=== PATIENT | female | born 1945 | race African-American/Black ===

== ENCOUNTER 2016-08-20 09:42 | Inpatient (IN) | payer MEDICARE, BC, OTHER ==
[2016-08-20] MEDS ORDERED: CEFTRIAXONE 1 GM/D5W RTU 50 ML IV ONE (09:44)
[2016-08-20] MEDS ORDERED: NORMAL SALINE 1000 ML 1,000 ML IV ONE (09:44)
[2016-08-20] MEDS ORDERED: NORMAL SALINE 1000 ML 1,000 ML IV PRN ×2 (09:45→19:50)
--- NOTE | 2016-08-20 09:45 | ER Document Report ---
ED Medical Screen (RME) - General Stated Complaint: FEVER AND BLOOD PRESSURE CONCERNS Time Seen by Provider: 08/20/16 09:44 Mode of Arrival: Wheelchair Information source: Patient, Relative Notes: 70-year-old female presents with history of diabetes with family's concern of fever and altered mental status I have greeted and performed a rapid initial assessment of this patient. A comprehensive ED assessment and evaluation of the patient, analysis of test results and completion of the medical decision making process will be conducted by additional ED providers. PHYSICAL EXAMINATION: GENERAL: Febrile but well-appearing, well-nourished and in no acute distress. HEAD: Atraumatic, normocephalic. EYES: Pupils equal round extraocular movements intact, conjunctiva are normal. ENT: Nares patent NECK: Normal range of motion LUNGS: No respiratory distress Musculoskeletal: Normal range of motion NEUROLOGICAL: Normal speech, normal gait. PSYCH: Normal mood, normal affect. SKIN: Warm, Dry, normal turgor, no rashes or lesions noted. TRAVEL OUTSIDE OF THE [place] IN LAST 30 DAYS: No - Related Data Allergies/Adverse Reactions: No Known Allergies Allergy (Unverified 11/02/15 00:22) Past Medical History - Past Medical History Cardiac Medical History: Reports: Hx Hypercholesterolemia, Hx Hypertension Endocrine Medical History: Reports: Hx Diabetes Mellitus Type 2 Past Surgical History: Reports: Hx Hysterectomy - Immunizations Hx Diphtheria, Pertussis, Tetanus Vaccination: Yes
[2016-08-20 10:18] LABS: ABSOLUTE BASOPHILS # (AUTO) 0.1 10^3/uL (0.0-0.2); ABSOLUTE EOSINOPHILS # (AUTO) 0.2 10^3/uL (0.0-0.6); ABSOLUTE LYMPHOCYTES (AUTO) 2.5 10^3/uL (0.5-4.7); ABSOLUTE NEUT (AUTO) 13.6 10^3/uL (1.7-8.2); BASOPHILS % (AUTO) 0.6 % (0-2); EOSINOPHILS % (AUTO) 1.2 % (0-6); HEMATOCRIT 30.3 % (36.0-47.0); HEMOGLOBIN 8.9 g/dL (12.0-15.5); HGB HCT DIFFERENCE -3.6; LYMPHOCYTES % (AUTO) 13.7 % (13-45); MEAN CORPUSCULAR HEMOGLOBIN 24.2 pg (27.0-33.4); MEAN CORPUSCULAR HGB CONC 29.5 g/dL (32.0-36.0); MEAN CORPUSCULAR VOLUME 82 fl (80-97); MONOCYTES % (AUTO) 10.7 % (3-13); RED BLOOD COUNT 3.69 10^6/uL (3.72-5.28); RED CELL DISTRIBUTION WIDTH 17.2 % (11.5-14.0); SEGMENTED NEUTROPHILS % (AUTO) 73.8 % (42-78); WHITE BLOOD COUNT 18.5 10^3/uL (4.0-10.5)
[2016-08-20 10:21] LABS: PROTHROMBIN TIME 13.6 SEC (11.4-15.4)
[2016-08-20 10:22] LABS: VENOUS BLOOD BASE EXCESS 3.2 mmol/L; VENOUS BLOOD HCO3 27.8 mmol/L (20-32); VENOUS BLOOD PCO2 42.8 mmHg (35-63); VENOUS BLOOD PH 7.43 (7.30-7.42)
--- NOTE | 2016-08-20 10:28 | ER Document Report ---
ED General - General Chief Complaint: Fever Stated Complaint: FEVER AND BLOOD PRESSURE CONCERNS Time Seen by Provider: 08/20/16 09:44 Mode of Arrival: Wheelchair Information source: Patient, Relative Notes: 70-year-old diabetic female presents with complaints of fever altered mental status from home. Patient appears to have been confused per family did not know that it was morning. she denies any nausea or vomiting TRAVEL OUTSIDE OF THE [place] IN LAST 30 DAYS: No - Related Data Allergies/Adverse Reactions: No Known Allergies Allergy (Unverified 11/02/15 00:22) Past Medical History - General Information source: Patient, Relative - Social History Smoking Status: Never Smoker Cigarette use (# per day): No Chew tobacco use (# tins/day): No Smoking Education Provided: No Family History: Reviewed & Not Pertinent Patient has suicidal ideation: No Patient has homicidal ideation: No - Past Medical History Cardiac Medical History: Reports: Hx Hypercholesterolemia, Hx Hypertension Endocrine Medical History: Reports: Hx Diabetes Mellitus Type 2 Renal/ Medical History: Denies: Hx Peritoneal Dialysis Past Surgical History: Reports: Hx Hysterectomy - Immunizations Hx Diphtheria, Pertussis, Tetanus Vaccination: Yes Review of Systems - Review of Systems Notes: REVIEW OF SYSTEMS: CONSTITUTIONAL : admitst ofevers and chills EENT: Denies eye, ear, throat, or mouth pain or symptoms. Denies nasal or sinus congestion or discharge. Denies throat, tongue, or mouth swelling or difficulty swallowing. CARDIOVASCULAR: Denies chest pain. Denies palpitations or racing or irregular heart beat. Denies ankle edema. RESPIRATORY: Denies cough, cold, or chest congestion. Denies shortness of breath, difficulty breathing, or wheezing. GASTROINTESTINAL: Denies abdominal pain or distention. Denies nausea, vomiting , or diarrhea. Denies blood in vomitus, stools, or per rectum. Denies black, tarry stools. Denies constipation. GENITOURINARY: Denies difficulty urinating, painful urination, burning, frequency, blood in urine, or discharge. FEMALE GENITOURINARY: Denies vaginal bleeding, heavy or abnormal periods, irregular periods. Denies vaginal discharge or odor. MUSCULOSKELETAL: Denies back or neck pain or stiffness. Denies joint pain or swelling. SKIN: Denies rash, lesions or sores. HEMATOLOGIC : Denies easy bruising or bleeding. LYMPHATIC: Denies swollen, enlarged glands. NEUROLOGICAL: confusion PSYCHIATRIC: Denies anxiety or stress. Denies depression, suicidal ideation, or homicidal ideation. ALL OTHER SYSTEMS REVIEWED AND NEGATIVE. PHYSICAL EXAMINATION: GENERAL: Febrile. HEAD: Atraumatic, normocephalic. EYES: Pupils equal round and reactive to light, extraocular movements intact, conjunctiva are normal. ENT: Nares patent, oropharynx clear without exudates. Moist mucous membranes. NECK: Normal range of motion, supple without lymphadenopathy LUNGS: Breath sounds clear to auscultation bilaterally and equal. No wheezes rales or rhonchi. HEART: Regular rate and rhythm without murmurs ABDOMEN: Soft, nontender, nondistended abdomen. No guarding, no rebound. No masses appreciated. Female : deferred Musculoskeletal: Normal range of motion, no pitting or edema. No cyanosis. NEUROLOGICAL: Cranial nerves grossly intact. Normal speech, normal gait. Normal sensory, motor exams PSYCH: Normal mood, normal affect. SKIN: Warm, Dry, normal turgor, no rashes or lesions noted. Dictation was performed using [employer] voice recognition software Physical Exam - Vital signs Vitals: Temp Pulse Resp BP Pulse Ox 102.4 F H 122 H 20 131/75 H 94 08/20/16 09:45 08/20/16 09:45 08/20/16 09:45 08/20/16 09:45 08/20/16 09:45 Course - Re-evaluation Re-evalutation: 08/20/16 11:28 Patient has met sirs criteria, does not appear to have an obvious source at this time but has a very high white count lactic acidosis, she will be treated medically and presumptively for pneumonia Patient given Tylenol antibiotics IV fluids - Vital Signs Vital signs: Temp Pulse Resp BP Pulse Ox 102.4 F H 122 H 17 137/77 H 92 08/20/16 09:45 08/20/16 09:45 08/20/16 11:01 08/20/16 11:01 08/20/16 11:01 - Laboratory Result Diagrams: 08/20/16 10:02 08/20/16 10:02 Laboratory results interpreted by me: 08/20/16 08/20/16 08/20/16 10:02 10:02 10:02 WBC 18.5 H RBC 3.69 L Hgb 8.9 L Hct 30.3 L MCH 24.2 L MCHC 29.5 L RDW 17.2 H Absolute Neutrophils 13.6 H Absolute Monocytes 2.0 H VBG pH Glucose 262 H Lactic Acid 2.4 H Calcium 10.6 H AST 62 H Alkaline Phosphatase 147 H Urine Protein Ur Leukocyte Esterase 08/20/16 08/20/16 10:02 10:45 WBC RBC Hgb Hct MCH MCHC RDW Absolute Neutrophils Absolute Monocytes VBG pH 7.43 H Glucose Lactic Acid Calcium AST Alkaline Phosphatase Urine Protein 30 H Ur Leukocyte Esterase TRACE H - Diagnostic Test Radiology reviewed: Image reviewed, Reports reviewed - EKG Interpretation by Ne EKG shows normal: Sinus rhythm, [place], Intervals Rate: Tachycardia Critical Care Note - Critical Care Note Total time excluding time spent on procedures (mins): 33 Comments: 33 minutes of critical care time spent in direct contact evaluating and reevaluating the patient, treating symptoms, reviewing labs and studies and speaking with family and consultants excluding any procedures Discharge - Discharge Clinical Impression: Increased lactic acid level Sepsis Qualifiers: Sepsis type: sepsis due to unspecified organism Qualified Code(s): A41.9 - Sepsis, unspecified organism Pneumonia Qualifiers: Pneumonia type: due to unspecified organism Laterality: unspecified laterality Lung location: unspecified part of lung Qualified Code(s): J18.9 - Pneumonia, unspecified organism Condition: Stable Disposition: ADMITTED INPATIENT Admitting Provider: Aditya Unit Admitted: [facility]
[2016-08-20 10:35] LABS: ALANINE AMINOTRANSFERASE 44 U/L (9-52); ALBUMIN 4.1 g/dL (3.5-5.0); ALKALINE PHOSPHATASE 147 U/L (38-126); ANION GAP 11 (5-19); ASPARTATE AMINO TRANSFERASE 62 U/L (14-36); BILIRUBIN,DIRECT 0.4 mg/dL (0.0-0.4); BILIRUBIN,TOTAL 1.1 mg/dL (0.2-1.3); BLOOD UREA NITROGEN 12 mg/dL (7-20); CALCIUM 10.6 mg/dL (8.4-10.2); CARBON DIOXIDE 28 mmol/L (22-30); CHLORIDE 99 mmol/L (98-107); CREATININE RESULT 0.82 mg/dL (0.52-1.25); GLUCOSE 262 mg/dL (75-110); POTASSIUM 4.7 mmol/L (3.6-5.0); TOTAL PROTEIN 8.1 g/dL (6.3-8.2)
--- NOTE | 2016-08-20 11:09 | RADIOLOGY REPORT (SQ) ---
EXAM DESCRIPTION: CHEST SINGLE VIEW COMPLETED DATE/TIME: 08/20/2016 10:49 am REASON FOR STUDY: fever COMPARISON: 07/14/2014, 05/02/2013 chest films EXAM PARAMETERS: NUMBER OF VIEWS: One view. TECHNIQUE: Single frontal radiographic view of the chest acquired. RADIATION DOSE: NA LIMITATIONS: None. FINDINGS: LUNGS AND PLEURA: No opacities, masses or pneumothorax. No pleural effusion. Benign calci fied granuloma right midlung. MEDIASTINUM AND HILAR STRUCTURES: No masses. Contour normal. HEART AND VASCULAR STRUCTURES: Heart normal in size. Normal vasculature. BONES: No acute findings. HARDWARE: None in the chest. OTHER: No other significant finding. IMPRESSION: NO ACUTE RADIOGRAPHIC FINDING IN THE CHEST. TECHNICAL DOCUMENTATION: JOB ID: [id number]
[2016-08-20 11:13] LABS: APPEARANCE,URINE SLIGHTLY-CLOUDY; BILIRUBIN,URINE NEGATIVE (NEGATIVE); GLUCOSE, URINE NEGATIVE (NEGATIVE); KETONES,URINE NEGATIVE (NEGATIVE); LEUKOCYTE ESTERASE,URINE TRACE (NEGATIVE); NITRITE,URINE NEGATIVE (NEGATIVE); PROTEIN,URINE 30 mg/dL (NEGATIVE); UROBILINOGEN,URINE NEGATIVE mg/dL (<2.0)
--- NOTE | 2016-08-20 12:58 | RADIOLOGY REPORT (SQ) ---
EXAM DESCRIPTION: CT FACIAL AREA WITH COMPLETED DATE/TIME: 08/20/2016 12:24 pm REASON FOR STUDY: fever COMPARISON: None. TECHNIQUE: Post contrast images through the facial bones and orbits windowed for bone and soft tissu e. Additional coronal and sagittal reconstructed images reviewed. All images stored on PACS. All CT scanners at this facility use dose modulation, iterative reconstruction, and/or weight based d osing when appropriate to reduce radiation dose to as low as reasonably achievable (ALARA). [facility]: Dose Right [facility]: CareDose [facility]: Dose Right [facility]: Teradose 4D [facility]: Wuzzuf CONTRAST TYPE AND DOSE: contrast/concentration: Isovue 370.00 mg/ml; Total Contrast Delivered: 50.0 ml; Total Saline Delivered: 50.0 ml RENAL FUNCTION: Creatinine 0.82 RADIATION DOSE: Up-to-date CT equipment and radiation dose reduction techniques were employed. CTDIv ol: 30.4 mGy. DLP: 610 mGy-cm. . LIMITATIONS: None. FINDINGS: FACIAL BONES: No fracture or bone lesion. ORBITS: Intact. No fracture. Symmetric intact globes and retroorbital soft tissues. PARANASAL SINUSES: No air-fluid levels worrisome for acute sinusitis. Minimal mucous membrane thicke andre roof left maxillary sinus. Left maxillary sinus outlet mildly narrowed by Lulú cell on grider l image 27. Pneumatized right middle terminate. Midline nasal septum. SOFT TISSUES: No mass or edema. No abnormal enhancement. INFERIOR BRAIN: Limited view. No acute findings. OTHER: There are dental caries along left lower incisor teeth, with periapical tooth root lucency wor risome for infection, best shown on axial images 17-21. IMPRESSION: No CT evidence of acute sinusitis. Dental caries along lower incisor teeth. Lateral left lower incisor has a periapical tooth root luce ncy worrisome for infection TECHNICAL DOCUMENTATION: JOB ID: [id number] Quality ID # [id number]: Final reports with documentation of one or more dose reduction techniques (e.g., Au tomated exposure control, adjustment of the mA and/or kV according to patient size, use of iterative reconstruction technique) 2010 [employer]- All Rights Reserved
--- NOTE | 2016-08-20 13:07 | EKG REPORT ---
SEVERITY:- ABNORMAL ECG - SINUS TACHYCARDIA LEFT AXIS DEVIATION NONSPECIFIC ST-T CHANGES- INFERIOR LEADS : Confirmed by: Isidoro Dobbs MD 20-Aug-2016 13:06:26
[2016-08-20] MEDS ORDERED: GLUCAGON,HUMAN RECOMB 1 MG INJ IM PRN (19:50)
[2016-08-20] MEDS ORDERED: DEXTROSE 50%-WATER 25 GM/50 ML DISP.SYRIN IV PRN ×2 (19:50)
[2016-08-20] MEDS ORDERED: DEXTROSE 40% GEL 15 GM TUBE PO PRN ×2 (19:50)
--- NOTE | 2016-08-20 20:19 | PDOC H&P ---
History of Present Illness Admission Date/PCP: 08/20/16 11:52 DAVID NORTON Patient complains of: Fever and altered mental status History of Present Illness: TRELL ISLAS is a 70 year old female known to my practice who was brought to he ED earlier today by family with above complaints. Family reported that patient demonstrated confusion and disorientation to time prior to arrival in the ED. No reported associated chest pain, difficulty with breathing nausea, vomiting, diarrhea or abdominal pain. Her initial evaluation in the ED was remarkable to elevated temperature at 102.4F, leukocytosis, abnormal urinalysis and facial CT scan suggestive of dental periapical infection. Patient demonstrated elevated blood glucose level. Her morbidities include DM type 2, HTN, and HLD. She was advised admission for further evaluation and management. Past Medical History Cardiac Medical History: Reports: Hyperlipidema, Hypertension Endocrine Medical History: Reports: Diabetes Mellitus Type 2 Past Surgical History Past Surgical History: Reports: Hysterectomy Social History Smoking Status: Never Smoker Family History Family History: Reviewed & Not Pertinent Parental Family History Reviewed: Yes Children Family History Reviewed: Yes Sibling(s) Family History Reviewed.: Yes Medication/Allergy Home Medications: Amox Tr/Potassium Clavulanate [Augmentin 875-125 mg Tablet] 05/02/13 Aspirin [Aspirin 81 mg Chewable Tablet] 05/02/13 Azithromycin [Zithromax 250 mg Tablet] 250 mg PO DAILY #6 tablet 05/02/13 Hydrocodone Bit/Homatropine [Hycodan Syrup 5-1.5 mg/ 5 ml Ud Cup] 5 ml PO ASDIR PRN #100 ml 05/02/13 Insulin NPH Hum/Reg Insulin Hm [Humulin 70/30 Kwikpen] 05/02/13 Lisinopril 05/02/13 Metformin HCl [Glucophage 500 mg Tablet] 500 mg PO BIDACBS #60 tab 05/02/13 Omeprazole 05/02/13 Pravastatin Sodium [Pravachol] 05/02/13 Hydrocodone Bit/Homatropine [Hycodan Syrup 5-1.5 mg/5 ml Ud Cup] 5 ml PO QHS # 60 ml 07/14/14 Allergies/Adverse Reactions: No Known Allergies Allergy (Unverified 11/02/15 00:22) Review of Systems Constitutional: PRESENT: chills, fever(s). ABSENT: as per HPI, anorexia, fatigue, headache(s), night sweats, weakness, weight gain, weight loss, other Eyes: PRESENT: visual disturbances Ears: ABSENT: hearing changes Nose, Mouth, and Throat: ABSENT: as per HPI, headache(s), mouth pain, sore throat, vertigo, other Cardiovascular: ABSENT: chest pain, dyspnea on exertion, edema, orthropnea, palpitations Respiratory: ABSENT: cough, hemoptysis Gastrointestinal: ABSENT: abdominal pain, constipation, diarrhea, hematemesis, hematochezia, nausea, vomiting Genitourinary: ABSENT: dysuria, hematuria Musculoskeletal: ABSENT: joint swelling Integumentary: ABSENT: rash, wounds Neurological: PRESENT: confusion. ABSENT: as per HPI, abnormal gait, abnormal movements, abnormal speech, convulsions, dizziness, focal weakness, frequent falls, lack of coordination, memory loss, numbness, paresthesias, restless legs , syncope, tingling, tremor(s), vertigo, weakness, other Psychiatric: ABSENT: anxiety, depression, homidical ideation, suicidal ideation Endocrine: ABSENT: cold intolerance, heat intolerance, polydipsia, polyuria Hematologic/Lymphatic: ABSENT: easy bleeding, easy bruising, lymphadenopathy Allergic/Immunologic: ABSENT: seasonal rhinorrhea Physical Exam Vital Signs: Temp Pulse Resp BP Pulse Ox 100.3 F 119 H 21 H 151/66 H 94 08/20/16 15:38 08/20/16 15:38 08/20/16 15:38 08/20/16 15:38 08/20/16 15:38 Intake & Output 08/19/16 08/20/16 08/21/16 06:59 06:59 06:59 Intake Total 240 Balance 240 Weight 106.1 kg General appearance: PRESENT: no acute distress, cooperative, obese Head exam: PRESENT: atraumatic, normocephalic Eye exam: PRESENT: conjunctiva pink, EOMI, PERRLA. ABSENT: scleral icterus Ear exam: PRESENT: normal external ear exam Mouth exam: PRESENT: moist, tongue midline Teeth exam: PRESENT: dental caries, dental tenderness, poor dentation Throat exam: ABSENT: post pharyngeal erythema, tonsillar erythema, tonsillar exudate, tonsillogmegaly, other Neck exam: PRESENT: full ROM. ABSENT: carotid bruit, JVD, lymphadenopathy, thyromegaly Respiratory exam: PRESENT: clear to auscultation [place] Cardiovascular exam: PRESENT: RRR. ABSENT: diastolic murmur, rubs, systolic murmur Pulses: PRESENT: normal dorsalis pedis pul, +2 pedal pulses bilateral Vascular exam: PRESENT: normal capillary refill GI/Abdominal exam: PRESENT: normal bowel sounds, soft. ABSENT: distended, guarding, mass, organolmegaly, rebound, tenderness Rectal exam: PRESENT: deferred Extremities exam: ABSENT: pedal edema Musculoskeletal exam: PRESENT: deformity - related to multiple joints involvement with arthritis Neurological exam: PRESENT: alert, awake, oriented to person, oriented to place , oriented to time, oriented to situation, CN II-XII grossly intact. ABSENT: motor sensory deficit Psychiatric exam: PRESENT: appropriate affect, normal mood. ABSENT: homicidal ideation, suicidal ideation Skin exam: PRESENT: dry, intact, warm. ABSENT: cyanosis, rash Results Laboratory Results: 08/20/16 14:24 Lactic Acid 2.2 H Impressions: Chest X-Ray 08/20/16 09:44 IMPRESSION: NO ACUTE RADIOGRAPHIC FINDING IN THE CHEST. Facial Bones CT 08/20/16 11:25 IMPRESSION: No CT evidence of acute sinusitis. Dental caries along lower incisor teeth. Lateral left lower incisor has a periapical tooth root lucency worrisome for infection Assessment & Plan - Diagnosis (1) SIRS due to infectious process without acute organ dysfunction Is this a current diagnosis for this admission?: YesPlan: See attending physician orders. (2) Probable sepsis Is this a current diagnosis for this admission?: YesPlan: See attending physician orders. (3) Infected dental carries Is this a current diagnosis for this admission?: YesPlan: See attending physician orders. (4) Toxic metabolic encephalopathy Is this a current diagnosis for this admission?: YesPlan: See attending physician orders. 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 (6) BMI 38.0-38.9,adult Is this a current diagnosis for this admission?: YesPlan: See attending physician orders. - Time Time Spent: Greater than 70 Minutes Medications reviewed and adjusted accordingly: Yes Anticipated discharge: Home Within: Other - Inpatient Certification Medical Necessity: Need Close Monitoring Due to Risk of Patient Decompensation, Need For IV Fluids, Need For Continuous Telemetry Monitoring, Need for IV Antibiotics, Risk of Complication if Not Cared For in Hospital Post Hospital Care: D/C Assistant Project Manager Documentation - Plan Summary Plan Summary: See attending physician orders.
[2016-08-20] MEDS ORDERED: INSULIN LISPRO 100 UNIT/ML 3 ML VIAL ONE (20:35)
[2016-08-20 20:36] LABS: PARTIAL THROMBOPLASTIN TIME 33.9 SEC (23.5-35.8)
[2016-08-20] MEDS: INSULIN LISPRO 100 UNIT/ML 3 ML VIAL SUBCUT PRN (20:52)
[2016-08-20] MEDS: ACETAMINOPHEN 325 MG TABLET PO PRN (20:52)
[2016-08-20] MEDS: AMPICILLIN SODIUM/SULBACTAM NA 3 GM in NORMAL SALINE 100 ML IV SCH (20:58)
[2016-08-20] MEDS ORDERED: ENOXAPARIN SODIUM INJ 40 MG/0.4 ML DISP.SYRIN SUBCUT ONE (21:30)
[2016-08-21] MEDS: AMPICILLIN SODIUM/SULBACTAM NA 3 GM in NORMAL SALINE 100 ML IV SCH ×4 (03:01→20:12)
[2016-08-21 05:14] LABS: ABSOLUTE BASOPHILS # (AUTO) 0.1 10^3/uL (0.0-0.2); ABSOLUTE EOSINOPHILS # (AUTO) 0.3 10^3/uL (0.0-0.6); ABSOLUTE LYMPHOCYTES (AUTO) 2.2 10^3/uL (0.5-4.7); BASOPHILS % (AUTO) 0.7 % (0-2); EOSINOPHILS % (AUTO) 2.5 % (0-6); HEMATOCRIT 26.5 % (36.0-47.0); HGB HCT DIFFERENCE -3.7; MEAN CORPUSCULAR HGB CONC 28.6 g/dL (32.0-36.0); MEAN CORPUSCULAR VOLUME 84 fl (80-97); MONOCYTES % (AUTO) 14.5 % (3-13); RED BLOOD COUNT 3.17 10^6/uL (3.72-5.28); RED CELL DISTRIBUTION WIDTH 17.1 % (11.5-14.0); SEGMENTED NEUTROPHILS % (AUTO) 66.3 % (42-78); WHITE BLOOD COUNT 13.6 10^3/uL (4.0-10.5)
[2016-08-21 05:27] LABS: HEMOGLOBIN 7.6 g/dL (12.0-15.5)
[2016-08-21 05:29] LABS: ALANINE AMINOTRANSFERASE 37 U/L (9-52); ALBUMIN 3.3 g/dL (3.5-5.0); ALKALINE PHOSPHATASE 113 U/L (38-126); ANION GAP 8 (5-19); ASPARTATE AMINO TRANSFERASE 38 U/L (14-36); BILIRUBIN,DIRECT 0.2 mg/dL (0.0-0.4); BILIRUBIN,TOTAL 0.9 mg/dL (0.2-1.3); BLOOD UREA NITROGEN 9 mg/dL (7-20); CALCIUM 9.9 mg/dL (8.4-10.2); CARBON DIOXIDE 26 mmol/L (22-30); CHLORIDE 105 mmol/L (98-107); CREATININE RESULT 0.75 mg/dL (0.52-1.25); GLUCOSE 323 mg/dL (75-110); POTASSIUM 4.7 mmol/L (3.6-5.0); SODIUM 138.8 mmol/L (137-145); TOTAL PROTEIN 6.8 g/dL (6.3-8.2)
[2016-08-21] MEDS: LANSOPRAZOLE 30 MG TAB.RAP.DR PO SCH (06:03)
[2016-08-21] MEDS ORDERED: FUROSEMIDE INJ/PF 20 MG/2 ML SDV IV PRN ×2 (06:11→13:55)
[2016-08-21] MEDS: ACETAMINOPHEN 325 MG TABLET PO PRN ×2 (08:18→15:24)
[2016-08-21] MEDS: INSULIN LISPRO 100 UNIT/ML 3 ML VIAL SUBCUT PRN ×3 (08:22→22:31)
[2016-08-21] MEDS: ENOXAPARIN SODIUM INJ 40 MG/0.4 ML DISP.SYRIN SUBCUT SCH (10:18)
--- NOTE | 2016-08-21 18:33 | PDOC PROGRESS REPORT ---
Subjective Progress Note for:: 08/21/16 Subjective:: Continue to have low grade fever. Remain on IV Unasyn coverage. Consulted with oral surgeon earlier today. hemoglobin reported less than 8gm/dL necessitating need for PRBC transfusion. No chest pain or difficulty with breathing. No nausea. vomiting or abdominal pain. Physical Exam Vital Signs: Temp Pulse Resp BP Pulse Ox 101.9 F H 113 H 18 149/79 H 96 08/21/16 17:24 08/21/16 17:24 08/21/16 17:24 08/21/16 17:24 08/21/16 17:24 Intake & Output 08/20/16 08/21/16 08/22/16 06:59 06:59 06:59 Intake Total 1301 1910 Balance 1301 1910 Weight 107.4 kg General appearance: PRESENT: no acute distress, cooperative, obese Head exam: PRESENT: atraumatic, normocephalic Eye exam: PRESENT: conjunctiva pink, EOMI, PERRLA. ABSENT: scleral icterus Mouth exam: PRESENT: moist, other - poor dentition with dental caries and infection Teeth exam: PRESENT: dental caries, dental tenderness, poor dentation Throat exam: ABSENT: post pharyngeal erythema, tonsillar erythema, tonsillar exudate, tonsillogmegaly, other Respiratory exam: PRESENT: clear to auscultation [place] Cardiovascular exam: PRESENT: RRR. ABSENT: diastolic murmur, rubs, systolic murmur GI/Abdominal exam: PRESENT: normal bowel sounds, soft. ABSENT: distended, guarding, mass, organolmegaly, rebound, tenderness Extremities exam: ABSENT: pedal edema Musculoskeletal exam: PRESENT: deformity - related to multiple joints involvment with arthritis Neurological exam: PRESENT: alert, awake, oriented to person, oriented to place , oriented to time, oriented to situation, CN II-XII grossly intact. ABSENT: motor sensory deficit Psychiatric exam: PRESENT: appropriate affect, normal mood. ABSENT: homicidal ideation, suicidal ideation Skin exam: PRESENT: dry, intact, warm. ABSENT: cyanosis, rash Results Laboratory Results: 08/21/16 04:57 08/21/16 04:57 08/21/16 08/21/16 08/21/16 04:57 04:57 04:57 WBC 13.6 H RBC 3.17 L Hgb 7.6 L Hct 26.5 L MCV 84 MCH 24.0 L MCHC 28.6 L RDW 17.1 H Plt Count 321 Seg Neutrophils % 66.3 Lymphocytes % 16.0 Monocytes % 14.5 H Eosinophils % 2.5 Basophils % 0.7 Absolute Neutrophils 9.0 H Absolute Lymphocytes 2.2 Absolute Monocytes 2.0 H Absolute Eosinophils 0.3 Absolute Basophils 0.1 Sodium 138.8 Potassium 4.7 Chloride 105 Carbon Dioxide 26 Anion Gap 8 BUN 9 Creatinine 0.75 Est GFR ( Amer) > 60 Est GFR (Non-Af Amer) > 60 Glucose 323 H Lactic Acid 1.1 Calcium 9.9 Total Bilirubin 0.9 AST 38 H ALT 37 Alkaline Phosphatase 113 Total Protein 6.8 Albumin 3.3 L Blood Type Antibody Screen 08/21/16 06:17 WBC RBC Hgb Hct MCV MCH MCHC RDW Plt Count Seg Neutrophils % Lymphocytes % Monocytes % Eosinophils % Basophils % Absolute Neutrophils Absolute Lymphocytes Absolute Monocytes Absolute Eosinophils Absolute Basophils Sodium Potassium Chloride Carbon Dioxide Anion Gap BUN Creatinine Est GFR ( Amer) Est GFR (Non-Af Amer) Glucose Lactic Acid Calcium Total Bilirubin AST ALT Alkaline Phosphatase Total Protein Albumin Blood Type A POSITIVE Antibody Screen NEGATIVE Impressions: Chest X-Ray 08/20/16 09:44 IMPRESSION: NO ACUTE RADIOGRAPHIC FINDING IN THE CHEST. Facial Bones CT 08/20/16 11:25 IMPRESSION: No CT evidence of acute sinusitis. Dental caries along lower incisor teeth. Lateral left lower incisor has a periapical tooth root lucency worrisome for infection Assessment & Plan - Diagnosis (1) SIRS due to infectious process without acute organ dysfunction Is this a current diagnosis for this admission?: YesPlan: Continue current antibiotic coverage with improvement in her leukocytosis. Follow up on blood culture findings. (2) Probable sepsis Is this a current diagnosis for this admission?: YesPlan: Continue current antibiotic coverage with improvement in her leukocytosis. Follow up on blood culture findings. Urine culture grew mixed urogenital thania with clinically insignificant colony count. (3) Infected dental carries Is this a current diagnosis for this admission?: YesPlan: Follow up with oral surgeon input. Maintain on IV Unasyn coverage. (4) Toxic metabolic encephalopathy Is this a current diagnosis for this admission?: YesPlan: Improved mental status. (5) Uncontrolled type 2 diabetes mellitus with complication Qualifiers: Diabetes mellitus fci insulin use: with fci use Qualified Code(s): E11.8 - Type 2 diabetes mellitus with unspecified complications; E11.65 - Type 2 diabetes mellitus with hyperglycemia Is this a current diagnosis for this admission?: YesPlan: Continue current medication management. Adjust dosing based on glycemic trend. (6) BMI 38.0-38.9,adult Is this a current diagnosis for this admission?: YesPlan: Continue current medication management. See attending physician orders. - Time Time Spent with patient: 25-34 minutes Medications reviewed and adjusted accordingly: Yes Anticipated discharge: Home Within: Other - Inpatient Certification Medical Necessity: Need Close Monitoring Due to Risk of Patient Decompensation, Need For IV Fluids, Need For Continuous Telemetry Monitoring, Need for IV Antibiotics, Risk of Complication if Not Cared For in Hospital Post Hospital Care: D/C [employer] Supervisor Documentation - Plan Summary Plan Summary: See attending physician orders.
[2016-08-21] MEDS ORDERED: TRAMADOL HCL 50 MG TABLET PO PRN (18:34)
[2016-08-21] MEDS ORDERED: NORMAL SALINE 1000 ML 1,000 ML IV PRN (18:35)
[2016-08-21 19:03] LABS: HEMATOCRIT 31.7 % (36.0-47.0); HEMOGLOBIN 9.4 g/dL (12.0-15.5); HGB HCT DIFFERENCE -3.5; MEAN CORPUSCULAR HEMOGLOBIN 25.1 pg (27.0-33.4); MEAN CORPUSCULAR HGB CONC 29.8 g/dL (32.0-36.0); MEAN CORPUSCULAR VOLUME 84 fl (80-97); RED BLOOD COUNT 3.76 10^6/uL (3.72-5.28); RED CELL DISTRIBUTION WIDTH 17.4 % (11.5-14.0); WHITE BLOOD COUNT 16.3 10^3/uL (4.0-10.5)
[2016-08-21] MEDS: EZETIMIBE 10 MG TABLET PO SCH (22:31)
[2016-08-22] MEDS: AMPICILLIN SODIUM/SULBACTAM NA 3 GM in NORMAL SALINE 100 ML IV SCH ×4 (03:36→22:15)
[2016-08-22] MEDS: ACETAMINOPHEN 325 MG TABLET PO PRN ×2 (03:59→15:32)
[2016-08-22 05:42] LABS: ABSOLUTE BASOPHILS # (AUTO) 0.1 10^3/uL (0.0-0.2); ABSOLUTE EOSINOPHILS # (AUTO) 0.3 10^3/uL (0.0-0.6); ABSOLUTE MONOCYTES (AUTO) 1.9 10^3/uL (0.1-1.4); ABSOLUTE NEUT (AUTO) 10.7 10^3/uL (1.7-8.2); BASOPHILS % (AUTO) 0.5 % (0-2); EOSINOPHILS % (AUTO) 2.1 % (0-6); LYMPHOCYTES % (AUTO) 13.2 % (13-45); MEAN CORPUSCULAR HEMOGLOBIN 25.2 pg (27.0-33.4); MEAN CORPUSCULAR HGB CONC 29.9 g/dL (32.0-36.0); MEAN CORPUSCULAR VOLUME 85 fl (80-97); MONOCYTES % (AUTO) 12.5 % (3-13); RED BLOOD COUNT 3.56 10^6/uL (3.72-5.28); RED CELL DISTRIBUTION WIDTH 17.1 % (11.5-14.0); SEGMENTED NEUTROPHILS % (AUTO) 71.7 % (42-78)
[2016-08-22] MEDS: INSULIN LISPRO 100 UNIT/ML 3 ML VIAL SUBCUT PRN ×4 (06:23→23:17)
[2016-08-22] MEDS: LANSOPRAZOLE 30 MG TAB.RAP.DR PO SCH (06:23)
[2016-08-22] MEDS: METFORMIN HCL 500 MG TABLET PO SCH ×2 (08:05→15:32)
[2016-08-22] MEDS: HUM INSULIN NPH/REG INSULIN HM 100 UNIT/1 ML 3 ML SUBCUT SCH ×2 (08:12→18:20)
[2016-08-22] MEDS: ASPIRIN 81 MG TABLET, CHEWABLE PO SCH (09:04)
[2016-08-22] MEDS: ENOXAPARIN SODIUM INJ 40 MG/0.4 ML DISP.SYRIN SUBCUT SCH (09:04)
[2016-08-22] MEDS: LOSARTAN POTASSIUM 50 MG TABLET PO SCH (09:06)
[2016-08-22] MEDS ORDERED: (PENDING PHARMACY ID) (Irbesartan [Avapro] 300 MG) PO SCH ×2 (10:00)
--- NOTE | 2016-08-22 19:42 | PDOC PROGRESS REPORT ---
Subjective Progress Note for:: 08/22/16 Subjective:: Patient reported episode of fever earlier this morning. Remain on IV Unasyn coverage. No chest pain or difficulty with breathing. No nausea. vomiting or abdominal pain. Physical Exam Vital Signs: Temp Pulse Resp BP Pulse Ox 102.2 F H 109 H 19 149/79 H 95 08/22/16 15:16 08/22/16 15:16 08/22/16 15:16 08/22/16 15:16 08/22/16 15:16 Intake & Output 08/21/16 08/22/16 08/23/16 06:59 06:59 06:59 Intake Total 1301 3132 828 Output Total 1 Balance 1301 3132 827 Weight 107.4 kg 106.2 kg Physical Exam: General appearance: PRESENT: no acute distress, cooperative, obese Head exam: PRESENT: atraumatic, normocephalic Eye exam: PRESENT: conjunctiva pink, EOMI, PERRLA. ABSENT: scleral icterus Mouth exam: PRESENT: moist, other - poor dentition with dental caries and infection Teeth exam: PRESENT: dental caries, dental tenderness, poor dentition Respiratory exam: PRESENT: clear to auscultation [place] Cardiovascular exam: PRESENT: RRR. ABSENT: diastolic murmur, rubs, systolic murmur GI/Abdominal exam: PRESENT: normal bowel sounds, soft. ABSENT: distended, guarding, mass, organomegaly, rebound, tenderness Extremities exam: ABSENT: pedal edema Musculoskeletal exam: PRESENT: deformity - related to multiple joints involvment with arthritis Neurological exam: PRESENT: alert, awake, oriented to person, oriented to place , oriented to time, oriented to situation, CN II-XII grossly intact. ABSENT: motor sensory deficit Psychiatric exam: PRESENT: appropriate affect, normal mood. ABSENT: homicidal ideation, suicidal ideation Skin exam: PRESENT: dry, intact, warm. ABSENT: cyanosis, rash Results Laboratory Results: 08/22/16 04:39 08/21/16 04:57 08/22/16 08/22/16 03:45 04:39 WBC 15.0 H RBC 3.56 L Hgb 9.0 L Hct 30.0 L MCV 85 MCH 25.2 L MCHC 29.9 L RDW 17.1 H Plt Count 297 Seg Neutrophils % 71.7 Lymphocytes % 13.2 Monocytes % 12.5 Eosinophils % 2.1 Basophils % 0.5 Absolute Neutrophils 10.7 H Absolute Lymphocytes 2.0 Absolute Monocytes 1.9 H Absolute Eosinophils 0.3 Absolute Basophils 0.1 Stool Occult Blood POSITIVE Impressions: Chest X-Ray 08/20/16 09:44 IMPRESSION: NO ACUTE RADIOGRAPHIC FINDING IN THE CHEST. Facial Bones CT 08/20/16 11:25 IMPRESSION: No CT evidence of acute sinusitis. Dental caries along lower incisor teeth. Lateral left lower incisor has a periapical tooth root lucency worrisome for infection Assessment & Plan - Diagnosis (1) SIRS due to infectious process without acute organ dysfunction Is this a current diagnosis for this admission?: YesPlan: Continue current antibiotic coverage. I will add IV Cleocin to her antibiotic regimen. Follow up on blood culture findings. (2) Probable sepsis Is this a current diagnosis for this admission?: YesPlan: Continue current antibiotic coverage with IV Unasyn and Cleocin coverage.Follow up on blood culture findings. (3) Infected dental carries Is this a current diagnosis for this admission?: YesPlan: Follow up with oral surgeon input. Maintain on IV Unasyn with addition of IV Cleocin coverage. (4) Toxic metabolic encephalopathy Is this a current diagnosis for this admission?: YesPlan: Improved mental status. 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 (6) BMI 38.0-38.9,adult Is this a current diagnosis for this admission?: Yes - Time Time Spent with patient: 25-34 minutes Medications reviewed and adjusted accordingly: Yes Anticipated discharge: Home Within: Other - Inpatient Certification Medical Necessity: Need Close Monitoring Due to Risk of Patient Decompensation, Need For IV Fluids, Need For Continuous Telemetry Monitoring, Need for IV Antibiotics, Risk of Complication if Not Cared For in Hospital Post Hospital Care: D/C Prestidigitator Documentation - Plan Summary Plan Summary: See attending physician orders.
[2016-08-22] MEDS ORDERED: CLINDAMYCIN 600 MG/D5W RTU 600 MG/50 ML RTUPB IV ONE (20:00)
[2016-08-22] MEDS: EZETIMIBE 10 MG TABLET PO SCH (22:19)
[2016-08-23] MEDS: CLINDAMYCIN 600 MG/D5W RTU 600 MG/50 ML RTUPB IV SCH ×3 (02:35→17:59)
[2016-08-23] MEDS: AMPICILLIN SODIUM/SULBACTAM NA 3 GM in NORMAL SALINE 100 ML IV SCH ×4 (04:34→21:35)
[2016-08-23] MEDS: LANSOPRAZOLE 30 MG TAB.RAP.DR PO SCH (05:18)
[2016-08-23 06:42] LABS: ABSOLUTE BASOPHILS # (AUTO) 0.1 10^3/uL (0.0-0.2); ABSOLUTE EOSINOPHILS # (AUTO) 0.3 10^3/uL (0.0-0.6); ABSOLUTE LYMPHOCYTES (AUTO) 2.2 10^3/uL (0.5-4.7); ABSOLUTE MONOCYTES (AUTO) 1.4 10^3/uL (0.1-1.4); ABSOLUTE NEUT (AUTO) 10.2 10^3/uL (1.7-8.2); BASOPHILS % (AUTO) 0.5 % (0-2); HEMATOCRIT 30.6 % (36.0-47.0); HEMOGLOBIN 9.1 g/dL (12.0-15.5); HGB HCT DIFFERENCE -3.3; LYMPHOCYTES % (AUTO) 15.7 % (13-45); MEAN CORPUSCULAR HEMOGLOBIN 25.1 pg (27.0-33.4); MEAN CORPUSCULAR HGB CONC 29.8 g/dL (32.0-36.0); MEAN CORPUSCULAR VOLUME 84 fl (80-97); MONOCYTES % (AUTO) 10.1 % (3-13); RED BLOOD COUNT 3.63 10^6/uL (3.72-5.28); RED CELL DISTRIBUTION WIDTH 17.5 % (11.5-14.0); SEGMENTED NEUTROPHILS % (AUTO) 71.7 % (42-78); WHITE BLOOD COUNT 14.3 10^3/uL (4.0-10.5)
[2016-08-23] MEDS: HUM INSULIN NPH/REG INSULIN HM 100 UNIT/1 ML 3 ML SUBCUT SCH ×2 (08:23→18:00)
[2016-08-23] MEDS: METFORMIN HCL 500 MG TABLET PO SCH ×2 (08:23→15:50)
[2016-08-23] MEDS: LOSARTAN POTASSIUM 50 MG TABLET PO SCH (10:15)
[2016-08-23] MEDS: ASPIRIN 81 MG TABLET, CHEWABLE PO SCH (10:16)
[2016-08-23] MEDS: ENOXAPARIN SODIUM INJ 40 MG/0.4 ML DISP.SYRIN SUBCUT SCH (10:16)
[2016-08-23] MEDS: INSULIN LISPRO 100 UNIT/ML 3 ML VIAL SUBCUT PRN ×2 (12:44→23:16)
--- NOTE | 2016-08-23 18:48 | PDOC PROGRESS REPORT ---
Subjective Progress Note for:: 08/23/16 Subjective:: Patient reported no fever or chills. She is currently on IV Unasyn and Cleocin coverage. No chest pain or difficulty with breathing. No nausea. vomiting or abdominal pain. Physical Exam Vital Signs: Temp Pulse Resp BP Pulse Ox 99.1 F 101 H 18 158/85 H 99 08/23/16 15:15 08/23/16 15:15 08/23/16 15:15 08/23/16 15:15 08/23/16 15:15 Intake & Output 08/22/16 08/23/16 08/24/16 06:59 06:59 06:59 Intake Total 3132 2161 118 Output Total 1 Balance 3132 2160 118 Weight 106.2 kg 105.46 kg 105.46 kg Physical Exam: General appearance: PRESENT: no acute distress, cooperative, obese Head exam: PRESENT: atraumatic, normocephalic Eye exam: PRESENT: conjunctiva pink, EOMI, PERRLA. ABSENT: scleral icterus Mouth exam: PRESENT: moist, other - poor dentition with dental caries and infection Teeth exam: PRESENT: dental caries, less dental tenderness to palpation, poor dentition Respiratory exam: PRESENT: clear to auscultation [place] Cardiovascular exam: PRESENT: RRR. ABSENT: diastolic murmur, rubs, systolic murmur GI/Abdominal exam: PRESENT: normal bowel sounds, soft. ABSENT: distended, guarding, mass, organomegaly, rebound, tenderness Extremities exam: ABSENT: pedal edema Musculoskeletal exam: PRESENT: deformity - related to multiple joints involvement with arthritis Neurological exam: PRESENT: alert, awake, oriented to person, oriented to place , oriented to time, oriented to situation, CN II-XII grossly intact. ABSENT: motor sensory deficit Psychiatric exam: PRESENT: appropriate affect, normal mood. ABSENT: homicidal ideation, suicidal ideation Skin exam: PRESENT: dry, intact, warm. ABSENT: cyanosis, rash Results Laboratory Results: 08/23/16 06:29 08/21/16 04:57 08/23/16 06:29 WBC 14.3 H RBC 3.63 L Hgb 9.1 L Hct 30.6 L MCV 84 MCH 25.1 L MCHC 29.8 L RDW 17.5 H Plt Count 306 Seg Neutrophils % 71.7 Lymphocytes % 15.7 Monocytes % 10.1 Eosinophils % 2.0 Basophils % 0.5 Absolute Neutrophils 10.2 H Absolute Lymphocytes 2.2 Absolute Monocytes 1.4 Absolute Eosinophils 0.3 Absolute Basophils 0.1 Impressions: Chest X-Ray 08/20/16 09:44 IMPRESSION: NO ACUTE RADIOGRAPHIC FINDING IN THE CHEST. Facial Bones CT 08/20/16 11:25 IMPRESSION: No CT evidence of acute sinusitis. Dental caries along lower incisor teeth. Lateral left lower incisor has a periapical tooth root lucency worrisome for infection Assessment & Plan - Diagnosis (1) SIRS due to infectious process without acute organ dysfunction Is this a current diagnosis for this admission?: Yes (2) Probable sepsis Is this a current diagnosis for this admission?: Yes (3) Infected dental carries Is this a current diagnosis for this admission?: Yes (4) Toxic metabolic encephalopathy Is this a current diagnosis for this admission?: Yes (5) Uncontrolled type 2 diabetes mellitus with complication Qualifiers: Diabetes mellitus chcf insulin use: with chcf use Qualified Code(s): E11.8 - Type 2 diabetes mellitus with unspecified complications; E11.65 - Type 2 diabetes mellitus with hyperglycemia Is this a current diagnosis for this admission?: Yes (6) BMI 38.0-38.9,adult Is this a current diagnosis for this admission?: Yes - Time Time Spent with patient: 25-34 minutes Medications reviewed and adjusted accordingly: Yes Anticipated discharge: Home with Homehealth Within: Other - Inpatient Certification Based on my medical assessment, after consideration of the patient's comorbidities, presenting symptoms, or acuity I expect that the services needed warrant INPATIENT care.: Yes I certify that my determination is in accordance with my understanding of Medicare's requirements for reasonable and necessary INPATIENT services [42 CFR 412.3e].: Yes Medical Necessity: Need Close Monitoring Due to Risk of Patient Decompensation, Need For IV Fluids, Need For Continuous Telemetry Monitoring, Need for IV Antibiotics, Risk of Complication if Not Cared For in Hospital Post Hospital Care: D/C Tectonophysicist Documentation - Plan Summary Plan Summary: Continue on current medication management. Follow up on culture findings.
[2016-08-23] MEDS: EZETIMIBE 10 MG TABLET PO SCH (21:34)
[2016-08-24] MEDS: CLINDAMYCIN 600 MG/D5W RTU 600 MG/50 ML RTUPB IV SCH ×3 (02:09→17:32)
[2016-08-24] MEDS: AMPICILLIN SODIUM/SULBACTAM NA 3 GM in NORMAL SALINE 100 ML IV SCH ×4 (03:17→21:13)
[2016-08-24] MEDS: LANSOPRAZOLE 30 MG TAB.RAP.DR PO SCH (05:10)
[2016-08-24] MEDS: ACETAMINOPHEN 325 MG TABLET PO PRN ×2 (07:12→17:36)
[2016-08-24] MEDS: HUM INSULIN NPH/REG INSULIN HM 100 UNIT/1 ML 3 ML SUBCUT SCH ×2 (08:17→17:33)
[2016-08-24] MEDS: METFORMIN HCL 500 MG TABLET PO SCH ×2 (08:17→15:11)
[2016-08-24] MEDS: LOSARTAN POTASSIUM 50 MG TABLET PO SCH (09:10)
[2016-08-24] MEDS: ASPIRIN 81 MG TABLET, CHEWABLE PO SCH (09:10)
[2016-08-24] MEDS: ENOXAPARIN SODIUM INJ 40 MG/0.4 ML DISP.SYRIN SUBCUT SCH (09:11)
[2016-08-24] MEDS: INSULIN LISPRO 100 UNIT/ML 3 ML VIAL SUBCUT PRN (12:37)
[2016-08-24 16:00] LABS: ABSOLUTE BASOPHILS # (AUTO) 0.1 10^3/uL (0.0-0.2); ABSOLUTE EOSINOPHILS # (AUTO) 0.5 10^3/uL (0.0-0.6); ABSOLUTE LYMPHOCYTES (AUTO) 2.3 10^3/uL (0.5-4.7); ABSOLUTE MONOCYTES (AUTO) 1.1 10^3/uL (0.1-1.4); ABSOLUTE NEUT (AUTO) 8.3 10^3/uL (1.7-8.2); BASOPHILS % (AUTO) 0.6 % (0-2); EOSINOPHILS % (AUTO) 3.9 % (0-6); HEMATOCRIT 31.6 % (36.0-47.0); HEMOGLOBIN 9.5 g/dL (12.0-15.5); HGB HCT DIFFERENCE -3.1; LYMPHOCYTES % (AUTO) 18.5 % (13-45); MEAN CORPUSCULAR HEMOGLOBIN 25.2 pg (27.0-33.4); MEAN CORPUSCULAR HGB CONC 30.1 g/dL (32.0-36.0); MEAN CORPUSCULAR VOLUME 84 fl (80-97); MONOCYTES % (AUTO) 9.1 % (3-13); RED BLOOD COUNT 3.78 10^6/uL (3.72-5.28); RED CELL DISTRIBUTION WIDTH 18.3 % (11.5-14.0); SEGMENTED NEUTROPHILS % (AUTO) 67.9 % (42-78); WHITE BLOOD COUNT 12.2 10^3/uL (4.0-10.5)
[2016-08-24 16:15] LABS: ALANINE AMINOTRANSFERASE 49 U/L (9-52); ALBUMIN 3.5 g/dL (3.5-5.0); ALKALINE PHOSPHATASE 115 U/L (38-126); ANION GAP 10 (5-19); ASPARTATE AMINO TRANSFERASE 45 U/L (14-36); BILIRUBIN,DIRECT 0.4 mg/dL (0.0-0.4); BILIRUBIN,TOTAL 0.7 mg/dL (0.2-1.3); BLOOD UREA NITROGEN 9 mg/dL (7-20); CALCIUM 10.3 mg/dL (8.4-10.2); CARBON DIOXIDE 30 mmol/L (22-30); CHLORIDE 105 mmol/L (98-107); CREATININE RESULT 0.75 mg/dL (0.52-1.25); GLUCOSE 86 mg/dL (75-110); POTASSIUM 4.1 mmol/L (3.6-5.0); SODIUM 145.3 mmol/L (137-145); TOTAL PROTEIN 7.4 g/dL (6.3-8.2)
--- NOTE | 2016-08-24 16:23 | PDOC PROGRESS REPORT ---
Subjective Progress Note for:: 08/24/16 Subjective:: No fever or chills. She is currently on IV Unasyn and Cleocin coverage. No chest pain or difficulty with breathing. No nausea. vomiting or abdominal pain. Her accucheck glucose level is showing improvement. Physical Exam Vital Signs: Temp Pulse Resp BP Pulse Ox 98.6 F 95 18 146/81 H 100 08/24/16 11:36 08/24/16 14:00 08/24/16 11:36 08/24/16 11:36 08/24/16 11:36 Intake & Output 08/23/16 08/24/16 08/25/16 06:59 06:59 06:59 Intake Total 2161 2976 Output Total 1 Balance 2160 2976 Weight 105.46 kg 105.233 kg Physical Exam: General appearance: PRESENT: no acute distress, cooperative, obese Head exam: PRESENT: atraumatic, normocephalic Eye exam: PRESENT: conjunctiva pink, EOMI, PERRLA. ABSENT: scleral icterus Mouth exam: PRESENT: moist, other - poor dentition with dental caries and infection Teeth exam: PRESENT: dental caries, less dental tenderness to palpation, poor dentition Respiratory exam: PRESENT: clear to auscultation [place] Cardiovascular exam: PRESENT: RRR. ABSENT: diastolic murmur, rubs, systolic murmur GI/Abdominal exam: PRESENT: normal bowel sounds, soft. ABSENT: distended, guarding, mass, organomegaly, rebound, tenderness Extremities exam: ABSENT: pedal edema Musculoskeletal exam: PRESENT: deformity - related to multiple joints involvement with arthritis Neurological exam: PRESENT: alert, awake, oriented to person, oriented to place , oriented to time, oriented to situation, CN II-XII grossly intact. ABSENT: motor sensory deficit Psychiatric exam: PRESENT: appropriate affect, normal mood. ABSENT: homicidal ideation, suicidal ideation Skin exam: PRESENT: dry, intact, warm. ABSENT: cyanosis, rash Results Laboratory Results: 08/24/16 15:49 08/24/16 15:49 08/24/16 08/24/16 15:49 15:49 WBC 12.2 H RBC 3.78 Hgb 9.5 L Hct 31.6 L MCV 84 MCH 25.2 L MCHC 30.1 L RDW 18.3 H Plt Count 321 Seg Neutrophils % 67.9 Lymphocytes % 18.5 Monocytes % 9.1 Eosinophils % 3.9 Basophils % 0.6 Absolute Neutrophils 8.3 H Absolute Lymphocytes 2.3 Absolute Monocytes 1.1 Absolute Eosinophils 0.5 Absolute Basophils 0.1 Sodium 145.3 H Potassium 4.1 Chloride 105 Carbon Dioxide 30 Anion Gap 10 BUN 9 Creatinine 0.75 Est GFR ( Amer) > 60 Est GFR (Non-Af Amer) > 60 Glucose 86 Calcium 10.3 H Total Bilirubin 0.7 AST 45 H ALT 49 Alkaline Phosphatase 115 Total Protein 7.4 Albumin 3.5 Impressions: Chest X-Ray 08/20/16 09:44 IMPRESSION: NO ACUTE RADIOGRAPHIC FINDING IN THE CHEST. Facial Bones CT 08/20/16 11:25 IMPRESSION: No CT evidence of acute sinusitis. Dental caries along lower incisor teeth. Lateral left lower incisor has a periapical tooth root lucency worrisome for infection Assessment & Plan - Diagnosis (1) SIRS due to infectious process without acute organ dysfunction Is this a current diagnosis for this admission?: Yes (2) Probable sepsis Is this a current diagnosis for this admission?: Yes (3) Infected dental carries Is this a current diagnosis for this admission?: Yes (4) Toxic metabolic encephalopathy Is this a current diagnosis for this admission?: Yes (5) Uncontrolled type 2 diabetes mellitus with complication Qualifiers: Diabetes mellitus penitentiary insulin use: with penitentiary use Qualified Code(s): E11.8 - Type 2 diabetes mellitus with unspecified complications; E11.65 - Type 2 diabetes mellitus with hyperglycemia Is this a current diagnosis for this admission?: Yes (6) BMI 38.0-38.9,adult Is this a current diagnosis for this admission?: Yes - Time Time Spent with patient: 25-34 minutes Medications reviewed and adjusted accordingly: Yes Anticipated discharge: Home Within: Other - Inpatient Certification Medical Necessity: Need Close Monitoring Due to Risk of Patient Decompensation, Need For IV Fluids, Need For Continuous Telemetry Monitoring, Need for IV Antibiotics, Risk of Complication if Not Cared For in Hospital 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 Maintain on all other current medication management with gradual improvement in her glycemic control.
[2016-08-24] MEDS: EZETIMIBE 10 MG TABLET PO SCH (21:17)
[2016-08-25] MEDS: CLINDAMYCIN 600 MG/D5W RTU 600 MG/50 ML RTUPB IV SCH ×3 (02:43→18:54)
[2016-08-25] MEDS: AMPICILLIN SODIUM/SULBACTAM NA 3 GM in NORMAL SALINE 100 ML IV SCH ×4 (03:24→22:17)
[2016-08-25] MEDS: LANSOPRAZOLE 30 MG TAB.RAP.DR PO SCH (10:20)
[2016-08-25] MEDS: ASPIRIN 81 MG TABLET, CHEWABLE PO SCH (10:22)
[2016-08-25] MEDS: LOSARTAN POTASSIUM 50 MG TABLET PO SCH (10:22)
[2016-08-25] MEDS: ENOXAPARIN SODIUM INJ 40 MG/0.4 ML DISP.SYRIN SUBCUT SCH (10:25)
[2016-08-25] MEDS: METFORMIN HCL 500 MG TABLET PO SCH ×2 (10:32→18:04)
[2016-08-25] MEDS: HUM INSULIN NPH/REG INSULIN HM 100 UNIT/1 ML 3 ML SUBCUT SCH ×2 (12:26→18:05)
--- NOTE | 2016-08-25 15:24 | PDOC PROGRESS REPORT ---
Subjective Progress Note for:: 08/25/16 Subjective:: She was seen by the bedside, she complained of abdominal pain in the right lower quadrant of the abdomen, she was admitted because of metabolic encephalopathy there was associated fever on admission. Sepsis was questioned as possible cause of the metabolic encephalopathy, the source of the infection was suspected to be dental in origin because she has dental caries. She is presently on IV antibiotic clindamycin and Unasyn Physical Exam Vital Signs: Temp Pulse Resp BP Pulse Ox 99.0 F 87 18 155/81 H 98 08/25/16 11:35 08/25/16 11:35 08/25/16 11:35 08/25/16 11:35 08/25/16 11:35 Intake & Output 08/24/16 08/25/16 08/26/16 06:59 06:59 06:59 Intake Total 2976 2640 Balance 2976 2640 Weight 105.233 kg 107.8 kg General appearance: PRESENT: no acute distress Eye exam: PRESENT: PERRLA Neck exam: PRESENT: full ROM Respiratory exam: PRESENT: clear to auscultation [place] Cardiovascular exam: PRESENT: +S1, +S2 GI/Abdominal exam: PRESENT: soft, tenderness Neurological exam: PRESENT: alert, CN II-XII grossly intact Results Laboratory Results: 08/24/16 15:49 08/24/16 15:49 08/24/16 08/24/16 15:49 15:49 WBC 12.2 H RBC 3.78 Hgb 9.5 L Hct 31.6 L MCV 84 MCH 25.2 L MCHC 30.1 L RDW 18.3 H Plt Count 321 Seg Neutrophils % 67.9 Lymphocytes % 18.5 Monocytes % 9.1 Eosinophils % 3.9 Basophils % 0.6 Absolute Neutrophils 8.3 H Absolute Lymphocytes 2.3 Absolute Monocytes 1.1 Absolute Eosinophils 0.5 Absolute Basophils 0.1 Sodium 145.3 H Potassium 4.1 Chloride 105 Carbon Dioxide 30 Anion Gap 10 BUN 9 Creatinine 0.75 Est GFR ( Amer) > 60 Est GFR (Non-Af Amer) > 60 Glucose 86 Calcium 10.3 H Total Bilirubin 0.7 AST 45 H ALT 49 Alkaline Phosphatase 115 Total Protein 7.4 Albumin 3.5 Impressions: Chest X-Ray 08/20/16 09:44 IMPRESSION: NO ACUTE RADIOGRAPHIC FINDING IN THE CHEST. Facial Bones CT 08/20/16 11:25 IMPRESSION: No CT evidence of acute sinusitis. Dental caries along lower incisor teeth. Lateral left lower incisor has a periapical tooth root lucency worrisome for infection Assessment & Plan - Diagnosis (1) Abdominal pain Qualifiers: Abdominal location: right lower quadrant Qualified Code(s): R10.31 - Right lower quadrant pain Plan: She has pain in the right lower quadrant the etiology of the pain is not clear CAT scan of the abdomen and pelvis to be ordered (2) Infected dental carries Is this a current diagnosis for this admission?: Yes (3) SIRS due to infectious process without acute organ dysfunction Is this a current diagnosis for this admission?: YesPlan: She will continue present IV antibiotic (4) Toxic metabolic encephalopathy Is this a current diagnosis for this admission?: YesPlan: Patient is presently oriented to time place and person there is no evidence of encephalopathy at this time
[2016-08-25] MEDS: NORMAL SALINE 1000 ML 1,000 ML IV PRN (18:52)
[2016-08-25] MEDS ORDERED: NYSTATIN TOPICAL POWDER 15 GM TP SCH (22:00)
[2016-08-25] MEDS: EZETIMIBE 10 MG TABLET PO SCH (22:14)
[2016-08-25] MEDS ORDERED: NYSTATIN OINTMENT 15 GM TUBE ONE (22:54)
[2016-08-26] MEDS: CLINDAMYCIN 600 MG/D5W RTU 600 MG/50 ML RTUPB IV SCH ×3 (01:58→17:35)
[2016-08-26] MEDS: AMPICILLIN SODIUM/SULBACTAM NA 3 GM in NORMAL SALINE 100 ML IV SCH ×4 (04:55→21:36)
[2016-08-26] MEDS: LANSOPRAZOLE 30 MG TAB.RAP.DR PO SCH (06:24)
[2016-08-26] MEDS: NORMAL SALINE 1000 ML 1,000 ML IV PRN (10:44)
[2016-08-26] MEDS: HUM INSULIN NPH/REG INSULIN HM 100 UNIT/1 ML 3 ML SUBCUT SCH ×2 (10:47→17:35)
[2016-08-26] MEDS: ASPIRIN 81 MG TABLET, CHEWABLE PO SCH (10:48)
[2016-08-26] MEDS: LOSARTAN POTASSIUM 50 MG TABLET PO SCH (10:48)
[2016-08-26] MEDS: ENOXAPARIN SODIUM INJ 40 MG/0.4 ML DISP.SYRIN SUBCUT SCH (10:49)
[2016-08-26] MEDS: METFORMIN HCL 500 MG TABLET PO SCH ×2 (10:51→17:30)
[2016-08-26] MEDS: NYSTATIN OINTMENT 15 GM TUBE TP SCH ×2 (10:58→17:37)
--- NOTE | 2016-08-26 14:26 | PDOC PROGRESS REPORT ---
Subjective Progress Note for:: 08/26/16 Subjective:: She was seen by the bedside, she complained of abdominal pain yesterday, she said the pain is resolved she feels much better. Physical Exam Vital Signs: Temp Pulse Resp BP Pulse Ox 98.6 F 87 18 166/89 H 98 08/26/16 11:02 08/26/16 14:00 08/26/16 11:02 08/26/16 11:02 08/26/16 11:02 Intake & Output 08/25/16 08/26/16 08/27/16 06:59 06:59 06:59 Intake Total 2640 3880 Balance 2640 3880 Weight 107.8 kg 107.4 kg General appearance: PRESENT: no acute distress Eye exam: PRESENT: PERRLA Respiratory exam: PRESENT: clear to auscultation [place] Cardiovascular exam: PRESENT: +S1, +S2 Neurological exam: PRESENT: alert, awake, oriented to person, oriented to place , oriented to time, oriented to situation, CN II-XII grossly intact. ABSENT: motor sensory deficit Results Laboratory Results: 08/24/16 15:49 08/24/16 15:49 Impressions: Chest X-Ray 08/20/16 09:44 IMPRESSION: NO ACUTE RADIOGRAPHIC FINDING IN THE CHEST. Facial Bones CT 08/20/16 11:25 IMPRESSION: No CT evidence of acute sinusitis. Dental caries along lower incisor teeth. Lateral left lower incisor has a periapical tooth root lucency worrisome for infection Assessment & Plan - Diagnosis (1) Abdominal pain Qualifiers: Abdominal location: right lower quadrant Qualified Code(s): R10.31 - Right lower quadrant pain (2) Infected dental carries Is this a current diagnosis for this admission?: Yes (3) SIRS due to infectious process without acute organ dysfunction Is this a current diagnosis for this admission?: Yes (4) Toxic metabolic encephalopathy Is this a current diagnosis for this admission?: Yes - Plan Summary Plan Summary: She will continue present treatment
[2016-08-26] MEDS: EZETIMIBE 10 MG TABLET PO SCH (21:37)
[2016-08-27] MEDS: NORMAL SALINE 1000 ML 1,000 ML IV PRN ×2 (01:42→17:54)
[2016-08-27] MEDS: CLINDAMYCIN 600 MG/D5W RTU 600 MG/50 ML RTUPB IV SCH ×3 (01:42→17:48)
[2016-08-27] MEDS: AMPICILLIN SODIUM/SULBACTAM NA 3 GM in NORMAL SALINE 100 ML IV SCH ×3 (03:44→17:29)
[2016-08-27] MEDS: LANSOPRAZOLE 30 MG TAB.RAP.DR PO SCH (06:33)
[2016-08-27] MEDS: METFORMIN HCL 500 MG TABLET PO SCH ×2 (08:43→17:55)
[2016-08-27 10:08] LABS: ABSOLUTE BASOPHILS # (AUTO) 0.1 10^3/uL (0.0-0.2); ABSOLUTE EOSINOPHILS # (AUTO) 0.6 10^3/uL (0.0-0.6); ABSOLUTE LYMPHOCYTES (AUTO) 1.8 10^3/uL (0.5-4.7); ABSOLUTE MONOCYTES (AUTO) 0.9 10^3/uL (0.1-1.4); ABSOLUTE NEUT (AUTO) 10.3 10^3/uL (1.7-8.2); BASOPHILS % (AUTO) 0.7 % (0-2); EOSINOPHILS % (AUTO) 4.1 % (0-6); HEMATOCRIT 30.2 % (36.0-47.0); HEMOGLOBIN 8.9 g/dL (12.0-15.5); HGB HCT DIFFERENCE -3.5; LYMPHOCYTES % (AUTO) 13.1 % (13-45); MEAN CORPUSCULAR HEMOGLOBIN 25.3 pg (27.0-33.4); MEAN CORPUSCULAR HGB CONC 29.6 g/dL (32.0-36.0); MEAN CORPUSCULAR VOLUME 85 fl (80-97); MONOCYTES % (AUTO) 6.8 % (3-13); RED BLOOD COUNT 3.54 10^6/uL (3.72-5.28); SEGMENTED NEUTROPHILS % (AUTO) 75.3 % (42-78); WHITE BLOOD COUNT 13.7 10^3/uL (4.0-10.5)
[2016-08-27] MEDS: HUM INSULIN NPH/REG INSULIN HM 100 UNIT/1 ML 3 ML SUBCUT SCH ×2 (10:27→17:51)
[2016-08-27] MEDS: ASPIRIN 81 MG TABLET, CHEWABLE PO SCH (10:29)
[2016-08-27] MEDS: LOSARTAN POTASSIUM 50 MG TABLET PO SCH (10:29)
[2016-08-27] MEDS: ENOXAPARIN SODIUM INJ 40 MG/0.4 ML DISP.SYRIN SUBCUT SCH (10:30)
[2016-08-27 10:33] LABS: ANION GAP 9 (5-19); BLOOD UREA NITROGEN 8 mg/dL (7-20); CALCIUM 10.1 mg/dL (8.4-10.2); CARBON DIOXIDE 28 mmol/L (22-30); CHLORIDE 106 mmol/L (98-107); GLUCOSE 157 mg/dL (75-110); POTASSIUM 4.3 mmol/L (3.6-5.0); SODIUM 143.2 mmol/L (137-145)
[2016-08-27] MEDS: NYSTATIN OINTMENT 15 GM TUBE TP SCH ×2 (10:36→17:53)
--- NOTE | 2016-08-27 18:15 | PDOC PROGRESS REPORT ---
Subjective Progress Note for:: 08/27/16 Subjective:: Patient reported issues with diarrhea and refusing Metformin administration. No abdominal pain, nausea or vomiting. No fever or chills. She is currently on IV Unasyn and Cleocin coverage. No chest pain or difficulty with breathing. Her accucheck continue to show improvement. Physical Exam Vital Signs: Temp Pulse Resp BP Pulse Ox 99.2 F 87 19 178/84 H 98 08/27/16 15:20 08/27/16 15:20 08/27/16 15:20 08/27/16 15:20 08/27/16 15:20 Intake & Output 08/26/16 08/27/16 08/28/16 06:59 06:59 06:59 Intake Total 3880 3481 118 Balance 3880 3481 118 Weight 107.4 kg 109 kg Physical Exam: General appearance: PRESENT: no acute distress, cooperative, obese Head exam: PRESENT: atraumatic, normocephalic Eye exam: PRESENT: conjunctiva pink, EOMI, PERRLA. ABSENT: scleral icterus Mouth exam: PRESENT: moist, other - poor dentition with dental caries and infection Teeth exam: PRESENT: dental caries, no significant dental tenderness to palpation, poor dentition Respiratory exam: PRESENT: clear to auscultation [place] Cardiovascular exam: PRESENT: RRR. ABSENT: diastolic murmur, rubs, systolic murmur GI/Abdominal exam: PRESENT: normal bowel sounds, soft. ABSENT: distended, guarding, mass, organomegaly, rebound, tenderness Extremities exam: ABSENT: pedal edema Musculoskeletal exam: PRESENT: deformity - related to multiple joints involvement with arthritis Neurological exam: PRESENT: alert, awake, oriented to person, oriented to place , oriented to time, oriented to situation, CN II-XII grossly intact. ABSENT: motor sensory deficit Psychiatric exam: PRESENT: appropriate affect, normal mood. ABSENT: homicidal ideation, suicidal ideation Skin exam: PRESENT: dry, intact, warm. ABSENT: cyanosis, rash Results Laboratory Results: 08/27/16 09:55 08/27/16 09:55 08/27/16 08/27/16 09:55 09:55 WBC 13.7 H RBC 3.54 L Hgb 8.9 L Hct 30.2 L MCV 85 MCH 25.3 L MCHC 29.6 L RDW 18.0 H Plt Count 325 Seg Neutrophils % 75.3 Lymphocytes % 13.1 Monocytes % 6.8 Eosinophils % 4.1 Basophils % 0.7 Absolute Neutrophils 10.3 H Absolute Lymphocytes 1.8 Absolute Monocytes 0.9 Absolute Eosinophils 0.6 Absolute Basophils 0.1 Sodium 143.2 Potassium 4.3 Chloride 106 Carbon Dioxide 28 Anion Gap 9 BUN 8 Creatinine 0.90 Est GFR ( Amer) > 60 Est GFR (Non-Af Amer) > 60 Glucose 157 H Calcium 10.1 Impressions: Chest X-Ray 08/20/16 09:44 IMPRESSION: NO ACUTE RADIOGRAPHIC FINDING IN THE CHEST. Facial Bones CT 08/20/16 11:25 IMPRESSION: No CT evidence of acute sinusitis. Dental caries along lower incisor teeth. 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 Qualified Code(s): E11.8 - Type 2 diabetes mellitus with unspecified complications; E11.65 - Type 2 diabetes mellitus with hyperglycemia Is this a current diagnosis for this admission?: Yes (6) BMI 38.0-38.9,adult Is this a current diagnosis for this admission?: Yes - Time Time Spent with patient: 25-34 minutes Medications reviewed and adjusted accordingly: Yes Anticipated discharge: Home with Homehealth Within: Other - Inpatient Certification Based on my medical assessment, after consideration of the patient's comorbidities, presenting symptoms, or acuity I expect that the services needed warrant INPATIENT care.: Yes I certify that my determination is in accordance with my understanding of Medicare's requirements for reasonable and necessary INPATIENT services [42 CFR 412.3e].: Yes Medical Necessity: Need Close Monitoring Due to Risk of Patient Decompensation, Need For IV Fluids, Need For Continuous Telemetry Monitoring, Need for IV Antibiotics, Risk of Complication if Not Cared For in Hospital Post Hospital Care: D/C Editor Managing Director Documentation - Plan Summary Plan Summary: Continue IV [place] and Unsayn coverage with persistent elevated leukocytosis. Obtain stool C. difficile toxin titer for further evaluation of her diarrhea. Repeat CBC with diff in AM. Encourage acceptance of her metformin when due for diabetes management.
[2016-08-27] MEDS: EZETIMIBE 10 MG TABLET PO SCH (22:05)
[2016-08-27] MEDS ORDERED: GUAIFENESIN SYRP 200 MG/10 ML UDC PO PRN (23:29)
[2016-08-27] MEDS: ACETAMINOPHEN 325 MG TABLET PO PRN (23:37)
[2016-08-28] MEDS: CLINDAMYCIN 600 MG/D5W RTU 600 MG/50 ML RTUPB IV SCH ×3 (01:04→17:47)
[2016-08-28] MEDS: LANSOPRAZOLE 30 MG TAB.RAP.DR PO SCH (05:04)
[2016-08-28] MEDS: NORMAL SALINE 1000 ML 1,000 ML IV PRN ×2 (05:20→16:04)
[2016-08-28 06:06] LABS: ABSOLUTE BASOPHILS # (AUTO) 0.1 10^3/uL (0.0-0.2); ABSOLUTE EOSINOPHILS # (AUTO) 0.4 10^3/uL (0.0-0.6); ABSOLUTE LYMPHOCYTES (AUTO) 1.9 10^3/uL (0.5-4.7); ABSOLUTE MONOCYTES (AUTO) 1.9 10^3/uL (0.1-1.4); ABSOLUTE NEUT (AUTO) 12.7 10^3/uL (1.7-8.2); BASOPHILS % (AUTO) 0.4 % (0-2); EOSINOPHILS % (AUTO) 2.3 % (0-6); HEMATOCRIT 30.8 % (36.0-47.0); HEMOGLOBIN 9.1 g/dL (12.0-15.5); HGB HCT DIFFERENCE -3.5; LYMPHOCYTES % (AUTO) 11.1 % (13-45); MEAN CORPUSCULAR HEMOGLOBIN 25.1 pg (27.0-33.4); MEAN CORPUSCULAR HGB CONC 29.5 g/dL (32.0-36.0); MEAN CORPUSCULAR VOLUME 85 fl (80-97); MONOCYTES % (AUTO) 11.1 % (3-13); RED BLOOD COUNT 3.62 10^6/uL (3.72-5.28); SEGMENTED NEUTROPHILS % (AUTO) 75.1 % (42-78); WHITE BLOOD COUNT 16.8 10^3/uL (4.0-10.5)
[2016-08-28 06:29] LABS: ANION GAP 10 (5-19); BLOOD UREA NITROGEN 8 mg/dL (7-20); CARBON DIOXIDE 28 mmol/L (22-30); CHLORIDE 105 mmol/L (98-107); CREATININE RESULT 0.73 mg/dL (0.52-1.25); GLUCOSE 132 mg/dL (75-110); POTASSIUM 4.2 mmol/L (3.6-5.0); SODIUM 142.8 mmol/L (137-145)
[2016-08-28] MEDS: HUM INSULIN NPH/REG INSULIN HM 100 UNIT/1 ML 3 ML SUBCUT SCH ×2 (08:23→17:47)
[2016-08-28] MEDS: METFORMIN HCL 500 MG TABLET PO SCH ×2 (08:23→15:58)
[2016-08-28] MEDS: ACETAMINOPHEN 325 MG TABLET PO PRN (08:27)
[2016-08-28] MEDS: ENOXAPARIN SODIUM INJ 40 MG/0.4 ML DISP.SYRIN SUBCUT SCH (09:28)
[2016-08-28] MEDS: NYSTATIN OINTMENT 15 GM TUBE TP SCH ×2 (09:28→17:47)
[2016-08-28] MEDS: ASPIRIN 81 MG TABLET, CHEWABLE PO SCH (09:28)
[2016-08-28] MEDS: METRONIDAZOLE 500 MG TABLET PO SCH ×2 (09:28→17:47)
[2016-08-28] MEDS: LOSARTAN POTASSIUM 50 MG TABLET PO SCH (09:28)
--- NOTE | 2016-08-28 13:50 | PDOC PROGRESS REPORT ---
Subjective Progress Note for:: 08/28/16 Subjective:: Patient reported improvement in her reported episodes of diarrhea. She reported some degree of upper abdominal discomfort earlier this morning. No nausea or vomiting. No fever or chills. She is currently on IV Unasyn and Cleocin coverage. No chest pain or difficulty with breathing. Her accucheck continue to show improvement. Physical Exam Vital Signs: Temp Pulse Resp BP Pulse Ox 99.2 F 88 12 141/72 H 99 08/28/16 11:19 08/28/16 11:19 08/28/16 11:19 08/28/16 11:19 08/28/16 11:19 Intake & Output 08/27/16 08/28/16 08/29/16 06:59 06:59 06:59 Intake Total 3481 3104 355 Output Total 100 800 Balance 3481 3004 -445 Weight 109 kg 107.7 kg Physical Exam: General appearance: PRESENT: no acute distress, cooperative, obese Head exam: PRESENT: atraumatic, normocephalic Eye exam: PRESENT: conjunctiva pink, EOMI, PERRLA. ABSENT: scleral icterus Mouth exam: PRESENT: moist, other - poor dentition with dental caries and infection Teeth exam: PRESENT: dental caries, no significant dental tenderness to palpation, poor dentition Respiratory exam: PRESENT: clear to auscultation [place] Cardiovascular exam: PRESENT: RRR. ABSENT: diastolic murmur, rubs, systolic murmur GI/Abdominal exam: PRESENT: normal bowel sounds, soft. ABSENT: distended, guarding, mass, organomegaly, rebound, tenderness Extremities exam: ABSENT: pedal edema Musculoskeletal exam: PRESENT: deformity - related to multiple joints involvement with arthritis Neurological exam: PRESENT: alert, awake, oriented to person, oriented to place , oriented to time, oriented to situation, CN II-XII grossly intact. ABSENT: motor sensory deficit Psychiatric exam: PRESENT: appropriate affect, normal mood. ABSENT: homicidal ideation, suicidal ideation Skin exam: PRESENT: dry, intact, warm. ABSENT: cyanosis, rash Results Laboratory Results: 08/28/16 05:23 08/28/16 05:23 08/28/16 08/28/16 05:23 05:23 WBC 16.8 H RBC 3.62 L Hgb 9.1 L Hct 30.8 L MCV 85 MCH 25.1 L MCHC 29.5 L RDW 18.0 H Plt Count 339 Seg Neutrophils % 75.1 Lymphocytes % 11.1 L Monocytes % 11.1 Eosinophils % 2.3 Basophils % 0.4 Absolute Neutrophils 12.7 H Absolute Lymphocytes 1.9 Absolute Monocytes 1.9 H Absolute Eosinophils 0.4 Absolute Basophils 0.1 Sodium 142.8 Potassium 4.2 Chloride 105 Carbon Dioxide 28 Anion Gap 10 BUN 8 Creatinine 0.73 Est GFR ( Amer) > 60 Est GFR (Non-Af Amer) > 60 Glucose 132 H Calcium 10.0 Impressions: Chest X-Ray 08/20/16 09:44 IMPRESSION: NO ACUTE RADIOGRAPHIC FINDING IN THE CHEST. Facial Bones CT 08/20/16 11:25 IMPRESSION: No CT evidence of acute sinusitis. Dental caries along lower incisor teeth. Lateral left lower incisor has a periapical tooth root lucency worrisome for infection Assessment & Plan - Diagnosis (1) SIRS due to infectious process without acute organ dysfunction Is this a current diagnosis for this admission?: Yes (2) Probable sepsis Is this a current diagnosis for this admission?: YesPlan: Continue current antibiotic coverage with IV Unasyn and Cleocin coverage. Source of her rebound leukocytosis remain unclear at this time. I will obtain stool C. difficile toxin induced diarrhea. Follow up on blood culture findings. (3) Infected dental carries Is this a current diagnosis for this admission?: Yes (4) Toxic metabolic encephalopathy Is this a current diagnosis for this admission?: Yes (5) Uncontrolled type 2 diabetes mellitus with complication Qualifiers: Diabetes mellitus color checker insulin use: with alf use Qualified Code(s): E11.8 - Type 2 diabetes mellitus with unspecified complications; E11.65 - Type 2 diabetes mellitus with hyperglycemia Is this a current diagnosis for this admission?: Yes (6) BMI 38.0-38.9,adult Is this a current diagnosis for this admission?: Yes - Time Time Spent with patient: 25-34 minutes Medications reviewed and adjusted accordingly: Yes Anticipated discharge: SNF Within: Other - Inpatient Certification Based on my medical assessment, after consideration of the patient's comorbidities, presenting symptoms, or acuity I expect that the services needed warrant INPATIENT care.: Yes I certify that my determination is in accordance with my understanding of Medicare's requirements for reasonable and necessary INPATIENT services [42 CFR 412.3e].: Yes Medical Necessity: Need Close Monitoring Due to Risk of Patient Decompensation, Need For IV Fluids, Need For Continuous Telemetry Monitoring, Risk of Complication if Not Cared For in Hospital Post Hospital Care: D/C Computer Systems Design Analyst Documentation - Plan Summary Plan Summary: Start on Metronidazole 500 mg p.o [id number]. Follow up on request for stool C. diificile toxin titile. Repeat CBC with differetial count in am,
[2016-08-28] MEDS: EZETIMIBE 10 MG TABLET PO SCH (21:53)
[2016-08-29] MEDS: CLINDAMYCIN 600 MG/D5W RTU 600 MG/50 ML RTUPB IV SCH ×3 (02:28→17:39)
[2016-08-29] MEDS: METRONIDAZOLE 500 MG TABLET PO SCH ×3 (02:29→17:39)
[2016-08-29] MEDS: NORMAL SALINE 1000 ML 1,000 ML IV PRN (02:29)
[2016-08-29] MEDS: ACETAMINOPHEN 325 MG TABLET PO PRN ×2 (02:32→13:47)
[2016-08-29] MEDS: LANSOPRAZOLE 30 MG TAB.RAP.DR PO SCH (05:32)
[2016-08-29] MEDS: METFORMIN HCL 500 MG TABLET PO SCH ×2 (08:03→15:53)
[2016-08-29] MEDS: HUM INSULIN NPH/REG INSULIN HM 100 UNIT/1 ML 3 ML SUBCUT SCH (08:38)
[2016-08-29] MEDS: LOSARTAN POTASSIUM 50 MG TABLET PO SCH (09:25)
[2016-08-29] MEDS: ASPIRIN 81 MG TABLET, CHEWABLE PO SCH (09:25)
[2016-08-29] MEDS: NYSTATIN OINTMENT 15 GM TUBE TP SCH ×2 (09:26→17:40)
[2016-08-29] MEDS: ENOXAPARIN SODIUM INJ 40 MG/0.4 ML DISP.SYRIN SUBCUT SCH (09:26)
[2016-08-29] MEDS ORDERED: HUM INSULIN NPH/REG INSULIN HM 100 UNIT/1 ML 3 ML SUBCUT SCH (19:06)
--- NOTE | 2016-08-29 20:25 | PDOC PROGRESS REPORT ---
Subjective Progress Note for:: 08/29/16 Subjective:: Patient continue to experience morning hypoglycemia on current management for her diabetes mellitus. She claimed continue episodes of diarrhea that she related to Metformin usage but she has been on Metformin prior to admission. No nausea or vomiting. No fever or chills. She is currently on IV Cleocin and oral Metronidazole coverage for concern of antibiotic associated diarrhea. No chest pain or difficulty with breathing. Physical Exam Vital Signs: Temp Pulse Resp BP Pulse Ox 98.5 F 91 18 158/73 H 96 08/29/16 15:24 08/29/16 19:00 08/29/16 15:24 08/29/16 15:24 08/29/16 15:24 Intake & Output 08/28/16 08/29/16 08/30/16 06:59 06:59 06:59 Intake Total 3104 3770 1700 Output Total 100 900 800 Balance 3004 2870 900 Weight 107.7 kg 108.8 kg Physical Exam: General appearance: PRESENT: no acute distress, cooperative, obese Head exam: PRESENT: atraumatic, normocephalic Eye exam: PRESENT: conjunctiva pink, EOMI, PERRLA. ABSENT: scleral icterus Mouth exam: PRESENT: moist, other - poor dentition with dental caries and infection Teeth exam: PRESENT: dental caries, no significant dental tenderness to palpation, poor dentition Respiratory exam: PRESENT: clear to auscultation [place] Cardiovascular exam: PRESENT: RRR. ABSENT: diastolic murmur, rubs, systolic murmur GI/Abdominal exam: PRESENT: normal bowel sounds, soft. ABSENT: distended, guarding, mass, organomegaly, rebound, tenderness Extremities exam: ABSENT: pedal edema Musculoskeletal exam: PRESENT: deformity - related to multiple joints involvement with arthritis Neurological exam: PRESENT: alert, awake, oriented to person, oriented to place , oriented to time, oriented to situation, CN II-XII grossly intact. ABSENT: motor sensory deficit Psychiatric exam: PRESENT: appropriate affect, normal mood. ABSENT: homicidal ideation, suicidal ideation Skin exam: PRESENT: dry, intact, warm. ABSENT: cyanosis, rash Results Laboratory Results: 08/28/16 05:23 08/28/16 05:23 Impressions: Chest X-Ray 08/20/16 09:44 IMPRESSION: NO ACUTE RADIOGRAPHIC FINDING IN THE CHEST. Facial Bones CT 08/20/16 11:25 IMPRESSION: No CT evidence of acute sinusitis. Dental caries along lower incisor teeth. Lateral left lower incisor has a periapical tooth root lucency worrisome for infection Assessment & Plan - Diagnosis (1) SIRS due to infectious process without acute organ dysfunction Is this a current diagnosis for this admission?: Yes (2) Probable sepsis Is this a current diagnosis for this admission?: Yes (3) Infected dental carries Is this a current diagnosis for this admission?: Yes (4) Toxic metabolic encephalopathy Is this a current diagnosis for this admission?: Yes (5) Uncontrolled type 2 diabetes mellitus with complication Qualifiers: Diabetes mellitus termite technician insulin use: with [facility] use Qualified Code(s): E11.8 - Type 2 diabetes mellitus with unspecified complications; E11.65 - Type 2 diabetes mellitus with hyperglycemia Is this a current diagnosis for this admission?: Yes (6) BMI 38.0-38.9,adult Is this a current diagnosis for this admission?: Yes - Time Time Spent with patient: 25-34 minutes Medications reviewed and adjusted accordingly: Yes Anticipated discharge: Home with Homehealth Within: Other - Inpatient Certification Based on my medical assessment, after consideration of the patient's comorbidities, presenting symptoms, or acuity I expect that the services needed warrant INPATIENT care.: Yes I certify that my determination is in accordance with my understanding of Medicare's requirements for reasonable and necessary INPATIENT services [42 CFR 412.3e].: Yes Medical Necessity: Need Close Monitoring Due to Risk of Patient Decompensation, Need For IV Fluids, Need For Continuous Telemetry Monitoring, Need for IV Antibiotics, Risk of Complication if Not Cared For in Hospital Post Hospital Care: D/C Solar Applications Development Engineer Documentation - Plan Summary Plan Summary: Decrease 70/30 insulin to 50 units at PM and maintain on 90 units in AM. Continue all other current diabetes mellitus medication management. D/C IV Cleocin and IV fluid therapy. Maintain on oral Metronidazole. Obtain CBC with diff, CMP, and repeat C.difficile toxin titer evaluation due to high suspicion for C. difficile colitis.
[2016-08-29] MEDS: EZETIMIBE 10 MG TABLET PO SCH (22:11)
[2016-08-30] MEDS: METRONIDAZOLE 500 MG TABLET PO SCH ×3 (01:21→17:15)
[2016-08-30] MEDS: LANSOPRAZOLE 30 MG TAB.RAP.DR PO SCH (05:41)
[2016-08-30 07:11] LABS: ABSOLUTE BASOPHILS # (AUTO) 0.1 10^3/uL (0.0-0.2); ABSOLUTE EOSINOPHILS # (AUTO) 0.6 10^3/uL (0.0-0.6); ABSOLUTE LYMPHOCYTES (AUTO) 2.4 10^3/uL (0.5-4.7); ABSOLUTE MONOCYTES (AUTO) 1.5 10^3/uL (0.1-1.4); ABSOLUTE NEUT (AUTO) 10.5 10^3/uL (1.7-8.2); BASOPHILS % (AUTO) 0.6 % (0-2); EOSINOPHILS % (AUTO) 3.9 % (0-6); HEMATOCRIT 28.4 % (36.0-47.0); HEMOGLOBIN 8.7 g/dL (12.0-15.5); HGB HCT DIFFERENCE -2.3; LYMPHOCYTES % (AUTO) 16.2 % (13-45); MEAN CORPUSCULAR HEMOGLOBIN 25.5 pg (27.0-33.4); MEAN CORPUSCULAR HGB CONC 30.8 g/dL (32.0-36.0); MEAN CORPUSCULAR VOLUME 83 fl (80-97); MONOCYTES % (AUTO) 9.7 % (3-13); RED BLOOD COUNT 3.43 10^6/uL (3.72-5.28); RED CELL DISTRIBUTION WIDTH 18.4 % (11.5-14.0); SEGMENTED NEUTROPHILS % (AUTO) 69.6 % (42-78)
[2016-08-30 07:21] LABS: ALANINE AMINOTRANSFERASE 47 U/L (9-52); ALBUMIN 3.4 g/dL (3.5-5.0); ALKALINE PHOSPHATASE 114 U/L (38-126); ANION GAP 11 (5-19); ASPARTATE AMINO TRANSFERASE 28 U/L (14-36); BILIRUBIN,DIRECT 0.3 mg/dL (0.0-0.4); BILIRUBIN,TOTAL 1.1 mg/dL (0.2-1.3); BLOOD UREA NITROGEN 6 mg/dL (7-20); CALCIUM 10.1 mg/dL (8.4-10.2); CARBON DIOXIDE 27 mmol/L (22-30); CHLORIDE 106 mmol/L (98-107); CREATININE RESULT 0.75 mg/dL (0.52-1.25); GLUCOSE 103 mg/dL (75-110); POTASSIUM 3.9 mmol/L (3.6-5.0); SODIUM 143.8 mmol/L (137-145); TOTAL PROTEIN 7.2 g/dL (6.3-8.2)
[2016-08-30] MEDS: HUM INSULIN NPH/REG INSULIN HM 100 UNIT/1 ML 3 ML SUBCUT SCH (08:28)
[2016-08-30] MEDS: METFORMIN HCL 500 MG TABLET PO SCH ×2 (08:28→16:16)
[2016-08-30] MEDS: ENOXAPARIN SODIUM INJ 40 MG/0.4 ML DISP.SYRIN SUBCUT SCH (09:32)
[2016-08-30] MEDS: LOSARTAN POTASSIUM 50 MG TABLET PO SCH (09:33)
[2016-08-30] MEDS: ASPIRIN 81 MG TABLET, CHEWABLE PO SCH (09:33)
[2016-08-30] MEDS: NYSTATIN OINTMENT 15 GM TUBE TP SCH ×2 (09:33→17:15)
[2016-08-30] MEDS: ACETAMINOPHEN 325 MG TABLET PO PRN (16:29)
--- NOTE | 2016-08-30 19:40 | PDOC PROGRESS REPORT ---
Subjective Progress Note for:: 08/30/16 Subjective:: Patient denied any diarrhea. No abdominal pain , nausea or vomiting. She remain on oral Metronidazole therapy. Her accuchek remain fairly satisfactory. No chest pain or difficulty with breathing. Physical Exam Vital Signs: Temp Pulse Resp BP Pulse Ox 98.3 F 90 18 167/79 H 98 08/30/16 15:14 08/30/16 15:14 08/30/16 15:14 08/30/16 15:14 08/30/16 15:14 Intake & Output 08/29/16 08/30/16 08/31/16 06:59 06:59 06:59 Intake Total 3770 2185 502 Output Total 900 1800 Balance 2870 385 502 Weight 108.8 kg 108 kg Physical Exam: General appearance: PRESENT: no acute distress, cooperative, obese Head exam: PRESENT: atraumatic, normocephalic Eye exam: PRESENT: conjunctiva pink, EOMI, PERRLA. ABSENT: scleral icterus Mouth exam: PRESENT: moist, other - poor dentition with dental caries and infection Teeth exam: PRESENT: dental caries, no significant dental tenderness to palpation, poor dentition Respiratory exam: PRESENT: clear to auscultation [place] Cardiovascular exam: PRESENT: RRR. ABSENT: diastolic murmur, rubs, systolic murmur GI/Abdominal exam: PRESENT: normal bowel sounds, soft. ABSENT: distended, guarding, mass, organomegaly, rebound, tenderness Extremities exam: ABSENT: pedal edema Musculoskeletal exam: PRESENT: deformity - related to multiple joints involvement with arthritis Neurological exam: PRESENT: alert, awake, oriented to person, oriented to place , oriented to time, oriented to situation, CN II-XII grossly intact. ABSENT: motor sensory deficit Psychiatric exam: PRESENT: appropriate affect, normal mood. ABSENT: homicidal ideation, suicidal ideation Skin exam: PRESENT: dry, intact, warm. ABSENT: cyanosis, rash Results Laboratory Results: 08/30/16 06:51 08/30/16 06:51 08/30/16 08/30/16 06:51 06:51 WBC 15.0 H RBC 3.43 L Hgb 8.7 L Hct 28.4 L MCV 83 MCH 25.5 L MCHC 30.8 L RDW 18.4 H Plt Count 385 Seg Neutrophils % 69.6 Lymphocytes % 16.2 Monocytes % 9.7 Eosinophils % 3.9 Basophils % 0.6 Absolute Neutrophils 10.5 H Absolute Lymphocytes 2.4 Absolute Monocytes 1.5 H Absolute Eosinophils 0.6 Absolute Basophils 0.1 Sodium 143.8 Potassium 3.9 Chloride 106 Carbon Dioxide 27 Anion Gap 11 BUN 6 L Creatinine 0.75 Est GFR ( Amer) > 60 Est GFR (Non-Af Amer) > 60 Glucose 103 Calcium 10.1 Total Bilirubin 1.1 AST 28 ALT 47 Alkaline Phosphatase 114 Total Protein 7.2 Albumin 3.4 L Impressions: Chest X-Ray 08/20/16 09:44 IMPRESSION: NO ACUTE RADIOGRAPHIC FINDING IN THE CHEST. Facial Bones CT 08/20/16 11:25 IMPRESSION: No CT evidence of acute sinusitis. Dental caries along lower incisor teeth. Lateral left lower incisor has a periapical tooth root lucency worrisome for infection Assessment & Plan - Diagnosis (1) SIRS due to infectious process without acute organ dysfunction Is this a current diagnosis for this admission?: Yes (2) Probable sepsis Is this a current diagnosis for this admission?: Yes (3) Infected dental carries Is this a current diagnosis for this admission?: Yes (4) Toxic metabolic encephalopathy Is this a current diagnosis for this admission?: Yes (5) Uncontrolled type 2 diabetes mellitus with complication Qualifiers: Diabetes mellitus buttermaker helper insulin use: with [facility] use Qualified Code(s): E11.8 - Type 2 diabetes mellitus with unspecified complications; E11.65 - Type 2 diabetes mellitus with hyperglycemia Is this a current diagnosis for this admission?: Yes (6) BMI 38.0-38.9,adult Is this a current diagnosis for this admission?: Yes - Time Time Spent with patient: 25-34 minutes Medications reviewed and adjusted accordingly: Yes Anticipated discharge: Home Within: Other - Inpatient Certification Medical Necessity: Need Close Monitoring Due to Risk of Patient Decompensation, Need For Continuous Telemetry Monitoring, Risk of Complication if Not Cared For in Hospital Post Hospital Care: D/C Material Flow Analyst Documentation - Plan Summary Plan Summary: Continue current medication management. Repeat CBC with diff in AM if leukocytosis show downward trend I will consider discharge home on oral Metronidazole therapy.
[2016-08-30] MEDS: EZETIMIBE 10 MG TABLET PO SCH (21:09)
[2016-08-31] MEDS: METRONIDAZOLE 500 MG TABLET PO SCH ×2 (01:24→09:33)
[2016-08-31] MEDS: LANSOPRAZOLE 30 MG TAB.RAP.DR PO SCH (05:30)
[2016-08-31 05:43] LABS: ABSOLUTE BASOPHILS # (AUTO) 0.1 10^3/uL (0.0-0.2); ABSOLUTE EOSINOPHILS # (AUTO) 0.6 10^3/uL (0.0-0.6); ABSOLUTE LYMPHOCYTES (AUTO) 3.1 10^3/uL (0.5-4.7); ABSOLUTE MONOCYTES (AUTO) 1.2 10^3/uL (0.1-1.4); BASOPHILS % (AUTO) 0.6 % (0-2); EOSINOPHILS % (AUTO) 4.1 % (0-6); HEMOGLOBIN 8.9 g/dL (12.0-15.5); HGB HCT DIFFERENCE -3.3; LYMPHOCYTES % (AUTO) 20.6 % (13-45); MEAN CORPUSCULAR HEMOGLOBIN 24.7 pg (27.0-33.4); MEAN CORPUSCULAR HGB CONC 29.7 g/dL (32.0-36.0); MEAN CORPUSCULAR VOLUME 83 fl (80-97); MONOCYTES % (AUTO) 8.3 % (3-13); RED BLOOD COUNT 3.61 10^6/uL (3.72-5.28); RED CELL DISTRIBUTION WIDTH 18.3 % (11.5-14.0); SEGMENTED NEUTROPHILS % (AUTO) 66.4 % (42-78); WHITE BLOOD COUNT 15.1 10^3/uL (4.0-10.5)
[2016-08-31] MEDS: HUM INSULIN NPH/REG INSULIN HM 100 UNIT/1 ML 3 ML SUBCUT SCH (07:45)
[2016-08-31] MEDS: METFORMIN HCL 500 MG TABLET PO SCH (07:45)
--- NOTE | 2016-08-31 08:31 | PDOC DISCHARGE SUMMARY ---
General - Admit/Disc Date/PCP Admission Date/Primary Care Provider: 08/20/16 19:47 DAVIDRICHARD NORTON Discharge Date: 08/31/16 - Discharge Diagnosis (1) SIRS due to infectious process without acute organ dysfunction Is this a current diagnosis for this admission?: Yes (2) Probable sepsis Is this a current diagnosis for this admission?: Yes (3) Infected dental carries Is this a current diagnosis for this admission?: Yes (4) Toxic metabolic encephalopathy Is this a current diagnosis for this admission?: Yes (5) Uncontrolled type 2 diabetes mellitus with complication Is this a current diagnosis for this admission?: Yes (6) BMI 38.0-38.9,adult Is this a current diagnosis for this admission?: Yes - Additional Information Discharge Diet: Cardiac, Diabetic Discharge Activity: Activity As Tolerated Home Medications: Acetaminophen [Tylenol Extra Strength 500 mg Tablet] 1,000 mg PO Q8HP PRN Aspirin [Aspirin 81 mg Chewable Tablet] 81 mg PO DAILY 08/21/16 Ezetimibe [Zetia 10 mg Tablet] 10 mg PO QHS 08/21/16 Hum Insulin NPH/Reg Insulin Hm [Novolin 70-30 100 Unit/ml Vial] 70 unit SQ QPM 08/21/16 Hum Insulin NPH/Reg Insulin Hm [Novolin 70-30 100 Unit/ml Vial] 90 unit SQ QAM 08/21/16 Irbesartan [Avapro] 300 mg PO DAILY 08/21/16 Metformin HCl [Glucophage] 500 mg PO BIDACBS 08/21/16 Tramadol HCl [Ultram 50 mg Tablet] 50 mg PO Q8HP PRN 08/21/16 Cephalexin Monohydrate [Keflex 500 mg Capsule] 500 mg PO BID #20 capsule Nystatin [Mycostatin Ointment 15 gm] 1 applic TP BID #45 gm 08/31/16 History of Present Illness History of Present Illness: TRELL ISLAS is a 70 year old female known to my practice who was brought to he ED earlier today by family with above complaints. Family reported that patient demonstrated confusion and disorientation to time prior to arrival in the ED. No reported associated chest pain, difficulty with breathing nausea, vomiting, diarrhea or abdominal pain. Her initial evaluation in the ED was remarkable to elevated temperature at 102.4F, leukocytosis, abnormal urinalysis and facial CT scan suggestive of dental periapical infection. Patient demonstrated elevated blood glucose level. Her morbidities include DM type 2, HTN, and HLD. She was advised admission for further evaluation and management. Hospital Course Hospital Course: Patient did respond to initial therapy with IV antibiotic and IV fluid hydration with resolution of her fever and improvement in her mental status alertness. Her hyperglycemia did improved. She was seen in consultation by Dr Marvin Griggs, dental surgeon, with recommendation to follow up in office upon discharge. Patient did expressed concern about financial limitations. There was concern for possible antibiotic associated diarrhea with initiated coverage of metronidazole but stool study was reported negative. Due to persistent low grade leukocytosis she will be discharged home on Keflex and she will be referred to Dr Griggs upon discharge. Follow up with me in office as instructed upon discharge. Physical Exam Vital Signs: Temp Pulse Resp BP Pulse Ox 98.8 F 92 19 164/86 H 96 08/31/16 07:52 08/31/16 07:52 08/31/16 07:52 08/31/16 07:52 08/31/16 07:52 Intake & Output 08/30/16 08/31/16 09/01/16 06:59 06:59 06:59 Intake Total 2185 507 Output Total 1800 Balance 385 507 Weight 107 kg Physical Exam: General appearance: PRESENT: no acute distress, cooperative, obese Head exam: PRESENT: atraumatic, normocephalic Eye exam: PRESENT: conjunctiva pink, EOMI, PERRLA. ABSENT: scleral icterus Mouth exam: PRESENT: moist, other - poor dentition with dental caries and infection Teeth exam: PRESENT: dental caries, no significant dental tenderness to palpation, poor dentition Respiratory exam: PRESENT: clear to auscultation [place] Cardiovascular exam: PRESENT: RRR. ABSENT: diastolic murmur, rubs, systolic murmur GI/Abdominal exam: PRESENT: normal bowel sounds, soft. ABSENT: distended, guarding, mass, organomegaly, rebound, tenderness Extremities exam: ABSENT: pedal edema Musculoskeletal exam: PRESENT: deformity - related to multiple joints involvement with arthritis Neurological exam: PRESENT: alert, awake, oriented to person, oriented to place , oriented to time, oriented to situation, CN II-XII grossly intact. ABSENT: motor sensory deficit Psychiatric exam: PRESENT: appropriate affect, normal mood. ABSENT: homicidal ideation, suicidal ideation Skin exam: PRESENT: dry, intact, warm. ABSENT: cyanosis, rash Results Laboratory Results: 08/31/16 05:17 08/30/16 06:51 08/31/16 05:17 WBC 15.1 H RBC 3.61 L Hgb 8.9 L Hct 30.0 L MCV 83 MCH 24.7 L MCHC 29.7 L RDW 18.3 H Plt Count 438 Seg Neutrophils % 66.4 Lymphocytes % 20.6 Monocytes % 8.3 Eosinophils % 4.1 Basophils % 0.6 Absolute Neutrophils 10.0 H Absolute Lymphocytes 3.1 Absolute Monocytes 1.2 Absolute Eosinophils 0.6 Absolute Basophils 0.1 Impressions: Chest X-Ray 08/20/16 09:44 IMPRESSION: NO ACUTE RADIOGRAPHIC FINDING IN THE CHEST. Facial Bones CT 08/20/16 11:25 IMPRESSION: No CT evidence of acute sinusitis. Dental caries along lower incisor teeth. Lateral left lower incisor has a periapical tooth root lucency worrisome for infection Qualifiers PATEINT BEING DISCHARGED WITH ANY OF THE FOLLOWING DIAGNOSIS?: No Plan Discharge Plan: Discharge home today. Follow up in office as instructed upon discharge. I emphasized follow up with Dr Griggs for further input into her dental periapical abscess or infection. Time Spent: Less than 30 Minutes
[2016-08-31 09:18] VITALS: BP 151/69
[2016-08-31] MEDS: ASPIRIN 81 MG TABLET, CHEWABLE PO SCH (09:33)
[2016-08-31] MEDS: LOSARTAN POTASSIUM 50 MG TABLET PO SCH (09:35)
[2016-08-31] MEDS: NYSTATIN OINTMENT 15 GM TUBE TP SCH (09:36)
[2016-08-31] MEDS: ENOXAPARIN SODIUM INJ 40 MG/0.4 ML DISP.SYRIN SUBCUT SCH (09:36)
== END 2016-08-31 10:00 | disposition home health service (06) | DRG 871 ==
LOC: ER 09:42 → UNDOADMIN 11:52 → EH 11:52 → 3S 12:47 → EH 19:47 → 3S 19:47
PROVIDERS: ADMIT Internal Medicine Geriatric Medicine; ATTEND Internal Medicine Geriatric Medicine
DX: A41.9 Sepsis, unspecified organism (principal); G92 Toxic encephalopathy; K04.7 Periapical abscess without sinus; K02.9 Dental caries, unspecified; E11.65 Type 2 diabetes mellitus with hyperglycemia; E78.5 Hyperlipidemia, unspecified; I10 Essential (primary) hypertension; Z68.39 Body mass index [BMI] 39.0-39.9, adult; Z79.4 Long term (current) use of insulin; Z79.82 Long term (current) use of aspirin; Z79.899 Other long term (current) drug therapy; Z90.710 Acquired absence of both cervix and uterus
CPT/HCPCS: 36415; 36430; 70487; 71010; 80048; 80053; 81001; 82272; 82803; 82962; 83036; 83605; 85025; 85027; 85610; 85730; 86850; 86900; 86901; 86920; 87040; 87086; 87493; 93005; 93010; 96361; 96365; 99291; J0295; J0696; J1650; J1815; J1940; J3490; J7030; P9016

== ENCOUNTER 2016-09-18 12:06 | Inpatient (IN) | payer MEDICARE, BC, OTHER ==
[2016-09-18] MEDS ORDERED: NORMAL SALINE 1000 ML 1,000 ML IV ONE (12:34)
[2016-09-18] MEDS ORDERED: ACETAMINOPHEN 325 MG TABLET PO ONE (12:34)
--- NOTE | 2016-09-18 12:36 | ER Document Report ---
ED Medical Screen (RME) - General Chief Complaint: General Weakness Stated Complaint: WEAKNESS Time Seen by Provider: 09/18/16 12:34 Notes: Patient presents with fever to 100.7. She also has had weakness and decreased appetite. She denies diarrhea or vomiting. She has had nausea. She denies any cough cold or congestion. No rashes. TRAVEL OUTSIDE OF THE [place] IN LAST 30 DAYS: No - Related Data Allergies/Adverse Reactions: No Known Allergies Allergy (Verified 09/18/16 12:18) Past Medical History - Past Medical History Cardiac Medical History: Reports: Hx Hypercholesterolemia, Hx Hypertension Endocrine Medical History: Reports: Hx Diabetes Mellitus Type 2 Renal/ Medical History: Denies: Hx Peritoneal Dialysis Past Surgical History: Reports: Hx Hysterectomy - Immunizations Hx Diphtheria, Pertussis, Tetanus Vaccination: Yes Physical Exam - Vital signs Vitals: Temp Pulse BP 100.7 F H 113 H 137/68 H 09/18/16 12:14 09/18/16 12:14 09/18/16 12:14 Course - Vital Signs Vital signs: Temp Pulse Resp BP Pulse Ox 100.7 F H 113 H 137/68 H 94 09/18/16 12:14 09/18/16 12:14 09/18/16 12:14 09/18/16 12:17
[2016-09-18 13:16] LABS: ABSOLUTE BASOPHILS # (AUTO) 0.1 10^3/uL (0.0-0.2); ABSOLUTE LYMPHOCYTES (AUTO) 1.8 10^3/uL (0.5-4.7); ABSOLUTE MONOCYTES (AUTO) 2.4 10^3/uL (0.1-1.4); ABSOLUTE NEUT (AUTO) 15.3 10^3/uL (1.7-8.2); BASOPHILS % (AUTO) 0.3 % (0-2); EOSINOPHILS % (AUTO) 0.1 % (0-6); HEMATOCRIT 31.5 % (36.0-47.0); HEMOGLOBIN 9.6 g/dL (12.0-15.5); HGB HCT DIFFERENCE -2.7; MEAN CORPUSCULAR HEMOGLOBIN 25.1 pg (27.0-33.4); MEAN CORPUSCULAR HGB CONC 30.5 g/dL (32.0-36.0); MEAN CORPUSCULAR VOLUME 82 fl (80-97); MONOCYTES % (AUTO) 12.4 % (3-13); RED BLOOD COUNT 3.83 10^6/uL (3.72-5.28); RED CELL DISTRIBUTION WIDTH 19.6 % (11.5-14.0); SEGMENTED NEUTROPHILS % (AUTO) 78.2 % (42-78); WHITE BLOOD COUNT 19.6 10^3/uL (4.0-10.5)
[2016-09-18 13:17] LABS: VENOUS BLOOD BASE EXCESS 3.8 mmol/L; VENOUS BLOOD HCO3 29.5 mmol/L (20-32); VENOUS BLOOD PH 7.4 (7.30-7.42)
[2016-09-18 13:40] LABS: ALANINE AMINOTRANSFERASE 46 U/L (9-52); ALBUMIN 3.7 g/dL (3.5-5.0); ALKALINE PHOSPHATASE 150 U/L (38-126); ANION GAP 13 (5-19); ASPARTATE AMINO TRANSFERASE 52 U/L (14-36); BILIRUBIN,DIRECT 0.5 mg/dL (0.0-0.4); BILIRUBIN,TOTAL 1.5 mg/dL (0.2-1.3); BLOOD UREA NITROGEN 12 mg/dL (7-20); CALCIUM 10.6 mg/dL (8.4-10.2); CARBON DIOXIDE 27 mmol/L (22-30); CHLORIDE 99 mmol/L (98-107); CREATININE RESULT 0.94 mg/dL (0.52-1.25); GLUCOSE 300 mg/dL (75-110); POTASSIUM 4.4 mmol/L (3.6-5.0); SODIUM 139.1 mmol/L (137-145); TOTAL PROTEIN 7.8 g/dL (6.3-8.2)
[2016-09-18 13:48] LABS: APPEARANCE,URINE CLEAR; BILIRUBIN,URINE NEGATIVE (NEGATIVE); GLUCOSE, URINE 50 mg/dL (NEGATIVE); KETONES,URINE NEGATIVE (NEGATIVE); LEUKOCYTE ESTERASE,URINE NEGATIVE (NEGATIVE); NITRITE,URINE NEGATIVE (NEGATIVE); PROTEIN,URINE 100 mg/dL (NEGATIVE); URINE SPECIFIC GRAVITY 1.025; UROBILINOGEN,URINE NEGATIVE mg/dL (<2.0)
--- NOTE | 2016-09-18 14:19 | ER Document Report ---
ED General - General Chief Complaint: General Weakness Stated Complaint: WEAKNESS Time Seen by Provider: 09/18/16 12:34 Notes: Shot gentleman patient is a 70-year-old female who returns emergency department complaining of weakness. Patient is poor historian and not cooperative during history and physical exam. Upon review of medical chart, patient has been here recently for sepsis secondary to dental infection. Patient's primary care physician is Dr. Burgess. During review of systems. Patient is also admits to abdominal pain that is generalized without any associated nausea, vomiting, diarrhea or constipation. She states that this is been on and off since her previous admission. TRAVEL OUTSIDE OF THE [place] IN LAST 30 DAYS: No - Related Data Allergies/Adverse Reactions: No Known Allergies Allergy (Verified 09/18/16 12:18) Home Medications: Current Home Medications Acetaminophen [Tylenol Extra Strength 500 mg Tablet] 2 tab PO DAILYP PRN [History] Aspirin [Aspirin 81 mg Chewable Tablet] 81 mg PO DAILY 09/18/16 [History] Clindamycin HCl 75 mg PO BID 09/18/16 [History] Esomeprazole Magnesium [Nexium] 40 mg PO QAM 09/18/16 [History] Ezetimibe [Zetia 10 mg Tablet] 10 mg PO QHS 09/18/16 [History] Insulin NPH Hum/Reg Insulin Hm [Novolin 70-30 100 Unit/ml Vial] 50 unit SQ QPM 09/18/16 [History] Insulin NPH Hum/Reg Insulin Hm [Novolin 70-30 100 Unit/ml Vial] 90 unit SQ QAM 09/18/16 [History] Irbesartan 300 mg PO DAILY 09/18/16 [History] Loratadine [Claritin 10 mg Tablet] 10 mg PO DAILY 09/18/16 [History] Metformin HCl [Glucophage] 500 mg PO BIDBS 09/18/16 [History] Past Medical History - Social History Smoking Status: Unknown if Ever Smoked Family History: Reviewed & Not Pertinent Patient has suicidal ideation: No Patient has homicidal ideation: No - Past Medical History Cardiac Medical History: Reports: Hx Hypercholesterolemia, Hx Hypertension Endocrine Medical History: Reports: Hx Diabetes Mellitus Type 2 Renal/ Medical History: Denies: Hx Peritoneal Dialysis Past Surgical History: Reports: Hx Hysterectomy - Immunizations Hx Diphtheria, Pertussis, Tetanus Vaccination: Yes Review of Systems - Review of Systems Constitutional: See HPI EENT: See HPI Gastrointestinal: See HPI -: Yes All other systems reviewed and negative Physical Exam - Vital signs Vitals: Temp Pulse BP 100.7 F H 113 H 137/68 H 09/18/16 12:14 09/18/16 12:14 09/18/16 12:14 - Notes Notes: PHYSICAL EXAM GENERAL: Alert, interacts well. HEAD: Normocephalic, atraumatic. EYES: Pupils equal, round, and reactive to light. Extraocular movements intact. ENT: Oral mucosa moist, tongue midline. Uvula midline. Airway patent. No evidence of tonsillar enlargement, peritonsillar abscess, retropharyngeal abscess. Poor dentition noted throughout without any obvious signs of abscess. NECK: Full range of motion. Supple. Trachea midline. LUNGS: Clear to auscultation bilaterally, no wheezes, rales, or rhonchi. No respiratory distress. HEART: Regular rate and rhythm. No murmurs, gallops, or rubs. ABDOMEN: Soft, nondistended, right and left lower quadrant tenderness to deep palpation. no guarding, rebound, or rigidity.. Bowel sounds present in all 4 quadrants. EXTREMITIES: Moves all 4 extremities spontaneously. No edema, radial and dorsalis pedis pulses 2/4 bilaterally. No cyanosis. NEUROLOGICAL: Alert and oriented x4. Normal speech. PSYCH: Normal affect, normal mood. SKIN: Warm, dry, normal turgor. No rashes or lesions noted. Course - Re-evaluation Re-evalutation: 09/18/16 16:20 Patient is a 70-year-old female who is hemodynamically stable, no acute distress and afebrile after Tylenol. Patient has been on p.o. antibiotics for dental infection and is not tolerating outpatient treatment. Patient with a white count of 19,000 without any associated sepsis. Patient received IV fluids and IV antibiotics in the emergency department. CT of the abdomen and pelvis was done to evaluate abdominal pain and shows concern for concerns of malignancy primarily from the colon. Patient was discussed with primary care physician Dr. Burgess who agreed to admit the patient and will review CT results. Resting comfortably in bed in this agreeable with plan. - Vital Signs Vital signs: Temp Pulse Resp BP Pulse Ox 99.1 F 95 16 138/68 H 99 09/18/16 16:15 09/18/16 16:15 09/18/16 16:15 09/18/16 16:15 09/18/16 16:15 - Laboratory Result Diagrams: 09/18/16 12:50 09/18/16 12:50 Laboratory results interpreted by me: 09/18/16 09/18/16 09/18/16 12:50 12:50 13:10 WBC 19.6 H Hgb 9.6 L Hct 31.5 L MCH 25.1 L MCHC 30.5 L RDW 19.6 H Seg Neutrophils % 78.2 H Lymphocytes % 9.0 L Absolute Neutrophils 15.3 H Absolute Monocytes 2.4 H Est GFR (Non-Af Amer) 59 L Glucose 300 H POC Glucose Calcium 10.6 H Total Bilirubin 1.5 H Direct Bilirubin 0.5 H AST 52 H Alkaline Phosphatase 150 H Urine Protein 100 H Urine Glucose (UA) 50 H Urine Ascorbic Acid 20 H 09/18/16 13:38 WBC Hgb Hct MCH MCHC RDW Seg Neutrophils % Lymphocytes % Absolute Neutrophils Absolute Monocytes Est GFR (Non-Af Amer) Glucose POC Glucose 297 H Calcium Total Bilirubin Direct Bilirubin AST Alkaline Phosphatase Urine Protein Urine Glucose (UA) Urine Ascorbic Acid - Diagnostic Test Radiology reviewed: Image reviewed, Reports reviewed - EKG Interpretation by Me EKG shows normal: Sinus rhythm Rate: Normal Rhythm: NSR When compared to previous EKG there are: No significant change Discharge - Discharge Clinical Impression: Dental abscess Abdominal pain Qualifiers: Abdominal location: right lower quadrant Qualified Code(s): R10.31 - Right lower quadrant pain Condition: Stable Disposition: ADMITTED INPATIENT Admitting Provider: Aditya Unit Admitted: Telemetry
--- NOTE | 2016-09-18 15:09 | RADIOLOGY REPORT (SQ) ---
EXAM DESCRIPTION: CHEST SINGLE VIEW COMPLETED DATE/TIME: 09/18/2016 2:34 pm REASON FOR STUDY: WBC count, tachycardia COMPARISON: None. EXAM PARAMETERS: NUMBER OF VIEWS: One view. TECHNIQUE: Single frontal radiographic view of the chest acquired. RADIATION DOSE: NA LIMITATIONS: Poor inspiration. FINDINGS: LUNGS AND PLEURA: Small calcified granuloma in the right mid lung laterally. No acute opa cities, masses or pneumothorax. No pleural effusion. MEDIASTINUM AND HILAR STRUCTURES: No masses. Contour normal. HEART AND VASCULAR STRUCTURES: Heart normal in size. Normal vasculature. BONES: No acute findings. HARDWARE: None in the chest. OTHER: No other significant finding. IMPRESSION: Poor inspiration without evidence of acute cardiopulmonary disease. TECHNICAL DOCUMENTATION: JOB ID: [id number]
--- NOTE | 2016-09-18 16:37 | RADIOLOGY REPORT (SQ) ---
EXAM DESCRIPTION: CT ABD/PELVIS WITH IV ONLY COMPLETED DATE/TIME: 09/18/2016 4:08 pm REASON FOR STUDY: RLQ tenderness, WBC and fever COMPARISON: None. TECHNIQUE: CT scan of the abdomen and pelvis performed using helical scanning technique with dynamic intravenous contrast injection. No oral contrast. Images reviewed with lung, soft tissue, and bone windows. Reconstructed coronal and sagittal MPR imag es reviewed. Delayed images for evaluation of the urinary system also acquired. All images stored on PACS. All CT scanners at this facility use dose modulation, iterative reconstruction, and/or weight based d osing when appropriate to reduce radiation dose to as low as reasonably achievable (ALARA). [facility]: Dose Right [facility]: CareDose [facility]: Dose Right [facility]: Teradose 4D [facility]: Olocity CONTRAST TYPE AND DOSE: contrast/concentration: Isovue 370.00 mg/ml; Total Contrast Delivered: 100.0 ml; Total Saline Delivered: 45.0 ml RENAL FUNCTION: Creatinine 0.94 RADIATION DOSE: Up-to-date CT equipment and radiation dose reduction techniques were employed. CTDIv ol: 19.9 - 20.8 mGy. DLP: 2003 mGy-cm.. LIMITATIONS: None. FINDINGS: LOWER CHEST: No significant findings. No nodules or infiltrates. LIVER: Multiple masses in the liver are present worrisome for metastatic disease, the largest is in t he right lobe liver inferiorly, 7.2 x 4.5 cm in size. Largest in the left lobe is lateral of the fal ciform ligament, 6 x 4.7 cm size. SPLEEN: Normal size. No focal lesions. PANCREAS: No masses. No significant calcifications. No adjacent inflammation or peripancreatic fluid collections. Pancreatic duct not dilated. GALLBLADDER: No identified stones by CT criteria. No inflammatory changes to suggest cholecystitis. ADRENAL GLANDS: Small bilateral adrenal nodules are present, 1.5 x 1.4 cm in diameter on the right, 1 .4 x 1.4 cm in diameter on the left. RIGHT KIDNEY AND URETER: No solid masses. 7 mm upper pole, 2 mm midpole, 6.5 mm lower pole right in trarenal nonobstructive stones, about 780 Hounsfield units in density No hydronephrosis or hydroure ter. LEFT KIDNEY AND URETER: No solid masses. 6 cm left midpole renal cortical cyst. Left upper pole 6 a nd 7 mm stones, left upper pole 1.2 cm stone, left lower pole 6 mm stone, all about 800 Hounsfield un its in density. No hydronephrosis or hydroureter. AORTA AND VESSELS: No aneurysm. No dissection. Renal arteries, SMA, celiac without stenosis. RETROPERITONEUM: No retroperitoneal adenopathy, hemorrhage or masses. BOWEL AND PERITONEAL CAVITY: In the right lower quadrant in the mesenteric fat, a 1.9 x 1.6 cm nodule is present on axial image 47, and a 2.7 x 2.3 cm nodule is present on axial image 50. These are bot h well demonstrated on coronal image 40. These are abnormal, and could reflect infected or inflamed right lower quadrant lymph nodes or right lower quadrant enlarged lymph nodes from metastatic disease . Adjacent to these nodules, there is abnormal wall thickening of the ascending colon, up to 14 mm i n thickness. This is worrisome for a primary colon tumor. Remainder of the gastrointestinal tract without oral contrast is otherwise unremarkable. APPENDIX: Normal. PELVIS: No mass. No free fluid. Normal bladder. Post hysterectomy ABDOMINAL WALL: No masses. No hernias. BONES: No significant or acute findings. OTHER: No other significant finding. IMPRESSION: Findings worrisome for metastatic disease to the liver, malignant lymph nodes of the rig ht lower quadrant, and a posterior wall ascending colon malignancy TECHNICAL DOCUMENTATION: JOB ID: [id number] Quality ID # [id number]: Final reports with documentation of one or more dose reduction techniques (e.g., Au tomated exposure control, adjustment of the mA and/or kV according to patient size, use of iterative reconstruction technique) 2010 [employer]- All Rights Reserved
[2016-09-18] MEDS ORDERED: CLINDAMYCIN 600 MG/D5W RTU 50 ML IV ONE (17:02)
[2016-09-18] MEDS ORDERED: NORMAL SALINE IV PRN ×2 (17:06)
[2016-09-18] MEDS ORDERED: NORMAL SALINE 1000 ML 1,000 ML IV PRN (17:53)
--- NOTE | 2016-09-18 19:03 | PDOC H&P ---
History of Present Illness Admission Date/PCP: 09/18/16 17:16 Patient complains of: General weakness History of Present Illness: TRELL ISLAS is a 70 year old female is known to my practice and was recently discharged from this hospital following presentation with dental infection and leukocytosis. She is awaiting call from referral to [facility] dental department. Patient reported that she fell at home yesterday and unable to get off the floor for about 6 hours. She reported to the Ed with complain of generalized weakness and temperature of 100.7F. She denied any headache, dizziness, focal weakness, chest pain, palpitation, difficulty with breathing, nausea, or vomiting. She reported right lower abdominal pain since presenting to the ED. Patient reported poor appetite and P.O intake. She denied any genitourinary symptoms suggestive of any infectious process. Her initial evaluation revealed significant leukocytosis and abnormal CT abdomen and pelvis suggestive of liver metastases and ascending colon abnormality with retroperitoneal adenopathy. She reported that her last colonoscopy was more than 10 years ago. Patient was advised admission to the hospital for further evaluation and management. Past Medical History Cardiac Medical History: Reports: Hyperlipidema, Hypertension Endocrine Medical History: Reports: Diabetes Mellitus Type 2 Past Surgical History Past Surgical History: Reports: Hysterectomy Social History Smoking Status: Never Smoker Family History Family History: Reviewed & Not Pertinent Parental Family History Reviewed: Yes Children Family History Reviewed: Yes Sibling(s) Family History Reviewed.: Yes Medication/Allergy Home Medications: Acetaminophen [Tylenol Extra Strength 500 mg Tablet] 2 tab PO DAILYP PRN Aspirin [Aspirin 81 mg Chewable Tablet] 81 mg PO DAILY 09/18/16 Clindamycin HCl 75 mg PO BID 09/18/16 Esomeprazole Magnesium [Nexium] 40 mg PO QAM 09/18/16 Ezetimibe [Zetia 10 mg Tablet] 10 mg PO QHS 09/18/16 Insulin NPH Hum/Reg Insulin Hm [Novolin 70-30 100 Unit/ml Vial] 50 unit SQ QPM 09/18/16 Insulin NPH Hum/Reg Insulin Hm [Novolin 70-30 100 Unit/ml Vial] 90 unit SQ QAM 09/18/16 Irbesartan 300 mg PO DAILY 09/18/16 Loratadine [Claritin 10 mg Tablet] 10 mg PO DAILY 09/18/16 Metformin HCl [Glucophage] 500 mg PO BIDBS 09/18/16 Allergies/Adverse Reactions: No Known Allergies Allergy (Verified 09/18/16 12:18) Review of Systems Constitutional: PRESENT: anorexia, fever(s), weakness. ABSENT: as per HPI, chills, fatigue, headache(s), night sweats, weight gain, weight loss, other Eyes: ABSENT: visual disturbances Ears: ABSENT: hearing changes Nose, Mouth, and Throat: ABSENT: as per HPI, headache(s), mouth pain, sore throat, vertigo, other Cardiovascular: ABSENT: chest pain, dyspnea on exertion, edema, orthropnea, palpitations Respiratory: ABSENT: cough, hemoptysis Gastrointestinal: PRESENT: abdominal pain. ABSENT: as per HPI, bloating, coffee ground emesis, constipation, diarrhea, dysphagia, heartburn, hematemesis , hematochezia, melena, nausea, vomiting, other Genitourinary: ABSENT: dysuria, hematuria Musculoskeletal: PRESENT: muscle weakness - genralized. ABSENT: as per HPI, back pain, deformity, joint swelling, other Integumentary: ABSENT: as per HPI, diaphoresis, erythema, lesions, pruritus, rash, wounds, other Neurological: PRESENT: weakness - generalized. ABSENT: as per HPI, abnormal gait, abnormal movements, abnormal speech, confusion, convulsions, dizziness, focal weakness, frequent falls, lack of coordination, memory loss, numbness, paresthesias, restless legs, syncope, tingling, tremor(s), vertigo, other Psychiatric: ABSENT: anxiety, depression, homidical ideation, suicidal ideation Endocrine: ABSENT: cold intolerance, heat intolerance, polydipsia, polyuria Hematologic/Lymphatic: ABSENT: easy bleeding, easy bruising, lymphadenopathy Allergic/Immunologic: ABSENT: seasonal rhinorrhea Physical Exam Vital Signs: Temp Pulse Resp BP Pulse Ox 99.1 F 95 16 138/68 H 99 09/18/16 16:15 09/18/16 16:15 09/18/16 16:15 09/18/16 16:15 09/18/16 16:15 General appearance: PRESENT: no acute distress, cooperative, disheveled, obese Head exam: PRESENT: atraumatic, normocephalic Eye exam: PRESENT: conjunctiva pink, EOMI, PERRLA. ABSENT: scleral icterus Ear exam: PRESENT: normal external ear exam Mouth exam: PRESENT: dry mucosa - fairly dry Teeth exam: PRESENT: dental caries, dental tenderness, poor dentation Throat exam: ABSENT: post pharyngeal erythema, tonsillar erythema, tonsillar exudate, tonsillogmegaly, other Neck exam: PRESENT: full ROM. ABSENT: carotid bruit, JVD, lymphadenopathy, thyromegaly Respiratory exam: PRESENT: clear to auscultation [place], decreased breath sounds - bilateral lung bases Cardiovascular exam: PRESENT: RRR. ABSENT: diastolic murmur, rubs, systolic murmur Pulses: PRESENT: normal dorsalis pedis pul, +2 pedal pulses bilateral Vascular exam: PRESENT: normal capillary refill GI/Abdominal exam: PRESENT: normal bowel sounds, soft, tenderness - RLQ region. ABSENT: distended, guarding, mass, organolmegaly, rebound Rectal exam: PRESENT: deferred Extremities exam: ABSENT: pedal edema Musculoskeletal exam: PRESENT: normal inspection Neurological exam: PRESENT: alert, awake, oriented to person, oriented to place , oriented to time, oriented to situation, CN II-XII grossly intact. ABSENT: motor sensory deficit Psychiatric exam: PRESENT: appropriate affect, normal mood. ABSENT: homicidal ideation, suicidal ideation Skin exam: PRESENT: dry, intact, warm. ABSENT: cyanosis, rash Results Laboratory Results: I reviewed [facility] lab results and form part of my medical decision making. Impressions: Chest X-Ray 09/18/16 13:56 IMPRESSION: Poor inspiration without evidence of acute cardiopulmonary disease. Abdomen/Pelvis CT 09/18/16 15:19 IMPRESSION: Findings worrisome for metastatic disease to the liver, malignant lymph nodes of the right lower quadrant, and a posterior wall ascending colon malignancy Assessment & Plan - Diagnosis (1) Infected dental carries Is this a current diagnosis for this admission?: YesPlan: See admitting attending physician orders. (2) Abdominal pain Qualifiers: Abdominal location: right lower quadrant Qualified Code(s): R10.31 - Right lower quadrant pain Is this a current diagnosis for this admission?: YesPlan: See admitting attending physician orders. (3) Uncontrolled type 2 diabetes mellitus with complication Qualifiers: Diabetes mellitus [facility] insulin use: with [facility] use Qualified Code(s): E11.8 - Type 2 diabetes mellitus with unspecified complications; E11.65 - Type 2 diabetes mellitus with hyperglycemia Is this a current diagnosis for this admission?: YesPlan: See admitting attending physician orders. (4) HTN (hypertension) Qualifiers: Hypertension type: essential hypertension Qualified Code(s): I10 - Essential (primary) hypertension Is this a current diagnosis for this admission?: YesPlan: See admitting attending physician orders. (5) HLD (hyperlipidemia) Qualifiers: Hyperlipidemia type: pure hypercholesterolemia Qualified Code(s): E78.00 - Pure hypercholesterolemia, unspecified; E78.0 - Pure hypercholesterolemia Is this a current diagnosis for this admission?: YesPlan: See admitting attending physician orders. (6) Obesity with body mass index (BMI) of 30.0 to 39.9 Is this a current diagnosis for this admission?: YesPlan: See admitting attending physician orders. - Time Time Spent: Greater than 70 Minutes Medications reviewed and adjusted accordingly: Yes Anticipated discharge: Home with Homehealth Within: Other - Inpatient Certification Based on my medical assessment, after consideration of the patient's comorbidities, presenting symptoms, or acuity I expect that the services needed warrant INPATIENT care.: Yes I certify that my determination is in accordance with my understanding of Medicare's requirements for reasonable and necessary INPATIENT services [42 CFR 412.3e].: Yes Medical Necessity: Need Close Monitoring Due to Risk of Patient Decompensation, Need For IV Fluids, Need For Continuous Telemetry Monitoring, Need for IV Antibiotics, Risk of Complication if Not Cared For in Hospital 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
[2016-09-18] MEDS ORDERED: GLUCAGON,HUMAN RECOMB 1 MG INJ IM PRN (19:06)
[2016-09-18] MEDS ORDERED: DEXTROSE 40% GEL 15 GM TUBE PO PRN ×2 (19:06)
[2016-09-18] MEDS ORDERED: DEXTROSE 50%-WATER 25 GM/50 ML DISP.SYRIN IV PRN ×2 (19:06)
[2016-09-18] MEDS ORDERED: ENOXAPARIN SODIUM INJ 40 MG/0.4 ML DISP.SYRIN SUBCUT ONE (20:00)
[2016-09-18 20:12] LABS: CREATINE KINASE 453 U/L (30-135)
[2016-09-18 20:21] LABS: CREATINE KINASE MB 1.69 ng/mL (<4.55)
[2016-09-18 20:22] LABS: TROPONIN I < 0.012 ng/mL
[2016-09-18 21:40] LABS: PROTHROMBIN TIME 15.9 SEC (11.4-15.4)
[2016-09-18 21:42] LABS: PARTIAL THROMBOPLASTIN TIME 41.1 SEC (23.5-35.8)
[2016-09-18] MEDS: NORMAL SALINE IV PRN (22:09)
[2016-09-18] MEDS: CLINDAMYCIN 600 MG/D5W RTU 50 ML IV SCH (22:09)
[2016-09-19] MEDS: LANSOPRAZOLE 30 MG TAB.RAP.DR PO SCH (05:49)
[2016-09-19] MEDS: CLINDAMYCIN 600 MG/D5W RTU 50 ML IV SCH (05:49)
[2016-09-19 06:52] LABS: ABSOLUTE BASOPHILS # (AUTO) 0.1 10^3/uL (0.0-0.2); ABSOLUTE EOSINOPHILS # (AUTO) 0.1 10^3/uL (0.0-0.6); ABSOLUTE LYMPHOCYTES (AUTO) 2.2 10^3/uL (0.5-4.7); ABSOLUTE NEUT (AUTO) 12.3 10^3/uL (1.7-8.2); BASOPHILS % (AUTO) 0.4 % (0-2); EOSINOPHILS % (AUTO) 0.3 % (0-6); HEMATOCRIT 26.5 % (36.0-47.0); HEMOGLOBIN 8.1 g/dL (12.0-15.5); HGB HCT DIFFERENCE -2.2; LYMPHOCYTES % (AUTO) 13.2 % (13-45); MEAN CORPUSCULAR HGB CONC 30.7 g/dL (32.0-36.0); MEAN CORPUSCULAR VOLUME 81 fl (80-97); MONOCYTES % (AUTO) 11.8 % (3-13); RED BLOOD COUNT 3.25 10^6/uL (3.72-5.28); RED CELL DISTRIBUTION WIDTH 19.5 % (11.5-14.0); SEGMENTED NEUTROPHILS % (AUTO) 74.3 % (42-78); WHITE BLOOD COUNT 16.5 10^3/uL (4.0-10.5)
[2016-09-19 07:04] LABS: ALANINE AMINOTRANSFERASE 44 U/L (9-52); ALBUMIN 2.9 g/dL (3.5-5.0); ALKALINE PHOSPHATASE 136 U/L (38-126); ANION GAP 9 (5-19); ASPARTATE AMINO TRANSFERASE 45 U/L (14-36); BILIRUBIN,DIRECT 0.4 mg/dL (0.0-0.4); BILIRUBIN,TOTAL 0.8 mg/dL (0.2-1.3); BLOOD UREA NITROGEN 9 mg/dL (7-20); CALCIUM 9.6 mg/dL (8.4-10.2); CARBON DIOXIDE 25 mmol/L (22-30); CHLORIDE 106 mmol/L (98-107); CREATININE RESULT 0.81 mg/dL (0.52-1.25); GLUCOSE 125 mg/dL (75-110); POTASSIUM 4.2 mmol/L (3.6-5.0); SODIUM 140.3 mmol/L (137-145); TOTAL PROTEIN 6.6 g/dL (6.3-8.2)
[2016-09-19] MEDS: NORMAL SALINE IV PRN (09:43)
[2016-09-19] MEDS: ENOXAPARIN SODIUM INJ 40 MG/0.4 ML DISP.SYRIN SUBCUT SCH (09:45)
[2016-09-19] MEDS: ACETAMINOPHEN 325 MG TABLET PO PRN ×2 (09:46→21:07)
--- NOTE | 2016-09-19 10:52 | EKG REPORT ---
SEVERITY:- ABNORMAL ECG - SINUS TACHYCARDIA LEFT AXIS DEVIATION PROBABLE LEFT VENTRICULAR HYPERTROPHY : Confirmed by: Chad Card 19-Sep-2016 10:51:59
[2016-09-19] MEDS: AMPICILLIN SODIUM/SULBACTAM NA 3 GM in NORMAL SALINE 100 ML IV SCH ×2 (13:49→17:16)
--- NOTE | 2016-09-19 15:23 | Physician Advisory Note ---
Physician Advisor ProgressNote .: [facility], I have reviewed the medical record for this patient. Physician Advisor Statement: Please consider documentin. "abd pain RLQ, suspect due to colon CA w/liver mets" [to better clarify attending concerns/pt acuity] 2. "anemia, likely of chronic Fe defic from chronic blood loss, due to colon CA " (or ....) Thanks! CK
[2016-09-19] MEDS ORDERED: PEG 3350/NA SULF,BICARB,CL/KCL 4000 ML PO ONE (17:00)
--- NOTE | 2016-09-19 20:17 | PDOC PROGRESS REPORT ---
Subjective Progress Note for:: 09/19/16 Subjective:: No chest pain or difficulty with breathing. Patient had episode of fever with temperature at 102.4F earlier this morning. Currently on IV Unasyn coverage. No nausea, vomiting or abdominal pain. Undergoing preparation for colonoscopy in view of abnormal CT scan abdomen and pelvic findings. Physical Exam Vital Signs: Temp Pulse Resp BP Pulse Ox 97.9 F 92 20 121/64 94 09/19/16 15:56 09/19/16 15:56 09/19/16 15:56 09/19/16 15:56 09/19/16 11:36 Intake & Output 09/18/16 09/19/16 09/20/16 06:59 06:59 06:59 Intake Total 1820 2740 Output Total 200 400 Balance 1620 2340 Weight 99.7 kg General appearance: PRESENT: no acute distress, cooperative, obese Head exam: PRESENT: atraumatic, normocephalic Eye exam: PRESENT: conjunctiva pink, EOMI, PERRLA. ABSENT: scleral icterus Mouth exam: PRESENT: moist Teeth exam: PRESENT: poor dentation Respiratory exam: PRESENT: clear to auscultation [place] Cardiovascular exam: PRESENT: RRR. ABSENT: diastolic murmur, rubs, systolic murmur GI/Abdominal exam: PRESENT: normal bowel sounds, soft. ABSENT: distended, guarding, mass, organolmegaly, rebound, tenderness Extremities exam: ABSENT: pedal edema Musculoskeletal exam: PRESENT: deformity - related to multiple joints involvement with arthritis Neurological exam: PRESENT: alert, awake, oriented to person, oriented to place , oriented to time, oriented to situation, CN II-XII grossly intact. ABSENT: motor sensory deficit Psychiatric exam: PRESENT: appropriate affect, normal mood. ABSENT: homicidal ideation, suicidal ideation Skin exam: PRESENT: dry, intact, warm. ABSENT: cyanosis, rash Results Laboratory Results: 09/19/16 05:53 09/19/16 05:53 09/19/16 09/19/16 05:53 05:53 WBC 16.5 H RBC 3.25 L Hgb 8.1 L Hct 26.5 L MCV 81 MCH 25.0 L MCHC 30.7 L RDW 19.5 H Plt Count 214 Seg Neutrophils % 74.3 Lymphocytes % 13.2 Monocytes % 11.8 Eosinophils % 0.3 Basophils % 0.4 Absolute Neutrophils 12.3 H Absolute Lymphocytes 2.2 Absolute Monocytes 2.0 H Absolute Eosinophils 0.1 Absolute Basophils 0.1 Sodium 140.3 Potassium 4.2 Chloride 106 Carbon Dioxide 25 Anion Gap 9 BUN 9 Creatinine 0.81 Est GFR ( Amer) > 60 Est GFR (Non-Af Amer) > 60 Glucose 125 H Calcium 9.6 Total Bilirubin 0.8 AST 45 H ALT 44 Alkaline Phosphatase 136 H Total Protein 6.6 Albumin 2.9 L Impressions: Chest X-Ray 09/18/16 13:56 IMPRESSION: Poor inspiration without evidence of acute cardiopulmonary disease. Abdomen/Pelvis CT 09/18/16 15:19 IMPRESSION: Findings worrisome for metastatic disease to the liver, malignant lymph nodes of the right lower quadrant, and a posterior wall ascending colon malignancy Assessment & Plan - Diagnosis (1) Infected dental carries Is this a current diagnosis for this admission?: YesPlan: Start on IV Unasyn 3gm q 6 hours. D/C Clindamycin. Maintain on Acetaminophen 650 mg po q4hrs prn for temp > 101F. Continue IV fluid support. (2) Abdominal pain Qualifiers: Abdominal location: right lower quadrant Qualified Code(s): R10.31 - Right lower quadrant pain Is this a current diagnosis for this admission?: YesPlan: Probably related to her abnormal abdomen/pelvic CT scan findings. Consult with Dr. Pierce regarding colonoscopy evaluation. Follow up on colonoscopy findings. (3) Uncontrolled type 2 diabetes mellitus with complication Qualifiers: Diabetes mellitus terminal carman insulin use: with prison use Qualified Code(s): E11.8 - Type 2 diabetes mellitus with unspecified complications; E11.65 - Type 2 diabetes mellitus with hyperglycemia Is this a current diagnosis for this admission?: YesPlan: Continue current management with Humalog sliding scale insulin coverage. (4) HTN (hypertension) Qualifiers: Hypertension type: essential hypertension Qualified Code(s): I10 - Essential (primary) hypertension Is this a current diagnosis for this admission?: YesPlan: See attending physician orders. (5) HLD (hyperlipidemia) Qualifiers: Hyperlipidemia type: pure hypercholesterolemia Qualified Code(s): E78.00 - Pure hypercholesterolemia, unspecified; E78.0 - Pure hypercholesterolemia Is this a current diagnosis for this admission?: YesPlan: See attending physician orders. (6) Obesity with body mass index (BMI) of 30.0 to 39.9 Is this a current diagnosis for this admission?: YesPlan: See attending physician orders. - Time Time Spent with patient: 35 or more minutes Medications reviewed and adjusted accordingly: Yes Anticipated discharge: Home Within: Other - Inpatient Certification Based on my medical assessment, after consideration of the patient's comorbidities, presenting symptoms, or acuity I expect that the services needed warrant INPATIENT care.: Yes I certify that my determination is in accordance with my understanding of Medicare's requirements for reasonable and necessary INPATIENT services [42 CFR 412.3e].: Yes Medical Necessity: Need Close Monitoring Due to Risk of Patient Decompensation, Need For IV Fluids, Need For Continuous Telemetry Monitoring, Need for IV Antibiotics, Risk of Complication if Not Cared For in Hospital Post Hospital Care: D/C Sweat Band Separator Documentation - Plan Summary Plan Summary: See attending physician orders. I had extensive discussion with patient and daughter at bedside during my consultation today. I did discussed her CT scan findings, current care plan, and pending colonoscopy for tomorrow.
[2016-09-19 21:37] LABS: ABSOLUTE EOSINOPHILS # (AUTO) 0.1 10^3/uL (0.0-0.6); ABSOLUTE LYMPHOCYTES (AUTO) 1.7 10^3/uL (0.5-4.7); ABSOLUTE MONOCYTES (AUTO) 1.4 10^3/uL (0.1-1.4); ABSOLUTE NEUT (AUTO) 10.4 10^3/uL (1.7-8.2); BASOPHILS % (AUTO) 0.2 % (0-2); EOSINOPHILS % (AUTO) 0.6 % (0-6); HEMATOCRIT 29.4 % (36.0-47.0); HEMOGLOBIN 8.9 g/dL (12.0-15.5); HGB HCT DIFFERENCE -2.7; LYMPHOCYTES % (AUTO) 12.2 % (13-45); MEAN CORPUSCULAR HGB CONC 30.2 g/dL (32.0-36.0); MEAN CORPUSCULAR VOLUME 83 fl (80-97); MONOCYTES % (AUTO) 10.1 % (3-13); RED BLOOD COUNT 3.56 10^6/uL (3.72-5.28); RED CELL DISTRIBUTION WIDTH 19.9 % (11.5-14.0); SEGMENTED NEUTROPHILS % (AUTO) 76.9 % (42-78); WHITE BLOOD COUNT 13.6 10^3/uL (4.0-10.5)
[2016-09-20] MEDS: AMPICILLIN SODIUM/SULBACTAM NA 3 GM in NORMAL SALINE 100 ML IV SCH ×4 (00:59→22:53)
[2016-09-20] MEDS: METRONIDAZOLE 500 MG/NS RTU 100 ML IV SCH ×4 (01:46→21:41)
[2016-09-20] MEDS: LANSOPRAZOLE 30 MG TAB.RAP.DR PO SCH (05:50)
[2016-09-20 07:07] LABS: ABSOLUTE BASOPHILS # (AUTO) 0.1 10^3/uL (0.0-0.2); ABSOLUTE EOSINOPHILS # (AUTO) 0.2 10^3/uL (0.0-0.6); ABSOLUTE LYMPHOCYTES (AUTO) 1.9 10^3/uL (0.5-4.7); ABSOLUTE MONOCYTES (AUTO) 1.3 10^3/uL (0.1-1.4); ABSOLUTE NEUT (AUTO) 10.1 10^3/uL (1.7-8.2); BASOPHILS % (AUTO) 0.5 % (0-2); EOSINOPHILS % (AUTO) 1.2 % (0-6); HEMATOCRIT 27.5 % (36.0-47.0); HEMOGLOBIN 8.6 g/dL (12.0-15.5); HGB HCT DIFFERENCE -1.7; MEAN CORPUSCULAR HEMOGLOBIN 25.5 pg (27.0-33.4); MEAN CORPUSCULAR HGB CONC 31.2 g/dL (32.0-36.0); MEAN CORPUSCULAR VOLUME 82 fl (80-97); MONOCYTES % (AUTO) 9.5 % (3-13); RED BLOOD COUNT 3.36 10^6/uL (3.72-5.28); RED CELL DISTRIBUTION WIDTH 20.1 % (11.5-14.0); SEGMENTED NEUTROPHILS % (AUTO) 74.8 % (42-78); WHITE BLOOD COUNT 13.5 10^3/uL (4.0-10.5)
[2016-09-20 07:14] LABS: PROTHROMBIN TIME 15.1 SEC (11.4-15.4)
[2016-09-20 07:15] LABS: PARTIAL THROMBOPLASTIN TIME 40.6 SEC (23.5-35.8)
[2016-09-20 07:32] LABS: ALANINE AMINOTRANSFERASE 60 U/L (9-52); ALBUMIN 3.1 g/dL (3.5-5.0); ALKALINE PHOSPHATASE 170 U/L (38-126); ANION GAP 10 (5-19); ASPARTATE AMINO TRANSFERASE 62 U/L (14-36); BILIRUBIN,DIRECT 0.4 mg/dL (0.0-0.4); BILIRUBIN,TOTAL 0.9 mg/dL (0.2-1.3); BLOOD UREA NITROGEN 6 mg/dL (7-20); CALCIUM 9.8 mg/dL (8.4-10.2); CARBON DIOXIDE 27 mmol/L (22-30); CHLORIDE 103 mmol/L (98-107); CREATININE RESULT 0.68 mg/dL (0.52-1.25); GLUCOSE 208 mg/dL (75-110); POTASSIUM 4.3 mmol/L (3.6-5.0); SODIUM 140.4 mmol/L (137-145); TOTAL PROTEIN 6.9 g/dL (6.3-8.2)
--- NOTE | 2016-09-20 08:20 | PDOC PROGRESS REPORT ---
Subjective Progress Note for:: 09/20/16 Subjective:: No chest pain or difficulty with breathing. She completed preparation for colonoscopy later today. There was episode of rectal bleeding last night during her preparation bowel evacuation process last night. Her hemoglobin remain stable thereafter. She had episode of fever with temperature at 102F thereafter. No nausea, vomiting or abdominal pain. Currently on IV Unasyn with added IV Metronidazole coverage. Physical Exam Vital Signs: Temp Pulse Resp BP Pulse Ox 99.3 F 98 18 137/66 H 98 09/20/16 03:36 09/20/16 07:00 09/20/16 03:36 09/20/16 03:36 09/20/16 03:36 Intake & Output 09/19/16 09/20/16 09/21/16 06:59 06:59 06:59 Intake Total 1820 5800 Output Total 200 400 Balance 1620 5400 Weight 99.7 kg Physical Exam: General appearance: PRESENT: no acute distress, cooperative, obese Head exam: PRESENT: atraumatic, normocephalic Eye exam: PRESENT: conjunctiva pink, EOMI, PERRLA. ABSENT: scleral icterus Mouth exam: PRESENT: moist Teeth exam: PRESENT: poor dentation Respiratory exam: PRESENT: clear to auscultation [place] Cardiovascular exam: PRESENT: RRR. ABSENT: diastolic murmur, rubs, systolic murmur GI/Abdominal exam: PRESENT: normal bowel sounds, soft. ABSENT: distended, guarding, mass, organomegaly, rebound, tenderness Extremities exam: ABSENT: pedal edema Musculoskeletal exam: PRESENT: deformity - related to multiple joints involvement with arthritis Neurological exam: PRESENT: alert, awake, oriented to person, oriented to place , oriented to time, oriented to situation, CN II-XII grossly intact. ABSENT: motor sensory deficit Psychiatric exam: PRESENT: appropriate affect, normal mood. ABSENT: homicidal ideation, suicidal ideation Skin exam: PRESENT: dry, intact, warm. ABSENT: cyanosis, rash Results Laboratory Results: 09/20/16 06:30 09/20/16 06:30 09/19/16 09/19/16 09/20/16 21:08 21:20 06:30 WBC 13.6 H 13.5 H RBC 3.56 L 3.36 L Hgb 8.9 L 8.6 L Hct 29.4 L 27.5 L MCV 83 82 MCH 25.0 L 25.5 L MCHC 30.2 L 31.2 L RDW 19.9 H 20.1 H Plt Count 236 242 Seg Neutrophils % 76.9 74.8 Lymphocytes % 12.2 L 14.0 Monocytes % 10.1 9.5 Eosinophils % 0.6 1.2 Basophils % 0.2 0.5 Absolute Neutrophils 10.4 H 10.1 H Absolute Lymphocytes 1.7 1.9 Absolute Monocytes 1.4 1.3 Absolute Eosinophils 0.1 0.2 Absolute Basophils 0.0 0.1 Sodium Potassium Chloride Carbon Dioxide Anion Gap BUN Creatinine Est GFR ( Amer) Est GFR (Non-Af Amer) Glucose Calcium Total Bilirubin AST ALT Alkaline Phosphatase Total Protein Albumin Blood Type A POSITIVE Antibody Screen NEGATIVE 09/20/16 06:30 WBC RBC Hgb Hct MCV MCH MCHC RDW Plt Count Seg Neutrophils % Lymphocytes % Monocytes % Eosinophils % Basophils % Absolute Neutrophils Absolute Lymphocytes Absolute Monocytes Absolute Eosinophils Absolute Basophils Sodium 140.4 Potassium 4.3 Chloride 103 Carbon Dioxide 27 Anion Gap 10 BUN 6 L Creatinine 0.68 Est GFR ( Amer) > 60 Est GFR (Non-Af Amer) > 60 Glucose 208 H Calcium 9.8 Total Bilirubin 0.9 AST 62 H ALT 60 H Alkaline Phosphatase 170 H Total Protein 6.9 Albumin 3.1 L Blood Type Antibody Screen Impressions: Chest X-Ray 09/18/16 13:56 IMPRESSION: Poor inspiration without evidence of acute cardiopulmonary disease. 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 insulin use: with usp use Qualified Code(s): E11.8 - Type 2 diabetes mellitus with unspecified complications; E11.65 - Type 2 diabetes mellitus with hyperglycemia Is this a current diagnosis for this admission?: Yes (4) HTN (hypertension) Qualifiers: Hypertension type: essential hypertension Qualified Code(s): I10 - Essential (primary) hypertension Is this a current diagnosis for this admission?: Yes (5) HLD (hyperlipidemia) Qualifiers: Hyperlipidemia type: pure hypercholesterolemia Qualified Code(s): E78.00 - Pure hypercholesterolemia, unspecified; E78.0 - Pure hypercholesterolemia Is this a current diagnosis for this admission?: Yes (6) Obesity with body mass index (BMI) of 30.0 to 39.9 Is this a current diagnosis for this admission?: Yes - Time Time Spent with patient: 25-34 minutes Medications reviewed and adjusted accordingly: Yes Anticipated discharge: Home with Homehealth Within: Other - Inpatient Certification Based on my medical assessment, after consideration of the patient's comorbidities, presenting symptoms, or acuity I expect that the services needed warrant INPATIENT care.: Yes I certify that my determination is in accordance with my understanding of Medicare's requirements for reasonable and necessary INPATIENT services [42 CFR 412.3e].: Yes Medical Necessity: Need Close Monitoring Due to Risk of Patient Decompensation, Need For IV Fluids, Need For Continuous Telemetry Monitoring, Need for IV Antibiotics, Risk of Complication if Not Cared For in Hospital Post Hospital Care: D/C Retail Grocer Documentation - Plan Summary Plan Summary: Continue with IV Unasyn and Metronidazole coverage. Follow up on colonoscopy findings. There may be need for PRBC transfusion after procedure if hemoglobin is less than 8gm/dL. Patient will be NPO after lunch today. Lovenox is currently on hold.
[2016-09-20] MEDS: ACETAMINOPHEN 325 MG TABLET PO PRN (11:42)
[2016-09-20] MEDS ORDERED: NALOXONE HCL INJ/PF 0.4 MG/1 ML SDV ONE (16:39)
[2016-09-20] MEDS ORDERED: FLUMAZENIL INJ 0.5 MG/5 ML VIAL IV ONE (16:40)
[2016-09-20] MEDS ORDERED: EPINEPHRINE INJ 1 MG/10 ML DISP.SYRIN ONE (16:40)
[2016-09-20] MEDS ORDERED: MIDAZOLAM 2 MG/2 ML INJ ONE (16:40)
[2016-09-20] MEDS ORDERED: GLUCAGON,HUMAN RECOMB 1 MG INJ ONE (16:40)
[2016-09-20] MEDS ORDERED: FENTANYL CITRATE INJ/PF 100 MCG/2 ML AMPUL ONE (16:40)
--- NOTE | 2016-09-20 19:08 | PDOC CONSULTATION ---
Consultation Consult Date: 09/19/16 History of Present Illness Admission Date/PCP: 09/18/16 19:03 History of Present Illness: This is a 70-year-old patient who was admitted on 09/18/2016 for generalized weakness. She was admitted to the hospital in August for a dental infection. On admission in August her hemoglobin was 9 and this time it was 9.6 with microcytosis. She admits to feeling tired and short of breath on exertion. She has also been having occasional right lower quadrant pain but denies rectal bleeding. Her stool was positive for occult blood in August. She had a CAT scan on the day of admission which showed multiple masses in the liver as large as 7.2 cm in the right lobe and 6 cm in the left lobe. She also had nodules in the right lower quadrant that may be lymph nodes. There was also an abnormal thickening of the ascending colon worrisome for a colonic tumor. Past Medical History Cardiac Medical History: Reports: Hyperlipidema, Hypertension Neurological Medical History: Denies: Seizures Endocrine Medical History: Reports: Diabetes Mellitus Type 2 Past Surgical History Past Surgical History: Reports: Hysterectomy Social History Smoking Status: Unknown if Ever Smoked Frequency of Alcohol Use: None Hx Recreational Drug Use: No Hx Prescription Drug Abuse: No - Advance Directive Resuscitation Status: Full Code Family History Family History: Reviewed & Not Pertinent Parental Family History Reviewed: No Children Family History Reviewed: NA Sibling(s) Family History Reviewed.: NA Medication/Allergy Home Medications: Acetaminophen [Tylenol Extra Strength 500 mg Tablet] 2 tab PO DAILYP PRN Aspirin [Aspirin 81 mg Chewable Tablet] 81 mg PO DAILY 09/18/16 Clindamycin HCl 75 mg PO BID 09/18/16 Esomeprazole Magnesium [Nexium] 40 mg PO QAM 09/18/16 Ezetimibe [Zetia 10 mg Tablet] 10 mg PO QHS 09/18/16 Insulin NPH Hum/Reg Insulin Hm [Novolin 70-30 100 Unit/ml Vial] 50 unit SQ QPM 09/18/16 Insulin NPH Hum/Reg Insulin Hm [Novolin 70-30 100 Unit/ml Vial] 90 unit SQ QAM 09/18/16 Irbesartan 300 mg PO DAILY 09/18/16 Loratadine [Claritin 10 mg Tablet] 10 mg PO DAILY 09/18/16 Metformin HCl [Glucophage] 500 mg PO BIDBS 09/18/16 Allergies/Adverse Reactions: No Known Allergies Allergy (Verified 09/18/16 12:18) Review of Systems All systems: reviewed and no additional remarkable complaints except as stated Physical Exam Vital Signs: Temp Pulse Resp BP Pulse Ox 98.6 F 88 23 H 124/56 L 97 09/20/16 18:00 09/20/16 19:00 09/20/16 19:00 09/20/16 19:00 09/20/16 19:00 Intake & Output 09/19/16 09/20/16 09/21/16 06:59 06:59 06:59 Intake Total 1820 5800 1350 Output Total 200 400 Balance 1620 5400 1350 Weight 99.7 kg Exam: General: Patient is alert. She is obese HEENT: There is some pallor but no jaundice. PERRLA. Oropharynx normal Respiratory: No chest deformity. No respiratory distress. Chest wall palpitation was unremarkable. Breath sounds were normal Cardiovascular: Heart sounds 1 and 2 normal with no murmurs. Abdominal: Not distended. Soft and nontender. Difficult to feel masses due to obesity Extremities: No edema Neurological: Alert and oriented x4. Grossly nonfocal. Normal speech Skin: No significant rash Psychological: Normal affect Results Laboratory Results: 09/20/16 06:30 09/20/16 06:30 09/19/16 09/19/16 09/20/16 21:08 21:20 06:30 WBC 13.6 H 13.5 H RBC 3.56 L 3.36 L Hgb 8.9 L 8.6 L Hct 29.4 L 27.5 L MCV 83 82 MCH 25.0 L 25.5 L MCHC 30.2 L 31.2 L RDW 19.9 H 20.1 H Plt Count 236 242 Seg Neutrophils % 76.9 74.8 Lymphocytes % 12.2 L 14.0 Monocytes % 10.1 9.5 Eosinophils % 0.6 1.2 Basophils % 0.2 0.5 Absolute Neutrophils 10.4 H 10.1 H Absolute Lymphocytes 1.7 1.9 Absolute Monocytes 1.4 1.3 Absolute Eosinophils 0.1 0.2 Absolute Basophils 0.0 0.1 Sodium Potassium Chloride Carbon Dioxide Anion Gap BUN Creatinine Est GFR ( Amer) Est GFR (Non-Af Amer) Glucose Calcium Total Bilirubin AST ALT Alkaline Phosphatase Total Protein Albumin Blood Type A POSITIVE Antibody Screen NEGATIVE 09/20/16 06:30 WBC RBC Hgb Hct MCV MCH MCHC RDW Plt Count Seg Neutrophils % Lymphocytes % Monocytes % Eosinophils % Basophils % Absolute Neutrophils Absolute Lymphocytes Absolute Monocytes Absolute Eosinophils Absolute Basophils Sodium 140.4 Potassium 4.3 Chloride 103 Carbon Dioxide 27 Anion Gap 10 BUN 6 L Creatinine 0.68 Est GFR ( Amer) > 60 Est GFR (Non-Af Amer) > 60 Glucose 208 H Calcium 9.8 Total Bilirubin 0.9 AST 62 H ALT 60 H Alkaline Phosphatase 170 H Total Protein 6.9 Albumin 3.1 L Blood Type Antibody Screen Impressions: Chest X-Ray 09/18/16 13:56 IMPRESSION: Poor inspiration without evidence of acute cardiopulmonary disease. Abdomen/Pelvis CT 09/18/16 15:19 IMPRESSION: Findings worrisome for metastatic disease to the liver, malignant lymph nodes of the right lower quadrant, and a posterior wall ascending colon malignancy Assessment & Plan - Diagnosis (1) Abnormal findings on diagnostic imaging of liver Is this a current diagnosis for this admission?: YesPlan: She has lesions in the liver suggestive of metastatic disease. Ascending colon is also abnormal on the CAT scan. She will undergo an EGD and colonoscopy looking for primary GI neoplasm. (2) Microcytic anemia Is this a current diagnosis for this admission?: YesPlan: She likely has iron deficiency anemia. Iron studies will be requested (3) Abnormal CT scan, gastrointestinal tract Is this a current diagnosis for this admission?: Yes (4) Heme positive stool Is this a current diagnosis for this admission?: Yes
--- NOTE | 2016-09-20 19:16 | Operative Report ---
Operative Report DATE OF SURGERY: 09/20/16 Operative Report: Pre-op diagnosis: Abnormal CAT scan of the liver and right colon Post-op diagnosis: 1. Normal EGD 2. Multiple large polyps in the cecum 3. Proximal ascending colon mass 4. Polyps in the transverse and descending colon 5. Pancolonic diverticulosis 6. Limited view of the colon Surgery: Upper endoscopy and Colonoscopy with polypectomy and biopsy Medications: Versed 2mg, Fentanyl 100mcg IV push Tissue removed: Multiple colon polyps Procedure: After informed consent obtained from patient, patient's pharynx was sprayed with Hurricane and conscious sedation was achieved. The upper endoscope was then inserted into the esophagus under direct vision and advanced into the stomach and further into the duodenum. Detailed examination of the duodenum, stomach and the esophagus was then performed. A digital rectal examination was performed and this was unremarkable. The colonoscope was inserted into the rectum and advanced to the cecum. The appendiceal orifice and the terminal ileum were both identified. The mucosa was examined into details as the colonoscope was slowly pulled out of the patient. View of the colon was moderately limited but no other large masses were identified except in the ascending colon. Patient tolerated the procedure well. Findings Esophagus: Normal Stomach: Normal Duodenum: Normal Cecum: Multiple polyps ranging from 1-2 cm. There were not removed Ascending colon: 4-5 cm firm mass in the proximal ascending colon. Biopsies were taken. Diverticuli were noted in the ascending and transverse colon Transverse colon: Three 6-13 mm polyps removed with a hot snare Descending colon: A 13 mm polyp removed with a hot snare Sigmoid colon: A few diverticuli noted Rectum: Normal except for internal hemorrhoids Plan: Surgical and oncology referral. Await pathology. OPERATION: .
[2016-09-21] MEDS: INSULIN LISPRO 100 UNIT/ML 3 ML VIAL SUBCUT PRN ×4 (00:03→22:00)
[2016-09-21] MEDS: AMPICILLIN SODIUM/SULBACTAM NA 3 GM in NORMAL SALINE 100 ML IV SCH ×5 (00:06→23:11)
[2016-09-21] MEDS: METRONIDAZOLE 500 MG/NS RTU 100 ML IV SCH ×4 (03:14→20:39)
[2016-09-21] MEDS: LANSOPRAZOLE 30 MG TAB.RAP.DR PO SCH (05:18)
[2016-09-21] MEDS: NORMAL SALINE 1000 ML 1,000 ML IV PRN (05:20)
[2016-09-21 06:05] LABS: ABSOLUTE BASOPHILS # (AUTO) 0.1 10^3/uL (0.0-0.2); ABSOLUTE EOSINOPHILS # (AUTO) 0.3 10^3/uL (0.0-0.6); ABSOLUTE LYMPHOCYTES (AUTO) 1.7 10^3/uL (0.5-4.7); ABSOLUTE MONOCYTES (AUTO) 1.2 10^3/uL (0.1-1.4); ABSOLUTE NEUT (AUTO) 7.2 10^3/uL (1.7-8.2); BASOPHILS % (AUTO) 0.8 % (0-2); EOSINOPHILS % (AUTO) 2.6 % (0-6); HEMOGLOBIN 8.8 g/dL (12.0-15.5); HGB HCT DIFFERENCE -1.6; LYMPHOCYTES % (AUTO) 16.4 % (13-45); MEAN CORPUSCULAR HEMOGLOBIN 25.7 pg (27.0-33.4); MEAN CORPUSCULAR HGB CONC 31.2 g/dL (32.0-36.0); MEAN CORPUSCULAR VOLUME 82 fl (80-97); MONOCYTES % (AUTO) 11.1 % (3-13); RED CELL DISTRIBUTION WIDTH 19.5 % (11.5-14.0); SEGMENTED NEUTROPHILS % (AUTO) 69.1 % (42-78); WHITE BLOOD COUNT 10.4 10^3/uL (4.0-10.5)
[2016-09-21 06:21] LABS: ALANINE AMINOTRANSFERASE 48 U/L (9-52); ALBUMIN 3.3 g/dL (3.5-5.0); ALKALINE PHOSPHATASE 147 U/L (38-126); ANION GAP 10 (5-19); ASPARTATE AMINO TRANSFERASE 43 U/L (14-36); BILIRUBIN,DIRECT 0.4 mg/dL (0.0-0.4); BILIRUBIN,TOTAL 0.5 mg/dL (0.2-1.3); BLOOD UREA NITROGEN 8 mg/dL (7-20); CALCIUM 9.9 mg/dL (8.4-10.2); CARBON DIOXIDE 27 mmol/L (22-30); CHLORIDE 104 mmol/L (98-107); CREATININE RESULT 0.74 mg/dL (0.52-1.25); GLUCOSE 233 mg/dL (75-110); POTASSIUM 4.1 mmol/L (3.6-5.0); SODIUM 140.7 mmol/L (137-145); TOTAL PROTEIN 7.3 g/dL (6.3-8.2)
[2016-09-21] MEDS: ENOXAPARIN SODIUM INJ 40 MG/0.4 ML DISP.SYRIN SUBCUT SCH (10:00)
--- NOTE | 2016-09-21 14:37 | CONSULTATION REPORT E ---
Consultation Report NAME: TRELL ISLAS : 1945 AGE: 70Y DATE: 09/21/2016 ROOM: 313 A TO: JARRETT JIMENES M.D. FROM: DAVID NORTON M.D. Requesting Physician REASON FOR REFERRAL: Probable colon cancer. CONSULTATION REPORT: The patient is a 70-year-old woman who was admitted into the hospital with complaints of lower abdominal pain. She had a CT scan of the abdomen done that unfortunately showed suspicious liver lesions. She had a colonoscopy done that showed multiple polyps involving her transverse and descending colon, proximal ascending colon mass, multiple large polyps in the cecum. A biopsy was done, results pending. She states that her abdominal pain started a few days ago. She has no chest pain. She also noticed blood in her stool, sometimes large. PAST MEDICAL HISTORY: Includes a history of diabetes, high blood pressure, hyperlipidemia. FAMILY HISTORY: Reviewed but nothing significant. PHYSICAL EXAMINATION: GENERAL: On exam she is an elderly woman. She is not acutely ill looking. ABDOMEN: Soft. Liver and spleen not palpably enlarged. EXTREMITIES: No edema. DIAGNOSTIC STUDIES: Her labs 09/19; white count was 16.5, hemoglobin 8.1, platelet count 214. Alk-phos 147. She had a chest x-ray done; poor inspiration without evidence of acute cardiopulmonary disease. Abdomen and pelvic CT findings worrisome for metastatic disease of the liver, lymph nodes in the right lower quadrant and a posterior wall ascending colon lesion. IMPRESSION AND PLAN: The patient is a 70-year-old woman who probably has metastatic colon cancer. Pathology from the colon mass biopsy is pending. I had a long discussion with her as well as her daughter at the bedside, I explained the findings on the colonoscopy in addition to the CT scan findings. I explained that she most probable has colon cancer with metastasis to the liver and this will be stage IV colon cancer. I explained that surgery would only be indicated if she has an obstructing mass or any obstructing mass. I explained the role of systemic chemotherapy, which is mainly palliative. However, with good response the median survival could be as much as 3 years. She is willing to receive chemotherapy, I explained that she would need to be stage with a PET CT which can be obtained as an outpatient. She would also benefit from a Port-A-Cath placement, it would be helpful if this can be placed while on this hospitalization. I reviewed chemotherapy regimens with them and I will discuss further as an outpatient. I will recommend obtaining a serum ferritin and also starting either on oral iron or IV iron to help improve her hemoglobin as she most probably is iron deficient. I thank you for this consultation and allowing me to be part of her care. DICTATING PHYSICIAN: JARRETT JIMENES M.D. [id number] [id number] ID: [id number] JOB#: [id number] ACCT: [id number] cc:JARRETT JIMENES M.D. >
[2016-09-21] MEDS: FERROUS SULFATE 325 MG TABLET PO SCH (17:49)
[2016-09-21] MEDS: ASCORBIC ACID 500 MG TABLET PO SCH (17:49)
--- NOTE | 2016-09-21 17:54 | PDOC PROGRESS REPORT ---
Subjective Progress Note for:: 09/21/16 Subjective:: No chest pain or difficulty with breathing. S/P EGD and colonoscopy that revealed normal EGD and ascending colon multiple polyps and significant mass. No nausea, vomiting or abdominal pain. No fever or chills. Currently on IV Unasyn and Metronidazole coverage. Physical Exam Vital Signs: Temp Pulse Resp BP Pulse Ox 98.7 F 89 20 130/60 H 98 09/21/16 15:38 09/21/16 15:38 09/21/16 15:38 09/21/16 15:38 09/21/16 15:38 Intake & Output 09/20/16 09/21/16 09/22/16 06:59 06:59 06:59 Intake Total 5800 2425 460 Output Total 400 0 100 Balance 5400 2425 360 Weight 105.3 kg Physical Exam: General appearance: PRESENT: no acute distress, cooperative, obese Head exam: PRESENT: atraumatic, normocephalic Eye exam: PRESENT: conjunctiva pink, EOMI, PERRLA. ABSENT: scleral icterus Mouth exam: PRESENT: moist Teeth exam: PRESENT: poor dentation Respiratory exam: PRESENT: clear to auscultation bilaterally. Cardiovascular exam: PRESENT: RRR. ABSENT: diastolic murmur, rubs, systolic murmur GI/Abdominal exam: PRESENT: normal bowel sounds, soft. ABSENT: distended, guarding, mass, organomegaly, rebound, tenderness Extremities exam: ABSENT: pedal edema Musculoskeletal exam: PRESENT: deformity - related to multiple joints involvement with arthritis Neurological exam: PRESENT: alert, awake, oriented to person, oriented to place , oriented to time, oriented to situation, CN II-XII grossly intact. ABSENT: motor sensory deficit Psychiatric exam: PRESENT: appropriate affect, normal mood. ABSENT: homicidal ideation, suicidal ideation Skin exam: PRESENT: dry, intact, warm. ABSENT: cyanosis, rash. Results Laboratory Results: 09/21/16 04:53 09/21/16 04:53 09/20/16 09/20/16 09/21/16 06:30 06:30 04:53 WBC 10.4 RBC 3.40 L Hgb 8.8 L Hct 28.0 L MCV 82 MCH 25.7 L MCHC 31.2 L RDW 19.5 H Plt Count 276 Seg Neutrophils % 69.1 Lymphocytes % 16.4 Monocytes % 11.1 Eosinophils % 2.6 Basophils % 0.8 Absolute Neutrophils 7.2 Absolute Lymphocytes 1.7 Absolute Monocytes 1.2 Absolute Eosinophils 0.3 Absolute Basophils 0.1 Retic Count (auto) 0.99 Absolute Retic 0.033 Sodium Potassium Chloride Carbon Dioxide Anion Gap BUN Creatinine Est GFR ( Amer) Est GFR (Non-Af Amer) Glucose Calcium Iron 12.0 L TIBC 268 % Saturation 4 Ferritin 83.90 Total Bilirubin AST ALT Alkaline Phosphatase Total Protein Albumin Vitamin B12 790.0 Folate 14.10 09/21/16 04:53 WBC RBC Hgb Hct MCV MCH MCHC RDW Plt Count Seg Neutrophils % Lymphocytes % Monocytes % Eosinophils % Basophils % Absolute Neutrophils Absolute Lymphocytes Absolute Monocytes Absolute Eosinophils Absolute Basophils Retic Count (auto) Absolute Retic Sodium 140.7 Potassium 4.1 Chloride 104 Carbon Dioxide 27 Anion Gap 10 BUN 8 Creatinine 0.74 Est GFR ( Amer) > 60 Est GFR (Non-Af Amer) > 60 Glucose 233 H Calcium 9.9 Iron TIBC % Saturation Ferritin Total Bilirubin 0.5 AST 43 H ALT 48 Alkaline Phosphatase 147 H Total Protein 7.3 Albumin 3.3 L Vitamin B12 Folate Impressions: Chest X-Ray 09/18/16 13:56 IMPRESSION: Poor inspiration without evidence of acute cardiopulmonary disease. Abdomen/Pelvis CT 09/18/16 15:19 IMPRESSION: Findings worrisome for metastatic disease to the liver, malignant lymph nodes of the right lower quadrant, and a posterior wall ascending colon malignancy Assessment & Plan - Diagnosis (1) Infected dental carries Is this a current diagnosis for this admission?: YesPlan: Maintain on IV Unasyn and Metronidazole coverage. Continue IV fluid support. (2) Abdominal pain Qualifiers: Abdominal location: right lower quadrant Qualified Code(s): R10.31 - Right lower quadrant pain Is this a current diagnosis for this admission?: YesPlan: Resolved presently. 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 (4) HTN (hypertension) Qualifiers: Hypertension type: essential hypertension Qualified Code(s): I10 - Essential (primary) hypertension Is this a current diagnosis for this admission?: YesPlan: See attending physician orders. (5) HLD (hyperlipidemia) Qualifiers: Hyperlipidemia type: pure hypercholesterolemia Qualified Code(s): E78.00 - Pure hypercholesterolemia, unspecified; E78.0 - Pure hypercholesterolemia Is this a current diagnosis for this admission?: YesPlan: See attending physician orders. (6) Obesity with body mass index (BMI) of 30.0 to 39.9 Is this a current diagnosis for this admission?: YesPlan: See attending physician orders. - Time Time Spent with patient: 35 or more minutes Medications reviewed and adjusted accordingly: Yes Anticipated discharge: Home Within: Other - Inpatient Certification Medical Necessity: Need Close Monitoring Due to Risk of Patient Decompensation, Need For IV Fluids, Need For Continuous Telemetry Monitoring, Need for IV Antibiotics, Risk of Complication if Not Cared For in Hospital Post Hospital Care: D/C Last Dipper Documentation - Plan Summary Plan Summary: See attending physician orders. Follow up on blood culture findings. If her blood culture is no growth x 5 days will consider port-a-cath placement before discharge home next week. I had extensive discussion with patient regarding care plan and possible port-a-cath placement before discharge.
[2016-09-21] MEDS: HUM INSULIN NPH/REG INSULIN HM 100 UNIT/1 ML 3 ML SUBCUT SCH (18:32)
[2016-09-21] MEDS: EZETIMIBE 10 MG TABLET PO SCH (20:53)
[2016-09-22] MEDS: METRONIDAZOLE 500 MG/NS RTU 100 ML IV SCH ×4 (03:26→21:12)
[2016-09-22] MEDS: AMPICILLIN SODIUM/SULBACTAM NA 3 GM in NORMAL SALINE 100 ML IV SCH ×3 (05:44→17:27)
[2016-09-22] MEDS: LANSOPRAZOLE 30 MG TAB.RAP.DR PO SCH (05:45)
[2016-09-22] MEDS: ASCORBIC ACID 500 MG TABLET PO SCH ×2 (09:06→17:27)
[2016-09-22] MEDS: METFORMIN HCL 500 MG TABLET PO SCH ×2 (09:06→17:27)
[2016-09-22] MEDS: FERROUS SULFATE 325 MG TABLET PO SCH ×2 (09:07→17:27)
[2016-09-22] MEDS: LOSARTAN POTASSIUM 50 MG TABLET PO SCH (09:07)
[2016-09-22] MEDS: ENOXAPARIN SODIUM INJ 40 MG/0.4 ML DISP.SYRIN SUBCUT SCH (09:08)
[2016-09-22] MEDS: HUM INSULIN NPH/REG INSULIN HM 100 UNIT/1 ML 3 ML SUBCUT SCH ×2 (09:17→17:35)
[2016-09-22] MEDS ORDERED: (PENDING PHARMACY ID) (Irbesartan [Irbesartan] 300 MG) PO SCH (10:00)
[2016-09-22] MEDS: ACETAMINOPHEN 325 MG TABLET PO PRN (11:12)
[2016-09-22] MEDS: INSULIN LISPRO 100 UNIT/ML 3 ML VIAL SUBCUT PRN (11:46)
--- NOTE | 2016-09-22 15:59 | PDOC PROGRESS REPORT ---
Subjective Progress Note for:: 09/22/16 Subjective:: Patient was seen by the bedside, presented diagnosed with stage IV colon cancer Physical Exam Vital Signs: Temp Pulse Resp BP Pulse Ox 98.8 F 94 20 143/65 H 95 09/22/16 10:58 09/22/16 14:00 09/22/16 10:58 09/22/16 10:58 09/22/16 10:58 Intake & Output 09/21/16 09/22/16 09/23/16 06:59 06:59 06:59 Intake Total 2425 3205 222 Output Total 0 400 Balance 2425 2805 222 Weight 105.3 kg 107.3 kg General appearance: PRESENT: no acute distress Eye exam: PRESENT: PERRLA Respiratory exam: PRESENT: clear to auscultation [place] Cardiovascular exam: PRESENT: +S1, +S2 GI/Abdominal exam: PRESENT: soft Neurological exam: PRESENT: alert Results Laboratory Results: 09/21/16 04:53 09/21/16 04:53 09/20/16 09/22/16 06:30 02:35 Transferrin 198 L Stool Occult Blood POSITIVE Impressions: Chest X-Ray 09/18/16 13:56 IMPRESSION: Poor inspiration without evidence of acute cardiopulmonary disease. Abdomen/Pelvis CT 09/18/16 15:19 IMPRESSION: Findings worrisome for metastatic disease to the liver, malignant lymph nodes of the right lower quadrant, and a posterior wall ascending colon malignancy Assessment & Plan - Diagnosis (1) Colon cancer metastasized to liver Is this a current diagnosis for this admission?: YesPlan: Continue treatment
[2016-09-22] MEDS: NORMAL SALINE 1000 ML 1,000 ML IV PRN (17:28)
[2016-09-22] MEDS: EZETIMIBE 10 MG TABLET PO SCH (21:12)
[2016-09-23] MEDS: AMPICILLIN SODIUM/SULBACTAM NA 3 GM in NORMAL SALINE 100 ML IV SCH ×5 (00:02→23:34)
[2016-09-23] MEDS: NORMAL SALINE 1000 ML 1,000 ML IV PRN (00:06)
[2016-09-23] MEDS: METRONIDAZOLE 500 MG/NS RTU 100 ML IV SCH ×4 (02:06→21:12)
[2016-09-23] MEDS: LANSOPRAZOLE 30 MG TAB.RAP.DR PO SCH (05:30)
[2016-09-23] MEDS: METFORMIN HCL 500 MG TABLET PO SCH ×2 (07:28→17:19)
[2016-09-23] MEDS: HUM INSULIN NPH/REG INSULIN HM 100 UNIT/1 ML 3 ML SUBCUT SCH ×2 (07:35→17:23)
[2016-09-23] MEDS: LOSARTAN POTASSIUM 50 MG TABLET PO SCH (09:30)
[2016-09-23] MEDS: FERROUS SULFATE 325 MG TABLET PO SCH ×2 (09:30→17:18)
[2016-09-23] MEDS: ASCORBIC ACID 500 MG TABLET PO SCH ×2 (09:30→17:18)
[2016-09-23] MEDS: ENOXAPARIN SODIUM INJ 40 MG/0.4 ML DISP.SYRIN SUBCUT SCH (09:31)
--- NOTE | 2016-09-23 12:15 | PDOC PROGRESS REPORT ---
Subjective Progress Note for:: 09/23/16 Subjective:: Patient was seen by the bedside, presented diagnosed with stage IV colon cancer Physical Exam Vital Signs: Temp Pulse Resp BP Pulse Ox 98.6 F 86 20 144/57 H 96 09/23/16 07:02 09/23/16 07:02 09/23/16 07:02 09/23/16 07:02 09/23/16 07:02 Intake & Output 09/22/16 09/23/16 09/24/16 06:59 06:59 06:59 Intake Total 3205 4595 Output Total 400 100 Balance 2805 4495 Weight 107.3 kg 108.2 kg General appearance: PRESENT: no acute distress Eye exam: PRESENT: PERRLA Respiratory exam: PRESENT: clear to auscultation [place] Cardiovascular exam: PRESENT: +S1, +S2 GI/Abdominal exam: PRESENT: soft Results Laboratory Results: 09/21/16 04:53 09/21/16 04:53 Impressions: Chest X-Ray 09/18/16 13:56 IMPRESSION: Poor inspiration without evidence of acute cardiopulmonary disease. Abdomen/Pelvis CT 09/18/16 15:19 IMPRESSION: Findings worrisome for metastatic disease to the liver, malignant lymph nodes of the right lower quadrant, and a posterior wall ascending colon malignancy Assessment & Plan - Diagnosis (1) Colon cancer metastasized to liver Is this a current diagnosis for this admission?: YesPlan: Continue treatment
[2016-09-23 12:42] LABS: ABSOLUTE BASOPHILS # (AUTO) 0.1 10^3/uL (0.0-0.2); ABSOLUTE EOSINOPHILS # (AUTO) 0.6 10^3/uL (0.0-0.6); ABSOLUTE LYMPHOCYTES (AUTO) 2.4 10^3/uL (0.5-4.7); ABSOLUTE MONOCYTES (AUTO) 1.2 10^3/uL (0.1-1.4); ABSOLUTE NEUT (AUTO) 10.2 10^3/uL (1.7-8.2); BASOPHILS % (AUTO) 0.7 % (0-2); EOSINOPHILS % (AUTO) 4.1 % (0-6); HEMATOCRIT 29.8 % (36.0-47.0); HEMOGLOBIN 9.1 g/dL (12.0-15.5); HGB HCT DIFFERENCE -2.5; LYMPHOCYTES % (AUTO) 16.8 % (13-45); MEAN CORPUSCULAR HEMOGLOBIN 25.1 pg (27.0-33.4); MEAN CORPUSCULAR HGB CONC 30.7 g/dL (32.0-36.0); MEAN CORPUSCULAR VOLUME 82 fl (80-97); RED BLOOD COUNT 3.64 10^6/uL (3.72-5.28); RED CELL DISTRIBUTION WIDTH 20.1 % (11.5-14.0); SEGMENTED NEUTROPHILS % (AUTO) 70.4 % (42-78); WHITE BLOOD COUNT 14.5 10^3/uL (4.0-10.5)
[2016-09-23 12:57] LABS: ALANINE AMINOTRANSFERASE 38 U/L (9-52); ALBUMIN 3.2 g/dL (3.5-5.0); ALKALINE PHOSPHATASE 153 U/L (38-126); ANION GAP 9 (5-19); ASPARTATE AMINO TRANSFERASE 32 U/L (14-36); BILIRUBIN,DIRECT 0.4 mg/dL (0.0-0.4); BILIRUBIN,TOTAL 0.7 mg/dL (0.2-1.3); BLOOD UREA NITROGEN 3 mg/dL (7-20); CALCIUM 10.3 mg/dL (8.4-10.2); CARBON DIOXIDE 29 mmol/L (22-30); CHLORIDE 103 mmol/L (98-107); CREATININE RESULT 0.62 mg/dL (0.52-1.25); GLUCOSE 139 mg/dL (75-110); POTASSIUM 3.9 mmol/L (3.6-5.0); SODIUM 141.1 mmol/L (137-145); TOTAL PROTEIN 7.1 g/dL (6.3-8.2)
[2016-09-23] MEDS: EZETIMIBE 10 MG TABLET PO SCH (21:12)
[2016-09-23] MEDS: BENZONATATE 100 MG CAPSULE PO SCH (21:12)
[2016-09-24] MEDS: METRONIDAZOLE 500 MG/NS RTU 100 ML IV SCH ×2 (03:32→08:46)
[2016-09-24] MEDS: LANSOPRAZOLE 30 MG TAB.RAP.DR PO SCH (05:09)
[2016-09-24] MEDS: AMPICILLIN SODIUM/SULBACTAM NA 3 GM in NORMAL SALINE 100 ML IV SCH ×4 (05:09→23:40)
[2016-09-24] MEDS: BENZONATATE 100 MG CAPSULE PO SCH ×3 (05:09→21:34)
[2016-09-24] MEDS: METFORMIN HCL 500 MG TABLET PO SCH ×2 (08:45→17:34)
[2016-09-24] MEDS: FERROUS SULFATE 325 MG TABLET PO SCH ×2 (08:45→17:34)
[2016-09-24] MEDS: HUM INSULIN NPH/REG INSULIN HM 100 UNIT/1 ML 3 ML SUBCUT SCH (08:46)
[2016-09-24] MEDS: ASCORBIC ACID 500 MG TABLET PO SCH ×2 (08:46→17:34)
[2016-09-24] MEDS: ENOXAPARIN SODIUM INJ 40 MG/0.4 ML DISP.SYRIN SUBCUT SCH (10:28)
[2016-09-24] MEDS: LOSARTAN POTASSIUM 50 MG TABLET PO SCH (10:28)
[2016-09-24] MEDS: METRONIDAZOLE 500 MG TABLET PO SCH ×2 (15:09→20:49)
--- NOTE | 2016-09-24 18:52 | PDOC PROGRESS REPORT ---
Subjective Progress Note for:: 09/24/16 Subjective:: Patient demonstrated episodes of hypoglycemia today. Insulin therapy on hold so far. Colon mass biopsy was reported as adenocarcinoma. No chest or difficulty with breathing. No nausea, vomiting or abdominal pain. No fever or chills. Currently on IV Unasyn and Metronidazole coverage. Physical Exam Vital Signs: Temp Pulse Resp BP Pulse Ox 98.4 F 91 18 159/76 H 97 09/24/16 11:27 09/24/16 11:27 09/24/16 11:27 09/24/16 11:27 09/24/16 11:27 Intake & Output 09/23/16 09/24/16 09/25/16 06:59 06:59 06:59 Intake Total 4589 2673 237 Output Total 100 475 Balance 4495 2198 237 Weight 108.2 kg 105 kg Physical Exam: General appearance: PRESENT: no acute distress, cooperative, obese Head exam: PRESENT: atraumatic, normocephalic Eye exam: PRESENT: conjunctiva pink, EOMI, PERRLA. ABSENT: scleral icterus Mouth exam: PRESENT: moist Teeth exam: PRESENT: poor dentition Respiratory exam: PRESENT: clear to auscultation bilaterally. Cardiovascular exam: PRESENT: RRR. ABSENT: diastolic murmur, rubs, systolic murmur GI/Abdominal exam: PRESENT: normal bowel sounds, soft. ABSENT: distended, guarding, mass, organomegaly, rebound, tenderness Extremities exam: ABSENT: pedal edema Musculoskeletal exam: PRESENT: deformity - related to multiple joints involvement with arthritis Neurological exam: PRESENT: alert, awake, oriented to person, oriented to place , oriented to time, oriented to situation, CN II-XII grossly intact. ABSENT: motor sensory deficit Psychiatric exam: PRESENT: appropriate affect, normal mood. ABSENT: homicidal ideation, suicidal ideation Skin exam: PRESENT: dry, intact, warm. ABSENT: cyanosis, rash. Results Laboratory Results: 09/23/16 12:37 09/23/16 12:37 Impressions: Chest X-Ray 09/18/16 13:56 IMPRESSION: Poor inspiration without evidence of acute cardiopulmonary disease. Abdomen/Pelvis CT 09/18/16 15:19 IMPRESSION: Findings worrisome for metastatic disease to the liver, malignant lymph nodes of the right lower quadrant, and a posterior wall ascending colon malignancy Assessment & Plan - Diagnosis (1) Infected dental carries Is this a current diagnosis for this admission?: YesPlan: There is persistent leukocytosis. Continue IV Unasyn and Metronidazole coverage. (2) Abdominal pain Qualifiers: Abdominal location: right lower quadrant Qualified Code(s): R10.31 - Right lower quadrant pain Is this a current diagnosis for this admission?: YesPlan: Resolved and most likely related to her ascending colon metastatic adenocarcinoma. 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 (4) HTN (hypertension) Qualifiers: Hypertension type: essential hypertension Qualified Code(s): I10 - Essential (primary) hypertension Is this a current diagnosis for this admission?: YesPlan: Continue on current medication management. (5) HLD (hyperlipidemia) Qualifiers: Hyperlipidemia type: pure hypercholesterolemia Qualified Code(s): E78.00 - Pure hypercholesterolemia, unspecified; E78.0 - Pure hypercholesterolemia Is this a current diagnosis for this admission?: YesPlan: Continue on current medication management. (6) Obesity with body mass index (BMI) of 30.0 to 39.9 Is this a current diagnosis for this admission?: YesPlan: Continue on current medication management. (7) Adenocarcinoma of colon metastatic to liver Is this a current diagnosis for this admission?: YesPlan: Patient pathology reported confirmed adenocarcinoma. In view of the CT scan findings suggestive of metastatic disease. I will request for surgical input regarding placement of Port-a-cath since blood culture has been no growth x 5 days. She will be schedule for outpatient PET scan evaluation upon discharge. - Time Time Spent with patient: 35 or more minutes Medications reviewed and adjusted accordingly: Yes Anticipated discharge: Home Within: Other - Inpatient Certification Medical Necessity: Need Close Monitoring Due to Risk of Patient Decompensation, Need For IV Fluids, Need For Continuous Telemetry Monitoring, Need for IV Antibiotics, Risk of Complication if Not Cared For in Hospital Post Hospital Care: D/C Sponge Packer Documentation - Plan Summary Plan Summary: I had extensive discussion with patient and daughter regarding pathology findings and care plan with intent to seek surgical input fpor port-a-cath placement and subsequent discharge in next 24-48 hours if her clinical condition remain stable.
[2016-09-24] MEDS: EZETIMIBE 10 MG TABLET PO SCH (21:32)
[2016-09-25] MEDS: METRONIDAZOLE 500 MG TABLET PO SCH ×4 (03:19→21:05)
[2016-09-25 04:57] LABS: ABSOLUTE BASOPHILS # (AUTO) 0.1 10^3/uL (0.0-0.2); ABSOLUTE EOSINOPHILS # (AUTO) 0.5 10^3/uL (0.0-0.6); ABSOLUTE MONOCYTES (AUTO) 1.2 10^3/uL (0.1-1.4); ABSOLUTE NEUT (AUTO) 8.5 10^3/uL (1.7-8.2); BASOPHILS % (AUTO) 0.9 % (0-2); EOSINOPHILS % (AUTO) 3.8 % (0-6); HEMATOCRIT 29.4 % (36.0-47.0); HEMOGLOBIN 8.9 g/dL (12.0-15.5); HGB HCT DIFFERENCE -2.7; MEAN CORPUSCULAR HGB CONC 30.2 g/dL (32.0-36.0); MEAN CORPUSCULAR VOLUME 83 fl (80-97); MONOCYTES % (AUTO) 9.5 % (3-13); RED BLOOD COUNT 3.55 10^6/uL (3.72-5.28); RED CELL DISTRIBUTION WIDTH 20.8 % (11.5-14.0); SEGMENTED NEUTROPHILS % (AUTO) 69.8 % (42-78); WHITE BLOOD COUNT 12.2 10^3/uL (4.0-10.5)
[2016-09-25 05:12] LABS: ALANINE AMINOTRANSFERASE 32 U/L (9-52); ALKALINE PHOSPHATASE 138 U/L (38-126); ANION GAP 8 (5-19); ASPARTATE AMINO TRANSFERASE 29 U/L (14-36); BILIRUBIN,DIRECT 0.3 mg/dL (0.0-0.4); BILIRUBIN,TOTAL 0.9 mg/dL (0.2-1.3); BLOOD UREA NITROGEN 4 mg/dL (7-20); CALCIUM 10.4 mg/dL (8.4-10.2); CARBON DIOXIDE 30 mmol/L (22-30); CHLORIDE 104 mmol/L (98-107); CREATININE RESULT 0.71 mg/dL (0.52-1.25); GLUCOSE 184 mg/dL (75-110); POTASSIUM 4.6 mmol/L (3.6-5.0); SODIUM 141.9 mmol/L (137-145); TOTAL PROTEIN 6.6 g/dL (6.3-8.2)
[2016-09-25] MEDS: LANSOPRAZOLE 30 MG TAB.RAP.DR PO SCH (05:18)
[2016-09-25] MEDS: BENZONATATE 100 MG CAPSULE PO SCH ×4 (05:18→21:07)
[2016-09-25] MEDS: AMPICILLIN SODIUM/SULBACTAM NA 3 GM in NORMAL SALINE 100 ML IV SCH ×4 (05:24→23:49)
[2016-09-25] MEDS ORDERED: DEXTROSE 5%-NORMAL SALINE 1,000 ML IV PRN (08:36)
[2016-09-25] MEDS: HUM INSULIN NPH/REG INSULIN HM 100 UNIT/1 ML 3 ML SUBCUT SCH ×2 (10:01→17:30)
[2016-09-25] MEDS: FERROUS SULFATE 325 MG TABLET PO SCH ×2 (10:05→18:20)
[2016-09-25] MEDS: ASCORBIC ACID 500 MG TABLET PO SCH ×2 (10:05→18:20)
[2016-09-25] MEDS: METFORMIN HCL 500 MG TABLET PO SCH ×2 (10:24→18:20)
[2016-09-25] MEDS: LOSARTAN POTASSIUM 50 MG TABLET PO SCH (10:25)
[2016-09-25] MEDS ORDERED: METRONIDAZOLE 500 MG/NS RTU 100 ML IV ONE (11:00)
[2016-09-25] MEDS ORDERED: LIDOCAINE 1% INJ-PF (10 MG/ML) 30 ML SDV ONE (13:43)
[2016-09-25] MEDS ORDERED: MIDAZOLAM 2 MG/2 ML INJ ONE (13:51)
[2016-09-25] MEDS ORDERED: PROPOFOL INJ 200 MG/20 ML VIAL IV ONE (13:52)
[2016-09-25] MEDS ORDERED: MEPERIDINE HCL/PF INJ 25 MG/1 ML DISP.SYRIN IV PRN (14:43)
[2016-09-25] MEDS ORDERED: OXYCODONE-ACETAMINOPHEN 5-325 MG TABLET PO PRN ×3 (14:43→16:00)
[2016-09-25] MEDS ORDERED: FENTANYL CITRATE INJ/PF 100 MCG/2 ML AMPUL IV PRN ×3 (14:43)
[2016-09-25] MEDS ORDERED: MORPHINE SULFATE 10 MG/ML INJ IV PRN (14:43)
[2016-09-25] MEDS ORDERED: PROMETHAZINE HCL INJ 25 MG/1 ML VIAL IV PRN ×2 (14:43)
[2016-09-25] MEDS ORDERED: DIPHENHYDRAMINE HCL 50 MG/ML VIAL IV PRN (14:43)
--- NOTE | 2016-09-25 16:18 | RADIOLOGY REPORT (SQ) ---
EXAM DESCRIPTION: CHEST SINGLE VIEW COMPLETED DATE/TIME: 09/25/2016 4:05 pm REASON FOR STUDY: POST OP PACU COMPARISON: AP chest 08/20/2016 EXAM PARAMETERS: NUMBER OF VIEWS: One view. TECHNIQUE: Single frontal radiographic view of the chest acquired. RADIATION DOSE: NA LIMITATIONS: None. FINDINGS: LUNGS AND PLEURA: No opacities, masses or pneumothorax. No pleural effusion. MEDIASTINUM AND HILAR STRUCTURES: No masses. Contour normal. HEART AND VASCULAR STRUCTURES: Mild cardiomegaly BONES: No acute findings. HARDWARE: Narrow right-sided permanent central line tip superior vena cava. No pneumothorax. OTHER: No other significant finding. IMPRESSION: No pneumothorax post right permanent central line placement with the tip in the superior vena cava. TECHNICAL DOCUMENTATION: JOB ID: [id number]
--- NOTE | 2016-09-25 16:45 | RADIOLOGY REPORT (SQ) ---
EXAM DESCRIPTION: FLUORO/CV PLACEMENT COMPLETED DATE/TIME: 09/25/2016 3:42 pm REASON FOR STUDY: PORTACATH COMPARISON: AP chest 09/18/2016 FLUOROSCOPY TIME: 2.7 minutes Multiple cine fluoro images saved to PACS. TECHNIQUE: Intra-operative images acquired during surgical procedure to evaluate progress. NUMBER OF IMAGES: Cine fluoroscopic images. LIMITATIONS: None. FINDINGS: Intra procedural imaging and fluoro during central venous catheter placement by the toyin griffin in the operating room. IMPRESSION: Intra procedural imaging and fluoro COMMENT: Quality ID [id number]: Final reports for procedures using fluoroscopy that document radiation exp osure indices, or exposure time and number of fluorographic images (if radiation exposure indices are not available) Please consult full operative report of the attending physician for description of the procedure. TECHNICAL DOCUMENTATION: JOB ID: [id number] [employer]- All Rights Reserved
--- NOTE | 2016-09-25 16:52 | OPERATIVE REPORT E ---
Operative Report NAME: TRELL ISLAS : 1945 AGE: 70Y DATE OF SURGERY: 09/25/2016 ROOM: 304 PREOPERATIVE DIAGNOSIS: Patient with carcinoma with metastasis, needed IV access for chemotherapy. POSTOPERATIVE DIAGNOSIS: Patient with carcinoma with metastasis, needed IV access for chemotherapy. OPERATION: Insertion of Port-a-Cath in the left internal jugular vein. SURGEON: JIMBO MORALES M.D. ANESTHESIA: Local MAC. INDICATION: This is a 70-year-old female who needed IV access for chemotherapy. The patient has metastatic carcinoma. DESCRIPTION OF PROCEDURE: The patient placed in supine position and the left neck and chest were then prepped and draped in the usual sterile fashion. IV sedation was given. Next, local anesthesia infiltrated along the left neck and on the left anterior chest. Local anesthesia was also infiltrated subcutaneous path between the potential neck incision and the chest incisions. Next, with the sterile ultrasound, the internal jugular vein was identified and subsequently punctured and guidewire passed through the needle into the superior vena cava under fluoroscopy. The guidewire initially appeared to be going back into the internal jugular vein and this was subsequently pulled back slowly and then redirected into the superior vena cava with the use of fluoroscopy. Next, incision made over the puncture site about 1.5 cm. Next, another incision made over the right anterior chest wall above the breast area where it was anesthetized and about a 2.5 cm long incision was made. An area just under the skin was dissected just below the incision and just above it. This was done to prepare for the housing of the Port-a-Cath. Next, a Port-a-Cath was then threaded from the chest incision to the neck incision underneath the skin. Next, the catheter was subsequently disconnected from the *------* connector tunneler. Next, a dilator and sheath were passed over the guidewire into the superior vena cava. The guidewire and dilator subsequently pulled out of the sheath and catheter was then inserted into the sheath towards the superior vena cava. The sheath was subsequently pulled out on its end and subsequently removed around the catheter. The catheter was positioned in an appropriate location between the right atrium and superior vena cava on fluoroscopy. Next, the other end of the catheter about the 24 cm kristina was subsequently divided and a Port-a-Cath housing connected to it. It was then placed under the skin and the Port-a-Cath subsequently accessed through the skin with a Uber needle and blood could easily be aspirated and heparin could be injected easily. Next, the skin incision on the right chest wall was subsequently reapproximated with 2-0 Vicryl. The skin was then closed with a running suture using 4-0 Vicryl undyed. The neck incision was then closed with 4-0 Vicryl undyed in a subcuticular manner. Sterile dressings were then placed. The patient tolerated the procedure well. [place], instruments and sponge counts were all correct times 3. Estimated blood loss was about 20 mL. The patient was brought to the recovery room in satisfactory condition. DICTATING PHYSICIAN: JIMBO MORALES M.D. [id number] PHY#: [id number] ID: [id number] JOB#: [id number] ACCT: [id number] cc:JIMBO MORALES M.D. >
--- NOTE | 2016-09-25 17:53 | PDOC PROGRESS REPORT ---
Subjective Progress Note for:: 09/25/16 Subjective:: Patient is s/p right internal jugular vein approach port-a-cath placement. Her accuchek have been slightly elevated so far today. She will resume oral feeding following NPO status for her procedure. No chest or difficulty with breathing. No nausea, vomiting or abdominal pain. No fever or chills. Currently on IV Unasyn and oral Metronidazole coverage. Physical Exam Vital Signs: Temp Pulse Resp BP Pulse Ox 98.7 F 91 19 175/81 H 96 09/25/16 16:49 09/25/16 16:49 09/25/16 16:49 09/25/16 16:49 09/25/16 16:49 Intake & Output 09/24/16 09/25/16 09/26/16 06:59 06:59 06:59 Intake Total 2673 2324 550 Output Total 475 1400 102 Balance 2198 924 448 Weight 105 kg 103.9 kg Physical Exam: General appearance: PRESENT: no acute distress, cooperative, obese Head exam: PRESENT: atraumatic, normocephalic Eye exam: PRESENT: conjunctiva pink, EOMI, PERRLA. ABSENT: scleral icterus Mouth exam: PRESENT: moist Teeth exam: PRESENT: poor dentition Respiratory exam: PRESENT: clear to auscultation bilaterally. Cardiovascular exam: PRESENT: RRR. ABSENT: diastolic murmur, rubs, systolic murmur GI/Abdominal exam: PRESENT: normal bowel sounds, soft. ABSENT: distended, guarding, mass, organomegaly, rebound, tenderness Extremities exam: ABSENT: pedal edema Musculoskeletal exam: PRESENT: deformity - related to multiple joints involvement with arthritis Neurological exam: PRESENT: alert, awake, oriented to person, oriented to place , oriented to time, oriented to situation, CN II-XII grossly intact. ABSENT: motor sensory deficit Psychiatric exam: PRESENT: appropriate affect, normal mood. ABSENT: homicidal ideation, suicidal ideation Skin exam: PRESENT: dry, intact, warm. Right neck region surgical site satisfactory. ABSENT: cyanosis, rash. Results Laboratory Results: 09/25/16 04:42 09/25/16 04:42 09/25/16 09/25/16 04:42 04:42 WBC 12.2 H RBC 3.55 L Hgb 8.9 L Hct 29.4 L MCV 83 MCH 25.0 L MCHC 30.2 L RDW 20.8 H Plt Count 519 H Seg Neutrophils % 69.8 Lymphocytes % 16.0 Monocytes % 9.5 Eosinophils % 3.8 Basophils % 0.9 Absolute Neutrophils 8.5 H Absolute Lymphocytes 2.0 Absolute Monocytes 1.2 Absolute Eosinophils 0.5 Absolute Basophils 0.1 Sodium 141.9 Potassium 4.6 Chloride 104 Carbon Dioxide 30 Anion Gap 8 BUN 4 L Creatinine 0.71 Est GFR ( Amer) > 60 Est GFR (Non-Af Amer) > 60 Glucose 184 H Calcium 10.4 H Total Bilirubin 0.9 AST 29 ALT 32 Alkaline Phosphatase 138 H Total Protein 6.6 Albumin 3.0 L Impressions: Abdomen/Pelvis CT 09/18/16 15:19 IMPRESSION: Findings worrisome for metastatic disease to the liver, malignant lymph nodes of the right lower quadrant, and a posterior wall ascending colon malignancy Guidance Fluoroscopy 09/25/16 15:37 IMPRESSION: Intra procedural imaging and fluoro Chest X-Ray 09/25/16 15:55 IMPRESSION: No pneumothorax post right permanent central line placement with the tip in the superior vena cava. 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 Qualified Code(s): E11.8 - Type 2 diabetes mellitus with unspecified complications; E11.65 - Type 2 diabetes mellitus with hyperglycemia Is this a current diagnosis for this admission?: Yes (4) HTN (hypertension) Qualifiers: Hypertension type: essential hypertension Qualified Code(s): I10 - Essential (primary) hypertension Is this a current diagnosis for this admission?: Yes (5) HLD (hyperlipidemia) Qualifiers: Hyperlipidemia type: pure hypercholesterolemia Qualified Code(s): E78.00 - Pure hypercholesterolemia, unspecified; E78.0 - Pure hypercholesterolemia Is this a current diagnosis for this admission?: Yes (6) Obesity with body mass index (BMI) of 30.0 to 39.9 Is this a current diagnosis for this admission?: Yes (7) Adenocarcinoma of colon metastatic to liver Is this a current diagnosis for this admission?: Yes - Time Time Spent with patient: 25-34 minutes Medications reviewed and adjusted accordingly: Yes Anticipated discharge: Home - Inpatient Certification Based on my medical assessment, after consideration of the patient's comorbidities, presenting symptoms, or acuity I expect that the services needed warrant INPATIENT care.: Yes I certify that my determination is in accordance with my understanding of Medicare's requirements for reasonable and necessary INPATIENT services [42 CFR 412.3e].: Yes Medical Necessity: Need Close Monitoring Due to Risk of Patient Decompensation, Need For IV Fluids, Need For Continuous Telemetry Monitoring, Need for IV Antibiotics, Need for Surgery, Risk of Complication if Not Cared For in Hospital Post Hospital Care: D/C Imaging Engineer Documentation - Plan Summary Plan Summary: See attending physician orders.
[2016-09-25] MEDS: EZETIMIBE 10 MG TABLET PO SCH (21:05)
[2016-09-25] MEDS: INSULIN LISPRO 100 UNIT/ML 3 ML VIAL SUBCUT PRN (22:00)
[2016-09-26] MEDS: METRONIDAZOLE 500 MG TABLET PO SCH ×3 (03:22→14:45)
[2016-09-26] MEDS: AMPICILLIN SODIUM/SULBACTAM NA 3 GM in NORMAL SALINE 100 ML IV SCH (05:40)
[2016-09-26] MEDS: LANSOPRAZOLE 30 MG TAB.RAP.DR PO SCH (05:41)
[2016-09-26] MEDS: FERROUS SULFATE 325 MG TABLET PO SCH ×2 (08:30→17:39)
[2016-09-26] MEDS: HUM INSULIN NPH/REG INSULIN HM 100 UNIT/1 ML 3 ML SUBCUT SCH ×2 (08:30→17:46)
[2016-09-26] MEDS: ASCORBIC ACID 500 MG TABLET PO SCH ×2 (08:30→17:39)
[2016-09-26] MEDS: METFORMIN HCL 500 MG TABLET PO SCH ×2 (08:30→17:39)
[2016-09-26] MEDS: LOSARTAN POTASSIUM 50 MG TABLET PO SCH (09:43)
[2016-09-26] MEDS: BENZONATATE 100 MG CAPSULE PO SCH (13:21)
[2016-09-26 18:29] VITALS: BP 151/80
--- NOTE | 2016-09-26 18:39 | PDOC DISCHARGE SUMMARY ---
General - Admit/Disc Date/PCP Admission Date/Primary Care Provider: 09/18/16 19:03 Discharge Date: 09/26/16 - Discharge Diagnosis (1) Adenocarcinoma of colon metastatic to liver Is this a current diagnosis for this admission?: Yes Summary: see attending physician notes. She is scheduled for outpatient PET scan on 09/30 and initiation of chemotherapy on 10/01/16. (2) Infected dental carries Is this a current diagnosis for this admission?: Yes Summary: Maintain on Metronidazole 500 mg po tid and Augmentin 875/125 mg po bid x 4 days. (3) Abdominal pain Is this a current diagnosis for this admission?: Yes Summary: Resolved. (4) Uncontrolled type 2 diabetes mellitus with complication Is this a current diagnosis for this admission?: Yes Summary: I had extensive discussion with patient regarding post discharge insulin management and adequate food intake. (5) HTN (hypertension) Is this a current diagnosis for this admission?: Yes Summary: Maintain on medication management. (6) HLD (hyperlipidemia) Is this a current diagnosis for this admission?: Yes Summary: Maintain on medication management. (7) Obesity with body mass index (BMI) of 30.0 to 39.9 Is this a current diagnosis for this admission?: Yes - Additional Information Resuscitation Status: Full Code Discharge Diet: Cardiac, Diabetic Discharge Activity: Activity As Tolerated Home Medications: Acetaminophen [Tylenol Extra Strength 500 mg Tablet] 2 tab PO DAILYP PRN Aspirin [Aspirin 81 mg Chewable Tablet] 81 mg PO DAILY 09/18/16 Esomeprazole Magnesium [Nexium] 40 mg PO QAM 09/18/16 Ezetimibe [Zetia 10 mg Tablet] 10 mg PO QHS 09/18/16 Insulin NPH Hum/Reg Insulin Hm [Novolin 70-30 100 Unit/ml Vial] 50 unit SQ QPM 09/18/16 Insulin NPH Hum/Reg Insulin Hm [Novolin 70-30 100 Unit/ml Vial] 90 unit SQ QAM 09/18/16 Irbesartan 300 mg PO DAILY 09/18/16 Loratadine [Claritin 10 mg Tablet] 10 mg PO DAILY 09/18/16 Metformin HCl [Glucophage] 500 mg PO BIDBS 09/18/16 Amoxicillin/Potassium Clav [Amox-Clav 875-125 mg Tablet] 1 each PO BID #8 tablet 08/16/17 Ascorbic Acid [Vitamin C 500 mg Tablet] 500 mg PO BIDPCBS #60 tablet 09/26/16 Ferrous Sulfate [Feosol 325 mg Tablet] 325 mg PO BIDPCBS #60 tablet 09/26/16 Metronidazole [Flagyl 500 mg Tablet] 500 mg PO Q8 #12 tablet 09/26/16 History of Present Illness History of Present Illness: TRELL ISLAS is a 70 year old female is known to my practice and was recently discharged from this hospital following presentation with dental infection and leukocytosis. She is awaiting call from referral to [facility] dental department. Patient reported that she fell at home yesterday and unable to get off the floor for about 6 hours. She reported to the Ed with complain of generalized weakness and temperature of 100.7F. She denied any headache, dizziness, focal weakness, chest pain, palpitation, difficulty with breathing, nausea, or vomiting. She reported right lower abdominal pain since presenting to the ED. Patient reported poor appetite and P.O intake. She denied any genitourinary symptoms suggestive of any infectious process. Her initial evaluation revealed significant leukocytosis and abnormal CT abdomen and pelvis suggestive of liver metastases and ascending colon abnormality with retroperitoneal adenopathy. She reported that her last colonoscopy was more than 10 years ago. Patient was advised admission to the hospital for further evaluation and management. Hospital Course Hospital Course: Patient's reported abdominal pain led to her abdomen and pelvis CT scan that revealed ascending colon and liver masses. She was seen in consultation by Dr Pierce, cardiovascular physician assistant, and eventually had EGD and Colonoscopy completed that confirmed ascending colon multiple polyps and significant mass lesion. Mass biopsy confirmed adenocarcinoma with assumed metastatic involvement of the liver as stage 4 disease. She was seen in consultation by Dr Duncan, oncologist , she is schedule for outpatient PET scan on 09/30/[address] Duncan at [facility] on 10/01/16 for initiation of chemotherapy. Her presenting fever and associated leukocytosis suggested persistence of her dental infection process. She was managed with IV Unasyn and Metronidazole with adequate response to therapy. Her blood culture was no growth x 5 days. She eventually had port-a-cath placement by Dr. Black, surgeon. She will be discharged home on 4 days of Metronidazole and Augmentin therapy. She will follow up with me in the office as instructed upon discharge. We will follow up on her preadmission referral to [facility] Dental Department on outpatient. Physical Exam Vital Signs: Temp Pulse Resp BP Pulse Ox 98.8 F 103 H 19 128/95 H 100 09/26/16 15:35 09/26/16 15:35 09/26/16 15:35 09/26/16 15:35 09/26/16 15:35 Intake & Output 09/25/16 09/26/16 09/27/16 06:59 06:59 06:59 Intake Total 2324 1347 240 Output Total 1400 102 300 Balance 924 1245 -60 Weight 103.9 kg Physical Exam: General appearance: PRESENT: no acute distress, cooperative, obese Head exam: PRESENT: atraumatic, normocephalic Eye exam: PRESENT: conjunctiva pink, EOMI, PERRLA. ABSENT: scleral icterus Mouth exam: PRESENT: moist Teeth exam: PRESENT: poor dentition Respiratory exam: PRESENT: clear to auscultation bilaterally. Cardiovascular exam: PRESENT: RRR. ABSENT: diastolic murmur, rubs, systolic murmur GI/Abdominal exam: PRESENT: normal bowel sounds, soft. ABSENT: distended, guarding, mass, organomegaly, rebound, tenderness Extremities exam: ABSENT: pedal edema Musculoskeletal exam: PRESENT: deformity - related to multiple joints involvement with arthritis Neurological exam: PRESENT: alert, awake, oriented to person, oriented to place , oriented to time, oriented to situation, CN II-XII grossly intact. ABSENT: motor sensory deficit Psychiatric exam: PRESENT: appropriate affect, normal mood. ABSENT: homicidal ideation, suicidal ideation Skin exam: PRESENT: dry, intact, warm. Right neck region surgical site satisfactory. ABSENT: cyanosis, rash. Results Laboratory Results: 09/25/16 04:42 09/25/16 04:42 Impressions: Abdomen/Pelvis CT 09/18/16 15:19 IMPRESSION: Findings worrisome for metastatic disease to the liver, malignant lymph nodes of the right lower quadrant, and a posterior wall ascending colon malignancy Guidance Fluoroscopy 09/25/16 15:37 IMPRESSION: Intra procedural imaging and fluoro Chest X-Ray 09/25/16 15:55 IMPRESSION: No pneumothorax post right permanent central line placement with the tip in the superior vena cava. Qualifiers PATEINT BEING DISCHARGED WITH ANY OF THE FOLLOWING DIAGNOSIS?: No Plan Discharge Plan: D/C home today. Follow up with me and Dr. Duncan as instructed upon discharge. She is aware of all her arranged appointments. Time Spent: Greater than 30 Minutes - More than 50% of my time was spent on medication reconcilliation and post discharge care plan.
== END 2016-09-26 20:15 | disposition home or self-care (01) | DRG 375 ==
LOC: ER 12:06 → UNDOADMIN 17:16 → EH 17:16 → 5 20:05 → 3W 09-20 22:47 → 3N 09-23 16:11
PROVIDERS: ADMIT Internal Medicine Geriatric Medicine; ATTEND Internal Medicine Geriatric Medicine
PROC: 0DJ08ZZ Inspection of Upper Intestinal Tract, Via Natural or Artificial Opening Endoscopic (ICD-10-PCS; 2016-09-20)
PROC: 0DBL8ZX Excision of Transverse Colon, Via Natural or Artificial Opening Endoscopic, Diagnostic (ICD-10-PCS; principal; 2016-09-20 18:00)
PROC: 0DBK8ZX Excision of Ascending Colon, Via Natural or Artificial Opening Endoscopic, Diagnostic (ICD-10-PCS; 2016-09-20 18:00)
PROC: 0DBM8ZX Excision of Descending Colon, Via Natural or Artificial Opening Endoscopic, Diagnostic (ICD-10-PCS; 2016-09-20 18:00)
PROC: 0JH60XZ Insertion of Tunneled Vascular Access Device into Chest Subcutaneous Tissue and Fascia, Open Approach (ICD-10-PCS; 2016-09-25)
PROC: 02HV33Z Insertion of Infusion Device into Superior Vena Cava, Percutaneous Approach (ICD-10-PCS; 2016-09-25)
DX: C18.2 Malignant neoplasm of ascending colon (principal); C78.7 Secondary malignant neoplasm of liver and intrahepatic bile duct; D12.0 Benign neoplasm of cecum; D12.4 Benign neoplasm of descending colon; D12.3 Benign neoplasm of transverse colon; K57.30 Diverticulosis of large intestine without perforation or abscess without bleeding; K02.9 Dental caries, unspecified; I10 Essential (primary) hypertension; E78.5 Hyperlipidemia, unspecified; E66.9 Obesity, unspecified; Z68.38 Body mass index [BMI] 38.0-38.9, adult; E11.65 Type 2 diabetes mellitus with hyperglycemia; Z79.4 Long term (current) use of insulin; Z79.899 Other long term (current) drug therapy; Z90.710 Acquired absence of both cervix and uterus
CPT/HCPCS: 36415; 43235; 45380; 45385; 532; 71010; 74177; 77001; 80053; 81001; 82272; 82550; 82553; 82607; 82728; 82746; 82803; 82962; 82977; 83540; 83550; 83605; 84466; 84484; 85025; 85045; 85610; 85730; 86850; 86900; 86901; 87040; 87086; 88305; 93005; 93010; 96360; 99285; C1766; C1788; J0171; J0295; J1610; J1642; J1650; J1815; J2250; J2310; J2704; J3010; J3490; J7030

== ENCOUNTER → 2016-09-30 | Outpatient (CLI) | payer MEDICARE, BC ==
--- NOTE | 2016-09-26 17:37 | PROGRESS NOTE E ---
Progress Note NAME: TRELL ISLAS : 1945 AGE: 70Y DATE: 09/26/2016 ROOM: SUBJECTIVE: The patient had a Port-A-Cath placed yesterday in the OR. Her chest x-ray looks good in that the catheter appears to be in the area of the superior vena cava with no pneumothorax. OBJECTIVE: The wound this morning looks good, and the incision sites are clean and dry. DICTATING PHYSICIAN: JIMBO MORALES M.D. [id number] PHY#: [id number] ID: [id number] JOB#: [id number] ACCT: [id number] cc:JIMBO MORALES M.D. >
--- NOTE | 2016-10-01 09:16 | RADIOLOGY REPORT (SQ) ---
EXAM DESCRIPTION: PET CT SKULL/THIGH COMPLETED DATE/TIME: 09/30/2016 7:53 pm REASON FOR STUDY: MALIGNANT NEOPLASM OF COLON C18.9 MALIGNANT NEOPLASM OF COLON, UNSPECIFIED COMPARISON: CT abdomen pelvis 09/18/2016 Right-sided permanent central line placement 09/25/2016 RADIONUCLIDE AND DOSE: 13.1 mCi F18 FDG The route of agent administration: Intravenous FASTING BLOOD SUGAR: 105 mg/dl CONTRAST TYPE AND DOSE: No CT contrast given. TECHNIQUE: Blood glucose level was verified. Above dose of FDG was injected intravenously. 2-D seg mented attenuation correction images were obtained from the base of the skull to the midthighs. Nonc ontrast CT images were obtained for attenuation correction and fusion with emission images. CT image s were performed without oral or intravenous contrast and are not sensitive for parenchymal lesions. A series of overlapping emission PET images were obtained. Images reviewed and manipulated at [facility] work station by the radiologist. Images stored on PACS. LIMITATIONS: None. FINDINGS: HEAD AND NECK: No areas of abnormal metabolic activity in the soft tissues of the head and neck. CHEST: No worrisome areas of abnormal metabolic activity in the chest. There is mild FDG uptake priti g the right jugular line permanent central venous catheter with SUV 3.6 which is likely reactive. ABDOMEN AND PELVIS: In the right lower quadrant, and descending colon mass is present with SUV of 8.5 . A hypermetabolic right lower quadrant mesenteric lymph node is present, 1.9 x 1.6 cm in size on axial image 163, with SUV of 4.0. The 2.8 x 2.3 cm right lower quadrant mesenteric lymph node seen on prior CT exam 09/18/2016 is non met abolic on today's study. There are multiple hypermetabolic liver lesions from metastatic disease, index lesion are as follows: Right lobe liver subdiaphragmatic surface axial image 104, 5.4 x 4.2 cm in size with SUV 7.4 Anterior left lobe liver near the falciform ligament axial image 117, 6 x 4.7 cm in size with SUV 7.9 Inferior right lobe liver axial image 139, 7.2 x 5 cm in size with SUV of 7.5. PROXIMAL LOWER EXTREMITIES: No areas of abnormal metabolic activity in the soft tissues of the lower extremities. BONES: No abnormal metabolic activity in the visualized skeleton. ADDITIONAL CT FINDINGS: Right-sided permanent central line tip superior vena cava. Calcified right u pper lobe granuloma and right hilar lymph nodes. Bilateral intrarenal nonobstructive kidney stones. 6.5 cm cyst left lower pole kidney. Post hysterectomy. OTHER: Blood pool background activity 1.3 SUV, liver parenchyma SUV 1.45 IMPRESSION: Malignant right colon lesion with malignant right lower quadrant adenopathy. Liver metastatic lesions TECHNICAL DOCUMENTATION: JOB ID: [id number] [employer]- All Rights Reserved
== END ==
LOC: RAD 16:41
PROVIDERS: ATTEND Internal Medicine Medical Oncology
DX: C18.9 Malignant neoplasm of colon, unspecified (principal)
CPT/HCPCS: 78815; A9552

== ENCOUNTER → 2017-02-17 | Outpatient (CLI) | payer MEDICARE, BC ==
--- NOTE | 2017-02-18 18:21 | RADIOLOGY REPORT (SQ) ---
EXAM DESCRIPTION: PET CT SKULL/THIGH COMPLETED DATE/TIME: 02/18/2017 9:28 am REASON FOR STUDY: COLON CANCER C78.5 SECONDARY MALIGNANT NEOPLASM OF LARGE INTESTINE AND RE COMPARISON: PET-CT 09/30/2016 CT abdomen pelvis 09/28/2016 CT abdomen pelvis [facility] report only, 11/14/2016 RADIONUCLIDE AND DOSE: 11.4 mCi F18 FDG The route of agent administration: Intravenous FASTING BLOOD SUGAR: 105 mg/dl CONTRAST TYPE AND DOSE: No CT contrast given. TECHNIQUE: Blood glucose level was verified. Above dose of FDG was injected intravenously. 2-D seg mented attenuation correction images were obtained from the base of the skull to the midthighs. Nonc ontrast CT images were obtained for attenuation correction and fusion with emission images. CT image s were performed without oral or intravenous contrast and are not sensitive for parenchymal lesions. A series of overlapping emission PET images were obtained. Images reviewed and manipulated at [facility] work station by the radiologist. Images stored on PACS. LIMITATIONS: None. FINDINGS: HEAD AND NECK: No areas of abnormal metabolic activity in the soft tissues of the head and neck. CHEST: No areas of abnormal metabolic activity in the chest. There is a 4 mm right upper lobe noncal cified granuloma on image 70, non metabolic. There is a 6 mm noncalcified nodule in the left superio r segment lower lobe adjacent to the major fissure axial image 65 also non metabolic. ABDOMEN AND PELVIS: Since the prior exams from September 2016, there has been treatment response in the abdomen and pelvis. Decrease in size and metabolic activity of multiple liver lesions. Findings are as follows: Low-density lesion in the sub- diaphragmatic surface right lobe liver now 3.5 x 1.8 cm in size with m inimal peripheral rim of activity SUV 5 (was 5.3 x 4.1 cm on 09/30/2016 with SUV 7.4) An ill-defined area of activity present in the left lobe liver near the falciform ligament, measuring about 2 cm in diameter with SUV 5.3 (was 6 x 4.7 cm in size with SUV 7.9 on 09/30/2016). In the inferior right lobe liver, an ill-defined 3 cm area of increased activity persists, with SUV 5 .8 (was 7.2 x 5 cm in size with SUV 7.5 on 09/30/2016). The increased metabolic activity along the ascending colon seen on 09/30/2016 is no longer identified. No right lower quadrant metabolically active adenopathy along the mesentery PROXIMAL LOWER EXTREMITIES: No areas of abnormal metabolic activity in the soft tissues of the lower extremities. BONES: No abnormal metabolic activity in the visualized skeleton. ADDITIONAL CT FINDINGS: Bilateral adrenal glands are nodular in contour without increased metabolic a ctivity. Right permanent central line tip superior vena cava. Calcified right hilar lymph nodes. B ilateral subcentimeter intrarenal nonobstructive calculi. 6.5 cm cyst left lower pole kidney. OTHER: Liver background activity 2.1 SUV. Blood pool background activity 1.8 SUV IMPRESSION: Treatment response. Decrease in size and number of liver lesions. Right colon lesion n o longer identified. TECHNICAL DOCUMENTATION: JOB ID: [id number] [employer]- All Rights Reserved
== END ==
LOC: RAD 16:30
PROVIDERS: ATTEND Internal Medicine Medical Oncology
DX: C78.5 Secondary malignant neoplasm of large intestine and rectum (principal)
CPT/HCPCS: 78815; A9552

== ENCOUNTER 2017-04-25 18:36 | Observation (INO) | payer MEDICARE, BC, OTHER ==
[2017-04-25] MEDS ORDERED: NORMAL SALINE 1000 ML 1,000 ML IV PRN (18:54)
[2017-04-25] MEDS ORDERED: DEXTROSE 40% GEL 15 GM TUBE PO PRN ×2 (19:17)
[2017-04-25] MEDS ORDERED: DEXTROSE 50%-WATER 25 GM/50 ML DISP.SYRIN IV PRN ×2 (19:17)
[2017-04-25] MEDS ORDERED: GLUCAGON,HUMAN RECOMB 1 MG INJ IM PRN (19:17)
--- NOTE | 2017-04-25 19:51 | PDOC H&P ---
History of Present Illness Admission Date/PCP: 04/25/17 18:36 DAVID NORTON MD Patient complains of: Elevated blood sugar History of Present Illness: TRELL ISLAS is a 71 year old female presented to the office earlier today with complain of elevated blood glucose over 600 mg/fL on her home accu-chek machine last night with fasting reading at 456mg/dL. She reported associated dizziness, sweating, urinary frequency, blurry vision, intermittent numbness and tingling sensation in feet. She claimed onset of sore throat and dry mouth two days prior to her presentation. She reported postural lightheadedness, generalized weakness, fatigue, and sinus pressure without any other rhinitis symptoms. She claimed associated abdominal pain, nausea, and dyspepsia related to her reflux problem. Patient reported worsening urinary incontinence. Her accu-chek in the office earlier today [id number] mg/dL. In view of her presenting symptoms constellation and hyperglycemic state she was advised hospitalization for further evaluation and management. Past Medical History Cardiac Medical History: Reports: Hyperlipidema, Hypertension Neurological Medical History: Denies: Seizures Endocrine Medical History: Reports: Diabetes Mellitus Type 2 Malignancy Medical History: Reports: Colorectal Cancer - with liver metastases and currently on chemotherapy. Psychiatric Medical History: Reports: Depression, General Anxiety Disorder Past Surgical History Past Surgical History: Reports: Hysterectomy Social History Information Source: Patient, Dr. Office Lives with: Family Smoking Status: Never Smoker Frequency of Alcohol Use: None Hx Recreational Drug Use: No Hx Prescription Drug Abuse: No - Advance Directive Resuscitation Status: Full Code Family History Family History: Reviewed & Not Pertinent Parental Family History Reviewed: Yes Children Family History Reviewed: Yes Sibling(s) Family History Reviewed.: Yes Medication/Allergy Home Medications: Acetaminophen [Tylenol Extra Strength 500 mg Tablet] 2 tab PO DAILYP PRN Aspirin [Aspirin 81 mg Chewable Tablet] 81 mg PO DAILY 09/18/16 Esomeprazole Magnesium [Nexium] 40 mg PO QAM 09/18/16 Ezetimibe [Zetia 10 mg Tablet] 10 mg PO QHS 09/18/16 Insulin NPH Hum/Reg Insulin Hm [Novolin 70-30 100 Unit/ml Vial] 50 unit SQ QPM 09/18/16 Insulin NPH Hum/Reg Insulin Hm [Novolin 70-30 100 Unit/ml Vial] 90 unit SQ QAM 09/18/16 Irbesartan 300 mg PO DAILY 09/18/16 Loratadine [Claritin 10 mg Tablet] 10 mg PO DAILY 09/18/16 Metformin HCl [Glucophage] 500 mg PO BIDBS 09/18/16 Amoxicillin/Potassium Clav [Amox-Clav 875-125 mg Tablet] 1 each PO BID #8 tablet 09/26/16 Ascorbic Acid [Vitamin C 500 mg Tablet] 500 mg PO BIDPCBS #60 tablet 09/26/16 Ferrous Sulfate [Feosol 325 mg Tablet] 325 mg PO BIDPCBS #60 tablet 09/26/16 Metronidazole [Flagyl 500 mg Tablet] 500 mg PO Q8 #12 tablet 09/26/16 Allergies/Adverse Reactions: No Known Allergies Allergy (Verified 09/18/16 12:18) Review of Systems All systems: reviewed and no additional remarkable complaints except as stated Ears: PRESENT: other - intermittent ear pain Physical Exam General appearance: PRESENT: obese Head exam: PRESENT: atraumatic, normocephalic Eye exam: PRESENT: conjunctiva pink, EOMI, PERRLA. ABSENT: scleral icterus Mouth exam: PRESENT: moist Teeth exam: PRESENT: dental caries, poor dentation Throat exam: ABSENT: post pharyngeal erythema, tonsillar erythema, tonsillar exudate, tonsillogmegaly, other Neck exam: PRESENT: full ROM. ABSENT: carotid bruit, JVD, lymphadenopathy, thyromegaly Respiratory exam: PRESENT: clear to auscultation [place] Cardiovascular exam: PRESENT: RRR. ABSENT: diastolic murmur, rubs, systolic murmur Pulses: PRESENT: normal dorsalis pedis pul, +2 pedal pulses bilateral Vascular exam: PRESENT: normal capillary refill. ABSENT: pallor GI/Abdominal exam: PRESENT: normal bowel sounds, soft. ABSENT: distended, guarding, mass, organolmegaly, rebound, tenderness Rectal exam: PRESENT: deferred Extremities exam: ABSENT: pedal edema Musculoskeletal exam: PRESENT: deformity - related to multiple joints involvement with arthritis Neurological exam: PRESENT: alert, awake, oriented to person, oriented to place , oriented to time, oriented to situation, CN II-XII grossly intact. ABSENT: motor sensory deficit Psychiatric exam: PRESENT: appropriate affect, normal mood. ABSENT: homicidal ideation, suicidal ideation Skin exam: PRESENT: dry, intact, warm. ABSENT: cyanosis, rash Results Laboratory Results: Pending at the time of my documentation. 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 (2) HTN (hypertension) Qualifiers: Hypertension type: essential hypertension Qualified Code(s): I10 - Essential (primary) hypertension Is this a current diagnosis for this admission?: Yes Plan: See admitting attending physician orders. (3) HLD (hyperlipidemia) Qualifiers: Hyperlipidemia type: pure hypercholesterolemia Qualified Code(s): E78.00 - Pure hypercholesterolemia, unspecified Is this a current diagnosis for this admission?: Yes Plan: See admitting attending physician orders. (4) Obesity with body mass index (BMI) of 30.0 to 39.9 Is this a current diagnosis for this admission?: Yes Plan: See admitting attending physician orders. (5) Adenocarcinoma of colon metastatic to liver Is this a current diagnosis for this admission?: Yes Plan: See admitting attending physician orders. - Time Time Spent: 50 to 70 Minutes Medications reviewed and adjusted accordingly: Yes Anticipated discharge: Home Within: within 48 hours - Plan Summary Plan Summary: See admitting attending physician orders.
[2017-04-25 20:40] LABS: HEMATOCRIT 31.2 % (36.0-47.0); HEMOGLOBIN 9.7 g/dL (12.0-15.5); MEAN CORPUSCULAR HGB CONC 31.1 g/dL (32.0-36.0); MEAN CORPUSCULAR VOLUME 103 fl (80-97); RED BLOOD COUNT 3.03 10^6/uL (3.72-5.28); RED CELL DISTRIBUTION WIDTH 17.5 % (11.5-14.0)
[2017-04-25 20:48] LABS: ALANINE AMINOTRANSFERASE 35 U/L (9-52); ALBUMIN 3.5 g/dL (3.5-5.0); ALKALINE PHOSPHATASE 169 U/L (38-126); ANION GAP 14 (5-19); ASPARTATE AMINO TRANSFERASE 26 U/L (14-36); BILIRUBIN,DIRECT 0.2 mg/dL (0.0-0.4); BILIRUBIN,TOTAL 1.7 mg/dL (0.2-1.3); BLOOD UREA NITROGEN 21 mg/dL (7-20); CALCIUM 10.2 mg/dL (8.4-10.2); CARBON DIOXIDE 29 mmol/L (22-30); CHLORIDE 92 mmol/L (98-107); GLUCOSE 330 mg/dL (75-110); SODIUM 134.8 mmol/L (137-145); TOTAL PROTEIN 5.8 g/dL (6.3-8.2)
[2017-04-25 21:08] LABS: WHITE BLOOD COUNT 61.5 10^3/uL (4.0-10.5)
[2017-04-25 21:09] LABS: PLATELET COUNT 95 10^3/uL (150-450)
[2017-04-25 21:18] LABS: ABSOLUTE LYMPHOCYTES# (MANUAL) 1.8 10^3/uL (0.5-4.7); ABSOLUTE NEUTROPHILS# (MANUAL) 59.7 10^3/uL (1.7-8.2); BAND NEUTROPHILS % (MANUAL) 1 % (3-5); BASOPHILS % (MANUAL) 0 % (0-2); EOSINOPHILS % (MANUAL) 0 % (0-6); LYMPHOCYTES % (MANUAL) 3 % (13-45); MONOCYTES % (MANUAL) 0 % (3-13); SEGMENTED NEUTROPHILS % (MAN) 96 % (42-78); TOTAL CELLS COUNTED 100
[2017-04-25 21:21] LABS: ANISOCYTOSIS 1+; PLATELET COMMENT DECREASED; POLYCHROMASIA SLIGHT; TOXIC GRANULATION 2+; TOXIC VACUOLATION PRESENT
[2017-04-25] MEDS ORDERED: INFLUENZA ADLT QUAD (36MOS+) 2017-18 VAC 0.5 ML SYR IM PRN (21:28)
[2017-04-25] MEDS: INSULIN LISPRO 100 UNIT/ML 3 ML VIAL SUBCUT PRN (23:42)
[2017-04-26 00:20] LABS: APPEARANCE,URINE CLEAR; BILIRUBIN,URINE NEGATIVE (NEGATIVE); COLOR,URINE YELLOW; GLUCOSE, URINE >=500 mg/dL (NEGATIVE); KETONES,URINE NEGATIVE (NEGATIVE); LEUKOCYTE ESTERASE,URINE NEGATIVE (NEGATIVE); NITRITE,URINE NEGATIVE (NEGATIVE); PROTEIN,URINE NEGATIVE (NEGATIVE); URINE SPECIFIC GRAVITY 1.013
[2017-04-26] MEDS ORDERED: LANSOPRAZOLE 30 MG TAB.RAP.DR PO SCH (06:00)
[2017-04-26] MEDS: INSULIN LISPRO 100 UNIT/ML 3 ML VIAL SUBCUT PRN ×2 (08:26→13:24)
[2017-04-26] MEDS ORDERED: ENOXAPARIN SODIUM INJ 40 MG/0.4 ML DISP.SYRIN SUBCUT SCH (10:00)
[2017-04-26] MEDS ORDERED: TRAMADOL HCL 50 MG TABLET PO PRN (15:03)
--- NOTE | 2017-04-26 15:27 | PDOC DISCHARGE SUMMARY ---
General - Admit/Disc Date/PCP Admission Date/Primary Care Provider: 04/25/17 18:36 JARRETT JIMENES MD Discharge Date: 04/26/17 - Discharge Diagnosis (1) Uncontrolled diabetes mellitus with hyperglycemia, with long-term current use of insulin Is this a current diagnosis for this admission?: Yes (2) HTN (hypertension) Is this a current diagnosis for this admission?: Yes (3) HLD (hyperlipidemia) Is this a current diagnosis for this admission?: Yes (4) Obesity with body mass index (BMI) of 30.0 to 39.9 Is this a current diagnosis for this admission?: Yes (5) Adenocarcinoma of colon metastatic to liver Is this a current diagnosis for this admission?: Yes - Additional Information Resuscitation Status: Full Code Discharge Diet: Cardiac, Diabetic Discharge Activity: Activity As Tolerated Prescriptions: Insulin Aspart [Novolog Flexpen] 0 unit SUBCUT .SLD SCALE #5 pen Home Medications: Ascorbic Acid [Vitamin C 500 mg Tablet] 500 mg PO BID 04/26/17 Cetirizine HCl [Zyrtec 10 mg Tablet] 10 mg PO DAILY 04/26/17 Ezetimibe [Zetia 10 mg Tablet] 10 mg PO QHS 04/26/17 Fluticasone Propionate [Flonase Nasal [place] 50 Mcg/[place] 16 gm] 2 sprays NASL DAILY 04/26/17 Granisetron HCl [Kytril] 1 mg PO DAILY 04/26/17 Hum Insulin NPH/Reg Insulin Hm [Novolin 70-30 100 Unit/ml Vial] 50 unit SQ QPM # 0 04/26/17 Hum Insulin NPH/Reg Insulin Hm [Novolin 70-30 100 Unit/ml Vial] 90 unit SQ QAM 04/26/17 Insulin Aspart [Novolog Flexpen] 0 unit SUBCUT .SLD SCALE #5 pen 04/26/17 Irbesartan [Avapro] 300 mg PO DAILY 04/26/17 Omeprazole 20 mg PO DAILY 04/26/17 Tramadol HCl [Ultram 50 mg Tablet] 50 mg PO Q6HP PRN 04/26/17 History of Present Illness Patient complains of: elevated blood sugar History of Present Illness: TRELL ISLAS is a 71 year old female presented to the office earlier today with complain of elevated blood glucose over 600 mg/fL on her home accu-chek machine last night with fasting reading at 456mg/dL. She reported associated dizziness, sweating, urinary frequency, blurry vision, intermittent numbness and tingling sensation in feet. She claimed onset of sore throat and dry mouth two days prior to her presentation. She reported postural lightheadedness, generalized weakness, fatigue, and sinus pressure without any other rhinitis symptoms. She claimed associated abdominal pain, nausea, and dyspepsia related to her reflux problem. Patient reported worsening urinary incontinence. Her accu-chek in the office earlier today [id number] mg/dL. In view of her presenting symptoms constellation and hyperglycemic state she was advised hospitalization for further evaluation and management. Hospital Course Hospital Course: Patient was managed with IV fluid infusion normal saline 2.5Liters so far. She was placed on sliding scale Humulog insulin therapy with her preadmission basal insulin therapy. It became obvious that she is not compliant with dietary restrictions. This may be accounting for her severe hyperglycemia. She demonstrated significant leukocytosis without any clinical indication of infection. I spoke with her nurse at [facility] regarding possible usage of colony stimulating factor. She received 6mg of Neulasta on . Patient insisted upon discharge home today despite adequate explanation of need for further evaluation and management. She was instructed on use of Novolog insulin premeal and HS sliding scale coverage management. I emphasized dietary compliance and she will be referred to [facility] Diabetic Teaching program. She will follow up in the office as instructed upon discharge. Physical Exam Vital Signs: Temp Pulse Resp BP Pulse Ox 98.1 F 92 17 120/68 95 04/26/17 11:55 04/26/17 14:00 04/26/17 11:55 04/26/17 11:55 04/26/17 11:55 Intake & Output 04/25/17 04/26/17 04/27/17 06:59 06:59 06:59 Intake Total 2450 Output Total 500 Balance 1950 Weight 92.5 kg General appearance: PRESENT: obese Head exam: PRESENT: atraumatic, normocephalic Eye exam: PRESENT: conjunctiva pink, EOMI, PERRLA. ABSENT: scleral icterus Mouth exam: PRESENT: moist Teeth exam: PRESENT: poor dentation Respiratory exam: PRESENT: clear to auscultation [place] Cardiovascular exam: PRESENT: RRR. ABSENT: diastolic murmur, rubs, systolic murmur GI/Abdominal exam: PRESENT: normal bowel sounds, soft. ABSENT: distended, guarding, mass, organolmegaly, rebound, tenderness Extremities exam: ABSENT: pedal edema Musculoskeletal exam: PRESENT: deformity - related to multiple joints involvement with arthritis Neurological exam: PRESENT: alert, awake, oriented to person, oriented to place , oriented to time, oriented to situation, CN II-XII grossly intact. ABSENT: motor sensory deficit Psychiatric exam: PRESENT: appropriate affect, normal mood. ABSENT: homicidal ideation, suicidal ideation Skin exam: PRESENT: dry, intact, warm. ABSENT: cyanosis, rash Results Laboratory Results: 04/25/17 20:10 04/25/17 20:10 04/25/17 04/25/17 04/25/17 20:10 20:10 23:45 WBC 61.5 H* RBC 3.03 L Hgb 9.7 L Hct 31.2 L MCV 103 H MCH 32.0 MCHC 31.1 L RDW 17.5 H Plt Count 95 L Seg Neutrophils % Not Reportable Lymphocytes % Not Reportable Monocytes % Not Reportable Eosinophils % Not Reportable Basophils % Not Reportable Absolute Neutrophils Not Reportable Absolute Lymphocytes Not Reportable Absolute Monocytes Not Reportable Absolute Eosinophils Not Reportable Absolute Basophils Not Reportable Sodium 134.8 L Potassium 4.0 Chloride 92 L Carbon Dioxide 29 Anion Gap 14 BUN 21 H Creatinine 0.81 Est GFR ( Amer) > 60 Est GFR (Non-Af Amer) > 60 Glucose 330 H Calcium 10.2 Total Bilirubin 1.7 H AST 26 ALT 35 Alkaline Phosphatase 169 H Total Protein 5.8 L Albumin 3.5 Urine Color YELLOW Urine Appearance CLEAR Urine pH 6.0 Ur Specific [place] 1.013 Urine Protein NEGATIVE Urine Glucose (UA) >=500 H Urine Ketones NEGATIVE Urine Blood NEGATIVE Urine Nitrite NEGATIVE Ur Leukocyte Esterase NEGATIVE Urine WBC (Auto) 5 Urine RBC (Auto) 1 Qualifiers - * PATEINT BEING DISCHARGED WITH ANY OF THE FOLLOWING DIAGNOSIS?: No Plan Discharge Plan: D/C home today with follow up in the office as instructed upon discharge. Time Spent: Greater than 30 Minutes - More than 50% of my time was spent in educating patient on home management of her Diabetes Mellitus and post discharge follow up plan.
[2017-04-26 16:02] VITALS: BP 111/63
[2017-04-26] MEDS ORDERED: HUM INSULIN NPH/REG INSULIN HM 100 UNIT/1 ML 3 ML SUBCUT SCH (18:00)
[2017-04-26] MEDS ORDERED: ASCORBIC ACID 500 MG TABLET PO SCH (18:00)
[2017-04-26] MEDS ORDERED: EZETIMIBE 10 MG TABLET PO SCH (22:00)
[2017-04-27] MEDS ORDERED: HUM INSULIN NPH/REG INSULIN HM 100 UNIT/1 ML 3 ML SUBCUT SCH (08:00)
[2017-04-27] MEDS ORDERED: (PENDING PHARMACY ID) (Irbesartan [Avapro] 300 MG) PO SCH (10:00)
[2017-04-27] MEDS ORDERED: GRANISETRON HCL 1 MG PO SCH (10:00)
[2017-04-27] MEDS ORDERED: LOSARTAN POTASSIUM 50 MG TABLET PO SCH (10:00)
[2017-04-27] MEDS ORDERED: CETIRIZINE 10 MG TABLET PO SCH (10:00)
[2017-04-27] MEDS ORDERED: FLUTICASONE NASAL SPRAY 50 MCG/SPRY 120 SPRAY/16 GM NASL SCH (10:00)
== END 2017-04-26 16:25 | disposition home or self-care (01) ==
LOC: 5 18:36
PROVIDERS: ADMIT Internal Medicine Geriatric Medicine; ATTEND Internal Medicine Geriatric Medicine
DX: E11.65 Type 2 diabetes mellitus with hyperglycemia (principal); I10 Essential (primary) hypertension; E78.00 Pure hypercholesterolemia, unspecified; E66.9 Obesity, unspecified; C80.1 Malignant (primary) neoplasm, unspecified; C78.7 Secondary malignant neoplasm of liver and intrahepatic bile duct; R20.0 Anesthesia of skin; R20.2 Paresthesia of skin; J02.9 Acute pharyngitis, unspecified; R32 Unspecified urinary incontinence; H92.09 Otalgia, unspecified ear; K21.9 Gastro-esophageal reflux disease without esophagitis; M13.89 Other specified arthritis, multiple sites; K02.9 Dental caries, unspecified; Z68.33 Body mass index [BMI] 33.0-33.9, adult; Z79.4 Long term (current) use of insulin; Z79.899 Other long term (current) drug therapy; Z90.710 Acquired absence of both cervix and uterus
CPT/HCPCS: 36415; 82962 ×2; 85025; 80053; 81001; A9270 ×3; J7030; G0378; G0379; J1815

== ENCOUNTER 2017-04-28 06:47 | Emergency (ER) | payer MEDICARE, BC, OTHER ==
--- NOTE | 2017-04-28 07:43 | ER Document Report ---
ED Head/Face/Scalp Injury - General Chief Complaint: Facial Injury Stated Complaint: FALL/FACE INJURY Time Seen by Provider: 04/28/17 07:40 Notes: She is a 71-year-old female who presents after she was walking to the bathroom this morning and tripped over a rug. She hit the front of her head. She initially has some epistaxis, but this has resolved. She denies LOC, blood thinner use, neck pain, blurry vision, focal weakness, numbness, tingling or open wounds. TRAVEL OUTSIDE OF THE [place] IN LAST 30 DAYS: No - Related Data Allergies/Adverse Reactions: No Known Allergies Allergy (Verified 09/18/16 12:18) Past Medical History - General Information source: Patient - Social History Smoking Status: Unknown if Ever Smoked Family History: Reviewed & Not Pertinent Patient has suicidal ideation: No Patient has homicidal ideation: No - Past Medical History Cardiac Medical History: Reports: Hx Hypercholesterolemia, Hx Hypertension Neurological Medical History: Denies: Hx Seizures Endocrine Medical History: Reports: Hx Diabetes Mellitus Type 2 Renal/ Medical History: Denies: Hx Peritoneal Dialysis Malignancy Medical History: Reports: Hx Colorectal Cancer - with liver metastases and currently on chemotherapy. Psychiatric Medical History: Reports: Hx Depression Past Surgical History: Reports: Hx Hysterectomy - Immunizations Hx Diphtheria, Pertussis, Tetanus Vaccination: Yes Review of Systems - Review of Systems Notes: REVIEW OF SYSTEMS: CONSTITUTIONAL: -fevers, -chills EENT: -eye pain, -difficulty swallowing, -nasal congestion, +epistaxis CARDIOVASCULAR: -chest pain, -syncope. RESPIRATORY: -cough, -SOB GASTROINTESTINAL: -abdominal pain, -nausea, -vomiting, -diarrhea GENITOURINARY: -dysuria, -hematuria MUSCULOSKELETAL: -back pain, -neck pain SKIN: -rash or skin lesions. HEMATOLOGIC: -easy bruising or bleeding. LYMPHATIC: -swollen, enlarged glands. NEUROLOGICAL: -altered mental status or loss of consciousness, +headache, - neurologic symptoms PSYCHIATRIC: -anxiety, -depression. ALL OTHER SYSTEMS REVIEWED AND NEGATIVE. Physical Exam - Vital signs Vitals: Resp 17 04/28/17 06:57 - Notes Notes: PHYSICAL EXAMINATION: GENERAL: Well-appearing, well-nourished and in no acute distress. HEAD: Large right forehead hematoma. EYES: Pupils equal round and reactive to light, extraocular movements intact, sclera anicteric, conjunctiva are normal. ENT: dried blood in nares, tenderness over right mandible. No malocclusion or loose teeth. nares patent, oropharynx clear without exudates. Moist mucous membranes. NECK: Normal range of motion, supple without lymphadenopathy LUNGS: Breath sounds clear to auscultation bilaterally and equal. No wheezes rales or rhonchi. HEART: Regular rate and rhythm without murmurs ABDOMEN: Soft, nontender, normoactive bowel sounds. No guarding, no rebound. No masses appreciated. EXTREMITIES: Normal range of motion, no pitting or edema. No cyanosis. NEUROLOGICAL: Cranial nerves grossly intact. Normal speech, normal gait. Normal sensory and motor exams. PSYCH: Normal mood, normal affect. SKIN: Warm, Dry, normal turgor, no rashes or lesions noted. Course - Re-evaluation Re-evalutation: Patient with mechanical fall. CT head shows a right forehead hematoma and an acute mildly displaced nasal fracture and no active epistaxis at this time. Instructed her about management and given return precautions. - Vital Signs Vital signs: Temp Pulse Resp BP Pulse Ox 14 106/69 96 04/28/17 08:25 04/28/17 07:01 04/28/17 08:25 - Diagnostic Test Radiology reviewed: Image reviewed, Reports reviewed Radiology results interpreted by me: CT Head: Right frontal scalp hematoma. No underlying skull fracture or acute intracranial changes CT Facial: Acute mildly depressed right nasal bone fracture. Right frontal scalp hematoma without underlying skull fracture Discharge - Discharge Clinical Impression: Traumatic hematoma of forehead Qualifiers: Encounter type: initial encounter Qualified Code(s): S00.83XA - Contusion of other part of head, initial encounter Nasal bone fracture Qualifiers: Encounter type: initial encounter Fracture type: closed Qualified Code(s): S02.2XXA - Fracture of nasal bones, initial encounter for closed fracture Condition: Stable Disposition: HOME, SELF-CARE Additional Instructions: Contusion Your injury has resulted in a contusion -- a crushing of the deep tissues. No injury to important structures was detected during the physician's exam. Contusions vary in the amount of pain they cause, and in the length of time required for healing. Typically, the area will become bruised, and will remain painful to touch for two or three weeks. However, most patients are back to working and playing within a few days. After the initial period of rest and cold-packs, your symptoms (together with the doctor's recommendations) will determine how rapidly you can get back to full activity. Usually this means "do what feels okay, but don't do things that hurt." If re-examination was recommended, it's important to follow up as instructed. Call the doctor or return any time if pain increases, if swelling becomes severe, if you develop numbness or weakness in an injured extremity, or if any other alarming symptoms occur. Fracture of the Nose You have a fractured nose. The examination shows no evidence that the nose needs to be "set" or operated on. However, the physician must recheck the nose once the swelling has decreased. The final decision about straightening of the bones or surgery can be made once the swelling resolves. This usually takes three to five days. Rest in a reclining chair. Cold pack the nose for the next 24 to 36 hours. Do not blow the nose. This may increase the swelling or cause further bleeding. If you have painful swelling inside the nose or exquisite tenderness when the tip of the nose is touched, you should call the doctor at once or return for re-evaluation. You should also contact the doctor if you develop fever, purulent nasal drainage, increasing pain in the face, or problems with vision. Referrals: DAVID NORTON MD [Primary Care Provider] - Follow up as needed KIRA NELSON DO [ASSOCIATE] - Follow up as needed
--- NOTE | 2017-04-28 08:33 | RADIOLOGY REPORT (SQ) ---
EXAM DESCRIPTION: CT HEAD WITHOUT COMPLETED DATE/TIME: 04/28/2017 8:04 am REASON FOR STUDY: fall, head and face injury COMPARISON: CT brain 11/22/2015 TECHNIQUE: Axial images acquired through the brain without intravenous contrast. Images reviewed wi th bone, brain and subdural windows. Images stored on PACS. All CT scanners at this facility use dose modulation, iterative reconstruction, and/or weight based d osing when appropriate to reduce radiation dose to as low as reasonably achievable (ALARA). [facility]: Dose Right [facility]: CareDose [facility]: Dose Right [facility]: Teradose 4D [facility]: Smart [employer] RADIATION DOSE: CT Rad equipment meets quality standard of care and radiation dose reduction techniq ues were employed. CTDIvol: 64.6 mGy. DLP: 1034 mGy-cm. mGy. LIMITATIONS: None. FINDINGS: VENTRICLES: Normal size and contour. CEREBRUM: No masses. No hemorrhage. No midline shift. No evidence for acute infarction. Normal gra y/white matter differentiation. No areas of low density in the white matter. CEREBELLUM: No masses. No hemorrhage. No alteration of density. No evidence for acute infarction. EXTRAAXIAL SPACES: No fluid collections. No masses. ORBITS AND GLOBE: No intra- or extraconal masses. Normal contour of globe without masses. CALVARIUM: No fracture. PARANASAL SINUSES: No fluid or mucosal thickening. SOFT TISSUES: Right frontal scalp swelling with hematoma. No underlying skull fracture or acute intr acranial changes. OTHER: No other significant finding. IMPRESSION: Right frontal scalp hematoma. No underlying skull fracture or acute intracranial change s EVIDENCE OF ACUTE STROKE: NO. COMMENT: Quality ID # [id number]: Final reports with documentation of one or more dose reduction techniques (e.g., Automated exposure control, adjustment of the mA and/or kV according to patient size, use of iterative reconstruction technique) TECHNICAL DOCUMENTATION: JOB ID: [id number] [employer]- All Rights Reserved Reading location - IP/workstation name: [email or web address]
--- NOTE | 2017-04-28 08:35 | RADIOLOGY REPORT (SQ) ---
EXAM DESCRIPTION: CT FACIAL AREA WITHOUT COMPLETED DATE/TIME: 04/28/2017 8:03 am REASON FOR STUDY: fall, head and face injury COMPARISON: CT brain same date CT facial bones 08/20/2016 TECHNIQUE: Noncontrasted images through the facial bones and orbits windowed for bone and soft tissu e. Additional coronal and sagittal reconstructed images reviewed. All images stored on PACS. All CT scanners at this facility use dose modulation, iterative reconstruction, and/or weight based d osing when appropriate to reduce radiation dose to as low as reasonably achievable (ALARA). [facility]: Dose Right [facility]: CareDose [facility]: Dose Right [facility]: Teradose 4D [facility]: Smart [employer] RADIATION DOSE: CT Rad equipment meets quality standard of care and radiation dose reduction techniq ues were employed. CTDIvol: 30.4 mGy. DLP: 564 mGy-cm. mGy. LIMITATIONS: None. FINDINGS: FACIAL BONES: Acute mildly depressed right nasal bone fracture is present, best shown on a xial images 46 through 51. No other facial fractures are identified ORBITS: Intact. No fracture. Symmetric intact globes and retroorbital soft tissues. PARANASAL SINUSES: Clear. No significant mucosal thickening, mass or fluid. No nasal polyps. Maxill dick sinus outlets are patent. SOFT TISSUES: Right frontal scalp hematoma without underlying skull fracture INFERIOR BRAIN: Limited view. No acute findings. OTHER: No other significant finding. IMPRESSION: Acute mildly depressed right nasal bone fracture Right frontal scalp hematoma without underlying skull fracture TECHNICAL DOCUMENTATION: JOB ID: [id number] Quality ID # [id number]: Final reports with documentation of one or more dose reduction techniques (e.g., Au tomated exposure control, adjustment of the mA and/or kV according to patient size, use of iterative reconstruction technique) 2010 [employer]- All Rights Reserved Reading location - IP/workstation name: [email or web address]
[2017-04-28 09:33] VITALS: BP 112/75
== END 2017-04-28 09:05 | disposition home or self-care (01) ==
LOC: ER 06:47
DX: S02.2XXA Fracture of nasal bones, initial encounter for closed fracture (principal); S00.83XA Contusion of other part of head, initial encounter; W01.0XXA Fall on same level from slipping, tripping and stumbling without subsequent striking against object, initial encounter; Y93.89 Activity, other specified; I10 Essential (primary) hypertension; E11.9 Type 2 diabetes mellitus without complications
CPT/HCPCS: 70450; 70486; 99284

== ENCOUNTER 2017-05-22 11:06 | Emergency (ER) | payer MEDICARE, BC, OTHER ==
[2017-05-22] MEDS ORDERED: ASPIRIN 81 MG TABLET, CHEWABLE PO ONE (11:50)
[2017-05-22 12:16] LABS: HEMATOCRIT 34.3 % (36.0-47.0); HEMOGLOBIN 10.5 g/dL (12.0-15.5); MEAN CORPUSCULAR HEMOGLOBIN 32.4 pg (27.0-33.4); MEAN CORPUSCULAR HGB CONC 30.5 g/dL (32.0-36.0); MEAN CORPUSCULAR VOLUME 106 fl (80-97); PLATELET COUNT 324 10^3/uL (150-450); RED BLOOD COUNT 3.23 10^6/uL (3.72-5.28); RED CELL DISTRIBUTION WIDTH 17.4 % (11.5-14.0)
--- NOTE | 2017-05-22 12:20 | ER Document Report ---
ED General - General Chief Complaint: General Weakness Stated Complaint: ABDOMINAL PAIN Time Seen by Provider: 05/22/17 11:24 Mode of Arrival: Medic Information source: Patient Notes: 71 yr old female hx diabetes, ca, presents after seeing dr alfredo and starting antibiotics yesteray and seeing dr sibley and reciving an injection began having weakness and epigastric pain. pt denies any fevers or chills, states she does not have an infection and is unsure why she is on antibiotics. pt denies any complaints except for the abd pain which she states has happened both times prior after injections from oncology. TRAVEL OUTSIDE OF THE [place] IN LAST 30 DAYS: No - HPI Onset: Just prior to arrival Onset/Duration: Sudden Quality of pain: Cramping Severity: Mild Pain Level: 1 Associated symptoms: Weakness, Other Exacerbated by: Other - medicaiton Relieved by: Denies Similar symptoms previously: Yes Recently seen / treated by doctor: Yes - Related Data Allergies/Adverse Reactions: No Known Allergies Allergy (Verified 05/22/17 11:51) Past Medical History - Social History Smoking Status: Never Smoker Cigarette use (# per day): No Chew tobacco use (# tins/day): No Smoking Education Provided: No Frequency of alcohol use: None Drug Abuse: None Family History: Reviewed & Not Pertinent Patient has suicidal ideation: No Patient has homicidal ideation: No - Past Medical History Cardiac Medical History: Reports: Hx Hypercholesterolemia, Hx Hypertension Neurological Medical History: Denies: Hx Seizures Endocrine Medical History: Reports: Hx Diabetes Mellitus Type 2 Renal/ Medical History: Denies: Hx Peritoneal Dialysis Malignancy Medical History: Reports: Hx Colorectal Cancer - with liver metastases and currently on chemotherapy. GI Medical History: Reports: Hx Gastroesophageal Reflux Disease Psychiatric Medical History: Reports: Hx Depression Past Surgical History: Reports: Hx Hysterectomy - Immunizations Hx Diphtheria, Pertussis, Tetanus Vaccination: Yes Review of Systems - Review of Systems Notes: REVIEW OF SYSTEMS: CONSTITUTIONAL : Denies fever, chills, or sweats. Denies recent illness. EENT: Denies eye, ear, throat, or mouth pain or symptoms. Denies nasal or sinus congestion or discharge. Denies throat, tongue, or mouth swelling or difficulty swallowing. CARDIOVASCULAR: Denies chest pain. Denies palpitations or racing or irregular heart beat. Denies ankle edema. RESPIRATORY: Denies cough, cold, or chest congestion. Denies shortness of breath, difficulty breathing, or wheezing. GASTROINTESTINAL:admits to epigastric pain . GENITOURINARY: Denies difficulty urinating, painful urination, burning, frequency, blood in urine, or discharge. FEMALE GENITOURINARY: Denies vaginal bleeding, heavy or abnormal periods, irregular periods. Denies vaginal discharge or odor. MUSCULOSKELETAL: Denies back or neck pain or stiffness. Denies joint pain or swelling. SKIN: Denies rash, lesions or sores. HEMATOLOGIC : Denies easy bruising or bleeding. LYMPHATIC: Denies swollen, enlarged glands. NEUROLOGICAL: admits ot weakness PSYCHIATRIC: Denies anxiety or stress. Denies depression, suicidal ideation, or homicidal ideation. ALL OTHER SYSTEMS REVIEWED AND NEGATIVE. PHYSICAL EXAMINATION: GENERAL: Well-appearing, well-nourished and in no acute distress. HEAD: Atraumatic, normocephalic. EYES: Pupils equal round and reactive to light, extraocular movements intact, conjunctiva are normal. ENT: Nares patent, oropharynx clear without exudates. Moist mucous membranes. NECK: Normal range of motion, supple without lymphadenopathy LUNGS: Breath sounds clear to auscultation bilaterally and equal. No wheezes rales or rhonchi. HEART: Regular rate and rhythm without murmurs ABDOMEN: Soft, nontender, nondistended abdomen. No guarding, no rebound. No masses appreciated. Female : deferred Musculoskeletal: Normal range of motion, no pitting or edema. No cyanosis. NEUROLOGICAL: Cranial nerves grossly intact. Normal speech, normal gait. Normal sensory, motor exams PSYCH: Normal mood, normal affect. SKIN: Warm, Dry, normal turgor, no rashes or lesions noted. Dictation was performed using [employer] voice recognition software Physical Exam - Vital signs Vitals: Temp Resp BP Pulse Ox 97.9 F 16 131/74 H 100 05/22/17 11:10 05/22/17 11:10 05/22/17 11:10 05/22/17 11:10 Course - Re-evaluation Re-evalutation: 05/22/17 12:25 pt overall looks well, i have paged dr alfredo to determine history 05/22/17 12:29 White count is 32.7 however patient states the injection she receives is to increase her white count 05/22/17 13:44 [address] did speak with Dr. Alfredo, he feels stable discharging this patient home, I agree as vitals are stables Patient and family are very happy with this plan Patient appears to be on Augmentin for diverticulitis 05/22/17 16:54 I spoke with daughter both she and patient are happy with this plan I requested that they follow-up with Dr. Alfredo tomorrow After performing a Medical Screening Examination, I estimate there is LOW risk for ACUTE APPENDICITIS, BOWEL OBSTRUCTION, ACUTE CHOLECYSTITIS, PERFORATED DIVERTICULITIS, INCARCERATED HERNIA, PANCREATITIS, PELVIC INFLAMMATORY DISEASE, PERFORATED ULCER, ECTOPIC , or TUBO-OVARIAN ABSCESS, thus I consider the discharge disposition reasonable. Also, there is no evidence or peritonitis , sepsis, or toxicity. I have reevaluated this patient multiple times and no significant life threatening changes are noted. The patient and I have discussed the diagnosis and risks, and we agree with discharging home with close follow-up with the understanding that symptoms and presentations can change. We also discussed returning to the Emergency Department immediately if new or worsening symptoms occur. We have discussed the symptoms which are most concerning (e.g., bloody stool, fever, changing or worsening pain, vomiting) that necessitate immediate return. - Vital Signs Vital signs: Temp Pulse Resp BP Pulse Ox 97.9 F 12 100/63 97 05/22/17 11:10 05/22/17 13:51 05/22/17 13:51 05/22/17 13:51 - Laboratory Result Diagrams: 05/22/17 11:15 05/22/17 11:15 Laboratory results interpreted by me: 05/22/17 05/22/17 05/22/17 11:12 11:15 11:15 WBC 32.7 H* RBC 3.23 L Hgb 10.5 L Hct 34.3 L MCV 106 H MCHC 30.5 L RDW 17.4 H Seg Neuts % (Manual) 92 H Lymphocytes % (Manual) 1 L Monocytes % (Manual) 1 L Abs Neuts (Manual) 31.7 H Abs Lymphs (Manual) 0.3 L BUN 25 H Glucose 309 H POC Glucose 308 H Calcium 10.5 H AST 42 H Discharge - Discharge Clinical Impression: Weakness Uncontrolled type 2 diabetes mellitus with complication Qualifiers: Diabetes mellitus long term care pharmacist insulin use: with halfway use Qualified Code(s): E11.8 - Type 2 diabetes mellitus with unspecified complications; E11.65 - Type 2 diabetes mellitus with hyperglycemia; E11.65 - Type 2 diabetes mellitus with hyperglycemia; E11.65 - Type 2 diabetes mellitus with hyperglycemia; E11.65 - Type 2 diabetes mellitus with hyperglycemia; 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
[2017-05-22 12:26] LABS: WHITE BLOOD COUNT 32.7 10^3/uL (4.0-10.5)
[2017-05-22 12:35] LABS: ALANINE AMINOTRANSFERASE 27 U/L (9-52); ALBUMIN 3.6 g/dL (3.5-5.0); ALKALINE PHOSPHATASE 103 U/L (38-126); ANION GAP 12 (5-19); ASPARTATE AMINO TRANSFERASE 42 U/L (14-36); BILIRUBIN,DIRECT 0.2 mg/dL (0.0-0.4); BILIRUBIN,TOTAL 0.6 mg/dL (0.2-1.3); BLOOD UREA NITROGEN 25 mg/dL (7-20); CALCIUM 10.5 mg/dL (8.4-10.2); CARBON DIOXIDE 27 mmol/L (22-30); CHLORIDE 100 mmol/L (98-107); CREATINE KINASE 79 U/L (30-135); GLUCOSE 309 mg/dL (75-110); SODIUM 138.6 mmol/L (137-145); TOTAL PROTEIN 6.7 g/dL (6.3-8.2)
[2017-05-22 12:47] LABS: CREATINE KINASE MB 2.01 ng/mL (<4.55)
[2017-05-22 12:48] LABS: TROPONIN I < 0.012 ng/mL
[2017-05-22] MEDS ORDERED: NORMAL SALINE 1000 ML 1,000 ML IV ONE (12:52)
[2017-05-22 13:02] LABS: ABSOLUTE LYMPHOCYTES# (MANUAL) 0.3 10^3/uL (0.5-4.7); ABSOLUTE MONOCYTES # (MANUAL) 0.3 10^3/uL (0.1-1.4); ABSOLUTE NEUTROPHILS# (MANUAL) 31.7 10^3/uL (1.7-8.2); ANISOCYTOSIS 2+; BAND NEUTROPHILS % (MANUAL) 5 % (3-5); BASOPHILS % (MANUAL) 0 % (0-2); EOSINOPHILS % (MANUAL) 1 % (0-6); LYMPHOCYTES % (MANUAL) 1 % (13-45); MONOCYTES % (MANUAL) 1 % (3-13); NUCLEATED RED BLOOD CELLS 1 /100 WBC (0); OVALOCYTES 1+; PLATELET CLUMPS PRESENT; POIKILOCYTOSIS 1+; POLYCHROMASIA 1+; ROULEAUX SLIGHT; SEGMENTED NEUTROPHILS % (MAN) 92 % (42-78); TEAR DROP CELLS SLIGHT; TOTAL CELLS COUNTED 100; TOXIC GRANULATION 2+; TOXIC VACUOLATION PRESENT
--- NOTE | 2017-05-22 13:03 | RADIOLOGY REPORT (SQ) ---
EXAM DESCRIPTION: CHEST SINGLE VIEW COMPLETED DATE/TIME: 05/22/2017 12:54 pm REASON FOR STUDY: weakness COMPARISON: Chest films 09/25/2016, 08/20/2016 EXAM PARAMETERS: NUMBER OF VIEWS: One view. TECHNIQUE: Single frontal radiographic view of the chest acquired. RADIATION DOSE: NA LIMITATIONS: None. FINDINGS: LUNGS AND PLEURA: No opacities, masses or pneumothorax. No pleural effusion. MEDIASTINUM AND HILAR STRUCTURES: No masses. Contour normal. HEART AND VASCULAR STRUCTURES: Stable mild cardiomegaly BONES: No acute findings. HARDWARE: Unchanged right-sided permanent central line with the tip in the superior vena cava OTHER: No other significant finding. IMPRESSION: No acute findings TECHNICAL DOCUMENTATION: JOB ID: [id number] [employer]- All Rights Reserved Reading location - IP/workstation name: [email or web address]
--- NOTE | 2017-05-22 14:03 | EKG REPORT ---
SEVERITY:- ABNORMAL ECG - SINUS RHYTHM ATRIAL PREMATURE COMPLEX LEFT ANTERIOR FASCICULAR BLOCK NONSPECIFIC T ABNORMALITIES, INFERIOR LEADS : Confirmed by: Isidoro Dobbs MD 22-May-2017 14:02:16
[2017-05-22 14:06] VITALS: BP 100/63
== END 2017-05-22 14:06 | disposition home or self-care (01) ==
LOC: ER 11:06
DX: E11.65 Type 2 diabetes mellitus with hyperglycemia (principal); Z79.4 Long term (current) use of insulin; R53.1 Weakness; R10.13 Epigastric pain; I10 Essential (primary) hypertension; E11.9 Type 2 diabetes mellitus without complications; D72.829 Elevated white blood cell count, unspecified; Z85.048 Personal history of other malignant neoplasm of rectum, rectosigmoid junction, and anus; Z85.05 Personal history of malignant neoplasm of liver
CPT/HCPCS: 93005; 99285; 96360; 36415; 82553; 82962; 82550; 85025; 80053; 84484; 71045; 93010; A9270; J7030

== ENCOUNTER → 2017-07-28 | Outpatient (CLI) | payer MEDICARE, BC ==
--- NOTE | 2017-07-29 19:06 | RADIOLOGY REPORT (SQ) ---
EXAM DESCRIPTION: PET CT SKULL/THIGH COMPLETED DATE/TIME: 07/28/2017 7:15 pm REASON FOR STUDY: COLON CANCER C18.9 MALIGNANT NEOPLASM OF COLON, UNSPECIFIED COMPARISON: CT abdomen pelvis 09/18/2016 PET-CT 09/30/2016, 02/17/2017 RADIONUCLIDE AND DOSE: 11.9 mCi F18 FDG The route of agent administration: Intravenous FASTING BLOOD SUGAR: 115 mg/dl CONTRAST TYPE AND DOSE: No CT contrast given. TECHNIQUE: Blood glucose level was verified. Above dose of FDG was injected intravenously. 2-D seg mented attenuation correction images were obtained from the base of the skull to the midthighs. Nonc ontrast CT images were obtained for attenuation correction and fusion with emission images. CT image s were performed without oral or intravenous contrast and are not sensitive for parenchymal lesions. A series of overlapping emission PET images were obtained. Images reviewed and manipulated at [facility] work station by the radiologist. Images stored on PACS. LIMITATIONS: None. FINDINGS: HEAD AND NECK: No areas of abnormal metabolic activity in the soft tissues of the head and neck. CHEST: No areas of abnormal metabolic activity in the chest. ABDOMEN AND PELVIS: Please note that the liver metastatic lesions described on 02/17/2017 are very diff icult to identify on the non contrasted CT images today for accurate size measurements. However, the re is still residual activity in the lesion in the right lobe liver subdiaphragmatic surface with SUV 5.7 (was SUV 5 on 02/17/2017). There is stable activity in the left lobe liver lesion near the falcif orm ligament with SUV of 5.3 (was SUV 5.3 on 02/17/2017). There is slight decrease in activity along t he inferior right lobe liver lesion with SUV 4.3 (was SUV 5.8 on 02/17/2017). PROXIMAL LOWER EXTREMITIES: No areas of abnormal metabolic activity in the soft tissues of the lower extremities. BONES: Diffuse increased metabolic activity throughout the bone marrow without gross lytic or blastic lesions. Marrow activity ranges from 4 [address] FINDINGS: Lung parenchymal granulomas, stable bilateral non metabolic adrenal nodules. Right permanent central line tip superior vena cava. Calcified right hilar lymph nodes. 6.5 cm cys t left lower pole kidney, 5 mm stone right lower pole kidney. OTHER: Liver background activity 1.95 SUV. Blood pool background activity 1.4 SUV IMPRESSION: Liver metastatic lesions have similar metabolic activity compared to 02/17/2017. Diffuse bone marrow activity likely chemotherapy effect. TECHNICAL DOCUMENTATION: JOB ID: [id number] [employer]- All Rights Reserved Reading location - IP/workstation name: [email or web address]
== END ==
LOC: RAD 16:26
PROVIDERS: ATTEND Internal Medicine Medical Oncology
DX: C18.9 Malignant neoplasm of colon, unspecified (principal); C78.7 Secondary malignant neoplasm of liver and intrahepatic bile duct
CPT/HCPCS: 78815; A9552

== ENCOUNTER 2017-08-06 13:00 | Emergency (ER) | payer MEDICARE, BC ==
[2017-08-06] MEDS ORDERED: NORMAL SALINE 1000 ML 1,000 ML IV ONE (13:26)
--- NOTE | 2017-08-06 13:30 | ER Document Report ---
ED Fall - General Chief Complaint: Fall Stated Complaint: TOE PAIN Time Seen by Provider: 08/06/17 13:22 Mode of Arrival: Ambulatory Information source: Patient Notes: Chief complaint: Head injury History of complain:( obtained from----patient) 71 years old female with a history of colon cancer undergoing chemotherapy, last 2 days she was getting ceftriaxone IV for left foot infection as well as fever at the oncology center. Today she was feeling dizzy and yesterday had a fall and injured her occiput. Therefore she was referred to the ED. She denies any current headache focal weakness numbness tingling sensation. Denies any neck pain neck stiffness. Denies any chest pain. Denies any difficulty in breathing. Denies any abdominal pain nausea vomiting. She is ambulatory Onset: Sudden Duration: Yesterday Severity: Mild to moderate Quality: Sharp Context: Frequent fall Exacerbating factor and relieving factors: Noncontributory REVIEW OF SYSTEMS: CONSTITUTIONAL : Denies fever, chills, or sweats. Denies recent illness. EENT: Denies eye, ear, throat, or mouth pain or symptoms. Denies nasal or sinus congestion or discharge. Denies throat, tongue, or mouth swelling or difficulty swallowing. CARDIOVASCULAR: Denies chest pain. Denies palpitations or racing or irregular heart beat. Denies ankle edema. RESPIRATORY: Denies cough, cold, or chest congestion. Denies shortness of breath, difficulty breathing, or wheezing. GASTROINTESTINAL: Denies distention. Denies nausea, vomiting, or diarrhea. Denies blood in vomitus, stools, or per rectum. Denies black, tarry stools. Denies constipation. GENITOURINARY: Denies difficulty urinating, painful urination, burning, frequency, blood in urine, or discharge. FEMALE GENITOURINARY: Denies vaginal bleeding, heavy or abnormal periods, irregular periods. Denies vaginal discharge or odor. MUSCULOSKELETAL: Denies back or neck pain or stiffness. Denies joint pain or swelling. SKIN: Denies rash, lesions or sores. HEMATOLOGIC : Denies easy bruising or bleeding. LYMPHATIC: Denies swollen, enlarged glands. NEUROLOGICAL: Denies confusion or altered mental status. Denies passing out or loss of consciousness. Denies dizziness or lightheadedness. Denies headache. Denies weakness or paralysis or loss of use of either side. Denies problems with gait or speech. Denies sensory loss, numbness, or tingling. Denies seizures. PSYCHIATRIC: Denies anxiety or stress. Denies depression, suicidal ideation, or homicidal ideation. ALL OTHER SYSTEMS REVIEWED AND NEGATIVE. PHYSICAL EXAMINATION: GENERAL: Well-appearing, well-nourished and in no acute distress. Obese HEAD: Atraumatic, normocephalic. EYES: Pupils equal round and reactive to light, extraocular movements intact, conjunctiva are normal. ENT: Nares patent, oropharynx clear without exudates. Moist mucous membranes. NECK: Normal range of motion-flexion extension abduction abduction. No cervical spinal process tenderness noted, supple without lymphadenopathy LUNGS: Breath sounds clear to auscultation bilaterally and equal. No wheezes rales or rhonchi. HEART: Regular rate and rhythm without murmurs ABDOMEN: Soft, nontender, nondistended abdomen. No guarding, no rebound. No masses appreciated. Examination of genitals-deferred Musculoskeletal: Normal range of motion, no pitting or edema. No cyanosis. NEUROLOGICAL: Cranial nerves grossly intact. Normal speech, normal gait. Normal sensory, motor exams. No focal neurological deficit no pronator drift. PSYCH: Normal mood, normal affect. SKIN: Warm, Dry, normal turgor, no rashes or lesions noted. Dictation was performed using [employer] voice recognition software TRAVEL OUTSIDE OF THE [place] IN LAST 30 DAYS: No - HPI Severity: Moderate Pain Level: 2 - Related data Allergies/Adverse Reactions: No Known Allergies Allergy (Verified 08/06/17 15:50) Past Medical History - General Information source: Patient - Social History Smoking Status: Former Smoker Cigarette use (# per day): No Chew tobacco use (# tins/day): No Smoking Education Provided: No Frequency of alcohol use: Rare Drug Abuse: None Lives with: Family Family History: Reviewed & Not Pertinent - Past Medical History Cardiac Medical History: Reports: Hx Hypercholesterolemia, Hx Hypertension Neurological Medical History: Denies: Hx Seizures Endocrine Medical History: Reports: Hx Diabetes Mellitus Type 2 Renal/ Medical History: Denies: Hx Peritoneal Dialysis Malignancy Medical History: Reports: Hx Colorectal Cancer - with liver metastases and currently on chemotherapy. GI Medical History: Reports: Hx Gastroesophageal Reflux Disease Psychiatric Medical History: Reports: Hx Depression Past Surgical History: Reports: Hx Hysterectomy - Immunizations Hx Diphtheria, Pertussis, Tetanus Vaccination: Yes Review of Systems - Review of Systems Notes: Dictated Physical Exam - Vital signs Vitals: Temp Pulse Resp BP Pulse Ox 98.4 F 86 16 130/59 H 97 08/06/17 14:08 08/06/17 14:08 08/06/17 14:08 08/06/17 14:08 08/06/17 14:08 - Notes Notes: Dictated Course - Vital Signs Vital signs: Temp Pulse Resp BP Pulse Ox 98.4 F 86 16 130/59 H 97 08/06/17 14:08 08/06/17 14:08 08/06/17 14:08 08/06/17 14:08 08/06/17 14:08 - Laboratory Result Diagrams: 08/06/17 13:48 08/06/17 13:48 Laboratory results interpreted by me: 08/06/17 08/06/17 13:48 13:48 WBC 14.1 H RBC 3.48 L Hgb 10.7 L Hct 34.1 L MCV 98 H MCHC 31.3 L RDW 20.4 H Absolute Neutrophils 10.4 H Absolute Monocytes 1.5 H Carbon Dioxide 31 H Glucose 235 H Total Bilirubin 2.0 H AST 38 H - Diagnostic Test Radiology reviewed: Reports reviewed - CT of the brain reported by radiologist as no acute bleed or pathology. Except lytic lesions in the skull Discharge - Discharge Clinical Impression: Colon cancer metastasized to liver, Adenocarcinoma of colon metastatic to liver , Toe infection Fall Qualifiers: Encounter type: initial encounter Qualified Code(s): W19.XXXA - Unspecified fall, initial encounter Condition: Fair Disposition: HOME, SELF-CARE Instructions: Head Injury Precautions ([facility]) Additional Instructions: Please follow-up with oncology tomorrow morning Referrals: JARRETT JIMENES MD [ACTIVE STAFF] - Follow up as needed
[2017-08-06 14:01] LABS: ABSOLUTE BASOPHILS # (AUTO) 0.1 10^3/uL (0.0-0.2); ABSOLUTE EOSINOPHILS # (AUTO) 0.2 10^3/uL (0.0-0.6); ABSOLUTE LYMPHOCYTES (AUTO) 1.9 10^3/uL (0.5-4.7); ABSOLUTE MONOCYTES (AUTO) 1.5 10^3/uL (0.1-1.4); ABSOLUTE NEUT (AUTO) 10.4 10^3/uL (1.7-8.2); BASOPHILS % (AUTO) 0.4 % (0-2); EOSINOPHILS % (AUTO) 1.2 % (0-6); HEMATOCRIT 34.1 % (36.0-47.0); HEMOGLOBIN 10.7 g/dL (12.0-15.5); LYMPHOCYTES % (AUTO) 13.7 % (13-45); MEAN CORPUSCULAR HEMOGLOBIN 30.7 pg (27.0-33.4); MEAN CORPUSCULAR HGB CONC 31.3 g/dL (32.0-36.0); MEAN CORPUSCULAR VOLUME 98 fl (80-97); MONOCYTES % (AUTO) 10.5 % (3-13); PLATELET COUNT 220 10^3/uL (150-450); RED BLOOD COUNT 3.48 10^6/uL (3.72-5.28); RED CELL DISTRIBUTION WIDTH 20.4 % (11.5-14.0); SEGMENTED NEUTROPHILS % (AUTO) 74.2 % (42-78); TOTAL CELLS COUNTED % (AUTO) 100 %; WHITE BLOOD COUNT 14.1 10^3/uL (4.0-10.5)
--- NOTE | 2017-08-06 14:15 | RADIOLOGY REPORT (SQ) ---
EXAM DESCRIPTION: CT HEAD WITHOUT COMPLETED DATE/TIME: 08/06/2017 1:49 pm REASON FOR STUDY: Head injury COMPARISON: PET-CT 07/28/2017 CT brain 04/28/2017 TECHNIQUE: Axial images acquired through the brain without intravenous contrast. Images reviewed wi th bone, brain and subdural windows. Additional sagittal and coronal reconstructions were generated. Images stored on PACS. All CT scanners at this facility use dose modulation, iterative reconstruction, and/or weight based d osing when appropriate to reduce radiation dose to as low as reasonably achievable (ALARA). [facility]: Dose Right [facility]: CareDose [facility]: Dose Right [facility]: Teradose 4D [facility]: [employer] RADIATION DOSE: CT Rad equipment meets quality standard of care and radiation dose reduction techniq ues were employed. CTDIvol: 53.2 mGy. DLP: 964 mGy-cm. mGy. LIMITATIONS: None. FINDINGS: VENTRICLES: Normal size and contour. CEREBRUM: No masses. No hemorrhage. No midline shift. No evidence for acute infarction. Normal gra y/white matter differentiation. No areas of low density in the white matter. CEREBELLUM: No masses. No hemorrhage. No alteration of density. No evidence for acute infarction. EXTRAAXIAL SPACES: No fluid collections. No masses. ORBITS AND GLOBE: No intra- or extraconal masses. Normal contour of globe without masses. CALVARIUM: Multiple tiny lytic lesions from patient's known metastatic colon cancer. No calvarial fr acture. PARANASAL SINUSES: No fluid or mucosal thickening. SOFT TISSUES: No mass or hematoma. OTHER: No other significant finding. IMPRESSION: No acute intracranial changes. Multiple tiny lytic lesions throughout the bony calvarium from patient's known metastatic colon cance r. EVIDENCE OF ACUTE STROKE: NO. COMMENT: Quality ID # [id number]: Final reports with documentation of one or more dose reduction techniques (e.g., Automated exposure control, adjustment of the mA and/or kV according to patient size, use of iterative reconstruction technique) TECHNICAL DOCUMENTATION: JOB ID: [id number] [employer]- All Rights Reserved Reading location - IP/workstation name: [email or web address]
[2017-08-06 14:24] LABS: ALANINE AMINOTRANSFERASE 30 U/L (9-52); ALBUMIN 3.7 g/dL (3.5-5.0); ALKALINE PHOSPHATASE 122 U/L (38-126); ANION GAP 8 (5-19); ASPARTATE AMINO TRANSFERASE 38 U/L (14-36); BILIRUBIN,DIRECT 0.4 mg/dL (0.0-0.4); BLOOD UREA NITROGEN 9 mg/dL (7-20); CALCIUM 10.1 mg/dL (8.4-10.2); CARBON DIOXIDE 31 mmol/L (22-30); CHLORIDE 102 mmol/L (98-107); GLUCOSE 235 mg/dL (75-110); POTASSIUM 4.2 mmol/L (3.6-5.0); TOTAL PROTEIN 6.7 g/dL (6.3-8.2)
[2017-08-06] MEDS ORDERED: CEFTRIAXONE 1 GM/D5W RTU 1 GM/50 ML RTUPB IV ONE (17:36)
[2017-08-06 18:41] VITALS: BP 130/63
== END 2017-08-06 18:41 | disposition home or self-care (01) ==
LOC: ER 13:00
DX: C18.9 Malignant neoplasm of colon, unspecified (principal); C78.7 Secondary malignant neoplasm of liver and intrahepatic bile duct; L08.9 Local infection of the skin and subcutaneous tissue, unspecified; S09.90XA Unspecified injury of head, initial encounter; W19.XXXA Unspecified fall, initial encounter; E78.00 Pure hypercholesterolemia, unspecified; I10 Essential (primary) hypertension; E11.9 Type 2 diabetes mellitus without complications; Z85.038 Personal history of other malignant neoplasm of large intestine; Z87.891 Personal history of nicotine dependence; Z90.710 Acquired absence of both cervix and uterus
CPT/HCPCS: 99284; 96361; 96365; 36415; 85025; 80053; 70450; J7030; J0696

== ENCOUNTER 2017-10-28 20:26 | Emergency (ER) | payer MEDICARE, BC ==
[2017-10-28 20:57] VITALS: BP 165/70
--- NOTE | 2017-10-28 21:24 | ER Document Report ---
ED Medical Screen (RME) - General Chief Complaint: Fall Injury Stated Complaint: BACK PAIN/FALL Time Seen by Provider: 10/28/17 21:18 Notes: 71-year-old female, chief complaint of pain on the front of her chest on both side with soreness in her ribs after a fall that occurred 4 days ago, she states she tripped and fell as a result of this, states initially she felt okay but the next day she started hurting badly and she has not improved. Reports pain with deep breaths. Denies head injury. Not on a blood thinner. TRAVEL OUTSIDE OF THE [place] IN LAST 30 DAYS: No - Related Data Allergies/Adverse Reactions: No Known Allergies Allergy (Verified 08/06/17 15:50) Past Medical History - Social History Frequency of alcohol use: None Drug Abuse: None - Past Medical History Cardiac Medical History: Reports: Hx Hypercholesterolemia, Hx Hypertension Neurological Medical History: Denies: Hx Seizures Endocrine Medical History: Reports: Hx Diabetes Mellitus Type 2 Renal/ Medical History: Denies: Hx Peritoneal Dialysis Malignancy Medical History: Reports: Hx Colorectal Cancer - with liver metastases and currently on chemotherapy. GI Medical History: Reports: Hx Gastroesophageal Reflux Disease Psychiatric Medical History: Reports: Hx Depression Past Surgical History: Reports: Hx Hysterectomy - Immunizations Hx Diphtheria, Pertussis, Tetanus Vaccination: Yes History of Influenza Vaccine for 11/2016 - 04/2017 Season: No Physical Exam - Vital signs Vitals: Temp Pulse Resp BP Pulse Ox 97.8 F 86 20 165/70 H 97 10/28/17 20:56 10/28/17 20:56 10/28/17 20:56 10/28/17 20:56 10/28/17 20:56 - Respiratory Respiratory status: No respiratory distress. No: Respiratory distress, Labored , Retractions, Tachypnea Chest status: Tender - Bilateral anterior chest wall tenderness with no noted ecchymosis, swelling, wounds, or other abnormality Breath sounds: Normal Course - Vital Signs Vital signs: Temp Pulse Resp BP Pulse Ox 97.8 F 86 20 165/70 H 97 10/28/17 20:56 10/28/17 20:56 10/28/17 20:56 10/28/17 20:56 10/28/17 20:56 Doctor's Discharge - Discharge Referrals: DAVID NORTON MD [Primary Care Provider] - Follow up as needed
--- NOTE | 2017-10-28 22:25 | RADIOLOGY REPORT (SQ) ---
EXAM DESCRIPTION: XR RIBS BILATERAL WITH CHEST. Fall four days ago, bilateral front rib pain. COMPLETED DATE/TME: 10/28/2017 21:22 CLINICAL HISTORY: 71 years, Female, fall, 4 days ago, bilateral front rib pain COMPARISON: Chest x-ray 05/22/2017 NUMBER OF VIEWS: Four TECHNIQUE: PA view of the chest, one AP and two oblique views of the ribs. LIMITATIONS: None. FINDINGS: Again noted, right chest port catheter. Visualized ribs show no evidence of acute fracture. Somewhat limited visualization of the bilateral 11th and 12th ribs. Cardiomediastinal silhouette is within normal limits. No lung consolidate. No pleural effusion. No pneumothorax. Calcified right lung granuloma projects at the level of the anterior right fifth rib. IMPRESSION: Visualized ribs show no evidence of acute fracture. 2011 [employer]- All Rights Reserved
--- NOTE | 2017-10-29 00:30 | ER Document Report ---
ED Fall - General Chief Complaint: Fall Injury Stated Complaint: BACK PAIN/FALL Time Seen by Provider: 10/28/17 21:18 Mode of Arrival: Ambulatory Information source: Patient Notes: 71-year-old female presented ED for complaint of rib pain to both sides. She states she has sore ribs after she fell 4 days ago. She states she tripped and fell over a suitcase because there was no lights on and she was trying to walk in the dark. She states she started hurting badly and had not improved so she came to the emergency room to get checked out. She states the pain is worse with deep breaths. She denies any head injuries. She denies being on any blood thinners. Patient is alert and oriented respirations are regular and nonlabored. She does complain of pain with deep breathing. She does have a history of colorectal cancer with liver metastases and currently on chemotherapy. She states she last took chemotherapy last week. TRAVEL OUTSIDE OF THE [place] IN LAST 30 DAYS: No - HPI Occurred: Other - 4 days ago Where: Other - 4 days ago Context: Tripped Associated symptoms: None Location of injury/pain: Other - Bilateral ribs Quality of pain: Sharp Severity: Moderate Pain Level: 4 - Related data Allergies/Adverse Reactions: No Known Allergies Allergy (Verified 08/06/17 15:50) Past Medical History - General Information source: Patient - Social History Smoking Status: Never Smoker Cigarette use (# per day): No Chew tobacco use (# tins/day): No Smoking Education Provided: No Frequency of alcohol use: None Drug Abuse: None Occupation: Retired Lives with: Alone Family History: Reviewed & Not Pertinent Patient has suicidal ideation: No Patient has homicidal ideation: No - Past Medical History Cardiac Medical History: Reports: Hx Hypercholesterolemia, Hx Hypertension Pulmonary Medical History: Reports: None EENT Medical History: Reports: None Neurological Medical History: Reports: None Endocrine Medical History: Reports: Hx Diabetes Mellitus Type 2 Renal/ Medical History: Reports: None Malignancy Medical History: Reports: Hx Colorectal Cancer - with liver metastases and currently on chemotherapy. GI Medical History: Reports: Hx Gastroesophageal Reflux Disease Musculoskeletal Medical History: Reports None Skin Medical History: Reports None Psychiatric Medical History: Reports: Hx Depression Traumatic Medical History: Reports: None Past Surgical History: Reports: Hx Hysterectomy - Immunizations Immunizations up to date: Yes Hx Diphtheria, Pertussis, Tetanus Vaccination: Yes Review of Systems - Review of Systems Constitutional: No symptoms reported EENT: No symptoms reported Cardiovascular: No symptoms reported Respiratory: No symptoms reported Gastrointestinal: No symptoms reported Genitourinary: No symptoms reported Female Genitourinary: No symptoms reported Musculoskeletal: No symptoms reported Skin: No symptoms reported Hematologic/Lymphatic: No symptoms reported Neurological/Psychological: No symptoms reported -: Yes All other systems reviewed and negative Physical Exam - Vital signs Vitals: Temp Pulse Resp BP Pulse Ox 97.8 F 86 20 165/70 H 97 10/28/17 20:56 10/28/17 20:56 10/28/17 20:56 10/28/17 20:56 10/28/17 20:56 Interpretation: Normal - General General appearance: Appears well, Alert - HEENT Head: Normocephalic, Atraumatic Eyes: Normal Pupils: PERRL - Respiratory Respiratory status: No respiratory distress Chest status: Tender, Pain with cough, Pain with deep breathing. No: Chest mass , Ecchymosis, No pleuritic chest pain, Accessory muscle use, Splinting, Other Breath sounds: Normal Chest palpation: Normal - Cardiovascular Rhythm: Regular Heart sounds: Normal auscultation Murmur: No - Abdominal Inspection: Normal Distension: No distension Bowel sounds: Normal Tenderness: Nontender Organomegaly: No organomegaly - Back Back: Normal, Nontender - Extremities General upper extremity: Normal inspection, Nontender, Normal color, Normal ROM , Normal temperature General lower extremity: Normal inspection, Nontender, Normal color, Normal ROM , Normal temperature, Normal weight bearing. No: Kaylie's sign - Neurological Neuro grossly intact: Yes Cognition: Normal Orientation: AAOx4 [place] Coma Scale Eye Opening: Spontaneous [place] Coma Scale Verbal: Oriented [place] Coma Scale Motor: Obeys Commands Elsa Coma Scale Total: 15 Speech: Normal Motor strength normal: LUE, RUE, LLE, RLE Sensory: Normal - Psychological Associated symptoms: Normal affect, Normal mood - Skin Skin Temperature: Warm Skin Moisture: Dry Skin Color: Normal Course - Re-evaluation Re-evalutation: 10/29/17 00:31 Lungs are clear to auscultation. She is breathing 20 times a minute sats are 97 -99. She is afebrile apical pulse was about 90. I will discharge the patient home with the instructions for an incentive spirometry to ensure that she does not develop pneumonia by not taking deep breaths. Patient was instructed to return to call her primary doctor tomorrow and schedule a follow-up appointment as soon as possible. Patient was instructed to use the incentive spirometer 10 times an hour while awake. - Vital Signs Vital signs: Temp Pulse Resp BP Pulse Ox 97.8 F 86 20 165/70 H 97 10/28/17 20:56 10/28/17 20:56 10/28/17 20:56 10/28/17 20:56 10/28/17 20:56 - Diagnostic Test Radiology reviewed: Image reviewed, Reports reviewed Discharge - Discharge Clinical Impression: Bilateral contusion of ribs Condition: Stable Disposition: HOME, SELF-CARE Additional Instructions: Rib Contusion You have been diagnosed as having bruised ribs. It will usually take a few weeks for these injured ribs to heal. You should cough or take a deep breath at least every hour or two to prevent lung complications. You should not engage in any strenuous physical activity until released by your physician. The usual rule is "if it hurts, don' t do it." Return if you develop any of the following: (1) Fever or chills. (2) Persistent cough, coughing up blood, or shortness of breath. (3) Increasing pain. (4) Weakness, lightheadedness, or fainting. You have been instructed on the use of an incentive spirometer. You need to use this 10 times every hour while awake. This helps to prevent pneumonia. You have also been instructed to call your primary doctor in follow-up within the next 2-3 days or as soon as possible. If you develop any cough and fever and or any other symptoms please call your primary doctor or return to the ED. Forms: Elevated Blood Pressure Referrals: DAVID NORTON MD [Primary Care Provider] - Follow up as needed
== END 2017-10-29 01:25 | disposition home or self-care (01) ==
LOC: ER 20:26
DX: S20.212A Contusion of left front wall of thorax, initial encounter (principal); S20.211A Contusion of right front wall of thorax, initial encounter; W01.0XXA Fall on same level from slipping, tripping and stumbling without subsequent striking against object, initial encounter; C78.7 Secondary malignant neoplasm of liver and intrahepatic bile duct; Z85.038 Personal history of other malignant neoplasm of large intestine
CPT/HCPCS: 71111; 99283

== ENCOUNTER 2017-11-05 01:46 | Inpatient (IN) | payer MEDICARE, BC, OTHER ==
[2017-11-05 04:00] LABS: HEMATOCRIT 33.9 % (36.0-47.0); HEMOGLOBIN 10.7 g/dL (12.0-15.5); MEAN CORPUSCULAR HEMOGLOBIN 31.4 pg (27.0-33.4); MEAN CORPUSCULAR HGB CONC 31.6 g/dL (32.0-36.0); MEAN CORPUSCULAR VOLUME 99 fl (80-97); PLATELET COUNT 143 10^3/uL (150-450); RED BLOOD COUNT 3.41 10^6/uL (3.72-5.28); RED CELL DISTRIBUTION WIDTH 21.9 % (11.5-14.0)
[2017-11-05 04:04] LABS: ALANINE AMINOTRANSFERASE 29 U/L (9-52); ALBUMIN 3.9 g/dL (3.5-5.0); ALKALINE PHOSPHATASE 158 U/L (38-126); ANION GAP 12 (5-19); ASPARTATE AMINO TRANSFERASE 70 U/L (14-36); BILIRUBIN,DIRECT 0.6 mg/dL (0.0-0.4); BILIRUBIN,TOTAL 1.6 mg/dL (0.2-1.3); BLOOD UREA NITROGEN 18 mg/dL (7-20); CALCIUM 9.8 mg/dL (8.4-10.2); CARBON DIOXIDE 26 mmol/L (22-30); CHLORIDE 100 mmol/L (98-107); POTASSIUM 4.9 mmol/L (3.6-5.0); SODIUM 137.5 mmol/L (137-145); TOTAL PROTEIN 7.2 g/dL (6.3-8.2)
[2017-11-05 04:17] LABS: GLUCOSE 424 mg/dL (75-110)
[2017-11-05 04:20] LABS: WHITE BLOOD COUNT 36.6 10^3/uL (4.0-10.5)
[2017-11-05 04:38] LABS: ABSOLUTE LYMPHOCYTES# (MANUAL) 0.4 10^3/uL (0.5-4.7); ABSOLUTE MONOCYTES # (MANUAL) 1.8 10^3/uL (0.1-1.4); ABSOLUTE NEUTROPHILS# (MANUAL) 34.4 10^3/uL (1.7-8.2); BASOPHILS % (MANUAL) 0 % (0-2); EOSINOPHILS % (MANUAL) 0 % (0-6); LYMPHOCYTES % (MANUAL) 1 % (13-45); MONOCYTES % (MANUAL) 5 % (3-13); SEGMENTED NEUTROPHILS % (MAN) 94 % (42-78); TOTAL CELLS COUNTED 100
--- NOTE | 2017-11-05 04:42 | ER Document Report ---
Doctor's Note Notes: 11/05/17 04:40 I performed a quick triage evaluation of the patient. Patient is a 72-year-old female presents with unclear complaint. Apparently her girlfriend called EMS because she was sitting on the floor and could not get up. Patient says she has weakness because of her cancer but it is difficult to tell if this weakness is worse than her usual baseline. When I asked her if she is always weak her answer is "I guess so". She has some epigastric pain and I asked her if this is new or if she always has she responds "probably". She denies fevers. She denies vomiting. She is on chemotherapy. I asked her if she is received recent Neulasta shot. She does not know the answer this. Blood work was ordered in triage. The only thing I suspect this far as her CBC which shows a very high white blood cell count. When I trimmed back her previous CBCs she does have recurrent high blood white blood cell count which I suspect could be related to the Neulasta injection however it is unclear if she has received this. Her oncologist is Dr. Duncan. She is slightly short of breath appearing on exam. Gautam are clear. Abdomen is soft and not distended and not exquisitely tender. I will have her placed on a monitor. I have ordered a chest x-ray. Remainder of her blood work is pending. Dictation of this chart was performed using voice recognition software; therefore, there may be some unintended grammatical errors.
[2017-11-05 04:57] LABS: OVALOCYTES SLIGHT; POIKILOCYTOSIS 1+; POLYCHROMASIA SLIGHT; TOXIC GRANULATION 1+
[2017-11-05 04:58] LABS: HELMET CELLS SLIGHT; PLATELET COMMENT ADEQUATE; STOMATOCYTES SLIGHT; TEAR DROP CELLS SLIGHT
[2017-11-05 05:08] LABS: APPEARANCE,URINE TURBID; BILIRUBIN,URINE NEGATIVE (NEGATIVE); COLOR,URINE AMBER; GLUCOSE, URINE >=500 mg/dL (NEGATIVE); KETONES,URINE TRACE mg/dL (NEGATIVE); LEUKOCYTE ESTERASE,URINE LARGE (NEGATIVE); NITRITE,URINE NEGATIVE (NEGATIVE); PROTEIN,URINE 100 mg/dL (NEGATIVE); URINE SPECIFIC GRAVITY 1.022; UROBILINOGEN,URINE NEGATIVE mg/dL (<2.0)
--- NOTE | 2017-11-05 05:20 | RADIOLOGY REPORT (SQ) ---
EXAM DESCRIPTION: XR CHEST 1 VIEW COMPLETED DATE/TME: 11/05/2017 04:40 CLINICAL HISTORY: 72 years, Female, dyspnea COMPARISON: None. NUMBER OF VIEWS: 10/28/2017 TECHNIQUE: AP view of the chest LIMITATIONS: None. FINDINGS: Lungs are clear. The heart is enlarged. There is no pneumothorax or pleural effusion. The right chest wall port is stable in position. IMPRESSION: No acute cardiopulmonary abnormality 2010 [employer]- All Rights Reserved
[2017-11-05] MEDS: NORMAL SALINE 1000 ML 1,000 ML IV PRN ×3 (05:24→16:44)
[2017-11-05 05:35] LABS: VENOUS BLOOD BASE EXCESS -1.9 mmol/L; VENOUS BLOOD HCO3 23.6 mmol/L (20-32); VENOUS BLOOD PCO2 43.6 mmHg (35-63); VENOUS BLOOD PH 7.35 (7.30-7.42)
[2017-11-05] MEDS ORDERED: CEFTRIAXONE INJ 1000 MG VIAL IV ONE (05:58)
--- NOTE | 2017-11-05 06:37 | ER Document Report ---
ED General - General Chief Complaint: High Blood Sugar Stated Complaint: HIGH BLOOD SUGAR Time Seen by Provider: 11/05/17 04:39 TRAVEL OUTSIDE OF THE [place] IN LAST 30 DAYS: No - HPI Notes: Patient is a 72-year-old female that presents to the emergency department for chief complaint of elevated blood glucose. HPI is limited because of patient's acute condition making her a poor historian. Patient denies any pain and states she is not sure why she is in the emergency room. She is not sure why she came into the emergency room or how she got here. She denies any chest pain, shortness of breath, nausea, vomiting, abdominal pain, numbness. She does states she feels very tired. Past Medical History: Cancer, diabetes Past Surgical History: Unknown Social History: Denies drugs alcohol and tobacco Family History: Reviewed and noncontributory for presenting illness Allergies: Reviewed, see documented allergy list. REVIEW OF SYSTEMS: CONSTITUTIONAL : Fatigue No fever No chills No diaphoresis No recent illness EENT: No vision changes No congestion No sore throat CARDIOVASCULAR: No chest pain No palpitations RESPIRATORY: No shortness of breath No cough No difficulty breathing GASTROINTESTINAL: No abdominal pain No nausea No vomiting No diarrhea GENITOURINARY: No dysuria No hematuria No difficulty urinating MUSCULOSKELETAL: No back pain No leg pain No arm pain SKIN: No rashes No lesions LYMPHATIC: No swollen, enlarged glands. NEUROLOGICAL: No lightheadedness No headache No weakness No paresthesias PSYCHIATRIC: No anxiety No depression PHYSICAL EXAMINATION: Vital signs reviewed, nursing noted reviewed. GENERAL: Well-appearing, well-nourished and in no acute distress. HEAD: Atraumatic, normocephalic. EYES: Eyes appear normal, extraocular movements intact, sclera anicteric, conjunctiva are normal. ENT: nares patent, oropharynx clear without exudates. Dry mucous membranes. NECK: Normal range of motion, supple without lymphadenopathy LUNGS: Breath sounds clear to auscultation bilaterally and equal. No wheezes rales or rhonchi. Mild tachypnea no accessory muscle use HEART: Tachycardic and rhythm without murmurs ABDOMEN: Soft, nontender, normoactive bowel sounds. No rebound, guarding, or rigidity. No masses appreciated. EXTREMITIES: Nontender, good range of motion, trace pretibial edema NEUROLOGICAL: No focal neurological deficits. Moves all extremities spontaneously Motor and sensory grossly intact on exam. PSYCH: Normal mood, normal affect. SKIN: Warm, Dry, normal turgor, no rashes or lesions noted on exposed skin - Related Data Allergies/Adverse Reactions: No Known Allergies Allergy (Verified 08/06/17 15:50) Past Medical History - Social History Smoking Status: Unknown if Ever Smoked Family History: Reviewed & Not Pertinent Patient has suicidal ideation: No Patient has homicidal ideation: No - Past Medical History Cardiac Medical History: Reports: Hx Hypercholesterolemia, Hx Hypertension Neurological Medical History: Denies: Hx Seizures Endocrine Medical History: Reports: Hx Diabetes Mellitus Type 2 Renal/ Medical History: Denies: Hx Peritoneal Dialysis Malignancy Medical History: Reports: Hx Colorectal Cancer - with liver metastases and currently on chemotherapy. GI Medical History: Reports: Hx Gastroesophageal Reflux Disease Psychiatric Medical History: Reports: Hx Depression Past Surgical History: Reports: Hx Hysterectomy - Immunizations Immunizations up to date: Yes Hx Diphtheria, Pertussis, Tetanus Vaccination: Yes Review of Systems - Review of Systems Notes: Dictated Physical Exam - Vital signs Vitals: Temp Pulse Resp BP Pulse Ox 98.2 F 101 H 22 H 123/59 L 91 L 11/05/17 02:16 11/05/17 02:16 11/05/17 02:16 11/05/17 02:16 11/05/17 02:16 - Notes Notes: Dictated Course - Re-evaluation Re-evalutation: 11/05/17 06:41 Vitals reviewed. Nursing notes reviewed. Patient is tachycardic and tachypneic with elevated WBC count consistent with sepsis. Patient's urinary tract infection was treated with Rocephin. She was given 2 L normal saline. Patient's 30 mL/kg dose is over 5500 L and I am concerned if she receives that much fluid she will go into pulmonary edema. She will be hydrated continuously until resuscitated. Patient has elevated glucose but is not in DKA. Patient will be admitted to the hospital for further management of her sepsis. Case discussed with admitting physician Dr. Mason. Patient stable at time of admission - Vital Signs Vital signs: Temp Pulse Resp BP Pulse Ox 98.2 F 101 H 22 H 123/59 L 91 L 11/05/17 02:16 11/05/17 02:16 11/05/17 02:16 11/05/17 02:16 11/05/17 02:16 - Laboratory Result Diagrams: 11/05/17 03:29 11/05/17 03:29 Laboratory results interpreted by me: 11/05/17 11/05/17 11/05/17 03:29 03:29 04:35 WBC 36.6 H* RBC 3.41 L Hgb 10.7 L Hct 33.9 L MCV 99 H MCHC 31.6 L RDW 21.9 H Plt Count 143 L Seg Neuts % (Manual) 94 H Lymphocytes % (Manual) 1 L Abs Neuts (Manual) 34.4 H Abs Lymphs (Manual) 0.4 L Abs Monocytes (Manual) 1.8 H Est GFR ( Amer) 59 L Est GFR (Non-Af Amer) 49 L Glucose 424 H* POC Glucose Lactic Acid Total Bilirubin 1.6 H Direct Bilirubin 0.6 H AST 70 H Alkaline Phosphatase 158 H Urine Protein 100 H Urine Glucose (UA) >=500 H Urine Ketones TRACE H Urine Blood SMALL H Ur Leukocyte Esterase LARGE H 11/05/17 11/05/17 05:01 05:20 WBC RBC Hgb Hct MCV MCHC RDW Plt Count Seg Neuts % (Manual) Lymphocytes % (Manual) Abs Neuts (Manual) Abs Lymphs (Manual) Abs Monocytes (Manual) Est GFR ( Amer) Est GFR (Non-Af Amer) Glucose POC Glucose 376 H Lactic Acid 5.2 H Total Bilirubin Direct Bilirubin AST Alkaline Phosphatase Urine Protein Urine Glucose (UA) Urine Ketones Urine Blood Ur Leukocyte Esterase Discharge - Discharge Clinical Impression: Severe sepsis, Lactic acidosis, Hyperglycemia, Delirium UTI (urinary tract infection) Qualifiers: Urinary tract infection type: site unspecified Hematuria presence: with hematuria Qualified Code(s): N39.0 - Urinary tract infection, site not specified Condition: Stable Disposition: ADMITTED INPATIENT Admitting Provider: [facility] Unit Admitted: Telemetry
[2017-11-05] MEDS ORDERED: GLUCAGON,HUMAN RECOMB 1 MG INJ IM PRN (08:47)
[2017-11-05] MEDS ORDERED: DEXTROSE 50%-WATER 25 GM/50 ML DISP.SYRIN IV PRN ×2 (08:47)
[2017-11-05] MEDS ORDERED: DEXTROSE 40% GEL 15 GM TUBE PO PRN ×2 (08:47)
[2017-11-05] MEDS ORDERED: CEFTRIAXONE 1 GM/D5W RTU 1 GM/50 ML RTUPB IV SCH (10:00)
[2017-11-05] MEDS: ENOXAPARIN SODIUM INJ 40 MG/0.4 ML DISP.SYRIN SUBCUT SCH (10:15)
[2017-11-05 11:35] LABS: PATH REVIEW PATHOLOGIST REVIEWED
[2017-11-05] MEDS: INSULIN LISPRO 100 UNIT/ML 3 ML VIAL SUBCUT PRN ×3 (13:07→22:16)
[2017-11-05] MEDS ORDERED: GRANISETRON HCL 1 MG PO PRN (18:08)
--- NOTE | 2017-11-05 18:38 | PDOC H&P ---
History of Present Illness Admission Date/PCP: 11/05/17 06:45 DAVID NORTON Patient complains of: Elevated blood glucose, generalized weakness History of Present Illness: TRELL ISLAS is a 72 year old female known to my practice who presented to the ED via EMS service activated by friend due to patient inability to get off the floor. Patient reported ongoing generalized weakness at the time of my evaluation. She denied any chest pain or difficulty with breathing. She was not definite about fever but admitted to always been chill. She is currently on chemotherapy infusion for metastatic colon cancer. She denied any diarrhea but admitted to nausea and occasional vomiting. She denied flank pain, definite dysuria, or hematuria.Her initial evaluation in the ED was significant for episodes of confusion and poor contribution to her acute illness. She appeared dehydrated with tachycardia and tachypnea. Her laboratory evaluation revealed abnormal urinalysis, significant hyperglycemia, and leukocytosis with lactic acidosis suggestive of sepsis. She was advised hospitalization for further evaluation and management. Her morbidities include metastatic colon cancer with liver involvement, Diabetes mellitus type 2, hypertension, hyperlipdemia, and mixed anxiety with depressive disorder. Past Medical History Cardiac Medical History: Reports: Hyperlipidema, Hypertension Neurological Medical History: Denies: Seizures Endocrine Medical History: Reports: Diabetes Mellitus Type 2 Malignancy Medical History: Reports: Colorectal Cancer - with liver metastases and currently on chemotherapy. GI Medical History: Reports: Gastroesophageal Reflux Disease Psychiatric Medical History: Reports: Depression Past Surgical History Past Surgical History: Reports: Hysterectomy Social History Smoking Status: Unknown if Ever Smoked Frequency of Alcohol Use: None Hx Recreational Drug Use: No Drugs: None Hx Prescription Drug Abuse: No - Advance Directive Resuscitation Status: Full Code Family History Family History: Reviewed & Not Pertinent Parental Family History Reviewed: Yes Children Family History Reviewed: Yes Sibling(s) Family History Reviewed.: Yes Medication/Allergy Home Medications: Fluticasone Propionate [Flonase Nasal [place] 50 Mcg/[place] 16 gm] 1 spray NASL DAILY 11/05/17 Granisetron HCl [Kytril] 1 mg PO Q12HP PRN 11/05/17 Hum Insulin NPH/Reg Insulin Hm [Novolin 70-30 100 Unit/ml Vial] 70 units SQ QPM 11/05/17 Hum Insulin NPH/Reg Insulin Hm [Novolin 70-30 100 Unit/ml Vial] 90 units SQ QAM 11/05/17 Insulin Aspart [Novolog Insulin (Aspart) 100 unit/mL] 0 unit SQ .SLIDING SCALE 11/05/17 Metoprolol Succinate [Toprol Xl 50 mg Tab.sr] 50 mg PO DAILY 11/05/17 Olmesartan Medoxomil [Benicar] 20 mg PO DAILY 11/05/17 Omeprazole 20 mg PO DAILY 11/05/17 Pegfilgrastim [Neulasta Inj 6 mg/0.6 ml Disp.syrin] 6 mg SQ .ASDIR 11/05/17 Polyethylene Glycol 3350 [Miralax Powder 17 gm/Packet] 17 gm PO DAILY 11/05/17 Tramadol HCl [Ultram 50 mg Tablet] 50 mg PO Q6HP PRN 11/05/17 Allergies/Adverse Reactions: No Known Allergies Allergy (Verified 08/06/17 15:50) Review of Systems Constitutional: PRESENT: chills, weakness Cardiovascular: ABSENT: chest pain, dyspnea on exertion, edema, orthropnea, palpitations Respiratory: ABSENT: cough, hemoptysis Gastrointestinal: ABSENT: abdominal pain, constipation, diarrhea, hematemesis, hematochezia, nausea, vomiting Genitourinary: ABSENT: difficulty urinating, dysuria, hematuria Musculoskeletal: PRESENT: deformity - related to arthritis Integumentary: ABSENT: rash, wounds Neurological: PRESENT: confusion Psychiatric: ABSENT: anxiety, depression, homidical ideation, suicidal ideation Endocrine: ABSENT: cold intolerance, heat intolerance, polydipsia, polyuria Hematologic/Lymphatic: ABSENT: easy bleeding, easy bruising, lymphadenopathy Allergic/Immunologic: ABSENT: seasonal rhinorrhea Physical Exam Vital Signs: Temp Pulse Resp BP Pulse Ox 98.2 F 98 21 H 128/63 H 100 11/05/17 13:01 11/05/17 15:07 11/05/17 14:01 11/05/17 14:01 11/05/17 14:01 Intake & Output 11/04/17 11/05/17 11/06/17 06:59 06:59 06:59 Intake Total 1999 Balance 1999 General appearance: PRESENT: no acute distress, disheveled, obese Head exam: PRESENT: atraumatic, normocephalic Eye exam: PRESENT: conjunctiva pink, EOMI, PERRLA. ABSENT: scleral icterus Ear exam: PRESENT: normal external ear exam Mouth exam: PRESENT: dry mucosa Teeth exam: PRESENT: poor dentation Throat exam: ABSENT: post pharyngeal erythema, tonsillar erythema, tonsillar exudate, tonsillogmegaly, other Neck exam: PRESENT: full ROM. ABSENT: carotid bruit, JVD, lymphadenopathy, thyromegaly Respiratory exam: PRESENT: clear to auscultation [place] Cardiovascular exam: PRESENT: RRR, +S1, +S2. ABSENT: diastolic murmur, rubs, systolic murmur Pulses: PRESENT: +1 pedal pulses bilateral Vascular exam: PRESENT: normal capillary refill. ABSENT: pallor GI/Abdominal exam: PRESENT: normal bowel sounds, soft. ABSENT: distended, guarding, mass, organolmegaly, rebound, tenderness Rectal exam: PRESENT: deferred Extremities exam: ABSENT: pedal edema Musculoskeletal exam: PRESENT: deformity - related to multiple joints involvement with arthritis Neurological exam: PRESENT: alert, awake, oriented to person, oriented to place , oriented to situation, CN II-XII grossly intact. ABSENT: oriented to time - intermittently, motor sensory deficit Psychiatric exam: PRESENT: agitated - occasionally and refuse appropriate nursing and medical billing assistant care Skin exam: PRESENT: dry, warm Results Laboratory Results: I reviewed her lab results on [facility] and form significant part of my medical decision making. Impressions: Chest X-Ray 11/05/17 04:40 IMPRESSION: No acute cardiopulmonary abnormality 2010 [employer]- All Rights Reserved Assessment & Plan - Diagnosis (1) Toxic metabolic encephalopathy Is this a current diagnosis for this admission?: Yes Plan: See admitting attending physician orders. (2) Lactic acidosis Is this a current diagnosis for this admission?: Yes Plan: See admitting attending physician orders. (3) UTI (urinary tract infection) Qualifiers: Urinary tract infection type: site unspecified Hematuria presence: with hematuria Qualified Code(s): N39.0 - Urinary tract infection, site not specified; R31.9 - Hematuria, unspecified; R31.9 - Hematuria, unspecified Is this a current diagnosis for this admission?: Yes Plan: See admitting attending physician orders. (4) Uncontrolled diabetes mellitus with hyperglycemia, with long-term current use of insulin Is this a current diagnosis for this admission?: Yes Plan: See admitting attending physician orders. (5) HLD (hyperlipidemia) Qualifiers: Hyperlipidemia type: unspecified Qualified Code(s): E78.5 - Hyperlipidemia , unspecified Is this a current diagnosis for this admission?: Yes Plan: See admitting attending physician orders. (6) HTN (hypertension) Qualifiers: Hypertension type: essential hypertension Qualified Code(s): I10 - Essential (primary) hypertension Is this a current diagnosis for this admission?: Yes Plan: See admitting attending physician orders. (7) Metastatic colon cancer to liver Is this a current diagnosis for this admission?: Yes Plan: See admitting attending physician orders. - Time Time Spent: 50 to 70 Minutes Medications reviewed and adjusted accordingly: Yes Anticipated discharge: Home with Homehealth Within: Other - Inpatient Certification Based on my medical assessment, after consideration of the patient's comorbidities, presenting symptoms, or acuity I expect that the services needed warrant INPATIENT care.: Yes I certify that my determination is in accordance with my understanding of Medicare's requirements for reasonable and necessary INPATIENT services [42 CFR 412.3e].: Yes Medical Necessity: Need Close Monitoring Due to Risk of Patient Decompensation, Need For IV Fluids, Need For Continuous Telemetry Monitoring, Need for IV Antibiotics, Risk of Complication if Not Cared For in Hospital Post Hospital Care: D/C Weld Inspector Documentation - Plan Summary Plan Summary: See admitting attending physician orders.
[2017-11-05] MEDS: LOSARTAN POTASSIUM 50 MG TABLET PO SCH (22:16)
[2017-11-06] MEDS: CEFTRIAXONE SODIUM 1,000 MG in NORMAL SALINE 50 ML IV SCH (06:08)
[2017-11-06 06:19] LABS: HEMOGLOBIN 9.7 g/dL (12.0-15.5); MEAN CORPUSCULAR HEMOGLOBIN 31.5 pg (27.0-33.4); MEAN CORPUSCULAR HGB CONC 32.3 g/dL (32.0-36.0); MEAN CORPUSCULAR VOLUME 98 fl (80-97); RED BLOOD COUNT 3.08 10^6/uL (3.72-5.28); WHITE BLOOD COUNT 17.6 10^3/uL (4.0-10.5)
[2017-11-06 06:45] LABS: PLATELET COUNT 88 10^3/uL (150-450)
[2017-11-06 06:46] LABS: ALANINE AMINOTRANSFERASE 30 U/L (9-52); ALBUMIN 3.1 g/dL (3.5-5.0); ALKALINE PHOSPHATASE 146 U/L (38-126); ANION GAP 6 (5-19); ASPARTATE AMINO TRANSFERASE 45 U/L (14-36); BILIRUBIN,DIRECT 0.6 mg/dL (0.0-0.4); BILIRUBIN,TOTAL 1.5 mg/dL (0.2-1.3); BLOOD UREA NITROGEN 17 mg/dL (7-20); CALCIUM 9.5 mg/dL (8.4-10.2); CARBON DIOXIDE 27 mmol/L (22-30); CHLORIDE 107 mmol/L (98-107); GLUCOSE 249 mg/dL (75-110); POTASSIUM 4.2 mmol/L (3.6-5.0); SODIUM 140.3 mmol/L (137-145); TOTAL PROTEIN 6.1 g/dL (6.3-8.2)
[2017-11-06 06:48] LABS: ABSOLUTE LYMPHOCYTES# (MANUAL) 0.5 10^3/uL (0.5-4.7); ABSOLUTE NEUTROPHILS# (MANUAL) 17.1 10^3/uL (1.7-8.2); BASOPHILS % (MANUAL) 0 % (0-2); EOSINOPHILS % (MANUAL) 0 % (0-6); LYMPHOCYTES % (MANUAL) 3 % (13-45); MONOCYTES % (MANUAL) 0 % (3-13); SEGMENTED NEUTROPHILS % (MAN) 97 % (42-78); TOTAL CELLS COUNTED 100
[2017-11-06 06:52] LABS: ANISOCYTOSIS 3+; OVALOCYTES SLIGHT; POIKILOCYTOSIS 1+; SCHISTOCYTES SLIGHT
[2017-11-06 06:53] LABS: PLATELET COMMENT DECREASED; TEAR DROP CELLS SLIGHT
[2017-11-06] MEDS: NORMAL SALINE 1000 ML 1,000 ML IV PRN ×2 (08:25→23:47)
[2017-11-06] MEDS: ENOXAPARIN SODIUM INJ 40 MG/0.4 ML DISP.SYRIN SUBCUT SCH (09:05)
[2017-11-06] MEDS: METOPROLOL SUCCINATE 50 MG TAB.SR.24H PO SCH (09:10)
[2017-11-06] MEDS: LANSOPRAZOLE 30 MG TAB.RAP.DR PO SCH (09:10)
[2017-11-06] MEDS: POLYETHYLENE GLYCOL 3350 POWDER 17 GM/1 PACKET PO SCH (09:10)
[2017-11-06] MEDS: FLUTICASONE NASAL SPRAY 50 MCG/SPRY 120 SPRAY/16 GM NASL SCH (09:10)
[2017-11-06] MEDS: LOSARTAN POTASSIUM 50 MG TABLET PO SCH (09:10)
[2017-11-06] MEDS: HUM INSULIN NPH/REG INSULIN HM 100 UNIT/1 ML 3 ML SUBCUT SCH ×2 (09:42→17:04)
[2017-11-06] MEDS ORDERED: (PENDING PHARMACY ID) (Olmesartan Medoxomil [Benicar] 20 MG) PO SCH (10:00)
[2017-11-06] MEDS: INSULIN LISPRO 100 UNIT/ML 3 ML VIAL SUBCUT PRN ×2 (12:02→17:36)
--- NOTE | 2017-11-06 14:55 | Physician Advisory Note ---
Physician Advisor ProgressNote .: Pursuant to the plan for [facility], I have reviewed the medical record for this patient. Physician Advisor Statement: Please document: 1. whether sepsis is ruled out or ruled in in this case, & what infxn caused it +: tachypnea & tachycardia (persistent) w/leukocytosis, lactate of 5.2, acute encephalopathy (tho' GCS 15/15), acute hyperbili (if not due to liver mets ), developing thrombocytopenia, IVF boluses given in ED -: both ED dr & attg document "NAD", no hypotension, lactate level not repeated, relatively low rate IVF on adm *Given BC (+) for GPC, it will be important to clearly document whether pt had "bacteremia without sepsis", or "sepsis due to GPC", or "BC was likely a contaminant". If sepsis is documented, there should be PE descriptive findings that support that dx. Discussion: pt w/immunosuppression due to ongoing chemotherapy for metastatic colon CA, in w/UTI, metabolic encephalopathy as described in H&P. Thanks! CK
--- NOTE | 2017-11-06 19:44 | PDOC PROGRESS REPORT ---
Subjective Progress Note for:: 11/06/17 Subjective:: More lucid and appropriate in responses. No fever or chills. No chest pain or difficulty with breathing but complain of generalized weakness. Completed chemotherapy infusion since last clinical evaluation. No nausea or vomiting. PO intake remain fair. Reason For Visit: UROSEPSIS,ALTERED MENTAL STATUS Physical Exam Vital Signs: Temp Pulse Resp BP Pulse Ox 99.7 F 92 18 170/82 H 94 11/06/17 16:00 11/06/17 16:00 11/06/17 16:00 11/06/17 16:00 11/06/17 16:00 Intake & Output 11/05/17 11/06/17 11/07/17 06:59 06:59 06:59 Intake Total 3708 568 Balance 3708 568 Weight 95 kg General appearance: PRESENT: no acute distress, obese Head exam: PRESENT: atraumatic, normocephalic Eye exam: PRESENT: conjunctiva pink, EOMI, PERRLA. ABSENT: scleral icterus Ear exam: PRESENT: normal external ear exam Mouth exam: PRESENT: moist Teeth exam: PRESENT: poor dentation Respiratory exam: PRESENT: clear to auscultation [place], decreased breath sounds - at lung bases Cardiovascular exam: PRESENT: RRR. ABSENT: diastolic murmur, rubs, systolic murmur Vascular exam: ABSENT: pallor GI/Abdominal exam: PRESENT: normal bowel sounds, soft. ABSENT: distended, guarding, mass, organolmegaly, rebound, tenderness Extremities exam: ABSENT: pedal edema Musculoskeletal exam: PRESENT: normal inspection Neurological exam: PRESENT: alert, awake, oriented to person, oriented to place , oriented to time, oriented to situation, CN II-XII grossly intact. ABSENT: motor sensory deficit Psychiatric exam: PRESENT: appropriate affect, normal mood. ABSENT: homicidal ideation, suicidal ideation Skin exam: PRESENT: dry, warm Results Laboratory Results: 11/06/17 04:44 11/06/17 04:44 11/06/17 11/06/17 04:44 04:44 WBC 17.6 H RBC 3.08 L Hgb 9.7 L Hct 30.0 L MCV 98 H MCH 31.5 MCHC 32.3 RDW 21.0 H Plt Count 88 L Seg Neutrophils % Not Reportable Lymphocytes % Not Reportable Monocytes % Not Reportable Eosinophils % Not Reportable Basophils % Not Reportable Absolute Neutrophils Not Reportable Absolute Lymphocytes Not Reportable Absolute Monocytes Not Reportable Absolute Eosinophils Not Reportable Absolute Basophils Not Reportable Sodium 140.3 Potassium 4.2 Chloride 107 Carbon Dioxide 27 Anion Gap 6 BUN 17 Creatinine 0.80 Est GFR ( Amer) > 60 Est GFR (Non-Af Amer) > 60 Glucose 249 H Calcium 9.5 Total Bilirubin 1.5 H AST 45 H ALT 30 Alkaline Phosphatase 146 H Total Protein 6.1 L Albumin 3.1 L Impressions: Chest X-Ray 11/05/17 04:40 IMPRESSION: No acute cardiopulmonary abnormality 2010 [employer]- All Rights Reserved Assessment & Plan - Diagnosis (1) UTI (urinary tract infection) Qualifiers: Urinary tract infection type: site unspecified Hematuria presence: with hematuria Qualified Code(s): N39.0 - Urinary tract infection, site not specified; R31.9 - Hematuria, unspecified; R31.9 - Hematuria, unspecified Is this a current diagnosis for this admission?: Yes Plan: Mixed urogenital thania but > 100,00 col / mL. Continue current antibiotic coverage pending further clarification in view of her associated leukocytosis. (2) Toxic metabolic encephalopathy Is this a current diagnosis for this admission?: Yes Plan: Improving. (3) Lactic acidosis Is this a current diagnosis for this admission?: Yes Plan: Probably related to sepsis. Blood culture revealed gram positive cocci in clusters but contamination is a concern. Her leukocytosis is resolving. (4) Uncontrolled diabetes mellitus with hyperglycemia, with long-term current use of insulin Is this a current diagnosis for this admission?: Yes (5) HLD (hyperlipidemia) Qualifiers: Hyperlipidemia type: unspecified Qualified Code(s): E78.5 - Hyperlipidemia , unspecified Is this a current diagnosis for this admission?: Yes (6) HTN (hypertension) Qualifiers: Hypertension type: essential hypertension Qualified Code(s): I10 - Essential (primary) hypertension Is this a current diagnosis for this admission?: Yes (7) Metastatic colon cancer to liver Is this a current diagnosis for this admission?: Yes Plan: Her abnormal liver enzymes are probably due to metastatic disease involvement. - Time Time Spent with patient: 25-34 minutes Medications reviewed and adjusted accordingly: Yes Anticipated discharge: Home Within: Other - Inpatient Certification Based on my medical assessment, after consideration of the patient's comorbidities, presenting symptoms, or acuity I expect that the services needed warrant INPATIENT care.: Yes I certify that my determination is in accordance with my understanding of Medicare's requirements for reasonable and necessary INPATIENT services [42 CFR 412.3e].: Yes Medical Necessity: Need Close Monitoring Due to Risk of Patient Decompensation, Need For IV Fluids, Need For Continuous Telemetry Monitoring, Need for IV Antibiotics, Risk of Complication if Not Cared For in Hospital Post Hospital Care: D/C Vendor Management Specialist Documentation - Plan Summary Plan Summary: See attending physician orders.
[2017-11-07] MEDS: CEFTRIAXONE SODIUM 1,000 MG in NORMAL SALINE 50 ML IV SCH (05:06)
[2017-11-07] MEDS: LANSOPRAZOLE 30 MG TAB.RAP.DR PO SCH (05:06)
[2017-11-07 05:21] LABS: ABSOLUTE EOSINOPHILS # (AUTO) 0.3 10^3/uL (0.0-0.6); ABSOLUTE LYMPHOCYTES (AUTO) 0.9 10^3/uL (0.5-4.7); ABSOLUTE MONOCYTES (AUTO) 0.2 10^3/uL (0.1-1.4); ABSOLUTE NEUT (AUTO) 8.7 10^3/uL (1.7-8.2); BASOPHILS % (AUTO) 0.1 % (0-2); EOSINOPHILS % (AUTO) 3.1 % (0-6); HEMATOCRIT 29.8 % (36.0-47.0); HEMOGLOBIN 9.6 g/dL (12.0-15.5); LYMPHOCYTES % (AUTO) 8.9 % (13-45); MEAN CORPUSCULAR HEMOGLOBIN 31.5 pg (27.0-33.4); MEAN CORPUSCULAR HGB CONC 32.1 g/dL (32.0-36.0); MEAN CORPUSCULAR VOLUME 98 fl (80-97); MONOCYTES % (AUTO) 2.1 % (3-13); RED BLOOD COUNT 3.04 10^6/uL (3.72-5.28); RED CELL DISTRIBUTION WIDTH 21.1 % (11.5-14.0); SEGMENTED NEUTROPHILS % (AUTO) 85.8 % (42-78); TOTAL CELLS COUNTED % (AUTO) 100 %; WHITE BLOOD COUNT 10.2 10^3/uL (4.0-10.5)
[2017-11-07 05:34] LABS: ALANINE AMINOTRANSFERASE 30 U/L (9-52); ALBUMIN 3.1 g/dL (3.5-5.0); ALKALINE PHOSPHATASE 134 U/L (38-126); ANION GAP 6 (5-19); ASPARTATE AMINO TRANSFERASE 34 U/L (14-36); BILIRUBIN,DIRECT 0.3 mg/dL (0.0-0.4); BILIRUBIN,TOTAL 1.1 mg/dL (0.2-1.3); BLOOD UREA NITROGEN 8 mg/dL (7-20); CALCIUM 10.3 mg/dL (8.4-10.2); CARBON DIOXIDE 28 mmol/L (22-30); CHLORIDE 109 mmol/L (98-107); GLUCOSE 84 mg/dL (75-110); PLATELET COUNT 76 10^3/uL (150-450); POTASSIUM 4.4 mmol/L (3.6-5.0); TOTAL PROTEIN 6.3 g/dL (6.3-8.2)
[2017-11-07] MEDS: HUM INSULIN NPH/REG INSULIN HM 100 UNIT/1 ML 3 ML SUBCUT SCH ×2 (08:36→18:45)
[2017-11-07] MEDS: ENOXAPARIN SODIUM INJ 40 MG/0.4 ML DISP.SYRIN SUBCUT SCH (09:16)
[2017-11-07] MEDS: POLYETHYLENE GLYCOL 3350 POWDER 17 GM/1 PACKET PO SCH (09:20)
[2017-11-07] MEDS: LOSARTAN POTASSIUM 50 MG TABLET PO SCH (09:20)
[2017-11-07] MEDS: FLUTICASONE NASAL SPRAY 50 MCG/SPRY 120 SPRAY/16 GM NASL SCH (09:20)
[2017-11-07] MEDS: METOPROLOL SUCCINATE 50 MG TAB.SR.24H PO SCH (09:20)
[2017-11-07] MEDS: NORMAL SALINE 1000 ML 1,000 ML IV PRN (13:40)
--- NOTE | 2017-11-07 18:41 | PDOC PROGRESS REPORT ---
Subjective Progress Note for:: 11/07/17 Subjective:: no chest pain or difficulty with breathing. Pre-breakfast accuchek continue to be low with need for resuscitation.No nausea, vomiting or abdominal pain. Reason For Visit: UROSEPSIS,ALTERED MENTAL STATUS Physical Exam Vital Signs: Temp Pulse Resp BP Pulse Ox 99.4 F 77 17 155/69 H 99 11/07/17 15:22 11/07/17 15:22 11/07/17 15:22 11/07/17 15:22 11/07/17 15:22 Intake & Output 11/06/17 11/07/17 11/08/17 06:59 06:59 06:59 Intake Total 3708 2683 1236 Balance 3708 2683 1236 Weight 95 kg 94.3 kg Physical Exam: General appearance: PRESENT: no acute distress, obese Head exam: PRESENT: atraumatic, normocephalic Eye exam: PRESENT: conjunctiva pink, EOMI, PERRLA. ABSENT: scleral icterus Ear exam: PRESENT: normal external ear exam Mouth exam: PRESENT: moist Teeth exam: PRESENT: poor dentation Respiratory exam: PRESENT: clear to auscultation [place], decreased breath sounds - at lung bases Cardiovascular exam: PRESENT: RRR. ABSENT: diastolic murmur, rubs, systolic murmur Vascular exam: ABSENT: pallor GI/Abdominal exam: PRESENT: normal bowel sounds, soft. ABSENT: distended, guarding, mass, organomegaly, rebound, tenderness Extremities exam: ABSENT: pedal edema Musculoskeletal exam: PRESENT: normal inspection Neurological exam: PRESENT: alert, awake, oriented to person, oriented to place , oriented to time, oriented to situation, CN II-XII grossly intact. ABSENT: motor sensory deficit Psychiatric exam: PRESENT: appropriate affect, normal mood. ABSENT: homicidal ideation, suicidal ideation Skin exam: PRESENT: dry, warm Results Laboratory Results: 11/07/17 05:10 11/07/17 05:10 11/07/17 11/07/17 11/07/17 05:10 05:10 05:10 WBC 10.2 RBC 3.04 L Hgb 9.6 L Hct 29.8 L MCV 98 H MCH 31.5 MCHC 32.1 RDW 21.1 H Plt Count 76 L Seg Neutrophils % 85.8 H Lymphocytes % 8.9 L Monocytes % 2.1 L Eosinophils % 3.1 Basophils % 0.1 Absolute Neutrophils 8.7 H Absolute Lymphocytes 0.9 Absolute Monocytes 0.2 Absolute Eosinophils 0.3 Absolute Basophils 0.0 Sodium 143.0 Potassium 4.4 Chloride 109 H Carbon Dioxide 28 Anion Gap 6 BUN 8 Creatinine 0.67 Est GFR ( Amer) > 60 Est GFR (Non-Af Amer) > 60 Glucose 84 Lactic Acid 1.1 Calcium 10.3 H Total Bilirubin 1.1 AST 34 ALT 30 Alkaline Phosphatase 134 H Total Protein 6.3 Albumin 3.1 L Impressions: Chest X-Ray 11/05/17 04:40 IMPRESSION: No acute cardiopulmonary abnormality 2010 [employer]- All Rights Reserved Assessment & Plan - Diagnosis (1) UTI (urinary tract infection) Qualifiers: Urinary tract infection type: site unspecified Hematuria presence: with hematuria Qualified Code(s): N39.0 - Urinary tract infection, site not specified; R31.9 - Hematuria, unspecified; R31.9 - Hematuria, unspecified Is this a current diagnosis for this admission?: Yes (2) Toxic metabolic encephalopathy Is this a current diagnosis for this admission?: Yes (3) Lactic acidosis Is this a current diagnosis for this admission?: Yes (4) Uncontrolled diabetes mellitus with hyperglycemia, with long-term current use of insulin Is this a current diagnosis for this admission?: Yes (5) HLD (hyperlipidemia) Qualifiers: Hyperlipidemia type: unspecified Qualified Code(s): E78.5 - Hyperlipidemia , unspecified Is this a current diagnosis for this admission?: Yes (6) HTN (hypertension) Qualifiers: Hypertension type: essential hypertension Qualified Code(s): I10 - Essential (primary) hypertension Is this a current diagnosis for this admission?: Yes (7) Metastatic colon cancer to liver Is this a current diagnosis for this admission?: Yes - Time Time Spent with patient: 25-34 minutes Medications reviewed and adjusted accordingly: Yes Anticipated discharge: Home with Homehealth Within: Other - Inpatient Certification Based on my medical assessment, after consideration of the patient's comorbidities, presenting symptoms, or acuity I expect that the services needed warrant INPATIENT care.: Yes I certify that my determination is in accordance with my understanding of Medicare's requirements for reasonable and necessary INPATIENT services [42 CFR 412.3e].: Yes Medical Necessity: Need Close Monitoring Due to Risk of Patient Decompensation, Need For IV Fluids, Need For Continuous Telemetry Monitoring, Need for IV Antibiotics, Risk of Complication if Not Cared For in Hospital 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 Follow up on blood culture final report. Consider changing to oral antibiotic before discharge home.
[2017-11-07] MEDS: INSULIN LISPRO 100 UNIT/ML 3 ML VIAL SUBCUT PRN (21:21)
[2017-11-08] MEDS: NORMAL SALINE 1000 ML 1,000 ML IV PRN ×2 (05:22→19:25)
[2017-11-08] MEDS: CEFTRIAXONE SODIUM 1,000 MG in NORMAL SALINE 50 ML IV SCH (05:23)
[2017-11-08] MEDS: LANSOPRAZOLE 30 MG TAB.RAP.DR PO SCH (05:23)
[2017-11-08] MEDS ORDERED: CEFTRIAXONE SODIUM 1,000 MG in DEXTROSE 5%-WATER 50 ML IV SCH (06:00)
[2017-11-08] MEDS: INSULIN LISPRO 100 UNIT/ML 3 ML VIAL SUBCUT PRN ×3 (08:44→16:35)
[2017-11-08] MEDS: ENOXAPARIN SODIUM INJ 40 MG/0.4 ML DISP.SYRIN SUBCUT SCH (09:31)
[2017-11-08] MEDS: POLYETHYLENE GLYCOL 3350 POWDER 17 GM/1 PACKET PO SCH (09:31)
[2017-11-08] MEDS: METOPROLOL SUCCINATE 50 MG TAB.SR.24H PO SCH (09:34)
[2017-11-08] MEDS: LOSARTAN POTASSIUM 50 MG TABLET PO SCH (09:34)
[2017-11-08] MEDS: FLUTICASONE NASAL SPRAY 50 MCG/SPRY 120 SPRAY/16 GM NASL SCH (09:34)
--- NOTE | 2017-11-08 15:03 | PDOC PROGRESS REPORT ---
Subjective Progress Note for:: 11/08/17 Subjective:: No chest pain or difficulty with breathing. No nausea, vomiting or abdominal pain. I discussed her blood culture finding with bacteriology staff, cannot confirm contamination due to only one set of blood culture was completed. Reason For Visit: UROSEPSIS,ALTERED MENTAL STATUS Physical Exam Vital Signs: Temp Pulse Resp BP Pulse Ox 98.5 F 80 17 165/83 H 100 11/08/17 12:09 11/08/17 14:00 11/08/17 12:09 11/08/17 12:09 11/08/17 12:09 Intake & Output 11/07/17 11/08/17 11/09/17 06:59 06:59 06:59 Intake Total 2683 2522 236 Balance 2683 2522 236 Weight 94.3 kg 93.7 kg Physical Exam: General appearance: PRESENT: no acute distress, obese Head exam: PRESENT: atraumatic, normocephalic Eye exam: PRESENT: conjunctiva pink, EOMI, PERRLA. ABSENT: scleral icterus Ear exam: PRESENT: normal external ear exam Mouth exam: PRESENT: moist Teeth exam: PRESENT: poor dentition Respiratory exam: PRESENT: clear to auscultation [place], decreased breath sounds - at lung bases Cardiovascular exam: PRESENT: RRR. ABSENT: diastolic murmur, rubs, systolic murmur Vascular exam: ABSENT: pallor GI/Abdominal exam: PRESENT: normal bowel sounds, soft. ABSENT: distended, guarding, mass, organomegaly, rebound, tenderness Extremities exam: ABSENT: pedal edema Musculoskeletal exam: PRESENT: normal inspection Neurological exam: PRESENT: alert, awake, oriented to person, oriented to place , oriented to time, oriented to situation, CN II-XII grossly intact. ABSENT: motor sensory deficit Psychiatric exam: PRESENT: appropriate affect, normal mood. ABSENT: homicidal ideation, suicidal ideation Skin exam: PRESENT: dry, warm Results Laboratory Results: 11/07/17 05:10 11/07/17 05:10 Impressions: Chest X-Ray 11/05/17 04:40 IMPRESSION: No acute cardiopulmonary abnormality 2010 [employer]- All Rights Reserved Assessment & Plan - Diagnosis (1) UTI (urinary tract infection) Qualifiers: Urinary tract infection type: site unspecified Hematuria presence: with hematuria Qualified Code(s): N39.0 - Urinary tract infection, site not specified; R31.9 - Hematuria, unspecified; R31.9 - Hematuria, unspecified Is this a current diagnosis for this admission?: Yes Plan: D/C IV Rocephin after today's dose infusion. (2) Toxic metabolic encephalopathy Is this a current diagnosis for this admission?: Yes (3) Lactic acidosis Is this a current diagnosis for this admission?: Yes (4) Uncontrolled diabetes mellitus with hyperglycemia, with long-term current use of insulin Is this a current diagnosis for this admission?: Yes Plan: Hypoglycemia resolved. I will decrease her Lantus insulin dosage but maintain on sliding scale with Humalog insulin. (5) HLD (hyperlipidemia) Qualifiers: Hyperlipidemia type: unspecified Qualified Code(s): E78.5 - Hyperlipidemia , unspecified Is this a current diagnosis for this admission?: Yes (6) HTN (hypertension) Qualifiers: Hypertension type: essential hypertension Qualified Code(s): I10 - Essential (primary) hypertension Is this a current diagnosis for this admission?: Yes (7) Metastatic colon cancer to liver Is this a current diagnosis for this admission?: Yes - Time Time Spent with patient: 25-34 minutes Medications reviewed and adjusted accordingly: Yes Anticipated discharge: Home Within: within 24 hours - Inpatient Certification Based on my medical assessment, after consideration of the patient's comorbidities, presenting symptoms, or acuity I expect that the services needed warrant INPATIENT care.: Yes I certify that my determination is in accordance with my understanding of Medicare's requirements for reasonable and necessary INPATIENT services [42 CFR 412.3e].: Yes Medical Necessity: Need Close Monitoring Due to Risk of Patient Decompensation, Need For IV Fluids, Need For Continuous Telemetry Monitoring, Need for IV Antibiotics, Risk of Complication if Not Cared For in Hospital 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
[2017-11-08] MEDS: HUM INSULIN NPH/REG INSULIN HM 100 UNIT/1 ML 3 ML SUBCUT SCH (16:35)
[2017-11-08] MEDS ORDERED: TRAMADOL HCL 50 MG TABLET PO PRN (20:20)
[2017-11-09] MEDS: LANSOPRAZOLE 30 MG TAB.RAP.DR PO SCH (05:30)
[2017-11-09] MEDS ORDERED: CEFTRIAXONE SODIUM 1,000 MG in DEXTROSE 5%-WATER 50 ML IV SCH (06:00)
[2017-11-09] MEDS: HUM INSULIN NPH/REG INSULIN HM 100 UNIT/1 ML 3 ML SUBCUT SCH (08:30)
[2017-11-09] MEDS: NORMAL SALINE 1000 ML 1,000 ML IV PRN (08:35)
[2017-11-09] MEDS: ENOXAPARIN SODIUM INJ 40 MG/0.4 ML DISP.SYRIN SUBCUT SCH (09:15)
[2017-11-09] MEDS: POLYETHYLENE GLYCOL 3350 POWDER 17 GM/1 PACKET PO SCH (09:31)
[2017-11-09] MEDS: LOSARTAN POTASSIUM 50 MG TABLET PO SCH (09:32)
[2017-11-09] MEDS: FLUTICASONE NASAL SPRAY 50 MCG/SPRY 120 SPRAY/16 GM NASL SCH (09:32)
[2017-11-09] MEDS: METOPROLOL SUCCINATE 50 MG TAB.SR.24H PO SCH (09:33)
[2017-11-09 13:05] VITALS: BP 154/69
--- NOTE | 2017-11-09 13:55 | PDOC DISCHARGE SUMMARY ---
General - Admit/Disc Date/PCP Admission Date/Primary Care Provider: 11/05/17 06:45 DAVID NORTON Discharge Date: 11/09/17 - Discharge Diagnosis (1) UTI (urinary tract infection) Is this a current diagnosis for this admission?: Yes (2) Toxic metabolic encephalopathy Is this a current diagnosis for this admission?: Yes (3) Lactic acidosis Is this a current diagnosis for this admission?: Yes (4) Uncontrolled diabetes mellitus with hyperglycemia, with long-term current use of insulin Is this a current diagnosis for this admission?: Yes (5) HLD (hyperlipidemia) Is this a current diagnosis for this admission?: Yes (6) HTN (hypertension) Is this a current diagnosis for this admission?: Yes (7) Metastatic colon cancer to liver Is this a current diagnosis for this admission?: Yes - Additional Information Resuscitation Status: Full Code Discharge Diet: Cardiac, Diabetic Discharge Activity: Activity As Tolerated, Slowly Increase Activity Home Medications: Fluticasone Propionate [Flonase Nasal [place] 50 Mcg/[place] 16 gm] 1 spray NASL DAILY 11/05/17 Granisetron HCl [Kytril] 1 mg PO Q12HP PRN 11/05/17 Hum Insulin NPH/Reg Insulin Hm [Novolin 70-30 100 Unit/ml Vial] 70 units SQ QPM 11/05/17 Hum Insulin NPH/Reg Insulin Hm [Novolin 70-30 100 Unit/ml Vial] 90 units SQ QAM 11/05/17 Insulin Aspart [Novolog Insulin (Aspart) 100 unit/mL] 0 unit SQ .SLIDING SCALE 11/05/17 Metoprolol Succinate [Toprol Xl 50 mg Tab.sr] 50 mg PO DAILY 11/05/17 Olmesartan Medoxomil [Benicar] 20 mg PO DAILY 11/05/17 Omeprazole 20 mg PO DAILY 11/05/17 Pegfilgrastim [Neulasta Inj 6 mg/0.6 ml Disp.syrin] 6 mg SQ .ASDIR 11/05/17 Polyethylene Glycol 3350 [Miralax Powder 17 gm/Packet] 17 gm PO DAILY 11/05/17 Tramadol HCl [Ultram 50 mg Tablet] 50 mg PO Q6HP PRN 11/05/17 History of Present Illness Patient complains of: Generalized debility, Leukocytosis History of Present Illness: TRELL ISLAS is a 72 year old female known to my practice who presented to the ED via EMS service activated by friend due to patient inability to get off the floor. Patient reported ongoing generalized weakness at the time of my evaluation. She denied any chest pain or difficulty with breathing. She was not definite about fever but admitted to always been chill. She is currently on chemotherapy infusion for metastatic colon cancer. She denied any diarrhea but admitted to nausea and occasional vomiting. She denied flank pain, definite dysuria, or hematuria.Her initial evaluation in the ED was significant for episodes of confusion and poor contribution to her acute illness. She appeared dehydrated with tachycardia and tachypnea. Her laboratory evaluation revealed abnormal urinalysis, significant hyperglycemia, and leukocytosis with lactic acidosis suggestive of sepsis. She was advised hospitalization for further evaluation and management. Her morbidities include metastatic colon cancer with liver involvement, Diabetes mellitus type 2, hypertension, hyperlipdemia, and mixed anxiety with depressive disorder. Hospital Course Hospital Course: Patient was managed with IV Rocephin for presumed bacterial infection with cystitis and possible sepsis due to severely elevated leukocytosis, generalized debility with abnormal urinalysis. Her final urine culture revealed mixed urogenital thania and blood culture x 1 set was remarkable for staphylococcus [place]. The later was considered contamination in view of her response to IV Rocephin coverage and resistance on sensitivity panel. Patient remain afebrile. No nausea or vomiting. She denied any UTI symptoms presently. she will be discharge home today with follow up appoint as instructed upon discharge. Physical Exam Vital Signs: Temp Pulse Resp BP Pulse Ox 98.2 F 80 12 154/69 H 100 11/09/17 11:10 11/09/17 11:10 11/09/17 11:10 11/09/17 13:02 11/09/17 11:10 Intake & Output 11/08/17 11/09/17 11/10/17 06:59 06:59 06:59 Intake Total 2522 1436 1694 Balance 2522 1436 1694 Weight 93.7 kg 91.7 kg Physical Exam: General appearance: PRESENT: no acute distress, obese Head exam: PRESENT: atraumatic, normocephalic Eye exam: PRESENT: conjunctiva pink, EOMI, PERRLA. ABSENT: scleral icterus Ear exam: PRESENT: normal external ear exam Mouth exam: PRESENT: moist Teeth exam: PRESENT: poor dentition Respiratory exam: PRESENT: clear to auscultation [place] Cardiovascular exam: PRESENT: RRR. ABSENT: diastolic murmur, rubs, systolic murmur Vascular exam: ABSENT: pallor GI/Abdominal exam: PRESENT: normal bowel sounds, soft. ABSENT: distended, guarding, mass, organomegaly, rebound, tenderness Extremities exam: ABSENT: pedal edema Musculoskeletal exam: PRESENT: normal inspection Neurological exam: PRESENT: alert, awake, oriented to person, oriented to place , oriented to time, oriented to situation, CN II-XII grossly intact. ABSENT: motor sensory deficit Psychiatric exam: PRESENT: appropriate affect, normal mood. ABSENT: homicidal ideation, suicidal ideation Skin exam: PRESENT: dry, warm Results Laboratory Results: 11/07/17 05:10 11/07/17 05:10 Impressions: Chest X-Ray 11/05/17 04:40 IMPRESSION: No acute cardiopulmonary abnormality 2010 [employer]- All Rights Reserved Qualifiers - * PATIENT BEING DISCHARGED WITH ANY OF THE FOLLOWING DIAGNOSIS: No Plan Discharge Plan: Discharge home today. Follow up with Dr. Duncan and myself as instructed upon discharge. Time Spent: Greater than 30 Minutes - care coordination and post discharge care plan.
== END 2017-11-09 15:15 | disposition home health service (06) | DRG 689 ==
LOC: ER 01:46 → EH 06:45 → 4W 15:05 → 3W 11-06 18:28
PROVIDERS: ADMIT Internal Medicine Geriatric Medicine; ATTEND Internal Medicine Geriatric Medicine
DX: N39.0 Urinary tract infection, site not specified (principal); G92 Toxic encephalopathy; E87.2 Acidosis; C78.7 Secondary malignant neoplasm of liver and intrahepatic bile duct; C19 Malignant neoplasm of rectosigmoid junction; E11.65 Type 2 diabetes mellitus with hyperglycemia; E78.00 Pure hypercholesterolemia, unspecified; I10 Essential (primary) hypertension; K21.9 Gastro-esophageal reflux disease without esophagitis; F41.8 Other specified anxiety disorders; Z79.4 Long term (current) use of insulin; Z79.899 Other long term (current) drug therapy
CPT/HCPCS: 36415; 71045; 80053; 81001; 82803; 82962; 83036; 83605; 84484; 85025; 87040; 87077; 87086; 87186; 96360; 99285; J0696; J1815; J3490

== ENCOUNTER 2017-12-17 23:16 | Emergency (ER) | payer MEDICARE ==
--- NOTE | 2017-12-18 00:02 | ER Document Report ---
ED Fall - General Chief Complaint: Fall Injury Stated Complaint: FALL Time Seen by Provider: 12/17/17 23:39 Mode of Arrival: Medic Information source: Patient Notes: 72-year-old female presented to ED for complaint of low back pain. She states she fell at home yesterday after slipping on the stairs. She states she did not fall on the day she came into the emergency room. She states that her knees and hips were hurting at home but they no longer hurt. She states she does have some low back pain. She states she took some Tylenol at 11 AM but has not had anything for pain or discomfort since then. She states she has a history of colon and liver cancer and takes chemo and does have an IV connected at this time. She states she has been taking chemo for a year. She states her oncologist is Dr. Duncan and her primary care doctor is Aditya. She is alert and oriented respirations regular and unlabored speaking in full sentences. She has no discomfort to palpation except for in her lower back and she said it does not hurt as much she is sedated at home. TRAVEL OUTSIDE OF THE [place] IN LAST 30 DAYS: No - HPI Occurred: Yesterday - States she fell on Saturday Where: Home Context: Slipped - On the steps Associated symptoms: None Location of injury/pain: Back - States her low back was hurting worse at home but it still hurts, Knee - As her knees were hurting at home as well as her right hip but they no longer hurt Quality of pain: Sharp Severity: Moderate Pain Level: 3 - Related data Allergies/Adverse Reactions: No Known Allergies Allergy (Verified 08/06/17 15:50) Past Medical History - General Information source: Patient - Social History Smoking Status: Never Smoker Frequency of alcohol use: None Drug Abuse: None Family History: Reviewed & Not Pertinent Patient has suicidal ideation: No Patient has homicidal ideation: No - Past Medical History Cardiac Medical History: Reports: Hx Hypercholesterolemia, Hx Hypertension Pulmonary Medical History: Reports: None EENT Medical History: Reports: None Neurological Medical History: Reports: None Endocrine Medical History: Reports: Hx Diabetes Mellitus Type 2 Renal/ Medical History: Reports: None Malignancy Medical History: Reports: Hx Colorectal Cancer - with liver metastases and currently on chemotherapy. GI Medical History: Reports: Hx Gastroesophageal Reflux Disease, Hx Colonoscopy Musculoskeletal Medical History: Reports Hx Musculoskeletal Deformity, Reports Hx Musculoskeletal Trauma Skin Medical History: Reports None Psychiatric Medical History: Reports: Hx Depression Traumatic Medical History: Reports: None Infectious Medical History: Reports: None Past Surgical History: Reports: Hx Hysterectomy, Hx Vascular Surgery - Port for chemo, Other - Biopsies of colon - Immunizations Immunizations up to date: Yes Hx Diphtheria, Pertussis, Tetanus Vaccination: Yes Review of Systems - Review of Systems Constitutional: No symptoms reported EENT: No symptoms reported Cardiovascular: No symptoms reported Respiratory: No symptoms reported Gastrointestinal: No symptoms reported Genitourinary: No symptoms reported Female Genitourinary: No symptoms reported Musculoskeletal: Back pain, Joint pain - She had knee and hip pain earlier but denies knee and hip pain at this time. She has full range of motion of her knees and hips Skin: No symptoms reported Hematologic/Lymphatic: No symptoms reported Neurological/Psychological: No symptoms reported -: Yes All other systems reviewed and negative Physical Exam - Vital signs Vitals: Temp Pulse Resp BP Pulse Ox 98.2 F 82 20 170/74 H 94 12/17/17 23:25 12/17/17 23:25 12/17/17 23:25 12/17/17 23:25 12/17/17 23:25 Interpretation: Hypertensive - General General appearance: Appears well, Alert - HEENT Head: Normocephalic, Atraumatic Eyes: Normal Pupils: PERRL - Respiratory Respiratory status: No respiratory distress Chest status: Nontender Breath sounds: Normal Chest palpation: Normal - Cardiovascular Rhythm: Regular Heart sounds: Normal auscultation Murmur: No - Abdominal Inspection: Healed incision, Morbidly Obese Distension: No distension Bowel sounds: Normal Tenderness: Nontender Organomegaly: No organomegaly - Back Back: Normal, Tender. No: Vertebra tenderness - Bilateral - Extremities General upper extremity: Normal inspection, Nontender, Normal color, Normal ROM , Normal temperature General lower extremity: Normal inspection, Nontender, Normal color, Normal ROM , Normal temperature, Normal weight bearing - Neurological Neuro grossly intact: Yes Cognition: Normal Orientation: AAOx4 [place] Coma Scale Eye Opening: Spontaneous [place] Coma Scale Verbal: Oriented Elsa Coma Scale Motor: Obeys Commands [place] Coma Scale Total: 15 Speech: Normal Motor strength normal: LUE, RUE, LLE, RLE Sensory: Normal - Psychological Associated symptoms: Normal affect, Normal mood - Skin Skin Temperature: Warm Skin Moisture: Dry Skin Color: Normal Course - Re-evaluation Re-evalutation: 12/18/17 01:25 Discussed lumbar spine x-ray with patient. I consulted Dr. Thurston for the x- ray results. He states we should get a CT abdomen pelvis. Patient states she was not going to get a CAT scan she did not need one and she did not want one. She states she had a PET scan in July and the doctor did not say she had anything then and she does not go to get a CAT scan now. She states she just wants to go home she is ready to go home. Patient does have chemotherapy running through a catheter which is what they saw as a nonspecific catheter. She does have colorectal cancer with liver metastases. And she did have a PET scan in July. Patient states she will call a cab to get home when I discharge her. And she states she is ready to go that she is feeling better. Patient was able to get from the bed to the commode only requiring help to get out of the hospital bed. Patient verbalizes understanding of need to follow-up with her primary doctor tomorrow and she states she will call them. Written report of the x-ray was given to patient to follow-up with her primary doctor. - Vital Signs Vital signs: Temp Pulse Resp BP Pulse Ox 98.2 F 78 15 140/87 H 99 12/18/17 01:46 12/18/17 01:46 12/18/17 01:46 12/18/17 01:46 12/18/17 01:46 - Diagnostic Test Radiology reviewed: Image reviewed, Reports reviewed Discharge - Discharge Clinical Impression: Fall Qualifiers: Encounter type: initial encounter Qualified Code(s): W19.XXXA - Unspecified fall, initial encounter Low back pain Qualifiers: Chronicity: chronic Back pain laterality: bilateral Sciatica presence: without sciatica Qualified Code(s): M54.5 - Low back pain Condition: Stable Disposition: HOME, SELF-CARE Additional Instructions: LOW BACK PAIN: Three out of every four people will have an episode of disabling back pain during their lifetime. Most commonly the pain is due to straining of the muscles and ligaments in the low back. Usual treatment includes: (1) Rest on a firm surface. Avoid lying on your stomach. (2) Ice pack the painful area. After a few days, gentle heat may be used intermittently to relax the area, or ice packs can be continued. (3) Medication may be needed -- muscle relaxers and antiinflammatory medicines are commonly used. (4) As the back improves, exercises are prescribed to strengthen the back and abdominal muscles. Your doctor will advise you on the proper care for your back at each stage in your recovery. You may be better in a few days -- or healing may take several weeks. If new symptoms of a "herniated disc" (radiation of pain, numbness, or tingling down the back of the leg or weakness in the leg) occur, you should be re-examined. Further testing may be necessary. Acetaminophen Acetaminophen may be taken for pain relief or fever control. It's much safer than aspirin, offering a wider range of "safe" dosages. It is safe during . Some brand names are Tylenol, Panadol, Datril, Anacin 3, Tempra, and Liquiprin. Acetaminophen can be repeated every four hours. The following are maximum recommended dosages: WEIGHT Dose Drops Elixir Chewable( 80mg) (LBS.) drprs=droppers tsp=teaspoon 6 40 mg .4 ml (1/2) 6-11 80 mg .8 ml (full) 1/2 tsp 1 tab 12-16 120 mg 1 1/2 drprs 3/4 tsp 1 1/2 tabs 17-23 160 mg 2 drprs 1 tsp 2 tabs 24-30 240 mg 3 drprs 1 1/2 tsp 3 tabs 30-35 320 mg 2 tsp 4 tabs 36-41 360 mg 2 1/4 tsp 4 1 /2 tabs 42-47 400 mg 2 1/2 tsp 5 tabs 48-53 480 mg 3 tsp 6 tabs 54-59 520 mg 3 1/4 tsp 6 1 /2 tabs 60-64 560 mg 3 1/2 tsp 7 tabs 65-70 600 mg 3 3/4 tsp 7 1 /2 tabs 71-76 640 mg 4 tsp 8 tabs 77-82 720 mg 4 1/2 tsp 9 tabs 83-88 800 mg 5 tsp 10 tabs >89 pounds or adults 650 mg to 900 mg Acetaminophen can be repeated every four hours. Maximum daily dose not to exceed 4000 mg. These maximum recommended dosages are slightly higher than the dosages written on the product container, but these dosages are very safe and well below the toxic dosage for acetaminophen. ICE PACKS: Apply ice packs frequently against the painful area. Many different schedules are recommended, such as "20 minutes on, 20 minutes off" or "one hour ice, two hours rest." If you need to work, you may need to go longer between ice treatments. You should plan to have the area ice packed AT LEAST one fourth of the time. The ice should be applied over the wrap, tape, or splint, or over a layer of cloth -- not directly against the skin. Some ice bags have a built-in cloth and can be put directly on the skin. WARM PACKS: After approximately two days, apply gentle heat (such as a heating pad or hot water bottle) for about 20 to 30 minutes about every two hours -- at least four times daily. Warmth and elevation will help you make a more rapid recovery , and will ease the pain considerably. Do not use HOT heat, and never apply heat for longer than 30 minutes. The continuous heat can invisibly damage skin and muscles -- even when no burn is seen on the surface. Damaged muscles can make you MORE sore. Call your doctor in the morning to schedule follow-up appointment for your low back pain. I have given you the x-ray results for you to discuss with your primary care doctor and your oncologist for them to decide if they need want to get a CAT scan that you refused tonight. FOLLOW-UP CARE: If you have been referred to a physician for follow-up care, call the physician s office for an appointment as you were instructed or within the next two days. If you experience worsening or a significant change in your symptoms, notify the physician immediately or return to the Emergency Department at any time for re-evaluation. Forms: Elevated Blood Pressure Referrals: DAVID NORTON MD [Primary Care Provider] - Follow up tomorrow
--- NOTE | 2017-12-18 00:43 | RADIOLOGY REPORT (SQ) ---
EXAM DESCRIPTION: XR LUMBAR SPINE ANTEROPOSTERIOR, LATERAL, AND OBLIQUES COMPLETED DATE/TME: 12/18/2017 00:02 CLINICAL HISTORY: 72 years Female, low back pain worse today COMPARISON: None. Findings: Normal alignment and curvature. Mild physiologic T11 anterior vertebral wedging. Mild disc desiccation. Mild lower lumbar spondylosis. Left paracentral pelvic clips. Possible left nephrolithiasis measures up to 1.2 cm each. Extraspinal structures are grossly intact. Partially imaged nonspecific catheter. IMPRESSION: No acute findings of XR LUMBAR SPINE ANTEROPOSTERIOR, LATERAL, AND OBLIQUES. Possible left nephrolithiasis. .
[2017-12-18 01:48] VITALS: BP 140/87
== END 2017-12-18 01:49 | disposition home or self-care (01) ==
LOC: ER 23:16
DX: M54.5 Low back pain (principal); W10.9XXA Fall (on) (from) unspecified stairs and steps, initial encounter; Y92.009 Unspecified place in unspecified non-institutional (private) residence as the place of occurrence of the external cause; I10 Essential (primary) hypertension; E11.9 Type 2 diabetes mellitus without complications
CPT/HCPCS: 72110; 99283

== ENCOUNTER 2017-12-25 03:56 | Emergency (ER) | payer MEDICARE, BC, OTHER ==
[2017-12-25] MEDS ORDERED: TRANEXAMIC ACID INJ/PF 1,000 MG/10 ML SDV IV ONE ×2 (05:18→06:54)
--- NOTE | 2017-12-25 06:37 | ER Document Report ---
ED General - General Stated Complaint: FLANK PAIN Time Seen by Provider: 12/25/17 06:31 Notes: Patient is a pleasant 72-year-old female with a history of colon cancer he receives chemotherapy weekly. Last chemotherapy was 1 week ago. She still having bloody nose tonight. Said continued bleeding therefore she came to the ER. Multiple skin on the right nare. She still having some blood come out of the left nares well. She is not feeling much blood going in the back of her throat. No difficulty breathing or swallowing. No other complaints at this time. Her oncologist is Dr. Duncan. TRAVEL OUTSIDE OF THE [place] IN LAST 30 DAYS: No - Related Data Allergies/Adverse Reactions: No Known Allergies Allergy (Verified 08/06/17 15:50) Past Medical History - Social History Smoking Status: Unknown if Ever Smoked Frequency of alcohol use: None Drug Abuse: None Family History: Reviewed & Not Pertinent - Past Medical History Cardiac Medical History: Reports: Hx Hypercholesterolemia, Hx Hypertension Neurological Medical History: Denies: Hx Seizures Endocrine Medical History: Reports: Hx Diabetes Mellitus Type 2 Renal/ Medical History: Denies: Hx Peritoneal Dialysis Malignancy Medical History: Reports: Hx Colorectal Cancer - with liver metastases and currently on chemotherapy. GI Medical History: Reports: Hx Gastroesophageal Reflux Disease, Hx Colonoscopy Musculoskeletal Medical History: Reports Hx Musculoskeletal Deformity, Reports Hx Musculoskeletal Trauma Psychiatric Medical History: Reports: Hx Depression Past Surgical History: Reports: Hx Hysterectomy, Hx Vascular Surgery - Port for chemo, Other - Biopsies of colon - Immunizations Immunizations up to date: Yes Hx Diphtheria, Pertussis, Tetanus Vaccination: Yes Review of Systems - Review of Systems Notes: My Normal Review Basic REVIEW OF SYSTEMS: CONSTITUTIONAL : Denies fever, chills, or sweats. Denies recent illness. EENT: Epistaxis. RESPIRATORY: Denies cough, cold, or chest congestion. Denies shortness of breath, difficulty breathing, or wheezing. GASTROINTESTINAL: Denies abdominal pain. Denies nausea, vomiting, or diarrhea. SKIN: Denies rash or skin lesions. HEMATOLOGIC : She is chemotherapy. NEUROLOGICAL: Denies altered mental status or loss of consciousness. ALL OTHER SYSTEMS REVIEWED AND NEGATIVE. Physical Exam - Notes Notes: General Appearance: Well nourished, alert, cooperative, no acute distress, no obvious discomfort. Well-appearing. Vitals: reviewed, See vital signs table. Eyes: PERRL, EOMI, Conjuctiva clear Mouth: No decreasd moisture Throat: No tonsillar inflammation, No airway obstruction, No lymphadenopathy Nares: Blood coming from mainly the right nare. Small no blood coming from left nares well. Large clot out of the right nare when patient blew her nose. Do not see an obvious anterior source. Neck: Supple, no neck tenderness Skin: warm, dry, appropriate color, no rash Neuro: speech clear, oriented x 3, normal affect, responds appropriately to questions. Course - Re-evaluation Re-evalutation: 12/25/17 06:35 Initially had patient blow her nose. We then packed the nose with a cotton ball soaked with lidocaine 2% with epinephrine. Left this in for 20 minutes. When I remove the cotton ball the bleeding had slowed but she still continue have a slow trickle. I therefore sprayed tranexamic acid into both nares and then placed a cotton ball soaked in tranexamic acid in the right nare. This was left in for 20 minutes and then removed. Patient still had a continuous slow trickle from the right nare. I therefore placed a Merocel packing in the right nare. Patient started having a bit of bleeding from the left nare and therefore there is no packing was placed in left nares well. Both packings have now been in for 30 minutes the patient has no further bleeding and feels well. Patient will be placed on Keflex. We will give her follow-up with ENT doctor. I informed her she must have the packing was removed within 2 days. If she cannot get into the ENT doctor's office within 2 days and she is to return to the ER for packing removal. She is to return to ER immediately if she has any fevers, severe pain, recurrent bleeding, or she feels unwell. Patient currently has no blood going in the back of her throat. Bleeding seems to be controlled. Patient agrees with plan and will be discharged home. Patient does have a leukocytosis. She says that her last white blood cell count was actually improved at 35. Today is 30 so it is continuing to improve so this is not an acute phase reaction. She does have some thrombocytopenia. Hemoglobin is 10 and therefore she does not require any transfusion. Dictation of this chart was performed using voice recognition software; therefore, there may be some unintended grammatical errors. Discharge - Discharge Clinical Impression: Epistaxis, Thrombocytopenia Condition: Good Disposition: HOME, SELF-CARE Additional Instructions: We have placed 2 nasal packings. These need to be removed within 48 hours. Please call the ENT doctor, Dr. Babcock, to be reevaluated for packing removal. If you cannot follow up with him by Saturday you should return to the ER and we will remove the packing. Please return to the ER immediately. Please take the antibiotic as prescribed. Please return to the ER immediately if you develop fevers, recurrent bleeding, or feel unwell. Prescriptions: Cephalexin Monohydrate [Keflex 500 mg Capsule] 500 mg PO BID #14 capsule Referrals: KIMANI BABCOCK MD [ACTIVE STAFF] - Follow up tomorrow (Please call office this morning to be seen tomorrow or early Saturday for packing removal)
[2017-12-25] MEDS ORDERED: LIDOCAINE 1%/EPINEPHRINE INJ 20 ML VIAL INJ ONE (06:56)
[2017-12-25 07:43] VITALS: BP 186/87
[2017-12-25 08:01] LABS: HEMATOCRIT 33.1 % (36.0-47.0); HEMOGLOBIN 10.4 g/dL (12.0-15.5); MEAN CORPUSCULAR HEMOGLOBIN 29.5 pg (27.0-33.4); MEAN CORPUSCULAR HGB CONC 31.3 g/dL (32.0-36.0); MEAN CORPUSCULAR VOLUME 94 fl (80-97); RED BLOOD COUNT 3.52 10^6/uL (3.72-5.28); RED CELL DISTRIBUTION WIDTH 20.6 % (11.5-14.0)
[2017-12-25 08:05] LABS: PLATELET COUNT 82 10^3/uL (150-450)
[2017-12-25 08:06] LABS: WHITE BLOOD COUNT 30.5 10^3/uL (4.0-10.5)
[2017-12-25 08:09] LABS: ABSOLUTE MONOCYTES # (MANUAL) 0.9 10^3/uL (0.1-1.4); ABSOLUTE NEUTROPHILS# (MANUAL) 25.6 10^3/uL (1.7-8.2); ANISOCYTOSIS 2+; BASOPHILS % (MANUAL) 0 % (0-2); EOSINOPHILS % (MANUAL) 0 % (0-6); LYMPHOCYTES % (MANUAL) 13 % (13-45); MONOCYTES % (MANUAL) 3 % (3-13); OVALOCYTES SLIGHT; PLATELET COMMENT DECREASED; PLATELET LARGE PRESENT; POIKILOCYTOSIS SLIGHT; SCHISTOCYTES SLIGHT; SEGMENTED NEUTROPHILS % (MAN) 84 % (42-78); TOTAL CELLS COUNTED 100; TOXIC GRANULATION SLIGHT
[2017-12-25 11:38] LABS: PATH REVIEW PATHOLOGIST REVIEWED
== END 2017-12-25 06:51 | disposition home or self-care (01) ==
LOC: ER 03:56
DX: R04.0 Epistaxis (principal); D69.6 Thrombocytopenia, unspecified; I10 Essential (primary) hypertension; E11.9 Type 2 diabetes mellitus without complications; C19 Malignant neoplasm of rectosigmoid junction; C78.7 Secondary malignant neoplasm of liver and intrahepatic bile duct; Z79.899 Other long term (current) drug therapy; D72.829 Elevated white blood cell count, unspecified
CPT/HCPCS: 99284; 36415; 85025; 30901; J3490

== ENCOUNTER 2018-02-03 10:34 | Inpatient (IN) | payer BC, MEDICARE ==
[2018-02-03] MEDS ORDERED: OXYMETAZOLINE HCL 0.05% NASAL SPRAY 15 ML BOTTLE NASL ONE ×2 (11:38→13:30)
--- NOTE | 2018-02-03 13:05 | ER Document Report ---
ED General - General Mode of Arrival: Ambulatory Information source: Patient TRAVEL OUTSIDE OF THE [place] IN LAST 30 DAYS: No <CLAUDIA MEJÍA - Last Filed: 02/03/18 13:46> <TOYA FALK - Last Filed: 02/03/18 17:14> - General Chief Complaint: Nose Bleed Stated Complaint: NOSE BLEED Time Seen by Provider: 02/03/18 11:04 Notes: Patient is a 72 year old female with colon cancer (currently on chemotherapy) presents to the emergency department complaining of a nosebleed onset yesterday evening. Patient states the bleeding has been constant since the onset and descends from the left nostril. She further mentions a large clot coming from left nostril. She states she had similar symptoms on 12/25/2017 and was discharged from this ED after having both nostril packed and given Afrin nasal spray. She was also instructed to follow up with ENT. Patient states she has not used the Afrin since the onset of her symptoms yesterday. Of significance, patient has a known history of low platelet count. (CLAUDIA MEJÍA) - Related Data Allergies/Adverse Reactions: No Known Allergies Allergy (Verified 02/03/18 10:34) Past Medical History - General Information source: Patient - Social History Smoking Status: Unknown if Ever Smoked Family History: Reviewed & Not Pertinent Patient has suicidal ideation: No Patient has homicidal ideation: No - Past Medical History Cardiac Medical History: Reports: Hx Hypercholesterolemia, Hx Hypertension Endocrine Medical History: Reports: Hx Diabetes Mellitus Type 2 Malignancy Medical History: Reports: Hx Colorectal Cancer - with liver metastases and currently on chemotherapy. GI Medical History: Reports: Hx Gastroesophageal Reflux Disease, Hx Colonoscopy Musculoskeletal Medical History: Reports Hx Musculoskeletal Deformity, Reports Hx Musculoskeletal Trauma Psychiatric Medical History: Reports: Hx Depression Past Surgical History: Reports: Hx Hysterectomy, Hx Vascular Surgery - Port for chemo, Other - Biopsies of colon - Immunizations Immunizations up to date: Yes Hx Diphtheria, Pertussis, Tetanus Vaccination: Yes <CLAUDIA MEJÍA - Last Filed: 02/03/18 13:46> Review of Systems - Review of Systems Constitutional: No symptoms reported EENT: See HPI Cardiovascular: No symptoms reported Respiratory: No symptoms reported Gastrointestinal: No symptoms reported Genitourinary: No symptoms reported Female Genitourinary: No symptoms reported Musculoskeletal: No symptoms reported Skin: No symptoms reported Hematologic/Lymphatic: No symptoms reported Neurological/Psychological: No symptoms reported -: Yes All other systems reviewed and negative <CLAUDIA MEJÍA - Last Filed: 02/03/18 13:46> Physical Exam <CLAUDIA MEJÍA - Last Filed: 02/03/18 13:46> - Vital signs Vitals: Temp Pulse Resp BP Pulse Ox 98.7 F 89 24 H 124/68 96 02/03/18 10:38 02/03/18 10:38 02/03/18 10:38 02/03/18 10:38 02/03/18 10:38 - Notes Notes: GENERAL: Alert, interacts well. No acute distress. HEAD: Normocephalic, atraumatic. EYES: Pupils equal, round, and reactive to light. Extraocular movements intact. ENT: Oral mucosa moist, tongue midline. Dried blood around left nostril, no active bleeding, no obvious source of bleeding. NECK: Full range of motion. Supple. Trachea midline. LUNGS: Clear to auscultation bilaterally, no wheezes, rales, or rhonchi. No respiratory distress. HEART: Regular rate and rhythm. No murmurs, gallops, or rubs. ABDOMEN: Soft. Obese, non-tender. Non-distended. Bowel sounds present in all 4 quadrants. EXTREMITIES: Moves all 4 extremities spontaneously. NEUROLOGICAL: Alert and oriented x3. Normal speech. PSYCH: Normal affect, normal mood. SKIN: Warm, dry, normal turgor. No rashes or lesions noted. (ALFONZOCLAUDIA) Course - Laboratory Result Diagrams: 02/03/18 13:30 02/03/18 13:30 <CLAUDIA MEJÍA - Last Filed: 02/03/18 13:46> - Laboratory Result Diagrams: 02/03/18 13:30 02/03/18 13:30 - Consults Dr. Hylton Time consulted: 17:07 Consulted provider: will see as inpatient <TOYA FALK - Last Filed: 02/03/18 17:14> - Re-evaluation Re-evalutation: 02/03/18 13:39 PROCEDURE: Afrin nose spray was sprayed into the left nostril. Afterwards an Afrin soaked cotton ball was twisted into torpedo shape and placed gently up into the nostril and left to ensure hemostasis. 02/03/18 16:37 On reexam, there was quite a lot of clot that had accumulated proximal to the cotton ball. This was removed initially by her gently blowing her nose and using forceps to pull it out, and then she sniffed vigorously and was able to spit out a clot approximately 2 by 3 cm x 1/2 cm. There was no further bleeding seen at that time. Another Afrin soaked cotton ball was placed in the nostril after bacitracin ointment had been placed into both nostrils. 02/03/18 16:39 The patient had reported passing blood per rectum when she went to the restroom after she had been triaged and initially treated in the PIT(physician in triage) area. A Hemoccult test was ordered for that specimen, however it appears that it was discarded and never read collected. I did a rectal exam on the patient, there was no stool, however up inside the rectum I did find small amount of maroon blood mixed in mucus. The patient's hemoglobin today is 9.1, and her platelet count is 124,000. 2 months ago just prior to receiving chemo, her hemoglobin was 10.7 with platelet count of 143,000. When she was seen here with noseedied on 12/25/2017, her hemoglobin was 10.4 with platelet count of 82,000. The patient has not had any further rectal bleeding reported and has not felt any urge to go to the restroom. The rectal exam showed only a very small amount of dark blood and mucus found as high up as my finger could go. This would suggest there has not been additional significant bleeding since the initial stool Hemoccult was ordered 5 hours ago. The patient is resistant to staying, the family wants her to stay, at this time they are discussing it over cell phones and in person. (TOYA FALK) - Vital Signs Vital signs: Temp Pulse Resp BP Pulse Ox 98.7 F 89 24 H 124/68 96 02/03/18 10:38 02/03/18 10:38 02/03/18 10:38 02/03/18 10:38 02/03/18 10:38 - Laboratory Laboratory results interpreted by me: 12/24/18 12/24/18 12/24/18 13:30 13:30 13:30 WBC 33.3 H* RBC 3.00 L Hgb 9.1 L Hct 29.1 L MCHC 31.4 L RDW 20.3 H Plt Count 124 L Seg Neuts % (Manual) 81 H Band Neutrophils % 1 L Lymphocytes % (Manual) 11 L Abs Neuts (Manual) 27.3 H Abs Monocytes (Manual) 2.3 H APTT 41.2 H Carbon Dioxide 33 H Alkaline Phosphatase 219 H Albumin 3.4 L Discharge <CLAUDIA MEJÍA - Last Filed: 02/03/18 13:46> - Discharge Admitting Provider: Aditya Unit Admitted: Telemetry - Dr. Hylton covering <TOYA FALK - Last Filed: 02/03/18 17:14> - Discharge Clinical Impression: Anterior epistaxis, Lower GI bleeding Condition: Stable Disposition: ADMITTED INPATIENT Referrals: DAVID NORTON MD [Primary Care Provider] - Follow up as needed Scribe Attestation: 02/03/18 13:40 I personally performed the services described in the documentation, reviewed and edited the documentation which was dictated to the scribe in my presence, and it accurately records my words and actions. (TOYA FALK) Scribe Documentation - Scribe Written by Heriberto:: Heriberto Gallegos, 02/03/2018 13:12 acting as scribe for :: Carlos <CLAUDIA MEJÍA - Last Filed: 02/03/18 13:46>
[2018-02-03 13:42] LABS: HEMATOCRIT 29.1 % (36.0-47.0); HEMOGLOBIN 9.1 g/dL (12.0-15.5); MEAN CORPUSCULAR HEMOGLOBIN 30.4 pg (27.0-33.4); MEAN CORPUSCULAR HGB CONC 31.4 g/dL (32.0-36.0); MEAN CORPUSCULAR VOLUME 97 fl (80-97); PLATELET COUNT 124 10^3/uL (150-450); RED CELL DISTRIBUTION WIDTH 20.3 % (11.5-14.0)
[2018-02-03 13:47] LABS: INTERNATIONAL RATION (INR) 1.04; PROTHROMBIN TIME 14.1 SEC (11.4-15.4)
[2018-02-03 13:48] LABS: PARTIAL THROMBOPLASTIN TIME 41.2 SEC (23.5-35.8)
[2018-02-03 13:57] LABS: ABSOLUTE LYMPHOCYTES# (MANUAL) 3.7 10^3/uL (0.5-4.7); ABSOLUTE MONOCYTES # (MANUAL) 2.3 10^3/uL (0.1-1.4); ABSOLUTE NEUTROPHILS# (MANUAL) 27.3 10^3/uL (1.7-8.2); BAND NEUTROPHILS % (MANUAL) 1 % (3-5); BASOPHILS % (MANUAL) 0 % (0-2); EOSINOPHILS % (MANUAL) 0 % (0-6); LYMPHOCYTES % (MANUAL) 11 % (13-45); MONOCYTES % (MANUAL) 7 % (3-13); SEGMENTED NEUTROPHILS % (MAN) 81 % (42-78); TOTAL CELLS COUNTED 100
[2018-02-03 13:58] LABS: ANISOCYTOSIS 2+; OVALOCYTES SLIGHT; PLATELET COMMENT DECREASED; POIKILOCYTOSIS SLIGHT; TOXIC GRANULATION 2+
[2018-02-03 14:02] LABS: ALANINE AMINOTRANSFERASE 19 U/L (9-52); ALBUMIN 3.4 g/dL (3.5-5.0); ALKALINE PHOSPHATASE 219 U/L (38-126); ANION GAP 6 (5-19); ASPARTATE AMINO TRANSFERASE 33 U/L (14-36); BILIRUBIN,DIRECT 0.2 mg/dL (0.0-0.4); BILIRUBIN,TOTAL 0.7 mg/dL (0.2-1.3); BLOOD UREA NITROGEN 12 mg/dL (7-20); CALCIUM 9.9 mg/dL (8.4-10.2); CARBON DIOXIDE 33 mmol/L (22-30); CHLORIDE 102 mmol/L (98-107); GLUCOSE 96 mg/dL (75-110); POTASSIUM 3.7 mmol/L (3.6-5.0); TOTAL PROTEIN 7.4 g/dL (6.3-8.2)
[2018-02-03 14:08] LABS: WHITE BLOOD COUNT 33.3 10^3/uL (4.0-10.5)
[2018-02-03] MEDS ORDERED: GRANISETRON HCL 1 MG PO PRN (20:06)
[2018-02-03] MEDS ORDERED: TRAMADOL HCL 50 MG TABLET PO PRN (20:06)
[2018-02-03] MEDS ORDERED: (PENDING PHARMACY ID) (Olmesartan/Hydrochlorothiazide [Olmesartan-Hctz 40-25 Mg Tab] 1 EAC PO SCH (20:15)
[2018-02-03] MEDS ORDERED: (PENDING PHARMACY ID) (Loratadine [Claritin] 10 MG) PO SCH (20:15)
[2018-02-03 20:28] LABS: LIPASE 95.7 U/L (23-300); PHOSPHORUS 2.8 mg/dL (2.5-4.5)
[2018-02-03 20:45] LABS: FREE T4 (FREE THYROXINE) 0.8 ng/dL (0.78-2.19)
--- NOTE | 2018-02-03 20:47 | ER Document Report ---
ED Medical Screen (RME) - General Chief Complaint: Nose Bleed Stated Complaint: NOSE BLEED Time Seen by Provider: 02/03/18 11:04 Mode of Arrival: Ambulatory TRAVEL OUTSIDE OF THE [place] IN LAST 30 DAYS: No - Related Data Allergies/Adverse Reactions: No Known Allergies Allergy (Verified 02/03/18 10:34) Past Medical History - Past Medical History Cardiac Medical History: Reports: Hx Hypercholesterolemia, Hx Hypertension Neurological Medical History: Denies: Hx Seizures Endocrine Medical History: Reports: Hx Diabetes Mellitus Type 2 Renal/ Medical History: Denies: Hx Peritoneal Dialysis Malignancy Medical History: Reports: Hx Colorectal Cancer - with liver metastases and currently on chemotherapy. GI Medical History: Reports: Hx Gastroesophageal Reflux Disease, Hx Colonoscopy Musculoskeltal Medical History: Reports Hx Musculoskeletal Deformity, Reports Hx Musculoskeletal Trauma Psychiatric Medical History: Reports: Hx Depression Past Surgical History: Reports: Hx Hysterectomy, Hx Vascular Surgery - Port for chemo, Other - Biopsies of colon - Immunizations Immunizations up to date: Yes Hx Diphtheria, Pertussis, Tetanus Vaccination: Yes History of Influenza Vaccine for 11/2016 - 04/2017 Season: No Physical Exam - Vital signs Vitals: Temp Pulse Resp BP Pulse Ox 98.7 F 89 24 H 124/68 96 02/03/18 10:38 02/03/18 10:38 02/03/18 10:38 02/03/18 10:38 02/03/18 10:38 Course - Re-evaluation Re-evalutation: 02/03/18 20:46 72-year-old female who presents for evaluation of epistaxis. Has had 2 episodes of epistaxis in the past once requiring evaluation. Attempted to initially evacuate a large clot from the patient's left nare. Large clot was evacuated and pressure was applied for approximately 10 minutes. After this time it was noteworthy that this patient then had a bloody bowel movement. Because she continued to have epistaxis and a bloody bowel movement will obtain labs including coags and a count. We will plan for patient undergo treatment with Afrin nasal spray. I have seen and evaluated this patient in rapid screening examination. I have initiated a workup. I plan for this patient undergo further evaluation and disposition determination by secondary provider. - Vital Signs Vital signs: Temp Pulse Resp BP Pulse Ox 98.6 F 81 22 H 109/56 L 96 02/03/18 19:37 02/03/18 19:37 02/03/18 19:37 02/03/18 19:37 02/03/18 19:37 - Laboratory Result Diagrams: 02/03/18 13:30 02/03/18 13:30 Laboratory results interpreted by me: 02/03/18 02/03/18 02/03/18 13:30 13:30 13:30 WBC 33.3 H* RBC 3.00 L Hgb 9.1 L Hct 29.1 L MCHC 31.4 L RDW 20.3 H Plt Count 124 L Seg Neuts % (Manual) 81 H Band Neutrophils % 1 L Lymphocytes % (Manual) 11 L Abs Neuts (Manual) 27.3 H Abs Monocytes (Manual) 2.3 H APTT 41.2 H Carbon Dioxide 33 H Magnesium Alkaline Phosphatase 219 H Albumin 3.4 L 02/03/18 13:30 WBC RBC Hgb Hct MCHC RDW Plt Count Seg Neuts % (Manual) Band Neutrophils % Lymphocytes % (Manual) Abs Neuts (Manual) Abs Monocytes (Manual) APTT Carbon Dioxide Magnesium 1.5 L Alkaline Phosphatase Albumin Doctor's Discharge - Discharge Clinical Impression: Anterior epistaxis, Lower GI bleeding Condition: Stable Disposition: ADMITTED INPATIENT
[2018-02-03 20:54] LABS: INTERNATIONAL RATION (INR) 1.06; PROTHROMBIN TIME 14.3 SEC (11.4-15.4)
[2018-02-03 20:55] LABS: PARTIAL THROMBOPLASTIN TIME 42.2 SEC (23.5-35.8)
[2018-02-03 21:00] LABS: THYROID STIMULATING HORMONE 1.65 uIU/mL (0.47-4.68)
[2018-02-03] MEDS: EZETIMIBE 10 MG TABLET PO SCH (22:30)
[2018-02-03] MEDS: LOSARTAN POTASSIUM 50 MG TABLET PO SCH (22:30)
[2018-02-03] MEDS: LANSOPRAZOLE 15 MG TAB.RAP.DR PO SCH (22:31)
[2018-02-03] MEDS: METOPROLOL SUCCINATE 50 MG TAB.SR.24H PO SCH (22:31)
[2018-02-03] MEDS: LORATADINE 10 MG TABLET PO SCH (22:35)
[2018-02-04] MEDS: LANSOPRAZOLE 15 MG TAB.RAP.DR PO SCH (05:46)
[2018-02-04 07:20] LABS: HEMATOCRIT 24.3 % (36.0-47.0); MEAN CORPUSCULAR HGB CONC 31.9 g/dL (32.0-36.0); MEAN CORPUSCULAR VOLUME 97 fl (80-97); RED CELL DISTRIBUTION WIDTH 21.1 % (11.5-14.0)
[2018-02-04 07:36] LABS: ALANINE AMINOTRANSFERASE 14 U/L (9-52); ALBUMIN 2.9 g/dL (3.5-5.0); ALKALINE PHOSPHATASE 190 U/L (38-126); ASPARTATE AMINO TRANSFERASE 28 U/L (14-36); BILIRUBIN,DIRECT 0.2 mg/dL (0.0-0.4); BILIRUBIN,TOTAL 0.6 mg/dL (0.2-1.3); BLOOD UREA NITROGEN 14 mg/dL (7-20); CALCIUM 9.3 mg/dL (8.4-10.2); CHOLESTEROL 92.68 mg/dL (0-200); GLUCOSE 200 mg/dL (75-110); POTASSIUM 4.3 mmol/L (3.6-5.0); TOTAL PROTEIN 6.7 g/dL (6.3-8.2); TRIGLYCERIDES 126 mg/dL (<150)
[2018-02-04 07:41] LABS: CARBON DIOXIDE 33 mmol/L (22-30); CHLORIDE 103 mmol/L (98-107); SODIUM 141.1 mmol/L (137-145)
[2018-02-04 07:47] LABS: DIRECT LDL 63 mg/dL (<100)
[2018-02-04 07:48] LABS: ANION GAP 5 (5-19)
[2018-02-04 07:53] LABS: PLATELET COUNT 105 10^3/uL (150-450)
[2018-02-04 08:06] LABS: ABSOLUTE LYMPHOCYTES# (MANUAL) 5.1 10^3/uL (0.5-4.7); ABSOLUTE MONOCYTES # (MANUAL) 2.2 10^3/uL (0.1-1.4); ABSOLUTE NEUTROPHILS# (MANUAL) 24.5 10^3/uL (1.7-8.2); BASOPHILS % (MANUAL) 0 % (0-2); EOSINOPHILS % (MANUAL) 0 % (0-6); LYMPHOCYTES % (MANUAL) 16 % (13-45); MONOCYTES % (MANUAL) 7 % (3-13); SEGMENTED NEUTROPHILS % (MAN) 77 % (42-78); TOTAL CELLS COUNTED 100; TOXIC GRANULATION 1+
[2018-02-04 08:07] LABS: ANISOCYTOSIS 3+; OVALOCYTES 1+; PLATELET COMMENT DECREASED; STOMATOCYTES SLIGHT
[2018-02-04 08:17] LABS: WHITE BLOOD COUNT 31.8 10^3/uL (4.0-10.5)
[2018-02-04 08:18] LABS: HEMOGLOBIN 7.7 g/dL (12.0-15.5)
[2018-02-04] MEDS: LOSARTAN POTASSIUM 50 MG TABLET PO SCH (09:29)
[2018-02-04] MEDS: METOPROLOL SUCCINATE 50 MG TAB.SR.24H PO SCH (09:29)
[2018-02-04] MEDS: LORATADINE 10 MG TABLET PO SCH (09:30)
[2018-02-04] MEDS ORDERED: LANSOPRAZOLE 15 MG TAB.RAP.DR PO ONE (10:00)
[2018-02-04 11:40] LABS: APPEARANCE,URINE SLIGHTLY-CLOUDY; BILIRUBIN,URINE NEGATIVE (NEGATIVE); COLOR,URINE YELLOW; GLUCOSE, URINE NEGATIVE (NEGATIVE); KETONES,URINE NEGATIVE (NEGATIVE); LEUKOCYTE ESTERASE,URINE TRACE (NEGATIVE); NITRITE,URINE NEGATIVE (NEGATIVE); PROTEIN,URINE NEGATIVE (NEGATIVE); URINE SPECIFIC GRAVITY 1.016
[2018-02-04 11:55] LABS: URINE AMPHETAMINES SCREEN NEGATIVE; URINE BARBITURATES SCREEN NEGATIVE; URINE BENZODIAZEPINES SCREEN NEGATIVE; URINE COCAINE SCREEN NEGATIVE; URINE MARIJUANA (THC) SCREEN NEGATIVE; URINE METHADONE SCREEN NEGATIVE; URINE PHENCYCLIDINE SCREEN NEGATIVE
--- NOTE | 2018-02-04 12:27 | PDOC H&P ---
History of Present Illness Admission Date/PCP: 02/03/18 17:18 DAVID NORTON History of Present Illness: TRELL ISLAS is a 72 year old female, she has history of type 2 diabetes mellitus, stage IV colon cancer on chemotherapy, she came to the emergency room for evaluation of nosebleed, this was her second ED visit for evaluation of nosebleed, she also had episode of rectal bleed when she was evaluated for a nosebleed, the PTT was drawn it was prolonged, the hemogram revealed leukocy tosis, most likely due to Neupogen that she gets for the chemotherapy. She has no abdominal pain, no vomiting, because of the rectal bleed and the epistasis it was felt that patient needed to be admitted for evaluation Past Medical History Cardiac Medical History: Reports: Hyperlipidema, Hypertension Neurological Medical History: Denies: Seizures Endocrine Medical History: Reports: Diabetes Mellitus Type 2 Malignancy Medical History: Reports: Colorectal Cancer - with liver metastases and currently on chemotherapy. GI Medical History: Reports: Gastroesophageal Reflux Disease Psychiatric Medical History: Reports: Depression Past Surgical History Past Surgical History: Reports: Hysterectomy, Vascular Surgery - Port for chemo, Other - Biopsies of colon Social History Smoking Status: Unknown if Ever Smoked Frequency of Alcohol Use: None Hx Recreational Drug Use: No Drugs: None Hx Prescription Drug Abuse: No - Advance Directive Resuscitation Status: Full Code Family History Family History: Reviewed & Not Pertinent Parental Family History Reviewed: Yes Children Family History Reviewed: Yes Sibling(s) Family History Reviewed.: Yes Medication/Allergy Home Medications: Granisetron HCl [Kytril] 1 mg PO Q12HP PRN 11/05/17 Hum Insulin NPH/Reg Insulin Hm [Novolin 70-30 100 Unit/ml Vial] 50 units SQ QPM 11/05/17 Hum Insulin NPH/Reg Insulin Hm [Novolin 70-30 100 Unit/ml Vial] 90 units SQ QAM 11/05/17 Metoprolol Succinate [Toprol Xl 50 mg Tab.sr] 50 mg PO DAILY 11/05/17 Omeprazole 20 mg PO DAILY 11/05/17 Pegfilgrastim [Neulasta Inj 6 mg/0.6 ml Disp.syrin] 6 mg SQ .ASDIR 11/05/17 Polyethylene Glycol 3350 [Miralax Powder 17 gm/Packet] 17 gm PO DAILY 11/05/17 Tramadol HCl [Ultram 50 mg Tablet] 50 mg PO Q6HP PRN 11/05/17 Cephalexin Monohydrate [Keflex 500 mg Capsule] 500 mg PO BID #14 capsule 12/25/17 Ezetimibe [Zetia 10 mg Tablet] 10 mg PO QHS 02/03/18 Loratadine [Claritin] 10 mg PO DAILY 02/03/18 Olmesartan/Hydrochlorothiazide [Olmesartan-Hctz 40-25 mg Tab] 1 each PO DAILY 02/03/18 Prochlorperazine Maleate [Compazine 10 mg Tablet] 10 mg PO Q6HP PRN 02/03/18 Allergies/Adverse Reactions: No Known Allergies Allergy (Verified 02/03/18 10:34) Review of Systems Constitutional: ABSENT: chills, fever(s), headache(s), weight gain, weight loss Eyes: ABSENT: visual disturbances Ears: ABSENT: hearing changes Nose, Mouth, and Throat: PRESENT: other - Epistasis Cardiovascular: ABSENT: chest pain, dyspnea on exertion, edema, orthropnea, palpitations Respiratory: ABSENT: cough, hemoptysis Gastrointestinal: PRESENT: hematochezia. ABSENT: abdominal pain, constipation, diarrhea, hematemesis, nausea, vomiting Genitourinary: ABSENT: dysuria, hematuria Musculoskeletal: ABSENT: joint swelling Integumentary: ABSENT: rash, wounds Neurological: ABSENT: abnormal gait, abnormal speech, confusion, dizziness, foc al weakness, syncope Psychiatric: ABSENT: anxiety, depression, homidical ideation, suicidal ideation Endocrine: ABSENT: cold intolerance, heat intolerance, menstrual abnormalities, polydipsia, polyuria Hematologic/Lymphatic: ABSENT: easy bleeding, easy bruising, lymphadenopathy Physical Exam Vital Signs: Temp Pulse Resp BP Pulse Ox 98.3 F 79 16 137/75 H 100 02/04/18 07:58 02/04/18 07:58 02/04/18 07:58 02/04/18 07:58 02/04/18 07:58 Intake & Output 02/03/18 02/04/18 02/05/18 06:59 06:59 06:59 Intake Total 350 Output Total 0 Balance 350 Weight 85.3 kg General appearance: PRESENT: no acute distress, well-developed, well-nourished Head exam: PRESENT: atraumatic, normocephalic Eye exam: PRESENT: conjunctiva pink, EOMI, PERRLA Ear exam: PRESENT: normal external ear exam Mouth exam: PRESENT: moist, tongue midline Neck exam: PRESENT: full ROM Respiratory exam: PRESENT: clear to auscultation [place] Cardiovascular exam: PRESENT: RRR, +S1, +S2 Pulses: PRESENT: normal dorsalis pedis pul, +2 pedal pulses bilateral Vascular exam: PRESENT: normal capillary refill GI/Abdominal exam: PRESENT: normal bowel sounds, soft Rectal exam: PRESENT: deferred Neurological exam: PRESENT: alert, awake, oriented to person, oriented to place, oriented to time, oriented to situation, CN II-XII grossly intact Psychiatric exam: PRESENT: appropriate affect, normal mood Skin exam: PRESENT: dry, intact, warm Results Laboratory Results: 02/04/18 06:59 02/04/18 06:59 02/03/18 02/03/18 02/03/18 13:30 13:30 13:30 WBC 33.3 H* RBC 3.00 L Hgb 9.1 L Hct 29.1 L MCV 97 MCH 30.4 MCHC 31.4 L RDW 20.3 H Plt Count 124 L Seg Neutrophils % Not Reportable Lymphocytes % Not Reportable Monocytes % Not Reportable Eosinophils % Not Reportable Basophils % Not Reportable Absolute Neutrophils Not Reportable Absolute Lymphocytes Not Reportable Absolute Monocytes Not Reportable Absolute Eosinophils Not Reportable Absolute Basophils Not Reportable Sodium 141.0 Potassium 3.7 Chloride 102 Carbon Dioxide 33 H Anion Gap 6 BUN 12 Creatinine 0.87 Est GFR ( Amer) > 60 Est GFR (Non-Af Amer) > 60 Glucose 96 Calcium 9.9 Phosphorus 2.8 Magnesium 1.5 L Total Bilirubin 0.7 AST 33 ALT 19 Alkaline Phosphatase 219 H Ammonia Total Protein 7.4 Albumin 3.4 L Triglycerides Cholesterol LDL Cholesterol Direct VLDL Cholesterol HDL Cholesterol Amylase 71 Lipase 95.7 TSH Free T4 Urine Color Urine Appearance Urine pH Ur Specific [place] Urine Protein Urine Glucose (UA) Urine Ketones Urine Blood Urine Nitrite Ur Leukocyte Esterase Urine WBC (Auto) Urine RBC (Auto) 02/03/18 02/03/18 02/04/18 13:30 20:20 06:59 WBC 31.8 H* RBC 2.50 L Hgb 7.7 L Hct 24.3 L MCV 97 MCH 31.0 MCHC 31.9 L RDW 21.1 H Plt Count 105 L Seg Neutrophils % Not Reportable Lymphocytes % Not Reportable Monocytes % Not Reportable Eosinophils % Not Reportable Basophils % Not Reportable Absolute Neutrophils Not Reportable Absolute Lymphocytes Not Reportable Absolute Monocytes Not Reportable Absolute Eosinophils Not Reportable Absolute Basophils Not Reportable Sodium Potassium Chloride Carbon Dioxide Anion Gap BUN Creatinine Est GFR ( Amer) Est GFR (Non-Af Amer) Glucose Calcium Phosphorus Magnesium Total Bilirubin AST ALT Alkaline Phosphatase Ammonia < 8.7 L Total Protein Albumin Triglycerides Cholesterol LDL Cholesterol Direct VLDL Cholesterol HDL Cholesterol Amylase Lipase TSH 1.65 Free T4 0.80 Urine Color Urine Appearance Urine pH Ur Specific [place] Urine Protein Urine Glucose (UA) Urine Ketones Urine Blood Urine Nitrite Ur Leukocyte Esterase Urine WBC (Auto) Urine RBC (Auto) 02/04/18 02/04/18 06:59 11:11 WBC RBC Hgb Hct MCV MCH MCHC RDW Plt Count Seg Neutrophils % Lymphocytes % Monocytes % Eosinophils % Basophils % Absolute Neutrophils Absolute Lymphocytes Absolute Monocytes Absolute Eosinophils Absolute Basophils Sodium 141.1 Potassium 4.3 Chloride 103 Carbon Dioxide 33 H Anion Gap 5 BUN 14 Creatinine 0.89 Est GFR ( Amer) > 60 Est GFR (Non-Af Amer) > 60 Glucose 200 H Calcium 9.3 Phosphorus Magnesium Total Bilirubin 0.6 AST 28 ALT 14 Alkaline Phosphatase 190 H Ammonia Total Protein 6.7 Albumin 2.9 L Triglycerides 126 Cholesterol 92.68 LDL Cholesterol Direct 63 VLDL Cholesterol 25.0 HDL Cholesterol 20 L Amylase Lipase TSH Free T4 Urine Color YELLOW Urine Appearance SLIGHTLY-CLOUDY Urine pH 6.0 Ur Specific [place] 1.016 Urine Protein NEGATIVE Urine Glucose (UA) NEGATIVE Urine Ketones NEGATIVE Urine Blood MODERATE H Urine Nitrite NEGATIVE Ur Leukocyte Esterase TRACE H Urine WBC (Auto) 6 Urine RBC (Auto) 5 02/03/18 02/03/18 02/04/18 13:30 13:30 01:07 Creatine Kinase 76 62 Troponin I < 0.012 02/04/18 02/04/18 02/04/18 01:07 06:59 06:59 Creatine Kinase 53 Troponin I < 0.012 < 0.012 Assessment & Plan - Diagnosis (1) Lower gastrointestinal bleed Is this a current diagnosis for this admission?: Yes Plan: She has large GI bleed with associated epistasis, the PTT is prolonged, she probably need FFP (2) Colon cancer Qualifiers: Colon location: unspecified part of colon Qualified Code(s): C18.9 - Malignant neoplasm of colon, unspecified Is this a current diagnosis for this admission?: Yes (3) Epistaxis not due to trauma Is this a current diagnosis for this admission?: Yes (4) Type 2 diabetes mellitus Qualifiers: 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
[2018-02-04] MEDS ORDERED: DEXTROSE 40% GEL 15 GM TUBE PO PRN (12:30)
[2018-02-04] MEDS ORDERED: DEXTROSE 40% GEL 15 GM TUBE X 2 PO PRN (12:30)
[2018-02-04] MEDS ORDERED: DEXTROSE 50%-WATER SYRINGE 12.5 GM/25 ML DOSE IV PRN (12:30)
[2018-02-04 13:17] LABS: HEMATOCRIT 25.3 % (36.0-47.0); MEAN CORPUSCULAR HEMOGLOBIN 30.4 pg (27.0-33.4); MEAN CORPUSCULAR HGB CONC 31.1 g/dL (32.0-36.0); MEAN CORPUSCULAR VOLUME 98 fl (80-97); PLATELET COUNT 109 10^3/uL (150-450); RED BLOOD COUNT 2.58 10^6/uL (3.72-5.28); RED CELL DISTRIBUTION WIDTH 21.2 % (11.5-14.0)
[2018-02-04 13:21] LABS: HEMOGLOBIN 7.9 g/dL (12.0-15.5)
[2018-02-04 13:22] LABS: WHITE BLOOD COUNT 37.7 10^3/uL (4.0-10.5)
[2018-02-04 13:34] LABS: ABSOLUTE LYMPHOCYTES# (MANUAL) 3.8 10^3/uL (0.5-4.7); ABSOLUTE MONOCYTES # (MANUAL) 3.4 10^3/uL (0.1-1.4); ABSOLUTE NEUTROPHILS# (MANUAL) 29.4 10^3/uL (1.7-8.2); ANISOCYTOSIS 2+; BAND NEUTROPHILS % (MANUAL) 6 % (3-5); BASOPHILS % (MANUAL) 0 % (0-2); EOSINOPHILS % (MANUAL) 3 % (0-6); LYMPHOCYTES % (MANUAL) 10 % (13-45); MONOCYTES % (MANUAL) 9 % (3-13); POLYCHROMASIA SLIGHT; SEGMENTED NEUTROPHILS % (MAN) 72 % (42-78); TOTAL CELLS COUNTED 100
[2018-02-04 13:35] LABS: PLATELET COMMENT ADEQUATE; STOMATOCYTES SLIGHT; TOXIC GRANULATION 1+; TOXIC VACUOLATION PRESENT
[2018-02-04] MEDS: INSULIN LISPRO 100 UNIT/ML 3 ML VIAL SUBCUT PRN (13:49)
[2018-02-04] MEDS ORDERED: NORMAL SALINE 250 ML IV PRN ×2 (14:35)
--- NOTE | 2018-02-04 14:38 | PDOC PROGRESS REPORT ---
Subjective Progress Note for:: 02/04/18 Subjective:: She was seen by the bedside she is still bleeding, Reason For Visit: HEMATOCHEZOA, METASTATIC COLON CANCER Physical Exam Vital Signs: Temp Pulse Resp BP Pulse Ox 98.1 F 80 17 130/73 H 99 02/04/18 12:16 02/04/18 12:16 02/04/18 12:16 02/04/18 12:16 02/04/18 12:16 Intake & Output 02/03/18 02/04/18 02/05/18 06:59 06:59 06:59 Intake Total 350 Output Total 0 Balance 350 Weight 85.3 kg General appearance: PRESENT: no acute distress Head exam: PRESENT: atraumatic, normocephalic Eye exam: PRESENT: conjunctiva pale Neck exam: PRESENT: full ROM Respiratory exam: PRESENT: clear to auscultation [place] Cardiovascular exam: PRESENT: RRR, +S1, +S2 Vascular exam: PRESENT: normal capillary refill GI/Abdominal exam: PRESENT: normal bowel sounds, soft Rectal exam: PRESENT: deferred Neurological exam: PRESENT: alert, awake, oriented to person, oriented to place, oriented to time, oriented to situation, CN II-XII grossly intact Psychiatric exam: PRESENT: appropriate affect, normal mood Skin exam: PRESENT: dry, intact, warm Results Laboratory Results: 02/04/18 12:43 02/04/18 06:59 02/03/18 02/03/18 02/03/18 13:30 13:30 20:20 WBC RBC Hgb Hct MCV MCH MCHC RDW Plt Count Seg Neutrophils % Lymphocytes % Monocytes % Eosinophils % Basophils % Absolute Neutrophils Absolute Lymphocytes Absolute Monocytes Absolute Eosinophils Absolute Basophils Sodium Potassium Chloride Carbon Dioxide Anion Gap BUN Creatinine Est GFR ( Amer) Est GFR (Non-Af Amer) Glucose Calcium Phosphorus 2.8 Magnesium 1.5 L Total Bilirubin AST ALT Alkaline Phosphatase Ammonia < 8.7 L Total Protein Albumin Triglycerides Cholesterol LDL Cholesterol Direct VLDL Cholesterol HDL Cholesterol Amylase 71 Lipase 95.7 TSH 1.65 Free T4 0.80 Urine Color Urine Appearance Urine pH Ur Specific [place] Urine Protein Urine Glucose (UA) Urine Ketones Urine Blood Urine Nitrite Ur Leukocyte Esterase Urine WBC (Auto) Urine RBC (Auto) 02/04/18 02/04/18 02/04/18 06:59 06:59 11:11 WBC 31.8 H* RBC 2.50 L Hgb 7.7 L Hct 24.3 L MCV 97 MCH 31.0 MCHC 31.9 L RDW 21.1 H Plt Count 105 L Seg Neutrophils % Not Reportable Lymphocytes % Not Reportable Monocytes % Not Reportable Eosinophils % Not Reportable Basophils % Not Reportable Absolute Neutrophils Not Reportable Absolute Lymphocytes Not Reportable Absolute Monocytes Not Reportable Absolute Eosinophils Not Reportable Absolute Basophils Not Reportable Sodium 141.1 Potassium 4.3 Chloride 103 Carbon Dioxide 33 H Anion Gap 5 BUN 14 Creatinine 0.89 Est GFR ( Amer) > 60 Est GFR (Non-Af Amer) > 60 Glucose 200 H Calcium 9.3 Phosphorus Magnesium Total Bilirubin 0.6 AST 28 ALT 14 Alkaline Phosphatase 190 H Ammonia Total Protein 6.7 Albumin 2.9 L Triglycerides 126 Cholesterol 92.68 LDL Cholesterol Direct 63 VLDL Cholesterol 25.0 HDL Cholesterol 20 L Amylase Lipase TSH Free T4 Urine Color YELLOW Urine Appearance SLIGHTLY-CLOUDY Urine pH 6.0 Ur Specific [place] 1.016 Urine Protein NEGATIVE Urine Glucose (UA) NEGATIVE Urine Ketones NEGATIVE Urine Blood MODERATE H Urine Nitrite NEGATIVE Ur Leukocyte Esterase TRACE H Urine WBC (Auto) 6 Urine RBC (Auto) 5 02/04/18 12:43 WBC 37.7 H* RBC 2.58 L Hgb 7.9 L Hct 25.3 L MCV 98 H MCH 30.4 MCHC 31.1 L RDW 21.2 H Plt Count 109 L Seg Neutrophils % Not Reportable Lymphocytes % Not Reportable Monocytes % Not Reportable Eosinophils % Not Reportable Basophils % Not Reportable Absolute Neutrophils Not Reportable Absolute Lymphocytes Not Reportable Absolute Monocytes Not Reportable Absolute Eosinophils Not Reportable Absolute Basophils Not Reportable Sodium Potassium Chloride Carbon Dioxide Anion Gap BUN Creatinine Est GFR ( Amer) Est GFR (Non-Af Amer) Glucose Calcium Phosphorus Magnesium Total Bilirubin AST ALT Alkaline Phosphatase Ammonia Total Protein Albumin Triglycerides Cholesterol LDL Cholesterol Direct VLDL Cholesterol HDL Cholesterol Amylase Lipase TSH Free T4 Urine Color Urine Appearance Urine pH Ur Specific [place] Urine Protein Urine Glucose (UA) Urine Ketones Urine Blood Urine Nitrite Ur Leukocyte Esterase Urine WBC (Auto) Urine RBC (Auto) 02/03/18 02/03/18 02/04/18 13:30 13:30 01:07 Creatine Kinase 76 62 Troponin I < 0.012 02/04/18 02/04/18 02/04/18 01:07 06:59 06:59 Creatine Kinase 53 Troponin I < 0.012 < 0.012 Assessment & Plan - Diagnosis (1) Lower gastrointestinal bleed Is this a current diagnosis for this admission?: Yes Plan: Consult surgery for colonoscopy (2) Colon cancer Qualifiers: Colon location: unspecified part of colon Qualified Code(s): C18.9 - Malignant neoplasm of colon, unspecified Is this a current diagnosis for this admission?: Yes (3) Epistaxis not due to trauma Is this a current diagnosis for this admission?: Yes (4) Type 2 diabetes mellitus Qualifiers: 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 Diabetes mellitus complication status: with neurologic complications Diabetes mellitus complication detail: with polyneuropathy Qualified Code(s): E11.42 - Type 2 diabetes mellitus with diabetic polyneuropathy; Z79.4 - residential (current) use of insulin Is this a current diagnosis for this admission?: Yes (5) Anemia Qualifiers: Anemia type: other cause Other causes of anemia: acute posthemorrhagic Qualified Code(s): D62 - Acute posthemorrhagic anemia Is this a current diagnosis for this admission?: Yes Plan: Transfused with red blood cells (6) Leukemoid reaction Is this a current diagnosis for this admission?: Yes Plan: This is due to Neupogen
--- NOTE | 2018-02-04 16:55 | PDOC CONSULTATION ---
Consultation Consult Date: 02/04/18 - lower gi bleeding with hx of metastatic colon cancer Consult reason:: R/o lower gi bleeding History of Present Illness Admission Date/PCP: 02/03/18 17:18 DAVID [facility] History of Present Illness: TRELL ISLAS is a 72 year old female with a known history of colon cancer presented in late 2016 with lower abdominal pain a CT scan was consistent with a colonic mass is she underwent colonoscopy which showed an ascending colon cancer she is now on chemotherapy. Over the last few weeks she is presented a number of times to the emergency room with moderate to severe epistaxis treated by nasal packing. She presented again two nights ago with a nosebleed and was admitted for obser vation she also reported some blood per rectum. She stated that she did swallow a large amount of blood when she had the nasal bleeding. because of A history of colon cancer and the rectal bleeding it was felt by her primary physician that she should be seen by surgery for possible colonoscopy and control bleeding if present. currently she has no complaints of nasal bleeding or rectal bleeding. Her last bowel movement was earlier today she noticed the stool to be dark in color and a few spots of blood she had a recent hemoglobins that have dropped from her admission 36 hours ago however remained stable for the last 24- hours Past Medical History Cardiac Medical History: Reports: Hyperlipidema, Hypertension Neurological Medical History: Denies: Seizures Endocrine Medical History: Reports: Diabetes Mellitus Type 2 Malignancy Medical History: Reports: Colorectal Cancer - with liver metastases and currently on chemotherapy. GI Medical History: Reports: Gastroesophageal Reflux Disease Psychiatric Medical History: Reports: Depression Past Surgical History Past Surgical History: Reports: Hysterectomy, Vascular Surgery - Port for chemo, Other - Biopsies of colon Social History Smoking Status: Unknown if Ever Smoked Frequency of Alcohol Use: None Hx Recreational Drug Use: No Drugs: None Hx Prescription Drug Abuse: No - Advance Directive Resuscitation Status: Full Code Family History Family History: Reviewed & Not Pertinent Parental Family History Reviewed: No Children Family History Reviewed: Unknown Sibling(s) Family History Reviewed.: Unknown Medication/Allergy Home Medications: Granisetron HCl [Kytril] 1 mg PO Q12HP PRN 11/05/17 Hum Insulin NPH/Reg Insulin Hm [Novolin 70-30 100 Unit/ml Vial] 50 units SQ QPM 11/05/17 Hum Insulin NPH/Reg Insulin Hm [Novolin 70-30 100 Unit/ml Vial] 90 units SQ QAM 11/05/17 Metoprolol Succinate [Toprol Xl 50 mg Tab.sr] 50 mg PO DAILY 11/05/17 Omeprazole 20 mg PO DAILY 11/05/17 Pegfilgrastim [Neulasta Inj 6 mg/0.6 ml Disp.syrin] 6 mg SQ .ASDIR 11/05/17 Polyethylene Glycol 3350 [Miralax Powder 17 gm/Packet] 17 gm PO DAILY 11/05/17 Tramadol HCl [Ultram 50 mg Tablet] 50 mg PO Q6HP PRN 11/05/17 Cephalexin Monohydrate [Keflex 500 mg Capsule] 500 mg PO BID #14 capsule 12/25/17 Ezetimibe [Zetia 10 mg Tablet] 10 mg PO QHS 02/03/18 Loratadine [Claritin] 10 mg PO DAILY 02/03/18 Olmesartan/Hydrochlorothiazide [Olmesartan-Hctz 40-25 mg Tab] 1 each PO DAILY 02/03/18 Prochlorperazine Maleate [Compazine 10 mg Tablet] 10 mg PO Q6HP PRN 02/03/18 Allergies/Adverse Reactions: No Known Allergies Allergy (Verified 02/03/18 10:34) Physical Exam Vital Signs: Temp Pulse Resp BP Pulse Ox 97.7 F 73 18 121/64 100 02/04/18 15:10 02/04/18 15:10 02/04/18 15:10 02/04/18 15:10 02/04/18 15:10 Intake & Output 02/03/18 02/04/18 02/05/18 06:59 06:59 06:59 Intake Total 350 360 Output Total 0 300 Balance 350 60 Weight 85.3 kg General appearance: PRESENT: no acute distress, cooperative Eye exam: PRESENT: PERRLA Mouth exam: PRESENT: dry mucosa Respiratory exam: PRESENT: clear to auscultation [place], symmetrical Cardiovascular exam: PRESENT: RRR GI/Abdominal exam: PRESENT: soft Rectal exam: PRESENT: normal rectal tone, other - no evidence of bleeding Extremities exam: PRESENT: full ROM Musculoskeletal exam: PRESENT: ambulatory Neurological exam: PRESENT: alert, awake, oriented to person, oriented to place, oriented to time, oriented to situation Skin exam: PRESENT: dry, warm Results Laboratory Results: 02/04/18 12:43 02/04/18 06:59 02/03/18 02/03/18 02/03/18 13:30 13:30 20:20 WBC RBC Hgb Hct MCV MCH MCHC RDW Plt Count Seg Neutrophils % Lymphocytes % Monocytes % Eosinophils % Basophils % Absolute Neutrophils Absolute Lymphocytes Absolute Monocytes Absolute Eosinophils Absolute Basophils Sodium Potassium Chloride Carbon Dioxide Anion Gap BUN Creatinine Est GFR ( Amer) Est GFR (Non-Af Amer) Glucose Calcium Phosphorus 2.8 Magnesium 1.5 L Total Bilirubin AST ALT Alkaline Phosphatase Ammonia < 8.7 L Total Protein Albumin Triglycerides Cholesterol LDL Cholesterol Direct VLDL Cholesterol HDL Cholesterol Amylase 71 Lipase 95.7 TSH 1.65 Free T4 0.80 Urine Color Urine Appearance Urine pH Ur Specific [place] Urine Protein Urine Glucose (UA) Urine Ketones Urine Blood Urine Nitrite Ur Leukocyte Esterase Urine WBC (Auto) Urine RBC (Auto) Blood Type Antibody Screen 02/04/18 02/04/18 02/04/18 06:59 06:59 11:11 WBC 31.8 H* RBC 2.50 L Hgb 7.7 L Hct 24.3 L MCV 97 MCH 31.0 MCHC 31.9 L RDW 21.1 H Plt Count 105 L Seg Neutrophils % Not Reportable Lymphocytes % Not Reportable Monocytes % Not Reportable Eosinophils % Not Reportable Basophils % Not Reportable Absolute Neutrophils Not Reportable Absolute Lymphocytes Not Reportable Absolute Monocytes Not Reportable Absolute Eosinophils Not Reportable Absolute Basophils Not Reportable Sodium 141.1 Potassium 4.3 Chloride 103 Carbon Dioxide 33 H Anion Gap 5 BUN 14 Creatinine 0.89 Est GFR ( Amer) > 60 Est GFR (Non-Af Amer) > 60 Glucose 200 H Calcium 9.3 Phosphorus Magnesium Total Bilirubin 0.6 AST 28 ALT 14 Alkaline Phosphatase 190 H Ammonia Total Protein 6.7 Albumin 2.9 L Triglycerides 126 Cholesterol 92.68 LDL Cholesterol Direct 63 VLDL Cholesterol 25.0 HDL Cholesterol 20 L Amylase Lipase TSH Free T4 Urine Color YELLOW Urine Appearance SLIGHTLY-CLOUDY Urine pH 6.0 Ur Specific [place] 1.016 Urine Protein NEGATIVE Urine Glucose (UA) NEGATIVE Urine Ketones NEGATIVE Urine Blood MODERATE H Urine Nitrite NEGATIVE Ur Leukocyte Esterase TRACE H Urine WBC (Auto) 6 Urine RBC (Auto) 5 Blood Type Antibody Screen 02/04/18 02/04/18 12:43 12:43 WBC 37.7 H* RBC 2.58 L Hgb 7.9 L Hct 25.3 L MCV 98 H MCH 30.4 MCHC 31.1 L RDW 21.2 H Plt Count 109 L Seg Neutrophils % Not Reportable Lymphocytes % Not Reportable Monocytes % Not Reportable Eosinophils % Not Reportable Basophils % Not Reportable Absolute Neutrophils Not Reportable Absolute Lymphocytes Not Reportable Absolute Monocytes Not Reportable Absolute Eosinophils Not Reportable Absolute Basophils Not Reportable Sodium Potassium Chloride Carbon Dioxide Anion Gap BUN Creatinine Est GFR ( Amer) Est GFR (Non-Af Amer) Glucose Calcium Phosphorus Magnesium Total Bilirubin AST ALT Alkaline Phosphatase Ammonia Total Protein Albumin Triglycerides Cholesterol LDL Cholesterol Direct VLDL Cholesterol HDL Cholesterol Amylase Lipase TSH Free T4 Urine Color Urine Appearance Urine pH Ur Specific [place] Urine Protein Urine Glucose (UA) Urine Ketones Urine Blood Urine Nitrite Ur Leukocyte Esterase Urine WBC (Auto) Urine RBC (Auto) Blood Type A POSITIVE Antibody Screen NEGATIVE 02/03/18 02/03/18 02/04/18 13:30 13:30 01:07 Creatine Kinase 76 62 Troponin I < 0.012 02/04/18 02/04/18 02/04/18 01:07 06:59 06:59 Creatine Kinase 53 Troponin I < 0.012 < 0.012 Assessment & Plan - Diagnosis (1) Anemia Qualifiers: Anemia type: other cause Other causes of anemia: acute posthemorrhagic Qualified Code(s): D62 - Acute posthemorrhagic anemia Is this a current diagnosis for this admission?: Yes (2) Colon cancer Qualifiers: Colon location: unspecified part of colon Qualified Code(s): C18.9 - Malignant neoplasm of colon, unspecified Is this a current diagnosis for this admission?: Yes (3) Epistaxis not due to trauma Is this a current diagnosis for this admission?: Yes - Time Time Spent: 50 to 70 Minutes - Plan Summary Plan Summary: Alejandra is a 72-year-old female who presents with epistaxis. Has a recently diagnosed metastatic colon cancer with metastasis to the liver. Currently undergoing palliative chemotherapy because she presented with recurrent epistaxis to the emergency room at the same time stated that she did have some blood per rectum by her primary care physician this morning he recommended a surgical consult for possible rectal bleeding because of the known a sending colon cancer. Current recommendations Recommend the patient that we make her n.p.o. and perform a bowel prep this evening for either colonoscopy later this evening after clearance already any retained stool or colonoscopy in the morning. Patient to that she now did not want to do the bowel prep now because she wants to have dinner with her family for [place] this evening in her hospital room. Her long discussion with the patient, she agreed to a bowel prep after her meal tonight with her family and would agree to a colonoscopy in the morning should she complete the bowel prep. Is also to be transfused 1 unit of packed red blood cells ordered by her primary physician. She will continue to follow for any emergent bleeding tonight none then we could proceed for a more elective colonoscopy tomorrow or
[2018-02-04] MEDS ORDERED: PEG 3350/NA SULF,BICARB,CL/KCL 4000 ML PO ONE (17:00)
[2018-02-04] MEDS: HUM INSULIN NPH/REG INSULIN HM 100 UNIT/1 ML 3 ML SUBCUT SCH (18:05)
[2018-02-04] MEDS ORDERED: PEG 3350/NA SULF,BICARB,CL/KCL 4000 ML ONE (20:14)
[2018-02-04] MEDS: EZETIMIBE 10 MG TABLET PO SCH (21:04)
[2018-02-05 00:05] LABS: HEMOGLOBIN 9.4 g/dL (12.0-15.5); MEAN CORPUSCULAR HEMOGLOBIN 30.1 pg (27.0-33.4); MEAN CORPUSCULAR HGB CONC 31.2 g/dL (32.0-36.0); MEAN CORPUSCULAR VOLUME 96 fl (80-97); PLATELET COUNT 119 10^3/uL (150-450); RED BLOOD COUNT 3.12 10^6/uL (3.72-5.28); RED CELL DISTRIBUTION WIDTH 20.9 % (11.5-14.0)
[2018-02-05 00:08] LABS: WHITE BLOOD COUNT 43.2 10^3/uL (4.0-10.5)
[2018-02-05] MEDS: LANSOPRAZOLE 15 MG TAB.RAP.DR PO SCH (05:23)
[2018-02-05 05:48] LABS: HEMATOCRIT 27.3 % (36.0-47.0); HEMOGLOBIN 8.7 g/dL (12.0-15.5); MEAN CORPUSCULAR HEMOGLOBIN 30.9 pg (27.0-33.4); MEAN CORPUSCULAR VOLUME 97 fl (80-97); PLATELET COUNT 117 10^3/uL (150-450); RED BLOOD COUNT 2.83 10^6/uL (3.72-5.28); RED CELL DISTRIBUTION WIDTH 21.3 % (11.5-14.0)
[2018-02-05 06:24] LABS: WHITE BLOOD COUNT 43.5 10^3/uL (4.0-10.5)
[2018-02-05 06:25] LABS: ABSOLUTE LYMPHOCYTES# (MANUAL) 3.5 10^3/uL (0.5-4.7); ABSOLUTE MONOCYTES # (MANUAL) 4.4 10^3/uL (0.1-1.4); ABSOLUTE NEUTROPHILS# (MANUAL) 35.2 10^3/uL (1.7-8.2); BAND NEUTROPHILS % (MANUAL) 4 % (3-5); BASOPHILS % (MANUAL) 0 % (0-2); EOSINOPHILS % (MANUAL) 1 % (0-6); LYMPHOCYTES % (MANUAL) 8 % (13-45); MONOCYTES % (MANUAL) 10 % (3-13); SEGMENTED NEUTROPHILS % (MAN) 77 % (42-78); TOTAL CELLS COUNTED 100
[2018-02-05 06:27] LABS: ANISOCYTOSIS 2+; POLYCHROMASIA SLIGHT; TOXIC GRANULATION 1+
[2018-02-05 06:28] LABS: OVALOCYTES SLIGHT; PLATELET COMMENT DECREASED; PLATELET LARGE PRESENT; POIKILOCYTOSIS SLIGHT
[2018-02-05] MEDS: HUM INSULIN NPH/REG INSULIN HM 100 UNIT/1 ML 3 ML SUBCUT SCH ×2 (07:34→17:18)
[2018-02-05] MEDS: LOSARTAN POTASSIUM 50 MG TABLET PO SCH (09:55)
[2018-02-05] MEDS: METOPROLOL SUCCINATE 50 MG TAB.SR.24H PO SCH (09:55)
[2018-02-05] MEDS: LORATADINE 10 MG TABLET PO SCH (09:55)
[2018-02-05] MEDS: NORMAL SALINE 1000 ML 1,000 ML IV PRN (14:13)
[2018-02-05 15:38] LABS: MEAN CORPUSCULAR HEMOGLOBIN 30.8 pg (27.0-33.4); MEAN CORPUSCULAR HGB CONC 32.1 g/dL (32.0-36.0); MEAN CORPUSCULAR VOLUME 96 fl (80-97); PLATELET COUNT 106 10^3/uL (150-450); RED CELL DISTRIBUTION WIDTH 20.7 % (11.5-14.0)
[2018-02-05 15:46] LABS: WHITE BLOOD COUNT 34.8 10^3/uL (4.0-10.5)
[2018-02-05] MEDS ORDERED: OXYMETAZOLINE HCL 0.05% NASAL SPRAY 15 ML BOTTLE NASL ONE (16:00)
[2018-02-05] MEDS ORDERED: NORMAL SALINE 250 ML IV PRN ×2 (17:00)
--- NOTE | 2018-02-05 19:09 | PDOC PROGRESS REPORT ---
Subjective Progress Note for:: 02/05/18 Subjective:: This is a 72-year-old female with recent episodes of hematochezia. The patient required 1 unit of packed red blood cells last night. Today, she reports several bowel movements, containing blood. At present the patient denies chest pain, shortness of breath, fevers, chills, orthostasis, malaise, fatigue, blurry vision, headache. Reason For Visit: HEMATOCHEZOA, METASTATIC COLON CANCER Physical Exam Vital Signs: Temp Pulse Resp BP Pulse Ox 98.7 F 84 17 141/65 H 98 02/05/18 11:31 02/05/18 14:00 02/05/18 11:31 02/05/18 11:31 02/05/18 11:31 Intake & Output 02/04/18 02/05/18 02/06/18 06:59 06:59 06:59 Intake Total 350 1260 Output Total 0 900 Balance 350 360 Weight 85.3 kg General appearance: PRESENT: no acute distress Head exam: PRESENT: atraumatic, normocephalic Eye exam: PRESENT: EOMI, PERRLA. ABSENT: scleral icterus Mouth exam: PRESENT: moist, neck supple Neck exam: ABSENT: meningismus, tenderness, thyromegaly, tracheal deviation Respiratory exam: PRESENT: clear to auscultation [place], unlabored. ABSENT: chest wall tenderness, tachypnea, wheezes Pulses: PRESENT: normal radial pulses GI/Abdominal exam: PRESENT: soft. ABSENT: distended, firm, guarding, tenderness Rectal exam: PRESENT: deferred Extremities exam: ABSENT: clubbing Neurological exam: PRESENT: alert, awake, oriented to person, oriented to place, oriented to time, oriented to situation, CN II-XII grossly intact Psychiatric exam: ABSENT: agitated, anxious, depressed Focused psych exam: ABSENT: delusional Skin exam: ABSENT: cyanosis, erythema, jaundice Results Laboratory Results: 02/05/18 15:03 02/04/18 06:59 02/04/18 02/04/18 02/05/18 12:43 23:49 04:58 WBC 43.2 H* 43.5 H* RBC 3.12 L 2.83 L Hgb 9.4 L 8.7 L Hct 30.0 L 27.3 L MCV 96 97 MCH 30.1 30.9 MCHC 31.2 L 32.0 RDW 20.9 H 21.3 H Plt Count 119 L 117 L Seg Neutrophils % Not Reportable Lymphocytes % Not Reportable Monocytes % Not Reportable Eosinophils % Not Reportable Basophils % Not Reportable Absolute Neutrophils Not Reportable Absolute Lymphocytes Not Reportable Absolute Monocytes Not Reportable Absolute Eosinophils Not Reportable Absolute Basophils Not Reportable Blood Type A POSITIVE Antibody Screen NEGATIVE 02/05/18 15:03 WBC 34.8 H* RBC 2.60 L Hgb 8.0 L Hct 25.0 L MCV 96 MCH 30.8 MCHC 32.1 RDW 20.7 H Plt Count 106 L Seg Neutrophils % Lymphocytes % Monocytes % Eosinophils % Basophils % Absolute Neutrophils Absolute Lymphocytes Absolute Monocytes Absolute Eosinophils Absolute Basophils Blood Type Antibody Screen 02/03/18 02/03/18 02/04/18 13:30 13:30 01:07 Creatine Kinase 76 62 Troponin I < 0.012 02/04/18 02/04/18 02/04/18 01:07 06:59 06:59 Creatine Kinase 53 Troponin I < 0.012 < 0.012 Assessment & Plan - Diagnosis (1) Anemia Qualifiers: Anemia type: other cause Other causes of anemia: acute posthemorrhagic Qualified Code(s): D62 - Acute posthemorrhagic anemia Is this a current diagnosis for this admission?: Yes (2) Lower GI bleeding Is this a current diagnosis for this admission?: Yes (3) History of colon cancer, stage IV Is this a current diagnosis for this admission?: Yes - Plan Summary Plan Summary: This is a 72-year-old female with a history of stage IV colon cancer. She has a known ascending colon lesion. She presented with rectal bleeding. She received 1 unit of packed red blood cells last night, and remained stable. Today, she began having significant/uncontrolled epistaxis. I will consult ENT for evaluation of this. I have also spoken with Dr. Duncan (the patient's oncologist) ensure that bleeding dyscrasias need not be investigated. I will order 1 unit of packed red blood cells and 1 unit of fresh frozen plasma for today. Continue close monitoring. If her bleeding continues, right hemicolectomy may be required. I have discussed this with the patient at length. She wishes to think about her options. I will revisit this conversation at a later time.
--- NOTE | 2018-02-05 19:38 | PDOC PROGRESS REPORT ---
Subjective Progress Note for:: 02/05/18 Subjective:: Patient continue to experience intermittent nose bleed. She was seen in consultation by ENT s/p cauterization. No fever or chills. No chest pain or difficulty with breathing. No nausea or vomiting. She completely Golytely prep for colonoscopy but most bowel movement were bloody material. Reason For Visit: HEMATOCHEZOA, METASTATIC COLON CANCER Physical Exam Vital Signs: Temp Pulse Resp BP Pulse Ox 98.7 F 81 17 141/65 H 98 02/05/18 11:31 02/05/18 19:00 02/05/18 11:31 02/05/18 11:31 02/05/18 11:31 Intake & Output 02/04/18 02/05/18 02/06/18 06:59 06:59 06:59 Intake Total 350 1260 0 Output Total 0 900 Balance 350 360 0 Weight 85.3 kg General appearance: PRESENT: obese Head exam: PRESENT: atraumatic, normocephalic Ear exam: PRESENT: normal external ear exam Mouth exam: PRESENT: moist Teeth exam: PRESENT: poor dentation Respiratory exam: PRESENT: clear to auscultation [place] Cardiovascular exam: PRESENT: RRR, +S1, +S2. ABSENT: diastolic murmur, systolic murmur Vascular exam: PRESENT: normal capillary refill, pallor GI/Abdominal exam: PRESENT: normal bowel sounds, tenderness - more of discomfort over RLQ region.. ABSENT: guarding, mass, organolmegaly, rebound Rectal exam: PRESENT: deferred Extremities exam: ABSENT: pedal edema Musculoskeletal exam: PRESENT: deformity - related to multiple joints involvement with arthritis Psychiatric exam: PRESENT: appropriate affect, normal mood. ABSENT: homicidal ideation, suicidal ideation Skin exam: PRESENT: dry, warm Results Laboratory Results: 02/05/18 15:03 02/04/18 06:59 02/04/18 02/04/18 02/05/18 12:43 23:49 04:58 WBC 43.2 H* 43.5 H* RBC 3.12 L 2.83 L Hgb 9.4 L 8.7 L Hct 30.0 L 27.3 L MCV 96 97 MCH 30.1 30.9 MCHC 31.2 L 32.0 RDW 20.9 H 21.3 H Plt Count 119 L 117 L Seg Neutrophils % Not Reportable Lymphocytes % Not Reportable Monocytes % Not Reportable Eosinophils % Not Reportable Basophils % Not Reportable Absolute Neutrophils Not Reportable Absolute Lymphocytes Not Reportable Absolute Monocytes Not Reportable Absolute Eosinophils Not Reportable Absolute Basophils Not Reportable Blood Type A POSITIVE Antibody Screen NEGATIVE 02/05/18 15:03 WBC 34.8 H* RBC 2.60 L Hgb 8.0 L Hct 25.0 L MCV 96 MCH 30.8 MCHC 32.1 RDW 20.7 H Plt Count 106 L Seg Neutrophils % Lymphocytes % Monocytes % Eosinophils % Basophils % Absolute Neutrophils Absolute Lymphocytes Absolute Monocytes Absolute Eosinophils Absolute Basophils Blood Type Antibody Screen 02/03/18 02/03/18 02/04/18 13:30 13:30 01:07 Creatine Kinase 76 62 Troponin I < 0.012 02/04/18 02/04/18 02/04/18 01:07 06:59 06:59 Creatine Kinase 53 Troponin I < 0.012 < 0.012 Assessment & Plan - Diagnosis (1) Epistaxis not due to trauma Is this a current diagnosis for this admission?: Yes Plan: s/p cauterization with cessation of bleeding presently. Patient will receive 2 units of PRBC transfusion later today. (2) Lower GI bleeding Is this a current diagnosis for this admission?: Yes Plan: Most likely from her ascending colon cancer site. If she continue to demonstrate persistent bleeding she will need surgical intervention. I did discuss case with Dr. Jim,, surgeon and in agreement with right hemicolectomy if medially indicated. She is currently receiving FFP transfusion and will receive 2 units of PRBC thereafter. We will follow her post transfusion CBC and coagulation indices. 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 (5) HTN (hypertension) Qualifiers: Hypertension type: essential hypertension Qualified Code(s): I10 - Essential (primary) hypertension Is this a current diagnosis for this admission?: Yes Plan: Maintain on all current medication management. (6) HLD (hyperlipidemia) Qualifiers: Hyperlipidemia type: unspecified Qualified Code(s): E78.5 - Hyperlipidemia, unspecified Is this a current diagnosis for this admission?: Yes Plan: Maintain on all current medication management. - Time Time Spent with patient: 25-34 minutes Medications reviewed and adjusted accordingly: Yes Anticipated discharge: Home with Homehealth Within: Other - Inpatient Certification Based on my medical assessment, after consideration of the patient's comorbidities, presenting symptoms, or acuity I expect that the services needed warrant INPATIENT care.: Yes I certify that my determination is in accordance with my understanding of Medicare's requirements for reasonable and necessary INPATIENT services [42 CFR 412.3e].: Yes Medical Necessity: Need Close Monitoring Due to Risk of Patient Decompensation, Need For IV Fluids, Need For Continuous Telemetry Monitoring, Need for Surgery, Risk of Complication if Not Cared For in Hospital Post Hospital Care: D/C [employer] Documentation - Plan Summary Plan Summary: See attending physician orders as per outlined care plan.
[2018-02-05] MEDS: OXYMETAZOLINE HCL 0.05% NASAL SPRAY 15 ML BOTTLE NASL SCH (21:28)
[2018-02-05] MEDS: EZETIMIBE 10 MG TABLET PO SCH (21:32)
[2018-02-05] MEDS: BACITRACIN ZINC OINTMENT 15 GM TOP SCH (21:32)
[2018-02-05] MEDS: INSULIN LISPRO 100 UNIT/ML 3 ML VIAL SUBCUT PRN (21:41)
[2018-02-06] MEDS: LANSOPRAZOLE 15 MG TAB.RAP.DR PO SCH (05:00)
[2018-02-06 05:09] LABS: HEMOGLOBIN 8.1 g/dL (12.0-15.5); MEAN CORPUSCULAR HEMOGLOBIN 30.6 pg (27.0-33.4); MEAN CORPUSCULAR HGB CONC 32.2 g/dL (32.0-36.0); MEAN CORPUSCULAR VOLUME 95 fl (80-97); RED BLOOD COUNT 2.63 10^6/uL (3.72-5.28); RED CELL DISTRIBUTION WIDTH 20.4 % (11.5-14.0); WHITE BLOOD COUNT 28.5 10^3/uL (4.0-10.5)
[2018-02-06 05:38] LABS: PLATELET COUNT 88 10^3/uL (150-450)
[2018-02-06 05:40] LABS: ABSOLUTE LYMPHOCYTES# (MANUAL) 2.6 10^3/uL (0.5-4.7); ABSOLUTE MONOCYTES # (MANUAL) 0.3 10^3/uL (0.1-1.4); ABSOLUTE NEUTROPHILS# (MANUAL) 25.4 10^3/uL (1.7-8.2); BASOPHILS % (MANUAL) 0 % (0-2); EOSINOPHILS % (MANUAL) 1 % (0-6); LYMPHOCYTES % (MANUAL) 9 % (13-45); MONOCYTES % (MANUAL) 1 % (3-13); SEGMENTED NEUTROPHILS % (MAN) 89 % (42-78); TOTAL CELLS COUNTED 100
[2018-02-06 05:41] LABS: PLATELET COMMENT DECREASED
[2018-02-06 05:43] LABS: ANISOCYTOSIS 2+; HYPOCHROMASIA 2+; PLATELET LARGE PRESENT; POLYCHROMASIA SLIGHT; SMUDGE CELLS PRESENT; TOXIC GRANULATION 2+; TOXIC VACUOLATION PRESENT
--- NOTE | 2018-02-06 07:30 | CONSULTATION REPORT E ---
[facility] ENT INPATIENT Consultation Report NAME: TRELL ISLAS : 1945 AGE: 72Y DATE: 02/05/2018 ROOM: 431 A TO: KIRA NELSON D.O. FROM: DAVID NORTON M.D. Requesting Physician CHIEF COMPLAINT: Acute recurrent epistaxis. HISTORY OF PRESENT ILLNESS: This is a 72-year-old -[place] female with history of colon cancer, currently receiving chemotherapy. The patient presented to the [facility] Emergency Room on 02/03/2018 complaining of a nosebleed, which began on 02/02. The patient states that the bleeding has been constant and is coming from the left nasal passage. She stated that she had similar nosebleed symptoms on 12/25/2017 and was seen in the [facility] Emergency Room with both nasal passages packed and was given Afrin as well. She followed up with a local ENT office to have the packs removed. In that setting no flexible endoscopy was performed and no nasal cautery was performed. Presently, the patient's left nasal bleeding stopped in the ER setting on 02/02 and the patient was admitted to the hospital for GI bleeding as well. Once admitted the patient's left nasal passage bleeding began again on 02/05. ENT was consulted for definitive management. MEDICATIONS: See the patient's inpatient medication list. ALLERGIES: No known drug allergies. PAST MEDICAL HISTORY: 1. Same as above/see HPI. 2. Hypertension. 3. Diabetes mellitus type 2. 4. GERD. 5. Hypercholesterolemia. 6. History of depression. PAST SURGICAL HISTORY: 1. Hysterectomy. 2. Vascular surgery. 3. Chemotherapy port. 4. Colon biopsies and endoscopy. REVIEW OF SYSTEMS: CONSTITUTIONAL: The symptoms reported. EENT: Acute recurrence epistaxis/see HPI. CARDIOVASCULAR: Hypertension. RESPIRATORY: No symptoms reported. GASTROINTESTINAL: GERD and colon cancer. GENITOURINARY: No symptoms reported. MUSCULOSKELETAL: No symptoms reported. SKIN: No symptoms reported. HEMATOLOGIC/LYMPHATIC: No symptoms reported. NEUROLOGIC/PSYCHOLOGICAL: No symptoms reported. PHYSICAL EXAMINATION: VITAL SIGNS: Were stable and the patient was afebrile. The patient was also noted to be normotensive. GENERAL: The patient is alert and oriented and in no apparent distress. HEAD: Normocephalic, atraumatic. EYES: Extraocular muscles are intact and there is no conjunctivitis. EARS: The left EAC is with complete cerumen impaction. The right EAC is clear and the right TM is intact and there is no middle ear effusion present. NOSE: Nasal septum deviation and turbinate hypertrophy. The right nasal passage was with dark clotted blood and crust and the left nasal passage was noted to be packed with Kleenex, soaked with Afrin with bright red blood was noted. The Kleenex was removed and the nasal passages were suctioned. Extensive right nasal passage dark clotted blood with mucus and crust was removed with no active bleeding noted. The left nasal passage was suctioned with extensive blood clots removed and brisk left septal bleeding in Little's area. The pack was replaced. At this point the patient was consented for nasal cautery with all of the risks and complications reviewed in detail, which she voiced an understanding of and agreed with and consent was obtained. This was followed by silver nitrate cautery, which controlled the acute bleeding. The patient was sprayed with Afrin nasal spray through each nasal passage prior to flexible endoscopy. At this point flexible fiberoptic endoscopy was performed with bright red blood clots noted on the left. There were no obvious masses or lesions noted. Additional suctioning was performed and there were 2 small left mid septal areas of bright red oozing. Silver nitrate cautery was applied to these areas as well. At this point additional suctioning and endoscopy was performed with no additional active bleeding noted. The flexible endoscope was withdrawn and bacitracin ointment was applied to each nasal passage. NECK: Supple and nontender. The patient was noted to have left base of neck fullness that was approximately 6 x 8 cm in size and was supple on palpation and appeared consistent with a lipoma process (the patient stated that she has had this entity at the left base of neck, which has been unchanged over the past 5 to 10 years and her [facility] is also aware of this process and has been monitoring). HEART: Regular rate and rhythm without murmur. LUNGS: Clear to auscultation bilaterally. SKIN: Warm, dry, and normal turgor with no rashes. NEUROLOGIC: Cranial nerves II through XII are grossly intact. The patient was able to communicate clearly and without difficulty. PROCEDURES: 1. Bilateral flexible fiberoptic transnasal endoscopy: After verbal consent for bilateral transnasal flexible endoscopy Afrin was administered, 2 sprays per nasal passage. This was followed by bilateral transnasal flexible endoscopy with findings as noted above. There were no complications. 2. Left nasal cautery with Silver Nitrate: After informed consent and site prep she underwent left nasal silver nitrate cautery at 3 locations. This was followed by placement of bacitracin ointment as noted above. There were no complications. LABORATORY DATA: From 02/03/2018; H and H was 9 and 29 respectively and the platelets were 124. ASSESSMENT: 1. Acute recurrent epistaxis. 2. Left complete cerumen impaction. 3. Nasal septal deviation. 4. Turbinate hypertrophy. PLAN: 1. The patient is status post uneventful bilateral flexible diagnostic transnasal endoscopy and left nasal cautery with silver nitrate at multiple locations. The patient will have Afrin nasal spray administered, 2 sprays b.i.d. along with bacitracin ointment administered to each nasal passage b.i.d. The patient will be followed by ENT. The nursing staff is aware to contact ENT as needed for any additional bleeding or questions or concerns. Total consult/face to face time with multiple procedures performed was 40 minutes. DICTATING PHYSICIAN: KIRA NELSON D.O. [id number] PHY#: [id number] ID: [id number] JOB#: [id number] ACCT: [id number] cc:KIRA NELSON D.O. > MTDD
--- NOTE | 2018-02-06 11:11 | PDOC PROGRESS REPORT ---
Subjective Subjective:: Patient reports no further bleeding from her nose and or rectum; subsequent to her visit at bedside, the nurse reports she had bleeding of both sides. Reason For Visit: GI BLEED Physical Exam Vital Signs: Temp Pulse Resp BP Pulse Ox 98.7 F 81 19 156/57 H 100 02/06/18 09:04 02/06/18 09:04 02/06/18 09:04 02/06/18 09:04 02/06/18 09:04 Intake & Output 02/05/18 02/06/18 02/07/18 06:59 06:59 06:59 Intake Total 1260 1020 Output Total 900 Balance 360 1020 General appearance: PRESENT: no acute distress GI/Abdominal exam: PRESENT: other - Abdomen completely benign no peritoneal signs no rigidity Results Laboratory Results: 02/06/18 04:54 02/04/18 06:59 02/04/18 02/05/18 02/06/18 12:43 15:03 04:54 WBC 34.8 H* 28.5 H RBC 2.60 L 2.63 L Hgb 8.0 L 8.1 L Hct 25.0 L 25.0 L MCV 96 95 MCH 30.8 30.6 MCHC 32.1 32.2 RDW 20.7 H 20.4 H Plt Count 106 L 88 L Seg Neutrophils % Not Reportable Lymphocytes % Not Reportable Monocytes % Not Reportable Eosinophils % Not Reportable Basophils % Not Reportable Absolute Neutrophils Not Reportable Absolute Lymphocytes Not Reportable Absolute Monocytes Not Reportable Absolute Eosinophils Not Reportable Absolute Basophils Not Reportable Blood Type A POSITIVE Antibody Screen NEGATIVE 02/04/18 11:11 Clean Catch Midstream Urine Culture - Final Mixed Urogenital Tiffanie 02/03/18 02/03/18 02/04/18 13:30 13:30 01:07 Creatine Kinase 76 62 Troponin I < 0.012 02/04/18 02/04/18 02/04/18 01:07 06:59 06:59 Creatine Kinase 53 Troponin I < 0.012 < 0.012 Assessment & Plan - Diagnosis (2) Lower GI bleeding Is this a current diagnosis for this admission?: Yes Plan: Impression: Concern patient has recurrent bleeding from multiple mucosal sources; persisting leukocytosis likely due to Neupogen; decreasing platelets. Recommendations: 1. I believe patient's bleeding diathesis is a systemic problem rather than organ-specific 2. We will discuss with the primary care team management strategies going forward; patient herself would like to continue to be aggressive with her m edical care.
[2018-02-06] MEDS: HUM INSULIN NPH/REG INSULIN HM 100 UNIT/1 ML 3 ML SUBCUT SCH ×2 (12:16→18:51)
[2018-02-06] MEDS: BACITRACIN ZINC OINTMENT 15 GM TOP SCH ×2 (12:22→23:38)
[2018-02-06] MEDS: OXYMETAZOLINE HCL 0.05% NASAL SPRAY 15 ML BOTTLE NASL SCH ×2 (12:22→23:37)
[2018-02-06] MEDS: LOSARTAN POTASSIUM 50 MG TABLET PO SCH (12:23)
[2018-02-06] MEDS: LORATADINE 10 MG TABLET PO SCH (12:23)
[2018-02-06] MEDS: INSULIN LISPRO 100 UNIT/ML 3 ML VIAL SUBCUT PRN (12:58)
--- NOTE | 2018-02-06 19:00 | PDOC PROGRESS REPORT ---
Subjective Progress Note for:: 02/06/18 Subjective:: Patient reported no recurrent nose bleed but had expectoration of old blood earlier today. She continue to have intermittent lower GI bleeding episodes. She reported preceding RLQ region abdominal pain associated with passage of blood. No nausea or vomiting. Tolerating oral feeding. No difficulty with breathing or chest pain. No fever or chills. Reason For Visit: GI BLEED Physical Exam Vital Signs: Temp Pulse Resp BP Pulse Ox 97.4 F 78 19 148/50 H 99 02/06/18 15:40 02/06/18 15:40 02/06/18 15:40 02/06/18 15:40 02/06/18 15:40 Intake & Output 02/05/18 02/06/18 02/07/18 06:59 06:59 06:59 Intake Total 1260 1020 Output Total 900 Balance 360 1020 General appearance: PRESENT: no acute distress Head exam: PRESENT: atraumatic, normocephalic Eye exam: PRESENT: conjunctiva pink, EOMI, PERRLA. ABSENT: scleral icterus Ear exam: PRESENT: normal external ear exam Mouth exam: PRESENT: moist Teeth exam: PRESENT: poor dentation Respiratory exam: PRESENT: clear to auscultation [place], decreased breath sounds - at lung bases Cardiovascular exam: PRESENT: RRR. ABSENT: diastolic murmur, rubs, systolic murmur Vascular exam: PRESENT: normal capillary refill, pallor GI/Abdominal exam: PRESENT: normal bowel sounds, soft. ABSENT: distended, guarding, mass, organolmegaly, rebound, tenderness Extremities exam: ABSENT: pedal edema Musculoskeletal exam: PRESENT: deformity - related to multiple joints involvement with arthritis Neurological exam: PRESENT: alert, awake, oriented to person, oriented to place, oriented to time, oriented to situation, CN II-XII grossly intact. ABSENT: motor sensory deficit Psychiatric exam: PRESENT: appropriate affect, normal mood. ABSENT: homicidal ideation, suicidal ideation Skin exam: PRESENT: dry, warm Results Laboratory Results: 02/06/18 04:54 02/04/18 06:59 02/04/18 02/06/18 12:43 04:54 WBC 28.5 H RBC 2.63 L Hgb 8.1 L Hct 25.0 L MCV 95 MCH 30.6 MCHC 32.2 RDW 20.4 H Plt Count 88 L Seg Neutrophils % Not Reportable Lymphocytes % Not Reportable Monocytes % Not Reportable Eosinophils % Not Reportable Basophils % Not Reportable Absolute Neutrophils Not Reportable Absolute Lymphocytes Not Reportable Absolute Monocytes Not Reportable Absolute Eosinophils Not Reportable Absolute Basophils Not Reportable Blood Type A POSITIVE Antibody Screen NEGATIVE 02/04/18 11:11 Clean Catch Midstream Urine Culture - Final Mixed Urogenital Tiffanie 02/03/18 02/03/18 02/04/18 13:30 13:30 01:07 Creatine Kinase 76 62 Troponin I < 0.012 02/04/18 02/04/18 02/04/18 01:07 06:59 06:59 Creatine Kinase 53 Troponin I < 0.012 < 0.012 Assessment & Plan - Diagnosis (1) Epistaxis not due to trauma Is this a current diagnosis for this admission?: Yes (2) Lower GI bleeding Is this a current diagnosis for this admission?: Yes (4) Type 2 diabetes mellitus Qualifiers: Diabetes mellitus roasterman insulin use: with detention use Diabetes mellitus complication status: with neurologic complications Diabetes mellitus complication detail: with polyneuropathy Qualified Code(s): E11.42 - Type 2 di abetes mellitus with diabetic polyneuropathy; Z79.4 - roasterman (current) use of insulin Is this a current diagnosis for this admission?: Yes (5) HTN (hypertension) Qualifiers: Hypertension type: essential hypertension Qualified Code(s): I10 - Essential (primary) hypertension Is this a current diagnosis for this admission?: Yes (6) HLD (hyperlipidemia) Qualifiers: Hyperlipidemia type: unspecified Qualified Code(s): E78.5 - Hyperlipidemia, unspecified Is this a current diagnosis for this admission?: Yes - Time Time Spent with patient: 25-34 minutes Medications reviewed and adjusted accordingly: Yes Anticipated discharge: Home with Homehealth Within: Other - Inpatient Certification Based on my medical assessment, after consideration of the patient's comorbidities, presenting symptoms, or acuity I expect that the services needed warrant INPATIENT care.: Yes I certify that my determination is in accordance with my understanding of Medicare's requirements for reasonable and necessary INPATIENT services [42 CFR 412.3e].: Yes Medical Necessity: Need Close Monitoring Due to Risk of Patient Decompensation, Need For Continuous Telemetry Monitoring, Need for Surgery, Risk of Complication if Not Cared For in Hospital Post Hospital Care: D/C [employer] Documentation - Plan Summary Plan Summary: Continue current medication management. Obtain CBC stat. Obtain bleeding scan. Consider PRBC transfusion if her Hgb level is below 8.0 gm/dL. Surgical input appreciated.
[2018-02-06 19:33] LABS: HEMATOCRIT 24.5 % (36.0-47.0); HEMOGLOBIN 8.1 g/dL (12.0-15.5); MEAN CORPUSCULAR VOLUME 94 fl (80-97); RED CELL DISTRIBUTION WIDTH 19.9 % (11.5-14.0); WHITE BLOOD COUNT 29.1 10^3/uL (4.0-10.5)
[2018-02-06 19:49] LABS: PLATELET COUNT 93 10^3/uL (150-450)
[2018-02-06 19:51] LABS: ABSOLUTE LYMPHOCYTES# (MANUAL) 4.9 10^3/uL (0.5-4.7); ABSOLUTE MONOCYTES # (MANUAL) 0.3 10^3/uL (0.1-1.4); ABSOLUTE NEUTROPHILS# (MANUAL) 23.3 10^3/uL (1.7-8.2); BASOPHILS % (MANUAL) 0 % (0-2); EOSINOPHILS % (MANUAL) 2 % (0-6); LYMPHOCYTES % (MANUAL) 17 % (13-45); MONOCYTES % (MANUAL) 1 % (3-13); SEGMENTED NEUTROPHILS % (MAN) 80 % (42-78); TOTAL CELLS COUNTED 100
[2018-02-06 19:53] LABS: ANISOCYTOSIS 2+; BURR CELLS SLIGHT; PLATELET COMMENT DECREASED; POIKILOCYTOSIS SLIGHT; POLYCHROMASIA SLIGHT
[2018-02-06 19:54] LABS: TOXIC GRANULATION 1+
[2018-02-06] MEDS: SODIUM CHLORIDE NASAL SPRAY 44 ML NASL SCH (23:37)
--- NOTE | 2018-02-06 23:37 | RADIOLOGY REPORT (SQ) ---
EXAM DESCRIPTION: NM GASTROINTESTINAL BLEEDING COMPLETED DATE/TME: 02/06/2018 00:00 CLINICAL HISTORY: 72 years, Female, Recurrent lower GI bleeding COMPARISON: None. RADIONUCLIDE AND DOSE: 30 millicuries of technetium labeled Ultratag RBC. ADDITIONAL DRUGS AND DOSES: None TECHNIQUE: Images were obtained in the frontal projection. Flow images were obtained at the rate of two second per frame, followed by delayed imaging done at the rate of two minutes per frame for a total of 60 minutes LIMITATIONS: None. FINDINGS: There is physiologic tracer uptake in the liver, visualized cardiac chambers, IVC and the abdominal aorta and the bilateral common iliac vessels. There is no area of abnormal tracer excretion in the distribution of large bowel which increases in intensity over time or shows antegrade or retrograde movement in the large bowel to suggest active lower GI bleeding. There are few faint areas of irregular tracer presence in the proximal large bowel along the inferior margin of the liver which can be seen in an infectious process like acute diverticulitis IMPRESSION: There is no area of abnormal tracer excretion in the distribution of large bowel which increases in intensity over time or shows antegrade or retrograde movement in the large bowel to suggest active lower GI bleeding There are few faint areas of irregular tracer presence in the proximal large bowel along the inferior margin of the liver which can be seen in an infectious process like acute diverticulitis Delayed imaging can be obtained at 24 hours, following tracer injection time, to look for any delayed intermittent bleeding in the lower GI tract. copyright 2010 [employer]- All Rights Reserved
[2018-02-06] MEDS: EZETIMIBE 10 MG TABLET PO SCH (23:38)
[2018-02-06] MEDS: METOPROLOL SUCCINATE 50 MG TAB.SR.24H PO SCH (23:38)
[2018-02-07] MEDS: LANSOPRAZOLE 15 MG TAB.RAP.DR PO SCH (06:36)
[2018-02-07] MEDS: HUM INSULIN NPH/REG INSULIN HM 100 UNIT/1 ML 3 ML SUBCUT SCH ×2 (09:26→17:42)
[2018-02-07] MEDS: METOPROLOL SUCCINATE 50 MG TAB.SR.24H PO SCH ×2 (09:54→21:50)
[2018-02-07] MEDS: BACITRACIN ZINC OINTMENT 15 GM TOP SCH ×2 (09:56→21:51)
[2018-02-07] MEDS: OXYMETAZOLINE HCL 0.05% NASAL SPRAY 15 ML BOTTLE NASL SCH ×2 (09:56→21:51)
[2018-02-07] MEDS: SODIUM CHLORIDE NASAL SPRAY 44 ML NASL SCH ×2 (09:57→21:51)
[2018-02-07] MEDS: LOSARTAN POTASSIUM 50 MG TABLET PO SCH (09:57)
[2018-02-07] MEDS: LORATADINE 10 MG TABLET PO SCH (09:57)
--- NOTE | 2018-02-07 10:48 | PDOC PROGRESS REPORT ---
Subjective Progress Note for:: 02/07/18 Subjective:: No bloody BM last night or this am. Denies abdominal Pains Reason For Visit: GI BLEED Physical Exam Vital Signs: Temp Pulse Resp BP Pulse Ox 97.9 F 76 19 144/71 H 100 02/07/18 08:41 02/07/18 08:41 02/07/18 08:41 02/07/18 08:41 02/07/18 08:41 Intake & Output 02/06/18 02/07/18 02/08/18 06:59 06:59 06:59 Intake Total 1020 975 Balance 1020 975 Weight 85.3 kg Exam: Abdomen is soft and non tender Results Laboratory Results: 02/06/18 19:22 02/04/18 06:59 02/06/18 19:22 WBC 29.1 H RBC 2.60 L Hgb 8.1 L Hct 24.5 L MCV 94 MCH 31.0 MCHC 33.0 RDW 19.9 H Plt Count 93 L Seg Neutrophils % Not Reportable Lymphocytes % Not Reportable Monocytes % Not Reportable Eosinophils % Not Reportable Basophils % Not Reportable Absolute Neutrophils Not Reportable Absolute Lymphocytes Not Reportable Absolute Monocytes Not Reportable Absolute Eosinophils Not Reportable Absolute Basophils Not Reportable 02/04/18 11:11 Clean Catch Midstream Urine Culture - Final Mixed Urogenital Tiffanie 02/03/18 02/03/18 02/04/18 13:30 13:30 01:07 Creatine Kinase 76 62 Troponin I < 0.012 02/04/18 02/04/18 02/04/18 01:07 06:59 06:59 Creatine Kinase 53 Troponin I < 0.012 < 0.012 Impressions: GI Bleed Scan Nuclear Medicine 02/06/18 00:00 IMPRESSION: There is no area of abnormal tracer excretion in the distribution of large bowel which increases in intensity over time or shows antegrade or retrograde movement in the large bowel to suggest active lower GI bleeding There are few faint areas of irregular tracer presence in the proximal large bowel along the inferior margin of the liver which can be seen in an infectious process like acute diverticulitis Delayed imaging can be obtained at 24 hours, following tracer injection time, to look for any delayed intermittent bleeding in the lower GI tract. copyright 2010 [employer]- All Rights Reserved Assessment & Plan - Diagnosis (1) Anemia Qualifiers: Anemia type: other cause Other causes of anemia: acute posthemorrhagic Qualified Code(s): D62 - Acute posthemorrhagic anemia Is this a current diagnosis for this admission?: Yes (2) Anterior epistaxis Is this a current diagnosis for this admission?: Yes (3) Colon cancer Qualifiers: Colon location: unspecified part of colon Qualified Code(s): C18.9 - Malignant neoplasm of colon, unspecified Is this a current diagnosis for this admission?: Yes (4) History of colon cancer, stage IV Is this a current diagnosis for this admission?: Yes - Time Time Spent with patient: 15-24 minutes - Plan Summary Plan Summary: Gi bleeding appears resolved at this time Will sign off.
--- NOTE | 2018-02-07 18:17 | PDOC PROGRESS REPORT ---
Subjective Progress Note for:: 02/07/18 Subjective:: Patient continue to experience intermittent lower GI bleeding. Her bleeding scan suggested possible pathologic process in the ascending colon region. No nausea or vomiting. No chest pain or difficult with breathing. No nose bleed since last clinical evaluation. No fever or chills. Reason For Visit: GI BLEED Physical Exam Vital Signs: Temp Pulse Resp BP Pulse Ox 97.9 F 79 16 122/56 L 100 02/07/18 15:38 02/07/18 15:38 02/07/18 15:38 02/07/18 15:38 02/07/18 15:38 Intake & Output 02/06/18 02/07/18 02/08/18 06:59 06:59 06:59 Intake Total 1020 975 Balance 1020 975 Weight 85.3 kg Results Laboratory Results: 02/06/18 19:22 02/04/18 06:59 02/06/18 19:22 WBC 29.1 H RBC 2.60 L Hgb 8.1 L Hct 24.5 L MCV 94 MCH 31.0 MCHC 33.0 RDW 19.9 H Plt Count 93 L Seg Neutrophils % Not Reportable Lymphocytes % Not Reportable Monocytes % Not Reportable Eosinophils % Not Reportable Basophils % Not Reportable Absolute Neutrophils Not Reportable Absolute Lymphocytes Not Reportable Absolute Monocytes Not Reportable Absolute Eosinophils Not Reportable Absolute Basophils Not Reportable 02/03/18 02/03/18 02/04/18 13:30 13:30 01:07 Creatine Kinase 76 62 Troponin I < 0.012 02/04/18 02/04/18 02/04/18 01:07 06:59 06:59 Creatine Kinase 53 Troponin I < 0.012 < 0.012 Impressions: GI Bleed Scan Nuclear Medicine 02/06/18 00:00 IMPRESSION: There is no area of abnormal tracer excretion in the distribution of large bowel which increases in intensity over time or shows antegrade or retrograde movement in the large bowel to suggest active lower GI bleeding There are few faint areas of irregular tracer presence in the proximal large bowel along the inferior margin of the liver which can be seen in an infectious process like acute diverticulitis Delayed imaging can be obtained at 24 hours, following tracer injection time, to look for any delayed intermittent bleeding in the lower GI tract. copyright 2011 [employer]- All Rights Reserved Assessment & Plan - Diagnosis (1) Epistaxis not due to trauma Is this a current diagnosis for this admission?: Yes (2) Lower GI bleeding Is this a current diagnosis for this admission?: Yes (4) Type 2 diabetes mellitus Qualifiers: Diabetes mellitus chcf insulin use: with termite control servicer use Diabetes mellitus complication status: with neurologic complications Diabetes mellitus complication detail: with polyneuropathy Qualified Code(s): E11.42 - Type 2 diabetes mellitus with diabetic polyneuropathy; Z79.4 - nursing home (current) use of insulin Is this a current diagnosis for this admission?: Yes (5) HTN (hypertension) Qualifiers: Hypertension type: essential hypertension Qualified Code(s): I10 - Essential (primary) hypertension Is this a current diagnosis for this admission?: Yes (6) HLD (hyperlipidemia) Qualifiers: Hyperlipidemia type: unspecified Qualified Code(s): E78.5 - Hyperlipidemia, unspecified Is this a current diagnosis for this admission?: Yes - Time Time Spent with patient: 25-34 minutes Medications reviewed and adjusted accordingly: Yes Anticipated discharge: Home with Homehealth Within: Other - Inpatient Certification Based on my medical assessment, after consideration of the patient's comorbidities, presenting symptoms, or acuity I expect that the services needed warrant INPATIENT care.: Yes I certify that my determination is in accordance with my understanding of Medicare's requirements for reasonable and necessary INPATIENT services [42 CFR 412.3e].: Yes Medical Necessity: Need For IV Fluids, Need For Continuous Telemetry Monitoring, Need for Surgery, Risk of Complication if Not Cared For in Hospital, Risk of Diagnosis Which Will Require Inpatient Eval/Care/Monitoring Post Hospital Care: D/C Assistant Offset Press Operator Documentation - Plan Summary Plan Summary: We will obtain delayed bleeding scan and discussed with Dr. Black national van truck driver surgicalist regarding further evaluation as indicated. Repeat CBC and BMP.
[2018-02-07 19:18] LABS: HEMATOCRIT 23.4 % (36.0-47.0); MEAN CORPUSCULAR HEMOGLOBIN 31.4 pg (27.0-33.4); MEAN CORPUSCULAR HGB CONC 32.4 g/dL (32.0-36.0); MEAN CORPUSCULAR VOLUME 97 fl (80-97); RED BLOOD COUNT 2.41 10^6/uL (3.72-5.28); RED CELL DISTRIBUTION WIDTH 20.6 % (11.5-14.0); WHITE BLOOD COUNT 21.3 10^3/uL (4.0-10.5)
[2018-02-07 19:37] LABS: PLATELET COUNT 95 10^3/uL (150-450)
[2018-02-07 19:42] LABS: ABSOLUTE LYMPHOCYTES# (MANUAL) 2.6 10^3/uL (0.5-4.7); ABSOLUTE MONOCYTES # (MANUAL) 0.4 10^3/uL (0.1-1.4); ABSOLUTE NEUTROPHILS# (MANUAL) 18.3 10^3/uL (1.7-8.2); BAND NEUTROPHILS % (MANUAL) 1 % (3-5); BASOPHILS % (MANUAL) 0 % (0-2); EOSINOPHILS % (MANUAL) 0 % (0-6); LYMPHOCYTES % (MANUAL) 12 % (13-45); MONOCYTES % (MANUAL) 2 % (3-13); SEGMENTED NEUTROPHILS % (MAN) 85 % (42-78); TOTAL CELLS COUNTED 100
[2018-02-07 19:43] LABS: PLATELET COMMENT DECREASED
[2018-02-07 19:45] LABS: ANISOCYTOSIS 2+; OVALOCYTES SLIGHT; PLATELET LARGE PRESENT; POIKILOCYTOSIS SLIGHT; POLYCHROMASIA SLIGHT; TEAR DROP CELLS SLIGHT; TOXIC GRANULATION 1+
[2018-02-07 19:50] LABS: HEMOGLOBIN 7.6 g/dL (12.0-15.5)
[2018-02-07] MEDS: INSULIN LISPRO 100 UNIT/ML 3 ML VIAL SUBCUT PRN (21:49)
[2018-02-07] MEDS: EZETIMIBE 10 MG TABLET PO SCH (21:50)
[2018-02-08] MEDS: LANSOPRAZOLE 15 MG TAB.RAP.DR PO SCH (05:11)
[2018-02-08] MEDS: NORMAL SALINE 1000 ML 1,000 ML IV PRN ×2 (05:16→22:31)
[2018-02-08 08:10] LABS: INTERNATIONAL RATION (INR) 1.08; PROTHROMBIN TIME 14.5 SEC (11.4-15.4)
[2018-02-08 08:17] LABS: ABSOLUTE EOSINOPHILS # (AUTO) 0.1 10^3/uL (0.0-0.6); ABSOLUTE LYMPHOCYTES (AUTO) 2.2 10^3/uL (0.5-4.7); ABSOLUTE MONOCYTES (AUTO) 1.5 10^3/uL (0.1-1.4); ABSOLUTE NEUT (AUTO) 15.8 10^3/uL (1.7-8.2); BASOPHILS % (AUTO) 0.2 % (0-2); EOSINOPHILS % (AUTO) 0.6 % (0-6); HEMATOCRIT 28.3 % (36.0-47.0); HEMOGLOBIN 9.5 g/dL (12.0-15.5); LYMPHOCYTES % (AUTO) 11.1 % (13-45); MEAN CORPUSCULAR HEMOGLOBIN 30.5 pg (27.0-33.4); MEAN CORPUSCULAR HGB CONC 33.5 g/dL (32.0-36.0); MONOCYTES % (AUTO) 7.7 % (3-13); RED BLOOD COUNT 3.11 10^6/uL (3.72-5.28); RED CELL DISTRIBUTION WIDTH 20.2 % (11.5-14.0); SEGMENTED NEUTROPHILS % (AUTO) 80.4 % (42-78); TOTAL CELLS COUNTED % (AUTO) 100 %; WHITE BLOOD COUNT 19.7 10^3/uL (4.0-10.5)
[2018-02-08 08:28] LABS: ANION GAP 6 (5-19); BLOOD UREA NITROGEN 7 mg/dL (7-20); CALCIUM 9.3 mg/dL (8.4-10.2); CARBON DIOXIDE 25 mmol/L (22-30); CHLORIDE 110 mmol/L (98-107); GLUCOSE 164 mg/dL (75-110); POTASSIUM 3.9 mmol/L (3.6-5.0); SODIUM 140.8 mmol/L (137-145)
[2018-02-08] MEDS: HUM INSULIN NPH/REG INSULIN HM 100 UNIT/1 ML 3 ML SUBCUT SCH ×2 (08:29→17:55)
[2018-02-08 09:03] LABS: MEAN CORPUSCULAR VOLUME 91 fl (80-97); PLATELET COUNT 92 10^3/uL (150-450)
[2018-02-08] MEDS: LOSARTAN POTASSIUM 50 MG TABLET PO SCH (09:39)
[2018-02-08] MEDS: LORATADINE 10 MG TABLET PO SCH (09:41)
[2018-02-08] MEDS: OXYMETAZOLINE HCL 0.05% NASAL SPRAY 15 ML BOTTLE NASL SCH ×2 (09:41→22:30)
[2018-02-08] MEDS: SODIUM CHLORIDE NASAL SPRAY 44 ML NASL SCH ×2 (09:41→22:30)
[2018-02-08] MEDS: BACITRACIN ZINC OINTMENT 15 GM TOP SCH ×2 (09:42→22:30)
--- NOTE | 2018-02-08 09:57 | PDOC PROGRESS REPORT ---
Subjective Progress Note for:: 02/08/18 Subjective:: Had a small amount blood tinged stool at 3 am. Given 2 units PRBC with Hb increased from 7.6 to 9.4 Feels comfortable. Mild discomfort RLQ and back. Reason For Visit: GI BLEED Physical Exam Vital Signs: Temp Pulse Resp BP Pulse Ox 98.1 F 79 16 149/69 H 99 02/08/18 07:21 02/08/18 07:21 02/08/18 07:21 02/08/18 07:21 02/08/18 07:21 Intake & Output 02/07/18 02/08/18 02/09/18 06:59 06:59 06:59 Intake Total 975 2498 Balance 975 2498 Weight 85.3 kg 85.3 kg Exam: abd is soft non tender Results Laboratory Results: 02/08/18 07:43 02/08/18 07:43 02/07/18 02/07/18 02/07/18 18:30 19:09 20:49 WBC Cancelled 21.3 H RBC Cancelled 2.41 L Hgb Cancelled 7.6 L Hct Cancelled 23.4 L MCV Cancelled 97 MCH Cancelled 31.4 MCHC Cancelled 32.4 RDW Cancelled 20.6 H Plt Count Cancelled 95 L Seg Neutrophils % Cancelled Not Reportable Lymphocytes % Cancelled Not Reportable Monocytes % Cancelled Not Reportable Eosinophils % Cancelled Not Reportable Basophils % Cancelled Not Reportable Absolute Neutrophils Cancelled Not Reportable Absolute Lymphocytes Cancelled Not Reportable Absolute Monocytes Cancelled Not Reportable Absolute Eosinophils Cancelled Not Reportable Absolute Basophils Cancelled Not Reportable Sodium Potassium Chloride Carbon Dioxide Anion Gap BUN Creatinine Est GFR ( Amer) Est GFR (Non-Af Amer) Glucose Calcium Blood Type A POSITIVE Antibody Screen NEGATIVE 02/08/18 02/08/18 07:43 07:43 WBC 19.7 H RBC 3.11 L Hgb 9.5 L Hct 28.3 L MCV 91 D MCH 30.5 MCHC 33.5 RDW 20.2 H Plt Count 92 L Seg Neutrophils % 80.4 H Lymphocytes % 11.1 L Monocytes % 7.7 Eosinophils % 0.6 Basophils % 0.2 Absolute Neutrophils 15.8 H Absolute Lymphocytes 2.2 Absolute Monocytes 1.5 H Absolute Eosinophils 0.1 Absolute Basophils 0.0 Sodium 140.8 Potassium 3.9 Chloride 110 H Carbon Dioxide 25 Anion Gap 6 BUN 7 Creatinine 0.63 Est GFR ( Amer) > 60 Est GFR (Non-Af Amer) > 60 Glucose 164 H Calcium 9.3 Blood Type Antibody Screen 02/03/18 02/03/18 02/04/18 13:30 13:30 01:07 Creatine Kinase 76 62 Troponin I < 0.012 02/04/18 02/04/18 02/04/18 01:07 06:59 06:59 Creatine Kinase 53 Troponin I < 0.012 < 0.012 Impressions: GI Bleed Scan Nuclear Medicine 02/06/18 00:00 IMPRESSION: There is no area of abnormal tracer excretion in the distribution of large bowel which increases in intensity over time or shows antegrade or retrograde movement in the large bowel to suggest active lower GI bleeding There are few faint areas of irregular tracer presence in the proximal large bowel along the inferior margin of the liver which can be seen in an infectious process like acute diverticulitis Delayed imaging can be obtained at 24 hours, following tracer injection time, to look for any delayed intermittent bleeding in the lower GI tract. copyright 2011 [employer]- All Rights Reserved Assessment & Plan - Diagnosis (1) Anemia Qualifiers: Anemia type: other cause Other causes of anemia: acute posthemorrhagic Qualified Code(s): D62 - Acute posthemorrhagic anemia Is this a current diagnosis for this admission?: Yes (2) Anterior epistaxis Is this a current diagnosis for this admission?: Yes (3) Colon cancer Qualifiers: Colon location: unspecified part of colon Qualified Code(s): C18.9 - Malignant neoplasm of colon, unspecified Is this a current diagnosis for this admission?: Yes (4) History of colon cancer, stage IV Is this a current diagnosis for this admission?: Yes - Time Time Spent with patient: 15-24 minutes - Inpatient Certification Medical Necessity: Need For IV Fluids, Risk of Complication if Not Cared For in Hospital - Plan Summary Plan Summary: Will continue clear liquids today and place on modified bowel prep tomorrow for colonoscopy by Dr Rossi Saturday. Continue monitor H/H
--- NOTE | 2018-02-08 13:24 | PDOC PROGRESS REPORT ---
Subjective Progress Note for:: 02/08/18 Subjective:: This patient still having some blood in the stools a couple of bowel movements seen by the general surgery today scheduled for colonoscopy on a Saturday and as needed blood transfusions Patient is denied any abdominal pain no nausea no no chest pain no short of breath Reason For Visit: GI BLEED Physical Exam Vital Signs: Temp Pulse Resp BP Pulse Ox 98.3 F 77 16 137/67 H 99 02/08/18 11:08 02/08/18 11:08 02/08/18 11:08 02/08/18 11:08 02/08/18 11:08 Intake & Output 02/07/18 02/08/18 02/09/18 06:59 06:59 06:59 Intake Total 975 2498 Balance 975 2498 Weight 85.3 kg 85.3 kg General appearance: PRESENT: no acute distress, well-developed, well-nourished Head exam: PRESENT: atraumatic, normocephalic Eye exam: PRESENT: conjunctiva pink, EOMI, PERRLA. ABSENT: scleral icterus Ear exam: PRESENT: normal external ear exam Mouth exam: PRESENT: moist, tongue midline Neck exam: PRESENT: full ROM. ABSENT: carotid bruit, JVD, lymphadenopathy, thyromegaly Respiratory exam: PRESENT: clear to auscultation [place] Cardiovascular exam: PRESENT: RRR. ABSENT: diastolic murmur, rubs, systolic murmur Pulses: PRESENT: normal dorsalis pedis pul, +2 pedal pulses bilateral Vascular exam: PRESENT: normal capillary refill GI/Abdominal exam: PRESENT: normal bowel sounds, soft. ABSENT: distended, guarding, mass, organolmegaly, rebound, tenderness Rectal exam: PRESENT: deferred Extremities exam: ABSENT: pedal edema Neurological exam: PRESENT: alert, awake, oriented to person, oriented to place, oriented to time, oriented to situation, CN II-XII grossly intact. ABSENT: motor sensory deficit Psychiatric exam: PRESENT: appropriate affect, normal mood. ABSENT: homicidal ideation, suicidal ideation Skin exam: PRESENT: dry, intact, warm. ABSENT: cyanosis, rash Results Laboratory Results: 02/08/18 07:43 02/08/18 07:43 02/07/18 02/07/18 02/07/18 18:30 19:09 20:49 WBC Cancelled 21.3 H RBC Cancelled 2.41 L Hgb Cancelled 7.6 L Hct Cancelled 23.4 L MCV Cancelled 97 MCH Cancelled 31.4 MCHC Cancelled 32.4 RDW Cancelled 20.6 H Plt Count Cancelled 95 L Seg Neutrophils % Cancelled Not Reportable Lymphocytes % Cancelled Not Reportable Monocytes % Cancelled Not Reportable Eosinophils % Cancelled Not Reportable Basophils % Cancelled Not Reportable Absolute Neutrophils Cancelled Not Reportable Absolute Lymphocytes Cancelled Not Reportable Absolute Monocytes Cancelled Not Reportable Absolute Eosinophils Cancelled Not Reportable Absolute Basophils Cancelled Not Reportable Sodium Potassium Chloride Carbon Dioxide Anion Gap BUN Creatinine Est GFR ( Amer) Est GFR (Non-Af Amer) Glucose Calcium Blood Type A POSITIVE Antibody Screen NEGATIVE 02/08/18 02/08/18 07:43 07:43 WBC 19.7 H RBC 3.11 L Hgb 9.5 L Hct 28.3 L MCV 91 D MCH 30.5 MCHC 33.5 RDW 20.2 H Plt Count 92 L Seg Neutrophils % 80.4 H Lymphocytes % 11.1 L Monocytes % 7.7 Eosinophils % 0.6 Basophils % 0.2 Absolute Neutrophils 15.8 H Absolute Lymphocytes 2.2 Absolute Monocytes 1.5 H Absolute Eosinophils 0.1 Absolute Basophils 0.0 Sodium 140.8 Potassium 3.9 Chloride 110 H Carbon Dioxide 25 Anion Gap 6 BUN 7 Creatinine 0.63 Est GFR ( Amer) > 60 Est GFR (Non-Af Amer) > 60 Glucose 164 H Calcium 9.3 Blood Type Antibody Screen 02/03/18 02/03/18 02/04/18 13:30 13:30 01:07 Creatine Kinase 76 62 Troponin I < 0.012 02/04/18 02/04/18 02/04/18 01:07 06:59 06:59 Creatine Kinase 53 Troponin I < 0.012 < 0.012 Impressions: GI Bleed Scan Nuclear Medicine 02/06/18 00:00 IMPRESSION: There is no area of abnormal tracer excretion in the distribution of large bowel which increases in intensity over time or shows antegrade or retrograde movement in the large bowel to suggest active lower GI bleeding There are few faint areas of irregular tracer presence in the proximal large bowel along the inferior margin of the liver which can be seen in an infectious process like acute diverticulitis Delayed imaging can be obtained at 24 hours, following tracer injection time, to look for any delayed intermittent bleeding in the lower GI tract. copyright 2010 [employer]- All Rights Reserved Assessment & Plan - Diagnosis (1) Lower GI bleeding Is this a current diagnosis for this admission?: Yes Plan: Will continues to follow with the general surgery We will check the CBC every 8 hours We will do the as needed blood transfusions (2) Anemia Qualifiers: Anemia type: other cause Other causes of anemia: acute posthemorrhagic Qualified Code(s): D62 - Acute posthemorrhagic anemia Is this a current diagnosis for this admission?: Yes (3) History of colon cancer, stage IV Is this a current diagnosis for this admission?: Yes (4) HLD (hyperlipidemia) Qualifiers: Hyperlipidemia type: unspecified Qualified Code(s): E78.5 - Hyperlipidemia, unspecified Is this a current diagnosis for this admission?: Yes (5) HTN (hypertension) Qualifiers: Hypertension type: essential hypertension Qualified Code(s): I10 - Essential (primary) hypertension Is this a current diagnosis for this admission?: Yes - Time Time Spent with patient: 15-24 minutes Medications reviewed and adjusted accordingly: Yes Anticipated discharge: Other Within: Other - Plan Summary Plan Summary: Keep patient n.p.o. or clear liquid diets follow with the surgery closely monitor the patient's CBC
[2018-02-08 16:03] LABS: HEMATOCRIT 26.8 % (36.0-47.0); HEMOGLOBIN 8.8 g/dL (12.0-15.5); MEAN CORPUSCULAR HEMOGLOBIN 30.4 pg (27.0-33.4); MEAN CORPUSCULAR VOLUME 92 fl (80-97); RED CELL DISTRIBUTION WIDTH 19.6 % (11.5-14.0); WHITE BLOOD COUNT 21.9 10^3/uL (4.0-10.5)
[2018-02-08 16:25] LABS: PLATELET COUNT 89 10^3/uL (150-450)
[2018-02-08] MEDS ORDERED: ONDANSETRON HCL INJ/PF 4 MG/2 ML SDV IV PRN (18:38)
--- NOTE | 2018-02-08 21:07 | PDOC PROGRESS REPORT ---
Subjective Progress Note for:: 02/07/18 - Acute recurrent epistaxis Subjective:: 72-year-old Afro-[place]inamese female who was seen and evaluated for acute recurrent epistaxis. ENT evaluation to include bilateral transnasal flexible endoscopy and left nasal silver nitrate cautery at multiple locations followed by twice daily nasal saline, bacitracin ointment, and Afrin use. The patient and nursing staff report no additional epistaxis. Reason For Visit: GI BLEED History of acute recurrent epistaxis. Physical Exam Vital Signs: Temp Pulse Resp BP Pulse Ox 98.2 F 79 16 149/62 H 100 02/08/18 15:52 02/08/18 19:00 02/08/18 15:52 02/08/18 15:52 02/08/18 15:52 Intake & Output 02/07/18 02/08/18 02/09/18 06:59 06:59 06:59 Intake Total 975 2498 518 Balance 975 2498 518 Weight 85.3 kg 85.3 kg General appearance: PRESENT: no acute distress, cooperative Head exam: PRESENT: normocephalic, other - No epistaxis or blood clots noted Neurological exam: PRESENT: alert, altered, awake, oriented to person, oriented to place, oriented to time, CN II-XII grossly intact Skin exam: PRESENT: warm Results Laboratory Results: 02/08/18 15:35 02/08/18 07:43 02/07/18 02/08/18 02/08/18 20:49 07:43 07:43 WBC 19.7 H RBC 3.11 L Hgb 9.5 L Hct 28.3 L MCV 91 D MCH 30.5 MCHC 33.5 RDW 20.2 H Plt Count 92 L Seg Neutrophils % 80.4 H Lymphocytes % 11.1 L Monocytes % 7.7 Eosinophils % 0.6 Basophils % 0.2 Absolute Neutrophils 15.8 H Absolute Lymphocytes 2.2 Absolute Monocytes 1.5 H Absolute Eosinophils 0.1 Absolute Basophils 0.0 Sodium 140.8 Potassium 3.9 Chloride 110 H Carbon Dioxide 25 Anion Gap 6 BUN 7 Creatinine 0.63 Est GFR ( Amer) > 60 Est GFR (Non-Af Amer) > 60 Glucose 164 H Calcium 9.3 Blood Type A POSITIVE Antibody Screen NEGATIVE 02/08/18 15:35 WBC 21.9 H RBC 2.90 L Hgb 8.8 L Hct 26.8 L MCV 92 MCH 30.4 MCHC 33.0 RDW 19.6 H Plt Count 89 L Seg Neutrophils % Lymphocytes % Monocytes % Eosinophils % Basophils % Absolute Neutrophils Absolute Lymphocytes Absolute Monocytes Absolute Eosinophils Absolute Basophils Sodium Potassium Chloride Carbon Dioxide Anion Gap BUN Creatinine Est GFR ( Amer) Est GFR (Non-Af Amer) Glucose Calcium Blood Type Antibody Screen 02/03/18 20:20 Blood Blood Culture - Final NO GROWTH IN 5 DAYS 02/03/18 02/03/18 02/04/18 13:30 13:30 01:07 Creatine Kinase 76 62 Troponin I < 0.012 02/04/18 02/04/18 02/04/18 01:07 06:59 06:59 Creatine Kinase 53 Troponin I < 0.012 < 0.012 Impressions: GI Bleed Scan Nuclear Medicine 02/06/18 00:00 IMPRESSION: There is no area of abnormal tracer excretion in the distribution of large bowel which increases in intensity over time or shows antegrade or retrograde movement in the large bowel to suggest active lower GI bleeding There are few faint areas of irregular tracer presence in the proximal large bowel along the inferior margin of the liver which can be seen in an infectious process like acute diverticulitis Delayed imaging can be obtained at 24 hours, following tracer injection time, to look for any delayed intermittent bleeding in the lower GI tract. copyright 2011 [employer]- All Rights Reserved Assessment & Plan - Diagnosis (1) Anemia Qualifiers: Anemia type: other cause Other causes of anemia: acute posthemorrhagic Qualified Code(s): D62 - Acute posthemorrhagic anemia Is this a current diagnosis for this admission?: Yes (2) Anterior epistaxis Is this a current diagnosis for this admission?: Yes - Time Time Spent with patient: Less than 15 minutes - Plan Summary Plan Summary: 72-year-old Afro-[place]inamese female who was seen and evaluated for acute recurrent epistaxis. ENT evaluation to include bilateral transnasal flexible endoscopy and left nasal silver nitrate cautery at multiple locations followed by twice daily nasal saline, bacitracin ointment, and Afrin use. The patient and nursing staff report no additional epistaxis. ENT is available as needed and the patient and nursing staff are aware that the patient will plan to follow-up with Dr. Mckeon in ENT at [address] [place] [address] , [place], [place] 4-6 weeks following the left nasal cautery.
[2018-02-08] MEDS: METOPROLOL SUCCINATE 50 MG TAB.SR.24H PO SCH (22:30)
[2018-02-08] MEDS: EZETIMIBE 10 MG TABLET PO SCH (22:30)
[2018-02-08 22:46] LABS: HEMATOCRIT 26.6 % (36.0-47.0); HEMOGLOBIN 8.7 g/dL (12.0-15.5); MEAN CORPUSCULAR HEMOGLOBIN 30.7 pg (27.0-33.4); MEAN CORPUSCULAR HGB CONC 32.9 g/dL (32.0-36.0); MEAN CORPUSCULAR VOLUME 93 fl (80-97); RED BLOOD COUNT 2.85 10^6/uL (3.72-5.28); RED CELL DISTRIBUTION WIDTH 20.5 % (11.5-14.0); WHITE BLOOD COUNT 19.5 10^3/uL (4.0-10.5)
[2018-02-08 22:59] LABS: PLATELET COUNT 87 10^3/uL (150-450)
[2018-02-09 06:06] LABS: HEMATOCRIT 25.1 % (36.0-47.0); HEMOGLOBIN 8.4 g/dL (12.0-15.5); MEAN CORPUSCULAR HGB CONC 33.5 g/dL (32.0-36.0); MEAN CORPUSCULAR VOLUME 93 fl (80-97); RED CELL DISTRIBUTION WIDTH 20.3 % (11.5-14.0); WHITE BLOOD COUNT 16.3 10^3/uL (4.0-10.5)
[2018-02-09 06:17] LABS: PLATELET COUNT 87 10^3/uL (150-450)
[2018-02-09] MEDS: LANSOPRAZOLE 15 MG TAB.RAP.DR PO SCH (06:27)
[2018-02-09] MEDS: HUM INSULIN NPH/REG INSULIN HM 100 UNIT/1 ML 3 ML SUBCUT SCH ×2 (08:45→18:18)
[2018-02-09] MEDS: LOSARTAN POTASSIUM 50 MG TABLET PO SCH (11:07)
[2018-02-09] MEDS: LORATADINE 10 MG TABLET PO SCH (11:07)
[2018-02-09] MEDS: SODIUM CHLORIDE NASAL SPRAY 44 ML NASL SCH ×2 (11:07→21:29)
[2018-02-09] MEDS: OXYMETAZOLINE HCL 0.05% NASAL SPRAY 15 ML BOTTLE NASL SCH ×2 (11:08→21:28)
[2018-02-09] MEDS: BACITRACIN ZINC OINTMENT 15 GM TOP SCH ×2 (11:10→21:28)
--- NOTE | 2018-02-09 11:56 | PDOC PROGRESS REPORT ---
Subjective Progress Note for:: 02/09/18 Subjective:: This patient still having some blood in the stools a couple of bowel movements seen by the general surgery today scheduled for colonoscopy on a Saturday and as needed blood transfusions Patient is denied any abdominal pain no nausea no no chest pain no short of breath Reason For Visit: GI BLEED Physical Exam Vital Signs: Temp Pulse Resp BP Pulse Ox 99.1 F 72 16 150/66 H 99 02/09/18 07:48 02/09/18 07:48 02/09/18 07:48 02/09/18 07:48 02/09/18 07:48 Intake & Output 02/08/18 02/09/18 02/10/18 06:59 06:59 06:59 Intake Total 2498 2684 Balance 2498 2684 Weight 85.3 kg General appearance: PRESENT: no acute distress Head exam: PRESENT: atraumatic, normocephalic Eye exam: PRESENT: PERRLA Ear exam: PRESENT: normal external ear exam Mouth exam: PRESENT: moist, tongue midline Neck exam: PRESENT: full ROM. ABSENT: carotid bruit, JVD, lymphadenopathy, thyromegaly Respiratory exam: PRESENT: clear to auscultation [place] Cardiovascular exam: PRESENT: +S1, +S2 Pulses: PRESENT: normal dorsalis pedis pul, +2 pedal pulses bilateral Vascular exam: PRESENT: normal capillary refill GI/Abdominal exam: PRESENT: normal bowel sounds Rectal exam: PRESENT: deferred Extremities exam: ABSENT: pedal edema Neurological exam: PRESENT: alert Psychiatric exam: PRESENT: appropriate affect, normal mood. ABSENT: homicidal ideation, suicidal ideation Skin exam: PRESENT: dry, intact, warm. ABSENT: cyanosis, rash Results Laboratory Results: 02/09/18 04:13 02/08/18 07:43 02/08/18 02/08/18 02/09/18 15:35 22:36 04:13 WBC 21.9 H 19.5 H 16.3 H RBC 2.90 L 2.85 L 2.70 L Hgb 8.8 L 8.7 L 8.4 L Hct 26.8 L 26.6 L 25.1 L MCV 92 93 93 MCH 30.4 30.7 31.0 MCHC 33.0 32.9 33.5 RDW 19.6 H 20.5 H 20.3 H Plt Count 89 L 87 L 87 L 02/03/18 22:00 Blood Blood Culture - Final NO GROWTH IN 5 DAYS 02/03/18 20:20 Blood Blood Culture - Final NO GROWTH IN 5 DAYS 02/03/18 02/03/18 02/04/18 13:30 13:30 01:07 Creatine Kinase 76 62 Troponin I < 0.012 02/04/18 02/04/18 02/04/18 01:07 06:59 06:59 Creatine Kinase 53 Troponin I < 0.012 < 0.012 Impressions: GI Bleed Scan Nuclear Medicine 02/06/18 00:00 IMPRESSION: There is no area of abnormal tracer excretion in the distribution of large bowel which increases in intensity over time or shows antegrade or retrograde movement in the large bowel to suggest active lower GI bleeding There are few faint areas of irregular tracer presence in the proximal large bowel along the inferior margin of the liver which can be seen in an infectious process like acute diverticulitis Delayed imaging can be obtained at 24 hours, following tracer injection time, to look for any delayed intermittent bleeding in the lower GI tract. copyright 2011 [employer]- All Rights Reserved Assessment & Plan - Diagnosis (1) Lower GI bleeding Is this a current diagnosis for this admission?: Yes Plan: Will continues to follow with the general surgery We will check the CBC every 8 hours We will do the as needed blood transfusions (2) Anemia Qualifiers: Anemia type: other cause Other causes of anemia: acute posthemorrhagic Qualified Code(s): D62 - Acute posthemorrhagic anemia Is this a current diagnosis for this admission?: Yes (3) History of colon cancer, stage IV Is this a current diagnosis for this admission?: Yes (4) HLD (hyperlipidemia) Qualifiers: Hyperlipidemia type: unspecified Qualified Code(s): E78.5 - Hyperlipidemia, unspecified Is this a current diagnosis for this admission?: Yes (5) HTN (hypertension) Qualifiers: Hypertension type: essential hypertension Qualified Code(s): I10 - Essential (primary) hypertension Is this a current diagnosis for this admission?: Yes - Time Time Spent with patient: 15-24 minutes Medications reviewed and adjusted accordingly: Yes Anticipated discharge: Other - Plan Summary Plan Summary: As per discussed with the surgery most likely up from the cancer GI bleed patient is scheduled for the endoscopy by Dr. Rossi tomorrow
--- NOTE | 2018-02-09 14:29 | PDOC PROGRESS REPORT ---
Subjective Progress Note for:: 02/09/18 Subjective:: no abdominal pains but has an episode of bloody BM this am. Reason For Visit: GI BLEED Physical Exam Vital Signs: Temp Pulse Resp BP Pulse Ox 98.4 F 77 16 135/66 H 100 02/09/18 11:15 02/09/18 11:15 02/09/18 11:15 02/09/18 11:15 02/09/18 11:15 Intake & Output 02/08/18 02/09/18 02/10/18 06:59 06:59 06:59 Intake Total 2498 2684 Balance 2498 2684 Weight 85.3 kg Exam: abdomen is soft and non tender. Results Laboratory Results: 02/09/18 04:13 02/08/18 07:43 02/08/18 02/08/18 02/09/18 15:35 22:36 04:13 WBC 21.9 H 19.5 H 16.3 H RBC 2.90 L 2.85 L 2.70 L Hgb 8.8 L 8.7 L 8.4 L Hct 26.8 L 26.6 L 25.1 L MCV 92 93 93 MCH 30.4 30.7 31.0 MCHC 33.0 32.9 33.5 RDW 19.6 H 20.5 H 20.3 H Plt Count 89 L 87 L 87 L 02/03/18 22:00 Blood Blood Culture - Final NO GROWTH IN 5 DAYS 02/03/18 20:20 Blood Blood Culture - Final NO GROWTH IN 5 DAYS 02/03/18 02/03/18 02/04/18 13:30 13:30 01:07 Creatine Kinase 76 62 Troponin I < 0.012 02/04/18 02/04/18 02/04/18 01:07 06:59 06:59 Creatine Kinase 53 Troponin I < 0.012 < 0.012 Impressions: GI Bleed Scan Nuclear Medicine 02/06/18 00:00 IMPRESSION: There is no area of abnormal tracer excretion in the distribution of large bowel which increases in intensity over time or shows antegrade or retrograde movement in the large bowel to suggest active lower GI bleeding There are few faint areas of irregular tracer presence in the proximal large bowel along the inferior margin of the liver which can be seen in an infectious process like acute diverticulitis Delayed imaging can be obtained at 24 hours, following tracer injection time, to look for any delayed intermittent bleeding in the lower GI tract. copyright 2010 [employer]- All Rights Reserved Assessment & Plan - Diagnosis (1) Anemia Qualifiers: Anemia type: other cause Other causes of anemia: acute posthemorrhagic Qualified Code(s): D62 - Acute posthemorrhagic anemia Is this a current diagnosis for this admission?: Yes (2) Anterior epistaxis Is this a current diagnosis for this admission?: Yes (3) Colon cancer Qualifiers: Colon location: unspecified part of colon Qualified Code(s): C18.9 - Malignant neoplasm of colon, unspecified Is this a current diagnosis for this admission?: Yes (4) History of colon cancer, stage IV Is this a current diagnosis for this admission?: Yes - Time Time Spent with patient: 15-24 minutes - Plan Summary Plan Summary: Will schedule colonoscopy tomorrow with Dr Rossi Will place on bowel prep today
[2018-02-09] MEDS: PEG 3350/NA SULF,BICARB,CL/KCL 4000 ML PO ONE ×2 (17:42→18:20)
[2018-02-09] MEDS: NORMAL SALINE 1000 ML 1,000 ML IV PRN (18:16)
[2018-02-09] MEDS: METOPROLOL SUCCINATE 50 MG TAB.SR.24H PO SCH (21:28)
[2018-02-09] MEDS: EZETIMIBE 10 MG TABLET PO SCH (21:28)
[2018-02-10] MEDS: LANSOPRAZOLE 15 MG TAB.RAP.DR PO SCH (05:16)
[2018-02-10] MEDS: GLUCAGON,HUMAN RECOMB 1 MG INJ IM PRN (07:53)
[2018-02-10] MEDS: HUM INSULIN NPH/REG INSULIN HM 100 UNIT/1 ML 3 ML SUBCUT SCH ×2 (08:15→19:01)
--- NOTE | 2018-02-10 08:15 | PDOC PROGRESS REPORT ---
Subjective Progress Note for:: 02/10/18 Subjective:: Patient is awaiting colonoscopy today. Remain NPO presently. GI bleeding is less as reported by patient and nursing staff. No difficulty with breathing. No chest pain. Reason For Visit: GI BLEED Physical Exam Vital Signs: Temp Pulse Resp BP Pulse Ox 98.2 F 76 17 146/65 H 100 02/10/18 08:00 02/10/18 08:00 02/10/18 08:00 02/10/18 08:00 02/10/18 08:00 Intake & Output 02/09/18 02/10/18 02/11/18 06:59 06:59 06:59 Intake Total 2684 2699 Output Total 975 Balance 2684 1724 Weight 79.3 kg Physical Exam: General appearance: PRESENT: no acute distress Head exam: PRESENT: atraumatic, normocephalic Eye exam: PRESENT: conjunctiva pink, EOMI, PERRLA. ABSENT: pallor, scleral icterus Ear exam: PRESENT: normal external ear exam Mouth exam: PRESENT: moist Teeth exam: PRESENT: poor dentition Respiratory exam: PRESENT: clear to auscultation china, decreased breath sounds - at lung bases Cardiovascular exam: PRESENT: RRR. ABSENT: diastolic murmur, rubs, systolic murmur GI/Abdominal exam: PRESENT: normal bowel sounds, soft. ABSENT: distended, guarding, mass, organomegaly, rebound, tenderness Extremities exam: ABSENT: pedal edema Musculoskeletal exam: PRESENT: deformity - related to multiple joints invo lvement with arthritis Neurological exam: PRESENT: alert, awake, oriented to person, oriented to place, oriented to time, oriented to situation, CN II-XII grossly intact. ABSENT: motor sensory deficit Psychiatric exam: PRESENT: appropriate affect, normal mood. ABSENT: homicidal ideation, suicidal ideation Skin exam: PRESENT: dry, warm Results Laboratory Results: 02/09/18 04:13 02/08/18 07:43 02/03/18 02/03/18 02/04/18 13:30 13:30 01:07 Creatine Kinase 76 62 Troponin I < 0.012 02/04/18 02/04/18 02/04/18 01:07 06:59 06:59 Creatine Kinase 53 Troponin I < 0.012 < 0.012 Impressions: GI Bleed Scan Nuclear Medicine 02/06/18 00:00 IMPRESSION: There is no area of abnormal tracer excretion in the distribution of large bowel which increases in intensity over time or shows antegrade or retrograde movement in the large bowel to suggest active lower GI bleeding There are few faint areas of irregular tracer presence in the proximal large bowel along the inferior margin of the liver which can be seen in an infectious process like acute diverticulitis Delayed imaging can be obtained at 24 hours, following tracer injection time, to look for any delayed intermittent bleeding in the lower GI tract. copyright 2010 [employer]- All Rights Reserved Assessment & Plan - Diagnosis (1) Epistaxis not due to trauma Is this a current diagnosis for this admission?: Yes (2) Lower GI bleeding Is this a current diagnosis for this admission?: Yes (4) Type 2 diabetes mellitus Qualifiers: Diabetes mellitus half-way insulin use: with manager long term care use Diabetes mellitus complication status: with neurologic complications Diabetes mellitus complication detail: with polyneuropathy Qualified Code(s): E11.42 - Type 2 diabetes mellitus with diabetic polyneuropathy; Z79.4 - manager long term care (current) use of insulin Is this a current diagnosis for this admission?: Yes (5) HTN (hypertension) Qualifiers: Hypertension type: essential hypertension Qualified Code(s): I10 - Essential (primary) hypertension Is this a current diagnosis for this admission?: Yes (6) HLD (hyperlipidemia) Qualifiers: Hyperlipidemia type: unspecified Qualified Code(s): E78.5 - Hyperlipidemia, unspecified Is this a current diagnosis for this admission?: Yes - Time Time Spent with patient: 25-34 minutes Medications reviewed and adjusted accordingly: Yes Anticipated discharge: Home with Homehealth Within: Other - Inpatient Certification Based on my medical assessment, after consideration of the patient's comorbidities, presenting symptoms, or acuity I expect that the services needed warrant INPATIENT care.: Yes I certify that my determination is in accordance with my understanding of Medicare's requirements for reasonable and necessary INPATIENT services [42 CFR 412.3e].: Yes Medical Necessity: Need Close Monitoring Due to Risk of Patient Decompensation, Need For IV Fluids, Need For Continuous Telemetry Monitoring, Need for Surgery, Risk of Complication if Not Cared For in Hospital Post Hospital Care: D/C Director Erp Documentation - Plan Summary Plan Summary: I discussed case with Dr. Rossi, surgicalist, on duty today. Plan is for colonoscopy with subsequent plan regarding ascending colon cancer and abnormality on the bleeding scan. Continue all other current medication management.
--- NOTE | 2018-02-10 09:25 | PDOC PROGRESS REPORT ---
Subjective Progress Note for:: 02/10/18 Subjective:: Patient anxious about undergoing colonoscopy, and more anxious to undergo an operation. She is by herself. She is continued to have bloody bowel movements, thick maroon colored; she did complete the majority of her second prescription of PEG solution. Reason For Visit: GI BLEED Physical Exam Vital Signs: Temp Pulse Resp BP Pulse Ox 98.2 F 76 17 146/65 H 100 02/10/18 08:00 02/10/18 08:00 02/10/18 08:00 02/10/18 08:00 02/10/18 08:00 Intake & Output 02/09/18 02/10/18 02/11/18 06:59 06:59 06:59 Intake Total 2684 2699 Output Total 975 Balance 2684 1724 Weight 79.3 kg General appearance: PRESENT: no acute distress, other - Walking around in the hospital room GI/Abdominal exam: PRESENT: other - Soft nontender no peritoneal signs no rigidity Results Laboratory Results: 02/09/18 04:13 02/08/18 07:43 02/03/18 02/03/18 02/04/18 13:30 13:30 01:07 Creatine Kinase 76 62 Troponin I < 0.012 02/04/18 02/04/18 02/04/18 01:07 06:59 06:59 Creatine Kinase 53 Troponin I < 0.012 < 0.012 Impressions: GI Bleed Scan Nuclear Medicine 02/06/18 00:00 IMPRESSION: There is no area of abnormal tracer excretion in the distribution of large bowel which increases in intensity over time or shows antegrade or retrograde movement in the large bowel to suggest active lower GI bleeding There are few faint areas of irregular tracer presence in the proximal large bowel along the inferior margin of the liver which can be seen in an infectious process like acute diverticulitis Delayed imaging can be obtained at 24 hours, following tracer injection time, to look for any delayed intermittent bleeding in the lower GI tract. copyright 2010 [employer]- All Rights Reserved Assessment & Plan - Diagnosis (1) Anterior epistaxis Is this a current diagnosis for this admission?: Yes (2) Lower GI bleeding Is this a current diagnosis for this admission?: Yes Plan: Impression: Persisting lower GI bleed likely from known right colonic malignancy, status post 4units packed red cells and 2 units FFP this hospita lization. Recommendations: 1. Patient's coagulation parameters show a slight increase in PTT; platelets hovering in the mid to upper 80s. Hemoglobin stable at 8.5 after 2 unit transfusion this weekend. SHe is hemodynamically stable. 2. Nonetheless patient continues to bleed likely from the right colon tumor, despite optimal medical management, she will require at least a right hemicolectomy. I have suggested colonoscopy to ensure the left colon is free of significant pathologic disease. I explained this to her and I believe she understands. She is going to get in touch with her family to discuss plans for today. 3. I explained the risks of a colonoscopy including bleeding, bowel injury. I believe she understands and agrees to proceed.
[2018-02-10] MEDS ORDERED: ONDANSETRON HCL INJ/PF 4 MG/2 ML SDV ONE ×2 (09:53→14:19)
[2018-02-10] MEDS ORDERED: DIPHENHYDRAMINE HCL 50 MG/ML VIAL ONE (09:53)
[2018-02-10] MEDS ORDERED: NALOXONE HCL INJ/PF 0.4 MG/1 ML SDV ONE (09:54)
[2018-02-10] MEDS ORDERED: GLUCAGON,HUMAN RECOMB 1 MG INJ ONE (09:54)
[2018-02-10] MEDS ORDERED: EPINEPHRINE INJ 1 MG/10 ML DISP.SYRIN ONE (09:54)
[2018-02-10] MEDS ORDERED: FLUMAZENIL INJ 0.5 MG/5 ML VIAL ONE (09:54)
[2018-02-10] MEDS: MIDAZOLAM 2 MG/2 ML INJ ONE ×4 (10:29→11:03)
[2018-02-10] MEDS: FENTANYL CITRATE INJ/PF 100 MCG/2 ML AMPUL ONE ×3 (10:31→10:45)
[2018-02-10] MEDS ORDERED: AMPICILLIN SOD/SULBACTAM 3 GM VIAL IV ONE (11:24)
[2018-02-10] MEDS ORDERED: MIDAZOLAM 2 MG/2 ML INJ ONE (11:29)
[2018-02-10] MEDS ORDERED: FENTANYL CITRATE INJ/PF 250 MCG/5 ML AMPULE ONE (11:29)
[2018-02-10] MEDS ORDERED: HYDROMORPHONE HCL INJ/PF 2 MG/ML AMPULE ONE (11:29)
[2018-02-10] MEDS ORDERED: PROPOFOL INJ 200 MG/20 ML VIAL IV ONE (11:30)
[2018-02-10] MEDS ORDERED: ACETAMINOPHEN 1,000 MG/100 ML RTUPB IV ONE (11:30)
--- NOTE | 2018-02-10 11:33 | Operative Report ---
Operative Report DATE OF SURGERY: 02/10/18 PREOPERATIVE DIAGNOSIS: Acute gastrointestinal bleeding from the right colon POSTOPERATIVE DIAGNOSIS: Same with active bleeding from the known adenocarcinoma of the ascending colon ; scattered diverticulosis OPERATION: 1. Total colonoscopy to cecum. 2. Photodocumentation. SURGEON: DARREN WHITMORE ANESTHESIA: Moderate Sedation TISSUE REMOVED OR ALTERED: None COMPLICATIONS: None ESTIMATED BLOOD LOSS: Difficult to estimate; 200 cc INTRAOPERATIVE FINDINGS: See below PROCEDURE: Patient was taken from the fourth floor to the endoscopy suite where monitoring devices were attached. Surgical timeout was conducted. Patient is placed on left lateral cubitus position. Rectal exam revealed no palpable pathology. Flexible pediatric scope was advanced approximately 60 cm through the anorectal canal of the left colon. Unfortunately the scope was not performed satisfactorily due to malfunctioning insufflation. The scope was withdrawn and a replacement scope was reinserted into the anal rectal canal, providing adequate visualization all the way to the cecum. This was a limited study due to the profound amount of clot, confined blood, and active bleeding from the primary source which was the ascending colon. In the ascending colon just distal to the cecum was an irregular tumor occupying a portion of the wall of the bowel. It was not obstructive. There were several active clot sitting on different portions of the tumor. Photos were taken. The scope was withdrawn through the length of the colon where multiple diverticulum were identified. It was difficult to ascertain whether there was in fact bleeding from any of the other sites of the colon, specifically scattered diverticula. No other tumor identified however. Certainly the majority of the active bleeding clot was coming from the right colon tumor. Scope was withdrawn with the patient's anus. She tolerated procedure well. The remainder of the colon showed no evidence of stricture or gross tumor. Impression: Active bleeding from right colon tumor in need of surgical intervention Conditions: 1. Proceed with exploratory laparotomy, right colectomy possible subtotal colectomy, open, today. 2. Prepared blood bank accordingly for blood transfusions and FFP; will place central line in operating room. 3. We will convey findings and emergent plan for surgery to patient when she awakens, as well as next of kin.
[2018-02-10] MEDS ORDERED: AMPICILLIN SODIUM/SULBACTAM NA 3 GM in NORMAL SALINE 100 ML IV PRN (11:48)
[2018-02-10] MEDS ORDERED: BUPIVACAINE HCL 0.25 % INJ/PF (2.5 MG/1 ML) 30 ML VIAL ONE (12:10)
[2018-02-10 12:29] LABS: HEMATOCRIT 23.6 % (36.0-47.0); MEAN CORPUSCULAR HEMOGLOBIN 30.6 pg (27.0-33.4); MEAN CORPUSCULAR HGB CONC 32.3 g/dL (32.0-36.0); MEAN CORPUSCULAR VOLUME 95 fl (80-97); PLATELET COUNT 110 10^3/uL (150-450); RED BLOOD COUNT 2.49 10^6/uL (3.72-5.28); RED CELL DISTRIBUTION WIDTH 20.4 % (11.5-14.0); WHITE BLOOD COUNT 18.3 10^3/uL (4.0-10.5)
[2018-02-10 12:32] LABS: HEMOGLOBIN 7.6 g/dL (12.0-15.5)
[2018-02-10] MEDS ORDERED: NEOSTIGMINE METHYLSULFATE 10 MG/10 ML VIAL ONE (14:19)
[2018-02-10] MEDS ORDERED: ROCURONIUM BROMIDE INJ 50 MG/5 ML VIAL IV ONE (14:19)
[2018-02-10] MEDS ORDERED: GLYCOPYRROLATE 1 MG/5 ML SYRINGE ONE (14:19)
[2018-02-10] MEDS ORDERED: SUCCINYLCHOLINE CHLORIDE INJ 200 MG/10 ML VIAL ONE (14:19)
[2018-02-10] MEDS ORDERED: DEXAMETHASONE SOD PHOSPHATE INJ 4 MG/1 ML VIAL ONE (14:19)
[2018-02-10] MEDS ORDERED: FENTANYL CITRATE INJ/PF 100 MCG/2 ML AMPUL IV PRN ×3 (14:26)
[2018-02-10] MEDS ORDERED: MEPERIDINE HCL/PF INJ 25 MG/1 ML DISP.SYRIN IV PRN (14:26)
[2018-02-10] MEDS ORDERED: PROMETHAZINE HCL INJ 25 MG/1 ML VIAL IV PRN (14:26)
[2018-02-10] MEDS ORDERED: DIPHENHYDRAMINE HCL 50 MG/ML VIAL IV PRN (14:26)
[2018-02-10] MEDS ORDERED: BUPIVACAINE INJ/PF LIPOSOME/PF 266 MG/20 ML SDV ONE (14:32)
--- NOTE | 2018-02-10 16:32 | Operative Report ---
Nonrecallable Operative Report DATE OF SURGERY: 02/10/18 PREOPERATIVE DIAGNOSIS: Acute gastrointestinal hemorrhage from right colon adenocarcinoma POSTOPERATIVE DIAGNOSIS: Same with intra-abdominal adhesions and residual metastatic colon carcinoma to the liver, and mesentery OPERATION: 1. Exploratory laparotomy. 2. Open right hemicolectomy with stapled ileo-transverse colonic anastomosis. 3. Placement of drain in the pelvis. 4. Lysis of adhesions SURGEON: DARREN ROSSI 1ST CONSTRUCTION EQUIPMENT MECHANIC: KAITLYNN MONZON ANESTHESIA: GA TISSUE REMOVED OR ALTERED: Right: COMPLICATIONS: None ESTIMATED BLOOD LOSS: 250 cc INTRAOPERATIVE FINDINGS: See below PROCEDURE: The patient was taken to the preop holding area to the main operating room and general anesthesia was induced. Hernandez catheter was inserted with return of clear urine. Additional intravenous access was established. The arms were abducted legs tucked in the supine position and the abdomen prepped and draped sterile fashion. Surgical plan surgical timeout were conducted. The abdomen was opened through a standard midline incision above and below the umbilicus. There was significant scar tissue from previous pelvic laparotomy likely related to hysterectomy. There were Ethibond and Prolene sutures removed as encountered. The peritoneal cavity was sharply entered, and we immediately encountered dense diffuse adhesions. The majority of these were taken down from the omentum to the anterior abdominal wall using a combination of sharp and blunt dissection. This took approximately 22 minutes. Once the omentum was freed up, we are able to get the Bookwalter retractor into the abdominal cavity and provide exposure. Findings are significant for diffuse known metastatic disease to the right lobe of the liver with facet as well as deeper parenchymal involvement based on visual and manual inspection. Several small spots throughout the small bowel mesentery suggestive of metastatic deposits. In the right mesocolon there were thick firm lymph nodes consistent with metastatic disease. Once we got adequate exposure to the free peritoneal space, we proceeded to perform the open right hemicolectomy. The ileocolic tissue is tethered to the posterior and right pelvic wall and these adhesions were taken down between a combination of sharp, LigaSure dissection. The white line of Toldt was opened and the entire peritoneal reflection opened up. The right colon was mobilized off the retroperitoneum. A suitable site for transection of the transverse colon was chosen to the right of the middle colic vessels. A portion of the greater omentum was opened using the LigaSure device. We now had the terminal ileum mobilized up out of the pelvis. The terminal ileum was divided with a single firing of the ENMANUEL 55 stapler. The transverse colon was now divided at the point of clearing of the greater omentum. It was divided with the ENMANUEL 50 stapler. Because of the evidence of no metastatic disease, I felt that an expeditious resection of the right mesocolon was appropriate and so this was affected using a combination of LigaSure and 0 Vicryl ties. The specimen was passed off the table, and at the conclusion the operation inspected by Dr. Rossi and the medical student. It was opened transversely throughout its length, and the tumor in the cecum appreciated. At this point we brought the terminal ileum adjacent to the mid transverse colon to affect a [id number], functional and staple anastomosis. The antimesenteric sides of the bowel and colon were brought together with 3-0 Vicryl suture. A lithotomy and an enterotomy were made, and a single firing of the ENMANUEL 55 stapler in effect created the anastomosis. The common openings were then closed with a single firing of the T a 60 stapler. This affected the anastomosis, bringing the 2 signs of bowel together without tension. Blood supply was felt to be brisk. There was never any doubt about the viability of the most tissue. The mesenteric defect was closed with a running 3-0 Vicryl suture. At this point the operation there was some oozing from the retroperitoneal surfaces; any mechanical bleeding was negligible and handled with electrocautery. The patient remained hemodynamically stable. During the course of the case the patient did receive 2 units of packed cells and 2 units FFP. We elected to place a drain, large Arturo, the right lower quadrant and this was secured to the skin with 2-0 Prolene suture. At this point we felt the operation was complete. The nasogastric tube had been removed. No evidence of small bowel obstruction. Sponge and needle counts are correct. The midline incision was closed with 2 double-stranded #1 PDS sutures. 20 cc of full-strength Exparel was injected into the subcutaneous tissue. Abdominal binder was placed. Patient tolerated procedure well, extubated, taken recovery in stable condition.
--- NOTE | 2018-02-10 16:34 | EKG REPORT ---
SEVERITY:- ABNORMAL ECG - SINUS RHYTHM LEFT AXIS DEVIATION PROBABLE LEFT VENTRICULAR HYPERTROPHY : Confirmed by: Cynthia Valencia MD 10-Feb-2018 16:33:44
[2018-02-10 17:05] LABS: HEMATOCRIT 30.8 % (36.0-47.0); MEAN CORPUSCULAR HEMOGLOBIN 30.8 pg (27.0-33.4); MEAN CORPUSCULAR HGB CONC 33.4 g/dL (32.0-36.0); MEAN CORPUSCULAR VOLUME 92 fl (80-97); RED BLOOD COUNT 3.33 10^6/uL (3.72-5.28); RED CELL DISTRIBUTION WIDTH 17.6 % (11.5-14.0); WHITE BLOOD COUNT 29.1 10^3/uL (4.0-10.5)
[2018-02-10 17:07] LABS: HEMOGLOBIN 10.3 g/dL (12.0-15.5); PLATELET COUNT 98 10^3/uL (150-450)
[2018-02-10 17:18] LABS: INTERNATIONAL RATION (INR) 1.05; PROTHROMBIN TIME 14.3 SEC (11.4-15.4)
[2018-02-10 17:19] LABS: PARTIAL THROMBOPLASTIN TIME 30.4 SEC (23.5-35.8)
[2018-02-10] MEDS: LORATADINE 10 MG TABLET PO SCH (19:00)
[2018-02-10] MEDS: OXYMETAZOLINE HCL 0.05% NASAL SPRAY 15 ML BOTTLE NASL SCH (19:00)
[2018-02-10] MEDS: BACITRACIN ZINC OINTMENT 15 GM TOP SCH (19:00)
[2018-02-10] MEDS: SODIUM CHLORIDE NASAL SPRAY 44 ML NASL SCH (19:01)
[2018-02-10] MEDS: LOSARTAN POTASSIUM 50 MG TABLET PO SCH (19:01)
[2018-02-10] MEDS ORDERED: ONDANSETRON HCL INJ/PF 4 MG/2 ML SDV IV PRN (21:03)
[2018-02-10] MEDS ORDERED: KETOROLAC TROMETHAMINE INJ/PF 30 MG/1 ML SDV IV PRN (21:03)
[2018-02-10] MEDS: MORPHINE SULFATE 10 MG/ML INJ IV PRN (22:09)
[2018-02-10] MEDS: EZETIMIBE 10 MG TABLET PO SCH (22:21)
[2018-02-10] MEDS: METOPROLOL SUCCINATE 50 MG TAB.SR.24H PO SCH (22:22)
[2018-02-11] MEDS: OXYMETAZOLINE HCL 0.05% NASAL SPRAY 15 ML BOTTLE NASL SCH ×3 (00:05→21:23)
[2018-02-11] MEDS: BACITRACIN ZINC OINTMENT 15 GM TOP SCH ×3 (00:07→21:24)
[2018-02-11] MEDS: SODIUM CHLORIDE NASAL SPRAY 44 ML NASL SCH ×3 (00:08→21:24)
[2018-02-11] MEDS: ACETAMINOPHEN INJ/PF 1000 MG/100 ML SDV IV SCH ×5 (00:53→22:59)
[2018-02-11] MEDS: MORPHINE SULFATE 10 MG/ML INJ IV PRN ×2 (05:04→23:12)
[2018-02-11] MEDS: LANSOPRAZOLE 15 MG TAB.RAP.DR PO SCH (05:42)
[2018-02-11 05:56] LABS: HEMATOCRIT 28.6 % (36.0-47.0); HEMOGLOBIN 9.7 g/dL (12.0-15.5); MEAN CORPUSCULAR HEMOGLOBIN 31.1 pg (27.0-33.4); MEAN CORPUSCULAR HGB CONC 33.8 g/dL (32.0-36.0); MEAN CORPUSCULAR VOLUME 92 fl (80-97); PLATELET COUNT 127 10^3/uL (150-450); RED BLOOD COUNT 3.11 10^6/uL (3.72-5.28); RED CELL DISTRIBUTION WIDTH 17.5 % (11.5-14.0); WHITE BLOOD COUNT 28.5 10^3/uL (4.0-10.5)
[2018-02-11 07:12] LABS: ABSOLUTE LYMPHOCYTES# (MANUAL) 1.1 10^3/uL (0.5-4.7); ABSOLUTE MONOCYTES # (MANUAL) 0.6 10^3/uL (0.1-1.4); ABSOLUTE NEUTROPHILS# (MANUAL) 26.8 10^3/uL (1.7-8.2); BASOPHILS % (MANUAL) 0 % (0-2); EOSINOPHILS % (MANUAL) 0 % (0-6); LYMPHOCYTES % (MANUAL) 4 % (13-45); MONOCYTES % (MANUAL) 2 % (3-13); SEGMENTED NEUTROPHILS % (MAN) 94 % (42-78); TOTAL CELLS COUNTED 100
[2018-02-11 07:19] LABS: ANISOCYTOSIS 1+; POIKILOCYTOSIS 1+; TOXIC GRANULATION 1+; TOXIC VACUOLATION PRESENT
[2018-02-11 07:20] LABS: OVALOCYTES 1+; PLATELET COMMENT ADEQUATE; SCHISTOCYTES 1+; TEAR DROP CELLS SLIGHT
[2018-02-11] MEDS: HUM INSULIN NPH/REG INSULIN HM 100 UNIT/1 ML 3 ML SUBCUT SCH ×2 (08:58→18:35)
--- NOTE | 2018-02-11 10:53 | PDOC PROGRESS REPORT ---
Subjective Progress Note for:: 02/11/18 Subjective:: Patient day 1 post Open right hemicolectomy with stapled ileo-transverse colonic anastomosis intervention for her recurrent ascending colon metastatic adenocarcinoma. She is lucid and appropriate in responses. She denied any significant abdominal pain. no chest pain or difficulty with breathing. Reason For Visit: GI BLEED Physical Exam Vital Signs: Temp Pulse Resp BP Pulse Ox 98.8 F 81 19 164/67 H 99 02/11/18 08:45 02/11/18 08:45 02/11/18 08:45 02/11/18 08:45 02/11/18 08:45 Intake & Output 02/10/18 02/11/18 02/12/18 06:59 06:59 06:59 Intake Total 2699 6535 Output Total 975 5416 Balance 1724 1119 Weight 79.3 kg General appearance: PRESENT: no acute distress, obese Head exam: PRESENT: atraumatic, normocephalic Eye exam: PRESENT: conjunctiva pink, EOMI, PERRLA. ABSENT: scleral icterus Ear exam: PRESENT: normal external ear exam Mouth exam: PRESENT: moist Teeth exam: PRESENT: poor dentation Respiratory exam: PRESENT: clear to auscultation [place], decreased breath sounds - at lung bases Cardiovascular exam: PRESENT: RRR. ABSENT: diastolic murmur, rubs, systolic murmur GI/Abdominal exam: PRESENT: hypoactive bowel sounds Gentrourinary exam: PRESENT: indwelling catheter Neurological exam: PRESENT: alert, awake, oriented to person, oriented to place, oriented to time, oriented to situation, CN II-XII grossly intact. ABSENT: motor sensory deficit Psychiatric exam: PRESENT: appropriate affect, normal mood. ABSENT: homicidal ideation, suicidal ideation Skin exam: PRESENT: dry, warm, other - surgical site dressing okay with abdominal band in use. Results Laboratory Results: 02/11/18 05:08 02/08/18 07:43 02/07/18 02/10/18 02/10/18 20:49 12:12 16:24 WBC 18.3 H 29.1 H RBC 2.49 L 3.33 L Hgb 7.6 L 10.3 L D Hct 23.6 L 30.8 L MCV 95 92 MCH 30.6 30.8 MCHC 32.3 33.4 RDW 20.4 H 17.6 H Plt Count 110 L 98 L Seg Neutrophils % Lymphocytes % Monocytes % Eosinophils % Basophils % Absolute Neutrophils Absolute Lymphocytes Absolute Monocytes Absolute Eosinophils Absolute Basophils Blood Type A POSITIVE Antibody Screen NEGATIVE 02/11/18 05:08 WBC 28.5 H RBC 3.11 L Hgb 9.7 L Hct 28.6 L MCV 92 MCH 31.1 MCHC 33.8 RDW 17.5 H Plt Count 127 L Seg Neutrophils % Not Reportable Lymphocytes % Not Reportable Monocytes % Not Reportable Eosinophils % Not Reportable Basophils % Not Reportable Absolute Neutrophils Not Reportable Absolute Lymphocytes Not Reportable Absolute Monocytes Not Reportable Absolute Eosinophils Not Reportable Absolute Basophils Not Reportable Blood Type Antibody Screen 02/03/18 02/03/18 02/04/18 13:30 13:30 01:07 Creatine Kinase 76 62 Troponin I < 0.012 02/04/18 02/04/18 02/04/18 01:07 06:59 06:59 Creatine Kinase 53 Troponin I < 0.012 < 0.012 Impressions: GI Bleed Scan Nuclear Medicine 02/06/18 00:00 IMPRESSION: There is no area of abnormal tracer excretion in the distribution of large bowel which increases in intensity over time or shows antegrade or retrograde movement in the large bowel to suggest active lower GI bleeding There are few faint areas of irregular tracer presence in the proximal large bowel along the inferior margin of the liver which can be seen in an infectious process like acute diverticulitis Delayed imaging can be obtained at 24 hours, following tracer injection time, to look for any delayed intermittent bleeding in the lower GI tract. copyright 2011 [employer]- All Rights Reserved Assessment & Plan - Diagnosis (1) Epistaxis not due to trauma Is this a current diagnosis for this admission?: Yes (2) Lower GI bleeding Is this a current diagnosis for this admission?: Yes (4) Type 2 diabetes mellitus Qualifiers: Diabetes mellitus moth exterminator insulin use: with moth exterminator use Diabetes mellitus complication status: with neurologic complications Diabetes mellitus complication detail: with polyneuropathy Qualified Code(s): E11.42 - Type 2 diabetes mellitus with diabetic polyneuropathy; Z79.4 - exterminator (current) use of insulin Is this a current diagnosis for this admission?: Yes (5) HTN (hypertension) Qualifiers: Hypertension type: essential hypertension Qualified Code(s): I10 - Essential (primary) hypertension Is this a current diagnosis for this admission?: Yes (6) HLD (hyperlipidemia) Qualifiers: Hyperlipidemia type: unspecified Qualified Code(s): E78.5 - Hyperlipidemia, unspecified Is this a current diagnosis for this admission?: Yes - Time Time Spent with patient: 25-34 minutes Medications reviewed and adjusted accordingly: Yes Anticipated discharge: Home with Homehealth Within: Other - Inpatient Certification Based on my medical assessment, after consideration of the patient's comorbidities, presenting symptoms, or acuity I expect that the services needed warrant INPATIENT care.: Yes I certify that my determination is in accordance with my understanding of Medicare's requirements for reasonable and necessary INPATIENT services [42 CFR 412.3e].: Yes Medical Necessity: Need Close Monitoring Due to Risk of Patient Decompensation, Need For IV Fluids, Need For Continuous Telemetry Monitoring, Need for Surgery, Risk of Complication if Not Cared For in Hospital Post Hospital Care: D/C Evp Managing Director Documentation - Plan Summary Plan Summary: I discussed case with Dr. Rossi, surgeon on the case, patient can start on cl ear liquid diet today. We will attempt bed to chair if tolerated. Consider d/c gross cath if patient achieve adequate mobility today. Continue all current medication management.
--- NOTE | 2018-02-11 11:16 | PDOC PROGRESS REPORT ---
Subjective Subjective:: Patient now 12 hours status post exploratory laparotomy, right hemicolectomy, open, for acute uncontrolled bleeding from the right colonic tumor. She is done well overnight has adequate pain control hemodynamically stable moderate amount of serosanguineous drainage from her Ata-Gandara drain in adequate urine Reason For Visit: GI BLEED Physical Exam Vital Signs: Temp Pulse Resp BP Pulse Ox 98.8 F 81 19 164/67 H 99 02/11/18 08:45 02/11/18 08:45 02/11/18 08:45 02/11/18 08:45 02/11/18 08:45 Intake & Output 02/10/18 02/11/18 02/12/18 06:59 06:59 06:59 Intake Total 2699 6535 Output Total 975 5416 Balance 1724 1119 Weight 79.3 kg General appearance: PRESENT: no acute distress GI/Abdominal exam: PRESENT: other - Abdominal binder in place; decreasing serous drainage from the DELROY drain. Appropriate tenderness. Results Laboratory Results: 02/11/18 05:08 02/08/18 07:43 02/07/18 02/10/18 02/10/18 20:49 12:12 16:24 WBC 18.3 H 29.1 H RBC 2.49 L 3.33 L Hgb 7.6 L 10.3 L D Hct 23.6 L 30.8 L MCV 95 92 MCH 30.6 30.8 MCHC 32.3 33.4 RDW 20.4 H 17.6 H Plt Count 110 L 98 L Seg Neutrophils % Lymphocytes % Monocytes % Eosinophils % Basophils % Absolute Neutrophils Absolute Lymphocytes Absolute Monocytes Absolute Eosinophils Absolute Basophils Blood Type A POSITIVE Antibody Screen NEGATIVE 02/11/18 05:08 WBC 28.5 H RBC 3.11 L Hgb 9.7 L Hct 28.6 L MCV 92 MCH 31.1 MCHC 33.8 RDW 17.5 H Plt Count 127 L Seg Neutrophils % Not Reportable Lymphocytes % Not Reportable Monocytes % Not Reportable Eosinophils % Not Reportable Basophils % Not Reportable Absolute Neutrophils Not Reportable Absolute Lymphocytes Not Reportable Absolute Monocytes Not Reportable Absolute Eosinophils Not Reportable Absolute Basophils Not Reportable Blood Type Antibody Screen 02/03/18 02/03/18 02/04/18 13:30 13:30 01:07 Creatine Kinase 76 62 Troponin I < 0.012 02/04/18 02/04/1802/04/18 01:07 06:59 06:59 Creatine Kinase 53 Troponin I < 0.012 < 0.012 Impressions: GI Bleed Scan Nuclear Medicine 02/06/18 00:00 IMPRESSION: There is no area of abnormal tracer excretion in the distribution of large bowel which increases in intensity over time or shows antegrade or retrograde movement in the large bowel to suggest active lower GI bleeding There are few faint areas of irregular tracer presence in the proximal large bowel along the inferior margin of the liver which can be seen in an infectious process like acute diverticulitis Delayed imaging can be obtained at 24 hours, following tracer injection time, to look for any delayed intermittent bleeding in the lower GI tract. copyright 2010 [employer]- All Rights Reserved Assessment & Plan - Diagnosis (1) Anterior epistaxis Is this a current diagnosis for this admission?: Yes (2) Lower GI bleeding Is this a current diagnosis for this admission?: Yes Plan: Impression: Status post open right hemicolectomy, doing well, no complications, appropriate satisfactory progress thus far. Recommendations: 1. Out of bed to chair 2. Consider Hernandez catheter removal later today 3. Surgical sips of clear liquids only. 4. Leave pelvic drain in place.
[2018-02-11] MEDS: LOSARTAN POTASSIUM 50 MG TABLET PO SCH (12:49)
[2018-02-11] MEDS: LORATADINE 10 MG TABLET PO SCH (12:49)
[2018-02-11] MEDS: METOPROLOL SUCCINATE 50 MG TAB.SR.24H PO SCH (21:22)
[2018-02-11] MEDS: INSULIN LISPRO 100 UNIT/ML 3 ML VIAL SUBCUT PRN (21:23)
[2018-02-11] MEDS: EZETIMIBE 10 MG TABLET PO SCH (21:23)
[2018-02-12] MEDS: MORPHINE SULFATE 10 MG/ML INJ IV PRN ×3 (02:12→21:47)
[2018-02-12] MEDS: ACETAMINOPHEN INJ/PF 1000 MG/100 ML SDV IV SCH ×3 (05:09→18:08)
[2018-02-12] MEDS: LANSOPRAZOLE 15 MG TAB.RAP.DR PO SCH (05:09)
[2018-02-12] MEDS: NORMAL SALINE 1000 ML 1,000 ML IV PRN (07:16)
--- NOTE | 2018-02-12 08:01 | PDOC PROGRESS REPORT ---
Subjective Progress Note for:: 02/12/18 Subjective:: Tolerating clear liquid diet. No bowel movement or flatus so far. No nausea or vomiting. No fever or chills. No chest pain or difficulty with breathing. Reason For Visit: GI BLEED Physical Exam Vital Signs: Temp Pulse Resp BP Pulse Ox 97.9 F 74 19 160/68 H 100 02/12/18 04:40 02/12/18 07:00 02/11/18 16:00 02/12/18 04:40 02/12/18 04:40 Intake & Output 02/11/18 02/12/18 02/13/18 06:59 06:59 06:59 Intake Total 6535 784 Output Total 5491 2230 Balance 1119 -1446 Physical Exam: General appearance: PRESENT: no acute distress, obese Head exam: PRESENT: atraumatic, normocephalic Eye exam: PRESENT: conjunctiva pink, EOMI, PERRLA. ABSENT: scleral icterus Ear exam: PRESENT: normal external ear exam Mouth exam: PRESENT: moist Teeth exam: PRESENT: poor dentation Respiratory exam: PRESENT: clear to auscultation [place], decreased breath sounds - at lung bases Cardiovascular exam: PRESENT: RRR. ABSENT: diastolic murmur, rubs, systolic murmur GI/Abdominal exam: PRESENT: hypoactive bowel sounds Gentrourinary exam: PRESENT: indwelling catheter Neurological exam: PRESENT: alert, awake, oriented to person, oriented to place, oriented to time, oriented to situation, CN II-XII grossly intact. ABSENT: motor sensory deficit Psychiatric exam: PRESENT: appropriate affect, normal mood. ABSENT: homicidal ideation, suicidal ideation Skin exam: PRESENT: dry, warm, other - surgical site dressing okay with abdominal band in use. Results Laboratory Results: 02/07/18 20:49 Blood Type A POSITIVE Antibody Screen NEGATIVE 02/03/18 02/03/18 02/04/18 13:30 13:30 01:07 Creatine Kinase 76 62 Troponin I < 0.012 02/04/18 02/04/18 02/04/18 01:07 06:59 06:59 Creatine Kinase 53 Troponin I < 0.012 < 0.012 Impressions: GI Bleed Scan Nuclear Medicine 02/06/18 00:00 IMPRESSION: There is no area of abnormal tracer excretion in the distribution of large bowel which increases in intensity over time or shows antegrade or retrograde movement in the large bowel to suggest active lower GI bleeding There are few faint areas of irregular tracer presence in the proximal large bowel along the inferior margin of the liver which can be seen in an infectious process like acute diverticulitis Delayed imaging can be obtained at 24 hours, following tracer injection time, to look for any delayed intermittent bleeding in the lower GI tract. copyright 2010 [email or web address]- All Rights Reserved Assessment & Plan - Diagnosis (1) Epistaxis not due to trauma Is this a current diagnosis for this admission?: Yes (2) Lower GI bleeding Is this a current diagnosis for this admission?: Yes (4) Type 2 diabetes mellitus Qualifiers: Diabetes mellitus senior care insulin use: with terminal operations manager use Diabetes mellitus complication status: with neurologic complications Diabetes mellitus complication detail: with polyneuropathy Qualified Code(s): E11.42 - Type 2 diabetes mellitus with diabetic polyneuropathy; Z79.4 - [facility] (current) use of insulin Is this a current diagnosis for this admission?: Yes (5) HTN (hypertension) Qualifiers: Hypertension type: essential hypertension Qualified Code(s): I10 - Essential (primary) hypertension Is this a current diagnosis for this admission?: Yes (6) HLD (hyperlipidemia) Qualifiers: Hyperlipidemia type: unspecified Qualified Code(s): E78.5 - Hyperlipidemia, unspecified Is this a current diagnosis for this admission?: Yes - Time Time Spent with patient: 25-34 minutes Medications reviewed and adjusted accordingly: Yes Anticipated discharge: Home with Homehealth Within: Other - Inpatient Certification Based on my medical assessment, after consideration of the patient's comorbidities, presenting symptoms, or acuity I expect that the services needed warrant INPATIENT care.: Yes I certify that my determination is in accordance with my understanding of Medicare's requirements for reasonable and necessary INPATIENT services [42 CFR 412.3e].: Yes Medical Necessity: Significant Comorbidiites Make Outpatient Treatment Too Risky, Need Close Monitoring Due to Risk of Patient Decompensation, Need For IV Fluids, Need For Continuous Telemetry Monitoring, Risk of Complication if Not Cared For in Hospital Post Hospital Care: D/C Party Bus Driver Documentation - Plan Summary Plan Summary: Continue current medication management. D/C Hernandez catheter. Encouraged bed to chair transfer. PT evaluation for ambulatory safety.
[2018-02-12 08:04] LABS: HEMATOCRIT 27.9 % (36.0-47.0); HEMOGLOBIN 9.4 g/dL (12.0-15.5); MEAN CORPUSCULAR HEMOGLOBIN 31.1 pg (27.0-33.4); MEAN CORPUSCULAR HGB CONC 33.6 g/dL (32.0-36.0); MEAN CORPUSCULAR VOLUME 93 fl (80-97); PLATELET COUNT 118 10^3/uL (150-450); RED BLOOD COUNT 3.01 10^6/uL (3.72-5.28); RED CELL DISTRIBUTION WIDTH 18.4 % (11.5-14.0); WHITE BLOOD COUNT 20.1 10^3/uL (4.0-10.5)
[2018-02-12 08:16] LABS: ALANINE AMINOTRANSFERASE 14 U/L (9-52); ALBUMIN 2.8 g/dL (3.5-5.0); ALKALINE PHOSPHATASE 136 U/L (38-126); ANION GAP 7 (5-19); ASPARTATE AMINO TRANSFERASE 31 U/L (14-36); BILIRUBIN,DIRECT 0.3 mg/dL (0.0-0.4); BILIRUBIN,TOTAL 1.3 mg/dL (0.2-1.3); BLOOD UREA NITROGEN 5 mg/dL (7-20); CALCIUM 9.1 mg/dL (8.4-10.2); CARBON DIOXIDE 27 mmol/L (22-30); CHLORIDE 109 mmol/L (98-107); GLUCOSE 159 mg/dL (75-110); POTASSIUM 3.4 mmol/L (3.6-5.0); SODIUM 142.6 mmol/L (137-145); TOTAL PROTEIN 6.3 g/dL (6.3-8.2)
[2018-02-12 08:37] LABS: ABSOLUTE LYMPHOCYTES# (MANUAL) 1.4 10^3/uL (0.5-4.7); ABSOLUTE MONOCYTES # (MANUAL) 1.6 10^3/uL (0.1-1.4); ABSOLUTE NEUTROPHILS# (MANUAL) 16.9 10^3/uL (1.7-8.2); BAND NEUTROPHILS % (MANUAL) 1 % (3-5); BASOPHILS % (MANUAL) 0 % (0-2); EOSINOPHILS % (MANUAL) 1 % (0-6); LYMPHOCYTES % (MANUAL) 7 % (13-45); MONOCYTES % (MANUAL) 8 % (3-13); SEGMENTED NEUTROPHILS % (MAN) 83 % (42-78); TOTAL CELLS COUNTED 100
[2018-02-12 08:39] LABS: ANISOCYTOSIS 1+; PLATELET LARGE PRESENT; POLYCHROMASIA 1+; TOXIC GRANULATION SLIGHT
[2018-02-12] MEDS: HUM INSULIN NPH/REG INSULIN HM 100 UNIT/1 ML 3 ML SUBCUT SCH ×2 (08:39→18:17)
[2018-02-12 08:40] LABS: PLATELET COMMENT DECREASED
[2018-02-12] MEDS: LOSARTAN POTASSIUM 50 MG TABLET PO SCH (09:47)
[2018-02-12] MEDS: LORATADINE 10 MG TABLET PO SCH (09:47)
[2018-02-12] MEDS: SODIUM CHLORIDE NASAL SPRAY 44 ML NASL SCH ×2 (09:49→22:07)
[2018-02-12] MEDS: OXYMETAZOLINE HCL 0.05% NASAL SPRAY 15 ML BOTTLE NASL SCH ×2 (09:50→22:07)
[2018-02-12] MEDS: BACITRACIN ZINC OINTMENT 15 GM TOP SCH (09:51)
[2018-02-12] MEDS: POTASSIUM CHLORIDE 10 MEQ CAPSULE.ER PO SCH ×2 (18:08→21:46)
[2018-02-12] MEDS: METOPROLOL SUCCINATE 50 MG TAB.SR.24H PO SCH (21:47)
[2018-02-12] MEDS: EZETIMIBE 10 MG TABLET PO SCH (21:47)
--- NOTE | 2018-02-12 21:58 | PDOC PROGRESS REPORT ---
Subjective Progress Note for:: 02/12/18 Reason For Visit: GI BLEED Physical Exam Vital Signs: Temp Pulse Resp BP Pulse Ox 97.6 F 64 16 152/64 H 100 02/12/18 19:25 02/12/18 19:25 02/12/18 16:33 02/12/18 19:25 02/12/18 19:25 Intake & Output 02/11/18 02/12/18 02/13/18 06:59 06:59 06:59 Intake Total 6535 784 621 Output Total 5427 2230 415 Balance 1119 -1446 206 General appearance: PRESENT: no acute distress, cooperative GI/Abdominal exam: PRESENT: soft - Abdominal incision examined clean and dry without any evidence of drainage. The Ata-Gandara drain has minimal serosanguineous drainage. Gentrourinary exam: PRESENT: indwelling catheter - The Hernandez catheter has been removed. Results Laboratory Results: 02/12/18 06:30 02/12/18 06:30 02/07/18 02/12/18 02/12/18 20:49 06:30 06:30 WBC 20.1 H RBC 3.01 L Hgb 9.4 L Hct 27.9 L MCV 93 MCH 31.1 MCHC 33.6 RDW 18.4 H Plt Count 118 L Seg Neutrophils % Not Reportable Lymphocytes % Not Reportable Monocytes % Not Reportable Eosinophils % Not Reportable Basophils % Not Reportable Absolute Neutrophils Not Reportable Absolute Lymphocytes Not Reportable Absolute Monocytes Not Reportable Absolute Eosinophils Not Reportable Absolute Basophils Not Reportable Sodium 142.6 Potassium 3.4 L Chloride 109 H Carbon Dioxide 27 Anion Gap 7 BUN 5 L Creatinine 0.60 Est GFR ( Amer) > 60 Est GFR (Non-Af Amer) > 60 Glucose 159 H Calcium 9.1 Magnesium Total Bilirubin 1.3 AST 31 ALT 14 Alkaline Phosphatase 136 H Total Protein 6.3 Albumin 2.8 L Blood Type A POSITIVE Antibody Screen NEGATIVE 02/12/18 06:30 WBC RBC Hgb Hct MCV MCH MCHC RDW Plt Count Seg Neutrophils % Lymphocytes % Monocytes % Eosinophils % Basophils % Absolute Neutrophils Absolute Lymphocytes Absolute Monocytes Absolute Eosinophils Absolute Basophils Sodium Potassium Chloride Carbon Dioxide Anion Gap BUN Creatinine Est GFR ( Amer) Est GFR (Non-Af Amer) Glucose Calcium Magnesium 1.5 L Total Bilirubin AST ALT Alkaline Phosphatase Total Protein Albumin Blood Type Antibody Screen 02/03/18 02/03/18 02/04/18 13:30 13:30 01:07 Creatine Kinase 76 62 Troponin I < 0.012 02/04/18 02/04/18 02/04/18 01:07 06:59 06:59 Creatine Kinase 53 Troponin I < 0.012 < 0.012 Impressions: GI Bleed Scan Nuclear Medicine 02/06/18 00:00 IMPRESSION: There is no area of abnormal tracer excretion in the distribution of large bowel which increases in intensity over time or shows antegrade or retrograde movement in the large bowel to suggest active lower GI bleeding There are few faint areas of irregular tracer presence in the proximal large bowel along the inferior margin of the liver which can be seen in an infectious process like acute diverticulitis Delayed imaging can be obtained at 24 hours, following tracer injection time, to look for any delayed intermittent bleeding in the lower GI tract. copyright 2010 [employer]- All Rights Reserved Assessment & Plan - Diagnosis (1) Anemia Qualifiers: Anemia type: other cause Other causes of anemia: acute posthemorrhagic Qualified Code(s): D62 - Acute posthemorrhagic anemia Is this a current diagnosis for this admission?: Yes (2) Colon cancer Qualifiers: Colon location: unspecified part of colon Qualified Code(s): C18.9 - Malignant neoplasm of colon, unspecified Is this a current diagnosis for this admission?: Yes (3) Epistaxis not due to trauma Is this a current diagnosis for this admission?: Yes - Plan Summary Plan Summary: Plan is to remove Ata-Gandara drain continue patient on clear liquid diet until passing flatus
[2018-02-13] MEDS: ACETAMINOPHEN INJ/PF 1000 MG/100 ML SDV IV SCH ×4 (02:45→17:38)
[2018-02-13] MEDS: MORPHINE SULFATE 10 MG/ML INJ IV PRN ×3 (03:48→17:38)
[2018-02-13] MEDS: LANSOPRAZOLE 15 MG TAB.RAP.DR PO SCH (05:42)
[2018-02-13] MEDS: DEXTROSE 50%-WATER SYRINGE 25 GM/50 ML DOSE IV PRN (06:03)
[2018-02-13] MEDS: NORMAL SALINE 1000 ML 1,000 ML IV PRN (06:10)
--- NOTE | 2018-02-13 08:00 | PDOC PROGRESS REPORT ---
Subjective Progress Note for:: 02/13/18 Subjective:: Tolerating clear liquid diet. No bowel movement or flatus so far. No significant abdominal pain. No nausea or vomiting. No fever or chills. Denied chest pain or difficulty with breathing. Reason For Visit: GI BLEED Physical Exam Vital Signs: Temp Pulse Resp BP Pulse Ox 97.8 F 63 19 138/77 H 99 02/13/18 00:00 02/13/18 02:00 02/13/18 00:00 02/13/18 00:00 02/13/18 00:00 Intake & Output 02/12/18 02/13/18 02/14/18 06:59 06:59 06:59 Intake Total 784 1947 Output Total 2230 425 Balance -1446 1522 Results Laboratory Results: 02/12/18 06:30 02/12/18 06:30 02/07/18 02/12/18 02/12/18 20:49 06:30 06:30 WBC 20.1 H RBC 3.01 L Hgb 9.4 L Hct 27.9 L MCV 93 MCH 31.1 MCHC 33.6 RDW 18.4 H Plt Count 118 L Seg Neutrophils % Not Reportable Lymphocytes % Not Reportable Monocytes % Not Reportable Eosinophils % Not Reportable Basophils % Not Reportable Absolute Neutrophils Not Reportable Absolute Lymphocytes Not Reportable Absolute Monocytes Not Reportable Absolute Eosinophils Not Reportable Absolute Basophils Not Reportable Sodium 142.6 Potassium 3.4 L Chloride 109 H Carbon Dioxide 27 Anion Gap 7 BUN 5 L Creatinine 0.60 Est GFR ( Amer) > 60 Est GFR (Non-Af Amer) > 60 Glucose 159 H Calcium 9.1 Magnesium Total Bilirubin 1.3 AST 31 ALT 14 Alkaline Phosphatase 136 H Total Protein 6.3 Albumin 2.8 L Blood Type A POSITIVE Antibody Screen NEGATIVE 02/12/18 06:30 WBC RBC Hgb Hct MCV MCH MCHC RDW Plt Count Seg Neutrophils % Lymphocytes % Monocytes % Eosinophils % Basophils % Absolute Neutrophils Absolute Lymphocytes Absolute Monocytes Absolute Eosinophils Absolute Basophils Sodium Potassium Chloride Carbon Dioxide Anion Gap BUN Creatinine Est GFR ( Amer) Est GFR (Non-Af Amer) Glucose Calcium Magnesium 1.5 L Total Bilirubin AST ALT Alkaline Phosphatase Total Protein Albumin Blood Type Antibody Screen 02/03/18 02/03/18 02/04/18 13:30 13:30 01:07 Creatine Kinase 76 62 Troponin I < 0.012 12/25/18 12/25/18 12/25/18 01:07 06:59 06:59 Creatine Kinase 53 Troponin I < 0.012 < 0.012 Impressions: GI Bleed Scan Nuclear Medicine 02/06/18 00:00 IMPRESSION: There is no area of abnormal tracer excretion in the distribution of large bowel which increases in intensity over time or shows antegrade or retrograde movement in the large bowel to suggest active lower GI bleeding There are few faint areas of irregular tracer presence in the proximal large bowel along the inferior margin of the liver which can be seen in an infectious process like acute diverticulitis Delayed imaging can be obtained at 24 hours, following tracer injection time, to look for any delayed intermittent bleeding in the lower GI tract. 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 helper insulin use: with skilled nursing use Diabetes mellitus complication status: with neurologic complications Diabetes mellitus complication detail: with polyneuropathy Qualified Code(s): E11.42 - Type 2 diabetes mellitus with diabetic polyneuropathy; Z79.4 - shelter (current) use of insulin Is this a current diagnosis for this admission?: Yes (5) HTN (hypertension) Qualifiers: Hypertension type: essential hypertension Qualified Code(s): I10 - Essential (primary) hypertension Is this a current diagnosis for this admission?: Yes (6) HLD (hyperlipidemia) Qualifiers: Hyperlipidemia type: unspecified Qualified Code(s): E78.5 - Hyperlipidemia, unspecified Is this a current diagnosis for this admission?: Yes - Time Time Spent with patient: 25-34 minutes Medications reviewed and adjusted accordingly: Yes Anticipated discharge: Home with Homehealth Within: Other - Inpatient Certification Based on my medical assessment, after consideration of the patient's comorbidities, presenting symptoms, or acuity I expect that the services needed warrant INPATIENT care.: Yes I certify that my determination is in accordance with my understanding of Medicare's requirements for reasonable and necessary INPATIENT services [42 CFR 412.3e].: Yes Medical Necessity: Need Close Monitoring Due to Risk of Patient Decompensation, Need For Continuous Telemetry Monitoring, Risk of Complication if Not Cared For in Hospital Post Hospital Care: D/C Food Sanitarian Documentation - Plan Summary Plan Summary: Continue current medication management. Maintain on clear liquid diet pending flatus or bowel movement. Encourage ambulation efforts.
[2018-02-13] MEDS: HUM INSULIN NPH/REG INSULIN HM 100 UNIT/1 ML 3 ML SUBCUT SCH ×2 (08:33→17:39)
[2018-02-13] MEDS: LORATADINE 10 MG TABLET PO SCH (12:05)
[2018-02-13] MEDS: LOSARTAN POTASSIUM 50 MG TABLET PO SCH (12:10)
[2018-02-13] MEDS: OXYMETAZOLINE HCL 0.05% NASAL SPRAY 15 ML BOTTLE NASL SCH ×2 (12:11→21:25)
[2018-02-13] MEDS: SODIUM CHLORIDE NASAL SPRAY 44 ML NASL SCH ×2 (12:12→21:26)
--- NOTE | 2018-02-13 17:11 | PDOC PROGRESS REPORT ---
Subjective Progress Note for:: 02/13/18 Reason For Visit: GI BLEED Physical Exam Vital Signs: Temp Pulse Resp BP Pulse Ox 98.4 F 69 15 162/64 H 99 02/13/18 11:23 02/13/18 11:23 02/13/18 11:23 02/13/18 11:23 02/13/18 11:23 Intake & Output 02/12/18 02/13/18 02/14/18 06:59 06:59 06:59 Intake Total 784 1947 Output Total 2230 425 Balance -1446 1522 Results Laboratory Results: 02/12/18 06:30 02/12/18 06:30 02/12/18 06:30 Magnesium 1.5 L 02/03/18 02/03/18 02/04/18 13:30 13:30 01:07 Creatine Kinase 76 62 Troponin I < 0.012 02/04/18 02/04/18 02/04/18 01:07 06:59 06:59 Creatine Kinase 53 Troponin I < 0.012 < 0.012 Impressions: GI Bleed Scan Nuclear Medicine 02/06/18 00:00 IMPRESSION: There is no area of abnormal tracer excretion in the distribution of large bowel which increases in intensity over time or shows antegrade or retrograde movement in the large bowel to suggest active lower GI bleeding There are few faint areas of irregular tracer presence in the proximal large bowel along the inferior margin of the liver which can be seen in an infectious process like acute diverticulitis Delayed imaging can be obtained at 24 hours, following tracer injection time, to look for any delayed intermittent bleeding in the lower GI tract. copyright 2010 [employer]- All Rights Reserved Assessment & Plan - Diagnosis (1) Anemia Qualifiers: Anemia type: other cause Other causes of anemia: acute posthemorrhagic Qualified Code(s): D62 - Acute posthemorrhagic anemia Is this a current diagnosis for this admission?: Yes (2) Lower GI bleeding Is this a current diagnosis for this admission?: Yes (3) History of colon cancer, stage IV Is this a current diagnosis for this admission?: Yes - Plan Summary Plan Summary: This is a 72-year-old female status post exploratory laparotomy and right hemicolectomy for a bleeding right-sided colon tumor. The patient has had no further bleeding since surgery. The patient is tolerating clear liquids. She denies nausea, vomiting, or distention. She still denies flatus. I will advance her to full liquids. I am awaiting bowel function to advance her diet any further. Ambulate. Pulmonary toilet.
[2018-02-13] MEDS: METOPROLOL SUCCINATE 50 MG TAB.SR.24H PO SCH (21:26)
[2018-02-13] MEDS: EZETIMIBE 10 MG TABLET PO SCH (21:27)
[2018-02-14] MEDS: MORPHINE SULFATE 10 MG/ML INJ IV PRN ×3 (02:09→17:19)
[2018-02-14] MEDS: NORMAL SALINE 1000 ML 1,000 ML IV PRN (03:18)
[2018-02-14] MEDS: LANSOPRAZOLE 15 MG TAB.RAP.DR PO SCH (05:09)
[2018-02-14] MEDS: ACETAMINOPHEN INJ/PF 1000 MG/100 ML SDV IV SCH (05:37)
[2018-02-14] MEDS ORDERED: KETOROLAC TROMETHAMINE INJ/PF 30 MG/1 ML SDV IV PRN (07:30)
--- NOTE | 2018-02-14 08:36 | PDOC PROGRESS REPORT ---
Subjective Progress Note for:: 02/14/18 Subjective:: Patient reported bowel movement today. Tolerating oral feeding on clear liquid diet. No significant abdominal pain, nausea, or vomiting. No chest pain or difficulty with breathing. Reason For Visit: GI BLEED Physical Exam Vital Signs: Temp Pulse Resp BP Pulse Ox 100.4 F 83 16 160/70 H 100 02/14/18 08:00 02/14/18 08:00 02/14/18 08:00 02/14/18 08:00 02/14/18 08:00 Intake & Output 02/13/18 02/14/18 02/15/18 06:59 06:59 06:59 Intake Total 1947 1504 Output Total 425 1 Balance 1522 1503 Physical Exam: General appearance: PRESENT: no acute distress, obese Head exam: PRESENT: atraumatic, normocephalic Eye exam: PRESENT: conjunctiva pink, EOMI, PERRLA. ABSENT: pallor, scleral icterus Ear exam: PRESENT: normal external ear exam Mouth exam: PRESENT: moist Teeth exam: PRESENT: poor dentition Respiratory exam: PRESENT: clear to auscultation [place], decreased breath sounds - at lung bases Cardiovascular exam: PRESENT: RRR. ABSENT: diastolic murmur, rubs, systolic murmur GI/Abdominal exam: PRESENT: normal bowel sounds, soft, nontender. Neurological exam: PRESENT: alert, awake, oriented to person, oriented to place, oriented to time, oriented to situation, CN II-XII grossly intact. ABSENT: motor sensory deficit Psychiatric exam: PRESENT: appropriate affect, normal mood. ABSENT: homicidal ideation, suicidal ideation Skin exam: PRESENT: dry, warm, other - surgical site dressing okay with abdominal band in use. Results Laboratory Results: 02/12/18 06:30 02/12/18 06:30 02/03/18 02/03/18 02/04/18 13:30 13:30 01:07 Creatine Kinase 76 62 Troponin I < 0.012 02/04/18 02/04/18 02/04/18 01:07 06:59 06:59 Creatine Kinase 53 Troponin I < 0.012 < 0.012 Impressions: GI Bleed Scan Nuclear Medicine 02/06/18 00:00 IMPRESSION: There is no area of abnormal tracer excretion in the distribution of large bowel which increases in intensity over time or shows antegrade or retrograde movement in the large bowel to suggest active lower GI bleeding There are few faint areas of irregular tracer presence in the proximal large bowel along the inferior margin of the liver which can be seen in an infectious process like acute diverticulitis Delayed imaging can be obtained at 24 hours, following tracer injection time, to look for any delayed intermittent bleeding in the lower GI tract. 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 Diabetes mellitus complication status: with neurologic complications Diabetes mellitus complication detail: with polyneuropathy Qualified Code(s): E11.42 - Type 2 diabetes mellitus with diabetic polyneuropathy; Z79.4 - [facility] (current) use of insulin Is this a current diagnosis for this admission?: Yes (5) HTN (hypertension) Qualifiers: Hypertension type: essential hypertension Qualified Code(s): I10 - Essential (primary) hypertension Is this a current diagnosis for this admission?: Yes (6) HLD (hyperlipidemia) Qualifiers: Hyperlipidemia type: unspecified Qualified Code(s): E78.5 - Hyperlipidemia, unspecified Is this a current diagnosis for this admission?: Yes - Time Time Spent with patient: 25-34 minutes Medications reviewed and adjusted accordingly: Yes Anticipated discharge: Home with Homehealth Within: Other - Inpatient Certification Based on my medical assessment, after consideration of the patient's jaren rbidities, presenting symptoms, or acuity I expect that the services needed warrant INPATIENT care.: Yes I certify that my determination is in accordance with my understanding of Medicare's requirements for reasonable and necessary INPATIENT services [42 CFR 412.3e].: Yes Medical Necessity: Need Close Monitoring Due to Risk of Patient Decompensation, Need For IV Fluids, Need For Continuous Telemetry Monitoring, Need for Pain Control, Risk of Complication if Not Cared For in Hospital Post Hospital Care: D/C Predator Control Trapper Documentation - Plan Summary Plan Summary: Continue current medication management. Advance diet to full liquid at dinner. Obtain CBC with diff, CMP in am.
[2018-02-14] MEDS: SODIUM CHLORIDE NASAL SPRAY 44 ML NASL SCH ×2 (09:12→21:15)
[2018-02-14] MEDS: OXYMETAZOLINE HCL 0.05% NASAL SPRAY 15 ML BOTTLE NASL SCH ×2 (09:12→21:15)
[2018-02-14] MEDS: LOSARTAN POTASSIUM 50 MG TABLET PO SCH (09:12)
[2018-02-14] MEDS: LORATADINE 10 MG TABLET PO SCH (09:12)
[2018-02-14] MEDS: HUM INSULIN NPH/REG INSULIN HM 100 UNIT/1 ML 3 ML SUBCUT SCH ×2 (09:14→17:07)
[2018-02-14] MEDS ORDERED: KETOROLAC TROMETHAMINE 10 MG TABLET PO PRN (10:10)
--- NOTE | 2018-02-14 10:13 | PDOC PROGRESS REPORT ---
Subjective Progress Note for:: 02/14/18 Subjective:: Sitting in chair, tolerating clear liquid; voiding; drains out. Reason For Visit: GI BLEED Physical Exam Vital Signs: Temp Pulse Resp BP Pulse Ox 100.4 F 83 16 160/70 H 100 02/14/18 08:00 02/14/18 08:00 02/14/18 08:00 02/14/18 08:00 02/14/18 08:00 Intake & Output 02/13/18 02/14/18 02/15/18 06:59 06:59 06:59 Intake Total 1947 1504 Output Total 425 1 Balance 1522 1503 General appearance: PRESENT: no acute distress GI/Abdominal exam: PRESENT: other - Abdomen soft midline dressing approximated olivia intact. No peritoneal signs no rigidity Results Laboratory Results: 02/12/18 06:30 02/12/18 06:30 02/03/18 02/03/18 02/04/18 13:30 13:30 01:07 Creatine Kinase 76 62 Troponin I < 0.012 02/04/18 02/04/18 02/04/18 01:07 06:59 06:59 Creatine Kinase 53 Troponin I < 0.012 < 0.012 Impressions: GI Bleed Scan Nuclear Medicine 02/06/18 00:00 IMPRESSION: There is no area of abnormal tracer excretion in the distribution of large bowel which increases in intensity over time or shows antegrade or retrograde movement in the large bowel to suggest active lower GI bleeding There are few faint areas of irregular tracer presence in the proximal large bowel along the inferior margin of the liver which can be seen in an infectious process like acute diverticulitis Delayed imaging can be obtained at 24 hours, following tracer injection time, to look for any delayed intermittent bleeding in the lower GI tract. copyright 2010 [employer]- All Rights Reserved Assessment & Plan - Diagnosis (1) Anterior epistaxis Is this a current diagnosis for this admission?: Yes (2) Lower GI bleeding Is this a current diagnosis for this admission?: Yes Plan: Patient now 4 days status post exploratory laparotomy, right hemicolectomy for bleeding right colonic tumor, tolerating clear liquids; no definitive stool. Recommendations: 1. Advance diet 2. Switch to p.o. pain medication 3. Shower; increased ambulation
[2018-02-14] MEDS: TRAMADOL HCL 50 MG TABLET PO PRN (10:46)
[2018-02-14] MEDS: INSULIN LISPRO 100 UNIT/ML 3 ML VIAL SUBCUT PRN (14:20)
[2018-02-14] MEDS: DOCUSATE SODIUM 100 MG CAPSULE PO SCH (17:11)
[2018-02-14] MEDS: EZETIMIBE 10 MG TABLET PO SCH (21:15)
[2018-02-14] MEDS: METOPROLOL SUCCINATE 50 MG TAB.SR.24H PO SCH (21:15)
[2018-02-15] MEDS: TRAMADOL HCL 50 MG TABLET PO PRN ×3 (04:07→18:24)
[2018-02-15] MEDS: MORPHINE SULFATE 10 MG/ML INJ IV PRN (05:26)
[2018-02-15] MEDS: LANSOPRAZOLE 15 MG TAB.RAP.DR PO SCH (05:26)
[2018-02-15 05:47] LABS: ABSOLUTE BASOPHILS # (AUTO) 0.1 10^3/uL (0.0-0.2); ABSOLUTE EOSINOPHILS # (AUTO) 0.1 10^3/uL (0.0-0.6); ABSOLUTE LYMPHOCYTES (AUTO) 1.2 10^3/uL (0.5-4.7); ABSOLUTE MONOCYTES (AUTO) 1.3 10^3/uL (0.1-1.4); ABSOLUTE NEUT (AUTO) 11.7 10^3/uL (1.7-8.2); BASOPHILS % (AUTO) 0.6 % (0-2); EOSINOPHILS % (AUTO) 0.6 % (0-6); HEMATOCRIT 26.4 % (36.0-47.0); HEMOGLOBIN 8.7 g/dL (12.0-15.5); LYMPHOCYTES % (AUTO) 8.5 % (13-45); MEAN CORPUSCULAR VOLUME 94 fl (80-97); MONOCYTES % (AUTO) 9.3 % (3-13); PLATELET COUNT 126 10^3/uL (150-450); RED BLOOD COUNT 2.81 10^6/uL (3.72-5.28); RED CELL DISTRIBUTION WIDTH 21.1 % (11.5-14.0); TOTAL CELLS COUNTED % (AUTO) 100 %; WHITE BLOOD COUNT 14.4 10^3/uL (4.0-10.5)
[2018-02-15 06:11] LABS: ALANINE AMINOTRANSFERASE 26 U/L (9-52); ALBUMIN 2.6 g/dL (3.5-5.0); ALKALINE PHOSPHATASE 154 U/L (38-126); ASPARTATE AMINO TRANSFERASE 72 U/L (14-36); BILIRUBIN,DIRECT 0.2 mg/dL (0.0-0.4); BILIRUBIN,TOTAL 1.4 mg/dL (0.2-1.3); BLOOD UREA NITROGEN 5 mg/dL (7-20); CALCIUM 9.3 mg/dL (8.4-10.2); GLUCOSE 67 mg/dL (75-110); POTASSIUM 3.5 mmol/L (3.6-5.0); TOTAL PROTEIN 6.1 g/dL (6.3-8.2)
[2018-02-15] MEDS: DEXTROSE 50%-WATER SYRINGE 25 GM/50 ML DOSE IV PRN (06:11)
[2018-02-15 06:16] LABS: CARBON DIOXIDE 28 mmol/L (22-30); CHLORIDE 111 mmol/L (98-107); SODIUM 142.9 mmol/L (137-145)
[2018-02-15 06:19] LABS: ANION GAP 4 (5-19)
[2018-02-15 07:03] LABS: ANISOCYTOSIS 3+; OVALOCYTES SLIGHT; POIKILOCYTOSIS 1+; SCHISTOCYTES SLIGHT; TEAR DROP CELLS SLIGHT; TOXIC GRANULATION SLIGHT
[2018-02-15 07:04] LABS: PLATELET COMMENT ADEQUATE
[2018-02-15] MEDS: HUM INSULIN NPH/REG INSULIN HM 100 UNIT/1 ML 3 ML SUBCUT SCH ×2 (07:25→17:13)
[2018-02-15] MEDS: LOSARTAN POTASSIUM 50 MG TABLET PO SCH (09:01)
[2018-02-15] MEDS: LORATADINE 10 MG TABLET PO SCH (09:01)
[2018-02-15] MEDS: DOCUSATE SODIUM 100 MG CAPSULE PO SCH ×2 (09:01→18:20)
[2018-02-15] MEDS: NORMAL SALINE 1000 ML 1,000 ML IV PRN (09:01)
[2018-02-15] MEDS: SODIUM CHLORIDE NASAL SPRAY 44 ML NASL SCH ×2 (09:03→21:31)
[2018-02-15] MEDS: OXYMETAZOLINE HCL 0.05% NASAL SPRAY 15 ML BOTTLE NASL SCH ×2 (09:03→21:31)
--- NOTE | 2018-02-15 09:50 | PDOC PROGRESS REPORT ---
Subjective Progress Note for:: 02/15/18 Reason For Visit: GI BLEED Physical Exam Vital Signs: Temp Pulse Resp BP Pulse Ox 98.6 F 88 20 180/87 H 98 02/15/18 09:06 02/15/18 09:06 02/15/18 09:06 02/15/18 09:06 02/15/18 09:06 Intake & Output 02/14/18 02/15/18 02/16/18 06:59 06:59 06:59 Intake Total 1504 1472 Output Total 1 Balance 1503 1472 Weight 88.6 kg General appearance: PRESENT: no acute distress, cooperative GI/Abdominal exam: PRESENT: soft - abd soft, non tender wound healing well olivia intact. Results Laboratory Results: 02/15/18 05:23 02/15/18 05:23 02/14/18 02/15/18 02/15/18 16:15 05:23 05:23 WBC 14.4 H RBC 2.81 L Hgb 8.7 L Hct 26.4 L MCV 94 MCH 31.0 MCHC 33.0 RDW 21.1 H Plt Count 126 L Seg Neutrophils % 81.0 H Lymphocytes % 8.5 L Monocytes % 9.3 Eosinophils % 0.6 Basophils % 0.6 Absolute Neutrophils 11.7 H Absolute Lymphocytes 1.2 Absolute Monocytes 1.3 Absolute Eosinophils 0.1 Absolute Basophils 0.1 Sodium 142.9 Potassium 3.5 L Chloride 111 H Carbon Dioxide 28 Anion Gap 4 L BUN 5 L Creatinine 0.54 Est GFR ( Amer) > 60 Est GFR (Non-Af Amer) > 60 Glucose 67 L Calcium 9.3 Magnesium 1.5 L Total Bilirubin 1.4 H AST 72 H ALT 26 Alkaline Phosphatase 154 H Total Protein 6.1 L Albumin 2.6 L 02/03/18 02/03/18 02/04/18 13:30 13:30 01:07 Creatine Kinase 76 62 Troponin I < 0.012 02/04/18 02/04/18 02/04/18 01:07 06:59 06:59 Creatine Kinase 53 Troponin I < 0.012 < 0.012 Impressions: GI Bleed Scan Nuclear Medicine 02/06/18 00:00 IMPRESSION: There is no area of abnormal tracer excretion in the distribution of large bowel which increases in intensity over time or shows antegrade or retrograde movement in the large bowel to suggest active lower GI bleeding There are few faint areas of irregular tracer presence in the proximal large bowel along the inferior margin of the liver which can be seen in an infectious process like acute diverticulitis Delayed imaging can be obtained at 24 hours, following tracer injection time, to look for any delayed intermittent bleeding in the lower GI tract. copyright 2010 [employer]- All Rights Reserved Assessment & Plan - Diagnosis (1) Anemia Qualifiers: Anemia type: other cause Other causes of anemia: acute posthemorrhagic Qualified Code(s): D62 - Acute posthemorrhagic anemia Is this a current diagnosis for this admission?: Yes (2) Colon cancer Qualifiers: Colon location: unspecified part of colon Qualified Code(s): C18.9 - Malignant neoplasm of colon, unspecified Is this a current diagnosis for this admission?: Yes (3) Epistaxis not due to trauma Is this a current diagnosis for this admission?: Yes - Plan Summary Plan Summary: pt now stable no further rectal bleeding has had return of bowel function wbc trending down no further surgical intervention planned stables should be removed in 4-5 days pt will need a f/u in [facility] after discharge for staple removal please call surgicalist for any further problems/questions
--- NOTE | 2018-02-15 12:11 | PDOC PROGRESS REPORT ---
Subjective Progress Note for:: 02/15/18 Subjective:: Tolerating oral feeding on full liquid diet. No bowel movement since last evaluation. No chest pain or difficulty with breathing. No recurrent nasal bleeding. No fever or chills. Reason For Visit: GI BLEED Physical Exam Vital Signs: Temp Pulse Resp BP Pulse Ox 98.6 F 88 20 180/87 H 98 02/15/18 09:06 02/15/18 09:06 02/15/18 09:06 02/15/18 09:06 02/15/18 09:06 Intake & Output 02/14/18 02/15/18 02/16/18 06:59 06:59 06:59 Intake Total 1504 1472 Output Total 1 Balance 1503 1472 Weight 88.6 kg Physical Exam: General appearance: PRESENT: no acute distress, obese Head exam: PRESENT: atraumatic, normocephalic Eye exam: PRESENT: conjunctiva pink, EOMI, PERRLA. ABSENT: pallor, scleral icterus Ear exam: PRESENT: normal external ear exam Mouth exam: PRESENT: moist Teeth exam: PRESENT: poor dentition Respiratory exam: PRESENT: clear to auscultation [place], decreased breath sounds - at lung bases Cardiovascular exam: PRESENT: RRR. ABSENT: diastolic murmur, rubs, systolic murmur GI/Abdominal exam: PRESENT: normal bowel sounds, soft, nontender. Surgical site satisfactory with olivia. Neurological exam: PRESENT: alert, awake, oriented to person, oriented to place, oriented to time, oriented to situation, CN II-XII grossly intact. ABSENT: motor sensory deficit Psychiatric exam: PRESENT: appropriate affect, normal mood. ABSENT: homicidal ideation, suicidal ideation Skin exam: PRESENT: dry, warm, other - surgical site dressing okay with abdominal band in use. Results Laboratory Results: 02/15/18 05:23 02/15/18 05:23 02/14/18 02/15/18 02/15/18 16:15 05:23 05:23 WBC 14.4 H RBC 2.81 L Hgb 8.7 L Hct 26.4 L MCV 94 MCH 31.0 MCHC 33.0 RDW 21.1 H Plt Count 126 L Seg Neutrophils % 81.0 H Lymphocytes % 8.5 L Monocytes % 9.3 Eosinophils % 0.6 Basophils % 0.6 Absolute Neutrophils 11.7 H Absolute Lymphocytes 1.2 Absolute Monocytes 1.3 Absolute Eosinophils 0.1 Absolute Basophils 0.1 Sodium 142.9 Potassium 3.5 L Chloride 111 H Carbon Dioxide 28 Anion Gap 4 L BUN 5 L Creatinine 0.54 Est GFR ( Amer) > 60 Est GFR (Non-Af Amer) > 60 Glucose 67 L Calcium 9.3 Magnesium 1.5 L Total Bilirubin 1.4 H AST 72 H ALT 26 Alkaline Phosphatase 154 H Total Protein 6.1 L Albumin 2.6 L 02/03/18 02/03/18 02/04/18 13:30 13:30 01:07 Creatine Kinase 76 62 Troponin I < 0.012 02/04/18 02/04/18 02/04/18 01:07 06:59 06:59 Creatine Kinase 53 Troponin I < 0.012 < 0.012 Impressions: GI Bleed Scan Nuclear Medicine 02/06/18 00:00 IMPRESSION: There is no area of abnormal tracer excretion in the distribution of large bowel which increases in intensity over time or shows antegrade or retrograde movement in the large bowel to suggest active lower GI bleeding There are few faint areas of irregular tracer presence in the proximal large bowel along the inferior margin of the liver which can be seen in an infectious process like acute diverticulitis Delayed imaging can be obtained at 24 hours, following tracer injection time, to look for any delayed intermittent bleeding in the lower GI tract. copyright 2011 [employer]- All Rights Reserved Assessment & Plan - Diagnosis (1) Epistaxis not due to trauma Is this a current diagnosis for this admission?: Yes (2) Lower GI bleeding Is this a current diagnosis for this admission?: Yes (4) Type 2 diabetes mellitus Qualifiers: Diabetes mellitus alf insulin use: with alf use Diabetes mellitus complication status: with neurologic complications Diabetes mellitus complication detail: with polyneuropathy Qualified Code(s): E11.42 - Type 2 diabetes mellitus with diabetic polyneuropathy; Z79.4 - [facility] (current) use of insulin Is this a current diagnosis for this admission?: Yes Plan: Advance diet to soft today with intent to mechanical soft tomorrow. Continue all other current medication management. (5) HTN (hypertension) Qualifiers: Hypertension type: essential hypertension Qualified Code(s): I10 - Essential (primary) hypertension Is this a current diagnosis for this admission?: Yes Plan: I will increase her Losartan to 100 mg po daily from tomorrow. She will receive extra 50 mg dose today due to elevated blood pressure. (6) HLD (hyperlipidemia) Qualifiers: Hyperlipidemia type: unspecified Qualified Code(s): E78.5 - Hyperlipidemia, unspecified Is this a current diagnosis for this admission?: Yes - Time Time Spent with patient: 25-34 minutes Medications reviewed and adjusted accordingly: Yes Anticipated discharge: Home with Homehealth Within: Other - Inpatient Certification Based on my medical assessment, after consideration of the patient's comorbidities, presenting symptoms, or acuity I expect that the services needed warrant INPATIENT care.: Yes I certify that my determination is in accordance with my understanding of Medicare's requirements for reasonable and necessary INPATIENT services [42 CFR 412.3e].: Yes Medical Necessity: Need Close Monitoring Due to Risk of Patient Decompensation, Need For IV Fluids, Need For Continuous Telemetry Monitoring, Risk of Complication if Not Cared For in Hospital Post Hospital Care: D/C Boarding Kennel Or Cattery Operator Documentation - Plan Summary Plan Summary: Continue current medication management. Advance diet to soft diet today. Surgical consult input noted.
[2018-02-15] MEDS ORDERED: LOSARTAN POTASSIUM 50 MG TABLET PO ONE (12:45)
[2018-02-15] MEDS: EZETIMIBE 10 MG TABLET PO SCH (21:30)
[2018-02-15] MEDS: METOPROLOL SUCCINATE 50 MG TAB.SR.24H PO SCH (21:30)
[2018-02-16] MEDS: NORMAL SALINE 1000 ML 1,000 ML IV PRN ×2 (02:48→16:06)
[2018-02-16] MEDS: TRAMADOL HCL 50 MG TABLET PO PRN (02:48)
[2018-02-16] MEDS: LANSOPRAZOLE 15 MG TAB.RAP.DR PO SCH (05:25)
[2018-02-16] MEDS: HUM INSULIN NPH/REG INSULIN HM 100 UNIT/1 ML 3 ML SUBCUT SCH ×2 (07:23→17:20)
[2018-02-16] MEDS: DOCUSATE SODIUM 100 MG CAPSULE PO SCH ×2 (09:04→17:52)
[2018-02-16] MEDS: LORATADINE 10 MG TABLET PO SCH (09:04)
[2018-02-16] MEDS: OXYMETAZOLINE HCL 0.05% NASAL SPRAY 15 ML BOTTLE NASL SCH ×2 (09:05→21:26)
[2018-02-16] MEDS: LOSARTAN POTASSIUM 50 MG TABLET PO SCH (09:05)
[2018-02-16] MEDS: SODIUM CHLORIDE NASAL SPRAY 44 ML NASL SCH ×2 (09:05→21:26)
--- NOTE | 2018-02-16 09:41 | PDOC PROGRESS REPORT ---
Subjective Progress Note for:: 02/16/18 Reason For Visit: GI BLEED Physical Exam Vital Signs: Temp Pulse Resp BP Pulse Ox 99.2 F 90 20 173/75 H 100 02/16/18 08:42 02/16/18 08:42 02/16/18 08:42 02/16/18 08:42 02/16/18 08:42 Intake & Output 02/15/18 02/16/18 02/17/18 06:59 06:59 06:59 Intake Total 1472 2297 Balance 1472 2297 Weight 88.6 kg 85.4 kg GI/Abdominal exam: PRESENT: soft - abd wound clean dry + bs Results Laboratory Results: 02/15/18 05:23 02/15/18 05:23 02/03/18 02/03/18 02/04/18 13:30 13:30 01:07 Creatine Kinase 76 62 Troponin I < 0.012 02/04/18 02/04/18 02/04/18 01:07 06:59 06:59 Creatine Kinase 53 Troponin I < 0.012 < 0.012 Impressions: GI Bleed Scan Nuclear Medicine 02/06/18 00:00 IMPRESSION: There is no area of abnormal tracer excretion in the distribution of large bowel which increases in intensity over time or shows antegrade or retrograde movement in the large bowel to suggest active lower GI bleeding There are few faint areas of irregular tracer presence in the proximal large bowel along the inferior margin of the liver which can be seen in an infectious process like acute diverticulitis Delayed imaging can be obtained at 24 hours, following tracer injection time, to look for any delayed intermittent bleeding in the lower GI tract. copyright 2010 [employer]- All Rights Reserved Assessment & Plan - Diagnosis (1) Anemia Qualifiers: Anemia type: other cause Other causes of anemia: acute posthemorrhagic Qualified Code(s): D62 - Acute posthemorrhagic anemia Is this a current diagnosis for this admission?: Yes (2) Colon cancer Qualifiers: Colon location: unspecified part of colon Qualified Code(s): C18.9 - Malignant neoplasm of colon, unspecified Is this a current diagnosis for this admission?: Yes (3) Epistaxis not due to trauma Is this a current diagnosis for this admission?: Yes - Plan Summary Plan Summary: pt has been stable from surgery standpoint wound healing well pt has return of bowel function no evidence of bleeding pt will need stapes removed in 2-3 days ok to f/u in surgery clinic if discharged please reconsult surgicalist for any other problems.
[2018-02-16] MEDS ORDERED: LOSARTAN POTASSIUM 50 MG TABLET PO SCH (10:00)
--- NOTE | 2018-02-16 11:27 | PDOC PROGRESS REPORT ---
Subjective Progress Note for:: 02/16/18 Subjective:: No chest pain or difficulty with breathing. No recurrent nasal bleeding. No fever or chills. Tolerating oral feeding on full liquid diet. Reason For Visit: GI BLEED Physical Exam Vital Signs: Temp Pulse Resp BP Pulse Ox 99.2 F 90 20 173/75 H 100 02/16/18 08:42 02/16/18 08:42 02/16/18 08:42 02/16/18 08:42 02/16/18 08:42 Intake & Output 02/15/18 02/16/18 02/17/18 06:59 06:59 06:59 Intake Total 1472 2297 Balance 1472 2297 Weight 88.6 kg 85.4 kg Physical Exam: General appearance: PRESENT: no acute distress, obese Head exam: PRESENT: atraumatic, normocephalic Eye exam: PRESENT: conjunctiva pink, EOMI, PERRLA. ABSENT: pallor, scleral icterus Ear exam: PRESENT: normal external ear exam Mouth exam: PRESENT: moist Teeth exam: PRESENT: poor dentition Respiratory exam: PRESENT: clear to auscultation [place], decreased breath sounds - at lung bases Cardiovascular exam: PRESENT: RRR. ABSENT: diastolic murmur, rubs, systolic murmur GI/Abdominal exam: PRESENT: normal bowel sounds, soft, nontender. Surgical site satisfactory with olivia. Neurological exam: PRESENT: alert, awake, oriented to person, oriented to place, oriented to time, oriented to situation, CN II-XII grossly intact. ABSENT: motor sensory deficit Psychiatric exam: PRESENT: appropriate affect, normal mood. ABSENT: homicidal ideation, suicidal ideation Skin exam: PRESENT: dry, warm, other - surgical site dressing okay with abdominal band in use. Results Laboratory Results: 02/15/18 05:23 02/15/18 05:23 02/03/18 02/03/18 02/04/18 13:30 13:30 01:07 Creatine Kinase 76 62 Troponin I < 0.012 02/04/18 02/04/18 02/04/18 01:07 06:59 06:59 Creatine Kinase 53 Troponin I < 0.012 < 0.012 Impressions: GI Bleed Scan Nuclear Medicine 02/06/18 00:00 IMPRESSION: There is no area of abnormal tracer excretion in the distribution of large bowel which increases in intensity over time or shows antegrade or retrograde movement in the large bowel to suggest active lower GI bleeding There are few faint areas of irregular tracer presence in the proximal large bowel along the inferior margin of the liver which can be seen in an infectious process like acute diverticulitis Delayed imaging can be obtained at 24 hours, following tracer injection time, to look for any delayed intermittent bleeding in the lower GI tract. copyright 2011 [employer]- All Rights Reserved Assessment & Plan - Diagnosis (1) Epistaxis not due to trauma Is this a current diagnosis for this admission?: Yes (2) Lower GI bleeding Is this a current diagnosis for this admission?: Yes (4) Type 2 diabetes mellitus Qualifiers: Diabetes mellitus senior care insulin use: with terminal worker use Diabetes mellitus complication status: with neurologic complications Diabetes mellitus complication detail: with polyneuropathy Qualified Code(s): E11.42 - Type 2 diabetes mellitus with diabetic polyneuropathy; Z79.4 - skilled nursing (current) use of insulin Is this a current diagnosis for this admission?: Yes (5) HTN (hypertension) Qualifiers: Hypertension type: essential hypertension Qualified Code(s): I10 - Essential (primary) hypertension Is this a current diagnosis for this admission?: Yes (6) HLD (hyperlipidemia) Qualifiers: Hyperlipidemia type: unspecified Qualified Code(s): E78.5 - Hyperlipidemia, unspecified Is this a current diagnosis for this admission?: Yes - Time Time Spent with patient: 25-34 minutes Medications reviewed and adjusted accordingly: Yes Anticipated discharge: Home with Homehealth Within: Other - Inpatient Certification Based on my medical assessment, after consideration of the patient's co morbidities, presenting symptoms, or acuity I expect that the services needed warrant INPATIENT care.: Yes I certify that my determination is in accordance with my understanding of Medicare's requirements for reasonable and necessary INPATIENT services [42 CFR 412.3e].: Yes Medical Necessity: Need Close Monitoring Due to Risk of Patient Decompensation, Need For IV Fluids, Need For Continuous Telemetry Monitoring, Need for Surgery, Risk of Complication if Not Cared For in Hospital Post Hospital Care: D/C Sewage Plant Supervisor Documentation - Plan Summary Plan Summary: Advance diet to soft consistency. Continue all other current medication management. Resume insulin therapy in view of her hyperglycemia and advance diet at this time.
[2018-02-16] MEDS: EZETIMIBE 10 MG TABLET PO SCH (21:24)
[2018-02-16] MEDS: METOPROLOL SUCCINATE 50 MG TAB.SR.24H PO SCH (21:24)
[2018-02-17] MEDS: TRAMADOL HCL 50 MG TABLET PO PRN ×3 (03:57→19:01)
[2018-02-17] MEDS: LANSOPRAZOLE 15 MG TAB.RAP.DR PO SCH (06:09)
[2018-02-17] MEDS: HUM INSULIN NPH/REG INSULIN HM 100 UNIT/1 ML 3 ML SUBCUT SCH ×2 (08:28→19:01)
[2018-02-17] MEDS: LOSARTAN POTASSIUM 50 MG TABLET PO SCH (09:23)
[2018-02-17] MEDS: LORATADINE 10 MG TABLET PO SCH (09:23)
[2018-02-17] MEDS: DOCUSATE SODIUM 100 MG CAPSULE PO SCH ×2 (09:23→19:01)
[2018-02-17 09:24] LABS: ABSOLUTE EOSINOPHILS # (AUTO) 0.1 10^3/uL (0.0-0.6); ABSOLUTE LYMPHOCYTES (AUTO) 1.4 10^3/uL (0.5-4.7); ABSOLUTE MONOCYTES (AUTO) 1.4 10^3/uL (0.1-1.4); ABSOLUTE NEUT (AUTO) 11.7 10^3/uL (1.7-8.2); BASOPHILS % (AUTO) 0.2 % (0-2); EOSINOPHILS % (AUTO) 0.7 % (0-6); HEMATOCRIT 26.1 % (36.0-47.0); HEMOGLOBIN 8.6 g/dL (12.0-15.5); LYMPHOCYTES % (AUTO) 9.6 % (13-45); MEAN CORPUSCULAR HEMOGLOBIN 30.7 pg (27.0-33.4); MEAN CORPUSCULAR VOLUME 93 fl (80-97); MONOCYTES % (AUTO) 9.4 % (3-13); PLATELET COUNT 138 10^3/uL (150-450); RED BLOOD COUNT 2.81 10^6/uL (3.72-5.28); SEGMENTED NEUTROPHILS % (AUTO) 80.1 % (42-78); TOTAL CELLS COUNTED % (AUTO) 100 %; WHITE BLOOD COUNT 14.6 10^3/uL (4.0-10.5)
[2018-02-17] MEDS: OXYMETAZOLINE HCL 0.05% NASAL SPRAY 15 ML BOTTLE NASL SCH ×2 (09:24→21:28)
[2018-02-17] MEDS: SODIUM CHLORIDE NASAL SPRAY 44 ML NASL SCH ×2 (09:25→21:29)
[2018-02-17 09:49] LABS: ALANINE AMINOTRANSFERASE 13 U/L (9-52); ALBUMIN 2.7 g/dL (3.5-5.0); ALKALINE PHOSPHATASE 163 U/L (38-126); ANION GAP 5 (5-19); ASPARTATE AMINO TRANSFERASE 30 U/L (14-36); BILIRUBIN,DIRECT 0.3 mg/dL (0.0-0.4); BILIRUBIN,TOTAL 1.5 mg/dL (0.2-1.3); BLOOD UREA NITROGEN 4 mg/dL (7-20); CALCIUM 9.6 mg/dL (8.4-10.2); CARBON DIOXIDE 30 mmol/L (22-30); CHLORIDE 107 mmol/L (98-107); GLUCOSE 192 mg/dL (75-110); POTASSIUM 3.4 mmol/L (3.6-5.0); SODIUM 141.6 mmol/L (137-145); TOTAL PROTEIN 6.6 g/dL (6.3-8.2)
--- NOTE | 2018-02-17 10:05 | PDOC PROGRESS REPORT ---
Subjective Subjective:: Patient tolerating diet, moving bowels; had some blood old per stool. Reason For Visit: GI BLEED Physical Exam Vital Signs: Temp Pulse Resp BP Pulse Ox 98.5 F 83 22 H 181/71 H 100 02/17/18 07:39 02/17/18 07:39 02/17/18 07:39 02/17/18 07:39 02/17/18 07:39 Intake & Output 02/16/18 02/17/18 02/18/18 06:59 06:59 06:59 Intake Total 2297 1169 Balance 2297 1169 Weight 85.4 kg General appearance: PRESENT: no acute distress, other - Patient a little depressed GI/Abdominal exam: PRESENT: other - Abdomen soft nontender; I have instructed elias mortensen to remove one half olivia. Results Laboratory Results: 02/17/18 09:07 02/17/18 09:07 02/17/18 02/17/18 09:07 09:07 WBC 14.6 H RBC 2.81 L Hgb 8.6 L Hct 26.1 L MCV 93 MCH 30.7 MCHC 33.0 RDW 20.0 H Plt Count 138 L Seg Neutrophils % 80.1 H Lymphocytes % 9.6 L Monocytes % 9.4 Eosinophils % 0.7 Basophils % 0.2 Absolute Neutrophils 11.7 H Absolute Lymphocytes 1.4 Absolute Monocytes 1.4 Absolute Eosinophils 0.1 Absolute Basophils 0.0 Sodium 141.6 Potassium 3.4 L Chloride 107 Carbon Dioxide 30 Anion Gap 5 BUN 4 L Creatinine 0.52 Est GFR ( Amer) > 60 Est GFR (Non-Af Amer) > 60 Glucose 192 H Calcium 9.6 Total Bilirubin 1.5 H AST 30 ALT 13 Alkaline Phosphatase 163 H Total Protein 6.6 Albumin 2.7 L 02/03/18 02/03/18 02/04/18 13:30 13:30 01:07 Creatine Kinase 76 62 Troponin I < 0.012 02/04/18 02/04/18 02/04/18 01:07 06:59 06:59 Creatine Kinase 53 Troponin I < 0.012 < 0.012 Impressions: GI Bleed Scan Nuclear Medicine 02/06/18 00:00 IMPRESSION: There is no area of abnormal tracer excretion in the distribution of large bowel which increases in intensity over time or shows antegrade or retrograde movement in the large bowel to suggest active lower GI bleeding There are few faint areas of irregular tracer presence in the proximal large bowel along the inferior margin of the liver which can be seen in an infectious process like acute diverticulitis Delayed imaging can be obtained at 24 hours, following tracer injection time, to look for any delayed intermittent bleeding in the lower GI tract. 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 Recommendations: 1. Patient can be discharged home 2. Follow-up with Dr. En[facility] surgical clinic in 1-2 weeks for complete staple removal. 3. Patient to follow-up with medical oncology for continued salvage chemotherapy
--- NOTE | 2018-02-17 12:50 | PDOC PROGRESS REPORT ---
Subjective Progress Note for:: 02/17/18 Subjective:: Patient continue to refuse her basal insulin administration. Her diet have been advance and tolerated. No fever or chills. No chest pain or difficulty with breathing. Reason For Visit: GI BLEED Physical Exam Vital Signs: Temp Pulse Resp BP Pulse Ox 98.4 F 92 18 170/68 H 100 02/17/18 11:08 02/17/18 11:08 02/17/18 11:08 02/17/18 11:08 02/17/18 11:08 Intake & Output 02/16/18 02/17/18 02/18/18 06:59 06:59 06:59 Intake Total 2297 1169 Balance 2297 1169 Weight 85.4 kg Physical Exam: General appearance: PRESENT: no acute distress, obese Head exam: PRESENT: atraumatic, normocephalic Eye exam: PRESENT: conjunctiva pink, EOMI, PERRLA. ABSENT: pallor, scleral icterus Ear exam: PRESENT: normal external ear exam Mouth exam: PRESENT: moist Teeth exam: PRESENT: poor dentition Respiratory exam: PRESENT: clear to auscultation [place], decreased breath sounds - at lung bases Cardiovascular exam: PRESENT: RRR. ABSENT: diastolic murmur, rubs, systolic murmur GI/Abdominal exam: PRESENT: normal bowel sounds, soft, nontender. Surgical site satisfactory with olivia. Neurological exam: PRESENT: alert, awake, oriented to person, oriented to place, oriented to time, oriented to situation, CN II-XII grossly intact. ABSENT: motor sensory deficit Psychiatric exam: PRESENT: appropriate affect, normal mood. ABSENT: homicidal ideation, suicidal ideation Skin exam: PRESENT: dry, warm, other - surgical site dressing okay with abdominal band in use. Results Laboratory Results: 02/17/18 09:07 02/17/18 09:07 02/17/18 02/17/18 09:07 09:07 WBC 14.6 H RBC 2.81 L Hgb 8.6 L Hct 26.1 L MCV 93 MCH 30.7 MCHC 33.0 RDW 20.0 H Plt Count 138 L Seg Neutrophils % 80.1 H Lymphocytes % 9.6 L Monocytes % 9.4 Eosinophils % 0.7 Basophils % 0.2 Absolute Neutrophils 11.7 H Absolute Lymphocytes 1.4 Absolute Monocytes 1.4 Absolute Eosinophils 0.1 Absolute Basophils 0.0 Sodium 141.6 Potassium 3.4 L Chloride 107 Carbon Dioxide 30 Anion Gap 5 BUN 4 L Creatinine 0.52 Est GFR ( Amer) > 60 Est GFR (Non-Af Amer) > 60 Glucose 192 H Calcium 9.6 Total Bilirubin 1.5 H AST 30 ALT 13 Alkaline Phosphatase 163 H Total Protein 6.6 Albumin 2.7 L 02/03/18 02/03/18 02/04/18 13:30 13:30 01:07 Creatine Kinase 76 62 Troponin I < 0.012 02/04/18 02/04/18 02/04/18 01:07 06:59 06:59 Creatine Kinase 53 Troponin I < 0.012 < 0.012 Impressions: GI Bleed Scan Nuclear Medicine 02/06/18 00:00 IMPRESSION: There is no area of abnormal tracer excretion in the distribution of large bowel which increases in intensity over time or shows antegrade or retrograde movement in the large bowel to suggest active lower GI bleeding There are few faint areas of irregular tracer presence in the proximal large bowel along the inferior margin of the liver which can be seen in an infectious process like acute diverticulitis Delayed imaging can be obtained at 24 hours, following tracer injection time, to look for any delayed intermittent bleeding in the lower GI tract. copyright 2010 [employer]- All Rights Reserved Assessment & Plan - Diagnosis (1) Epistaxis not due to trauma Is this a current diagnosis for this admission?: Yes (2) Lower GI bleeding Is this a current diagnosis for this admission?: Yes (4) Type 2 diabetes mellitus Qualifiers: Diabetes mellitus ad terminal makeup operator insulin use: with residential use Diabetes mellitus complication status: with neurologic complications Diabetes mellitus complication detail: with polyneuropathy Qualified Code(s): E11.42 - Type 2 diabetes mellitus with diabetic polyneuropathy; Z79.4 - [facility] (current) use of insulin Is this a current diagnosis for this admission?: Yes (5) HTN (hypertension) Qualifiers: Hypertension type: essential hypertension Qualified Code(s): I10 - Essential (primary) hypertension Is this a current diagnosis for this admission?: Yes (6) HLD (hyperlipidemia) Qualifiers: Hyperlipidemia type: unspecified Qualified Code(s): E78.5 - Hyperlipidemia, unspecified Is this a current diagnosis for this admission?: Yes - Time Time Spent with patient: 25-34 minutes Medications reviewed and adjusted accordingly: Yes Anticipated discharge: Home with Homehealth Within: Other - Inpatient Certification Based on my medical assessment, after consideration of the patient's comorbidities, presenting symptoms, or acuity I expect that the services needed warrant INPATIENT care.: Yes I certify that my determination is in accordance with my understanding of Medicare's requirements for reasonable and necessary INPATIENT services [42 CFR 412.3e].: Yes Medical Necessity: Need Close Monitoring Due to Risk of Patient Decompensation, Need For Continuous Telemetry Monitoring, Risk of Complication if Not Cared For in Hospital Post Hospital Care: D/C Black Studies Professor Documentation - Plan Summary Plan Summary: Continue current medication management. Emphasized need for medication compliance. Possible discharge home tomorrow with hospital bed and SECURITY SYSTEMS SALES REPRESENTATIVE services.
[2018-02-17] MEDS: INSULIN LISPRO 100 UNIT/ML 3 ML VIAL SUBCUT PRN (15:32)
[2018-02-17] MEDS: METOPROLOL SUCCINATE 50 MG TAB.SR.24H PO SCH (21:28)
[2018-02-17] MEDS: EZETIMIBE 10 MG TABLET PO SCH (21:29)
[2018-02-18] MEDS: LANSOPRAZOLE 15 MG TAB.RAP.DR PO SCH (05:38)
[2018-02-18] MEDS: GLUCAGON,HUMAN RECOMB 1 MG INJ IM PRN (06:44)
[2018-02-18] MEDS: ACETAMINOPHEN 325 MG TABLET PO PRN ×2 (08:35→15:25)
[2018-02-18 09:19] LABS: HEMATOCRIT 26.4 % (36.0-47.0); HEMOGLOBIN 8.6 g/dL (12.0-15.5); MEAN CORPUSCULAR HEMOGLOBIN 30.6 pg (27.0-33.4); MEAN CORPUSCULAR HGB CONC 32.8 g/dL (32.0-36.0); MEAN CORPUSCULAR VOLUME 93 fl (80-97); PLATELET COUNT 139 10^3/uL (150-450); RED BLOOD COUNT 2.83 10^6/uL (3.72-5.28); RED CELL DISTRIBUTION WIDTH 19.5 % (11.5-14.0); WHITE BLOOD COUNT 20.6 10^3/uL (4.0-10.5)
--- NOTE | 2018-02-18 09:21 | RADIOLOGY REPORT (SQ) ---
EXAM DESCRIPTION: CHEST SINGLE VIEW COMPLETED DATE/TIME: 02/18/2018 9:11 am REASON FOR STUDY: Fever COMPARISON: 11/05/2017. NUMBER OF VIEWS: One view. TECHNIQUE: Single frontal radiographic view of the chest acquired. LIMITATIONS: None. FINDINGS: LUNGS AND PLEURA: No opacities, masses or pneumothorax. No pleural effusion. MEDIASTINUM AND HILAR STRUCTURES: No masses. Contour normal. HEART AND VASCULAR STRUCTURES: Heart enlarged without failure. Normal vasculature. BONES: No acute findings. HARDWARE: Vascular port. OTHER: No other significant finding. IMPRESSION: STABLE CARDIOMEGALY. NO ACUTE FINDINGS. TECHNICAL DOCUMENTATION: JOB ID: [id number] [employer]- All Rights Reserved Reading location - IP/workstation name: [email or web address]
[2018-02-18 09:35] LABS: ALANINE AMINOTRANSFERASE 10 U/L (9-52); ALBUMIN 2.7 g/dL (3.5-5.0); ALKALINE PHOSPHATASE 172 U/L (38-126); ANION GAP 8 (5-19); ASPARTATE AMINO TRANSFERASE 39 U/L (14-36); BILIRUBIN,DIRECT 0.3 mg/dL (0.0-0.4); BILIRUBIN,TOTAL 1.3 mg/dL (0.2-1.3); BLOOD UREA NITROGEN 5 mg/dL (7-20); CALCIUM 9.5 mg/dL (8.4-10.2); CARBON DIOXIDE 29 mmol/L (22-30); CHLORIDE 103 mmol/L (98-107); GLUCOSE 119 mg/dL (75-110); POTASSIUM 3.2 mmol/L (3.6-5.0); SODIUM 139.5 mmol/L (137-145); TOTAL PROTEIN 6.6 g/dL (6.3-8.2)
[2018-02-18 09:57] LABS: ABSOLUTE LYMPHOCYTES# (MANUAL) 0.4 10^3/uL (0.5-4.7); ABSOLUTE MONOCYTES # (MANUAL) 0.4 10^3/uL (0.1-1.4); ABSOLUTE NEUTROPHILS# (MANUAL) 19.8 10^3/uL (1.7-8.2); BAND NEUTROPHILS % (MANUAL) 2 % (3-5); BASOPHILS % (MANUAL) 0 % (0-2); EOSINOPHILS % (MANUAL) 0 % (0-6); LYMPHOCYTES % (MANUAL) 2 % (13-45); MONOCYTES % (MANUAL) 2 % (3-13); SEGMENTED NEUTROPHILS % (MAN) 94 % (42-78); TOTAL CELLS COUNTED 100
[2018-02-18 10:00] LABS: ANISOCYTOSIS 2+; PLATELET COMMENT DECREASED; POLYCHROMASIA SLIGHT
[2018-02-18] MEDS: HUM INSULIN NPH/REG INSULIN HM 100 UNIT/1 ML 3 ML SUBCUT SCH (10:10)
[2018-02-18] MEDS: OXYMETAZOLINE HCL 0.05% NASAL SPRAY 15 ML BOTTLE NASL SCH ×2 (10:12→21:43)
[2018-02-18] MEDS: PIPERACILLIN SODIUM/TAZOBACTAM 3.375 GM in NORMAL SALINE 100 ML IV SCH ×3 (10:15→21:45)
[2018-02-18] MEDS: LOSARTAN POTASSIUM 50 MG TABLET PO SCH (10:16)
[2018-02-18] MEDS: LORATADINE 10 MG TABLET PO SCH (10:16)
[2018-02-18] MEDS: NORMAL SALINE 1000 ML 1,000 ML IV PRN (10:16)
[2018-02-18] MEDS: DOCUSATE SODIUM 100 MG CAPSULE PO SCH ×2 (10:16→18:26)
[2018-02-18] MEDS: SODIUM CHLORIDE NASAL SPRAY 44 ML NASL SCH ×2 (15:25→21:44)
--- NOTE | 2018-02-18 17:24 | PDOC PROGRESS REPORT ---
Subjective Progress Note for:: 02/18/18 Subjective:: Patient's discharge is delayed due to development of fever with temperature at 101.9F this morning. Also, her accuchek was 60 mg/dL. She received oral resuscitation with IM Glucagon for her hypoglycemia. No chest pain or difficulty with breathing. No nausea or vomiting. She denied any significant abdominal pain. Reason For Visit: GI BLEED Physical Exam Vital Signs: Temp Pulse Resp BP Pulse Ox 101.9 F H 88 16 173/58 H 97 02/18/18 07:43 02/18/18 07:43 02/18/18 07:43 02/18/18 07:43 02/18/18 07:43 Intake & Output 02/17/18 02/18/18 02/19/18 06:59 06:59 06:59 Intake Total 1169 717 Balance 1169 717 Weight 85.4 kg General appearance: PRESENT: no acute distress Head exam: PRESENT: atraumatic, normocephalic Eye exam: PRESENT: conjunctiva pink, EOMI, PERRLA. ABSENT: scleral icterus Ear exam: PRESENT: normal external ear exam Mouth exam: PRESENT: moist Teeth exam: PRESENT: dental caries, poor dentation Respiratory exam: PRESENT: clear to auscultation [place], decreased breath sounds - at lung bases Cardiovascular exam: PRESENT: RRR. ABSENT: diastolic murmur, rubs, systolic murmur Vascular exam: ABSENT: pallor GI/Abdominal exam: PRESENT: normal bowel sounds, soft, tenderness - around surgical wound site with multiple olivia in situ.. ABSENT: distended, guarding, mass, organolmegaly, rebound Extremities exam: ABSENT: pedal edema Neurological exam: PRESENT: alert, awake, oriented to person, oriented to place, oriented to time, oriented to situation, CN II-XII grossly intact. ABSENT: motor sensory deficit Psychiatric exam: PRESENT: appropriate affect, normal mood. ABSENT: homicidal ideation, suicidal ideation Skin exam: PRESENT: dry, warm Results Laboratory Results: 02/17/18 09:07 02/17/18 09:07 02/17/18 02/17/18 09:07 09:07 WBC 14.6 H RBC 2.81 L Hgb 8.6 L Hct 26.1 L MCV 93 MCH 30.7 MCHC 33.0 RDW 20.0 H Plt Count 138 L Seg Neutrophils % 80.1 H Lymphocytes % 9.6 L Monocytes % 9.4 Eosinophils % 0.7 Basophils % 0.2 Absolute Neutrophils 11.7 H Absolute Lymphocytes 1.4 Absolute Monocytes 1.4 Absolute Eosinophils 0.1 Absolute Basophils 0.0 Sodium 141.6 Potassium 3.4 L Chloride 107 Carbon Dioxide 30 Anion Gap 5 BUN 4 L Creatinine 0.52 Est GFR ( Amer) > 60 Est GFR (Non-Af Amer) > 60 Glucose 192 H Calcium 9.6 Total Bilirubin 1.5 H AST 30 ALT 13 Alkaline Phosphatase 163 H Total Protein 6.6 Albumin 2.7 L 02/03/18 02/03/18 02/04/18 13:30 13:30 01:07 Creatine Kinase 76 62 Troponin I < 0.012 02/04/18 02/04/18 02/04/18 01:07 06:59 06:59 Creatine Kinase 53 Troponin I < 0.012 < 0.012 Impressions: GI Bleed Scan Nuclear Medicine 02/06/18 00:00 IMPRESSION: There is no area of abnormal tracer excretion in the distribution of large bowel which increases in intensity over time or shows antegrade or retrograde movement in the large bowel to suggest active lower GI bleeding There are few faint areas of irregular tracer presence in the proximal large bowel along the inferior margin of the liver which can be seen in an infectious process like acute diverticulitis Delayed imaging can be obtained at 24 hours, following tracer injection time, to look for any delayed intermittent bleeding in the lower GI tract. 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 Is this a current diagnosis for this admission?: Yes (5) HTN (hypertension) Qualifiers: Hypertension type: essential hypertension Qualified Code(s): I10 - Essential (primary) hypertension Is this a current diagnosis for this admission?: Yes (6) HLD (hyperlipidemia) Qualifiers: Hyperlipidemia type: unspecified Qualified Code(s): E78.5 - Hyperlipidemia, unspecified Is this a current diagnosis for this admission?: Yes (7) Fever of unknown origin (FUO) Is this a current diagnosis for this admission?: Yes Plan: Obtain sepsis workup in view of her recent surgery, associated abdominal pain, and leukocytosis. Start on empiric antibiotic coverage with Zosyn for possible intra-abdominal pathology. 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 - Time Time Spent with patient: 25-34 minutes Medications reviewed and adjusted accordingly: Yes Anticipated discharge: Home with Homehealth Within: Other - Inpatient Certification Based on my medical assessment, after consideration of the patient's comorbidities, presenting symptoms, or acuity I expect that the services needed warrant INPATIENT care.: Yes I certify that my determination is in accordance with my understanding of Medicare's requirements for reasonable and necessary INPATIENT services [42 CFR 412.3e].: Yes Medical Necessity: Need Close Monitoring Due to Risk of Patient Decompensation, Need For IV Fluids, Need For Continuous Telemetry Monitoring, Need for IV Antibiotics, Need for Surgery, Risk of Complication if Not Cared For in Hospital 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
[2018-02-18 17:57] LABS: APPEARANCE,URINE CLEAR; BILIRUBIN,URINE NEGATIVE (NEGATIVE); COLOR,URINE YELLOW; GLUCOSE, URINE NEGATIVE (NEGATIVE); KETONES,URINE TRACE mg/dL (NEGATIVE); LEUKOCYTE ESTERASE,URINE TRACE (NEGATIVE); NITRITE,URINE NEGATIVE (NEGATIVE); PROTEIN,URINE 100 mg/dL (NEGATIVE); URINE SPECIFIC GRAVITY 1.027
[2018-02-18] MEDS: AMLODIPINE BESYLATE 5 MG TABLET PO SCH (18:26)
[2018-02-18] MEDS: TRAMADOL HCL 50 MG TABLET PO PRN (19:11)
[2018-02-18] MEDS: ENOXAPARIN SODIUM INJ 40 MG/0.4 ML DISP.SYRIN SUBCUT SCH (19:12)
[2018-02-18] MEDS: POTASSIUM CHLORIDE 10 MEQ CAPSULE.ER PO SCH ×2 (19:12→21:42)
[2018-02-18] MEDS: EZETIMIBE 10 MG TABLET PO SCH (21:42)
[2018-02-18] MEDS: METOPROLOL SUCCINATE 50 MG TAB.SR.24H PO SCH (21:43)
[2018-02-19] MEDS: PIPERACILLIN SODIUM/TAZOBACTAM 3.375 GM in NORMAL SALINE 100 ML IV SCH ×4 (02:43→21:00)
[2018-02-19] MEDS: LANSOPRAZOLE 15 MG TAB.RAP.DR PO SCH (05:24)
[2018-02-19 06:04] LABS: ABSOLUTE EOSINOPHILS # (AUTO) 0.1 10^3/uL (0.0-0.6); ABSOLUTE LYMPHOCYTES (AUTO) 0.8 10^3/uL (0.5-4.7); ABSOLUTE MONOCYTES (AUTO) 1.2 10^3/uL (0.1-1.4); ABSOLUTE NEUT (AUTO) 12.1 10^3/uL (1.7-8.2); BASOPHILS % (AUTO) 0.2 % (0-2); EOSINOPHILS % (AUTO) 0.5 % (0-6); HEMATOCRIT 22.8 % (36.0-47.0); LYMPHOCYTES % (AUTO) 5.9 % (13-45); MEAN CORPUSCULAR HEMOGLOBIN 30.3 pg (27.0-33.4); MEAN CORPUSCULAR HGB CONC 32.4 g/dL (32.0-36.0); MEAN CORPUSCULAR VOLUME 93 fl (80-97); MONOCYTES % (AUTO) 8.3 % (3-13); PLATELET COUNT 117 10^3/uL (150-450); RED BLOOD COUNT 2.44 10^6/uL (3.72-5.28); RED CELL DISTRIBUTION WIDTH 19.6 % (11.5-14.0); SEGMENTED NEUTROPHILS % (AUTO) 85.1 % (42-78); TOTAL CELLS COUNTED % (AUTO) 100 %; WHITE BLOOD COUNT 14.3 10^3/uL (4.0-10.5)
[2018-02-19 06:14] LABS: HEMOGLOBIN 7.4 g/dL (12.0-15.5)
[2018-02-19 06:20] LABS: BLOOD UREA NITROGEN 7 mg/dL (7-20); CALCIUM 8.9 mg/dL (8.4-10.2); CARBON DIOXIDE 29 mmol/L (22-30); CHLORIDE 107 mmol/L (98-107); GLUCOSE 157 mg/dL (75-110); SODIUM 139.7 mmol/L (137-145)
[2018-02-19 06:24] LABS: ANION GAP 5 (5-19)
[2018-02-19] MEDS: HUM INSULIN NPH/REG INSULIN HM 100 UNIT/1 ML 3 ML SUBCUT SCH (07:37)
[2018-02-19] MEDS: OXYMETAZOLINE HCL 0.05% NASAL SPRAY 15 ML BOTTLE NASL SCH ×2 (10:54→21:01)
[2018-02-19] MEDS: DOCUSATE SODIUM 100 MG CAPSULE PO SCH ×2 (10:57→17:49)
[2018-02-19] MEDS: AMLODIPINE BESYLATE 5 MG TABLET PO SCH ×2 (10:57→21:03)
[2018-02-19] MEDS: LORATADINE 10 MG TABLET PO SCH (10:57)
[2018-02-19] MEDS: LOSARTAN POTASSIUM 50 MG TABLET PO SCH (10:57)
[2018-02-19] MEDS: SODIUM CHLORIDE NASAL SPRAY 44 ML NASL SCH ×2 (10:57→21:01)
[2018-02-19] MEDS: ENOXAPARIN SODIUM INJ 40 MG/0.4 ML DISP.SYRIN SUBCUT SCH (10:58)
[2018-02-19] MEDS: TRAMADOL HCL 50 MG TABLET PO PRN (13:48)
--- NOTE | 2018-02-19 17:49 | PDOC PROGRESS REPORT ---
Subjective Progress Note for:: 02/19/18 Subjective:: Patient denied any chest pain or difficulty with breathing. No recurrent fever or chills. Appetite and p.o intake remain a challenge. no nausea, vomiting or abdominal pain. Reason For Visit: GI BLEED Physical Exam Vital Signs: Temp Pulse Resp BP Pulse Ox 98.7 F 85 16 159/71 H 100 02/19/18 03:33 02/19/18 03:33 02/19/18 03:33 02/19/18 03:33 02/19/18 03:33 Intake & Output 02/18/18 02/19/18 02/20/18 06:59 06:59 06:59 Intake Total 717 991 Output Total 200 Balance 717 791 Weight 85.4 kg 85.4 kg Physical Exam: General appearance: PRESENT: no acute distress Head exam: PRESENT: atraumatic, normocephalic Eye exam: PRESENT: conjunctiva pink, EOMI, PERRLA. ABSENT: pallor, scleral icterus Ear exam: PRESENT: normal external ear exam Mouth exam: PRESENT: moist Teeth exam: PRESENT: dental caries, poor dentition Respiratory exam: PRESENT: clear to auscultation [place], decreased breath sounds - at lung bases Cardiovascular exam: PRESENT: RRR. ABSENT: diastolic murmur, rubs, systolic murmur GI/Abdominal exam: PRESENT: normal bowel sounds, soft, less tenderness - around surgical wound site with multiple olivia in situ. ABSENT: distended, guarding, mass, organomegaly, rebound Extremities exam: ABSENT: pedal edema Neurological exam: PRESENT: alert, awake, oriented to person, oriented to place, oriented to time, oriented to situation, CN II-XII grossly intact. ABSENT: motor sensory deficit Psychiatric exam: PRESENT: appropriate affect, normal mood. ABSENT: homicidal ideation, suicidal ideation Skin exam: PRESENT: dry, warm Results Laboratory Results: 02/19/18 04:49 02/19/18 04:49 02/18/18 02/18/18 02/18/18 08:45 08:45 08:45 WBC 20.6 H RBC 2.83 L Hgb 8.6 L Hct 26.4 L MCV 93 MCH 30.6 MCHC 32.8 RDW 19.5 H Plt Count 139 L Seg Neutrophils % Not Reportable Lymphocytes % Not Reportable Monocytes % Not Reportable Eosinophils % Not Reportable Basophils % Not Reportable Absolute Neutrophils Not Reportable Absolute Lymphocytes Not Reportable Absolute Monocytes Not Reportable Absolute Eosinophils Not Reportable Absolute Basophils Not Reportable Sodium 139.5 Potassium 3.2 L Chloride 103 Carbon Dioxide 29 Anion Gap 8 BUN 5 L Creatinine 0.53 Est GFR ( Amer) > 60 Est GFR (Non-Af Amer) > 60 Glucose 119 H Calcium 9.5 Magnesium 1.6 Total Bilirubin 1.3 AST 39 H ALT 10 Alkaline Phosphatase 172 H Total Protein 6.6 Albumin 2.7 L Urine Color Urine Appearance Urine pH Ur Specific Badger Urine Protein Urine Glucose (UA) Urine Ketones Urine Blood Urine Nitrite Ur Leukocyte Esterase Urine WBC (Auto) Urine RBC (Auto) 02/18/18 02/19/18 02/19/18 17:16 04:49 04:49 WBC 14.3 H RBC 2.44 L Hgb 7.4 L Hct 22.8 L MCV 93 MCH 30.3 MCHC 32.4 RDW 19.6 H Plt Count 117 L Seg Neutrophils % 85.1 H Lymphocytes % 5.9 L Monocytes % 8.3 Eosinophils % 0.5 Basophils % 0.2 Absolute Neutrophils 12.1 H Absolute Lymphocytes 0.8 Absolute Monocytes 1.2 Absolute Eosinophils 0.1 Absolute Basophils 0.0 Sodium 139.7 Potassium 4.0 Chloride 107 Carbon Dioxide 29 Anion Gap 5 BUN 7 Creatinine 0.53 Est GFR ( Amer) > 60 Est GFR (Non-Af Amer) > 60 Glucose 157 H Calcium 8.9 Magnesium Total Bilirubin AST ALT Alkaline Phosphatase Total Protein Albumin Urine Color YELLOW Urine Appearance CLEAR Urine pH 5.0 Ur Specific Badger 1.027 Urine Protein 100 H Urine Glucose (UA) NEGATIVE Urine Ketones TRACE H Urine Blood NEGATIVE Urine Nitrite NEGATIVE Ur Leukocyte Esterase TRACE H Urine WBC (Auto) 10 Urine RBC (Auto) 3 02/03/18 02/03/18 02/04/18 13:30 13:30 01:07 Creatine Kinase 76 62 Troponin I < 0.012 02/04/18 02/04/18 02/04/18 01:07 06:59 06:59 Creatine Kinase 53 Troponin I < 0.012 < 0.012 Impressions: GI Bleed Scan Nuclear Medicine 02/06/18 00:00 IMPRESSION: There is no area of abnormal tracer excretion in the distribution of large bowel which increases in intensity over time or shows antegrade or retrograde movement in the large bowel to suggest active lower GI bleeding There are few faint areas of irregular tracer presence in the proximal large bowel along the inferior margin of the liver which can be seen in an infectious process like acute diverticulitis Delayed imaging can be obtained at 24 hours, following tracer injection time, to look for any delayed intermittent bleeding in the lower GI tract. copyright 2010 [employer]- All Rights Reserved Chest X-Ray 02/18/18 00:00 IMPRESSION: STABLE CARDIOMEGALY. NO ACUTE FINDINGS. Assessment & Plan - Diagnosis (1) Epistaxis not due to trauma Is this a current diagnosis for this admission?: Yes (2) Lower GI bleeding Is this a current diagnosis for this admission?: Yes (4) Type 2 diabetes mellitus Qualifiers: Diabetes mellitus termite helper insulin use: with fdc use Diabetes mellitus complication status: with neurologic complications Diabetes mellitus complication detail: with polyneuropathy Qualified Code(s): E11.42 - Type 2 diabetes mellitus with diabetic polyneuropathy; Z79.4 - alf (current) use of insulin Is this a current diagnosis for this admission?: Yes (5) HTN (hypertension) Qualifiers: Hypertension type: essential hypertension Qualified Code(s): I10 - Essential (primary) hypertension Is this a current diagnosis for this admission?: Yes (6) HLD (hyperlipidemia) Qualifiers: Hyperlipidemia type: unspecified Qualified Code(s): E78.5 - Hyperlipidemia, unspecified Is this a current diagnosis for this admission?: Yes (7) Fever of unknown origin (FUO) Is this a current diagnosis for this admission?: Yes (8) Hypoglycemia associated with diabetes Is this a current diagnosis for this admission?: Yes - Time Time Spent with patient: 25-34 minutes Medications reviewed and adjusted accordingly: Yes Anticipated discharge: Home with Homehealth Within: Other - Inpatient Certification Based on my medical assessment, after consideration of the patient's comorbidities, presenting symptoms, or acuity I expect that the services needed warrant INPATIENT care.: Yes I certify that my determination is in accordance with my understanding of Medicare's requirements for reasonable and necessary INPATIENT services [42 CFR 412.3e].: Yes Medical Necessity: Need Close Monitoring Due to Risk of Patient Decompensation, Need For IV Fluids, Need For Continuous Telemetry Monitoring, Need for IV Antibiotics, Need for Surgery, Risk of Complication if Not Cared For in Hospital 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 Blood culture is growing gram negative kimberly in 1 bottle set. Maintain on all other current medication management. Patient will be transfused 2 units PRBC today due to significant drop in her hemoglobin. she denied any nasal or lower GI bleed.
[2018-02-19] MEDS: ACETAMINOPHEN 325 MG TABLET PO PRN (18:13)
[2018-02-19] MEDS: INSULIN LISPRO 100 UNIT/ML 3 ML VIAL SUBCUT PRN ×2 (19:07→22:02)
[2018-02-19] MEDS ORDERED: FUROSEMIDE 20 MG TABLET PO ONE (20:15)
[2018-02-19] MEDS ORDERED: FUROSEMIDE INJ/PF 20 MG/2 ML SDV IV ONE (20:30)
[2018-02-19] MEDS: METOPROLOL SUCCINATE 50 MG TAB.SR.24H PO SCH (21:01)
[2018-02-19] MEDS: EZETIMIBE 10 MG TABLET PO SCH (21:01)
[2018-02-20] MEDS: PIPERACILLIN SODIUM/TAZOBACTAM 3.375 GM in NORMAL SALINE 100 ML IV SCH ×4 (03:13→23:17)
[2018-02-20] MEDS: LANSOPRAZOLE 15 MG TAB.RAP.DR PO SCH (05:15)
[2018-02-20] MEDS: NORMAL SALINE 1000 ML 1,000 ML IV PRN (05:18)
[2018-02-20] MEDS: HUM INSULIN NPH/REG INSULIN HM 100 UNIT/1 ML 3 ML SUBCUT SCH (09:05)
[2018-02-20] MEDS: OXYMETAZOLINE HCL 0.05% NASAL SPRAY 15 ML BOTTLE NASL SCH ×2 (09:23→23:08)
[2018-02-20] MEDS: LOSARTAN POTASSIUM 50 MG TABLET PO SCH (09:35)
[2018-02-20] MEDS: LORATADINE 10 MG TABLET PO SCH (09:35)
[2018-02-20] MEDS: AMLODIPINE BESYLATE 5 MG TABLET PO SCH ×2 (09:35→23:17)
[2018-02-20] MEDS: DOCUSATE SODIUM 100 MG CAPSULE PO SCH ×2 (09:35→17:04)
[2018-02-20] MEDS: ENOXAPARIN SODIUM INJ 40 MG/0.4 ML DISP.SYRIN SUBCUT SCH (09:36)
[2018-02-20] MEDS: SODIUM CHLORIDE NASAL SPRAY 44 ML NASL SCH ×2 (09:38→23:08)
[2018-02-20] MEDS: INSULIN LISPRO 100 UNIT/ML 3 ML VIAL SUBCUT PRN ×2 (12:07→16:32)
[2018-02-20] MEDS: TRAMADOL HCL 50 MG TABLET PO PRN (16:37)
--- NOTE | 2018-02-20 18:39 | PDOC PROGRESS REPORT ---
Subjective Progress Note for:: 02/20/18 Subjective:: Patient denied any chest pain or difficulty with breathing. No recurrent fever or chills. No nausea, vomiting or abdominal pain. She reported some improvement in her food intake. Remain on IV Zosyn therapy. Blood culture grew beta lactamase positive Bacteroides Fragilis. Patient was transfused 2 units PRBC since last clinical evaluation. Reason For Visit: GI BLEED Physical Exam Vital Signs: Temp Pulse Resp BP Pulse Ox 98.2 F 84 20 170/68 H 100 02/20/18 16:00 02/20/18 16:00 02/20/18 16:00 02/20/18 16:00 02/20/18 16:00 Intake & Output 02/19/18 02/20/18 02/21/18 06:59 06:59 06:59 Intake Total 1990 1693 466 Output Total 200 300 625 Balance 1791 1393 -159 Weight 85.4 kg 85.4 kg Physical Exam: General appearance: PRESENT: no acute distress Head exam: PRESENT: atraumatic, normocephalic Eye exam: PRESENT: conjunctiva pink, EOMI, PERRLA. ABSENT: pallor, scleral icterus Ear exam: PRESENT: normal external ear exam Mouth exam: PRESENT: moist Teeth exam: PRESENT: dental caries, poor dentition Respiratory exam: PRESENT: clear to auscultation [place], decreased breath sounds - at lung bases Cardiovascular exam: PRESENT: RRR. ABSENT: diastolic murmur, rubs, systolic murmur GI/Abdominal exam: PRESENT: normal bowel sounds, soft, less tenderness - around surgical wound site with multiple olivia in situ. ABSENT: distended, guarding, mass, organomegaly, rebound Extremities exam: ABSENT: pedal edema Neurological exam: PRESENT: alert, awake, oriented to person, oriented to place, oriented to time, oriented to situation, CN II-XII grossly intact. ABSENT: motor sensory deficit Psychiatric exam: PRESENT: appropriate affect, normal mood. ABSENT: homicidal ideation, suicidal ideation Skin exam: PRESENT: dry, warm Results Laboratory Results: 02/19/18 04:49 02/19/18 04:49 02/19/18 10:39 Blood Type A POSITIVE Antibody Screen NEGATIVE 02/18/18 08:45 Blood Blood Culture - Final Bacteroides Fragilis Group 12/24/18 12/24/18 12/25/18 13:30 13:30 01:07 Creatine Kinase 76 62 Troponin I < 0.012 02/04/18 02/04/18 02/04/18 01:07 06:59 06:59 Creatine Kinase 53 Troponin I < 0.012 < 0.012 Impressions: GI Bleed Scan Nuclear Medicine 02/06/18 00:00 IMPRESSION: There is no area of abnormal tracer excretion in the distribution of large bowel which increases in intensity over time or shows antegrade or retrograde movement in the large bowel to suggest active lower GI bleeding There are few faint areas of irregular tracer presence in the proximal large bowel along the inferior margin of the liver which can be seen in an infectious process like acute diverticulitis Delayed imaging can be obtained at 24 hours, following tracer injection time, to look for any delayed intermittent bleeding in the lower GI tract. copyright 2011 [employer]- All Rights Reserved Chest X-Ray 02/18/18 00:00 IMPRESSION: STABLE CARDIOMEGALY. NO ACUTE FINDINGS. 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 Is this a current diagnosis for this admission?: Yes (5) HTN (hypertension) Qualifiers: Hypertension type: essential hypertension Qualified Code(s): I10 - Essential (primary) hypertension Is this a current diagnosis for this admission?: Yes (6) HLD (hyperlipidemia) Qualifiers: Hyperlipidemia type: unspecified Qualified Code(s): E78.5 - Hyperlipidemia, unspecified Is this a current diagnosis for this admission?: Yes (7) Fever of unknown origin (FUO) Is this a current diagnosis for this admission?: Yes (8) Hypoglycemia associated with diabetes Is this a current diagnosis for this admission?: Yes - Time Time Spent with patient: 25-34 minutes Medications reviewed and adjusted accordingly: Yes Anticipated discharge: Home with Homehealth Within: Other - Inpatient Certification Based on my medical assessment, after consideration of the patient's comorbidities, presenting symptoms, or acuity I expect that the services needed warrant INPATIENT care.: Yes I certify that my determination is in accordance with my understanding of Medicare's requirements for reasonable and necessary INPATIENT services [42 CFR 412.3e].: Yes Medical Necessity: Need Close Monitoring Due to Risk of Patient Decompensation, Need For IV Fluids, Need For Continuous Telemetry Monitoring, Need for IV Antibiotics, Risk of Complication if Not Cared For in Hospital 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 Obtain CBC with diff and BMP. Saline lock IV access. Continue all other current medication management.
[2018-02-20] MEDS: HYDROCHLOROTHIAZIDE 25 MG TABLET PO SCH (23:16)
[2018-02-20] MEDS: EZETIMIBE 10 MG TABLET PO SCH (23:17)
[2018-02-20] MEDS: METOPROLOL SUCCINATE 50 MG TAB.SR.24H PO SCH (23:17)
[2018-02-21] MEDS: ACETAMINOPHEN 325 MG TABLET PO PRN (03:43)
[2018-02-21] MEDS: TRAMADOL HCL 50 MG TABLET PO PRN (03:44)
[2018-02-21] MEDS: LANSOPRAZOLE 15 MG TAB.RAP.DR PO SCH (05:18)
[2018-02-21] MEDS: PIPERACILLIN SODIUM/TAZOBACTAM 3.375 GM in NORMAL SALINE 100 ML IV SCH ×3 (05:20→14:18)
[2018-02-21 06:26] LABS: ABSOLUTE EOSINOPHILS # (AUTO) 0.1 10^3/uL (0.0-0.6); ABSOLUTE LYMPHOCYTES (AUTO) 1.4 10^3/uL (0.5-4.7); ABSOLUTE MONOCYTES (AUTO) 1.2 10^3/uL (0.1-1.4); ABSOLUTE NEUT (AUTO) 10.4 10^3/uL (1.7-8.2); BASOPHILS % (AUTO) 0.3 % (0-2); EOSINOPHILS % (AUTO) 1.1 % (0-6); HEMATOCRIT 29.6 % (36.0-47.0); LYMPHOCYTES % (AUTO) 10.3 % (13-45); MEAN CORPUSCULAR HEMOGLOBIN 30.7 pg (27.0-33.4); MEAN CORPUSCULAR HGB CONC 33.5 g/dL (32.0-36.0); MEAN CORPUSCULAR VOLUME 91 fl (80-97); MONOCYTES % (AUTO) 9.2 % (3-13); PLATELET COUNT 115 10^3/uL (150-450); RED BLOOD COUNT 3.23 10^6/uL (3.72-5.28); RED CELL DISTRIBUTION WIDTH 18.1 % (11.5-14.0); SEGMENTED NEUTROPHILS % (AUTO) 79.1 % (42-78); TOTAL CELLS COUNTED % (AUTO) 100 %; WHITE BLOOD COUNT 13.2 10^3/uL (4.0-10.5)
[2018-02-21 06:28] LABS: HEMOGLOBIN 9.9 g/dL (12.0-15.5)
[2018-02-21 06:45] LABS: ANION GAP 5 (5-19); BLOOD UREA NITROGEN 5 mg/dL (7-20); CALCIUM 9.7 mg/dL (8.4-10.2); CARBON DIOXIDE 30 mmol/L (22-30); CHLORIDE 104 mmol/L (98-107); GLUCOSE 176 mg/dL (75-110); POTASSIUM 3.4 mmol/L (3.6-5.0); SODIUM 138.7 mmol/L (137-145)
[2018-02-21] MEDS: HUM INSULIN NPH/REG INSULIN HM 100 UNIT/1 ML 3 ML SUBCUT SCH (08:49)
--- NOTE | 2018-02-21 08:52 | PDOC DISCHARGE SUMMARY ---
General - Admit/Disc Date/PCP Admission Date/Primary Care Provider: 02/03/18 17:18 DAVID NORTON Discharge Date: 02/21/18 - Discharge Diagnosis (1) Epistaxis not due to trauma Is this a current diagnosis for this admission?: Yes (2) Lower GI bleeding Is this a current diagnosis for this admission?: Yes (4) Type 2 diabetes mellitus Is this a current diagnosis for this admission?: Yes (5) HTN (hypertension) Is this a current diagnosis for this admission?: Yes (6) HLD (hyperlipidemia) Is this a current diagnosis for this admission?: Yes (7) Fever of unknown origin (FUO) Is this a current diagnosis for this admission?: Yes (8) Hypoglycemia associated with diabetes Is this a current diagnosis for this admission?: Yes - Additional Information Resuscitation Status: Full Code Prescriptions: Amlodipine Besylate [Norvasc 5 mg Tablet] 5 mg PO Q12 #60 tablet Losartan/Hydrochlorothiazide [Losartan-Hctz 100-25 mg Tab] 1 each PO DAILY #30 tablet Metronidazole [Flagyl 500 mg Tablet] 500 mg PO TID #30 tablet Home Medications: Granisetron HCl [Kytril] 1 mg PO Q12HP PRN 11/05/17 Metoprolol Succinate [Toprol Xl 50 mg Tab.sr] 50 mg PO QHS 11/05/17 Omeprazole 20 mg PO DAILY 11/05/17 Pegfilgrastim [Neulasta Inj 6 mg/0.6 ml Disp.syrin] 6 mg SQ .ASDIR 11/05/17 Polyethylene Glycol 3350 [Miralax Powder 17 gm/Packet] 17 gm PO DAILY 11/05/17 Tramadol HCl [Ultram 50 mg Tablet] 50 mg PO Q6HP PRN 11/05/17 Ezetimibe [Zetia 10 mg Tablet] 10 mg PO QHS 02/03/18 Loratadine [Claritin] 10 mg PO DAILY 02/03/18 Olmesartan/Hydrochlorothiazide [Olmesartan-Hctz 40-25 mg Tab] 1 each PO DAILY 02/03/18 Prochlorperazine Maleate [Compazine 10 mg Tablet] 10 mg PO Q6HP PRN 02/03/18 Amlodipine Besylate [Norvasc 5 mg Tablet] 5 mg PO Q12 #60 tablet 02/21/18 Hum Insulin NPH/Reg Insulin Hm [Novolin 70-30 100 Unit/ml Vial] 50 units SQ QAM #0 02/21/18 Losartan/Hydrochlorothiazide [Losartan-Hctz 100-25 mg Tab] 1 each PO DAILY #30 tablet 02/21/18 Metronidazole [Flagyl 500 mg Tablet] 500 mg PO TID #30 tablet 02/21/18 History of Present Illness History of Present Illness: TRELL ISLAS is a 72 year old female Hospital Course Hospital Course: She was admitted for lower GI bleeding as well as nasal bleeding. She was seen by the ENT team with eventual cauterization of her bleeding nasal vessel. Due to persistence of her lower GI bleed and bleeding scan suggestion of right colon cancer site as source of bleeding her colonoscopy did confirm this findings and she eventually had right hemicolectomy with end to end anastomosis. Post operative period was complicated by fever and work up did revealed Bacteroides Fragilis septicemia. she was managed with IV Zosyn and discharge home on oral Flagyl for 10 days. Her Lantus insulin will be adjusted gradually on outpatient as her food intake improves. She will follow up with Dr Rossi, surgeon, Dr Duncan, oncologist and myself in the office as instructed upon discharge. Physical Exam Vital Signs: Temp Pulse Resp BP Pulse Ox 98.0 F 77 18 154/67 H 97 02/21/18 03:38 02/21/18 03:38 02/21/18 03:38 02/21/18 03:38 02/21/18 03:38 Intake & Output 02/20/18 02/21/18 02/22/18 06:59 06:59 06:59 Intake Total 1693 3781 100 Output Total 300 1075 Balance 1393 2706 100 Weight 85.4 kg 74.8 kg Physical Exam: General appearance: PRESENT: no acute distress Head exam: PRESENT: atraumatic, normocephalic Eye exam: PRESENT: conjunctiva pink, EOMI, PERRLA. ABSENT: pallor, scleral icterus Ear exam: PRESENT: normal external ear exam Mouth exam: PRESENT: moist Teeth exam: PRESENT: dental caries, poor dentition Respiratory exam: PRESENT: clear to auscultation [place], decreased breath sounds - at lung bases Cardiovascular exam: PRESENT: RRR. ABSENT: diastolic murmur, rubs, systolic murmur GI/Abdominal exam: PRESENT: normal bowel sounds, soft, less tenderness - around surgical wound site healing satisfactorily with multiple olivia in situ. ABSENT: distended, guarding, mass, organomegaly, rebound Extremities exam: ABSENT: pedal edema Neurological exam: PRESENT: alert, awake, oriented to person, oriented to place, oriented to time, oriented to situation, CN II-XII grossly intact. ABSENT: motor sensory deficit Psychiatric exam: PRESENT: appropriate affect, normal mood. ABSENT: homicidal ideation, suicidal ideation Skin exam: PRESENT: dry, warm Results Laboratory Results: 02/21/18 05:44 02/21/18 05:44 02/21/18 02/21/18 05:44 05:44 WBC 13.2 H RBC 3.23 L Hgb 9.9 L D Hct 29.6 L MCV 91 MCH 30.7 MCHC 33.5 RDW 18.1 H Plt Count 115 L Seg Neutrophils % 79.1 H Lymphocytes % 10.3 L Monocytes % 9.2 Eosinophils % 1.1 Basophils % 0.3 Absolute Neutrophils 10.4 H Absolute Lymphocytes 1.4 Absolute Monocytes 1.2 Absolute Eosinophils 0.1 Absolute Basophils 0.0 Sodium 138.7 Potassium 3.4 L Chloride 104 Carbon Dioxide 30 Anion Gap 5 BUN 5 L Creatinine 0.50 L Est GFR ( Amer) > 60 Est GFR (Non-Af Amer) > 60 Glucose 176 H Calcium 9.7 02/18/18 08:45 Blood Blood Culture - Final Bacteroides Fragilis Group 02/03/18 02/03/18 02/04/18 13:30 13:30 01:07 Creatine Kinase 76 62 Troponin I < 0.012 02/04/18 02/04/18 02/04/18 01:07 06:59 06:59 Creatine Kinase 53 Troponin I < 0.012 < 0.012 Impressions: GI Bleed Scan Nuclear Medicine 02/06/18 00:00 IMPRESSION: There is no area of abnormal tracer excretion in the distribution of large bowel which increases in intensity over time or shows antegrade or retrograde movement in the large bowel to suggest active lower GI bleeding There are few faint areas of irregular tracer presence in the proximal large bowel along the inferior margin of the liver which can be seen in an infectious process like acute diverticulitis Delayed imaging can be obtained at 24 hours, following tracer injection time, to look for any delayed intermittent bleeding in the lower GI tract. copyright 2010 [employer]- All Rights Reserved Chest X-Ray 02/18/18 00:00 IMPRESSION: STABLE CARDIOMEGALY. NO ACUTE FINDINGS. Qualifiers - * PATIENT BEING DISCHARGED WITH ANY OF THE FOLLOWING DIAGNOSIS: No Plan Discharge Plan: D/C home today. Follow up with Dakota Guillermo and myself as instructed upon discharge.
[2018-02-21] MEDS: POTASSIUM CHLORIDE 10 MEQ CAPSULE.ER PO SCH ×2 (09:00→14:08)
[2018-02-21] MEDS: OXYMETAZOLINE HCL 0.05% NASAL SPRAY 15 ML BOTTLE NASL SCH (10:14)
[2018-02-21] MEDS: ENOXAPARIN SODIUM INJ 40 MG/0.4 ML DISP.SYRIN SUBCUT SCH (10:15)
[2018-02-21] MEDS: LORATADINE 10 MG TABLET PO SCH (10:19)
[2018-02-21] MEDS: DOCUSATE SODIUM 100 MG CAPSULE PO SCH (10:19)
[2018-02-21] MEDS: SODIUM CHLORIDE NASAL SPRAY 44 ML NASL SCH (10:19)
[2018-02-21] MEDS: HYDROCHLOROTHIAZIDE 25 MG TABLET PO SCH (10:19)
[2018-02-21] MEDS: LOSARTAN POTASSIUM 50 MG TABLET PO SCH (10:20)
[2018-02-21] MEDS: AMLODIPINE BESYLATE 5 MG TABLET PO SCH (10:20)
[2018-02-21 13:13] VITALS: BP 152/72
== END 2018-02-21 17:15 | disposition home health service (06) | DRG 329 ==
LOC: ER 10:34 → EH 17:18 → 4S 20:55
PROVIDERS: ADMIT Internal Medicine Geriatric Medicine; ATTEND Internal Medicine Geriatric Medicine
PROC: 30233N1 Transfusion of Nonautologous Red Blood Cells into Peripheral Vein, Percutaneous Approach (ICD-10-PCS; 2018-02-04)
PROC: 30233K1 Transfusion of Nonautologous Frozen Plasma into Peripheral Vein, Percutaneous Approach (ICD-10-PCS; 2018-02-05)
PROC: 30233N1 Transfusion of Nonautologous Red Blood Cells into Peripheral Vein, Percutaneous Approach (ICD-10-PCS; 2018-02-05)
PROC: 093K8ZZ Control Bleeding in Nasal Mucosa and Soft Tissue, Via Natural or Artificial Opening Endoscopic (ICD-10-PCS; 2018-02-06)
PROC: 30233N1 Transfusion of Nonautologous Red Blood Cells into Peripheral Vein, Percutaneous Approach (ICD-10-PCS; 2018-02-07)
PROC: 0DNU0ZZ Release Omentum, Open Approach (ICD-10-PCS; 2018-02-10)
PROC: 0DJD8ZZ Inspection of Lower Intestinal Tract, Via Natural or Artificial Opening Endoscopic (ICD-10-PCS; 2018-02-10)
PROC: 30233N1 Transfusion of Nonautologous Red Blood Cells into Peripheral Vein, Percutaneous Approach (ICD-10-PCS; 2018-02-10)
PROC: 30233K1 Transfusion of Nonautologous Frozen Plasma into Peripheral Vein, Percutaneous Approach (ICD-10-PCS; 2018-02-10)
PROC: 30233R1 Transfusion of Nonautologous Platelets into Peripheral Vein, Percutaneous Approach (ICD-10-PCS; 2018-02-10)
PROC: 0DTF0ZZ Resection of Right Large Intestine, Open Approach (ICD-10-PCS; principal; 2018-02-10 10:00)
PROC: 30233N1 Transfusion of Nonautologous Red Blood Cells into Peripheral Vein, Percutaneous Approach (ICD-10-PCS; 2018-02-19)
PROC: 3E0234Z Introduction of Serum, Toxoid and Vaccine into Muscle, Percutaneous Approach (ICD-10-PCS; 2018-02-21)
DX: C18.2 Malignant neoplasm of ascending colon (principal); A41.89 Other specified sepsis; K92.2 Gastrointestinal hemorrhage, unspecified; C78.7 Secondary malignant neoplasm of liver and intrahepatic bile duct; C77.8 Secondary and unspecified malignant neoplasm of lymph nodes of multiple regions; C78.6 Secondary malignant neoplasm of retroperitoneum and peritoneum; D62 Acute posthemorrhagic anemia; R04.0 Epistaxis; K66.0 Peritoneal adhesions (postprocedural) (postinfection); E11.42 Type 2 diabetes mellitus with diabetic polyneuropathy; E11.649 Type 2 diabetes mellitus with hypoglycemia without coma; I10 Essential (primary) hypertension; K21.9 Gastro-esophageal reflux disease without esophagitis; E78.00 Pure hypercholesterolemia, unspecified; H61.22 Impacted cerumen, left ear; J34.2 Deviated nasal septum; J34.3 Hypertrophy of nasal turbinates; B96.6 Bacteroides fragilis [B. fragilis] as the cause of diseases classified elsewhere; F32.9 Major depressive disorder, single episode, unspecified; Z79.4 Long term (current) use of insulin; Z79.891 Long term (current) use of opiate analgesic; Z79.899 Other long term (current) drug therapy; Z23 Encounter for immunization
CPT/HCPCS: 00790; 36415; 36430; 45378; 71045; 78278; 80048; 80053; 80061; 80307; 81001; 82140; 82150; 82550; 82962; 83036; 83690; 83735; 84100; 84439; 84443; 84484; 85025; 85027; 85610; 85730; 86850; 86900; 86901; 86920; 87040; 87077; 87086; 88309; 90471; 90686; 93005; 93010; 99284; A9560; C9290; G0008; J0131; J0171; J0295; J0330; J1100; J1170; J1200; J1610; J1642; J1650; J1815; J1885; J1940; J2250; J2270; J2310; J2405; J2543; J2704; J3010; J3490; J7030; P9016; P9017; P9035; Q9969

== ENCOUNTER 2018-02-28 13:29 | Inpatient (IN) | payer MEDICARE ==
[2018-02-28 15:31] LABS: ABSOLUTE BASOPHILS # (AUTO) 0.1 10^3/uL (0.0-0.2); ABSOLUTE LYMPHOCYTES (AUTO) 1.2 10^3/uL (0.5-4.7); ABSOLUTE MONOCYTES (AUTO) 1.4 10^3/uL (0.1-1.4); ABSOLUTE NEUT (AUTO) 13.8 10^3/uL (1.7-8.2); BASOPHILS % (AUTO) 0.4 % (0-2); EOSINOPHILS % (AUTO) 0.2 % (0-6); HEMATOCRIT 32.4 % (36.0-47.0); HEMOGLOBIN 10.6 g/dL (12.0-15.5); LYMPHOCYTES % (AUTO) 7.3 % (13-45); MEAN CORPUSCULAR HGB CONC 32.8 g/dL (32.0-36.0); MEAN CORPUSCULAR VOLUME 91 fl (80-97); MONOCYTES % (AUTO) 8.3 % (3-13); PLATELET COUNT 215 10^3/uL (150-450); RED BLOOD COUNT 3.54 10^6/uL (3.72-5.28); RED CELL DISTRIBUTION WIDTH 17.9 % (11.5-14.0); SEGMENTED NEUTROPHILS % (AUTO) 83.8 % (42-78); TOTAL CELLS COUNTED % (AUTO) 100 %; WHITE BLOOD COUNT 16.4 10^3/uL (4.0-10.5)
[2018-02-28 15:51] LABS: ALANINE AMINOTRANSFERASE 22 U/L (9-52); ALBUMIN 3.4 g/dL (3.5-5.0); ALKALINE PHOSPHATASE 183 U/L (38-126); ANION GAP 9 (5-19); ASPARTATE AMINO TRANSFERASE 97 U/L (14-36); BILIRUBIN,DIRECT 0.3 mg/dL (0.0-0.4); BILIRUBIN,TOTAL 1.1 mg/dL (0.2-1.3); BLOOD UREA NITROGEN 8 mg/dL (7-20); CARBON DIOXIDE 31 mmol/L (22-30); CHLORIDE 98 mmol/L (98-107); GLUCOSE 167 mg/dL (75-110); POTASSIUM 3.7 mmol/L (3.6-5.0); SODIUM 138.4 mmol/L (137-145); TOTAL PROTEIN 8.3 g/dL (6.3-8.2)
[2018-02-28] MEDS: NORMAL SALINE 1000 ML 1,000 ML IV PRN (16:32)
[2018-02-28] MEDS: LOSARTAN POTASSIUM 50 MG TABLET PO SCH (17:29)
[2018-02-28] MEDS: POLYETHYLENE GLYCOL 3350 POWDER 17 GM/1 PACKET PO SCH (17:29)
[2018-02-28] MEDS: LORATADINE 10 MG TABLET PO SCH (17:29)
[2018-02-28] MEDS: LANSOPRAZOLE 30 MG TAB.RAP.DR PO SCH (17:29)
[2018-02-28] MEDS ORDERED: HYDROCHLOROTHIAZIDE 25 MG TABLET PO SCH (17:30)
[2018-02-28] MEDS ORDERED: ENOXAPARIN SODIUM INJ 40 MG/0.4 ML DISP.SYRIN SUBCUT ONE (17:40)
[2018-02-28] MEDS: PIPERACILLIN SODIUM/TAZOBACTAM 3.375 GM in NORMAL SALINE 100 ML IV SCH ×2 (18:06→23:41)
--- NOTE | 2018-02-28 18:23 | PDOC H&P ---
History of Present Illness Admission Date/PCP: 02/28/18 13:29 DAVID MONTANEZILANACHELA Patient complains of: Dizziness and not feeling well History of Present Illness: TRELL ISLAS is a 72 year old female who was recently discharged from this hospital after admission for GI bleed that led to right hemicolectomy of ascending colon metastatic cancer with end-to-end anastomosis. She developed Bacteroides Fragilis septicemia thereafter which was adequately treated with IV Zosyn and subsequently discharged home on oral Metronidazole therapy. Unfortunately the patient did not fill this prescription. Upon her post acute care office follow up I spoke with her visiting nurse staff from [facility] who confirmed her noncompliant with treatment. Attempt was made to restart her on oral Flagyl with new electronic prescription sent to her pharmacy on 02/26/18 but remain unfilled.She was brought to my office today by her daughter with claim of recurrent episodes dizziness and difficulty with ambulation and self care at home. Patient appeared acutely ill despite her chronic debility. Daughter reported that patient cannot support self while standing, nausea, headache and increase confusion. Her initial evaluation revealed demonstrable elevated blood pressure with tachycardia and leukocytosis. She was advised hospitalization for further evaluation and treatment. Her morbidities include hypertension, diabetes mellitus type 2, HLD, GERD, metastatic colon cancer s/p right hemicolectomy with end-to-end anastomosis, and depression. Past Medical History Cardiac Medical History: Reports: Hyperlipidema, Hypertension Neurological Medical History: Denies: Seizures Endocrine Medical History: Reports: Diabetes Mellitus Type 2 Malignancy Medical History: Reports: Colorectal Cancer - with liver metastases and currently on chemotherapy. GI Medical History: Reports: Gastroesophageal Reflux Disease Psychiatric Medical History: Reports: Depression Past Surgical History Past Surgical History: Reports: Hysterectomy, Vascular Surgery - Port for chemo, Other - Biopsies of colon Social History Smoking Status: Never Smoker Frequency of Alcohol Use: None Hx Recreational Drug Use: No Drugs: None Hx Prescription Drug Abuse: No - Advance Directive Resuscitation Status: Full Code Family History Family History: Reviewed & Not Pertinent Parental Family History Reviewed: Yes Children Family History Reviewed: Yes Sibling(s) Family History Reviewed.: Yes Medication/Allergy Home Medications: Metoprolol Succinate [Toprol Xl 50 mg Tab.sr] 50 mg PO QHS 11/05/17 Omeprazole 20 mg PO DAILY 11/05/17 Polyethylene Glycol 3350 [Miralax Powder 17 gm/Packet] 17 gm PO DAILY 11/05/17 Loratadine [Claritin] 10 mg PO DAILY 02/03/18 Amlodipine Besylate [Norvasc 5 mg Tablet] 5 mg PO Q12 #60 tablet 02/21/18 Losartan/Hydrochlorothiazide [Losartan-Hctz 100-25 mg Tab] 1 each PO DAILY #30 tablet 02/21/18 Hum Insulin NPH/Reg Insulin Hm [Novolin 70-30 100 Unit/ml Vial] 50 units SQ WBRKFST 02/28/18 Insulin Aspart Prot/Insuln Asp [Novolog Mix 70-30 Flexpen Syrn] 50 unit SQ WSUPPER 02/28/18 Metformin HCl [Glucophage 500 mg Tablet] 500 mg PO BIDACBS 02/28/18 Allergies/Adverse Reactions: pioglitazone [From Actos] Allergy (Unverified 02/28/18 14:38) pravastatin Allergy (Unverified 02/28/18 14:38) simvastatin Allergy (Verified 02/28/18 17:15) Review of Systems Constitutional: PRESENT: anorexia, headache(s), weakness Eyes: PRESENT: visual disturbances Ears: PRESENT: hearing changes Nose, Mouth, and Throat: PRESENT: headache(s) Cardiovascular: ABSENT: chest pain, dyspnea on exertion, edema, orthropnea, palpitations Respiratory: ABSENT: cough, hemoptysis Gastrointestinal: PRESENT: nausea. ABSENT: as per HPI, abdominal pain, bloating, coffee ground emesis, constipation, diarrhea, dysphagia, heartburn, hematemesis, hematochezia, melena, vomiting, other Genitourinary: ABSENT: dysuria, hematuria Musculoskeletal: PRESENT: muscle weakness - generalized. ABSENT: as per HPI, back pain, deformity, joint swelling, other Integumentary: ABSENT: rash, wounds Neurological: ABSENT: abnormal gait, abnormal speech, confusion, dizziness, focal weakness, syncope Psychiatric: ABSENT: anxiety, depression, homidical ideation, suicidal ideation Endocrine: ABSENT: cold intolerance, heat intolerance, polydipsia, polyuria Hematologic/Lymphatic: ABSENT: easy bleeding, easy bruising, lymphadenopathy Allergic/Immunologic: ABSENT: seasonal rhinorrhea Physical Exam Vital Signs: Temp Pulse Resp BP Pulse Ox 98.6 F 97 22 H 165/84 H 95 02/28/18 14:16 02/28/18 15:10 02/28/18 14:16 02/28/18 14:16 02/28/18 14:16 Intake & Output 02/27/18 02/28/18 03/01/18 06:59 06:59 06:59 Weight 82.4 kg General appearance: PRESENT: disheveled, obese Head exam: PRESENT: atraumatic, normocephalic Eye exam: PRESENT: conjunctiva pink, EOMI, PERRLA. ABSENT: scleral icterus Ear exam: PRESENT: normal external ear exam Mouth exam: PRESENT: moist Teeth exam: PRESENT: poor dentation Neck exam: PRESENT: full ROM. ABSENT: carotid bruit, JVD, lymphadenopathy, thyromegaly Respiratory exam: PRESENT: clear to auscultation [place], decreased breath sounds - at lung bases Cardiovascular exam: PRESENT: +S1, +S2, tachycardia. ABSENT: diastolic murmur, systolic murmur Pulses: PRESENT: +1 pedal pulses bilateral Vascular exam: PRESENT: normal capillary refill. ABSENT: pallor GI/Abdominal exam: PRESENT: normal bowel sounds, soft, other - surgical wound healing satisfactorily. Sheng in situ.. ABSENT: distended, guarding, mass, organolmegaly, rebound, tenderness Rectal exam: PRESENT: deferred Extremities exam: ABSENT: pedal edema Musculoskeletal exam: PRESENT: deformity - due to multiple jpoints involvement with arthritis. Neurological exam: PRESENT: alert, awake, oriented to person, oriented to place, oriented to time, oriented to situation, CN II-XII grossly intact. ABSENT: motor sensory deficit Psychiatric exam: PRESENT: appropriate affect, normal mood. ABSENT: homicidal ideation, suicidal ideation Skin exam: PRESENT: dry, warm Results Laboratory Results: 02/28/18 15:21 02/28/18 15:21 02/28/18 02/28/18 15:21 15:21 WBC 16.4 H RBC 3.54 L Hgb 10.6 L Hct 32.4 L MCV 91 MCH 30.0 MCHC 32.8 RDW 17.9 H Plt Count 215 Seg Neutrophils % 83.8 H Lymphocytes % 7.3 L Monocytes % 8.3 Eosinophils % 0.2 Basophils % 0.4 Absolute Neutrophils 13.8 H Absolute Lymphocytes 1.2 Absolute Monocytes 1.4 Absolute Eosinophils 0.0 Absolute Basophils 0.1 Sodium 138.4 Potassium 3.7 Chloride 98 Carbon Dioxide 31 H Anion Gap 9 BUN 8 Creatinine 0.73 Est GFR ( Amer) > 60 Est GFR (Non-Af Amer) > 60 Glucose 167 H Calcium 10.0 Total Bilirubin 1.1 AST 97 H ALT 22 Alkaline Phosphatase 183 H Total Protein 8.3 H Albumin 3.4 L Assessment & Plan - Diagnosis (1) Bacterial infection due to Bacteroides fragilis Is this a current diagnosis for this admission?: Yes Plan: Start on IV Zosyn coverage. Follow up on blood culture findings. (2) Uncontrolled diabetes mellitus with hyperglycemia, with long-term current use of insulin Is this a current diagnosis for this admission?: Yes Plan: Maintain on Humalog insulin sliding scale coverage ACHS. Continue on preadmission medication management regimen. (3) HTN (hypertension) Qualifiers: Hypertension type: essential hypertension Qualified Code(s): I10 - Essential (primary) hypertension Is this a current diagnosis for this admission?: Yes Plan: Continue on preadmission medication management regimen. (4) HLD (hyperlipidemia) Qualifiers: Hyperlipidemia type: unspecified Qualified Code(s): E78.5 - Hyperlipidemia, unspecified Is this a current diagnosis for this admission?: Yes Plan: Continue on preadmission medication management regimen. (5) GERD (gastroesophageal reflux disease) Qualifiers: Esophagitis presence: without esophagitis Qualified Code(s): K21.9 - Gastro-esophageal reflux disease without esophagitis Is this a current diagnosis for this admission?: Yes Plan: Continue on preadmission medication management regimen. (6) History of colon cancer, stage IV Is this a current diagnosis for this admission?: Yes Plan: Continue on preadmission medication management regimen. Request surgical evaluation for her staple removal. (7) Obesity with body mass index (BMI) of 30.0 to 39.9 Is this a current diagnosis for this admission?: Yes Plan: Continue efforts at dietary control and diabetes mellitus management. - Time Time Spent: 50 to 70 Minutes Medications reviewed and adjusted accordingly: Yes Anticipated discharge: SNF - for rehabilitation. Within: Other - Inpatient Certification Based on my medical assessment, after consideration of the patient's comorbidities, presenting symptoms, or acuity I expect that the services needed warrant INPATIENT care.: Yes I certify that my determination is in accordance with my understanding of Medicare's requirements for reasonable and necessary INPATIENT services [42 CFR 412.3e].: Yes Medical Necessity: Significant Comorbidiites Make Outpatient Treatment Too Risky, Need Close Monitoring Due to Risk of Patient Decompensation, Need For IV Fluids, Need For Continuous Telemetry Monitoring, Need for IV Antibiotics, Risk of Complication if Not Cared For in Hospital, Risk of Diagnosis Which Will Require Inpatient Eval/Care/Monitoring Post Hospital Care: D/C or Transfer Summary - Plan Summary Plan Summary: See admitting attending physician orders as per above outlined care plan.
[2018-02-28] MEDS ORDERED: DEXTROSE 40% GEL 15 GM TUBE PO PRN ×2 (18:26)
[2018-02-28] MEDS ORDERED: DEXTROSE 50%-WATER 25 GM/50 ML DISP.SYRIN IV PRN ×2 (18:26)
[2018-02-28] MEDS ORDERED: GLUCAGON,HUMAN RECOMB 1 MG INJ IM PRN (18:26)
[2018-02-28] MEDS: AMLODIPINE BESYLATE 5 MG TABLET PO SCH (23:04)
[2018-02-28] MEDS: METOPROLOL SUCCINATE 50 MG TAB.SR.24H PO SCH (23:04)
[2018-03-01] MEDS: NORMAL SALINE 1000 ML 1,000 ML IV PRN ×2 (03:00→17:04)
[2018-03-01] MEDS ORDERED: LANSOPRAZOLE 15 MG TAB.RAP.DR PO SCH (06:00)
[2018-03-01] MEDS: PIPERACILLIN SODIUM/TAZOBACTAM 3.375 GM in NORMAL SALINE 100 ML IV SCH ×3 (06:54→17:00)
[2018-03-01] MEDS: LANSOPRAZOLE 30 MG TAB.RAP.DR PO SCH (06:54)
[2018-03-01] MEDS: METFORMIN HCL 500 MG TABLET PO SCH ×2 (08:38→17:00)
[2018-03-01] MEDS: ACETAMINOPHEN 325 MG TABLET PO PRN ×3 (08:38→21:39)
[2018-03-01] MEDS: HUM INSULIN NPH/REG INSULIN HM 100 UNIT/1 ML 3 ML SUBCUT SCH (08:38)
[2018-03-01] MEDS: INSULIN LISPRO 100 UNIT/ML 3 ML VIAL SUBCUT PRN ×2 (08:39→13:31)
[2018-03-01 10:00] LABS: HEMATOCRIT 30.3 % (36.0-47.0); MEAN CORPUSCULAR HEMOGLOBIN 30.1 pg (27.0-33.4); MEAN CORPUSCULAR HGB CONC 33.1 g/dL (32.0-36.0); MEAN CORPUSCULAR VOLUME 91 fl (80-97); PLATELET COUNT 189 10^3/uL (150-450); RED BLOOD COUNT 3.32 10^6/uL (3.72-5.28); RED CELL DISTRIBUTION WIDTH 17.2 % (11.5-14.0); WHITE BLOOD COUNT 17.8 10^3/uL (4.0-10.5)
[2018-03-01] MEDS ORDERED: (PENDING PHARMACY ID) (Loratadine [Claritin] 10 MG) PO SCH (10:00)
[2018-03-01] MEDS ORDERED: (PENDING PHARMACY ID) (Losartan/Hydrochlorothiazide [Losartan-Hctz 100-25 Mg Tab] 1 EACH) PO SCH (10:00)
[2018-03-01] MEDS: POLYETHYLENE GLYCOL 3350 POWDER 17 GM/1 PACKET PO SCH (10:11)
[2018-03-01] MEDS: ENOXAPARIN SODIUM INJ 40 MG/0.4 ML DISP.SYRIN SUBCUT SCH (10:11)
[2018-03-01] MEDS: LOSARTAN POTASSIUM 50 MG TABLET PO SCH (10:11)
[2018-03-01] MEDS: AMLODIPINE BESYLATE 5 MG TABLET PO SCH ×2 (10:11→21:38)
[2018-03-01] MEDS: LORATADINE 10 MG TABLET PO SCH (10:11)
[2018-03-01 10:19] LABS: ALANINE AMINOTRANSFERASE 27 U/L (9-52); ALBUMIN 3.1 g/dL (3.5-5.0); ALKALINE PHOSPHATASE 178 U/L (38-126); ANION GAP 8 (5-19); ASPARTATE AMINO TRANSFERASE 87 U/L (14-36); BILIRUBIN,DIRECT 0.4 mg/dL (0.0-0.4); BILIRUBIN,TOTAL 1.5 mg/dL (0.2-1.3); BLOOD UREA NITROGEN 10 mg/dL (7-20); CALCIUM 9.4 mg/dL (8.4-10.2); CARBON DIOXIDE 28 mmol/L (22-30); CHLORIDE 100 mmol/L (98-107); GLUCOSE 260 mg/dL (75-110); POTASSIUM 3.7 mmol/L (3.6-5.0); SODIUM 135.5 mmol/L (137-145); TOTAL PROTEIN 7.7 g/dL (6.3-8.2)
--- NOTE | 2018-03-01 10:36 | PDOC PROGRESS REPORT ---
Subjective Progress Note for:: 03/01/18 Subjective:: This is a 72-year-old patient recently admitting in the hospital for the GI bleed with a history of the colon cancer with the metastatic disease and underwent for the colectomy admitting in the hospital because of patient not feeling well and patient initial evaluation since the elevated white count and leukocytosis and tachycardia and Dr. Burgess admitted because of the infections Patient was started on IV Zosyn Patient's consulted to surgery and suggest to remove the staple and waiting for other evaluations patient is denied any chest pain denied any shortness of the breath Patient is denied any abdominal pain no nausea no vomiting Reason For Visit: SEPTICEMIA DUE TO BACTEROIDES FRAGILIS, MET COLON Physical Exam Vital Signs: Temp Pulse Resp BP Pulse Ox 98.4 F 91 16 156/68 H 96 03/01/18 07:27 03/01/18 07:27 03/01/18 07:27 03/01/18 07:27 03/01/18 07:27 Intake & Output 02/28/18 03/01/18 03/02/18 06:59 06:59 06:59 Intake Total 1823 100 Balance 1823 100 Weight 82 kg General appearance: PRESENT: no acute distress Head exam: PRESENT: atraumatic, normocephalic Eye exam: PRESENT: conjunctiva pink, EOMI, PERRLA. ABSENT: scleral icterus Ear exam: PRESENT: normal external ear exam Mouth exam: PRESENT: moist, tongue midline Neck exam: PRESENT: full ROM. ABSENT: carotid bruit, JVD, lymphadenopathy, thyromegaly Respiratory exam: PRESENT: clear to auscultation [place] Cardiovascular exam: PRESENT: RRR. ABSENT: diastolic murmur, rubs, systolic murmur Pulses: PRESENT: normal dorsalis pedis pul, +2 pedal pulses bilateral Vascular exam: PRESENT: normal capillary refill GI/Abdominal exam: PRESENT: normal bowel sounds, soft. ABSENT: distended, g uarding, mass, organolmegaly, rebound, tenderness Additonal comments: Staple is intact Rectal exam: PRESENT: deferred Neurological exam: PRESENT: alert, awake, oriented to person, oriented to place, oriented to time, oriented to situation, CN II-XII grossly intact. ABSENT: motor sensory deficit Psychiatric exam: PRESENT: appropriate affect, normal mood. ABSENT: homicidal ideation, suicidal ideation Skin exam: PRESENT: dry, intact, warm. ABSENT: cyanosis, rash Results Laboratory Results: 03/01/18 09:46 03/01/18 09:46 02/28/18 02/28/18 03/01/18 15:21 15:21 09:46 WBC 16.4 H 17.8 H RBC 3.54 L 3.32 L Hgb 10.6 L 10.0 L Hct 32.4 L 30.3 L MCV 91 91 MCH 30.0 30.1 MCHC 32.8 33.1 RDW 17.9 H 17.2 H Plt Count 215 189 Seg Neutrophils % 83.8 H Lymphocytes % 7.3 L Monocytes % 8.3 Eosinophils % 0.2 Basophils % 0.4 Absolute Neutrophils 13.8 H Absolute Lymphocytes 1.2 Absolute Monocytes 1.4 Absolute Eosinophils 0.0 Absolute Basophils 0.1 Sodium 138.4 Potassium 3.7 Chloride 98 Carbon Dioxide 31 H Anion Gap 9 BUN 8 Creatinine 0.73 Est GFR ( Amer) > 60 Est GFR (Non-Af Amer) > 60 Glucose 167 H Calcium 10.0 Total Bilirubin 1.1 AST 97 H ALT 22 Alkaline Phosphatase 183 H Total Protein 8.3 H Albumin 3.4 L 03/01/18 09:46 WBC RBC Hgb Hct MCV MCH MCHC RDW Plt Count Seg Neutrophils % Lymphocytes % Monocytes % Eosinophils % Basophils % Absolute Neutrophils Absolute Lymphocytes Absolute Monocytes Absolute Eosinophils Absolute Basophils Sodium 135.5 L Potassium 3.7 Chloride 100 Carbon Dioxide 28 Anion Gap 8 BUN 10 Creatinine 0.84 Est GFR ( Amer) > 60 Est GFR (Non-Af Amer) > 60 Glucose 260 H Calcium 9.4 Total Bilirubin 1.5 H AST 87 H ALT 27 Alkaline Phosphatase 178 H Total Protein 7.7 Albumin 3.1 L Assessment & Plan - Diagnosis (1) Bacterial infection due to Bacteroides fragilis Is this a current diagnosis for this admission?: Yes Plan: Continues to IV Zosyn Will wait for the blood culture and urine culture Also get a chest x-ray (2) GERD (gastroesophageal reflux disease) Qualifiers: Esophagitis presence: without esophagitis Qualified Code(s): K21.9 - Gastro-esophageal reflux disease without esophagitis Is this a current diagnosis for this admission?: Yes (3) Anemia Qualifiers: Anemia type: other cause Other causes of anemia: acute posthemorrhagic Qualified Code(s): D62 - Acute posthemorrhagic anemia Is this a current diagnosis for this admission?: Yes (4) Colon cancer Qualifiers: Colon location: unspecified part of colon Qualified Code(s): C18.9 - Malignant neoplasm of colon, unspecified Is this a current diagnosis for this admission?: Yes (5) HTN (hypertension) Qualifiers: Hypertension type: essential hypertension Qualified Code(s): I10 - Essential (primary) hypertension Is this a current diagnosis for this admission?: Yes (6) Type 2 diabetes mellitus Qualifiers: 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: with chcf use Diabetes mellitus complication status: with neurologic complications Diabetes mellitus complication detail: with polyneuropathy Qualified Code(s): E11.42 - Type 2 diabetes mellitus with diabetic polyneuropathy; 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
--- NOTE | 2018-03-01 11:49 | RADIOLOGY REPORT (SQ) ---
EXAM DESCRIPTION: CHEST SINGLE VIEW COMPLETED DATE/TIME: 03/01/2018 11:35 am REASON FOR STUDY: SEPSIS COMPARISON: 02/18/2018. NUMBER OF VIEWS: One view. TECHNIQUE: Single frontal radiographic view of the chest acquired. LIMITATIONS: None. FINDINGS: LUNGS AND PLEURA: No opacities, masses or pneumothorax. No pleural effusion. MEDIASTINUM AND HILAR STRUCTURES: No masses. Contour normal. HEART AND VASCULAR STRUCTURES: Heart enlarged without failure. Normal vasculature. BONES: No acute findings. Chronic changes in the spine. HARDWARE: Vascular port. OTHER: No other significant finding. IMPRESSION: STABLE CARDIOMEGALY. NO ACUTE FINDINGS. TECHNICAL DOCUMENTATION: JOB ID: [id number] [employer]- All Rights Reserved Reading location - IP/workstation name: [email or web address]
[2018-03-01] MEDS: METOPROLOL SUCCINATE 50 MG TAB.SR.24H PO SCH (21:38)
[2018-03-02] MEDS: PIPERACILLIN SODIUM/TAZOBACTAM 3.375 GM in NORMAL SALINE 100 ML IV SCH ×5 (00:50→23:21)
[2018-03-02] MEDS: LANSOPRAZOLE 30 MG TAB.RAP.DR PO SCH (05:33)
[2018-03-02 06:45] LABS: ABSOLUTE EOSINOPHILS # (AUTO) 0.1 10^3/uL (0.0-0.6); ABSOLUTE LYMPHOCYTES (AUTO) 1.4 10^3/uL (0.5-4.7); ABSOLUTE MONOCYTES (AUTO) 2.1 10^3/uL (0.1-1.4); ABSOLUTE NEUT (AUTO) 15.2 10^3/uL (1.7-8.2); BASOPHILS % (AUTO) 0.2 % (0-2); EOSINOPHILS % (AUTO) 0.3 % (0-6); HEMATOCRIT 28.4 % (36.0-47.0); HEMOGLOBIN 9.3 g/dL (12.0-15.5); LYMPHOCYTES % (AUTO) 7.6 % (13-45); MEAN CORPUSCULAR HEMOGLOBIN 29.5 pg (27.0-33.4); MEAN CORPUSCULAR HGB CONC 32.7 g/dL (32.0-36.0); MEAN CORPUSCULAR VOLUME 90 fl (80-97); MONOCYTES % (AUTO) 11.1 % (3-13); PLATELET COUNT 147 10^3/uL (150-450); RED BLOOD COUNT 3.14 10^6/uL (3.72-5.28); RED CELL DISTRIBUTION WIDTH 17.4 % (11.5-14.0); SEGMENTED NEUTROPHILS % (AUTO) 80.8 % (42-78); TOTAL CELLS COUNTED % (AUTO) 100 %; WHITE BLOOD COUNT 18.8 10^3/uL (4.0-10.5)
[2018-03-02 07:02] LABS: ANION GAP 7 (5-19); BLOOD UREA NITROGEN 9 mg/dL (7-20); CALCIUM 9.3 mg/dL (8.4-10.2); CARBON DIOXIDE 28 mmol/L (22-30); CHLORIDE 104 mmol/L (98-107); GLUCOSE 64 mg/dL (75-110); POTASSIUM 3.5 mmol/L (3.6-5.0); SODIUM 138.8 mmol/L (137-145)
[2018-03-02] MEDS: METFORMIN HCL 500 MG TABLET PO SCH ×2 (09:54→15:15)
[2018-03-02] MEDS: HUM INSULIN NPH/REG INSULIN HM 100 UNIT/1 ML 3 ML SUBCUT SCH (09:54)
--- NOTE | 2018-03-02 09:59 | RADIOLOGY REPORT (SQ) ---
EXAM DESCRIPTION: CT ABD/PELVIS WITH IV ONLY COMPLETED DATE/TIME: 03/02/2018 9:37 am REASON FOR STUDY: abd pain COMPARISON: PET-CT dated 07/28/2017. TECHNIQUE: CT scan of the abdomen and pelvis performed using helical scanning technique with dynamic intravenous contrast injection. No oral contrast. Images reviewed with lung, soft tissue, and bone windows. Reconstructed coronal and sagittal MPR images reviewed. Delayed images for evaluation of the urinary system also acquired. All images stored on PACS. All CT scanners at this facility use dose modulation, iterative reconstruction, and/or weight based d osing when appropriate to reduce radiation dose to as low as reasonably achievable (ALARA). [facility]: Dose Right [facility]: CareDose [facility]: Dose Right [facility]: Teradose 4D [facility]: [employer] CONTRAST TYPE AND DOSE: contrast/concentration: Isovue 350.00 mg/ml; Total Contrast Delivered: 91.0 ml; Total Saline Delivered: 30.1 ml RENAL FUNCTION: BUN 9 creatinine 0.68. RADIATION DOSE: CT Rad equipment meets quality standard of care and radiation dose reduction techniq ues were employed. CTDIvol: 14.2 - 17.9 mGy. DLP: 1654 mGy-cm.. LIMITATIONS: None. FINDINGS: LOWER CHEST: Stable small nodule in the right the lungs, calcified granuloma on prior PET- CT. LIVER: Normal size. Multiple metastatic lesions which have increased in size. No dilated ducts. SPLEEN: Normal size. No focal lesions. PANCREAS: No masses. No significant calcifications. No adjacent inflammation or peripancreatic fluid collections. Pancreatic duct not dilated. GALLBLADDER: No identified stones by CT criteria. No inflammatory changes to suggest cholecystitis. ADRENAL GLANDS: Bilateral adrenal nodules. RIGHT KIDNEY AND URETER: No solid masses. Small calyceal calculi. 3 mm calculus in the proximal ur eter. No hydronephrosis or hydroureter. LEFT KIDNEY AND URETER: Cortical cyst. No solid masses. Multiple nonobstructing calculi. No hydr onephrosis or hydroureter. AORTA AND VESSELS: No aneurysm. No dissection. Renal arteries, SMA, celiac without stenosis. RETROPERITONEUM: No retroperitoneal adenopathy, hemorrhage or masses. BOWEL AND PERITONEAL CAVITY: Surgical changes in the right lower quadrant. Tubular fluid collections adjacent to the surgical site. No significant free fluid. APPENDIX: Surgically absent. PELVIS: No mass. No free fluid. Normal bladder. ABDOMINAL WALL: No masses. No hernias. BONES: No significant or acute findings. OTHER: No other significant finding. IMPRESSION: 1. SURGICAL CHANGES IN THE RIGHT LOWER QUADRANT. TUBULAR FLUID COLLECTIONS MAY REPRESENT FLUID FILLE D LOOPS OF BOWEL ALTHOUGH CANNOT EXCLUDE POSTOPERATIVE FLUID COLLECTIONS. IF THERE IS CLINICAL HUSSEIN RN, REPEAT CT SCAN WITH ORAL CONTRAST MAY BE HELPFUL. 2. HEPATIC METASTASES WHICH HAVE WORSENED SINCE JULY 2017. 3. NONOBSTRUCTING CALCULI IN BOTH KIDNEYS. 3 MM CALCULUS IN THE PROXIMAL RIGHT URETER WITH NO SIGNIF ICANT HYDRONEPHROSIS. CORTICAL CYST IN THE LEFT KIDNEY. 4. NO OTHER SIGNIFICANT FINDINGS. TECHNICAL DOCUMENTATION: JOB ID: [id number] Quality ID # [id number]: Final reports with documentation of one or more dose reduction techniques (e.g., Au tomated exposure control, adjustment of the mA and/or kV according to patient size, use of iterative reconstruction technique) 2010 [employer]- All Rights Reserved Reading location - IP/workstation name: [email or web address]
[2018-03-02] MEDS: AMLODIPINE BESYLATE 5 MG TABLET PO SCH ×2 (10:13→21:58)
[2018-03-02] MEDS: LORATADINE 10 MG TABLET PO SCH (10:13)
[2018-03-02] MEDS: POLYETHYLENE GLYCOL 3350 POWDER 17 GM/1 PACKET PO SCH (10:14)
[2018-03-02] MEDS: ENOXAPARIN SODIUM INJ 40 MG/0.4 ML DISP.SYRIN SUBCUT SCH (10:14)
[2018-03-02] MEDS: LOSARTAN POTASSIUM 50 MG TABLET PO SCH (10:14)
--- NOTE | 2018-03-02 13:39 | PDOC PROGRESS REPORT ---
Subjective Progress Note for:: 03/02/18 Subjective:: Patient is currently doing fair Order the CT scan today reviewed with the general surgery and suggest tomorrow repeat the CT scan with oral contrast Patient is denied any abdominal pain No chest pain no short of breath Reason For Visit: SEPTICEMIA DUE TO BACTEROIDES FRAGILIS, MET COLON Physical Exam Vital Signs: Temp Pulse Resp BP Pulse Ox 98.3 F 90 20 144/64 H 96 03/02/18 12:45 03/02/18 12:45 03/02/18 12:45 03/02/18 12:45 03/02/18 12:45 Intake & Output 03/01/18 03/02/18 03/03/18 06:59 06:59 06:59 Intake Total 1823 3326 326 Output Total 100 300 Balance 1823 3226 26 Weight 82 kg 80.5 kg General appearance: PRESENT: no acute distress, well-developed, well-nourished Head exam: PRESENT: atraumatic, normocephalic Eye exam: PRESENT: conjunctiva pink, EOMI, PERRLA. ABSENT: scleral icterus Ear exam: PRESENT: normal external ear exam Mouth exam: PRESENT: moist, tongue midline Neck exam: PRESENT: full ROM. ABSENT: carotid bruit, JVD, lymphadenopathy, thyromegaly Respiratory exam: PRESENT: clear to auscultation [place] Cardiovascular exam: PRESENT: RRR. ABSENT: diastolic murmur, rubs, systolic murmur Vascular exam: PRESENT: normal capillary refill GI/Abdominal exam: PRESENT: normal bowel sounds, soft. ABSENT: distended, guarding, mass, organolmegaly, rebound, tenderness Rectal exam: PRESENT: deferred Neurological exam: PRESENT: alert, awake, oriented to person, oriented to place. ABSENT: motor sensory deficit Psychiatric exam: PRESENT: appropriate affect, normal mood. ABSENT: homicidal ideation, suicidal ideation Skin exam: PRESENT: dry, intact, warm. ABSENT: cyanosis, rash Results Laboratory Results: 03/02/18 05:17 03/02/18 05:17 03/02/18 03/02/18 05:17 05:17 WBC 18.8 H RBC 3.14 L Hgb 9.3 L Hct 28.4 L MCV 90 MCH 29.5 MCHC 32.7 RDW 17.4 H Plt Count 147 L Seg Neutrophils % 80.8 H Lymphocytes % 7.6 L Monocytes % 11.1 Eosinophils % 0.3 Basophils % 0.2 Absolute Neutrophils 15.2 H Absolute Lymphocytes 1.4 Absolute Monocytes 2.1 H Absolute Eosinophils 0.1 Absolute Basophils 0.0 Sodium 138.8 Potassium 3.5 L Chloride 104 Carbon Dioxide 28 Anion Gap 7 BUN 9 Creatinine 0.68 Est GFR ( Amer) > 60 Est GFR (Non-Af Amer) > 60 Glucose 64 L Calcium 9.3 Impressions: Chest X-Ray 03/01/18 00:00 IMPRESSION: STABLE CARDIOMEGALY. NO ACUTE FINDINGS. Abdomen/Pelvis CT 03/02/18 00:00 IMPRESSION: 1. SURGICAL CHANGES IN THE RIGHT LOWER QUADRANT. TUBULAR FLUID COLLECTIONS MAY REPRESENT FLUID FILLED LOOPS OF BOWEL ALTHOUGH CANNOT EXCLUDE POSTOPERATIVE FLUID COLLECTIONS. IF THERE IS CLINICAL CONCERN, REPEAT CT SCAN WITH ORAL CONTRAST MAY BE HELPFUL. 2. HEPATIC METASTASES WHICH HAVE WORSENED SINCE JULY 2017. 3. NONOBSTRUCTING CALCULI IN BOTH KIDNEYS. 3 MM CALCULUS IN THE PROXIMAL RIGHT URETER WITH NO SIGNIFICANT HYDRONEPHROSIS. CORTICAL CYST IN THE LEFT KIDNEY. 4. NO OTHER SIGNIFICANT FINDINGS. Assessment & Plan - Diagnosis (1) Bacterial infection due to Bacteroides fragilis Is this a current diagnosis for this admission?: Yes Plan: Continues to IV Zosyn Will wait for the blood culture and urine culture Also get a chest x-ray (2) GERD (gastroesophageal reflux disease) Qualifiers: Esophagitis presence: without esophagitis Qualified Code(s): K21.9 - Gastro-esophageal reflux disease without esophagitis Is this a current diagnosis for this admission?: Yes (3) Anemia Qualifiers: Anemia type: other cause Other causes of anemia: acute posthemorrhagic Qualified Code(s): D62 - Acute posthemorrhagic anemia Is this a current diagnosis for this admission?: Yes (4) Colon cancer Qualifiers: Colon location: unspecified part of colon Qualified Code(s): C18.9 - Malignant neoplasm of colon, unspecified Is this a current diagnosis for this admission?: Yes (5) HTN (hypertension) Qualifiers: Hypertension type: essential hypertension Qualified Code(s): I10 - Essential (primary) hypertension Is this a current diagnosis for this admission?: Yes (6) Type 2 diabetes mellitus Qualifiers: Diabetes mellitus care home insulin use: with care home use Diabetes mellitus complication status: with neurologic complications Diabetes mellitus complication detail: with polyneuropathy Qualified Code(s): E11.42 - Type 2 diabetes mellitus with diabetic polyneuropathy; 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
[2018-03-02] MEDS: ACETAMINOPHEN 325 MG TABLET PO PRN (15:24)
--- NOTE | 2018-03-02 17:11 | PDOC CONSULTATION ---
Consultation Consult Date: 03/02/18 Consult reason:: sepsis History of Present Illness Admission Date/PCP: 02/28/18 13:29 DAVID ERROL History of Present Illness: TRELL ISLAS is a 72 year old female s/p right hemicolectomy in January for right colon cancer. Her postop course was complicated by B. Fragilis sepsis (positive blood cx), treated appropriately with IV antibiotics. On discharge, she was prescribed oral antibiotics, but she has been very poorly compliant; recently, there has been a deterioration of her conditions and she was admitted on 02/28/18. Admission blood work revealed an elevated WBC (increased to 16K today). The CT scan A/P with IV contrast only done today, reveals a tubular fluid collection in the RLQ; however, the Radiologist could not differenciate it from a loop of bowel. Currently, she reports some unsteadiness while ambulating, but no other symptoms such as fever, chills, cold sweats, problems with urination or defecation. She reports good appetite. Past Medical History Cardiac Medical History: Reports: Hyperlipidema, Hypertension Neurological Medical History: Denies: Seizures Endocrine Medical History: Reports: Diabetes Mellitus Type 2 Malignancy Medical History: Reports: Colorectal Cancer - with liver metastases and currently on chemotherapy. GI Medical History: Reports: Gastroesophageal Reflux Disease Psychiatric Medical History: Reports: Depression Past Surgical History Past Surgical History: Reports: Hysterectomy, Vascular Surgery - Port for chemo, Other - Biopsies of colon Social History Smoking Status: Never Smoker Frequency of Alcohol Use: None Hx Recreational Drug Use: No Drugs: None Hx Prescription Drug Abuse: No - Advance Directive Resuscitation Status: Full Code Family History Family History: Reviewed & Not Pertinent Parental Family History Reviewed: No Children Family History Reviewed: No Sibling(s) Family History Reviewed.: No Medication/Allergy Home Medications: Metoprolol Succinate [Toprol Xl 50 mg Tab.sr] 50 mg PO QHS 11/05/17 Omeprazole 20 mg PO DAILY 11/05/17 Polyethylene Glycol 3350 [Miralax Powder 17 gm/Packet] 17 gm PO DAILY 11/05/17 Loratadine [Claritin] 10 mg PO DAILY 02/03/18 Amlodipine Besylate [Norvasc 5 mg Tablet] 5 mg PO Q12 #60 tablet 02/21/18 Losartan/Hydrochlorothiazide [Losartan-Hctz 100-25 mg Tab] 1 each PO DAILY #30 tablet 02/21/18 Hum Insulin NPH/Reg Insulin Hm [Novolin 70-30 100 Unit/ml Vial] 50 units SQ WBRKFST 02/28/18 Insulin Aspart Prot/Insuln Asp [Novolog Mix 70-30 Flexpen Syrn] 50 unit SQ WSUPPER 02/28/18 Metformin HCl [Glucophage 500 mg Tablet] 500 mg PO BIDACBS 02/28/18 Allergies/Adverse Reactions: pioglitazone [From luciernaos] Allergy (Verified 02/28/18 18:05) pravastatin Allergy (Verified 02/28/18 18:05) simvastatin Allergy (Verified 02/28/18 17:15) Physical Exam Vital Signs: Temp Pulse Resp BP Pulse Ox 98.9 F 96 24 H 151/79 H 100 03/02/18 15:20 03/02/18 15:20 03/02/18 15:20 03/02/18 15:20 03/02/18 15:20 Intake & Output 03/01/18 03/02/18 03/03/18 06:59 06:59 06:59 Intake Total 1823 3326 326 Output Total 100 300 Balance 1823 3226 26 Weight 82 kg 80.5 kg General appearance: PRESENT: no acute distress, cooperative Eye exam: PRESENT: EOMI Mouth exam: PRESENT: dry mucosa, neck supple Neck exam: PRESENT: full ROM Respiratory exam: PRESENT: clear to auscultation [place] Cardiovascular exam: PRESENT: RRR GI/Abdominal exam: PRESENT: normal bowel sounds, soft, tenderness - in the RLQ, other - surgical wound C/D/I Results Laboratory Results: 03/02/18 05:17 03/02/18 05:17 03/02/18 03/02/18 05:17 05:17 WBC 18.8 H RBC 3.14 L Hgb 9.3 L Hct 28.4 L MCV 90 MCH 29.5 MCHC 32.7 RDW 17.4 H Plt Count 147 L Seg Neutrophils % 80.8 H Lymphocytes % 7.6 L Monocytes % 11.1 Eosinophils % 0.3 Basophils % 0.2 Absolute Neutrophils 15.2 H Absolute Lymphocytes 1.4 Absolute Monocytes 2.1 H Absolute Eosinophils 0.1 Absolute Basophils 0.0 Sodium 138.8 Potassium 3.5 L Chloride 104 Carbon Dioxide 28 Anion Gap 7 BUN 9 Creatinine 0.68 Est GFR ( Amer) > 60 Est GFR (Non-Af Amer) > 60 Glucose 64 L Calcium 9.3 Impressions: Chest X-Ray 03/01/18 00:00 IMPRESSION: STABLE CARDIOMEGALY. NO ACUTE FINDINGS. Abdomen/Pelvis CT 03/02/18 00:00 IMPRESSION: 1. SURGICAL CHANGES IN THE RIGHT LOWER QUADRANT. TUBULAR FLUID COLLECTIONS MAY REPRESENT FLUID FILLED LOOPS OF BOWEL ALTHOUGH CANNOT EXCLUDE POSTOPERATIVE FLUID COLLECTIONS. IF THERE IS CLINICAL CONCERN, REPEAT CT SCAN WITH ORAL C ONTRAST MAY BE HELPFUL. 2. HEPATIC METASTASES WHICH HAVE WORSENED SINCE JULY 2017. 3. NONOBSTRUCTING CALCULI IN BOTH KIDNEYS. 3 MM CALCULUS IN THE PROXIMAL RIGHT URETER WITH NO SIGNIFICANT HYDRONEPHROSIS. CORTICAL CYST IN THE LEFT KIDNEY. 4. NO OTHER SIGNIFICANT FINDINGS. Assessment & Plan - Diagnosis (2) Bacterial infection due to Bacteroides fragilis Is this a current diagnosis for this admission?: Yes - Plan Summary Plan Summary: A/ 1) S/p right hemicolectomy (02/10/19) for neoplasia 2) Postoperative B. Fragilis sepsis, treated appropriately with IV abx 3) Poor post-discharge compliance (patient did not take her prescribed oral abx) 4) Unsteadiness 5) CT scan A/P (IV contrast only) significant for RLQ fluid collection vs. loop of bowel 6) Leukocytosis (16K), increased during hospitalization P/ NPO after MN CT scan A/P with oral contrast only in AM Possible, IR drainage of RLQ fluid collection if it is identified on CT scan
[2018-03-02] MEDS ORDERED: DEXTROSE 50%-WATER 25 GM/50 ML DISP.SYRIN IV PRN ×2 (17:12)
[2018-03-02] MEDS ORDERED: DEXTROSE 40% GEL 15 GM TUBE PO PRN ×2 (17:12)
[2018-03-02] MEDS ORDERED: GLUCAGON,HUMAN RECOMB 1 MG INJ SUBCUT PRN (17:12)
[2018-03-02 17:58] LABS: INTERNATIONAL RATION (INR) 1.32
[2018-03-02 17:59] LABS: PARTIAL THROMBOPLASTIN TIME 54.7 SEC (23.5-35.8)
[2018-03-02] MEDS: METOPROLOL SUCCINATE 50 MG TAB.SR.24H PO SCH (21:58)
[2018-03-03] MEDS: LANSOPRAZOLE 30 MG TAB.RAP.DR PO SCH (05:00)
[2018-03-03] MEDS: PIPERACILLIN SODIUM/TAZOBACTAM 3.375 GM in NORMAL SALINE 100 ML IV SCH ×3 (05:05→17:05)
[2018-03-03] MEDS: NORMAL SALINE 1000 ML 1,000 ML IV PRN ×2 (05:06→18:19)
[2018-03-03 06:07] LABS: ABSOLUTE LYMPHOCYTES (AUTO) 1.4 10^3/uL (0.5-4.7); ABSOLUTE MONOCYTES (AUTO) 1.3 10^3/uL (0.1-1.4); ABSOLUTE NEUT (AUTO) 10.8 10^3/uL (1.7-8.2); BASOPHILS % (AUTO) 0.3 % (0-2); EOSINOPHILS % (AUTO) 0.2 % (0-6); HEMATOCRIT 28.4 % (36.0-47.0); HEMOGLOBIN 9.3 g/dL (12.0-15.5); LYMPHOCYTES % (AUTO) 10.7 % (13-45); MEAN CORPUSCULAR HEMOGLOBIN 29.7 pg (27.0-33.4); MEAN CORPUSCULAR HGB CONC 32.7 g/dL (32.0-36.0); MEAN CORPUSCULAR VOLUME 91 fl (80-97); MONOCYTES % (AUTO) 9.3 % (3-13); PLATELET COUNT 144 10^3/uL (150-450); RED BLOOD COUNT 3.14 10^6/uL (3.72-5.28); SEGMENTED NEUTROPHILS % (AUTO) 79.5 % (42-78); TOTAL CELLS COUNTED % (AUTO) 100 %; WHITE BLOOD COUNT 13.5 10^3/uL (4.0-10.5)
[2018-03-03 06:25] LABS: ANION GAP 7 (5-19); BLOOD UREA NITROGEN 7 mg/dL (7-20); CALCIUM 9.4 mg/dL (8.4-10.2); CARBON DIOXIDE 27 mmol/L (22-30); CHLORIDE 105 mmol/L (98-107); GLUCOSE 145 mg/dL (75-110); POTASSIUM 3.6 mmol/L (3.6-5.0); SODIUM 138.8 mmol/L (137-145)
[2018-03-03] MEDS: METFORMIN HCL 500 MG TABLET PO SCH ×2 (07:27→15:23)
[2018-03-03] MEDS: HUM INSULIN NPH/REG INSULIN HM 100 UNIT/1 ML 3 ML SUBCUT SCH (08:48)
[2018-03-03] MEDS: POLYETHYLENE GLYCOL 3350 POWDER 17 GM/1 PACKET PO SCH (09:24)
[2018-03-03] MEDS: LORATADINE 10 MG TABLET PO SCH (09:24)
[2018-03-03] MEDS: AMLODIPINE BESYLATE 5 MG TABLET PO SCH ×2 (09:24→21:21)
[2018-03-03] MEDS: LOSARTAN POTASSIUM 50 MG TABLET PO SCH (09:24)
--- NOTE | 2018-03-03 10:03 | PDOC PROGRESS REPORT ---
Subjective Progress Note for:: 03/03/18 Subjective:: This is a 72-year-old female admitted with failure to thrive and malaise. She was found to have a likely intra-abdominal abscess on CT scan. Today, the patient denies chest pain, shortness of breath, fevers, chills, nausea, vomiting, dizziness, blurry vision. She does report feeling somewhat weak, fatigued, with malaise. Reason For Visit: SEPTICEMIA DUE TO BACTEROIDES FRAGILIS, MET COLON Physical Exam Vital Signs: Temp Pulse Resp BP Pulse Ox 99.9 F 91 24 H 149/76 H 99 03/03/18 07:29 03/03/18 07:29 03/03/18 07:29 03/03/18 07:29 03/03/18 07:29 Intake & Output 03/02/18 03/03/18 03/04/18 06:59 06:59 06:59 Intake Total 3326 1155 Output Total 100 550 Balance 3226 605 Weight 80.5 kg 80.2 kg General appearance: PRESENT: no acute distress Head exam: PRESENT: atraumatic, normocephalic Eye exam: PRESENT: EOMI. ABSENT: scleral icterus Mouth exam: PRESENT: neck supple Teeth exam: PRESENT: poor dentation Neck exam: ABSENT: meningismus, tenderness, thyromegaly, tracheal deviation Respiratory exam: PRESENT: clear to auscultation [place]. ABSENT: chest wall tenderness Pulses: PRESENT: normal radial pulses Vascular exam: PRESENT: normal capillary refill GI/Abdominal exam: PRESENT: soft, tenderness - mild. ABSENT: distended, guarding, rebound Rectal exam: PRESENT: deferred Extremities exam: ABSENT: clubbing Musculoskeletal exam: ABSENT: deformity Neurological exam: PRESENT: alert, awake, oriented to person, oriented to place, oriented to time, oriented to situation Psychiatric exam: ABSENT: agitated, anxious, depressed Focused psych exam: ABSENT: delusional Skin exam: ABSENT: cyanosis, erythema, jaundice Results Laboratory Results: 03/03/18 05:30 03/03/18 05:30 03/03/18 03/03/18 05:30 05:30 WBC 13.5 H RBC 3.14 L Hgb 9.3 L Hct 28.4 L MCV 91 MCH 29.7 MCHC 32.7 RDW 18.0 H Plt Count 144 L Seg Neutrophils % 79.5 H Lymphocytes % 10.7 L Monocytes % 9.3 Eosinophils % 0.2 Basophils % 0.3 Absolute Neutrophils 10.8 H Absolute Lymphocytes 1.4 Absolute Monocytes 1.3 Absolute Eosinophils 0.0 Absolute Basophils 0.0 Sodium 138.8 Potassium 3.6 Chloride 105 Carbon Dioxide 27 Anion Gap 7 BUN 7 Creatinine 0.61 Est GFR ( Amer) > 60 Est GFR (Non-Af Amer) > 60 Glucose 145 H Calcium 9.4 Impressions: Chest X-Ray 03/01/18 00:00 IMPRESSION: STABLE CARDIOMEGALY. NO ACUTE FINDINGS. Abdomen/Pelvis CT 03/02/18 00:00 IMPRESSION: 1. SURGICAL CHANGES IN THE RIGHT LOWER QUADRANT. TUBULAR FLUID COLLECTIONS MAY REPRESENT FLUID FILLED LOOPS OF BOWEL ALTHOUGH CANNOT EXCLUDE POSTOPERATIVE FLUID COLLECTIONS. IF THERE IS CLINICAL CONCERN, REPEAT CT SCAN WITH ORAL CONTRAST MAY BE HELPFUL. 2. HEPATIC METASTASES WHICH HAVE WORSENED SINCE JULY 2017. 3. NONOBSTRUCTING CALCULI IN BOTH KIDNEYS. 3 MM CALCULUS IN THE PROXIMAL RIGHT URETER WITH NO SIGNIFICANT HYDRONEPHROSIS. CORTICAL CYST IN THE LEFT KIDNEY. 4. NO OTHER SIGNIFICANT FINDINGS. Assessment & Plan - Diagnosis (1) Intra-abdominal abscess post-procedure Is this a current diagnosis for this admission?: Yes (2) Metastatic colon cancer to liver Is this a current diagnosis for this admission?: Yes - Plan Summary Plan Summary: This is a 72-year-old female with a history of bacteremia after colon resection. I believe the patient has an intra-abdominal abscess, after reviewing her admission CT scan. The patient is due for a repeat CT scan with oral contrast to help delineate the boundaries of the abscess better. If the abscess can be adequately identified, percutaneous drainage would be the treatment of choice. Continue medical management for now. Continue Zosyn. I do not anticipate surgical intervention will be necessary. I will continue to follow this patient closely with you.
[2018-03-03] MEDS ORDERED: MIDAZOLAM 2 MG/2 ML INJ ONE (11:14)
[2018-03-03] MEDS ORDERED: LIDOCAINE 1% INJ-PF (10 MG/ML) 30 ML SDV ONE (11:15)
[2018-03-03] MEDS ORDERED: FENTANYL CITRATE INJ/PF 100 MCG/2 ML AMPUL ONE (11:15)
--- NOTE | 2018-03-03 12:15 | RADIOLOGY REPORT (SQ) ---
EXAM DESCRIPTION: CT ABD/PELVIS ORAL ONLY COMPLETED DATE/TIME: 03/03/2018 11:32 am REASON FOR STUDY: r/o fluid collection RLQ seen in previous CT scan COMPARISON: CT abdomen pelvis 03/02/2018, PET-CT 07/28/2017, 02/17/2017 TECHNIQUE: CT scan of the abdomen and pelvis performed without intravenous contrast. Patient drank oral contrast. Images reviewed with lung, soft tissue, and bone windows. Reconstructed coronal and sagittal MPR imag es reviewed. All images stored on PACS. All CT scanners at this facility use dose modulation, iterative reconstruction, and/or weight based d osing when appropriate to reduce radiation dose to as low as reasonably achievable (ALARA). [facility]: Dose Right [facility]: CareDose [facility]: Dose Right [facility]: Teradose 4D [facility]: Smart [employer] RADIATION DOSE: CT Rad equipment meets quality standard of care and radiation dose reduction techniq ues were employed. CTDIvol: 16.2 mGy. DLP: 850 mGy-cm.mGy. LIMITATIONS: None. FINDINGS: In the right lower quadrant, a complex multiloculated fluid collection worrisome for absce ss is present, measuring about 9 cm transverse by 3 cm AP x 7 cm craniocaudad. This is better visual ized than on prior CT exam 03/02/2018 because of the oral contrast. No free intraperitoneal air or fluid. LOWER CHEST: No significant findings. No nodules or infiltrates. NON-CONTRASTED LIVER, SPLEEN, ADRENALS: Unchanged liver metastatic lesions. Spleen, adrenal glands u nremarkable PANCREAS: No masses. No peripancreatic inflammatory changes. GALLBLADDER: No identified stones by CT criteria. No inflammatory changes to suggest cholecystitis. RIGHT KIDNEY AND URETER: No suspicious masses. Assessment limited by lack of IV contrast. 2 to 3 mm right mid and lower pole intrarenal nonobstructive stones. 3 mm proximal right ureteral stone coron al image 57. No hydronephrosis or hydroureter. LEFT KIDNEY AND URETER: No suspicious masses. Assessment limited by lack of IV contrast. 6 cm cyst l eft mid pole kidney. Multiple left intrarenal nonobstructive stones up to 10 mm in diameter. No hy dronephrosis or hydroureter. AORTA AND RETROPERITONEUM: No aneurysm. No retroperitoneal masses or adenopathy. BOWEL AND PERITONEAL CAVITY: Oral contrast throughout the gastrointestinal tract. Abscess in the rig ht lower quadrant along the right hemicolectomy surgical bed. There is inflammatory change in the ri ght lower quadrant mesenteries and several small lymph nodes which could be reactive or metastatic. APPENDIX: Surgically absent PELVIS, BLADDER, AND ABDOMINAL WALL:No abnormal masses. No free fluid. Bladder normal. Post hysterec jarad. Old surgical clips left pelvis BONES: Diffuse degenerative disc changes OTHER: No other significant finding. IMPRESSION: Right lower quadrant abscess, better visualized on the current study due to oral contras t. Percutaneous drainage planned for later today COMMENT: Quality ID # [id number]: Final reports with documentation of one or more dose reduction techniques (e.g., Automated exposure control, adjustment of the mA and/or kV according to patient size, use of iterative reconstruction technique) TECHNICAL DOCUMENTATION: JOB ID: [id number] [employer]- All Rights Reserved Reading location - IP/workstation name: [email or web address]
--- NOTE | 2018-03-03 13:19 | RADIOLOGY REPORT (SQ) ---
EXAM DESCRIPTION: CT GUIDED PERCUT DRAIN W/CATH COMPLETED DATE/TIME: 03/03/2018 12:07 pm REASON FOR STUDY: drainage RLQ abdominal fluid IF identified on CT COMPARISON: CT abdomen pelvis 03/03/2018, 03/02/2018 PET-CT 02/17/2017 TECHNIQUE: After obtaining informed consent and explaining the risks and benefits of conscious sedat ion,the patient agreed to the procedure. The patient was brought to the CT suite and was placed supin e on the CT gurney. The patient was prepped and draped in the usual sterile fashion . Axial images w ere obtained for targeting of theright lower quadrant abscess. An appropriate access site was selecte d. IV conscious sedation was administered and physician direction by the registered nurse using 1 millig aurelia of Versed and 100 micrograms of fentanyl. Physiologic monitoring was provided before, during, an d after sedation. The total sedation time was 32 minutes. Documentation face to face time, the performing proceduralist, spent monitoring the patient: 12minute s. Time out was performed. After skin prep and local lidocaine for skin and deep tissue anesthesia, an 18 gauge single wall nee dle was used to access the right lower quadrant abscess cavity. Prompt return own of current drainag e, specimens were sent the lab for Gram stain culture and sensitivity. At this point, a 0.38 guidewi re was through the 18 gauge needle into the right lower quadrant abscess cavity. The tract was dilat ed with 6 Romanian and 10 Romanian dilators. A 10 Romanian locking pigtail catheter was placed, with the p igtail loop in the right lower quadrant abscess cavity. No immediate postprocedure complications. T he right lower quadrant drainage catheter was secured to the patient's skin with a sterile dressing. Catheter should be flushed with 10 mL of sterile saline acute shift, catheter outlet should be recor ded in the nurse's notes and on the catheter drainage vacuum accordion bag. Total of 8.[address] fluoro was used. [address] Fluoroscopic images were obtained and saved to PACS. All CT scanners at this facility use dose modulation, iterative reconstruction, and/or weight based d osing when appropriate to reduce radiation dose to as low as reasonably achievable (ALARA). [facility]: Dose Right [facility]: CareDose [facility]: Dose Right [facility]: Teradose 4D [facility]: [employer] RADIATION DOSE: CT Rad equipment meets quality standard of care and radiation dose reduction techniq ues were employed. CTDIvol: 4.0 - 20.0 mGy. DLP: 913 mGy-cm. mGy. LIMITATIONS: None. FINDINGS: CT guided right lower quadrant abscess catheter drainage with 10 Romanian locking pigtail ca theter. IV conscious sedation. IMPRESSION: CT GUIDED RIGHT LOWER QUADRANT ABSCESS DRAINAGE. GRAM STAIN AND CULTURES PENDING. NO IMMEDIATE COMPLICATIONS. COMMENT: Patient medication list reviewed:Yes- Quality ID# [id number]:Eligible professional attests to docu menting in the medical record they obtained, updated, or reviewed the patient's current medications.. Quality ID 145: Final reports for procedures using fluoroscopy that document radiation exposure lucila lynette, or exposure time and number of fluorographic images (if radiation exposure indices are not avail able) TECHNICAL DOCUMENTATION: JOB ID: [id number] Quality ID # [id number]: Final reports with documentation of one or more dose reduction techniques (e.g., A utomated exposure control, adjustment of the mA and/or kV according to patient size, use of iterative reconstruction technique) 2010 [employer]- All Rights Reserved Reading location - IP/workstation name: [email or web address]
--- NOTE | 2018-03-03 13:55 | PDOC PROGRESS REPORT ---
Subjective Progress Note for:: 03/03/18 Subjective:: Patient is s/p right quadrant CT guided abscess drainage procedure. She denied any chest pain or shortness of breath. No nausea, vomiting, or abdominal pain. No reported fever or chills. Reason For Visit: SEPTICEMIA DUE TO BACTEROIDES FRAGILIS, MET COLON Physical Exam Vital Signs: Temp Pulse Resp BP Pulse Ox 98.7 F 90 20 155/70 H 98 03/03/18 13:07 03/03/18 13:07 03/03/18 13:07 03/03/18 13:07 03/03/18 13:07 Intake & Output 03/02/18 03/03/18 03/04/18 06:59 06:59 06:59 Intake Total 3326 1155 100 Output Total 100 550 Balance 3226 605 100 Weight 80.5 kg 80.2 kg General appearance: PRESENT: no acute distress Head exam: PRESENT: atraumatic, normocephalic Eye exam: PRESENT: conjunctiva pink, EOMI, PERRLA. ABSENT: scleral icterus Ear exam: PRESENT: normal external ear exam Mouth exam: PRESENT: moist Teeth exam: PRESENT: poor dentation Respiratory exam: PRESENT: clear to auscultation [place], decreased breath sounds - at lung bases Cardiovascular exam: PRESENT: RRR. ABSENT: diastolic murmur, rubs, systolic murmur Vascular exam: ABSENT: pallor GI/Abdominal exam: PRESENT: normal bowel sounds, soft, other - RLU drainage tube in situ. ABSENT: distended, guarding, mass, organolmegaly, rebound, tenderness Extremities exam: ABSENT: pedal edema Musculoskeletal exam: PRESENT: deformity - related to multiple joints involvement with arthritis Neurological exam: PRESENT: alert, awake, oriented to person, oriented to place, oriented to time, oriented to situation, CN II-XII grossly intact. ABSENT: [place] r sensory deficit Psychiatric exam: PRESENT: appropriate affect, normal mood. ABSENT: homicidal ideation, suicidal ideation Skin exam: PRESENT: dry, warm Results Laboratory Results: 03/03/18 05:30 03/03/18 05:30 03/03/18 03/03/18 05:30 05:30 WBC 13.5 H RBC 3.14 L Hgb 9.3 L Hct 28.4 L MCV 91 MCH 29.7 MCHC 32.7 RDW 18.0 H Plt Count 144 L Seg Neutrophils % 79.5 H Lymphocytes % 10.7 L Monocytes % 9.3 Eosinophils % 0.2 Basophils % 0.3 Absolute Neutrophils 10.8 H Absolute Lymphocytes 1.4 Absolute Monocytes 1.3 Absolute Eosinophils 0.0 Absolute Basophils 0.0 Sodium 138.8 Potassium 3.6 Chloride 105 Carbon Dioxide 27 Anion Gap 7 BUN 7 Creatinine 0.61 Est GFR ( Amer) > 60 Est GFR (Non-Af Amer) > 60 Glucose 145 H Calcium 9.4 03/01/18 10:30 Clean Catch Midstream Urine Culture - Final Mixed Urogenital Tiffanie Impressions: Chest X-Ray 03/01/18 00:00 IMPRESSION: STABLE CARDIOMEGALY. NO ACUTE FINDINGS. Percutaneous Drainage 03/03/18 00:00 IMPRESSION: CT GUIDED RIGHT LOWER QUADRANT ABSCESS DRAINAGE. GRAM STAIN AND CULTURES PENDING. NO IMMEDIATE COMPLICATIONS. Abdomen/Pelvis CT 03/03/18 08:00 IMPRESSION: Right lower quadrant abscess, better visualized on the current study due to oral contrast. Percutaneous drainage planned for later today Assessment & Plan - Diagnosis (1) Bacterial infection due to Bacteroides fragilis Is this a current diagnosis for this admission?: Yes (2) Uncontrolled diabetes mellitus with hyperglycemia, with long-term current use of insulin Is this a current diagnosis for this admission?: Yes (3) HTN (hypertension) Qualifiers: Hypertension type: essential hypertension Qualified Code(s): I10 - Essential (primary) hypertension Is this a current diagnosis for this admission?: Yes (4) HLD (hyperlipidemia) Qualifiers: Hyperlipidemia type: unspecified Qualified Code(s): E78.5 - Hyperlipidemia, unspecified Is this a current diagnosis for this admission?: Yes (5) GERD (gastroesophageal reflux disease) Qualifiers: Esophagitis presence: without esophagitis Qualified Code(s): K21.9 - Gastro-esophageal reflux disease without esophagitis Is this a current diagnosis for this admission?: Yes (6) History of colon cancer, stage IV Is this a current diagnosis for this admission?: Yes (7) Obesity with body mass index (BMI) of 30.0 to 39.9 Is this a current diagnosis for this admission?: Yes (8) Intra-abdominal abscess post-procedure Is this a current diagnosis for this admission?: Yes Plan: Continue current management with drainage intervention and antibiotic coverage. Follow up on drainage specimen gram stain and culture findings. - Time Time Spent with patient: 25-34 minutes Medications reviewed and adjusted accordingly: Yes Anticipated discharge: Home with Homehealth Within: Other - Inpatient Certification Based on my medical assessment, after consideration of the patient's comorbidities, presenting symptoms, or acuity I expect that the services needed warrant INPATIENT care.: Yes I certify that my determination is in accordance with my understanding of Medicare's requirements for reasonable and necessary INPATIENT services [42 CFR 412.3e].: Yes Medical Necessity: Need Close Monitoring Due to Risk of Patient Decompensation, Need For IV Fluids, Need For Continuous Telemetry Monitoring, Need for IV Antibiotics, Need for Surgery, Risk of Complication if Not Cared For in Hospital, Risk of Diagnosis Which Will Require Inpatient Eval/Care/Monitoring Post Hospital Care: 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 follow up on gram stain and culture findings of drainage specimen.
[2018-03-03] MEDS: ACETAMINOPHEN 325 MG TABLET PO PRN (15:39)
[2018-03-03] MEDS: METOPROLOL SUCCINATE 50 MG TAB.SR.24H PO SCH (21:24)
[2018-03-04] MEDS: PIPERACILLIN SODIUM/TAZOBACTAM 3.375 GM in NORMAL SALINE 100 ML IV SCH ×5 (01:12→23:46)
[2018-03-04] MEDS: LANSOPRAZOLE 30 MG TAB.RAP.DR PO SCH (05:49)
[2018-03-04 05:59] LABS: ABSOLUTE LYMPHOCYTES (AUTO) 1.4 10^3/uL (0.5-4.7); ABSOLUTE NEUT (AUTO) 7.4 10^3/uL (1.7-8.2); BASOPHILS % (AUTO) 0.3 % (0-2); EOSINOPHILS % (AUTO) 0.5 % (0-6); HEMATOCRIT 28.5 % (36.0-47.0); HEMOGLOBIN 9.4 g/dL (12.0-15.5); LYMPHOCYTES % (AUTO) 13.9 % (13-45); MEAN CORPUSCULAR HGB CONC 32.9 g/dL (32.0-36.0); MEAN CORPUSCULAR VOLUME 91 fl (80-97); MONOCYTES % (AUTO) 9.8 % (3-13); PLATELET COUNT 141 10^3/uL (150-450); RED BLOOD COUNT 3.13 10^6/uL (3.72-5.28); RED CELL DISTRIBUTION WIDTH 17.8 % (11.5-14.0); SEGMENTED NEUTROPHILS % (AUTO) 75.5 % (42-78); TOTAL CELLS COUNTED % (AUTO) 100 %; WHITE BLOOD COUNT 9.8 10^3/uL (4.0-10.5)
[2018-03-04 06:21] LABS: ANION GAP 6 (5-19); BLOOD UREA NITROGEN 7 mg/dL (7-20); CALCIUM 9.2 mg/dL (8.4-10.2); CARBON DIOXIDE 27 mmol/L (22-30); CHLORIDE 106 mmol/L (98-107); GLUCOSE 152 mg/dL (75-110); POTASSIUM 3.6 mmol/L (3.6-5.0)
--- NOTE | 2018-03-04 07:37 | PDOC PROGRESS REPORT ---
Subjective Progress Note for:: 03/04/18 Subjective:: Patient denied any fever or chills. No nausea, vomiting or abdominal pain. Remain on IV Zosyn coverage. Drainage specimen culture no growth to date. No chest pain or difficulty with breathing. Reason For Visit: SEPTICEMIA DUE TO BACTEROIDES FRAGILIS, MET COLON Physical Exam Vital Signs: Temp Pulse Resp BP Pulse Ox 98.0 F 79 19 149/59 H 100 03/04/18 04:00 03/04/18 04:00 03/04/18 04:00 03/04/18 04:00 03/04/18 04:00 Intake & Output 03/03/18 03/04/18 03/05/18 06:59 06:59 06:59 Intake Total 1155 1918 Output Total 550 10 Balance 605 1918 -10 Weight 80.2 kg 82.6 kg Physical Exam: General appearance: PRESENT: no acute distress Head exam: PRESENT: atraumatic, normocephalic Eye exam: PRESENT: conjunctiva pink, EOMI, PERRLA. ABSENT: pallor, scleral icterus Ear exam: PRESENT: normal external ear exam Mouth exam: PRESENT: moist Teeth exam: PRESENT: poor dentation Respiratory exam: PRESENT: clear to auscultation [place], decreased breath sounds - at lung bases Cardiovascular exam: PRESENT: RRR. ABSENT: diastolic murmur, rubs, systolic murmur GI/Abdominal exam: PRESENT: normal bowel sounds, soft, other - RLU drainage tube in situ. ABSENT: distended, guarding, mass, organolmegaly, rebound, tenderness Extremities exam: ABSENT: pedal edema Musculoskeletal exam: PRESENT: deformity - related to multiple joints involvement with arthritis Neurological exam: PRESENT: alert, awake, oriented to person, oriented to place, oriented to time, oriented to situation, CN II-XII grossly intact. ABSENT: motor sensory deficit Psychiatric exam: PRESENT: appropriate affect, normal mood. ABSENT: homicidal ideation, suicidal ideation Skin exam: PRESENT: dry, warm Results Laboratory Results: 03/04/18 04:51 03/04/18 04:51 03/04/18 03/04/18 04:51 04:51 WBC 9.8 RBC 3.13 L Hgb 9.4 L Hct 28.5 L MCV 91 MCH 30.0 MCHC 32.9 RDW 17.8 H Plt Count 141 L Seg Neutrophils % 75.5 Lymphocytes % 13.9 Monocytes % 9.8 Eosinophils % 0.5 Basophils % 0.3 Absolute Neutrophils 7.4 Absolute Lymphocytes 1.4 Absolute Monocytes 1.0 Absolute Eosinophils 0.0 Absolute Basophils 0.0 Sodium 139.0 Potassium 3.6 Chloride 106 Carbon Dioxide 27 Anion Gap 6 BUN 7 Creatinine 0.59 Est GFR ( Amer) > 60 Est GFR (Non-Af Amer) > 60 Glucose 152 H Calcium 9.2 03/01/18 10:30 Clean Catch Midstream Urine Culture - Final Mixed Urogenital Tiffanie Impressions: Chest X-Ray 03/01/18 00:00 IMPRESSION: STABLE CARDIOMEGALY. NO ACUTE FINDINGS. Percutaneous Drainage 03/03/18 00:00 IMPRESSION: CT GUIDED RIGHT LOWER QUADRANT ABSCESS DRAINAGE. GRAM STAIN AND CULTURES PENDING. NO IMMEDIATE COMPLICATIONS. Abdomen/Pelvis CT 03/03/18 08:00 IMPRESSION: Right lower quadrant abscess, better visualized on the current study due to oral contrast. Percutaneous drainage planned for later today Assessment & Plan - Diagnosis (1) Bacterial infection due to Bacteroides fragilis Is this a current diagnosis for this admission?: Yes (2) Uncontrolled diabetes mellitus with hyperglycemia, with long-term current use of insulin Is this a current diagnosis for this admission?: Yes (3) HTN (hypertension) Qualifiers: Hypertension type: essential hypertension Qualified Code(s): I10 - Essential (primary) hypertension Is this a current diagnosis for this admission?: Yes (4) HLD (hyperlipidemia) Qualifiers: Hyperlipidemia type: unspecified Qualified Code(s): E78.5 - Hyperlipidemia, unspecified Is this a current diagnosis for this admission?: Yes (5) GERD (gastroesophageal reflux disease) Qualifiers: Esophagitis presence: without esophagitis Qualified Code(s): K21.9 - Gastro-esophageal reflux disease without esophagitis Is this a current diagnosis for this admission?: Yes (6) History of colon cancer, stage IV Is this a current diagnosis for this admission?: Yes (7) Obesity with body mass index (BMI) of 30.0 to 39.9 Is this a current diagnosis for this admission?: Yes (8) Intra-abdominal abscess post-procedure Is this a current diagnosis for this admission?: Yes - Time Time Spent with patient: 25-34 minutes Medications reviewed and adjusted accordingly: Yes Anticipated discharge: SNF Within: Other - Inpatient Certification Based on my medical assessment, after consideration of the patient's comorbidities, presenting symptoms, or acuity I expect that the services needed warrant INPATIENT care.: Yes I certify that my determination is in accordance with my understanding of Medicare's requirements for reasonable and necessary INPATIENT services [42 CFR 412.3e].: Yes Medical Necessity: Need Close Monitoring Due to Risk of Patient Decompensation, Need For IV Fluids, Need For Continuous Telemetry Monitoring, Need for IV Antibiotics, Risk of Complication if Not Cared For in Hospital Post Hospital Care: D/C or Transfer Summary - Plan Summary Plan Summary: Continue current medication management. Follow up on culture findings.
[2018-03-04] MEDS: INSULIN LISPRO 100 UNIT/ML 3 ML VIAL SUBCUT PRN (08:42)
[2018-03-04] MEDS: HUM INSULIN NPH/REG INSULIN HM 100 UNIT/1 ML 3 ML SUBCUT SCH (08:44)
[2018-03-04] MEDS: METFORMIN HCL 500 MG TABLET PO SCH ×2 (08:45→16:05)
[2018-03-04] MEDS: AMLODIPINE BESYLATE 5 MG TABLET PO SCH ×2 (09:20→21:28)
[2018-03-04] MEDS: LOSARTAN POTASSIUM 50 MG TABLET PO SCH (09:20)
[2018-03-04] MEDS: LORATADINE 10 MG TABLET PO SCH (09:20)
[2018-03-04] MEDS: POLYETHYLENE GLYCOL 3350 POWDER 17 GM/1 PACKET PO SCH (09:21)
[2018-03-04] MEDS: NORMAL SALINE 1000 ML 1,000 ML IV PRN (09:22)
[2018-03-04] MEDS: ACETAMINOPHEN 325 MG TABLET PO PRN (16:07)
[2018-03-04] MEDS: METOPROLOL SUCCINATE 50 MG TAB.SR.24H PO SCH (21:28)
--- NOTE | 2018-03-04 21:30 | PDOC PROGRESS REPORT ---
Subjective Progress Note for:: 03/04/18 Subjective:: Denies any significant pains. Post IR drainage of RLQ abscess 03/02/18 Reason For Visit: SEPTICEMIA DUE TO BACTEROIDES FRAGILIS, MET COLON Physical Exam Vital Signs: Temp Pulse Resp BP Pulse Ox 97.2 F 84 19 159/72 H 100 03/04/18 16:08 03/04/18 16:08 03/04/18 16:08 03/04/18 16:08 03/04/18 16:08 Intake & Output 03/03/18 03/04/18 03/05/18 06:59 06:59 06:59 Intake Total 1155 1918 1579 Output Total 550 70 Balance 605 1918 1509 Weight 80.2 kg 82.6 kg Exam: Abdomen is soft and mild tenderness RLQ. Catheter drainage about 30 ccs purulent material. Results Laboratory Results: 03/04/18 04:51 03/04/18 04:51 03/04/18 03/04/18 04:51 04:51 WBC 9.8 RBC 3.13 L Hgb 9.4 L Hct 28.5 L MCV 91 MCH 30.0 MCHC 32.9 RDW 17.8 H Plt Count 141 L Seg Neutrophils % 75.5 Lymphocytes % 13.9 Monocytes % 9.8 Eosinophils % 0.5 Basophils % 0.3 Absolute Neutrophils 7.4 Absolute Lymphocytes 1.4 Absolute Monocytes 1.0 Absolute Eosinophils 0.0 Absolute Basophils 0.0 Sodium 139.0 Potassium 3.6 Chloride 106 Carbon Dioxide 27 Anion Gap 6 BUN 7 Creatinine 0.59 Est GFR ( Amer) > 60 Est GFR (Non-Af Amer) > 60 Glucose 152 H Calcium 9.2 Impressions: Chest X-Ray 03/01/18 00:00 IMPRESSION: STABLE CARDIOMEGALY. NO ACUTE FINDINGS. Percutaneous Drainage 03/03/18 00:00 IMPRESSION: CT GUIDED RIGHT LOWER QUADRANT ABSCESS DRAINAGE. GRAM STAIN AND CULTURES PENDING. NO IMMEDIATE COMPLICATIONS. Abdomen/Pelvis CT 03/03/18 08:00 IMPRESSION: Right lower quadrant abscess, better visualized on the current study due to oral contrast. Percutaneous drainage planned for later today Assessment & Plan - Time Time Spent with patient: 15-24 minutes - Inpatient Certification Medical Necessity: Need for IV Antibiotics - Plan Summary Plan Summary: Continue IV antibiotics Await C/S
[2018-03-05] MEDS: NORMAL SALINE 1000 ML 1,000 ML IV PRN (03:10)
[2018-03-05] MEDS: LANSOPRAZOLE 30 MG TAB.RAP.DR PO SCH (05:05)
[2018-03-05] MEDS: PIPERACILLIN SODIUM/TAZOBACTAM 3.375 GM in NORMAL SALINE 100 ML IV SCH ×3 (05:05→17:23)
--- NOTE | 2018-03-05 08:04 | PDOC PROGRESS REPORT ---
Subjective Progress Note for:: 03/05/18 Subjective:: Patient denied any fever or chills. No nausea, vomiting or abdominal pain. Remain on IV Zosyn coverage. No chest pain or difficulty with breathing. Reason For Visit: SEPTICEMIA DUE TO BACTEROIDES FRAGILIS, MET COLON Physical Exam Vital Signs: Temp Pulse Resp BP Pulse Ox 99.2 F 86 19 156/69 H 97 03/05/18 03:50 03/05/18 03:50 03/04/18 20:00 03/05/18 03:50 03/05/18 03:50 Intake & Output 03/04/18 03/05/18 03/06/18 06:59 06:59 06:59 Intake Total 191 2779 Output Total 70 Balance 1917 2709 Weight 82.6 kg 83.2 kg Physical Exam: General appearance: PRESENT: no acute distress Head exam: PRESENT: atraumatic, normocephalic Eye exam: PRESENT: conjunctiva pink, EOMI, PERRLA. ABSENT: pallor, scleral icte kristen Ear exam: PRESENT: normal external ear exam Mouth exam: PRESENT: moist Teeth exam: PRESENT: poor dentition Respiratory exam: PRESENT: clear to auscultation [place], decreased breath sounds - at lung bases Cardiovascular exam: PRESENT: RRR. ABSENT: diastolic murmur, rubs, systolic murmur GI/Abdominal exam: PRESENT: normal bowel sounds, soft, other - RLU drainage tube in situ. ABSENT: distended, guarding, mass, organomegaly, rebound, tenderness Extremities exam: ABSENT: pedal edema Musculoskeletal exam: PRESENT: deformity - related to multiple joints involvement with arthritis Neurological exam: PRESENT: alert, awake, oriented to person, oriented to place, oriented to time, oriented to situation, CN II-XII grossly intact. ABSENT: motor sensory deficit Psychiatric exam: PRESENT: appropriate affect, normal mood. ABSENT: homicidal ideation, suicidal ideation Skin exam: PRESENT: dry, warm Results Laboratory Results: 03/04/18 04:51 03/04/18 04:51 Impressions: Chest X-Ray 03/01/18 00:00 IMPRESSION: STABLE CARDIOMEGALY. NO ACUTE FINDINGS. Percutaneous Drainage 03/03/18 00:00 IMPRESSION: CT GUIDED RIGHT LOWER QUADRANT ABSCESS DRAINAGE. GRAM STAIN AND CULTURES PENDING. NO IMMEDIATE COMPLICATIONS. Abdomen/Pelvis CT 01/21/19 08:00 IMPRESSION: Right lower quadrant abscess, better visualized on the current study due to oral contrast. Percutaneous drainage planned for later today Assessment & Plan - Diagnosis (1) Bacterial infection due to Bacteroides fragilis Is this a current diagnosis for this admission?: Yes (2) Uncontrolled diabetes mellitus with hyperglycemia, with long-term current use of insulin Is this a current diagnosis for this admission?: Yes (3) HTN (hypertension) Qualifiers: Hypertension type: essential hypertension Qualified Code(s): I10 - Essential (primary) hypertension Is this a current diagnosis for this admission?: Yes (4) HLD (hyperlipidemia) Qualifiers: Hyperlipidemia type: unspecified Qualified Code(s): E78.5 - Hyperlipidemia, unspecified Is this a current diagnosis for this admission?: Yes (5) GERD (gastroesophageal reflux disease) Qualifiers: Esophagitis presence: without esophagitis Qualified Code(s): K21.9 - Gastro-esophageal reflux disease without esophagitis Is this a current diagnosis for this admission?: Yes (6) History of colon cancer, stage IV Is this a current diagnosis for this admission?: Yes (7) Obesity with body mass index (BMI) of 30.0 to 39.9 Is this a current diagnosis for this admission?: Yes (8) Intra-abdominal abscess post-procedure Is this a current diagnosis for this admission?: Yes - Time Time Spent with patient: 25-34 minutes Medications reviewed and adjusted accordingly: Yes Anticipated discharge: SNF Within: Other - Inpatient Certification Based on my medical assessment, after consideration of the patient's comorbidities, presenting symptoms, or acuity I expect that the services needed warrant INPATIENT care.: Yes I certify that my determination is in accordance with my understanding of Medicare's requirements for reasonable and necessary INPATIENT services [42 CFR 412.3e].: Yes Medical Necessity: Significant Comorbidiites Make Outpatient Treatment Too Risky, Need Close Monitoring Due to Risk of Patient Decompensation, Need For IV Fluids, Need For Continuous Telemetry Monitoring, Need for IV Antibiotics, Need for Surgery, Risk of Complication if Not Cared For in Hospital, Risk of Diagnosis Which Will Require Inpatient Eval/Care/Monitoring Post Hospital Care: D/C or Transfer Summary - Plan Summary Plan Summary: Drained abscess grew E.coli susceptible to Zosyn. She will remain on IV antibiotic support. Follow up on blood culture findings. encourage mobility with walker assistance.
[2018-03-05] MEDS: HUM INSULIN NPH/REG INSULIN HM 100 UNIT/1 ML 3 ML SUBCUT SCH (08:51)
[2018-03-05] MEDS: ACETAMINOPHEN 325 MG TABLET PO PRN (08:51)
[2018-03-05] MEDS: METFORMIN HCL 500 MG TABLET PO SCH ×2 (08:51→15:28)
[2018-03-05] MEDS: LOSARTAN POTASSIUM 50 MG TABLET PO SCH (09:21)
[2018-03-05] MEDS: AMLODIPINE BESYLATE 5 MG TABLET PO SCH ×2 (09:22→21:14)
[2018-03-05] MEDS: LORATADINE 10 MG TABLET PO SCH (09:58)
[2018-03-05] MEDS: POLYETHYLENE GLYCOL 3350 POWDER 17 GM/1 PACKET PO SCH (09:59)
--- NOTE | 2018-03-05 12:00 | PDOC PROGRESS REPORT ---
Subjective Progress Note for:: 03/05/18 Subjective:: no complaints. no abdominal pains Reason For Visit: SEPTICEMIA DUE TO BACTEROIDES FRAGILIS, MET COLON Physical Exam Vital Signs: Temp Pulse Resp BP Pulse Ox 99.4 F 84 18 177/72 H 99 03/05/18 07:29 03/05/18 07:29 03/05/18 07:29 03/05/18 07:29 03/05/18 07:29 Intake & Output 03/04/18 03/05/18 03/06/18 06:59 06:59 06:59 Intake Total 1918 2779 Output Total 70 Balance 1918 2709 Weight 82.6 kg 83.2 kg Exam: abdomen is soft and non tender. Small amount of drainage drain site about 5 ccs Results Laboratory Results: 03/04/18 04:51 03/04/18 04:51 Impressions: Chest X-Ray 03/01/18 00:00 IMPRESSION: STABLE CARDIOMEGALY. NO ACUTE FINDINGS. Percutaneous Drainage 03/03/18 00:00 IMPRESSION: CT GUIDED RIGHT LOWER QUADRANT ABSCESS DRAINAGE. GRAM STAIN AND CULTURES PENDING. NO IMMEDIATE COMPLICATIONS. Abdomen/Pelvis CT 03/03/18 08:00 IMPRESSION: Right lower quadrant abscess, better visualized on the current study due to oral contrast. Percutaneous drainage planned for later today Assessment & Plan - Time Time Spent with patient: 15-24 minutes - Inpatient Certification Medical Necessity: Need for IV Antibiotics - Plan Summary Plan Summary: Continue drain and IV antibiotics
--- NOTE | 2018-03-05 16:54 | Progress Note ---
Provider Note Provider Note: ID Consult Note Asked to review patient's chart by Pharmacy. Pt not seen or examined. Ms. 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 She returned to the hospital on 02/28/18 with c/o dizziness and was found to have RLQ TTP, tachycardia and leukocytosis. Blood cultures were obtained, which have remained negative, and empirically Zosyn was started. CT of the abdomen and pelvis with PO contrast showed findings c/w abscess in RLQ along the R hemicolectomy surgical bed, and a pigtail catheter was placed on 03/03/18. Preliminarily culture from the abscess material has been reported as showing growth of E coli. Impression/Recommendations Although only E coli has been identified thus far, pt was on antibiotics when cx was obtained, the results are preliminary, and this is likely to be polymicrobial in nature. Continuing Zosyn is reasonable, although I doubt that antipseudomonal activity per se is needed. Rocephin IV plus PO Flagyl is also an acceptable alternative. If adequate source control has been achieved with percutaneous drain placement, duration of therapy should be limited to 4-7 days. Matthew Moreno MD [facility] pager [phone]
[2018-03-05] MEDS: METOPROLOL SUCCINATE 50 MG TAB.SR.24H PO SCH (21:14)
[2018-03-06] MEDS: PIPERACILLIN SODIUM/TAZOBACTAM 3.375 GM in NORMAL SALINE 100 ML IV SCH ×5 (00:37→23:12)
[2018-03-06] MEDS: NORMAL SALINE 1000 ML 1,000 ML IV PRN (00:42)
[2018-03-06] MEDS: LANSOPRAZOLE 30 MG TAB.RAP.DR PO SCH (05:07)
--- NOTE | 2018-03-06 08:06 | PDOC PROGRESS REPORT ---
Subjective Progress Note for:: 03/06/18 Reason For Visit: SEPTICEMIA DUE TO BACTEROIDES FRAGILIS, MET COLON rlq abscess post rt hemicolectomy s/p ir drain Physical Exam Vital Signs: Temp Pulse Resp BP Pulse Ox 97.5 F 83 20 154/75 H 100 03/05/18 23:22 03/06/18 02:00 03/05/18 20:01 03/05/18 23:22 03/05/18 23:22 Intake & Output 03/05/18 03/06/18 03/07/18 06:59 06:59 06:59 Intake Total 2779 1854 Output Total 70 30 Balance 2709 1824 Weight 83.2 kg 82.1 kg General appearance: PRESENT: no acute distress Respiratory exam: PRESENT: clear to auscultation [place] GI/Abdominal exam: PRESENT: soft - abd soft, sl tenderness in rlq + bs drain in place with seropuriulent drainage., tenderness Results Laboratory Results: 03/04/18 04:51 03/04/18 04:51 02/28/18 17:00 Blood Blood Culture - Final NO GROWTH IN 5 DAYS 02/28/18 15:21 Blood Blood Culture - Final NO GROWTH IN 5 DAYS Impressions: Chest X-Ray 03/01/18 00:00 IMPRESSION: STABLE CARDIOMEGALY. NO ACUTE FINDINGS. Percutaneous Drainage 03/03/18 00:00 IMPRESSION: CT GUIDED RIGHT LOWER QUADRANT ABSCESS DRAINAGE. GRAM STAIN AND CULTURES PENDING. NO IMMEDIATE COMPLICATIONS. Abdomen/Pelvis CT 03/03/18 08:00 IMPRESSION: Right lower quadrant abscess, better visualized on the current study due to oral contrast. Percutaneous drainage planned for later today Assessment & Plan - Inpatient Certification Medical Necessity: Need for IV Antibiotics - Plan Summary Plan Summary: pt s/p ir drain now avery po wbc wnl pain controlled drain still with seropurulent drainage recommend, ok from surgery standpt for dc home with drain in place drain can be removed in 5-7 days in sugery clinic if pt is discharged.
[2018-03-06] MEDS: HUM INSULIN NPH/REG INSULIN HM 100 UNIT/1 ML 3 ML SUBCUT SCH (09:05)
[2018-03-06] MEDS: METFORMIN HCL 500 MG TABLET PO SCH ×2 (09:05→15:04)
[2018-03-06] MEDS: AMLODIPINE BESYLATE 5 MG TABLET PO SCH ×2 (09:17→21:17)
[2018-03-06] MEDS: POLYETHYLENE GLYCOL 3350 POWDER 17 GM/1 PACKET PO SCH (09:18)
[2018-03-06] MEDS: LORATADINE 10 MG TABLET PO SCH (09:18)
[2018-03-06] MEDS: LOSARTAN POTASSIUM 50 MG TABLET PO SCH (09:18)
--- NOTE | 2018-03-06 17:35 | PDOC PROGRESS REPORT ---
Subjective Progress Note for:: 03/06/18 Subjective:: Patient denied any fever or chills. Left lower abdominal pain persist. Drainage in situ with increase content. No nausea or vomiting. PO intake remain poor with episodes of hypoglycemia. Remain on IV Zosyn coverage. No chest pain or difficulty with breathing. Reason For Visit: SEPTICEMIA DUE TO BACTEROIDES FRAGILIS, MET COLON Physical Exam Vital Signs: Temp Pulse Resp BP Pulse Ox 98.5 F 89 20 156/75 H 100 03/06/18 14:52 03/06/18 14:52 03/06/18 14:52 03/06/18 14:52 03/06/18 14:52 Intake & Output 03/05/18 03/06/18 03/07/18 06:59 06:59 06:59 Intake Total 2779 1854 100 Output Total 70 30 Balance 2709 1824 100 Weight 83.2 kg 82.1 kg Physical Exam: General appearance: PRESENT: no acute distress Head exam: PRESENT: atraumatic, normocephalic Eye exam: PRESENT: conjunctiva pink, EOMI, PERRLA. ABSENT: pallor, scleral icterus Ear exam: PRESENT: normal external ear exam Mouth exam: PRESENT: moist Teeth exam: PRESENT: poor dentition Respiratory exam: PRESENT: clear to auscultation [place], decreased breath sounds - at lung bases Cardiovascular exam: PRESENT: RRR. ABSENT: diastolic murmur, rubs, systolic murmur GI/Abdominal exam: PRESENT: normal bowel sounds, soft, tenderness to palpation over RLQ region other - RLU drainage tube in situ. ABSENT: distended, guarding, mass, organomegaly, rebound Extremities exam: ABSENT: pedal edema Musculoskeletal exam: PRESENT: deformity - related to multiple joints involvement with arthritis Neurological exam: PRESENT: alert, awake, oriented to person, oriented to place, oriented to time, oriented to situation, CN II-XII grossly intact. ABSENT: motor sensory deficit Psychiatric exam: PRESENT: appropriate affect, normal mood. ABSENT: homicidal ideation, suicidal ideation Skin exam: PRESENT: dry, warm Results Laboratory Results: 03/04/18 04:51 03/04/18 04:51 02/28/18 17:00 Blood Blood Culture - Final NO GROWTH IN 5 DAYS 02/28/18 15:21 Blood Blood Culture - Final NO GROWTH IN 5 DAYS Impressions: Chest X-Ray 03/01/18 00:00 IMPRESSION: STABLE CARDIOMEGALY. NO ACUTE FINDINGS. Percutaneous Drainage 03/03/18 00:00 IMPRESSION: CT GUIDED RIGHT LOWER QUADRANT ABSCESS DRAINAGE. GRAM STAIN AND CULTURES PENDING. NO IMMEDIATE COMPLICATIONS. Abdomen/Pelvis CT 03/03/18 08:00 IMPRESSION: Right lower quadrant abscess, better visualized on the current study due to oral contrast. Percutaneous drainage planned for later today Assessment & Plan - Diagnosis (1) Bacterial infection due to Bacteroides fragilis Is this a current diagnosis for this admission?: Yes (2) Uncontrolled diabetes mellitus with hyperglycemia, with long-term current use of insulin Is this a current diagnosis for this admission?: Yes (3) HTN (hypertension) Qualifiers: Hypertension type: essential hypertension Qualified Code(s): I10 - Essential (primary) hypertension Is this a current diagnosis for this admission?: Yes (4) HLD (hyperlipidemia) Qualifiers: Hyperlipidemia type: unspecified Qualified Code(s): E78.5 - Hyperlipidemia, unspecified Is this a current diagnosis for this admission?: Yes (5) GERD (gastroesophageal reflux disease) Qualifiers: Esophagitis presence: without esophagitis Qualified Code(s): K21.9 - Gastro-esophageal reflux disease without esophagitis Is this a current diagnosis for this admission?: Yes (6) History of colon cancer, stage IV Is this a current diagnosis for this admission?: Yes (7) Obesity with body mass index (BMI) of 30.0 to 39.9 Is this a current diagnosis for this admission?: Yes (8) Intra-abdominal abscess post-procedure Is this a current diagnosis for this admission?: Yes - Time Time Spent with patient: 25-34 minutes Medications reviewed and adjusted accordingly: Yes Anticipated discharge: SNF - Awaiting response from SNF. - Inpatient Certification Based on my medical assessment, after consideration of the patient's comorbidities, presenting symptoms, or acuity I expect that the services needed warrant INPATIENT care.: Yes I certify that my determination is in accordance with my understanding of Medicare's requirements for reasonable and necessary INPATIENT services [42 CFR 412.3e].: Yes Medical Necessity: Need Close Monitoring Due to Risk of Patient Decompensation, Need For IV Fluids, Need For Continuous Telemetry Monitoring, Need for IV Antibiotics, Risk of Complication if Not Cared For in Hospital, Risk of Diagnosis Which Will Require Inpatient Eval/Care/Monitoring Post Hospital Care: D/C or Transfer Summary - Plan Summary Plan Summary: Continue IV Zosyn coverage. D/C all diabetic medication except sliding scale Humolog insulin coverage pending improvement in oral intake. follow up on efforts at disposition.
[2018-03-06] MEDS: METOPROLOL SUCCINATE 50 MG TAB.SR.24H PO SCH (21:17)
[2018-03-07] MEDS: PIPERACILLIN SODIUM/TAZOBACTAM 3.375 GM in NORMAL SALINE 100 ML IV SCH ×2 (05:24→11:51)
[2018-03-07] MEDS: LANSOPRAZOLE 30 MG TAB.RAP.DR PO SCH (05:31)
[2018-03-07] MEDS: HUM INSULIN NPH/REG INSULIN HM 100 UNIT/1 ML 3 ML SUBCUT SCH (08:49)
[2018-03-07] MEDS: METFORMIN HCL 500 MG TABLET PO SCH ×2 (08:49→16:16)
[2018-03-07] MEDS: POLYETHYLENE GLYCOL 3350 POWDER 17 GM/1 PACKET PO SCH (09:23)
[2018-03-07] MEDS: LOSARTAN POTASSIUM 50 MG TABLET PO SCH (09:23)
[2018-03-07] MEDS: AMLODIPINE BESYLATE 5 MG TABLET PO SCH ×2 (09:24→21:16)
[2018-03-07] MEDS: LORATADINE 10 MG TABLET PO SCH (09:24)
[2018-03-07] MEDS: NORMAL SALINE 1000 ML 1,000 ML IV PRN (11:54)
--- NOTE | 2018-03-07 16:36 | PDOC PROGRESS REPORT ---
Subjective Progress Note for:: 03/07/18 Subjective:: Patient denied any chest pain, difficulty with breathing, fever or chills. There is continued episodes of low blood glucose level. Her Novolin 70/30 insulin remain on hold. Left lower abdominal pain persist. No nausea or vomiting. PO intake remain poor. She reported poor strength and difficult participation in physical therapy session today. Drainage in situ with increase content. Remain on IV Zosyn coverage. Reason For Visit: SEPTICEMIA DUE TO BACTEROIDES FRAGILIS, MET COLON Physical Exam Vital Signs: Temp Pulse Resp BP Pulse Ox 97.8 F 88 18 154/73 H 98 03/07/18 07:28 03/07/18 14:00 03/07/18 07:28 03/07/18 07:28 03/07/18 07:28 Intake & Output 03/06/18 03/07/18 03/08/18 06:59 06:59 06:59 Intake Total 1854 1784 Output Total 30 Balance 1824 1784 Weight 82.1 kg 87.1 kg Physical Exam: General appearance: PRESENT: no acute distress Head exam: PRESENT: atraumatic, normocephalic Eye exam: PRESENT: conjunctiva pink, EOMI, PERRLA. ABSENT: pallor, scleral icterus Ear exam: PRESENT: normal external ear exam Mouth exam: PRESENT: moist Teeth exam: PRESENT: poor dentition Respiratory exam: PRESENT: clear to auscultation [place], decreased breath sounds - at lung bases Cardiovascular exam: PRESENT: RRR. ABSENT: diastolic murmur, rubs, systolic murmur GI/Abdominal exam: PRESENT: normal bowel sounds, soft, tenderness to palpation over RLQ region other - RLQ drainage tube in situ with about 35 cc of blody collection. ABSENT: distended, guarding, mass, organomegaly, rebound Extremities exam: ABSENT: pedal edema Musculoskeletal exam: PRESENT: deformity - related to multiple joints involvement with arthritis Neurological exam: PRESENT: alert, awake, oriented to person, oriented to place, oriented to time, oriented to situation, CN II-XII grossly intact. ABSENT: motor sensory deficit Psychiatric exam: PRESENT: appropriate affect, normal mood. ABSENT: homicidal ideation, suicidal ideation Skin exam: PRESENT: dry, warm Results Laboratory Results: 03/04/18 04:51 03/04/18 04:51 03/03/18 12:05 Abdomen - Abscess Gram Stain - Final 03/03/18 12:05 Abdomen - Abscess Body Fluid Culture - Final Escherichia Coli Bacteroides Fragilis Group Impressions: Chest X-Ray 03/01/18 00:00 IMPRESSION: STABLE CARDIOMEGALY. NO ACUTE FINDINGS. Percutaneous Drainage 03/03/18 00:00 IMPRESSION: CT GUIDED RIGHT LOWER QUADRANT ABSCESS DRAINAGE. GRAM STAIN AND CULTURES PENDING. NO IMMEDIATE COMPLICATIONS. Abdomen/Pelvis CT 03/03/18 08:00 IMPRESSION: Right lower quadrant abscess, better visualized on the current study due to oral contrast. Percutaneous drainage planned for later today Assessment & Plan - Diagnosis (1) Bacterial infection due to Bacteroides fragilis Is this a current diagnosis for this admission?: Yes (2) Uncontrolled diabetes mellitus with hyperglycemia, with long-term current use of insulin Is this a current diagnosis for this admission?: Yes (3) HTN (hypertension) Qualifiers: Hypertension type: essential hypertension Qualified Code(s): I10 - Essential (primary) hypertension Is this a current diagnosis for this admission?: Yes (4) HLD (hyperlipidemia) Qualifiers: Hyperlipidemia type: unspecified Qualified Code(s): E78.5 - Hyperlipidemia, unspecified Is this a current diagnosis for this admission?: Yes (5) GERD (gastroesophageal reflux disease) Qualifiers: Esophagitis presence: without esophagitis Qualified Code(s): K21.9 - Gastro-esophageal reflux disease without esophagitis Is this a current diagnosis for this admission?: Yes (6) History of colon cancer, stage IV Is this a current diagnosis for this admission?: Yes (7) Obesity with body mass index (BMI) of 30.0 to 39.9 Is this a current diagnosis for this admission?: Yes (8) Intra-abdominal abscess post-procedure Is this a current diagnosis for this admission?: Yes - Time Time Spent with patient: 25-34 minutes Medications reviewed and adjusted accordingly: Yes Anticipated discharge: SNF - for short term rehabilitation. Awaiting response from [facility] regarding referral. - Inpatient Certification Based on my medical assessment, after consideration of the patient's comorbidities, presenting symptoms, or acuity I expect that the services needed warrant INPATIENT care.: Yes I certify that my determination is in accordance with my understanding of Medicare's requirements for reasonable and necessary INPATIENT services [42 CFR 412.3e].: Yes Medical Necessity: Need Close Monitoring Due to Risk of Patient Decompensation, Need For IV Fluids, Need For Continuous Telemetry Monitoring, Need for IV Antibiotics, Need for Surgery, Risk of Complication if Not Cared For in Hospital Post Hospital Care: D/C or Transfer Summary - Plan Summary Plan Summary: Continue current antibiotic therapy. Follow up on possible transfer to SNF for short term rehabilitation.
--- NOTE | 2018-03-07 20:22 | PDOC PROGRESS REPORT ---
Subjective Progress Note for:: 03/07/18 Subjective:: Denies pains Reason For Visit: SEPTICEMIA DUE TO BACTEROIDES FRAGILIS, MET COLON Physical Exam Vital Signs: Temp Pulse Resp BP Pulse Ox 97.8 F 88 18 154/73 H 98 03/07/18 07:28 03/07/18 14:00 03/07/18 07:28 03/07/18 07:28 03/07/18 07:28 Intake & Output 03/06/18 03/07/18 03/08/18 06:59 06:59 06:59 Intake Total 1854 1784 460 Output Total 30 Balance 1824 1784 460 Weight 82.1 kg 87.1 kg Exam: abdomen is soft with mild tenderness along RLQ drainage catheter Results Laboratory Results: 03/04/18 04:51 03/04/18 04:51 03/03/18 12:05 Abdomen - Abscess Gram Stain - Final 03/03/18 12:05 Abdomen - Abscess Body Fluid Culture - Final Escherichia Coli Bacteroides Fragilis Group Impressions: Chest X-Ray 03/01/18 00:00 IMPRESSION: STABLE CARDIOMEGALY. NO ACUTE FINDINGS. Percutaneous Drainage 03/03/18 00:00 IMPRESSION: CT GUIDED RIGHT LOWER QUADRANT ABSCESS DRAINAGE. GRAM STAIN AND CULTURES PENDING. NO IMMEDIATE COMPLICATIONS. Abdomen/Pelvis CT 03/03/18 08:00 IMPRESSION: Right lower quadrant abscess, better visualized on the current study due to oral contrast. Percutaneous drainage planned for later today Assessment & Plan - Time Time Spent with patient: 15-24 minutes - Inpatient Certification Medical Necessity: Need for IV Antibiotics - Plan Summary Plan Summary: Leave drainage catheter over weekend continue IV antibiotic therapy
[2018-03-07] MEDS: METOPROLOL SUCCINATE 50 MG TAB.SR.24H PO SCH (21:16)
[2018-03-07] MEDS: INSULIN LISPRO 100 UNIT/ML 3 ML VIAL SUBCUT PRN (22:42)
[2018-03-08] MEDS: ACETAMINOPHEN 325 MG TABLET PO PRN (05:05)
[2018-03-08] MEDS: LANSOPRAZOLE 30 MG TAB.RAP.DR PO SCH (05:05)
[2018-03-08] MEDS: NORMAL SALINE 1000 ML 1,000 ML IV PRN (05:13)
[2018-03-08] MEDS: HUM INSULIN NPH/REG INSULIN HM 100 UNIT/1 ML 3 ML SUBCUT SCH (08:28)
[2018-03-08] MEDS: METFORMIN HCL 500 MG TABLET PO SCH ×2 (08:28→17:04)
--- NOTE | 2018-03-08 09:19 | PDOC PROGRESS REPORT ---
Subjective Progress Note for:: 03/08/18 Reason For Visit: SEPTICEMIA DUE TO BACTEROIDES FRAGILIS, MET COLON Physical Exam Vital Signs: Temp Pulse Resp BP Pulse Ox 98.8 F 77 17 149/70 H 100 03/08/18 07:43 03/08/18 07:43 03/08/18 07:43 03/08/18 07:43 03/08/18 07:43 Intake & Output 03/07/18 03/08/18 03/09/18 06:59 06:59 06:59 Intake Total 1784 1800 Balance 1784 1800 Weight 87.1 kg 89.1 kg General appearance: PRESENT: no acute distress, cooperative GI/Abdominal exam: PRESENT: soft - drain in place, min serous output Neurological exam: PRESENT: alert Skin exam: PRESENT: dry Results Laboratory Results: 03/04/18 04:51 03/04/18 04:51 03/03/18 12:05 Abdomen - Abscess Gram Stain - Final 03/03/18 12:05 Abdomen - Abscess Body Fluid Culture - Final Escherichia Coli Bacteroides Fragilis Group Impressions: Chest X-Ray 03/01/18 00:00 IMPRESSION: STABLE CARDIOMEGALY. NO ACUTE FINDINGS. Percutaneous Drainage 03/03/18 00:00 IMPRESSION: CT GUIDED RIGHT LOWER QUADRANT ABSCESS DRAINAGE. GRAM STAIN AND CULTURES PENDING. NO IMMEDIATE COMPLICATIONS. Abdomen/Pelvis CT 03/03/18 08:00 IMPRESSION: Right lower quadrant abscess, better visualized on the current study due to oral contrast. Percutaneous drainage planned for later today Assessment & Plan - Plan Summary Plan Summary: afeb vss pt avery po intake having nl bm's drain op min last few days wbc wnl abx completed last pm plan will repeat ct of abd, no contrast if abscess resolved, will dc drain
[2018-03-08] MEDS: LOSARTAN POTASSIUM 50 MG TABLET PO SCH (10:46)
[2018-03-08] MEDS: POLYETHYLENE GLYCOL 3350 POWDER 17 GM/1 PACKET PO SCH (10:46)
[2018-03-08] MEDS: AMLODIPINE BESYLATE 5 MG TABLET PO SCH ×2 (10:46→21:32)
[2018-03-08] MEDS: LORATADINE 10 MG TABLET PO SCH (10:46)
--- NOTE | 2018-03-08 18:31 | PDOC PROGRESS REPORT ---
Subjective Progress Note for:: 03/08/18 Subjective:: Patient seen by the bedside, history of colon cancer, stage IV, she was admitted for the management of abdominal abscess, she was seen by the bedside today she has no new complaints Reason For Visit: SEPTICEMIA DUE TO BACTEROIDES FRAGILIS, MET COLON Physical Exam Vital Signs: Temp Pulse Resp BP Pulse Ox 98.5 F 82 20 153/74 H 100 03/08/18 11:39 03/08/18 11:39 03/08/18 11:39 03/08/18 11:39 03/08/18 11:39 Intake & Output 03/07/18 03/08/18 03/09/18 06:59 06:59 06:59 Intake Total 1784 1800 420 Balance 1784 1800 420 Weight 87.1 kg 89.1 kg General appearance: PRESENT: no acute distress Eye exam: PRESENT: PERRLA Respiratory exam: PRESENT: clear to auscultation [place] Cardiovascular exam: PRESENT: +S1, +S2 GI/Abdominal exam: PRESENT: soft Neurological exam: PRESENT: alert Results Laboratory Results: 03/04/18 04:51 03/04/18 04:51 Impressions: Chest X-Ray 03/01/18 00:00 IMPRESSION: STABLE CARDIOMEGALY. NO ACUTE FINDINGS. Percutaneous Drainage 03/03/18 00:00 IMPRESSION: CT GUIDED RIGHT LOWER QUADRANT ABSCESS DRAINAGE. GRAM STAIN AND CULTURES PENDING. NO IMMEDIATE COMPLICATIONS. Abdomen/Pelvis CT 03/03/18 08:00 IMPRESSION: Right lower quadrant abscess, better visualized on the current study due to oral contrast. Percutaneous drainage planned for later today Assessment & Plan - Diagnosis (1) Sepsis Qualifiers: Sepsis type: sepsis due to unspecified organism Qualified Code(s): A41.9 - Sepsis, unspecified organism Is this a current diagnosis for this admission?: Yes (2) Bacterial infection due to Bacteroides fragilis Is this a current diagnosis for this admission?: Yes (3) Toxic metabolic encephalopathy Is this a current diagnosis for this admission?: Yes (4) Type 2 diabetes mellitus Qualifiers: Diabetes mellitus vermin exterminator insulin use: with jail use Diabetes mellitus complication status: with neurologic complications Diabetes mellitus complication detail: with polyneuropathy Qualified Code(s): E11.42 - Type 2 diabetes mellitus with diabetic polyneuropathy; Z79.4 - 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 control 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
--- NOTE | 2018-03-08 20:18 | RADIOLOGY REPORT (SQ) ---
EXAM DESCRIPTION: CT ABDOMEN PELVIS WITHOUT IV CONTRAST COMPLETED DATE/TME: 03/08/2018 00:00 CLINICAL HISTORY: 72 years, Female, f/u abd abscess Compared to CT abdomen dated 03/03/2018. This exam was performed according to our departmental dose-optimization program which includes automated exposure control, adjustment of the mA and/or kVp according to patient size and/or use of iterative reconstruction technique where applicable. FINDINGS: Visualized lung bases demonstrate mild right pleural effusion. Liver, spleen, pancreas, adrenal glands appear intact. No hydronephrosis or biliary dilatation. Multiple bilateral nonobstructive renal calculi. Left renal 5.8 cm cyst. No dilated loops of bowel to suggest obstruction. Mild inflammation in the right lower quadrant. Right lower quadrant drainage catheter is in place in the previously seen right lower quadrant fluid collection. It appears appropriately placed. Previously noted fluid collection has essentially resolved. No new fluid collections. The bladder is unremarkable. No abdominal or pelvic lymphadenopathy. Abdominal aorta is mildly calcified without aneurysm. IMPRESSION: Significant improvement in right lower quadrant fluid collection with drainage catheter in place. No new fluid collections.
[2018-03-08] MEDS: METOPROLOL SUCCINATE 50 MG TAB.SR.24H PO SCH (21:32)
[2018-03-09] MEDS: METOPROLOL SUCCINATE 50 MG TAB.SR.24H PO SCH ×2 (03:51→21:26)
[2018-03-09] MEDS: AMLODIPINE BESYLATE 5 MG TABLET PO SCH ×3 (03:54→21:26)
[2018-03-09] MEDS: LANSOPRAZOLE 30 MG TAB.RAP.DR PO SCH (05:59)
[2018-03-09] MEDS: METFORMIN HCL 500 MG TABLET PO SCH ×2 (09:25→16:40)
[2018-03-09] MEDS: HUM INSULIN NPH/REG INSULIN HM 100 UNIT/1 ML 3 ML SUBCUT SCH (09:25)
[2018-03-09] MEDS: POLYETHYLENE GLYCOL 3350 POWDER 17 GM/1 PACKET PO SCH (09:33)
[2018-03-09] MEDS: LOSARTAN POTASSIUM 50 MG TABLET PO SCH (09:33)
[2018-03-09] MEDS: LORATADINE 10 MG TABLET PO SCH (09:33)
--- NOTE | 2018-03-09 10:26 | PDOC PROGRESS REPORT ---
Subjective Progress Note for:: 03/09/18 Reason For Visit: SEPTICEMIA DUE TO BACTEROIDES FRAGILIS, MET COLON abdominal abscess Physical Exam Vital Signs: Temp Pulse Resp BP Pulse Ox 99.3 F 101 H 18 160/75 H 99 03/09/18 07:22 03/09/18 07:22 03/09/18 07:22 03/09/18 07:22 03/09/18 07:22 Intake & Output 03/08/18 03/09/18 03/10/18 06:59 06:59 06:59 Intake Total 1800 538 Output Total 20 Balance 1800 518 Weight 89.1 kg 88.5 kg GI/Abdominal exam: PRESENT: soft - abd soft, non tender + bs Results Laboratory Results: 03/04/18 04:51 03/04/18 04:51 Impressions: Chest X-Ray 03/01/18 00:00 IMPRESSION: STABLE CARDIOMEGALY. NO ACUTE FINDINGS. Percutaneous Drainage 03/03/18 00:00 IMPRESSION: CT GUIDED RIGHT LOWER QUADRANT ABSCESS DRAINAGE. GRAM STAIN AND CULTURES PENDING. NO IMMEDIATE COMPLICATIONS. Abdomen/Pelvis CT 03/08/18 00:00 IMPRESSION: Significant improvement in right lower quadrant fluid collection with drainage catheter in place. No new fluid collections. Assessment & Plan - Diagnosis (2) Intra-abdominal abscess post-procedure Is this a current diagnosis for this admission?: Yes - Plan Summary Plan Summary: repeat ct reviewd no further fluid collection abd abscess resolved will dc drain please reconsult surgery as necessary.
--- NOTE | 2018-03-09 16:32 | PDOC PROGRESS REPORT ---
Subjective Progress Note for:: 03/09/18 Subjective:: There is no new complaints Reason For Visit: SEPTICEMIA DUE TO BACTEROIDES FRAGILIS, MET COLON Physical Exam Vital Signs: Temp Pulse Resp BP Pulse Ox 99.9 F 102 H 20 152/74 H 97 03/09/18 11:03 03/09/18 11:03 03/09/18 11:03 03/09/18 11:03 03/09/18 11:03 Intake & Output 03/08/18 03/09/18 03/10/18 06:59 06:59 06:59 Intake Total 1800 538 Output Total 20 Balance 1800 518 Weight 89.1 kg 88.5 kg General appearance: PRESENT: no acute distress Eye exam: PRESENT: PERRLA Respiratory exam: PRESENT: clear to auscultation [place] Cardiovascular exam: PRESENT: +S1, +S2 GI/Abdominal exam: PRESENT: soft Results Laboratory Results: 03/04/18 04:51 03/04/18 04:51 Impressions: Chest X-Ray 03/01/18 00:00 IMPRESSION: STABLE CARDIOMEGALY. NO ACUTE FINDINGS. Percutaneous Drainage 03/03/18 00:00 IMPRESSION: CT GUIDED RIGHT LOWER QUADRANT ABSCESS DRAINAGE. GRAM STAIN AND CULTURES PENDING. NO IMMEDIATE COMPLICATIONS. Abdomen/Pelvis CT 03/08/18 00:00 IMPRESSION: Significant improvement in right lower quadrant fluid collection with drainage catheter in place. No new fluid collections. Assessment & Plan - Diagnosis (1) Sepsis Qualifiers: Sepsis type: sepsis due to unspecified organism Qualified Code(s): A41.9 - Sepsis, unspecified organism Is this a current diagnosis for this admission?: Yes (2) Bacterial infection due to Bacteroides fragilis Is this a current diagnosis for this admission?: Yes (3) Toxic metabolic encephalopathy Is this a current diagnosis for this admission?: Yes (4) Type 2 diabetes mellitus Qualifiers: Diabetes mellitus terminal carman insulin use: with terminal carman use Diabetes jenna litus complication status: with neurologic complications Diabetes mellitus complication detail: with polyneuropathy Qualified Code(s): E11.42 - Type 2 diabetes mellitus with diabetic polyneuropathy; Z79.4 - alf (current) use of insulin Is this a current diagnosis for this admission?: Yes (5) UTI (urinary tract infection) Qualifiers: Urinary tract infection type: site unspecified Hematuria presence: with hematuria Qualified Code(s): N39.0 - Urinary tract infection, site not specified; R31.9 - Hematuria, unspecified; R31.9 - Hematuria, unspecified Is this a current diagnosis for this admission?: Yes (6) Uncontrolled diabetes mellitus with hyperglycemia, with long-term current use of insulin Is this a current diagnosis for this admission?: Yes
[2018-03-10] MEDS: LANSOPRAZOLE 30 MG TAB.RAP.DR PO SCH ×2 (05:46→06:40)
--- NOTE | 2018-03-10 06:49 | PDOC PROGRESS REPORT ---
Subjective Progress Note for:: 03/10/18 Subjective:: Patient denied any chest pain, difficulty with breathing, fever or chills. No nausea or vomiting. PO intake remain poor. Reason For Visit: SEPTICEMIA DUE TO BACTEROIDES FRAGILIS, MET COLON Physical Exam Vital Signs: Temp Pulse Resp BP Pulse Ox 98.1 F 101 H 15 153/78 H 99 03/10/18 03:37 03/10/18 03:37 03/10/18 03:37 03/10/18 03:37 03/10/18 03:37 Intake & Output 03/08/18 03/09/18 03/10/18 06:59 06:59 06:59 Intake Total 1800 538 437 Output Total 20 Balance 1800 518 437 Weight 89.1 kg 88.5 kg 87.8 kg Physical Exam: General appearance: PRESENT: no acute distress Head exam: PRESENT: atraumatic, normocephalic Eye exam: PRESENT: conjunctiva pink, EOMI, PERRLA. ABSENT: pallor, scleral icterus Ear exam: PRESENT: normal external ear exam Mouth exam: PRESENT: moist Teeth exam: PRESENT: poor dentition Respiratory exam: PRESENT: clear to auscultation [place], decreased breath sounds - at lung bases Cardiovascular exam: PRESENT: RRR. ABSENT: diastolic murmur, rubs, systolic murmur GI/Abdominal exam: PRESENT: normal bowel sounds, soft, tenderness to palpation over RLQ region. ABSENT: distended, guarding, mass, organomegaly, rebound Extremities exam: ABSENT: pedal edema Musculoskeletal exam: PRESENT: deformity - related to multiple joints involvement with arthritis Neurological exam: PRESENT: alert, awake, oriented to person, oriented to place, oriented to time, oriented to situation, CN II-XII grossly intact. ABSENT: motor sensory deficit Psychiatric exam: PRESENT: appropriate affect, normal mood. ABSENT: homicidal ideation, suicidal ideation Skin exam: PRESENT: dry, warm Results Laboratory Results: 03/04/18 04:51 03/04/18 04:51 Impressions: Chest X-Ray 03/01/18 00:00 IMPRESSION: STABLE CARDIOMEGALY. NO ACUTE FINDINGS. Percutaneous Drainage 03/03/18 00:00 IMPRESSION: CT GUIDED RIGHT LOWER QUADRANT ABSCESS DRAINAGE. GRAM STAIN AND CULTURES PENDING. NO IMMEDIATE COMPLICATIONS. Abdomen/Pelvis CT 03/08/18 00:00 IMPRESSION: Significant improvement in right lower quadrant fluid collection with drainage catheter in place. No new fluid collections. Assessment & Plan - Diagnosis (1) Bacterial infection due to Bacteroides fragilis Is this a current diagnosis for this admission?: Yes (2) Uncontrolled diabetes mellitus with hyperglycemia, with long-term current use of insulin Is this a current diagnosis for this admission?: Yes (3) HTN (hypertension) Qualifiers: Hypertension type: essential hypertension Qualified Code(s): I10 - Essential (primary) hypertension Is this a current diagnosis for this admission?: Yes (4) HLD (hyperlipidemia) Qualifiers: Hyperlipidemia type: unspecified Qualified Code(s): E78.5 - Hyperlipidemia, unspecified Is this a current diagnosis for this admission?: Yes (5) GERD (gastroesophageal reflux disease) Qualifiers: Esophagitis presence: without esophagitis Qualified Code(s): K21.9 - Gastro-esophageal reflux disease without esophagitis Is this a current diagnosis for this admission?: Yes (6) History of colon cancer, stage IV Is this a current diagnosis for this admission?: Yes (7) Obesity with body mass index (BMI) of 30.0 to 39.9 Is this a current diagnosis for this admission?: Yes (8) Intra-abdominal abscess post-procedure Is this a current diagnosis for this admission?: Yes - Time Time Spent with patient: 25-34 minutes Medications reviewed and adjusted accordingly: Yes Anticipated discharge: SNF Within: Other - Inpatient Certification Based on my medical assessment, after consideration of the patient's comorbidit ies, presenting symptoms, or acuity I expect that the services needed warrant INPATIENT care.: Yes I certify that my determination is in accordance with my understanding of [employer]'s requirements for reasonable and necessary INPATIENT services [42 CFR 412.3e].: Yes Medical Necessity: Need Close Monitoring Due to Risk of Patient Decompensation, Need For IV Fluids, Need For Continuous Telemetry Monitoring, Risk of Complication if Not Cared For in Hospital Post Hospital Care: D/C or Transfer Summary - Plan Summary Plan Summary: Continue current medication management. Follow up on SNF transfer for short term rehabilitation.
[2018-03-10 07:38] LABS: ABSOLUTE LYMPHOCYTES (AUTO) 1.5 10^3/uL (0.5-4.7); ABSOLUTE MONOCYTES (AUTO) 1.2 10^3/uL (0.1-1.4); ABSOLUTE NEUT (AUTO) 9.6 10^3/uL (1.7-8.2); BASOPHILS % (AUTO) 0.4 % (0-2); EOSINOPHILS % (AUTO) 0.4 % (0-6); HEMATOCRIT 26.9 % (36.0-47.0); HEMOGLOBIN 8.8 g/dL (12.0-15.5); MEAN CORPUSCULAR HEMOGLOBIN 29.8 pg (27.0-33.4); MEAN CORPUSCULAR HGB CONC 32.9 g/dL (32.0-36.0); MEAN CORPUSCULAR VOLUME 90 fl (80-97); MONOCYTES % (AUTO) 9.7 % (3-13); PLATELET COUNT 156 10^3/uL (150-450); RED BLOOD COUNT 2.97 10^6/uL (3.72-5.28); RED CELL DISTRIBUTION WIDTH 18.5 % (11.5-14.0); SEGMENTED NEUTROPHILS % (AUTO) 77.5 % (42-78); TOTAL CELLS COUNTED % (AUTO) 100 %; WHITE BLOOD COUNT 12.4 10^3/uL (4.0-10.5)
[2018-03-10 07:57] LABS: ALANINE AMINOTRANSFERASE 12 U/L (9-52); ALBUMIN 2.8 g/dL (3.5-5.0); ALKALINE PHOSPHATASE 174 U/L (38-126); ANION GAP 6 (5-19); ASPARTATE AMINO TRANSFERASE 53 U/L (14-36); BILIRUBIN,DIRECT 0.5 mg/dL (0.0-0.4); BLOOD UREA NITROGEN 6 mg/dL (7-20); CALCIUM 9.5 mg/dL (8.4-10.2); CARBON DIOXIDE 26 mmol/L (22-30); CHLORIDE 108 mmol/L (98-107); GLUCOSE 158 mg/dL (75-110); POTASSIUM 3.9 mmol/L (3.6-5.0); SODIUM 140.4 mmol/L (137-145); TOTAL PROTEIN 7.4 g/dL (6.3-8.2)
[2018-03-10] MEDS: POLYETHYLENE GLYCOL 3350 POWDER 17 GM/1 PACKET PO SCH (09:53)
[2018-03-10] MEDS: LOSARTAN POTASSIUM 50 MG TABLET PO SCH (09:53)
[2018-03-10] MEDS: AMLODIPINE BESYLATE 5 MG TABLET PO SCH ×2 (09:53→22:21)
[2018-03-10] MEDS: METFORMIN HCL 500 MG TABLET PO SCH ×2 (09:53→15:04)
[2018-03-10] MEDS: HUM INSULIN NPH/REG INSULIN HM 100 UNIT/1 ML 3 ML SUBCUT SCH (09:53)
[2018-03-10] MEDS: LORATADINE 10 MG TABLET PO SCH (09:53)
[2018-03-10] MEDS: AMOXICILLIN TR/POT CLAVULANATE 500-125 MG TAB PO SCH ×2 (15:04→22:21)
[2018-03-10] MEDS: INSULIN LISPRO 100 UNIT/ML 3 ML VIAL SUBCUT PRN (16:40)
[2018-03-10] MEDS: NORMAL SALINE 1000 ML 1,000 ML IV PRN (16:40)
[2018-03-10] MEDS: METOPROLOL SUCCINATE 50 MG TAB.SR.24H PO SCH (22:22)
[2018-03-11] MEDS: NORMAL SALINE 1000 ML 1,000 ML IV PRN ×2 (04:30→20:07)
[2018-03-11] MEDS: AMOXICILLIN TR/POT CLAVULANATE 500-125 MG TAB PO SCH ×3 (06:48→21:34)
[2018-03-11] MEDS: LANSOPRAZOLE 30 MG TAB.RAP.DR PO SCH (06:48)
--- NOTE | 2018-03-11 08:21 | PDOC PROGRESS REPORT ---
Subjective Progress Note for:: 03/11/18 Subjective:: Patient denied any chest pain, difficulty with breathing, fever or chills. No nausea or vomiting. PO intake remain poor. There is persistent hyperglycemia and managed with sliding scale Humalog insulin due to her poor intake. Reason For Visit: SEPTICEMIA DUE TO BACTEROIDES FRAGILIS, MET COLON Physical Exam Vital Signs: Temp Pulse Resp BP Pulse Ox 99.9 F 108 H 19 152/70 H 97 03/11/18 08:00 03/11/18 08:00 03/11/18 08:00 03/11/18 08:00 03/11/18 08:00 Intake & Output 03/10/18 03/11/18 03/12/18 06:59 06:59 06:59 Intake Total 437 1659 Balance 437 1659 Weight 87.8 kg 89.2 kg Physical Exam: General appearance: PRESENT: no acute distress Head exam: PRESENT: atraumatic, normocephalic Eye exam: PRESENT: conjunctiva pink, EOMI, PERRLA. ABSENT: pallor, scleral icterus Ear exam: PRESENT: normal external ear exam Mouth exam: PRESENT: moist Teeth exam: PRESENT: poor dentition Respiratory exam: PRESENT: clear to auscultation [place], decreased breath sounds - at lung bases Cardiovascular exam: PRESENT: RRR. ABSENT: diastolic murmur, rubs, systolic murmur GI/Abdominal exam: PRESENT: normal bowel sounds, soft, minimal tenderness to palpation over RLQ region to palpation. Drain site dressing okay ABSENT: dist ended, guarding, mass, organomegaly, rebound Extremities exam: ABSENT: pedal edema Musculoskeletal exam: PRESENT: deformity - related to multiple joints involvement with arthritis Neurological exam: PRESENT: alert, awake, oriented to person, oriented to place, oriented to time, oriented to situation, CN II-XII grossly intact. ABSENT: motor sensory deficit Psychiatric exam: PRESENT: appropriate affect, normal mood. ABSENT: homicidal ideation, suicidal ideation Skin exam: PRESENT: dry, warm Results Laboratory Results: 03/10/18 07:10 03/10/18 07:10 Impressions: Chest X-Ray 03/01/18 00:00 IMPRESSION: STABLE CARDIOMEGALY. NO ACUTE FINDINGS. Percutaneous Drainage 03/03/18 00:00 IMPRESSION: CT GUIDED RIGHT LOWER QUADRANT ABSCESS DRAINAGE. GRAM STAIN AND CULTURES PENDING. NO IMMEDIATE COMPLICATIONS. Abdomen/Pelvis CT 03/08/18 00:00 IMPRESSION: Significant improvement in right lower quadrant fluid collection with drainage catheter in place. No new fluid collections. Assessment & Plan - Diagnosis (1) Bacterial infection due to Bacteroides fragilis Is this a current diagnosis for this admission?: Yes (2) Uncontrolled diabetes mellitus with hyperglycemia, with long-term current use of insulin Is this a current diagnosis for this admission?: Yes (3) HTN (hypertension) Qualifiers: Hypertension type: essential hypertension Qualified Code(s): I10 - Essential (primary) hypertension Is this a current diagnosis for this admission?: Yes (4) HLD (hyperlipidemia) Qualifiers: Hyperlipidemia type: unspecified Qualified Code(s): E78.5 - Hyperlipidemia, unspecified Is this a current diagnosis for this admission?: Yes (5) GERD (gastroesophageal reflux disease) Qualifiers: Esophagitis presence: without esophagitis Qualified Code(s): K21.9 - Gastro-esophageal reflux disease without esophagitis Is this a current diagnosis for this admission?: Yes (6) History of colon cancer, stage IV Is this a current diagnosis for this admission?: Yes (7) Obesity with body mass index (BMI) of 30.0 to 39.9 Is this a current diagnosis for this admission?: Yes (8) Intra-abdominal abscess post-procedure Is this a current diagnosis for this admission?: Yes - Time Time Spent with patient: 25-34 minutes Medications reviewed and adjusted accordingly: Yes Anticipated discharge: SNF Within: Other - Inpatient Certification Based on my medical assessment, after consideration of the patient's comorbidities, presenting symptoms, or acuity I expect that the services needed warrant INPATIENT care.: Yes I certify that my determination is in accordance with my understanding of Medicare's requirements for reasonable and necessary INPATIENT services [42 CFR 412.3e].: Yes Medical Necessity: Need Close Monitoring Due to Risk of Patient Decompensation, Need For IV Fluids, Need For Continuous Telemetry Monitoring, Risk of Co mplication if Not Cared For in Hospital Post Hospital Care: D/C or Transfer Summary - Plan Summary Plan Summary: Continue current medication management. Obtain CBC in am. Follow up with cyber intel planner regarding [facility] since 03/06/2018.
[2018-03-11] MEDS: HUM INSULIN NPH/REG INSULIN HM 100 UNIT/1 ML 3 ML SUBCUT SCH (08:56)
[2018-03-11] MEDS: ACETAMINOPHEN 325 MG TABLET PO PRN (09:00)
[2018-03-11] MEDS: METFORMIN HCL 500 MG TABLET PO SCH ×2 (09:00→16:00)
[2018-03-11] MEDS: LOSARTAN POTASSIUM 50 MG TABLET PO SCH (09:00)
[2018-03-11] MEDS: POLYETHYLENE GLYCOL 3350 POWDER 17 GM/1 PACKET PO SCH (09:01)
[2018-03-11] MEDS: AMLODIPINE BESYLATE 5 MG TABLET PO SCH ×2 (09:01→21:47)
[2018-03-11] MEDS: LORATADINE 10 MG TABLET PO SCH (09:01)
[2018-03-11 09:20] LABS: ABSOLUTE LYMPHOCYTES (AUTO) 1.3 10^3/uL (0.5-4.7); ABSOLUTE MONOCYTES (AUTO) 1.2 10^3/uL (0.1-1.4); BASOPHILS % (AUTO) 0.2 % (0-2); EOSINOPHILS % (AUTO) 0.1 % (0-6); HEMOGLOBIN 8.9 g/dL (12.0-15.5); LYMPHOCYTES % (AUTO) 9.3 % (13-45); MEAN CORPUSCULAR HEMOGLOBIN 29.8 pg (27.0-33.4); MEAN CORPUSCULAR VOLUME 90 fl (80-97); MONOCYTES % (AUTO) 8.6 % (3-13); PLATELET COUNT 139 10^3/uL (150-450); RED BLOOD COUNT 2.99 10^6/uL (3.72-5.28); RED CELL DISTRIBUTION WIDTH 18.1 % (11.5-14.0); SEGMENTED NEUTROPHILS % (AUTO) 81.8 % (42-78); TOTAL CELLS COUNTED % (AUTO) 100 %; WHITE BLOOD COUNT 13.5 10^3/uL (4.0-10.5)
[2018-03-11] MEDS: INSULIN LISPRO 100 UNIT/ML 3 ML VIAL SUBCUT SCH ×3 (14:30→21:45)
[2018-03-11] MEDS: METOPROLOL SUCCINATE 50 MG TAB.SR.24H PO SCH (21:47)
[2018-03-12] MEDS: AMOXICILLIN TR/POT CLAVULANATE 500-125 MG TAB PO SCH ×3 (05:33→21:30)
[2018-03-12] MEDS: LANSOPRAZOLE 30 MG TAB.RAP.DR PO SCH (05:34)
--- NOTE | 2018-03-12 07:58 | PDOC PROGRESS REPORT ---
Subjective Progress Note for:: 03/12/18 Subjective:: Patient denied any chest pain, difficulty with breathing, fever or chills. No nausea or vomiting. PO intake remain poor. Reason For Visit: SEPTICEMIA DUE TO BACTEROIDES FRAGILIS, MET COLON Physical Exam Vital Signs: Temp Pulse Resp BP Pulse Ox 97.8 F 100 18 155/72 H 97 03/12/18 04:12 03/12/18 07:00 03/12/18 04:12 03/12/18 04:12 03/12/18 04:12 Intake & Output 03/11/18 03/12/18 03/13/18 06:59 06:59 06:59 Intake Total 1659 2200 Balance 1659 2200 Weight 89.2 kg 89.8 kg Physical Exam: General appearance: PRESENT: no acute distress Head exam: PRESENT: atraumatic, normocephalic Eye exam: PRESENT: conjunctiva pink, EOMI, PERRLA. ABSENT: pallor, scleral icterus Respiratory exam: PRESENT: clear to auscultation [place], decreased breath sounds - at lung bases Cardiovascular exam: PRESENT: RRR. ABSENT: diastolic murmur, rubs, systolic murmur GI/Abdominal exam: PRESENT: normal bowel sounds, soft. ABSENT: distended, guarding, mass, organomegaly, rebound Extremities exam: ABSENT: pedal edema Neurological exam: PRESENT: alert, awake, oriented to person, oriented to place, oriented to time, oriented to situation, CN II-XII grossly intact. ABSENT: motor sensory deficit Psychiatric exam: PRESENT: appropriate affect, normal mood. ABSENT: homicidal ideation, suicidal ideation Skin exam: PRESENT: dry, warm Results Laboratory Results: 03/11/18 09:04 03/10/18 07:10 03/11/18 09:04 WBC 13.5 H RBC 2.99 L Hgb 8.9 L Hct 27.0 L MCV 90 MCH 29.8 MCHC 33.0 RDW 18.1 H Plt Count 139 L Seg Neutrophils % 81.8 H Lymphocytes % 9.3 L Monocytes % 8.6 Eosinophils % 0.1 Basophils % 0.2 Absolute Neutrophils 11.0 H Absolute Lymphocytes 1.3 Absolute Monocytes 1.2 Absolute Eosinophils 0.0 Absolute Basophils 0.0 Impressions: Chest X-Ray 03/01/18 00:00 IMPRESSION: STABLE CARDIOMEGALY. NO ACUTE FINDINGS. Percutaneous Drainage 03/03/18 00:00 IMPRESSION: CT GUIDED RIGHT LOWER QUADRANT ABSCESS DRAINAGE. GRAM STAIN AND CULTURES PENDING. NO IMMEDIATE COMPLICATIONS. Abdomen/Pelvis CT 03/08/18 00:00 IMPRESSION: Significant improvement in right lower quadrant fluid collection with drainage catheter in place. No new fluid collections. Assessment & Plan - Diagnosis (1) Bacterial infection due to Bacteroides fragilis Is this a current diagnosis for this admission?: Yes (2) Uncontrolled diabetes mellitus with hyperglycemia, with long-term current use of insulin Is this a current diagnosis for this admission?: Yes (3) HTN (hypertension) Qualifiers: Hypertension type: essential hypertension Qualified Code(s): I10 - Essential (primary) hypertension Is this a current diagnosis for this admission?: Yes (4) HLD (hyperlipidemia) Qualifiers: Hyperlipidemia type: unspecified Qualified Code(s): E78.5 - Hyperlipidemia, unspecified Is this a current diagnosis for this admission?: Yes (5) GERD (gastroesophageal reflux disease) Qualifiers: Esophagitis presence: without esophagitis Qualified Code(s): K21.9 - Gastro-esophageal reflux disease without esophagitis Is this a current diagnosis for this admission?: Yes (6) History of colon cancer, stage IV Is this a current diagnosis for this admission?: Yes (7) Obesity with body mass index (BMI) of 30.0 to 39.9 Is this a current diagnosis for this admission?: Yes (8) Intra-abdominal abscess post-procedure Is this a current diagnosis for this admission?: Yes - Time Time Spent with patient: 25-34 minutes Medications reviewed and adjusted accordingly: Yes Anticipated discharge: SNF Within: Other - Inpatient Certification Based on my medical assessment, after consideration of the patient's comorbidities, presenting symptoms, or acuity I expect that the services needed warrant INPATIENT care.: Yes I certify that my determination is in accordance with my understanding of Medicare's requirements for reasonable and necessary INPATIENT services [42 CFR 412.3e].: Yes Medical Necessity: Need Close Monitoring Due to Risk of Patient Decompensation, Need For IV Fluids, Need For Continuous Telemetry Monitoring, Risk of Complication if Not Cared For in Hospital Post Hospital Care: D/C or Transfer Summary - Plan Summary Plan Summary: Continue current mediation management.Awaiting SNF placement for short term rehabilitation.
[2018-03-12] MEDS ORDERED: NORMAL SALINE 1000 ML 1,000 ML IV PRN (07:59)
[2018-03-12] MEDS: POLYETHYLENE GLYCOL 3350 POWDER 17 GM/1 PACKET PO SCH (10:46)
[2018-03-12] MEDS: METFORMIN HCL 500 MG TABLET PO SCH ×2 (10:50→17:35)
[2018-03-12] MEDS: LORATADINE 10 MG TABLET PO SCH (10:50)
[2018-03-12] MEDS: LOSARTAN POTASSIUM 50 MG TABLET PO SCH (10:51)
[2018-03-12] MEDS: HUM INSULIN NPH/REG INSULIN HM 100 UNIT/1 ML 3 ML SUBCUT SCH (10:51)
[2018-03-12] MEDS: AMLODIPINE BESYLATE 5 MG TABLET PO SCH ×2 (10:51→21:30)
[2018-03-12] MEDS: INSULIN LISPRO 100 UNIT/ML 3 ML VIAL SUBCUT SCH ×4 (10:52→21:30)
[2018-03-12] MEDS: ACETAMINOPHEN 325 MG TABLET PO PRN (11:51)
[2018-03-12] MEDS: METOPROLOL SUCCINATE 50 MG TAB.SR.24H PO SCH (21:30)
[2018-03-13] MEDS: LANSOPRAZOLE 30 MG TAB.RAP.DR PO SCH (05:19)
[2018-03-13] MEDS: AMOXICILLIN TR/POT CLAVULANATE 500-125 MG TAB PO SCH ×2 (05:19→14:12)
--- NOTE | 2018-03-13 07:38 | PDOC TRANSFER SUMMARY ---
General - Admit/Disc Date/PCP Admission Date/Primary Care Provider: 02/28/18 13:29 DAVID NORTON Discharge Date: 03/13/18 - Discharge Diagnosis (1) Bacterial infection due to Bacteroides fragilis Is this a current diagnosis for this admission?: Yes (2) Uncontrolled diabetes mellitus with hyperglycemia, with long-term current use of insulin Is this a current diagnosis for this admission?: Yes (3) HTN (hypertension) Is this a current diagnosis for this admission?: Yes (4) HLD (hyperlipidemia) Is this a current diagnosis for this admission?: Yes (5) GERD (gastroesophageal reflux disease) Is this a current diagnosis for this admission?: Yes (6) History of colon cancer, stage IV Is this a current diagnosis for this admission?: Yes (7) Obesity with body mass index (BMI) of 30.0 to 39.9 Is this a current diagnosis for this admission?: Yes (8) Intra-abdominal abscess post-procedure Is this a current diagnosis for this admission?: Yes - Additional Information Resuscitation Status: Full Code Discharge Diet: Cardiac, Diabetic Discharge Activity: Activity As Tolerated, Slowly Increase Activity, Supervised Activity Prescriptions: Amox Tr/Potassium Clavulanate [Augmentin "500" Tablet] 1 tab PO Q8 #14 tablet Home Medications: Metoprolol Succinate [Toprol Xl 50 mg Tab.sr] 50 mg PO QHS 11/05/17 Omeprazole 20 mg PO DAILY 11/05/17 Polyethylene Glycol 3350 [Miralax Powder 17 gm/Packet] 17 gm PO DAILY 11/05/17 Loratadine [Claritin] 10 mg PO DAILY 02/03/18 Amlodipine Besylate [Norvasc 5 mg Tablet] 5 mg PO Q12 #60 tablet 02/21/18 Losartan/Hydrochlorothiazide [Losartan-Hctz 100-25 mg Tab] 1 each PO DAILY #30 tablet 02/21/18 Hum Insulin NPH/Reg Insulin Hm [Novolin 70-30 100 Unit/ml Vial] 50 units SQ [id number] 02/28/18 Insulin Aspart Prot/Insuln Asp [Novolog Mix 70-30 Flexpen Syrn] 50 unit SQ WSUPPER 02/28/18 Metformin HCl [Glucophage 500 mg Tablet] 500 mg PO BIDACBS 02/28/18 Amox Tr/Potassium Clavulanate [Augmentin "500" Tablet] 1 tab PO Q8 #14 tablet 03/12/18 History of Present Illness Admission Date/PCP: 02/28/18 13:29 DAVIDRICHARD NORTON History of Present Illness: TRELL ISLAS is a 72 year old female who was recently discharged from this hospital after admission for GI bleed that led to right hemicolectomy of ascending colon metastatic cancer with end-to-end anastomosis. She developed Bacteroides Fragilis septicemia thereafter which was adequately treated with IV Zosyn and subsequently discharged home on oral Metronidazole therapy. Unfortu nately the patient did not fill this prescription. Upon her post acute care office follow up I spoke with her visiting nurse staff from [facility] who confirmed her noncompliant with treatment. Attempt was made to restart her on oral Flagyl with new electronic prescription sent to her pharmacy on 02/26/18 but remain unfilled.She was brought to my office today by her daughter with claim of recurrent episodes dizziness and difficulty with ambulation and self care at home. Patient appeared acutely ill despite her chronic debility. Daughter reported that patient cannot support self while standing, nausea, headache and increase confusion. Her initial evaluation revealed demonstrable elevated blood pressure with tachycardia and leukocytosis. She was advised hospitalization for further evaluation and treatment. Her morbidities include hypertension, diabetes mellitus type 2, Hyperlipidemia, GastroEsophageal Reflux Disease, metastatic colon cancer s/p right hemicolectomy with end-to-end anas tomosis, and depression. Hospital Course Hospital Course: Patient was admitted on 02/28/18 due to worsening leukocytosis and generalized health condition. She was not compliant with use of prior immediate discharged antibiotic therapy. Her further evaluation with abdominal/pelvic CT scan revealed right sided intra-abdominal fluid collection necessitating CT guided drainage on 03/03/18. Culture of the aspirate revealed E. coli. She was adequately covered with IV Zosyn since admission with associated improvement in her leukocytosis. She was transiently off antibiotic coverage follow normalization of the WBC with repeat CT scan of the abdomen and pelvis showing improvement in the right sided intra-abdominal fluid collection. In view of her persistent RLQ tenderness to palpation she was restarted on oral Augmentin based on culture and sensitivity findings. Her WBC showed some upward trend but she remain afebrile. Her oral intake have been poor with need to hold her diabetic medication and maintain her on Humalog insulin sliding scale coverage. She will be discharged to [facility] today for short term rehabilitation and maintain on oral Augment for seven more days. She will follow up with me in the office [facility]. Physical Exam Vital Signs: Temp Pulse Resp BP Pulse Ox 98.8 F 92 20 154/70 H 98 03/13/18 03:44 03/13/18 03:44 03/13/18 03:44 03/13/18 03:44 03/13/18 03:44 Intake & Output 03/12/18 03/13/18 03/14/18 06:59 06:59 06:59 Intake Total 3200 260 Balance 3200 260 Weight 89.8 kg 78.4 kg General appearance: PRESENT: no acute distress Head exam: PRESENT: atraumatic, normocephalic Eye exam: PRESENT: conjunctiva pink, EOMI, PERRLA. ABSENT: pallor, scleral icterus Ear exam: PRESENT: normal external ear exam Mouth exam: PRESENT: moist Teeth exam: PRESENT: poor dentition Respiratory exam: PRESENT: clear to auscultation [place], decreased breath sounds - at lung bases Cardiovascular exam: PRESENT: RRR. ABSENT: diastolic murmur, rubs, systolic murmur GI/Abdominal exam: PRESENT: normal bowel sounds, soft, Drain site dressing okay ABSENT: distended, guarding, mass, organomegaly, rebound Extremities exam: ABSENT: pedal edema Musculoskeletal exam: PRESENT: deformity - related to multiple joints in volvement with arthritis Neurological exam: PRESENT: alert, awake, oriented to person, oriented to place, oriented to time, oriented to situation, CN II-XII grossly intact. ABSENT: motor sensory deficit Psychiatric exam: PRESENT: appropriate affect, normal mood. ABSENT: homicidal ideation, suicidal ideation Skin exam: PRESENT: dry, warm Results Laboratory Results: 03/11/18 09:04 03/10/18 07:10 Impressions: Chest X-Ray 03/01/18 00:00 IMPRESSION: STABLE CARDIOMEGALY. NO ACUTE FINDINGS. Percutaneous Drainage 03/03/18 00:00 IMPRESSION: CT GUIDED RIGHT LOWER QUADRANT ABSCESS DRAINAGE. GRAM STAIN AND CULTURES PENDING. NO IMMEDIATE COMPLICATIONS. Abdomen/Pelvis CT 03/08/18 00:00 IMPRESSION: Significant improvement in right lower quadrant fluid collection with drainage catheter in place. No new fluid collections. Transfer Plan - Disposition Transfer Plan: Transfer to [facility] for short term rehabilitation. Qualifiers - * PATIENT BEING DISCHARGED WITH ANY OF THE FOLLOWING DIAGNOSIS: No Plan Discharge Plan: Transfer to [facility] for short term rehabilitation. Follow up in tne office upon discharge from the SNF. Patient may benefit from home health services upon discharge from the prison facility.
[2018-03-13] MEDS: INSULIN LISPRO 100 UNIT/ML 3 ML VIAL SUBCUT SCH ×2 (08:50→13:52)
[2018-03-13] MEDS: HUM INSULIN NPH/REG INSULIN HM 100 UNIT/1 ML 3 ML SUBCUT SCH (08:50)
[2018-03-13] MEDS: POLYETHYLENE GLYCOL 3350 POWDER 17 GM/1 PACKET PO SCH (10:05)
[2018-03-13] MEDS: METFORMIN HCL 500 MG TABLET PO SCH (10:08)
[2018-03-13] MEDS: LOSARTAN POTASSIUM 50 MG TABLET PO SCH (10:08)
[2018-03-13] MEDS: LORATADINE 10 MG TABLET PO SCH (10:08)
[2018-03-13] MEDS: AMLODIPINE BESYLATE 5 MG TABLET PO SCH (10:08)
[2018-03-13 12:53] VITALS: BP 159/73
== END 2018-03-13 14:54 | DRG 862 ==
LOC: 4N 13:29
PROVIDERS: ADMIT Internal Medicine Geriatric Medicine; ATTEND Internal Medicine Geriatric Medicine
PROC: 0W9G30Z Drainage of Peritoneal Cavity with Drainage Device, Percutaneous Approach (ICD-10-PCS; principal; 2018-03-03)
DX: T81.43XA Infection following a procedure, organ and space surgical site, initial encounter (principal); K65.1 Peritoneal abscess; G92 Toxic encephalopathy; C18.2 Malignant neoplasm of ascending colon; C78.7 Secondary malignant neoplasm of liver and intrahepatic bile duct; D62 Acute posthemorrhagic anemia; N39.0 Urinary tract infection, site not specified; B96.6 Bacteroides fragilis [B. fragilis] as the cause of diseases classified elsewhere; B96.20 Unspecified Escherichia coli [E. coli] as the cause of diseases classified elsewhere; R62.7 Adult failure to thrive; E11.65 Type 2 diabetes mellitus with hyperglycemia; E11.42 Type 2 diabetes mellitus with diabetic polyneuropathy; I10 Essential (primary) hypertension; E78.5 Hyperlipidemia, unspecified; K21.9 Gastro-esophageal reflux disease without esophagitis; F32.9 Major depressive disorder, single episode, unspecified; Y83.2 Surgical operation with anastomosis, bypass or graft as the cause of abnormal reaction of the patient, or of later complication, without mention of misadventure at the time of the procedure; Y92.098 Other place in other non-institutional residence as the place of occurrence of the external cause; Z68.28 Body mass index [BMI] 28.0-28.9, adult; Z90.49 Acquired absence of other specified parts of digestive tract; Z79.84 Long term (current) use of oral hypoglycemic drugs; Z79.4 Long term (current) use of insulin; Z79.899 Other long term (current) drug therapy; Z91.14 Patient's other noncompliance with medication regimen
CPT/HCPCS: 36415; 71045; 74176; 74177; 75989; 80048; 80053; 82962; 85025; 85027; 85610; 85730; 87040; 87070; 87075; 87077; 87086; 87186; 87205; C1729; C1769; C1894; J1650; J1815; J2250; J2543; J3010; J3490; J7030

== ENCOUNTER 2018-03-19 22:02 | Inpatient (IN) | payer MEDICARE ==
[2018-03-19] MEDS ORDERED: DEXTROSE 5%-1/2 NORMAL SALINE 1,000 ML IV ONE (22:36)
--- NOTE | 2018-03-19 22:37 | ER Document Report ---
ED General - General Stated Complaint: BLOOD SUGAR PROBLEMS Time Seen by Provider: 03/19/18 22:35 Notes: 72-year-old female to emergency department chief complaint of hypoglycemia. Patient lives in a group home. Followed by Dr. Burgess. Blood sugar began dropping earlier today. She was given multiple doses of glucagon. EMS arrived. Placed her on a dextrose drip. Blood sugar came up but now coming down again. TRAVEL OUTSIDE OF THE [place] IN LAST 30 DAYS: No - HPI Onset: This evening Onset/Duration: Gradual Quality of pain: No pain - Related Data Allergies/Adverse Reactions: pioglitazone [From Actos] Allergy (Verified 02/28/18 18:05) pravastatin Allergy (Verified 02/28/18 18:05) simvastatin Allergy (Verified 02/28/18 17:15) Past Medical History - General Information source: [facility] Records - Social History Smoking Status: Unknown if Ever Smoked Frequency of alcohol use: None Lives with: [facility] Family History: Reviewed & Not Pertinent - Past Medical History Cardiac Medical History: Reports: Hx Hypercholesterolemia, Hx Hypertension Neurological Medical History: Denies: Hx Seizures Endocrine Medical History: Reports: Hx Diabetes Mellitus Type 2 Renal/ Medical History: Denies: Hx Peritoneal Dialysis Malignancy Medical History: Reports: Hx Colorectal Cancer - with liver metastases and currently on chemotherapy. GI Medical History: Reports: Hx Gastroesophageal Reflux Disease, Hx Colonoscopy Musculoskeletal Medical History: Reports Hx Musculoskeletal Deformity, Reports Hx Musculoskeletal Trauma Psychiatric Medical History: Reports: Hx Depression Past Surgical History: Reports: Hx Hysterectomy, Hx Vascular Surgery - Port for chemo, Other - Biopsies of colon - Immunizations Immunizations up to date: Yes Hx Diphtheria, Pertussis, Tetanus Vaccination: Yes Review of Systems - Review of Systems -: Yes ROS unobtainable due to patient's medical condition - Patient is sleepy and hypoglycemic Physical Exam - Vital signs Vitals: Pulse Ox 97 03/19/18 22:08 Interpretation: Normal - General General appearance: Lethargic - HEENT Head: Normocephalic, Atraumatic Eyes: Normal Pupils: PERRL - Respiratory Respiratory status: No respiratory distress Chest status: Nontender Breath sounds: Normal Chest palpation: Normal - Cardiovascular Rhythm: Regular Heart sounds: Normal auscultation Murmur: No - Abdominal Inspection: Normal Distension: No distension Bowel sounds: Normal Tenderness: Nontender Organomegaly: No organomegaly - Back Back: Normal, Nontender - Extremities General upper extremity: Normal inspection, Nontender, Normal color, Normal ROM, Normal temperature General lower extremity: Normal inspection, Nontender, Normal color, Normal ROM, Normal temperature. No: Kaylie's sign - Neurological Cognition: Normal [place] Coma Scale Verbal: Confused Elsa Coma Scale Motor: Obeys Commands Sensory: Normal - Skin Skin Temperature: Warm Skin Moisture: Dry Skin Color: Normal, Other - Does have some stage I decubitus on the buttocks but no open sores or lesions. Course - Re-evaluation Re-evalutation: 03/20/18 04:47 Patient's blood sugar remains low. Amp of D50 given. Dextrose drip started. Consulted with Dr. Burgess. Will admit at this time. - Vital Signs Vital signs: Temp Pulse Resp BP Pulse Ox 98.6 F 25 H 143/75 H 95 03/20/18 03:00 03/20/18 03:01 03/20/18 03:01 03/20/18 03:01 - Laboratory Result Diagrams: 03/20/18 00:15 03/20/18 00:15 Laboratory results interpreted by me: 03/19/18 03/20/18 03/20/18 23:48 00:15 00:15 WBC 12.9 H RBC 3.06 L Hgb 8.9 L Hct 27.5 L RDW 19.5 H Plt Count 77 L Lymphocytes % 12.1 L Absolute Neutrophils 10.0 H Potassium 3.2 L Carbon Dioxide 33 H Total Bilirubin 1.6 H AST 255 H Alkaline Phosphatase 271 H Creatine Kinase 312 H Total Protein 8.6 H Albumin 3.2 L Urine Protein 100 H Urine Blood SMALL H Urine Bilirubin SMALL H Urine Urobilinogen 4.0 H - EKG Interpretation by [place] EKG shows normal: Sinus rhythm, Intervals. abnormal: [place] - Left axis deviation, QRS Complexes - LVH, ST-T Waves - Flattening of the T waves in the anterior lateral leads Discharge - Discharge Clinical Impression: Hypoglycemia Condition: Good Disposition: ADMITTED OBSERVATION Admitting Provider: Aditya Unit Admitted: Telemetry
[2018-03-20 00:19] LABS: APPEARANCE,URINE SLIGHTLY-CLOUDY; BILIRUBIN,URINE SMALL (NEGATIVE); COLOR,URINE AMBER; GLUCOSE, URINE NEGATIVE (NEGATIVE); KETONES,URINE NEGATIVE (NEGATIVE); LEUKOCYTE ESTERASE,URINE NEGATIVE (NEGATIVE); NITRITE,URINE NEGATIVE (NEGATIVE); PROTEIN,URINE 100 mg/dL (NEGATIVE); URINE SPECIFIC GRAVITY 1.021
[2018-03-20 00:38] LABS: ABSOLUTE LYMPHOCYTES (AUTO) 1.6 10^3/uL (0.5-4.7); ABSOLUTE MONOCYTES (AUTO) 1.3 10^3/uL (0.1-1.4); BASOPHILS % (AUTO) 0.4 % (0-2); HEMATOCRIT 27.5 % (36.0-47.0); HEMOGLOBIN 8.9 g/dL (12.0-15.5); LYMPHOCYTES % (AUTO) 12.1 % (13-45); MEAN CORPUSCULAR HEMOGLOBIN 29.1 pg (27.0-33.4); MEAN CORPUSCULAR HGB CONC 32.4 g/dL (32.0-36.0); MEAN CORPUSCULAR VOLUME 90 fl (80-97); MONOCYTES % (AUTO) 9.8 % (3-13); RED BLOOD COUNT 3.06 10^6/uL (3.72-5.28); RED CELL DISTRIBUTION WIDTH 19.5 % (11.5-14.0); SEGMENTED NEUTROPHILS % (AUTO) 77.7 % (42-78); TOTAL CELLS COUNTED % (AUTO) 100 %; WHITE BLOOD COUNT 12.9 10^3/uL (4.0-10.5)
[2018-03-20 00:47] LABS: ALANINE AMINOTRANSFERASE 39 U/L (9-52); ALBUMIN 3.2 g/dL (3.5-5.0); ALKALINE PHOSPHATASE 271 U/L (38-126); ANION GAP 5 (5-19); ASPARTATE AMINO TRANSFERASE 255 U/L (14-36); BILIRUBIN,DIRECT 0.4 mg/dL (0.0-0.4); BILIRUBIN,TOTAL 1.6 mg/dL (0.2-1.3); BLOOD UREA NITROGEN 10 mg/dL (7-20); CALCIUM 10.1 mg/dL (8.4-10.2); CARBON DIOXIDE 33 mmol/L (22-30); CHLORIDE 104 mmol/L (98-107); CREATINE KINASE 312 U/L (30-135); GLUCOSE 85 mg/dL (75-110); POTASSIUM 3.2 mmol/L (3.6-5.0); SODIUM 142.1 mmol/L (137-145); TOTAL PROTEIN 8.6 g/dL (6.3-8.2)
[2018-03-20 00:56] LABS: PLATELET COUNT 77 10^3/uL (150-450)
[2018-03-20] MEDS ORDERED: DEXTROSE 50%-WATER 25 GM/50 ML DISP.SYRIN IV ONE (01:14)
[2018-03-20] MEDS ORDERED: PIPERACILLIN SODIUM/TAZOBACTAM 3.375 GM in NORMAL SALINE 100 ML IV ONE ×2 (06:45→08:00)
[2018-03-20] MEDS ORDERED: DEXTROSE 40% GEL 15 GM TUBE PO PRN ×2 (07:59)
[2018-03-20] MEDS ORDERED: DEXTROSE 50%-WATER 25 GM/50 ML DISP.SYRIN IV PRN ×2 (07:59)
[2018-03-20] MEDS ORDERED: GLUCAGON,HUMAN RECOMB 1 MG INJ IM PRN (07:59)
[2018-03-20] MEDS: INSULIN LISPRO 100 UNIT/ML 3 ML VIAL SUBCUT SCH ×4 (08:55→22:44)
[2018-03-20] MEDS: LANSOPRAZOLE 30 MG TAB.RAP.DR PO SCH (08:56)
[2018-03-20] MEDS: NORMAL SALINE 1000 ML 1,000 ML IV PRN (10:08)
--- NOTE | 2018-03-20 11:09 | EKG REPORT ---
SEVERITY:- ABNORMAL ECG - SINUS RHYTHM LEFT AXIS DEVIATION LEFT VENTRICULAR HYPERTROPHY BORDERLINE T ABNORMALITIES, INFERIOR LEADS : Confirmed by: Chad Card 20-Mar-2018 11:08:52
[2018-03-20] MEDS: ACETAMINOPHEN 650 MG SUPP.RECT PR PRN (11:57)
[2018-03-20] MEDS ORDERED: PIPERACILLIN SODIUM/TAZOBACTAM 3.375 GM in NORMAL SALINE 100 ML IV SCH (12:00)
[2018-03-20] MEDS: PIPERACILLIN SODIUM/TAZOBACTAM 3.375 GM in NORMAL SALINE 100 ML IV SCH ×2 (16:00→21:29)
[2018-03-20] MEDS ORDERED: ONDANSETRON HCL INJ/PF 4 MG/2 ML SDV IV PRN (18:51)
--- NOTE | 2018-03-20 18:51 | PDOC H&P ---
History of Present Illness Admission Date/PCP: 03/20/18 07:57 DAVID NORTON History of Present Illness: TRELL ISLAS is a 72 year old female patient known to my practice who was recently transferred to [facility] for short term rehabilitation. Patient morbidities include metastatic colon cancer with liver involvement. she had right hemicolectomy with end to end anastomosis due to persistent bleeding. She was brought back to the ED due to persistent hypoglycemia. There was no signi ficant history of her medication administration regarding diabetes mellitus management but family reported poor oral intake due to poor appetite. No [id number] fever, chills, nausea or vomiting. No abdominal pain. She was discharged to SNF recently on oral Augmentin therapy. Due to persistence of hypo glycemia despite administration of IV glucose solution and several doses of Glucagon. Her initial evaluation in the ED revealed leukocytosis which was comparatively better than at her last hospitalization discharge, elevated serum Lactic acid level, hypokalemia, and POC hypoglycemia. Her morbidities include Hypertension, Hyperlipidemia, Diabetes Mellitus Type 2, Colorectal Cancer - with liver metastases, Gastroesophageal Reflux Disease, Osteoarthritis and Depression.She was advised hospitalization for further evaluation and management. Past Medical History Cardiac Medical History: Reports: Hyperlipidema, Hypertension Neurological Medical History: Denies: Seizures Endocrine Medical History: Reports: Diabetes Mellitus Type 2 Malignancy Medical History: Reports: Colorectal Cancer - with liver metastases and currently on chemotherapy. GI Medical History: Reports: Gastroesophageal Reflux Disease Psychiatric Medical History: Reports: Depression Past Surgical History Past Surgical History: Reports: Hysterectomy, Vascular Surgery - Port for chemo, Other - Biopsies of colon Social History Lives with: Intermediate Smoking Status: Unknown if Ever Smoked Frequency of Alcohol Use: None Hx Recreational Drug Use: No Drugs: None Hx Prescription Drug Abuse: No - Advance Directive Resuscitation Status: Do Not Resuscitate Family History Family History: Reviewed & Not Pertinent Parental Family History Reviewed: Yes Children Family History Reviewed: Yes Sibling(s) Family History Reviewed.: Yes Medication/Allergy Home Medications: Abhr Suppository 1 supp SD Q4HP PRN 03/20/18 Acetaminophen [Tylenol 650 mg Supp] 650 mg SD Q4HP PRN 03/20/18 Ezetimibe [Zetia 10 mg Tablet] 10 mg PO QHS 03/20/18 Furosemide [Lasix 40 mg Tablet] 40 mg PO Q12HP PRN 03/20/18 Glucagon,Human Recombinant [Glucagon Emergency Kit] 1 mg SQ DAILYP PRN 03/20/18 Haloperidol [Haldol 1 mg Tablet] 1 mg PO Q4HP PRN 03/20/18 Haloperidol [Haldol 1 mg Tablet] 1 mg SD Q4HP PRN 03/20/18 Haloperidol [Haldol 1 mg Tablet] 1 mg SL Q4HP PRN 03/20/18 Hum Insulin NPH/Reg Insulin Hm [Novolin 70-30 100 Unit/ml Vial] 50 unit SQ QHS 03/20/18 Hum Insulin NPH/Reg Insulin Hm [Novolin 70-30 100 Unit/ml Vial] 90 unit SQ QAM 03/20/18 Insulin Aspart [Novolog Insulin (Aspart) 100 unit/mL] 0 unit SQ .SLIDING SCALE 03/20/18 Lorazepam [Ativan 0.5 mg Tablet] 0.5 mg PO Q4HP PRN 03/20/18 Lorazepam [Ativan 0.5 mg Tablet] 0.5 mg PO Q4HP PRN 03/20/18 Lorazepam [Ativan 0.5 mg Tablet] 0.5 mg SL Q4HP PRN 03/20/18 Metoprolol Succinate [Toprol Xl 50 mg Tab.sr] 50 mg PO DAILY 03/20/18 Morphine Sulfate [Roxanol] 0.25 ml PO Q1HP PRN 03/20/18 Morphine Sulfate [Roxanol] 0.25 ml SL Q1HP PRN 03/20/18 Omeprazole 20 mg PO DAILY 03/20/18 Prochlorperazine Maleate [Compazine 10 mg Tablet] 10 mg PO Q6HP PRN 03/20/18 Prochlorperazine [Compazine] 25 mg SD Q12HP PRN 03/20/18 Tramadol HCl [Ultram 50 mg Tablet] 50 mg PO Q6HP PRN 03/20/18 Allergies/Adverse Reactions: pioglitazone [From Actos] Allergy (Verified 02/28/18 18:05) pravastatin Allergy (Verified 02/28/18 18:05) simvastatin Allergy (Verified 02/28/18 17:15) Review of Systems Constitutional: ABSENT: chills, fever(s), headache(s), weight gain, weight loss Eyes: PRESENT: visual disturbances Ears: PRESENT: hearing changes Nose, Mouth, and Throat: ABSENT: as per HPI, headache(s), mouth pain, sore throat, vertigo, other Cardiovascular: ABSENT: chest pain, dyspnea on exertion, edema, orthropnea, palpitations Respiratory: ABSENT: cough, hemoptysis Gastrointestinal: PRESENT: other - anorexia. ABSENT: abdominal pain, constipation, diarrhea, hematemesis, hematochezia, nausea, vomiting Genitourinary: ABSENT: dysuria, hematuria Musculoskeletal: PRESENT: muscle weakness - generalized. ABSENT: joint swelling Integumentary: ABSENT: rash, wounds Neurological: PRESENT: weakness Endocrine: ABSENT: cold intolerance, heat intolerance, polydipsia, polyuria Hematologic/Lymphatic: ABSENT: easy bleeding, easy bruising, lymphadenopathy Allergic/Immunologic: PRESENT: seasonal rhinorrhea Physical Exam Vital Signs: Temp Pulse Resp BP Pulse Ox 98.4 F 111 H 18 125/66 97 03/20/18 15:36 03/20/18 15:36 03/20/18 15:36 03/20/18 15:36 03/20/18 15:36 Intake & Output 03/19/18 03/20/18 03/21/18 06:59 06:59 06:59 Intake Total 490 200 Output Total 200 Balance 490 0 Weight 80.1 kg 80.1 kg General appearance: PRESENT: disheveled, hard of hearing, mild distress - chronically ill looking, obese Head exam: PRESENT: atraumatic, normocephalic Eye exam: PRESENT: conjunctiva pink, EOMI, PERRLA. ABSENT: scleral icterus Ear exam: PRESENT: normal external ear exam Mouth exam: PRESENT: dry mucosa - fairly dry Teeth exam: PRESENT: poor dentation Neck exam: PRESENT: full ROM. ABSENT: carotid bruit, JVD, lymphadenopathy, thyromegaly Respiratory exam: PRESENT: clear to auscultation [place], decreased breath sounds - at lung bases Cardiovascular exam: PRESENT: RRR. ABSENT: diastolic murmur, rubs, systolic murmur Vascular exam: ABSENT: pallor GI/Abdominal exam: PRESENT: normal bowel sounds, soft. ABSENT: distended, guarding, mass, organolmegaly, rebound, tenderness Rectal exam: PRESENT: deferred Extremities exam: ABSENT: pedal edema Musculoskeletal exam: PRESENT: deformity - due to multiple joints involvement with arthritis. ABSENT: ambulatory Neurological exam: PRESENT: alert, awake Psychiatric exam: PRESENT: appropriate affect, normal mood. ABSENT: homicidal ideation, suicidal ideation Skin exam: PRESENT: dry, warm Results Laboratory Results: 03/20/18 00:15 03/20/18 00:15 03/19/18 03/20/18 03/20/18 23:48 00:15 00:15 WBC 12.9 H RBC 3.06 L Hgb 8.9 L Hct 27.5 L MCV 90 MCH 29.1 MCHC 32.4 RDW 19.5 H Plt Count 77 L Seg Neutrophils % 77.7 Lymphocytes % 12.1 L Monocytes % 9.8 Eosinophils % 0.0 Basophils % 0.4 Absolute Neutrophils 10.0 H Absolute Lymphocytes 1.6 Absolute Monocytes 1.3 Absolute Eosinophils 0.0 Absolute Basophils 0.0 Sodium 142.1 Potassium 3.2 L Chloride 104 Carbon Dioxide 33 H Anion Gap 5 BUN 10 Creatinine 0.55 Est GFR ( Amer) > 60 Est GFR (Non-Af Amer) > 60 Glucose 85 Lactic Acid Calcium 10.1 Total Bilirubin 1.6 H AST 255 H ALT 39 Alkaline Phosphatase 271 H Total Protein 8.6 H Albumin 3.2 L Urine Color CAITLIN Urine Appearance SLIGHTLY-CLOUDY Urine pH 6.0 Ur Specific Romeo 1.021 Urine Protein 100 H Urine Glucose (UA) NEGATIVE Urine Ketones NEGATIVE Urine Blood SMALL H Urine Nitrite NEGATIVE Ur Leukocyte Esterase NEGATIVE Urine WBC (Auto) 6 Urine RBC (Auto) 13 03/20/18 03/20/18 01:34 05:30 WBC RBC Hgb Hct MCV MCH MCHC RDW Plt Count Seg Neutrophils % Lymphocytes % Monocytes % Eosinophils % Basophils % Absolute Neutrophils Absolute Lymphocytes Absolute Monocytes Absolute Eosinophils Absolute Basophils Sodium Potassium Chloride Carbon Dioxide Anion Gap BUN Creatinine Est GFR ( Amer) Est GFR (Non-Af Amer) Glucose Lactic Acid 3.1 H 4.0 H Calcium Total Bilirubin AST ALT Alkaline Phosphatase Total Protein Albumin Urine Color Urine Appearance Urine pH Ur Specific Romeo Urine Protein Urine Glucose (UA) Urine Ketones Urine Blood Urine Nitrite Ur Leukocyte Esterase Urine WBC (Auto) Urine RBC (Auto) 03/20/18 03/20/18 00:15 00:15 Creatine Kinase 312 H Troponin I < 0.012 Assessment & Plan - Diagnosis (1) Hypoglycemia associated with diabetes Is this a current diagnosis for this admission?: Yes Plan: PAtient was maintained on IV D5W until her POC [id number] revealed persistent hyperglycemia. She will be maintained on normal saline infusion therapy and sliding scale humalog insulin therapy. (2) Lactic acidosis Is this a current diagnosis for this admission?: Yes Plan: Patient's lactic acidosis indicate probable sepsis. Her persistent hypoglycemia maybe due to the sepsis process. She will be started on IV antibiotic therapy and IV fluid support. (3) Probable sepsis Is this a current diagnosis for this admission?: Yes Plan: Follow up on blood and urine culture findings. She was started on IV Zosyn empirical coverage. (4) Adult failure to thrive syndrome Is this a current diagnosis for this admission?: Yes Plan: This maybe due to her poor appetite. She had episode of vomiting at dinner time today. I will start on Megace 200 mg p.o daily and Zbec vitamin. Encourage oral supplementation and Beneprotein support. (5) Metastatic colon cancer to liver Is this a current diagnosis for this admission?: Yes Plan: Continue supportive care. I had extensive discussion with patient and family at bedside regarding resuscitation. Presently patient decided to be DNR status during this hospitalization. (6) Type 2 diabetes mellitus Qualifiers: Diabetes mellitus fdc insulin use: with fdc use Diabetes mellitus complication status: with neurologic complications Diabetes mellitus complication detail: with polyneuropathy Qualified Code(s): E11.42 - Type 2 diabetes mellitus with diabetic polyneuropathy; Z79.4 - prison (current) use of insulin Is this a current diagnosis for this admission?: Yes Plan: Continue medication management as her oral food intake improves. (7) HTN (hypertension) Qualifiers: Hypertension type: essential hypertension Qualified Code(s): I10 - Essential (primary) hypertension Is this a current diagnosis for this admission?: Yes Plan: Continue to monitor her blood pressure and restart her antiHTN medication as indicated. (8) HLD (hyperlipidemia) Qualifiers: Hyperlipidemia type: unspecified Qualified Code(s): E78.5 - Hyperlipidemia, unspecified Is this a current diagnosis for this admission?: Yes Plan: Restart her medication management as her oral intake improves. (9) GERD (gastroesophageal reflux disease) Qualifiers: Esophagitis presence: without esophagitis Qualified Code(s): K21.9 - Gastro-esophageal reflux disease without esophagitis Is this a current diagnosis for this admission?: Yes Plan: Maintain on PUD prophylactic therapy with Lansoprazole. - Time Time Spent: 50 to 70 Minutes Medications reviewed and adjusted accordingly: Yes Anticipated discharge: SNF Within: Other - Inpatient Certification Based on my medical assessment, after consideration of the patient's c omorbidities, presenting symptoms, or acuity I expect that the services needed warrant INPATIENT care.: Yes I certify that my determination is in accordance with my understanding of Medicare's requirements for reasonable and necessary INPATIENT services [42 CFR 412.3e].: Yes Medical Necessity: Significant Comorbidiites Make Outpatient Treatment Too Risky, Need Close Monitoring Due to Risk of Patient Decompensation, Need For IV Fluids, Need For Continuous Telemetry Monitoring, Need for IV Antibiotics, Risk of Complication if Not Cared For in Hospital, Risk of Diagnosis Which Will Require Inpatient Eval/Care/Monitoring Post Hospital Care: D/C or Transfer Summary - Plan Summary Plan Summary: See admitting attending physician orders as per above outlined care plan. I will change her status to full inpatient at this time.
[2018-03-20] MEDS: MEGESTROL ACETATE SUSP 400 MG/10 ML UDCUP PO SCH (20:00)
[2018-03-20] MEDS: POTASSI CL 20 MEQ/50 ML RIDER 20 MEQ/50 ML RTUPB IV SCH ×2 (20:08→22:06)
[2018-03-21] MEDS: POTASSI CL 20 MEQ/50 ML RIDER 20 MEQ/50 ML RTUPB IV SCH (00:13)
[2018-03-21] MEDS: NORMAL SALINE 1000 ML 1,000 ML IV PRN ×2 (00:15→12:31)
[2018-03-21] MEDS: PIPERACILLIN SODIUM/TAZOBACTAM 3.375 GM in NORMAL SALINE 100 ML IV SCH ×4 (02:55→21:42)
[2018-03-21] MEDS: LANSOPRAZOLE 30 MG TAB.RAP.DR PO SCH (05:05)
[2018-03-21] MEDS: INSULIN LISPRO 100 UNIT/ML 3 ML VIAL SUBCUT SCH ×4 (08:00→22:21)
[2018-03-21 08:47] LABS: BLOOD UREA NITROGEN 10 mg/dL (7-20); CALCIUM 8.3 mg/dL (8.4-10.2); GLUCOSE 122 mg/dL (75-110); POTASSIUM 3.8 mmol/L (3.6-5.0)
[2018-03-21 09:02] LABS: CARBON DIOXIDE 30 mmol/L (22-30); CHLORIDE 111 mmol/L (98-107); SODIUM 144.1 mmol/L (137-145)
[2018-03-21 09:07] LABS: ANION GAP 3 (5-19)
[2018-03-21] MEDS: MULTIVIT-STRESS FORMULA/ZINC TABLET PO SCH (09:59)
[2018-03-21] MEDS: MEGESTROL ACETATE SUSP 400 MG/10 ML UDCUP PO SCH (09:59)
[2018-03-21] MEDS: ACETAMINOPHEN 650 MG SUPP.RECT PR PRN (10:11)
--- NOTE | 2018-03-21 16:01 | PDOC PROGRESS REPORT ---
Subjective Progress Note for:: 03/21/18 Subjective:: No more vomiting but appetite and PO intake remain poor. No nausea, fever or chills. No abdominal pain., No chest pain or difficulty with breathing. Remain on IV Zosyn coverage for probable sepsis. Reason For Visit: PERSISTENT HYPOGLYCEMIA;PROBABLE SEPSIS;FAILURE TO Physical Exam Vital Signs: Temp Pulse Resp BP Pulse Ox 97.8 F 108 H 28 H 122/55 L 96 03/21/18 11:15 03/21/18 11:15 03/21/18 11:15 03/21/18 11:15 03/21/18 11:15 Intake & Output 03/20/18 03/21/18 03/22/18 06:59 06:59 06:59 Intake Total 490 2502 1070 Output Total 1000 200 Balance 490 1502 870 Weight 80.1 kg 78.7 kg General appearance: PRESENT: no acute distress Head exam: PRESENT: atraumatic, normocephalic Eye exam: PRESENT: conjunctiva pink, EOMI, PERRLA. ABSENT: scleral icterus Ear exam: PRESENT: normal external ear exam Mouth exam: PRESENT: moist Teeth exam: PRESENT: poor dentation Respiratory exam: PRESENT: clear to auscultation [place], decreased breath sounds - at lung bases Cardiovascular exam: PRESENT: RRR. ABSENT: diastolic murmur, rubs, systolic murmur Vascular exam: ABSENT: pallor GI/Abdominal exam: PRESENT: normal bowel sounds, soft. ABSENT: distended, guarding, mass, organolmegaly, rebound, tenderness Extremities exam: PRESENT: other - generalized weakness from poor calorie intake.. ABSENT: pedal edema Musculoskeletal exam: PRESENT: deformity - related to multiple joints involvement with arthritis. ABSENT: tenderness Neurological exam: PRESENT: alert, awake Psychiatric exam: PRESENT: appropriate affect, normal mood. ABSENT: homicidal ideation, suicidal ideation Results Laboratory Results: 03/20/18 00:15 03/21/18 08:08 03/20/18 03/21/18 00:15 08:08 Sodium 144.1 Potassium 3.8 Chloride 111 H Carbon Dioxide 30 Anion Gap 3 L BUN 10 Creatinine 0.59 Est GFR ( Amer) > 60 Est GFR (Non-Af Amer) > 60 Glucose 122 H Calcium 8.3 L Magnesium 1.9 03/20/18 03/20/18 00:15 00:15 Creatine Kinase 312 H Troponin I < 0.012 Assessment & Plan - Diagnosis (1) Hypoglycemia associated with diabetes Is this a current diagnosis for this admission?: Yes (2) Lactic acidosis Is this a current diagnosis for this admission?: Yes (3) Probable sepsis Is this a current diagnosis for this admission?: Yes (4) Adult failure to thrive syndrome Is this a current diagnosis for this admission?: Yes (5) Metastatic colon cancer to liver Is this a current diagnosis for this admission?: Yes (6) Type 2 diabetes mellitus Qualifiers: Diabetes mellitus quality intern insulin use: with quality intern use Diabetes mellitus complication status: with neurologic complications Diabetes mellitus complication detail: with polyneuropathy Qualified Code(s): E11.42 - Type 2 diabetes mellitus with diabetic polyneuropathy; 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 Is this a current diagnosis for this admission?: Yes (7) HTN (hypertension) Qualifiers: Hypertension type: essential hypertension Qualified Code(s): I10 - Essential (primary) hypertension Is this a current diagnosis for this admission?: Yes (8) HLD (hyperlipidemia) Qualifiers: Hyperlipidemia type: unspecified Qualified Code(s): E78.5 - Hyperlipidemia, unspecified Is this a current diagnosis for this admission?: Yes (9) GERD (gastroesophageal reflux disease) Qualifiers: Esophagitis presence: without esophagitis Qualified Code(s): K21.9 - Gastro-esophageal reflux disease without esophagitis Is this a current diagnosis for this admission?: Yes - Time Time Spent with patient: 25-34 minutes Medications reviewed and adjusted accordingly: Yes Anticipated discharge: SNF - for short term rehabilitation Within: Other - Inpatient Certification Based on my medical assessment, after consideration of the patient's comorbidities, presenting symptoms, or acuity I expect that the services needed warrant INPATIENT care.: Yes I certify that my determination is in accordance with my understanding of Medicare's requirements for reasonable and necessary INPATIENT services [42 CFR 412.3e].: Yes Medical Necessity: Significant Comorbidiites Make Outpatient Treatment Too Risky, Need Close Monitoring Due to Risk of Patient Decompensation, Need For IV Fluids, Need For Continuous Telemetry Monitoring, Need for IV Antibiotics, Risk of Complication if Not Cared For in Hospital, Risk of Diagnosis Which Will Require Inpatient Eval/Care/Monitoring Post Hospital Care: D/C or Transfer Summary - Plan Summary Plan Summary: Continue current medication management. Liberalized food intake. Follow u on blood and urine culture findings.
[2018-03-22] MEDS: PIPERACILLIN SODIUM/TAZOBACTAM 3.375 GM in NORMAL SALINE 100 ML IV SCH ×4 (02:06→20:47)
[2018-03-22] MEDS: NORMAL SALINE 1000 ML 1,000 ML IV PRN ×2 (02:09→20:56)
[2018-03-22] MEDS: LANSOPRAZOLE 30 MG TAB.RAP.DR PO SCH (05:10)
[2018-03-22 05:23] LABS: ABSOLUTE LYMPHOCYTES (AUTO) 0.9 10^3/uL (0.5-4.7); ABSOLUTE MONOCYTES (AUTO) 0.8 10^3/uL (0.1-1.4); ABSOLUTE NEUT (AUTO) 7.4 10^3/uL (1.7-8.2); BASOPHILS % (AUTO) 0.2 % (0-2); EOSINOPHILS % (AUTO) 0.1 % (0-6); HEMATOCRIT 22.1 % (36.0-47.0); LYMPHOCYTES % (AUTO) 9.8 % (13-45); MEAN CORPUSCULAR HEMOGLOBIN 29.8 pg (27.0-33.4); MEAN CORPUSCULAR HGB CONC 32.8 g/dL (32.0-36.0); MEAN CORPUSCULAR VOLUME 91 fl (80-97); MONOCYTES % (AUTO) 8.6 % (3-13); RED BLOOD COUNT 2.44 10^6/uL (3.72-5.28); RED CELL DISTRIBUTION WIDTH 20.1 % (11.5-14.0); SEGMENTED NEUTROPHILS % (AUTO) 81.3 % (42-78); TOTAL CELLS COUNTED % (AUTO) 100 %
[2018-03-22 05:44] LABS: ALANINE AMINOTRANSFERASE 35 U/L (9-52); ALBUMIN 2.3 g/dL (3.5-5.0); ALKALINE PHOSPHATASE 227 U/L (38-126); ANION GAP 5 (5-19); ASPARTATE AMINO TRANSFERASE 99 U/L (14-36); BILIRUBIN,DIRECT 1.2 mg/dL (0.0-0.4); BILIRUBIN,TOTAL 2.2 mg/dL (0.2-1.3); BLOOD UREA NITROGEN 9 mg/dL (7-20); CALCIUM 8.3 mg/dL (8.4-10.2); CARBON DIOXIDE 28 mmol/L (22-30); CHLORIDE 111 mmol/L (98-107); GLUCOSE 227 mg/dL (75-110); POTASSIUM 3.6 mmol/L (3.6-5.0); TOTAL PROTEIN 6.7 g/dL (6.3-8.2)
[2018-03-22 06:19] LABS: PLATELET COUNT 33 10^3/uL (150-450)
[2018-03-22 06:23] LABS: HEMOGLOBIN 7.3 g/dL (12.0-15.5)
[2018-03-22] MEDS: MEGESTROL ACETATE SUSP 400 MG/10 ML UDCUP PO SCH (09:25)
[2018-03-22] MEDS: MULTIVIT-STRESS FORMULA/ZINC TABLET PO SCH (09:25)
[2018-03-22] MEDS: INSULIN LISPRO 100 UNIT/ML 3 ML VIAL SUBCUT SCH ×3 (09:26→23:16)
--- NOTE | 2018-03-22 20:30 | PDOC PROGRESS REPORT ---
Subjective Progress Note for:: 03/22/18 Subjective:: Patient seen by the bedside ,she has no new complaints Reason For Visit: PERSISTENT HYPOGLYCEMIA;PROBABLE SEPSIS;FAILURE TO Physical Exam Vital Signs: Temp Pulse Resp BP Pulse Ox 98.2 F 103 H 18 140/72 H 98 03/22/18 15:00 03/22/18 15:00 03/22/18 15:00 03/22/18 15:00 03/22/18 15:00 Intake & Output 03/21/18 03/22/18 03/23/18 06:59 06:59 06:59 Intake Total 2502 3136 100 Output Total 1000 1150 775 Balance 1502 1986 -675 Weight 78.7 kg 79.3 kg General appearance: PRESENT: no acute distress Eye exam: PRESENT: PERRLA Respiratory exam: PRESENT: clear to auscultation [place] Cardiovascular exam: PRESENT: +S1, +S2 GI/Abdominal exam: PRESENT: soft Neurological exam: PRESENT: alert Results Laboratory Results: 03/22/18 04:29 03/22/18 04:29 03/22/18 03/22/18 04:29 04:29 WBC 9.0 RBC 2.44 L Hgb 7.3 L Hct 22.1 L MCV 91 MCH 29.8 MCHC 32.8 RDW 20.1 H Plt Count 33 L Seg Neutrophils % 81.3 H Lymphocytes % 9.8 L Monocytes % 8.6 Eosinophils % 0.1 Basophils % 0.2 Absolute Neutrophils 7.4 Absolute Lymphocytes 0.9 Absolute Monocytes 0.8 Absolute Eosinophils 0.0 Absolute Basophils 0.0 Sodium 144.0 Potassium 3.6 Chloride 111 H Carbon Dioxide 28 Anion Gap 5 BUN 9 Creatinine 0.49 L Est GFR ( Amer) > 60 Est GFR (Non-Af Amer) > 60 Glucose 227 H Calcium 8.3 L Total Bilirubin 2.2 H AST 99 H ALT 35 Alkaline Phosphatase 227 H Total Protein 6.7 Albumin 2.3 L 03/19/18 23:48 Catheterized Urine Urine Culture - Final NO GROWTH 2 DAYS 03/20/18 03/20/18 00:15 00:15 Creatine Kinase 312 H Troponin I < 0.012 Assessment & Plan - Diagnosis (1) Hypoglycemia Is this a current diagnosis for this admission?: Yes Plan: Continue the same treatment (2) Colon cancer Qualifiers: Colon location: unspecified part of colon Qualified Code(s): C18.9 - Malignant neoplasm of colon, unspecified Is this a current diagnosis for this admission?: Yes
[2018-03-23] MEDS: PIPERACILLIN SODIUM/TAZOBACTAM 3.375 GM in NORMAL SALINE 100 ML IV SCH ×4 (03:29→21:03)
[2018-03-23] MEDS: LANSOPRAZOLE 30 MG TAB.RAP.DR PO SCH (05:00)
[2018-03-23] MEDS: INSULIN LISPRO 100 UNIT/ML 3 ML VIAL SUBCUT SCH ×4 (07:39→21:31)
[2018-03-23] MEDS: MEGESTROL ACETATE SUSP 400 MG/10 ML UDCUP PO SCH (09:01)
[2018-03-23] MEDS: MULTIVIT-STRESS FORMULA/ZINC TABLET PO SCH (09:01)
--- NOTE | 2018-03-23 09:47 | RADIOLOGY REPORT (SQ) ---
EXAM DESCRIPTION: CHEST SINGLE VIEW COMPLETED DATE/TIME: 03/23/2018 9:10 am REASON FOR STUDY: possible aspiration COMPARISON: 03/01/2018. FINDINGS: Single-view chest AP portable upright. Low lung volumes with resultant vascular crowding. Stable cardiomediastinal silhouette. No developing pulmonary infiltrates. Overall stable appearance of the chest. Right port remains in place, unchanged. TECHNICAL DOCUMENTATION: JOB ID: [id number] Reading location - IP/workstation name: [email or web address]
[2018-03-23] MEDS: NORMAL SALINE 1000 ML 1,000 ML IV PRN ×2 (11:00→21:04)
[2018-03-23 13:51] LABS: ABSOLUTE LYMPHOCYTES (AUTO) 1.4 10^3/uL (0.5-4.7); ABSOLUTE MONOCYTES (AUTO) 0.7 10^3/uL (0.1-1.4); BASOPHILS % (AUTO) 0.1 % (0-2); EOSINOPHILS % (AUTO) 0.3 % (0-6); LYMPHOCYTES % (AUTO) 14.9 % (13-45); MEAN CORPUSCULAR HEMOGLOBIN 29.6 pg (27.0-33.4); MEAN CORPUSCULAR HGB CONC 33.1 g/dL (32.0-36.0); MEAN CORPUSCULAR VOLUME 89 fl (80-97); MONOCYTES % (AUTO) 7.4 % (3-13); RED BLOOD COUNT 2.24 10^6/uL (3.72-5.28); RED CELL DISTRIBUTION WIDTH 19.6 % (11.5-14.0); SEGMENTED NEUTROPHILS % (AUTO) 77.3 % (42-78); TOTAL CELLS COUNTED % (AUTO) 100 %; WHITE BLOOD COUNT 9.1 10^3/uL (4.0-10.5)
[2018-03-23 14:14] LABS: HEMOGLOBIN 6.6 g/dL (12.0-15.5); PLATELET COUNT 21 10^3/uL (150-450)
--- NOTE | 2018-03-23 14:33 | PDOC PROGRESS REPORT ---
Subjective Progress Note for:: 03/23/18 Subjective:: Patient seen by the bedside she has stage IV colon cancer, the lab work from today demonstrated severe anemia, hemoglobin 6.6, platelet count 20,000 this most likely myelosuppression from chemotherapy, she be transfused with packed red blood cells, no immediate need for Platelet transfusion at this time there is no bleeding from any site Reason For Visit: PERSISTENT HYPOGLYCEMIA;PROBABLE SEPSIS;FAILURE TO Physical Exam Vital Signs: Temp Pulse Resp BP Pulse Ox 97.8 F 103 H 18 158/81 H 97 03/23/18 11:02 03/23/18 11:02 03/23/18 07:09 03/23/18 11:02 03/23/18 11:02 Intake & Output 03/22/18 03/23/18 03/24/18 06:59 06:59 06:59 Intake Total 3136 1400 100 Output Total 1150 1175 350 Balance 1985 225 -250 Weight 79.3 kg 80 kg General appearance: PRESENT: no acute distress Eye exam: PRESENT: PERRLA Respiratory exam: PRESENT: clear to auscultation [place] Cardiovascular exam: PRESENT: +S1, +S2 GI/Abdominal exam: PRESENT: soft Neurological exam: PRESENT: alert Results Laboratory Results: 03/23/18 13:20 03/22/18 04:29 03/23/18 13:20 WBC 9.1 RBC 2.24 L Hgb 6.6 L Hct 20.0 L MCV 89 MCH 29.6 MCHC 33.1 RDW 19.6 H Plt Count 21 L* Seg Neutrophils % 77.3 Lymphocytes % 14.9 Monocytes % 7.4 Eosinophils % 0.3 Basophils % 0.1 Absolute Neutrophils 7.0 Absolute Lymphocytes 1.4 Absolute Monocytes 0.7 Absolute Eosinophils 0.0 Absolute Basophils 0.0 03/19/18 23:48 Catheterized Urine Urine Culture - Final NO GROWTH 2 DAYS 03/20/18 03/20/18 00:15 00:15 Creatine Kinase 312 H Troponin I < 0.012 Assessment & Plan - Diagnosis (1) Hypoglycemia Is this a current diagnosis for this admission?: Yes (2) Colon cancer Qualifiers: Colon location: unspecified part of colon Qualified Code(s): C18.9 - Malignant neoplasm of colon, unspecified Is this a current diagnosis for this admission?: Yes (3) Thrombocytopenia Is this a current diagnosis for this admission?: Yes Plan: Transfuse platelet (4) Anemia Qualifiers: Anemia type: other cause Other causes of anemia: acute posthemorrhagic Qualified Code(s): D62 - Acute posthemorrhagic anemia Is this a current diagnosis for this admission?: Yes Plan: Transfuse 2 units of PRBC
[2018-03-24] MEDS: PIPERACILLIN SODIUM/TAZOBACTAM 3.375 GM in NORMAL SALINE 100 ML IV SCH (03:57)
[2018-03-24] MEDS: LANSOPRAZOLE 30 MG TAB.RAP.DR PO SCH (05:27)
[2018-03-24 05:43] LABS: ABSOLUTE LYMPHOCYTES (AUTO) 1.4 10^3/uL (0.5-4.7); ABSOLUTE MONOCYTES (AUTO) 0.7 10^3/uL (0.1-1.4); ABSOLUTE NEUT (AUTO) 7.7 10^3/uL (1.7-8.2); BASOPHILS % (AUTO) 0.2 % (0-2); EOSINOPHILS % (AUTO) 0.4 % (0-6); HEMATOCRIT 26.6 % (36.0-47.0); LYMPHOCYTES % (AUTO) 14.3 % (13-45); MEAN CORPUSCULAR HEMOGLOBIN 29.9 pg (27.0-33.4); MEAN CORPUSCULAR HGB CONC 33.5 g/dL (32.0-36.0); MEAN CORPUSCULAR VOLUME 89 fl (80-97); MONOCYTES % (AUTO) 7.1 % (3-13); RED BLOOD COUNT 2.98 10^6/uL (3.72-5.28); RED CELL DISTRIBUTION WIDTH 17.8 % (11.5-14.0); TOTAL CELLS COUNTED % (AUTO) 100 %; WHITE BLOOD COUNT 9.9 10^3/uL (4.0-10.5)
[2018-03-24 05:56] LABS: HEMOGLOBIN 8.9 g/dL (12.0-15.5)
[2018-03-24 06:06] LABS: PLATELET COUNT 20 10^3/uL (150-450)
--- NOTE | 2018-03-24 07:44 | PDOC PROGRESS REPORT ---
Subjective Progress Note for:: 03/24/18 Subjective:: Generalized deconditioning persist. She reported increase oral intake and improvement in her appetite. There is worsening anemia and thrombocytopenia which may be due to myelosuppression from Zosyn. No fever or chills. No abdominal pain, nausea or vomiting. Reason For Visit: PERSISTENT HYPOGLYCEMIA;PROBABLE SEPSIS;FAILURE TO Physical Exam Vital Signs: Temp Pulse Resp BP Pulse Ox 98.4 F 82 20 174/82 H 100 03/24/18 03:55 03/24/18 03:55 03/24/18 03:55 03/24/18 03:55 03/24/18 01:42 Intake & Output 03/23/18 03/24/18 03/25/18 06:59 06:59 06:59 Intake Total 1400 2805 Output Total 1175 1350 Balance 225 1455 Weight 80 kg 82.6 kg Physical Exam: General appearance: PRESENT: no acute distress Head exam: PRESENT: atraumatic, normocephalic Eye exam: PRESENT: conjunctiva pink, EOMI, PERRLA. ABSENT: scleral icterus Ear exam: PRESENT: normal external ear exam Mouth exam: PRESENT: moist Teeth exam: PRESENT: poor dentation Respiratory exam: PRESENT: clear to auscultation [place], decreased breath sounds - at lung bases Cardiovascular exam: PRESENT: RRR. ABSENT: diastolic murmur, rubs, systolic murmur Vascular exam: ABSENT: pallor GI/Abdominal exam: PRESENT: normal bowel sounds, soft. ABSENT: distended, guarding, mass, organomegaly, rebound, tenderness Extremities exam: PRESENT: other - generalized weakness from poor calorie intake. ABSENT: pedal edema Musculoskeletal exam: PRESENT: deformity - related to multiple joints involvement with arthritis. ABSENT: tenderness Neurological exam: PRESENT: alert, awake, appropriate in responses. Psychiatric exam: PRESENT: appropriate affect, normal mood. ABSENT: homicidal ideation, suicidal ideation Results Laboratory Results: 03/24/18 05:30 03/22/18 04:29 03/23/18 03/23/18 03/24/18 13:20 15:24 05:30 WBC 9.1 9.9 RBC 2.24 L 2.98 L Hgb 6.6 L 8.9 L D Hct 20.0 L 26.6 L MCV 89 89 MCH 29.6 29.9 MCHC 33.1 33.5 RDW 19.6 H 17.8 H Plt Count 21 L* 20 L* Seg Neutrophils % 77.3 78.0 Lymphocytes % 14.9 14.3 Monocytes % 7.4 7.1 Eosinophils % 0.3 0.4 Basophils % 0.1 0.2 Absolute Neutrophils 7.0 7.7 Absolute Lymphocytes 1.4 1.4 Absolute Monocytes 0.7 0.7 Absolute Eosinophils 0.0 0.0 Absolute Basophils 0.0 0.0 Blood Type A POSITIVE Antibody Screen NEGATIVE 03/20/18 03/20/18 00:15 00:15 Creatine Kinase 312 H Troponin I < 0.012 Assessment & Plan - Diagnosis (1) Hypoglycemia associated with diabetes Is this a current diagnosis for this admission?: Yes (2) Lactic acidosis Is this a current diagnosis for this admission?: Yes (3) Probable sepsis Is this a current diagnosis for this admission?: Yes (4) Adult failure to thrive syndrome Is this a current diagnosis for this admission?: Yes (5) Metastatic colon cancer to liver Is this a current diagnosis for this admission?: Yes (6) Type 2 diabetes mellitus Qualifiers: Diabetes mellitus terminal supervisor insulin use: with [facility] use Diabetes mellitus complication status: with neurologic complications Diabetes mellitus complication detail: with polyneuropathy Qualified Code(s): E11.42 - Type 2 diabetes mellitus with diabetic polyneuropathy; Z79.4 - penitentiary (current) use of insulin Is this a current diagnosis for this admission?: Yes (7) HTN (hypertension) Qualifiers: Hypertension type: essential hypertension Qualified Code(s): I10 - Essential (primary) hypertension Is this a current diagnosis for this admission?: Yes (8) HLD (hyperlipidemia) Qualifiers: Hyperlipidemia type: unspecified Qualified Code(s): E78.5 - Hyperlipidemia, unspecified Is this a current diagnosis for this admission?: Yes (9) GERD (gastroesophageal reflux disease) Qualifiers: Esophagitis presence: without esophagitis Qualified Code(s): K21.9 - Gastro-esophageal reflux disease without esophagitis Is this a current diagnosis for this admission?: Yes - Time Time Spent with patient: 25-34 minutes Medications reviewed and adjusted accordingly: Yes Anticipated discharge: SNF Within: Other - Inpatient Certification Based on my medical assessment, after consideration of the patient's comorbidities, presenting symptoms, or acuity I expect that the services needed warrant INPATIENT care.: Yes I certify that my determination is in accordance with my understanding of Medicare's requirements for reasonable and necessary INPATIENT services [42 CFR 412.3e].: Yes Medical Necessity: Need Close Monitoring Due to Risk of Patient Decompensation, Need For IV Fluids, Need For Continuous Telemetry Monitoring, Need for IV Antibiotics, Risk of Complication if Not Cared For in Hospital, Risk of Diagnosis Which Will Require Inpatient Eval/Care/Monitoring Post Hospital Care: D/C or Transfer Summary - Plan Summary Plan Summary: Blood and urine culture are no growth to date. In view of her worsening thrombocyytopenia, I will d/c IV Zosyn. Request PT evaluation. continue other current medication management. D/C Hernandez catheter and allow use of bedside commode.
[2018-03-24] MEDS: INSULIN LISPRO 100 UNIT/ML 3 ML VIAL SUBCUT SCH ×4 (08:20→22:12)
[2018-03-24] MEDS: MEGESTROL ACETATE SUSP 400 MG/10 ML UDCUP PO SCH (09:54)
[2018-03-24] MEDS: MULTIVIT-STRESS FORMULA/ZINC TABLET PO SCH (09:54)
[2018-03-24] MEDS: NORMAL SALINE 1000 ML 1,000 ML IV PRN (11:11)
[2018-03-24 13:51] LABS: PATH REVIEW PATHOLOGIST REVIEWED
[2018-03-25] MEDS: NORMAL SALINE 1000 ML 1,000 ML IV PRN ×2 (01:25→13:44)
[2018-03-25] MEDS: LANSOPRAZOLE 30 MG TAB.RAP.DR PO SCH (05:37)
--- NOTE | 2018-03-25 08:04 | PDOC PROGRESS REPORT ---
Subjective Progress Note for:: 03/25/18 Subjective:: No chest pain or difficulty with breathing. No fever or chills. Patient reported some improvement in her appetite and po intake. No abdominal pain, nausea or vomiting. Reason For Visit: PERSISTENT HYPOGLYCEMIA;PROBABLE SEPSIS;FAILURE TO Physical Exam Vital Signs: Temp Pulse Resp BP Pulse Ox 98.3 F 94 26 H 168/84 H 99 03/25/18 07:27 03/25/18 07:27 03/25/18 07:27 03/25/18 07:27 03/25/18 07:27 Intake & Output 03/24/18 03/25/18 03/26/18 06:59 06:59 06:59 Intake Total 2805 2168 Output Total 1350 400 Balance 1455 1768 Weight 82.6 kg 82.7 kg Physical Exam: General appearance: PRESENT: no acute distress Head exam: PRESENT: atraumatic, normocephalic Eye exam: PRESENT: conjunctiva pink, EOMI, PERRLA. ABSENT: pallor, scleral icterus Respiratory exam: PRESENT: clear to auscultation [place], decreased breath sounds - at lung bases Cardiovascular exam: PRESENT: RRR. ABSENT: diastolic murmur, rubs, systolic murmur GI/Abdominal exam: PRESENT: normal bowel sounds, soft. ABSENT: distended, guarding, mass, organomegaly, rebound, tenderness Extremities exam: PRESENT: other - generalized weakness from poor calorie intake. ABSENT: pedal edema Musculoskeletal exam: PRESENT: deformity - related to multiple joints involvement with arthritis. ABSENT: tenderness Neurological exam: PRESENT: alert, awake, appropriate in responses. Psychiatric exam: PRESENT: appropriate affect, normal mood. ABSENT: homicidal ideation, suicidal ideation Results Laboratory Results: 03/24/18 05:30 03/22/18 04:29 03/20/18 01:34 Blood Blood Culture - Final NO GROWTH IN 5 DAYS 03/20/18 00:15 Blood Blood Culture - Final NO GROWTH IN 5 DAYS 03/20/18 03/20/18 00:15 00:15 Creatine Kinase 312 H Troponin I < 0.012 Assessment & Plan - Diagnosis (1) Hypoglycemia associated with diabetes Is this a current diagnosis for this admission?: Yes (2) Lactic acidosis Is this a current diagnosis for this admission?: Yes (3) Probable sepsis Is this a current diagnosis for this admission?: Yes (4) Adult failure to thrive syndrome Is this a current diagnosis for this admission?: Yes (5) Metastatic colon cancer to liver Is this a current diagnosis for this admission?: Yes (6) Type 2 diabetes mellitus Qualifiers: 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 insulin use: with regional intermodal truck driver use Diabetes mellitus complication status: with neurologic complications Diabetes mellitus complication detail: with polyneuropathy Qualified Code(s): E11.42 - Type 2 diabetes mellitus with diabetic polyneuropathy; Z79.4 - dedicated intermodal truck driver (current) use of insulin Is this a current diagnosis for this admission?: Yes (7) HTN (hypertension) Qualifiers: Hypertension type: essential hypertension Qualified Code(s): I10 - Essential (primary) hypertension Is this a current diagnosis for this admission?: Yes (8) HLD (hyperlipidemia) Qualifiers: Hyperlipidemia type: unspecified Qualified Code(s): E78.5 - Hyperlipidemia, unspecified Is this a current diagnosis for this admission?: Yes (9) GERD (gastroesophageal reflux disease) Qualifiers: Esophagitis presence: without esophagitis Qualified Code(s): K21.9 - Gastro-esophageal reflux disease without esophagitis Is this a current diagnosis for this admission?: Yes - Time Time Spent with patient: 25-34 minutes Medications reviewed and adjusted accordingly: Yes Anticipated discharge: SNF Within: Other - Inpatient Certification Based on my medical assessment, after consideration of the patient's comorbidities, presenting symptoms, or acuity I expect that the services needed warrant INPATIENT care.: Yes I certify that my determination is in accordance with my understanding of Medicare's requirements for reasonable and necessary INPATIENT services [42 CFR 412.3e].: Yes Medical Necessity: Significant Comorbidiites Make Outpatient Treatment Too Risky, Need Close Monitoring Due to Risk of Patient Decompensation, Need For IV Fluids, Need For Continuous Telemetry Monitoring, Risk of Complication if Not Cared For in Hospital Post Hospital Care: D/C or Transfer Summary - Plan Summary Plan Summary: Continue current medication management. Follow up social welfare clerk/environmental planner regarding SNF transfer when bed is available.
[2018-03-25] MEDS: INSULIN LISPRO 100 UNIT/ML 3 ML VIAL SUBCUT SCH ×4 (08:30→22:12)
[2018-03-25] MEDS: MULTIVIT-STRESS FORMULA/ZINC TABLET PO SCH (09:18)
[2018-03-25] MEDS: MEGESTROL ACETATE SUSP 400 MG/10 ML UDCUP PO SCH (09:18)
[2018-03-25 12:31] LABS: ABSOLUTE EOSINOPHILS # (AUTO) 0.1 10^3/uL (0.0-0.6); ABSOLUTE LYMPHOCYTES (AUTO) 1.5 10^3/uL (0.5-4.7); ABSOLUTE MONOCYTES (AUTO) 0.7 10^3/uL (0.1-1.4); ABSOLUTE NEUT (AUTO) 6.8 10^3/uL (1.7-8.2); BASOPHILS % (AUTO) 0.3 % (0-2); EOSINOPHILS % (AUTO) 0.8 % (0-6); HEMATOCRIT 26.1 % (36.0-47.0); HEMOGLOBIN 8.8 g/dL (12.0-15.5); LYMPHOCYTES % (AUTO) 16.9 % (13-45); MEAN CORPUSCULAR HGB CONC 33.8 g/dL (32.0-36.0); MEAN CORPUSCULAR VOLUME 89 fl (80-97); MONOCYTES % (AUTO) 8.1 % (3-13); RED BLOOD COUNT 2.94 10^6/uL (3.72-5.28); RED CELL DISTRIBUTION WIDTH 17.9 % (11.5-14.0); SEGMENTED NEUTROPHILS % (AUTO) 73.9 % (42-78); TOTAL CELLS COUNTED % (AUTO) 100 %; WHITE BLOOD COUNT 9.1 10^3/uL (4.0-10.5)
[2018-03-25 12:53] LABS: ALANINE AMINOTRANSFERASE 22 U/L (9-52); ALBUMIN 2.2 g/dL (3.5-5.0); ALKALINE PHOSPHATASE 258 U/L (38-126); ASPARTATE AMINO TRANSFERASE 47 U/L (14-36); BILIRUBIN,DIRECT 0.5 mg/dL (0.0-0.4); BILIRUBIN,TOTAL 1.6 mg/dL (0.2-1.3); BLOOD UREA NITROGEN 4 mg/dL (7-20); CALCIUM 9.2 mg/dL (8.4-10.2); GLUCOSE 176 mg/dL (75-110); TOTAL PROTEIN 6.5 g/dL (6.3-8.2)
[2018-03-25 12:58] LABS: CARBON DIOXIDE 28 mmol/L (22-30); CHLORIDE 110 mmol/L (98-107); POTASSIUM 2.9 mmol/L (3.6-5.0); SODIUM 141.4 mmol/L (137-145)
[2018-03-25 12:59] LABS: ANION GAP 3 (5-19)
[2018-03-25 13:24] LABS: PLATELET COUNT 28 10^3/uL (150-450)
[2018-03-25] MEDS ORDERED: RAMIPRIL 2.5 MG CAPSULE PO SCH (15:30)
[2018-03-25] MEDS: POTASSIUM CHLORIDE 20 MEQ/50 ML RTU IV SCH ×3 (15:57→22:02)
[2018-03-25] MEDS ORDERED: MAGNESIUM SULFATE/D5W 1 GM/100 ML RTUPB IV ONE (20:30)
[2018-03-26] MEDS: LANSOPRAZOLE 30 MG TAB.RAP.DR PO SCH (05:24)
[2018-03-26] MEDS: NORMAL SALINE 1000 ML 1,000 ML IV PRN (05:25)
[2018-03-26] MEDS: INSULIN LISPRO 100 UNIT/ML 3 ML VIAL SUBCUT SCH ×4 (08:14→22:12)
--- NOTE | 2018-03-26 08:37 | PDOC PROGRESS REPORT ---
Subjective Progress Note for:: 03/26/18 Subjective:: No chest pain or difficulty with breathing. Encouraged out of bed to chair mobility and participation in physical therapy. She denied nausea, vomiting or abdominal pain. No reported fever or chills. Generalized weakness do persist. Remain on IV fluid support. Reason For Visit: PERSISTENT HYPOGLYCEMIA;PROBABLE SEPSIS;FAILURE TO Physical Exam Vital Signs: Temp Pulse Resp BP Pulse Ox 97.8 F 95 24 H 182/88 H 98 03/26/18 03:18 03/26/18 07:00 03/26/18 03:18 03/26/18 03:18 03/26/18 03:18 Intake & Output 03/25/18 03/26/18 03/27/18 06:59 06:59 06:59 Intake Total 2168 2629 Output Total 400 Balance 1768 2629 Weight 82.7 kg 81.7 kg Physical Exam: General appearance: PRESENT: no acute distress Head exam: PRESENT: atraumatic, normocephalic Eye exam: PRESENT: conjunctiva pink, EOMI, PERRLA. ABSENT: pallor, scleral icterus Respiratory exam: PRESENT: clear to auscultation [place], decreased breath sounds - at lung bases Cardiovascular exam: PRESENT: RRR. ABSENT: diastolic murmur, rubs, systolic murmur GI/Abdominal exam: PRESENT: normal bowel sounds, soft. ABSENT: distended, guarding, mass, organomegaly, rebound, tenderness Extremities exam: PRESENT: other - generalized weakness from poor calorie inta ke. ABSENT: pedal edema Musculoskeletal exam: PRESENT: deformity - related to multiple joints invol vement with arthritis. ABSENT: tenderness Neurological exam: PRESENT: alert, awake, appropriate in responses. Psychiatric exam: PRESENT: appropriate affect, normal mood. ABSENT: homicidal ideation, suicidal ideation Results Laboratory Results: 03/25/18 12:15 03/25/18 12:15 03/25/18 03/25/18 03/25/18 12:15 12:15 15:05 WBC 9.1 RBC 2.94 L Hgb 8.8 L Hct 26.1 L MCV 89 MCH 30.0 MCHC 33.8 RDW 17.9 H Plt Count 28 L* Seg Neutrophils % 73.9 Lymphocytes % 16.9 Monocytes % 8.1 Eosinophils % 0.8 Basophils % 0.3 Absolute Neutrophils 6.8 Absolute Lymphocytes 1.5 Absolute Monocytes 0.7 Absolute Eosinophils 0.1 Absolute Basophils 0.0 Sodium 141.4 Potassium 2.9 L* Chloride 110 H Carbon Dioxide 28 Anion Gap 3 L BUN 4 L Creatinine 0.37 L Est GFR ( Amer) > 60 Est GFR (Non-Af Amer) > 60 Glucose 176 H Calcium 9.2 Magnesium 1.6 Total Bilirubin 1.6 H AST 47 H ALT 22 Alkaline Phosphatase 258 H Total Protein 6.5 Albumin 2.2 L 03/20/18 03/20/18 00:15 00:15 Creatine Kinase 312 H Troponin I < 0.012 Assessment & Plan - Diagnosis (1) Hypoglycemia associated with diabetes Is this a current diagnosis for this admission?: Yes (2) Lactic acidosis Is this a current diagnosis for this admission?: Yes (3) Probable sepsis Is this a current diagnosis for this admission?: Yes (4) Adult failure to thrive syndrome Is this a current diagnosis for this admission?: Yes (5) Metastatic colon cancer to liver Is this a current diagnosis for this admission?: Yes (6) Type 2 diabetes mellitus Qualifiers: Diabetes mellitus superintendent marine oil terminal insulin use: with prison use Diabetes mellitus complication status: with neurologic complications Diabetes mellitus complication detail: with polyneuropathy Qualified Code(s): E11.42 - Type 2 diabetes mellitus with diabetic polyneuropathy; Z79.4 - [facility] (current) use of insulin Is this a current diagnosis for this admission?: Yes (7) HTN (hypertension) Qualifiers: Hypertension type: essential hypertension Qualified Code(s): I10 - Essential (primary) hypertension Is this a current diagnosis for this admission?: Yes (8) HLD (hyperlipidemia) Qualifiers: Hyperlipidemia type: unspecified Qualified Code(s): E78.5 - Hyperlipidemia, unspecified Is this a current diagnosis for this admission?: Yes (9) GERD (gastroesophageal reflux disease) Qualifiers: Esophagitis presence: without esophagitis Qualified Code(s): K21.9 - Gastro-esophageal reflux disease without esophagitis Is this a current diagnosis for this admission?: Yes - Time Time Spent with patient: 25-34 minutes Medications reviewed and adjusted accordingly: Yes Anticipated discharge: SNF Within: Other - Inpatient Certification Based on my medical assessment, after consideration of the patient's comorbidities, presenting symptoms, or acuity I expect that the services needed warrant INPATIENT care.: Yes I certify that my determination is in accordance with my understanding of Medicare's requirements for reasonable and necessary INPATIENT services [42 CFR 412.3e].: Yes Medical Necessity: Significant Comorbidiites Make Outpatient Treatment Too Risky, Need Close Monitoring Due to Risk of Patient Decompensation, Need For IV Fluids, Need For Continuous Telemetry Monitoring, Risk of Complication if Not Cared For in Hospital Post Hospital Care: D/C or Transfer Summary - Plan Summary Plan Summary: Increase Ramipril to 5 mg po daily. D/C IV fluid. Saline lock IV access. Emphasized P.O intake. Obtain CBC with diff, BMP, and Mag level. Continue all other current medication management.
[2018-03-26] MEDS: MULTIVIT-STRESS FORMULA/ZINC TABLET PO SCH (10:00)
[2018-03-26] MEDS: MEGESTROL ACETATE SUSP 400 MG/10 ML UDCUP PO SCH (10:05)
[2018-03-26] MEDS: RAMIPRIL 5 MG CAPSULE PO SCH (19:14)
[2018-03-26 21:09] LABS: ABSOLUTE EOSINOPHILS # (AUTO) 0.1 10^3/uL (0.0-0.6); ABSOLUTE LYMPHOCYTES (AUTO) 1.7 10^3/uL (0.5-4.7); ABSOLUTE MONOCYTES (AUTO) 0.7 10^3/uL (0.1-1.4); ABSOLUTE NEUT (AUTO) 6.2 10^3/uL (1.7-8.2); BASOPHILS % (AUTO) 0.4 % (0-2); HEMATOCRIT 26.4 % (36.0-47.0); HEMOGLOBIN 8.7 g/dL (12.0-15.5); MEAN CORPUSCULAR HEMOGLOBIN 29.9 pg (27.0-33.4); MEAN CORPUSCULAR HGB CONC 33.2 g/dL (32.0-36.0); MEAN CORPUSCULAR VOLUME 90 fl (80-97); RED BLOOD COUNT 2.93 10^6/uL (3.72-5.28); RED CELL DISTRIBUTION WIDTH 18.5 % (11.5-14.0); SEGMENTED NEUTROPHILS % (AUTO) 71.6 % (42-78); TOTAL CELLS COUNTED % (AUTO) 100 %; WHITE BLOOD COUNT 8.7 10^3/uL (4.0-10.5)
[2018-03-26 21:21] LABS: BLOOD UREA NITROGEN 4 mg/dL (7-20); CALCIUM 9.1 mg/dL (8.4-10.2); GLUCOSE 218 mg/dL (75-110); POTASSIUM 3.2 mmol/L (3.6-5.0)
[2018-03-26 21:28] LABS: CARBON DIOXIDE 28 mmol/L (22-30); CHLORIDE 110 mmol/L (98-107); SODIUM 141.5 mmol/L (137-145)
[2018-03-26 21:29] LABS: ANION GAP 4 (5-19)
[2018-03-26 21:33] LABS: PLATELET COUNT 32 10^3/uL (150-450)
[2018-03-27] MEDS: LANSOPRAZOLE 30 MG TAB.RAP.DR PO SCH (05:10)
--- NOTE | 2018-03-27 08:26 | PDOC PROGRESS REPORT ---
Subjective Progress Note for:: 03/27/18 Subjective:: No chest pain or difficulty with breathing. No nausea, vomiting or abdominal pain. P.O intake remain a challenge. No fever or chills. Reason For Visit: PERSISTENT HYPOGLYCEMIA;PROBABLE SEPSIS;FAILURE TO Physical Exam Vital Signs: Temp Pulse Resp BP Pulse Ox 98.0 F 81 20 165/75 H 100 03/27/18 03:12 03/27/18 07:00 03/27/18 03:12 03/27/18 03:12 03/27/18 03:12 Intake & Output 03/26/18 03/27/18 03/28/18 06:59 06:59 06:59 Intake Total 2629 1577 Balance 2629 1577 Weight 81.7 kg 81.3 kg Physical Exam: General appearance: PRESENT: no acute distress Head exam: PRESENT: atraumatic, normocephalic Eye exam: PRESENT: conjunctiva pink, EOMI, PERRLA. ABSENT: pallor, scleral icterus Respiratory exam: PRESENT: clear to auscultation [place], decreased breath sounds - at lung bases Cardiovascular exam: PRESENT: RRR. ABSENT: diastolic murmur, rubs, systolic murmur GI/Abdominal exam: PRESENT: normal bowel sounds, soft. ABSENT: distended, guarding, mass, organomegaly, rebound, tenderness Extremities exam: PRESENT: other - generalized weakness from poor calorie intake. ABSENT: pedal edema Musculoskeletal exam: PRESENT: deformity - related to multiple joints involvement with arthritis. ABSENT: tenderness Neurological exam: PRESENT: alert, awake, appropriate in responses. Psychiatric exam: PRESENT: appropriate affect, normal mood. ABSENT: homicidal ideation, suicidal ideation Results Laboratory Results: 03/26/18 20:31 03/26/18 20:31 03/26/18 03/26/18 20:31 20:31 WBC 8.7 RBC 2.93 L Hgb 8.7 L Hct 26.4 L MCV 90 MCH 29.9 MCHC 33.2 RDW 18.5 H Plt Count 32 L Seg Neutrophils % 71.6 Lymphocytes % 19.0 Monocytes % 8.0 Eosinophils % 1.0 Basophils % 0.4 Absolute Neutrophils 6.2 Absolute Lymphocytes 1.7 Absolute Monocytes 0.7 Absolute Eosinophils 0.1 Absolute Basophils 0.0 Sodium 141.5 Potassium 3.2 L Chloride 110 H Carbon Dioxide 28 Anion Gap 4 L BUN 4 L Creatinine 0.42 L Est GFR ( Amer) > 60 Est GFR (Non-Af Amer) > 60 Glucose 218 H Calcium 9.1 Magnesium 1.8 03/20/18 03/20/18 00:15 00:15 Creatine Kinase 312 H Troponin I < 0.012 Assessment & Plan - Diagnosis (1) Hypoglycemia associated with diabetes Is this a current diagnosis for this admission?: Yes (2) Lactic acidosis Is this a current diagnosis for this admission?: Yes (3) Probable sepsis Is this a current diagnosis for this admission?: Yes (4) Adult failure to thrive syndrome Is this a current diagnosis for this admission?: Yes (5) Metastatic colon cancer to liver Is this a current diagnosis for this admission?: Yes (6) Type 2 diabetes mellitus Qualifiers: 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 insulin use: with [facility] use Diabetes mellitus complication status: with neurologic complications Diabetes mellitus complication detail: with polyneuropathy Qualified Code(s): E11.42 - Type 2 diabetes mellitus with diabetic polyneuropathy; Z79.4 - assisted (current) use of insulin Is this a current diagnosis for this admission?: Yes (7) HTN (hypertension) Qualifiers: Hypertension type: essential hypertension Qualified Code(s): I10 - Essential (primary) hypertension Is this a current diagnosis for this admission?: Yes (8) HLD (hyperlipidemia) Qualifiers: Hyperlipidemia type: unspecified Qualified Code(s): E78.5 - Hyperlipidemia, unspecified Is this a current diagnosis for this admission?: Yes (9) GERD (gastroesophageal reflux disease) Qualifiers: Esophagitis presence: without esophagitis Qualified Code(s): K21.9 - Gastro-esophageal reflux disease without esophagitis Is this a current diagnosis for this admission?: Yes - Time Time Spent with patient: 25-34 minutes Medications reviewed and adjusted accordingly: Yes Within: Other - Inpatient Certification Based on my medical assessment, after consideration of the patient's comorbidities, presenting symptoms, or acuity I expect that the services needed warrant INPATIENT care.: Yes I certify that my determination is in accordance with my understanding of Medicare's requirements for reasonable and necessary INPATIENT services [42 CFR 412.3e].: Yes Medical Necessity: Significant Comorbidiites Make Outpatient Treatment Too Risky, Need Close Monitoring Due to Risk of Patient Decompensation, Need For Con tinuous Telemetry Monitoring, Need for Nebulizer Therapy and Monitoring of Response, Risk of Complication if Not Cared For in Hospital, Risk of Diagnosis Which Will Require Inpatient Eval/Care/Monitoring Post Hospital Care: D/C or Transfer Summary - Plan Summary Plan Summary: IV Potassium chloride ride replacement in progress. Increase Megace to 400 mg po daily. Obtain CBC, BMP in AM. Continue all other current medication management.
[2018-03-27] MEDS: MULTIVIT-STRESS FORMULA/ZINC TABLET PO SCH (11:37)
[2018-03-27] MEDS: RAMIPRIL 5 MG CAPSULE PO SCH (11:37)
[2018-03-27] MEDS: POTASSI CL 20 MEQ/50 ML RIDER 20 MEQ/50 ML RTUPB IV SCH ×3 (11:38→16:22)
[2018-03-27] MEDS: INSULIN LISPRO 100 UNIT/ML 3 ML VIAL SUBCUT SCH ×4 (11:47→21:39)
[2018-03-27] MEDS: MEGESTROL ACETATE SUSP 400 MG/10 ML UDCUP PO SCH (11:49)
[2018-03-28] MEDS: TRAMADOL HCL 50 MG TABLET PO PRN (02:29)
[2018-03-28 04:59] LABS: HEMOGLOBIN 9.1 g/dL (12.0-15.5); MEAN CORPUSCULAR HEMOGLOBIN 30.1 pg (27.0-33.4); MEAN CORPUSCULAR HGB CONC 33.7 g/dL (32.0-36.0); MEAN CORPUSCULAR VOLUME 89 fl (80-97); RED BLOOD COUNT 3.03 10^6/uL (3.72-5.28); RED CELL DISTRIBUTION WIDTH 19.1 % (11.5-14.0); WHITE BLOOD COUNT 9.2 10^3/uL (4.0-10.5)
[2018-03-28 05:15] LABS: ANION GAP 5 (5-19); CALCIUM 9.3 mg/dL (8.4-10.2); CARBON DIOXIDE 30 mmol/L (22-30); CHLORIDE 110 mmol/L (98-107); GLUCOSE 164 mg/dL (75-110); POTASSIUM 3.4 mmol/L (3.6-5.0); SODIUM 144.6 mmol/L (137-145)
[2018-03-28 05:16] LABS: BLOOD UREA NITROGEN < 2 mg/dL (7-20)
[2018-03-28 05:17] LABS: PLATELET COUNT 37 10^3/uL (150-450)
[2018-03-28] MEDS: LANSOPRAZOLE 30 MG TAB.RAP.DR PO SCH (05:19)
[2018-03-28] MEDS: INSULIN LISPRO 100 UNIT/ML 3 ML VIAL SUBCUT SCH ×4 (08:36→21:22)
[2018-03-28] MEDS ORDERED: POTASSI CL 20 MEQ/50 ML RIDER 20 MEQ/50 ML RTUPB IV ONE (08:41)
[2018-03-28] MEDS: MEGESTROL ACETATE SUSP 400 MG/10 ML UDCUP PO SCH (09:53)
[2018-03-28] MEDS: MULTIVIT-STRESS FORMULA/ZINC TABLET PO SCH (09:54)
[2018-03-28] MEDS: POTASSI CL 20 MEQ/50 ML RIDER 20 MEQ/50 ML RTUPB IV SCH ×3 (09:54→14:32)
[2018-03-28] MEDS: RAMIPRIL 5 MG CAPSULE PO SCH (09:54)
--- NOTE | 2018-03-28 16:12 | PDOC PROGRESS REPORT ---
Subjective Progress Note for:: 03/28/18 Subjective:: Patient is more confused today. She has been refusing food and medication administration. No chest pain or difficulty with breathing. No fever or chills. Reason For Visit: PERSISTENT HYPOGLYCEMIA;PROBABLE SEPSIS;FAILURE TO Physical Exam Vital Signs: Temp Pulse Resp BP Pulse Ox 97.7 F 95 16 156/68 H 100 03/28/18 02:58 03/28/18 02:58 03/28/18 02:58 03/28/18 02:58 03/28/18 02:58 Intake & Output 03/27/18 03/28/18 03/29/18 06:59 06:59 06:59 Intake Total 1577 318 Balance 1577 318 Weight 81.3 kg 77.9 kg General appearance: PRESENT: no acute distress Head exam: PRESENT: atraumatic, normocephalic Ear exam: PRESENT: normal external ear exam Mouth exam: PRESENT: moist Teeth exam: PRESENT: poor dentation Respiratory exam: PRESENT: decreased breath sounds - at lung bases Cardiovascular exam: PRESENT: RRR. ABSENT: diastolic murmur, rubs, systolic murmur Vascular exam: PRESENT: normal capillary refill. ABSENT: pallor GI/Abdominal exam: PRESENT: normal bowel sounds, soft. ABSENT: distended, guarding, mass, organolmegaly, rebound, tenderness Neurological exam: PRESENT: alert, awake Psychiatric exam: ABSENT: agitated Skin exam: PRESENT: dry, warm Results Laboratory Results: 03/28/18 04:10 03/28/18 04:10 03/28/18 03/28/18 04:10 04:10 WBC 9.2 RBC 3.03 L Hgb 9.1 L Hct 27.0 L MCV 89 MCH 30.1 MCHC 33.7 RDW 19.1 H Plt Count 37 L Sodium 144.6 Potassium 3.4 L Chloride 110 H Carbon Dioxide 30 Anion Gap 5 BUN < 2 L Creatinine 0.32 L Est GFR ( Amer) > 60 Est GFR (Non-Af Amer) > 60 Glucose 164 H Calcium 9.3 03/20/18 03/20/18 00:15 00:15 Creatine Kinase 312 H Troponin I < 0.012 Assessment & Plan - Diagnosis (1) Hypoglycemia associated with diabetes Is this a current diagnosis for this admission?: Yes (2) Lactic acidosis Is this a current diagnosis for this admission?: Yes (3) Probable sepsis Is this a current diagnosis for this admission?: Yes (4) Adult failure to thrive syndrome Is this a current diagnosis for this admission?: Yes (5) Metastatic colon cancer to liver Is this a current diagnosis for this admission?: Yes Plan: I will discuss with patient and family regarding hospice placement due to her declining clinical status and refusal of care. (6) Type 2 diabetes mellitus Qualifiers: Diabetes mellitus prison insulin use: with director of head start use Diabetes mellitus complication status: with neurologic complications Diabetes mellitus complication detail: with polyneuropathy Qualified Code(s): E11.42 - Type 2 diabetes mellitus with diabetic polyneuropathy; Z79.4 - senior care (current) use of insulin Is this a current diagnosis for this admission?: Yes (7) HTN (hypertension) Qualifiers: Hypertension type: essential hypertension Qualified Code(s): I10 - [facility] (primary) hypertension Is this a current diagnosis for this admission?: Yes (8) HLD (hyperlipidemia) Qualifiers: Hyperlipidemia type: unspecified Qualified Code(s): E78.5 - Hyperlipidemia, unspecified Is this a current diagnosis for this admission?: Yes (9) GERD (gastroesophageal reflux disease) Qualifiers: Esophagitis presence: without esophagitis Qualified Code(s): K21.9 - Gastro-esophageal reflux disease without esophagitis Is this a current diagnosis for this admission?: Yes (10) Hypokalemia due to inadequate potassium intake Is this a current diagnosis for this admission?: Yes Plan: Maintain on IV potassium chloride replacement. - Time Time Spent with patient: 25-34 minutes Medications reviewed and adjusted accordingly: Yes Anticipated discharge: Hospice Within: Other - Inpatient Certification Based on my medical assessment, after consideration of the patient's comorbidities, presenting symptoms, or acuity I expect that the services needed warrant INPATIENT care.: Yes I certify that my determination is in accordance with my understanding of Medicare's requirements for reasonable and necessary INPATIENT services [42 CFR 412.3e].: Yes Medical Necessity: Significant Comorbidiites Make Outpatient Treatment Too Risky, Need Close Monitoring Due to Risk of Patient Decompensation, Need For Continuous Telemetry Monitoring, Risk of Complication if Not Cared For in Hospital, Risk of Diagnosis Which Will Require Inpatient Eval/Care/Monitoring Post Hospital Care: D/C Community Relations Officer Documentation, D/C or Transfer Summary - Plan Summary Plan Summary: Continue current management with care plan towards hospice placement.
[2018-03-29] MEDS: LANSOPRAZOLE 30 MG TAB.RAP.DR PO SCH (05:16)
[2018-03-29] MEDS: INSULIN LISPRO 100 UNIT/ML 3 ML VIAL SUBCUT SCH ×4 (07:43→21:27)
[2018-03-29] MEDS: RAMIPRIL 5 MG CAPSULE PO SCH (10:12)
[2018-03-29] MEDS: MEGESTROL ACETATE SUSP 400 MG/10 ML UDCUP PO SCH (10:12)
[2018-03-29] MEDS: MULTIVIT-STRESS FORMULA/ZINC TABLET PO SCH (10:12)
--- NOTE | 2018-03-29 15:58 | PDOC PROGRESS REPORT ---
Subjective Progress Note for:: 03/29/18 Subjective:: Patient remain confused and taking her clothing off. No chest pain or difficulty with breathing. No fever or chills. Reason For Visit: PERSISTENT HYPOGLYCEMIA;PROBABLE SEPSIS;FAILURE TO Physical Exam Vital Signs: Temp Pulse Resp BP Pulse Ox 98.4 F 117 H 16 147/78 H 97 03/29/18 15:17 03/29/18 15:17 03/29/18 15:17 03/29/18 15:17 03/29/18 15:17 Intake & Output 03/28/18 03/29/18 03/30/18 06:59 06:59 06:59 Intake Total 318 400 200 Output Total 1250 725 Balance 318 850 -525 Weight 77.9 kg 78.5 kg Physical Exam: General appearance: PRESENT: no acute distress Head exam: PRESENT: atraumatic, normocephalic Respiratory exam: PRESENT: decreased breath sounds - at lung bases Cardiovascular exam: PRESENT: RRR. ABSENT: diastolic murmur, rubs, systolic murmur Vascular exam: PRESENT: normal capillary refill. ABSENT: pallor GI/Abdominal exam: PRESENT: normal bowel sounds, soft. ABSENT: distended, guarding, mass, organomegaly, rebound, tenderness Neurological exam: PRESENT: alert, awake Psychiatric exam: ABSENT: agitated Skin exam: PRESENT: dry, warm Results Laboratory Results: 03/28/18 04:10 03/28/18 04:10 03/20/18 03/20/18 00:15 00:15 Creatine Kinase 312 H Troponin I < 0.012 Assessment & Plan - Diagnosis (1) Hypoglycemia associated with diabetes Is this a current diagnosis for this admission?: Yes (2) Lactic acidosis Is this a current diagnosis for this admission?: Yes (3) Probable sepsis Is this a current diagnosis for this admission?: Yes (4) Adult failure to thrive syndrome Is this a current diagnosis for this admission?: Yes (5) Metastatic colon cancer to liver Is this a current diagnosis for this admission?: Yes (6) Type 2 diabetes mellitus Qualifiers: Diabetes mellitus 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 insulin use: with group home use Diabetes mellitus complication status: with neurologic complications Diabetes mellitus complication detail: with polyneuropathy Qualified Code(s): E11.42 - Type 2 diabetes mellitus with diabetic polyneuropathy; 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 Is this a current diagnosis for this admission?: Yes (7) HTN (hypertension) Qualifiers: Hypertension type: essential hypertension Qualified Code(s): I10 - Essential (primary) hypertension Is this a current diagnosis for this admission?: Yes (8) HLD (hyperlipidemia) Qualifiers: Hyperlipidemia type: unspecified Qualified Code(s): E78.5 - Hyperlipidemia, unspecified Is this a current diagnosis for this admission?: Yes (9) GERD (gastroesophageal reflux disease) Qualifiers: Esophagitis presence: without esophagitis Qualified Code(s): K21.9 - Gastro-esophageal reflux disease without esophagitis Is this a current diagnosis for this admission?: Yes (10) Hypokalemia due to inadequate potassium intake Is this a current diagnosis for this admission?: Yes - Time Time Spent with patient: 25-34 minutes Medications reviewed and adjusted accordingly: Yes Anticipated discharge: SNF Within: Other - Inpatient Certification Based on my medical assessment, after consideration of the patient's comorbidities, presenting symptoms, or acuity I expect that the services needed warrant INPATIENT care.: Yes I certify that my determination is in accordance with my understanding of Medic are's requirements for reasonable and necessary INPATIENT services [42 CFR 412.3e].: Yes Medical Necessity: Significant Comorbidiites Make Outpatient Treatment Too Risky, Need Close Monitoring Due to Risk of Patient Decompensation, Need For Continuous Telemetry Monitoring, Risk of Complication if Not Cared For in Hospital, Risk of Diagnosis Which Will Require Inpatient Eval/Care/Monitoring Post Hospital Care: D/C or Transfer Summary - Plan Summary Plan Summary: Continue current supportive care. Possible transfer to SNF for rehabilitation tomorrow.
[2018-03-29] MEDS: TRAMADOL HCL 50 MG TABLET PO PRN (18:36)
[2018-03-30] MEDS: LANSOPRAZOLE 30 MG TAB.RAP.DR PO SCH (05:26)
[2018-03-30] MEDS: INSULIN LISPRO 100 UNIT/ML 3 ML VIAL SUBCUT SCH ×2 (07:21→11:50)
[2018-03-30] MEDS: MEGESTROL ACETATE SUSP 400 MG/10 ML UDCUP PO SCH (09:13)
[2018-03-30] MEDS: MULTIVIT-STRESS FORMULA/ZINC TABLET PO SCH (09:13)
[2018-03-30] MEDS: RAMIPRIL 5 MG CAPSULE PO SCH (09:13)
--- NOTE | 2018-03-30 09:27 | PDOC TRANSFER SUMMARY ---
General - Admit/Disc Date/PCP Admission Date/Primary Care Provider: 03/20/18 18:10 DAVIDFRANCOIS NORTON Discharge Date: 03/30/18 - Discharge Diagnosis (1) Hypoglycemia associated with diabetes Is this a current diagnosis for this admission?: Yes (2) Lactic acidosis Is this a current diagnosis for this admission?: Yes (3) Probable sepsis Is this a current diagnosis for this admission?: Yes (4) Adult failure to thrive syndrome Is this a current diagnosis for this admission?: Yes (5) Metastatic colon cancer to liver Is this a current diagnosis for this admission?: Yes (6) Type 2 diabetes mellitus Is this a current diagnosis for this admission?: Yes (7) HTN (hypertension) Is this a current diagnosis for this admission?: Yes (8) HLD (hyperlipidemia) Is this a current diagnosis for this admission?: Yes (9) GERD (gastroesophageal reflux disease) Is this a current diagnosis for this admission?: Yes (10) Hypokalemia due to inadequate potassium intake Is this a current diagnosis for this admission?: Yes - Additional Information Resuscitation Status: Do Not Resuscitate Home Medications: Abhr Suppository 1 supp OH Q4HP PRN 03/20/18 Acetaminophen [Tylenol 650 mg Supp] 650 mg OH Q4HP PRN 03/20/18 Glucagon,Human Recombinant [Glucagon Emergency Kit] 1 mg SQ DAILYP PRN 03/20/18 Insulin Aspart [Novolog Insulin (Aspart) 100 unit/mL] 0 unit SQ .SLIDING SCALE 03/20/18 Metoprolol Succinate [Toprol Xl 50 mg Tab.sr] 50 mg PO DAILY 03/20/18 Morphine Sulfate [Roxanol] 0.25 ml PO Q1HP PRN 03/20/18 Morphine Sulfate [Roxanol] 0.25 ml SL Q1HP PRN 03/20/18 Omeprazole 20 mg PO DAILY 03/20/18 Prochlorperazine Maleate [Compazine 10 mg Tablet] 10 mg PO Q6HP PRN 03/20/18 Prochlorperazine [Compazine] 25 mg OH Q12HP PRN 03/20/18 Megestrol Acetate [Megace Kandis 400 mg/10 ml Udcup] 400 mg PO DAILY udc 03/30/18 Multivit-Stress Formula/Zinc [Zbec Tablet] 1 tab PO DAILY tablet 03/30/18 Ramipril [Altace 5 mg Capsule] 5 mg PO DAILY capsule 03/30/18 Tramadol HCl [Ultram 50 mg Tablet] 50 mg PO Q8HP PRN tablet 03/30/18 History of Present Illness Admission Date/PCP: 03/20/18 18:10 DAVID NORTON History of Present Illness: TRELL ISLAS is a 72 year old female patient known to my practice who was recently transferred to [facility] for short term rehabilitation. Patient morbidities include metastatic colon cancer with liver involvement. she had right hemicolectomy with end to end anastomosis due to persistent bleeding. She was brought back to the ED due to persistent hypoglycemia. There was no significant history of her medication administration regarding diabetes mellitus management but family reported poor oral intake due to poor appetite. No reort4 ed fever, chills, nausea or vomiting. No abdominal pain. She was discharged to SNF recently on oral Augmentin therapy. Due to persistence of hypoglycemia despite administration of IV glucose solution and several doses of Glucagon. Her initial evaluation in the ED revealed leukocytosis which was comparatively better than at her last hospitalization discharge, elevated serum Lactic acid level, hypokalemia, and POC hypoglycemia. Her morbidities include Hypertension, Hyperlipidemia, Diabetes Mellitus Type 2, Colorectal Cancer with liver metastases, Gastroesophageal Reflux Disease, Osteoarthritis and Depression.She was advised hospitalization for further evaluation and management. Hospital Course Hospital Course: She was initially treated for with IV dextrose infusion for persistent hypoglycemia. She was started on IV antibiotic due to elevated lactic acid level and concern for sepsis. Her blood culture was no growth after 5 days. Her antibiotic was eventually discontinued with resolution of her initial leukocytosis. Also, her hospital stay was significant for poor oral intake and failure to thrive. She was started on Megace therapy with minimal response. Family and patient did agree to SNF short term rehabilitation. I had extensive discussion with patient and family regarding intensity and extent of care plan. They are agreeable to [facility] short term rehabilitation with eventual hospice placement. She will be transferred to [facility] per choice today. She will remain on DNR status and future follow up in the office if necessary as needed. Physical Exam Vital Signs: Temp Pulse Resp BP Pulse Ox 98.1 F 107 H 20 145/76 H 99 03/30/18 07:26 03/30/18 07:26 03/30/18 07:26 03/30/18 07:26 03/30/18 07:26 Intake & Output 03/29/18 03/30/18 03/31/18 06:59 06:59 06:59 Intake Total 400 250 Output Total 1250 1750 Balance -850 -1500 Weight 78.5 kg 75.4 kg General appearance: PRESENT: no acute distress Head exam: PRESENT: atraumatic, normocephalic Eye exam: PRESENT: conjunctiva pink, EOMI, PERRLA. ABSENT: pallor, scleral icte kristen Ear exam: PRESENT: normal external ear exam Mouth exam: PRESENT: moist Teeth exam: PRESENT: poor dentation Respiratory exam: PRESENT: clear to auscultation [place], decreased breath sounds - at lung bases Cardiovascular exam: PRESENT: RRR. ABSENT: diastolic murmur, rubs, systolic murmur GI/Abdominal exam: PRESENT: normal bowel sounds, soft. ABSENT: distended, guarding, mass, organomegaly, rebound, tenderness Extremities exam: PRESENT: other - generalized weakness from poor calorie intake. ABSENT: pedal edema Musculoskeletal exam: PRESENT: deformity - related to multiple joints involvement with arthritis. ABSENT: tenderness Neurological exam: PRESENT: alert, awake, appropriate in responses. Psychiatric exam: PRESENT: appropriate affect, normal mood. ABSENT: homicidal ideation, suicidal ideation Results Laboratory Results: 03/28/18 04:10 03/28/18 04:10 03/20/18 03/20/18 00:15 00:15 Creatine Kinase 312 H Troponin I < 0.012 Transfer Plan - Disposition Transfer Plan: Transfer to [facility] for short term rehabilitation and possible hospice care. - Time Spent with Patient Time spent with patient: Greater than 30 Minutes - I had extensive discussion with patient and family regarding care plan. They are agreeable to SNF placment for rehabilitation as much as possible but patient overall prognosis remain poor and she is a candidate for hospice placement. Qualifiers - * PATIENT BEING DISCHARGED WITH ANY OF THE FOLLOWING DIAGNOSIS: No Plan Discharge Plan: Transfer to [facility] for short term rehabilitation and possible hospice care.
[2018-03-30 12:04] VITALS: BP 139/72
== END 2018-03-30 15:05 | disposition hospice, inpatient (51) | DRG 637 ==
LOC: ER 22:02 → UNDOADMOB 03-20 01:23 → EH 03-20 01:23 → 3N 03-20 12:13 → OBSVTOIN 03-20 18:10
PROVIDERS: ADMIT Internal Medicine Geriatric Medicine; ATTEND Internal Medicine Geriatric Medicine
DX: E11.649 Type 2 diabetes mellitus with hypoglycemia without coma (principal); A41.9 Sepsis, unspecified organism; C78.7 Secondary malignant neoplasm of liver and intrahepatic bile duct; Z85.038 Personal history of other malignant neoplasm of large intestine; R62.7 Adult failure to thrive; Z68.32 Body mass index [BMI] 32.0-32.9, adult; Z66 Do not resuscitate; I10 Essential (primary) hypertension; E78.5 Hyperlipidemia, unspecified; K21.9 Gastro-esophageal reflux disease without esophagitis; M19.90 Unspecified osteoarthritis, unspecified site; F32.9 Major depressive disorder, single episode, unspecified; Z79.4 Long term (current) use of insulin; Z79.899 Other long term (current) drug therapy; Z90.710 Acquired absence of both cervix and uterus; Z88.8 Allergy status to other drugs, medicaments and biological substances
CPT/HCPCS: 36415; 36430; 51702; 71045; 80048; 80053; 81001; 82550; 82962; 83605; 83735; 84484; 85025; 85027; 86850; 86900; 86901; 86920; 87040; 87086; 93005; 93010; 96360; 96361; 99285; G0378; J1642; J1815; J2405; J2543; J3475; J3480; J3490; J7030; P9016